=== PATIENT | male | born 1935 | race Hispanic/Latino ===

== ENCOUNTER 2016-06-29 02:21 | Inpatient (IN) | payer MEDICARE, BC ==
[2016-06-29 03:08] VITALS: BMI 37.7
--- NOTE | 2016-06-29 04:05 | ED PDOC ---
Arrival/HPI - General Historian: Patient, Spouse, Family, EMS - History of Present Illness Time/Duration: Prior to Arrival Symptom Course: Unchanged Quality: Aching (right knee) Severity Level: 6 <John Willis - Last Filed: 06/29/16 07:07> <Aramis Orozco - Last Filed: 06/29/16 20:40> - General Chief Complaint: Lower Extremity Problem/Injury Time Seen by Provider: 06/29/16 03:06 - History of Present Illness Narrative History of Present Illness (Text): 06/29/16 04:00 This is an 80 year old male with PMH notable for dementia and HTN presenting to the ED s/p fall at home. The patient reports that he does not remember falling. According to the patient's family, the patient has had deteriorating short term memory. The patient reports pain in his right knee. The patient reports that he felt weak since 06/28/16 in the AM. He states that he had difficulty moving his legs. The patient normally ambulates with an assistive device. The patient denies fever, chills, headache, chest pain, SOB, abdominal pain, changes in bowel/bladder, and extremity paresthesias. PMH: HTN, dementia Allergy: NKDA Surg: Pilonidal Cyst removal Soc: Quit smoking >10yrs ago, denies EtOH PMD; Dr. Bedolla Podiatry: Dr. Hay (John Willis) Past Medical History - Provider Review Nursing Documentation Reviewed: Yes - Travel History Have you recently traveled outside [place] w/in the past 3 mons?: No - Past History Past History: Non-Contributing - Cardiac Hx Hypertension: Yes - Psychiatric Hx Substance Use: No - Surgical History Other/Comment: pilonidal cyst <John Willis - Last Filed: 06/29/16 07:07> Family/Social History Family/Social History: No Known Family HX Smoking Status: Former Smoker Hx Alcohol Use: No Hx Substance Use: No <John Willis - Last Filed: 06/29/16 07:07> Allergies/Home Meds <John Willis - Last Filed: 06/29/16 07:07> <Aramis Orozco - Last Filed: 06/29/16 20:40> Allergies/Adverse Reactions: Allergies No Known Allergies Allergy (Verified 06/29/16 03:08) Home Medications: Home Meds Medication Instructions Recorded Confirmed Furosemide [Lasix] 40 mg PO 06/29/16 Losartan Potassium [Cozaar] 06/29/16 Review of Systems - Physician Review All systems were reviewed & negative as marked: Yes - Review of Systems Constitutional: absent: Fatigue, Fevers Eyes: absent: Vision Changes, Photophobia ENT: absent: Hearing Changes, Tinnitus Respiratory: absent: SOB, Cough Cardiovascular: absent: Chest Pain, Palpitations Gastrointestinal: absent: Abdominal Pain, Nausea, Vomiting Genitourinary Male: absent: Dysuria, Frequency Musculoskeletal: absent: Arthralgias Skin: absent: Rash, Pruritis Neurological: absent: Headache, Dizziness Endocrine: absent: Diaphoresis, Polyuria Hemo/Lymphatic: absent: Adenopathy Psychiatric: Other (AMS per family ) <John Willis - Last Filed: 06/29/16 07:07> Physical Exam Blood Pressure: Hypotensive Pulse: Regular Respiratory Rate: Tachypneic Appearance: Positive for: Well-Appearing, Non-Toxic, Comfortable Pain Distress: None Mental Status: Positive for: Alert and Oriented X 3 - Systems Exam Head: Present: Atraumatic, Normocephalic. No: Abrasion, Laceration Pupils: Present: PERRL Extroacular Muscles: Present: EOMI. No: Entrapment Conjunctiva: Present: Normal. No: Injected Mouth: Present: Dry Respiratory/Chest: Present: Clear to Auscultation, Good Air Exchange, Tachypneic. No: Respiratory Distress, Accessory Muscle Use Cardiovascular: Present: Regular Rate and Rhythm, Normal S1, S2. No: Murmurs Abdomen: Present: Normal Bowel Sounds. No: Tenderness, Distention, Peritoneal Signs Upper Extremity: Present: Normal Inspection, NORMAL PULSES, Neurovascularly Intact. No: Cyanosis, Edema Lower Extremity: Present: Normal Inspection, Tenderness, Neurovascularly Intact , Other (abrasion right wright, chronic venous stasis changes foot and ankle B/L) . No: Edema, NORMAL PULSES (diminished PT and DP pulse B/L), Swelling, Deformity Neurological: Present: GCS=15, CN II-XII Intact Skin: Present: Warm, Dry, Abrasion Psychiatric: Present: Alert, Oriented x 3 <John Willis - Last Filed: 06/29/16 07:07> Vital Signs Temp Pulse Resp BP Pulse Ox 06/29/16 16:15 81 16 160/82 H 96 06/29/16 14:15 95 H 18 162/88 H 97 06/29/16 11:55 98 H 20 145/81 99 06/29/16 10:00 88 18 141/72 98 06/29/16 07:44 80 18 134/65 97 06/29/16 06:16 98.4 F 92 H 20 171/79 H 97 06/29/16 05:13 97.8 F 06/29/16 03:18 88 15 104/48 L 100 Medical Decision Making - RAD Interpretation Radiophone Operator: ED Physician, Radiologist - EKG Interpretation Interpreted by ED Physician: Yes <John Willis - Last Filed: 06/29/16 07:07> <Aramis Orozco - Last Filed: 06/29/16 20:40> ED Course and Treatment: 06/29/16 04:11 Impression: This is an 80 year old male with PMH notable for dementia and HTN presenting to the ED s/p fall at home. The patient has impaired short term memory. The patient does not remember his fall at home and is altered as per family. Differential: Syncope Arrhythmia Electrolyte Imbalance Vasovagal Syncope Plan: Admit to Hospital for telemetric monitoring CT Head Right Knee XR EKG CBC, CMP, Mag, Phos, Cardiac ISO, PT, PTT Prior Visits: None Progress Note: Patient seen and examined at the bedside. Minimal distress 2/2 to right knee pain. Patient alert and orieted to person, place, time, but not situation. The patient is tachypneic and sating 92% on room air. Saturation increased to 96% on 4L NC. The patient will be evaluated for syncope. 06/29/16 05:31 Code Sepsis called at 5:21AM for elevated white count, tachypnea, and elevated lactate. Empiric antibiotics (vancomycin 1g and Zosyn 3.375mg) given, 1 dose each. (John Willis) Impression: Pt seen and evaluated with medical malpractice paralegal. Pt, whose past medical history includes dementia and hypertension, presented s/p fall at home. Pt states he is unable to recall the incident and notes he has been experiencing generalized weakness since yesterday. Pt also complaining of right knee pain. Aware and agree with HPI, clinical findings, plan, and management. Plan: -- EKG -- Chest X-ray -- XR Right Knee -- CT Head w/o contrast -- Lanbs, cardiac enzymes, VBG, blood cultures -- UA -- Reassess and disposition 06/29/16 05:[address] Head shows, Brain: There are areas of diminished density in the white matter bilaterally consistent with chronic small vessel ischemic changes. Woodward-white matter differentiation is intact and unremarkable. No mass lesion. No evidence of intracranial hemorrhage. Mild prominence of extra- axial CSF space in right frontal and parietal lobes measuring 8 mm consistent with subdural hygroma likely sequela of old subdural bleed. No acute hemorrhagic products seen. Ventricles: Unremarkable. No ventriculomegaly. Bones/joints: No evidence of fracture. Soft tissues: Unremarkable. Sinuses: Unremarkable as visualized. No acute sinusitis. Mastoid air cells: Unremarkable as visualized. No mastoid effusion. IMPRESSION: 1. No evidence of fracture. No evidence of intracranial bleed. 2. Chronic ischemic changes bilaterally. (Aramis Orozco) - Lab Interpretations Lab Results: 06/29/16 03:33 06/29/16 03:45 Lab Results 06/29/16 06:00: Procalcitonin 31.55 H 06/29/16 05:10: pO2 117 H, VBG pH 7.40, VBG pCO2 33.0 L, VBG HCO3 20.4 L, VBG Total CO2 21.4 L, VBG O2 Sat (Calc) 98.9 H, VBG Base Excess -3.6 L, VBG Potassium 4.3, Sodium 138.0, Chloride 110.0 H, Glucose 111 H, Lactate 2.8 H, FiO2 21.0, Venous Blood Potassium 4.3 06/29/16 03:45: Sodium 138, Chloride 103, Potassium 4.5, Carbon Dioxide 20 L, Anion Gap 20, BUN 41 H, Creatinine 2.4 H, Est GFR ( Amer) 32, Est GFR ( Non-Af Amer) 26, Random Glucose 110, Calcium 9.5, Phosphorus 1.9 L, Magnesium 1.9, Total Bilirubin 0.7, AST 147 H, ALT 34, Alkaline Phosphatase 97, Lactate Dehydrogenase 1269 H, Total Creatine Kinase 7927 H, CK-MB (CK-2) 14.8 H, CK-MB ( CK-2) % 0.2 L, Troponin I 0.30 H*, Total Protein 7.1, Albumin 3.8, Globulin 3.3 , Albumin/Globulin Ratio 1.2 06/29/16 03:33: WBC 24.3 H, RBC 5.27, Hgb 14.5, Hct 42.9, MCV 81.4, MCH 27.5, MCHC 33.8, RDW 14.5, Plt Count 193, MPV 9.7, Neutrophils % (Manual) 74 H, Band Neutrophils % 11 H*, Lymphocytes % (Manual) 3 L, Monocytes % (Manual) 12 H, Platelet Evaluation Normal, PT 13.6 H, INR 1.26 H, APTT 32.7 H - RAD Interpretation Narrative RAD Interpretations (Text): 06/29/16 05:52 CT Head: FINDINGS: Brain: There are areas of diminished density in the white matter bilaterally consistent with chronic small vessel ischemic changes. Woodward-white matter differentiation is intact and unremarkable. No mass lesion. No evidence of intracranial hemorrhage. Mild prominence of extra- axial CSF space in right frontal and parietal lobes measuring 8 mm consistent with subdural hygroma likely sequela of old subdural bleed. No acute hemorrhagic products seen. Ventricles: Unremarkable. No ventriculomegaly. Bones/joints: No evidence of fracture. Soft tissues: Unremarkable. Sinuses: Unremarkable as visualized. No acute sinusitis. Mastoid air cells: Unremarkable as visualized. No mastoid effusion. IMPRESSION: 1. No evidence of fracture. No evidence of intracranial bleed. 2. Chronic ischemic changes bilaterally. CXR: No acute pathology Right Knee XR: No acute fracture or dislocation (John Willis) Radiology Orders: 06/29/16 03:09 HEAD W/O CONTRAST [CT] Stat CHEST PORTABLE [RAD] Stat 06/29/16 03:11 KNEE RIGHT 2 VIEWS (AP & LAT) [RAD] Stat - EKG Interpretation EKG Interpretation (Text): 06/29/16 04:16 Normal Sinus Rhythm Right bundle branch block inferior infarct age undetermined (John Willis) - Medication Orders Current Medication Orders: Acetaminophen (Tylenol 325mg Tab) 650 mg PO Q4 PRN PRN Reason: Fever >100.4 F Last Admin: 06/29/16 11:49 Dose: 650 MG Clotrimazole (Lotrimin 1%) 0 gm TOP BID SARAH Last Admin: 06/29/16 19:28 Dose: MEROPENEM-0.9% SODIUM CHLORIDE (Meropenem 1g/Ns 100ml Ivpb) 100 mls @ 100 mls/ hr IVPB Q12 SARAH PRN Reason: Protocol Stop: 07/06/16 10:01 Last Admin: 06/29/16 11:35 Dose: 100 MLS/HR eMAR Start Stop Document 06/29/16 11:35 [facility] (Rec: 06/29/16 11:35 [place] [id number]) Intravenous Solution Start Date 06/29/16 Start Time 11:35 End Date 06/29/16 End time 12:35 Total Infusion Time 60 Sodium Chloride (Sodium Chloride 0.9%) 1,000 mls @ 50 mls/hr IV .Q20H SARAH Stop: 06/30/16 01:44 Last Admin: 06/29/16 10:37 Dose: 50 MLS/HR eMAR Start Stop Document 06/29/16 10:37 [facility] (Rec: 06/29/16 10:37 [place] [id number]) Intravenous Solution Start Date 06/29/16 Start Time 10:37 Morphine Sulfate (Morphine) 1 mg IVP Q4H PRN PRN Reason: Pain, moderate (4-7) Last Admin: 06/29/16 12:51 Dose: 1 MG MAR Pain Assessment Document 06/29/16 12:51 [facility] (Rec: 06/29/16 12:52 [place] [id number]) Pain Reassessment Is this a pain reassessment? Yes Sleep Is patient sleeping during reassessment? No Presence of Pain Presence of Pain Yes Pain Scale Used Pain Scale Used Numeric Location Left, Right or Bilateral Bilateral Pain Location Body Site Leg Description Intensity of Pain at present 10 IVP Administration Document 06/29/16 12:51 [facility] (Rec: 06/29/16 12:52 [place] [id number]) Charges for Administration # of IVP Administrations 1 Discontinued Medications Piperacillin Sod/Tazobactam Sod (Zosyn 3.375 In Ns 100ml) 100 mls @ 200 mls/hr IVPB STAT STA PRN Reason: Protocol Stop: 06/29/16 05:46 Last Admin: 06/29/16 05:45 Dose: 200 MLS/HR eMAR Start Stop Document 06/29/16 05:45 MR (Rec: 06/29/16 05:45 MR [id number]) Intravenous Solution Start Date 06/29/16 Start Time 05:45 End Date 06/29/16 End time 06:15 Total Infusion Time 30 Vancomycin HCl (Vancomycin 1gm) 250 mls @ 167 mls/hr IVPB STAT STA PRN Reason: Protocol Stop: 06/29/16 06:46 Last Admin: 06/29/16 07:28 Dose: 167 MLS/HR eMAR Start Stop Document 06/29/16 07:28 MR (Rec: 06/29/16 07:28 MR [id number]) Intravenous Solution Start Date 06/29/16 Start Time 07:18 End Date 06/29/16 End time 08:48 Total Infusion Time 90 Sodium Chloride (Sodium Chloride 0.9%) 1,000 mls @ 100 mls/hr IV .Q10H SARAH Last Admin: 06/29/16 05:55 Dose: 100 MLS/HR eMAR Start Stop Document 06/29/16 05:55 MR (Rec: 06/29/16 05:55 MR [id number]) Intravenous Solution Start Date 06/29/16 Start Time 05:55 Cefepime HCl (Maxipime 1gm) 100 mls @ 100 mls/hr IVPB Q12 SARAH PRN Reason: Protocol Stop: 07/06/16 10:01 Last Admin: 06/29/16 09:32 Dose: 100 MLS/HR eMAR Start Stop Document 06/29/16 09:32 [place] (Rec: 06/29/16 09:32 [place] [id number]) Intravenous Solution Start Date 06/29/16 Start Time 09:32 End Date 06/29/16 End time 10:35 Total Infusion Time 63 Disposition/Present on Arrival - Present on Arrival Any Indicators Present on Arrival: No History of DVT/PE: No History of Uncontrolled Diabetes: No Urinary Catheter: No History of Decub. Ulcer: No History Surgical Site Infection Following: None - Disposition Have Diagnosis and Disposition been Completed?: Yes Disposition Time: 04:00 Patient Plan: Admission <John Willis - Last Filed: 06/29/16 07:07> - Present on Arrival Any Indicators Present on Arrival: No History of DVT/PE: No History of Uncontrolled Diabetes: No Urinary Catheter: No History of Decub. Ulcer: No History Surgical Site Infection Following: None - Disposition Have Diagnosis and Disposition been Completed?: Yes Disposition Time: :22 Patient Plan: Admission <Aramis Orozco - Last Filed: 06/29/16 20:40> - Disposition Diagnosis: Sepsis, NSTEMI (non-ST elevated myocardial infarction), Rhabdomyolysis Disposition: HOSPITALIZED Patient Problems: Current Active Problems Problem Status Diagnosed NSTEMI (non-ST elevated myocardial infarction) Acute Sepsis Acute Condition: FAIR
[2016-06-29 04:11] LABS: HEMATOCRIT 42.9 % (42.0-52.0); MEAN CELL VOLUME 81.4 fL (80.0-105.0); MEAN CORPUSCULAR HEMOGLOBIN 27.5 pg (25.0-35.0); MEAN CORPUSCULAR HGB CONC 33.8 g/dl (31.0-37.0); MEAN PLATELET VOLUME 9.7 fl (7.0-11.0); PLATELET COUNT 193 10^3/uL (120.0-450.0); RED CELL DISTRIBUTION WIDTH 14.5 % (11.5-14.5); WHITE BLOOD COUNT 24.3 10^3/ul (4.5-11.0)
[2016-06-29 04:15] LABS: ADD MANUAL DIFF? YES
[2016-06-29 04:25] LABS: INR 1.26 (0.93-1.08); PARTIAL THROMBOPLASTIN TIME 32.7 Seconds (23.7-30.8)
[2016-06-29 04:39] LABS: ALB/GLOB RATIO 1.2 (1.1-1.8); BILIRUBIN,TOTAL 0.7 mg/dL (0.2-1.3); CALCIUM 9.5 mg/dL (8.4-10.5); MAGNESIUM 1.9 mg/dL (1.7-2.2); PHOSPHOROUS 1.9 mg/dL (2.5-4.5); POTASSIUM 4.5 mmol/L (3.6-5.0); TOTAL PROTEIN 7.1 g/dL (5.8-8.3)
[2016-06-29 05:10] LABS: TROPONIN I 0.3 ng/mL
[2016-06-29 05:11] LABS: NEUTROPHIL 74 % (50.0-70.0)
[2016-06-29 05:12] LABS: BAND 11 % (0-2)
[2016-06-29 05:13] LABS: PLATELET ESTIMATE NORMAL (NORMAL)
[2016-06-29] MEDS ORDERED: Piperacillin/Tazobact 3.375 gm 100 ML IVPB STA (05:17)
[2016-06-29] MEDS ORDERED: Vancomycin 1gm in NS 250ml 250 ML IVPB STA (05:17)
[2016-06-29 05:18] LABS: VENOUS BLOOD GAS BASE EXCESS -3.6 mmol/L (0.0-2.0)
[2016-06-29] MEDS ORDERED: Sodium Chloride 0.9% 1,000 ML IV SCH ×2 (05:45→09:58)
--- NOTE | 2016-06-29 07:59 | RAD ---
PROCEDURE: Right Knee Radiographs. HISTORY: fall COMPARISON: None. FINDINGS: BONES: No fracture. Superior patellar osseous productive changes noted anteriorly and posteriorly. Tibial spine spurring JOINTS: Osteoarthrosis medial femoral tibial and patellofemoral compartments probably due most notable. . The lateral view of the patellofemoral joint is limited -nonetheless JOINT EFFUSION: Small OTHER FINDINGS: Vascular calcifications IMPRESSION: No fracture. Osteoarthrosis. Atherosclerotic vascular disease
--- NOTE | 2016-06-29 08:01 | RAD ---
HISTORY: syncope COMPARISON: No prior. FINDINGS: LUNGS: No gross consolidation The right infra and periareolar opacity perceived is probably due to summation of bronchovascular markings and prominent anterior inferior right costo cartilaginous junctional calcifications PLEURA: No significant pleural effusion identified, no pneumothorax apparent. CARDIOVASCULAR: Mild cardiomegaly OSSEOUS STRUCTURES: Diffuse thoracic spondylosis. Bilateral shoulder arthrosis VISUALIZED UPPER ABDOMEN: Normal. OTHER FINDINGS: None. IMPRESSION: No active pulmonary disease.
--- NOTE | 2016-06-29 08:03 | CT ---
PROCEDURE: CT HEAD WITHOUT CONTRAST. HISTORY: fall COMPARISON: None available. TECHNIQUE: Axial computed tomography images were obtained through the head/brain without intravenous contrast. Radiation dose: Total exam DLP = 768.25 mGy-cm. FINDINGS: HEMORRHAGE: The current study reveals enlargement of the right frontal parietal subarachnoid space with underlying cortical atrophic changes. Findings could represent ex vacuo dilatation of the subarachnoid space versus subdural hygroma or less likely chronic subdural hematoma. BRAIN: There are minor chronic periventricular white matter ischemic changes. There also a few scattered chronic bilateral basal nuclei lacunar type infarcts. Note made of a small round/elliptical shaped low-attenuation focus within the mid ventral edward that could represent artifact note chronic ischemic focus not excluded. Mild vascular calcifications are present. VENTRICLES: Mild generalized volume loss with more localized cortical atrophic changes right frontoparietal lobe. CALVARIUM: No acute calvarial fractures. . . PARANASAL SINUSES: Unremarkable as visualized. No significant inflammatory changes. MASTOID AIR CELLS: Unremarkable as visualized. No inflammatory changes. OTHER FINDINGS: Bilateral cataract surgery. IMPRESSION: No acute intracranial hemorrhage. The enlarged subarachnoid space right frontoparietal region could be due to atrophy versus subdural hygroma. Chronic subdural hematoma cannot be completely excluded. . Mild chronic periventricular white matter and scattered chronic bilateral basal nuclei ischemic changes. . Questionable crossing streak and beam hardening artifact versus small ischemic focus within the mid ventral edward.
[2016-06-29 08:47] LABS: VENOUS BLOOD GAS BASE EXCESS -4.2 mmol/L (0.0-2.0); VENOUS BLOOD PH 7.35 (7.32-7.43)
[2016-06-29] MEDS ORDERED: Cefepime 1gm in NS 100ml 100 ML IVPB SCH (10:00)
[2016-06-29] MEDS: Meropenem 1g/NS 100mL IVPB 100 ML IVPB SCH ×2 (11:35→21:48)
--- NOTE | 2016-06-29 12:32 | CON ---
DATE: 06/29/2016 REQUESTING PHYSICIAN: Dr. Last REASON FOR CONSULTATION: Elevated troponin. HISTORY: This is an 80-year-old man with a history of hypertension and dementia, who apparently fell at home. He complained of severe pain of his right knee. He feels that his fall was secondary to a knee weakness. There are conflicting reports in the chart as to whether or not he had loss of consc iousness. He was brought to the Emergency Room and admitted for evaluation. He is seen in the Emerg ency Room at the present time. He remains uncomfortable. He states that his right knee is painful. He has multiple lesions on his feet and legs as well. He is unable to provide much history regardin g prior injury or providers of care. The rest of the history is obtained via the chart. PAST HISTORY: Notable for the problems mentioned above. He underwent prior pilonidal cyst surgery. He apparently has been under the care of Dr. Hay. Apparently, upon his initial presentation, he was hypotensive, but improved with IV fluids. MEDICATIONS AT HOME: Included Cozaar and Lasix. ALLERGIES: He apparently has no reported allergies. SOCIAL HISTORY: He is a former smoker. There is no history of alcohol use. FAMILY HISTORY: He is uncertain. REVIEW OF SYSTEMS: Ten point review of systems is limited, but otherwise unremarkable. PHYSICAL EXAMINATION: GENERAL: He is a somewhat disheveled appearing elderly man. VITAL SIGNS: His recent blood pressure is 140/70 with a pulse of 88 and respirations are 16. He is currently afebrile. HEENT: Normocephalic, atraumatic. Pupils equally react to light and accommodation. NECK: Supple. No JVD noted. CHEST: A few scattered rhonchi heard. HEART: PMI displaced laterally with a systolic murmur present at the left sternal border. ABDOMEN: Soft, nontender, normoactive bowel sounds. EXTREMITIES: 1+ lower extremity edema is noted. An abrasion on his right knee is noted as well. Ch ronic stasis changes are present on both lower extremities. He has multiple apparent lacerations and evidence of skin breakdown on his toes and anterior shins. PSYCHIATRIC: Somewhat restless and appears disoriented. NEUROLOGIC: Moving all 4 extremities, but unable to fully assess. DIAGNOSTIC DATA: Chest x-ray reveals enlarged cardiac silhouette with no clear evidence of congestiv e changes. Electrocardiogram reveals sinus rhythm with right bundle branch block and prior inferior wall myocardial infarction cannot be excluded. White count is 24.3, hemoglobin and hematocrit of 14. 5 and 42.9 with a platelet count of 193,000. PT, PTT 13.6 and 32.7. Arterial blood gas revealed a p H of 7.40, pCO2 of 33 and pO2 of 113. Potassium 4.5. BUN and creatinine are 41 and 2.4. Phosphorus 1.9. CK 7927 with a negative MB fraction. Troponin 0.30. IMPRESSION: 1. Status post fall with evidence of mild rhabdomyolysis. 2. Elevated troponin, suspect this may be due to reduced renal clearance. 3. Renal insufficiency, unclear if this is acute or chronic. 4. Altered mental status, unclear if this is baseline dementia. 5. Rest of problems as noted. RECOMMENDATION: The admission to telemetry is reasonable. Repeat cardiac enzymes will be planned fo r the morning. Repeat electrocardiogram will be planned as well. An echocardiogram will be obtained to assess LV size and wall motion abnormalities. Broad spectrum antibiotics were provided. Culture s have been drawn. Podiatric followup would be appropriate. Thank you for this consultation. I would be happy to follow along through his hospital course and ma ke further recommendations as needed. Ashish Willis MD cc: [id number] TT: 06/29/2016 12:31:35 Confirmation # [id number] Dictation # [id number]
[2016-06-29] MEDS: Morphine 2 mg/ml ISec IVP PRN ×2 (12:51→22:19)
[2016-06-29 13:13] LABS: PH,URINE 5.5 (4.7-8.0); URINE BILIRUBIN NEGATIVE (NEGATIVE); URINE BLOOD LARGE (NEGATIVE); URINE GLUCOSE (UA) NEGATIVE (NEGATIVE); URINE KETONE NEGATIVE (NEGATIVE); URINE LEUKOCYTE ESTERASE TRACE Leu/uL (NEGATIVE); URINE PROTEIN 100 mg/dL (<30 mg/dL); URINE UROBILINOGEN 0.2 E.U./dL (<1 E.U./dL)
[2016-06-29 13:15] LABS: URINE APPEARANCE TURBID (CLEAR)
[2016-06-29 13:16] LABS: URINE COLOR YELLOW (YELLOW)
[2016-06-29 13:17] LABS: URINE BACTERIA FEW (NEG); URINE WBC 0 - 2 /hpf (0-6)
--- NOTE | 2016-06-29 16:47 | PN ---
DATE: 06/29/2016 This is an 80-year-old male seen in the ER for multiple leg ulcers. The patient is known to me from the podiatry office where he comes in every 2 months for fungal nail and calluses. The patient is seen at bedside with his family. He apparently had a fall at home which brought him into the Emergency Room. The patient's is upset about his feet. He has fissures and calluses on his feet and I did discuss with her that, her comes to the office all the time in shoes that are big, that are rubbing on his toes and comes in without any socks. She does agree that he does that at home. He walks barefoot at home and she states that the beagle at home is constantly licking on his feet. REVIEW OF SYSTEMS: Shows that he has negative fever or chills. He was on the floor for about 25 minutes. His ENT is negative. His eyes negative. Respiratory is negative. Chest pain: He does not have any chest pain or palpitations; however, his cardiac enzymes are elevated. He denies any gastrointestinal or genitourinary problems. MUSCULOSKELETAL: Positive for arthralgias. SKIN: For the fissures and the calluses and the fungal nails as noted above. NEUROLOGICAL: Also negative. PHYSICAL EXAMINATION: GENERAL: Shows he is alert at bedside. He is slightly with some dementia. VITAL SIGNS: Show a temperature of 98.7, his pulse is 95, his blood pressure is 162/88 and his oxygen sat was 97. MEDICATIONS: Noted on the JUN. He is presently being given Maxipime, meropenem , morphine, sodium chloride, and Tylenol. LABORATORY DATA: The patient's labs were also reviewed. He has a white blood cell count of 24.3. His H and H is 14.5 and 42.9. His neutrophils are 74 and his lymphocytes were 3 with a shift to the left. The patient's blood gases when he came in the pO2 was high at 117, pCO2 of 33. Chemistry shows a BUN and creatinine of 41 and 2.4. His random glucose was 110. His cardiac enzymes are all elevated. Troponins were 0.3. The patient's lower extremities were evaluated. He has weakly palpable pedal pulses on his right foot. He has 1/4 palpable pedal pulses on his left foot. He has bilateral. +1 edema to his feet and legs. He has fungal nails to all of his toes. He has large calluses on the bunion area on his left foot, especially with an open fissure on that callus. It does not probe to bone and there is necrotic tissue inside that fissure. He also has a fissure on dorsal medial aspect of the hallux. Again on that foot, it is a partial thickness and he has a necrotic callus on his second PIPJ, all on his left foot. He has an open wound on the wright on his left leg. This is secondary to the fall that he had at home, measures approximately 1.5 x 1.5 x 0.3 cm and there are no fulminant signs of infection. There is some redness to the right foot around the mid foot area and the lower leg which may be coming from that open fissure. However, at this time, it is not certain that the white blood cell count is coming from the foot. The patient did have evidence of mild rhabdomyolysis which could also be causing some of that white blood cell count and the CK. ASSESSMENT: Fungal nails, multiple necrotic fissures and partial thickness, an ulcer to the leg. PLAN OF TREATMENT: Orders were put in for a hemoglobin A1c, CRP, ESR. We also put in for a foot x-ray. Wound culture was taken and done of the fissure, although it was dry and I am not sure if it is going to bring back much. We also put in for him to have heel pads while he is in bed for offloading. We also ordered Lotrimin for the fungal infection on his foot and once he is settled in the bed, we will come back and we will debride all of the calluses on his feet. The patient will be seen and followed. All his wounds were cleansed with Betadine and dry sterile dressings. Megan Hay DPM cc: [id number] TT: 06/29/2016 16:46:18 Confirmation # [id number] Dictation # [id number] renard ROSS
--- NOTE | 2016-06-29 18:05 | CP.PCM.CON ---
History of Present Illness - History of Present Illness History of Present Illness: 80 year old male with PMH of HTN, dementia, obesity with BMI 38 came in to [facility] after he sustained a mechanical fall at home. He did not hit his head and did not lose consciousness, no convulsions, no fevers at home, no dizziness, no lightheadedness, no chest pain or palpitations. He was not able to get himself off the floor and stayed there for sometime. In the ED, he was noted to have low grade fevers and Infectious diseases consult is requested to further evaluate and manage. The patient has wounds on both lower extremities whic has ongoing for the past month, but seemed to have worsened over the past few days. Patient has a pet dog at home, but no history of soaking his legs in water. Review of Systems - Review of Systems All systems: reviewed and no additional remarkable complaints except (as per hPI ) Past Patient History - Past Medical History & Family History Past Medical History?: Yes Past Family History: Reviewed and not pertinent - Past Social History Smoking Status: Former Smoker Alcohol: None Drugs: Denies Home Situation {Lives}: With Family - CARDIAC Hx Hypertension: Yes - PSYCHIATRIC Hx Substance Use: No - SURGICAL HISTORY Other/Comment: pilonidal cyst Meds Allergies/Adverse Reactions: Allergies Allergy/AdvReac Type Severity Reaction Status Date / Time No Known Allergies Allergy Verified 06/29/16 03:08 - Medications Medications: Current Medications Sodium Chloride (Sodium Chloride 0.9%) 1,000 mls @ 100 mls/hr IV .Q10H [facility] Last Admin: 06/29/16 05:55 Dose: 100 mls/hr Cefepime HCl (Maxipime 1gm) 100 mls @ 100 mls/hr IVPB Q12 [facility] PRN Reason: Protocol Stop: 07/06/16 10:01 Physical Exam - Constitutional Appears: Non-toxic, No Acute Distress - Head Exam Head Exam: NORMAL INSPECTION - ENT Exam ENT Exam: Mucous Membranes Moist - Neck Exam Neck exam: Negative for: Lymphadenopathy, Meningismus - Respiratory Exam Respiratory Exam: Decreased Breath Sounds - Cardiovascular Exam Cardiovascular Exam: +S1, +S2 - GI/Abdominal Exam GI & Abdominal Exam: Soft. absent: Tenderness - Extremities Exam Additional comments: both lower extremities with dressings in place; areas of erythema noted Results - Vital Signs Recent Vital Signs: Last Vital Signs Temp 97.8 F 06/29/16 05:13 Pulse 88 06/29/16 03:18 Resp 15 06/29/16 03:18 BP 104/48 L 06/29/16 03:18 Pulse Ox 100 06/29/16 03:18 - Labs Result Diagrams: 06/29/16 03:33 06/29/16 03:45 Assessment & Plan - Assessment and Plan (Free Text) Plan: Assessment Consider sepsis secondary to both lower extremities skin and skin structure infection HTN chronic renal failure dementia obesity with BMI 38 Plan Started patient on a dose of IV Vancomycin and Merrem pending blood, wound, urine cx, PCT, CXR Follow up Podiatry evaluation will monitor clinically
[2016-06-29] MEDS: Clotrimazole 1% Cream(30 gm) TOP SCH (19:28)
--- NOTE | 2016-06-29 20:02 | CARD ---
APPROVED REPORT EKG Measurement Heart [id number] <Conclusion> Normal sinus rhythm Right bundle branch block Possible Inferior infarct, age undetermined Abnormal ECG
--- NOTE | 2016-06-29 21:26 | CP.PCM.PN ---
Subjective - Date & Time of Evaluation Date of Evaluation: 06/29/16 Time of Evaluation: 21:30 - Subjective Subjective: S:Patient was seen at bedside because nurse called and told that BP was 184/84. He has no headache, dizziness, heaviness in head, nausea. States that he took cozaar and lasix about one week ago , he was not sure about that. Pertinent medical record was reviewed. O: Last Vital Signs 3 Temp 98 F 06/29/16 18:30 Pulse 82 06/29/16 18:30 Resp 22 06/29/16 18:30 BP 184/84 H 06/29/16 18:30 Pulse Ox 96 06/29/16 16:15 Awake, not in distress. Confused. LUNGS:Normal breathing pattern. A:Elevated blood pressure reading P:Cozaar 100 mg PO STAT. Objective - Vital Signs/Intake and Output Vital Signs (last 24 hours): Temp Pulse Resp BP Pulse Ox 98 F 82 22 184/84 H 96 06/29/16 18:30 06/29/16 18:30 06/29/16 18:30 06/29/16 18:30 06/29/16 16:15 - Medications Medications: Current Medications Acetaminophen (Tylenol 325mg Tab) 650 mg PO Q4 PRN PRN Reason: Fever >100.4 F Last Admin: 06/29/16 11:49 Dose: 650 mg Clotrimazole (Lotrimin 1%) 0 gm TOP BID [facility] Last Admin: 06/29/16 19:28 Dose: Not Given MEROPENEM-0.9% SODIUM CHLORIDE (Meropenem 1g/Ns 100ml Ivpb) 100 mls @ 100 mls/ hr IVPB Q12 [facility] PRN Reason: Protocol Stop: 07/06/16 10:01 Last Admin: 06/29/16 11:35 Dose: 100 mls/hr Sodium Chloride (Sodium Chloride 0.9%) 1,000 mls @ 50 mls/hr IV .Q20H [facility] Stop: 06/30/16 01:44 Last Admin: 06/29/16 10:37 Dose: 50 mls/hr Morphine Sulfate (Morphine) 1 mg IVP Q4H PRN PRN Reason: Pain, moderate (4-7) Last Admin: 06/29/16 12:51 Dose: 1 mg - Labs Labs: PT 13.6 Seconds (9.9-11.8) H 06/29/16 03:33 INR 1.26 (0.93-1.08) H 06/29/16 03:33 APTT 32.7 Seconds (23.7-30.8) H 06/29/16 03:33
--- NOTE | 2016-06-29 21:49 | CON ---
DATE: 06/29/2016 HISTORY OF PRESENT ILLNESS: This is an 80-year-old white male with past medical history of hypertens ion, dementia, came to the Emergency Room with severe right knee pain. The patient remains uncomfort able because of right knee pain and has multiple lesions on his feet and legs, unable to provide much of the history about that. PAST MEDICAL HISTORY: The patient had surgery for a Pilonidal cyst. PHYSICAL EXAMINATION: HEENT: Normocephalic, atraumatic. NECK: Supple. NEUROLOGIC: Awake, alert, oriented. No aphasia. Cranial nerves II through XII were tested. Pupils reactive. EOM intact. Visual dietrich full. No facial asymmetry. Tongue midline. Motor examinatio n: Moves all the extremities spontaneously. Deep tendon reflexes 1+. Both plantars are downgoing. Sensory appears intact. Cerebellar and gait deferred. IMPRESSION AND PLAN: Intermittent confusional state, superimposed on dementia, renal insufficiency, right knee pain. X-ray of the knee is done, did not show fracture. Had a CAT scan of the head that was done, which was reported no infarct or bleed. Workup is in progress. We will follow up. Trenton Conroy MD cc: [id number] TT: 06/29/2016 21:49:48 Confirmation # [id number] Dictation # [id number] [place]
[2016-06-29] MEDS: Potassium & Sodium Phosphate PO SCH (21:50)
--- NOTE | 2016-06-30 06:18 | HP ---
CHIEF COMPLAINT AND HISTORY OF PRESENT ILLNESS: This is an 80-year-old male who is [facility] with complaints of right knee pain. The patient has a history of hypertension and dementia. The patient has been having falls because of his pain. He does not remember exactly how many times he has had a fall. The patient's family reports that he has been having short term memory loss. He has been feeling weak. The patient has been having difficulty moving his legs. He mainly complains of pain that is 5/10 in his right knee. He denies any headaches, no chest pain or shortness of breat h, no nausea, no vomiting, no dysuria, frequency, no abdominal pain, no back pain, no weakness in the arms or the legs. REVIEW OF SYSTEMS: All other review of symptoms are within normal limits except as mentioned. ALLERGIES: No known drug allergies. HOME MEDICATIONS: Cozaar and Lasix. SOCIAL HISTORY: Former smoker. Denies alcohol or drug abuse. PAST MEDICAL HISTORY: As mentioned above. Also has: 1. Hypertension. 2. Nephrolithiasis. 3. Cataracts. 4. Hearing impairment. PHYSICAL EXAMINATION: VITAL SIGNS: Temperature is 98.4, pulse of 92, blood pressure 171/79, repeat is 134/65, respirations 20, O2 saturation 97%, height is 5 feet 10 inches, weight is 263 pounds, BMI 37.7. GENERAL: Patient lying in bed, flat, and in no apparent distress. HEAD AND NECK EXAM: Atraumatic, normocephalic. Conjunctivae are pink. Throat clear and mouth with moist mucosa. Oropharynx benign. EYES: Extraocular movements are intact. PERRLA. NECK: Supple. No JVD, thyromegaly, or adenopathy. No bruits. HEART: S1 and S2 regular rate and rhythm. No murmurs, rubs, or gallops. LUNGS: Clear to auscultation bilaterally. No wheezing rales or rhonchi appreciated. No retraction s on exam. ABDOMEN: Soft, nontender, nondistended. Bowel sounds are positive in all quadrants. No rebound. No hepatosplenomegaly. EXTREMITIES: Lower extremities have 1+ pulses. There is 1+ edema bilaterally. He has onychomycos is. There is a necrotic callus on the second PIP joint area of the left foot. NEURO: No facial asymmetry, tongue is midline, no uvula deviation. Power is 5/5 in upper extremity and 5/5 in lower extremity. Sensation is normal in upper extremity and lower extremity. PSYCH: Awake, alert, oriented x3. No anxiety or depression symptoms. Good insight. Normal affec t. : No CVA tenderness VASCULAR: 2+ pulses in carotid and pedal pulses. SKIN: No erythema or abnormal nodules noted. SPINE: Normal curvature. LYMPHADENOPATHY: No anterior cervical or posterior cervical adenopathy. No inguinal adenopathy. LABORATORY DATA: White count of 24.3, hemoglobin is 14.5. He has neutrophils of 74% with bandemia o f 11%. INR is 1.2. He has a pH of 7.35. He has a pCO2 of 38 and his bicarbonate is 21. Lactate in itially was 2.8, and now it is 1.8. He has a sodium 138, potassium 4.5, creatinine is 2.4. His init ial troponin 0.3, repeat is 0.4. Procalcitonin level is 31.5. The patient has blood that is large, nitrites are negative, bilirubin is negative. Chest x-ray shows no active pulmonary disease. He had a CT of the head done, shows no acute intracra nial hemorrhage. There is an enlarged subarachnoid space, right frontoparietal region, could be due to atrophy versus subdural hygroma. He has an EKG that shows sinus rhythm at 76, right bundle branch block, QTC 483. His right knee x-ray done shows no fracture. ASSESSMENT: 1. Sepsis. 2. Acute kidney injury. 3. Elevated troponin. 4. Rhabdomyolysis. 5. Hypophosphatemia. PLAN: The patient is going to be admitted to the hospital because of sepsis. I will get ID and podi atry evaluation. The patient is also going to need cardiology evaluation for the elevated troponin. The patient was given Tylenol for pain, but was not having any improvement. I will get orthopedics for evaluation of the right knee. I will place him on IV fluids for his acute kidney injury. He is going to be on morphine for pain. He is on meropenem for antibiotics Dopplers of the lower legs have been ordered. An echo has been ordered as well. We will repeat the patient's blood work. He has h ypophosphatemia, this will need to be replaced as well. We will continue to follow closely. Overall prognosis is guarded. Kolby Last MD cc: [id number] TT: 06/30/2016 06:17:14 jn
[2016-06-30 07:59] LABS: HEMATOCRIT 41.3 % (42.0-52.0); MEAN CELL VOLUME 81.9 fL (80.0-105.0); MEAN CORPUSCULAR HGB CONC 34.1 g/dl (31.0-37.0); MEAN PLATELET VOLUME 9.4 fl (7.0-11.0); RED CELL DISTRIBUTION WIDTH 14.7 % (11.5-14.5); WHITE BLOOD COUNT 23.7 10^3/ul (4.5-11.0)
[2016-06-30 08:34] LABS: ALB/GLOB RATIO 1.1 (1.1-1.8); BILIRUBIN,TOTAL 1.1 mg/dL (0.2-1.3); CALCIUM 8.8 mg/dL (8.4-10.5); MAGNESIUM 2.2 mg/dL (1.7-2.2); PHOSPHOROUS 6.1 mg/dL (2.5-4.5); POTASSIUM 4.6 mmol/L (3.6-5.0); TOTAL PROTEIN 6.8 g/dL (5.8-8.3)
[2016-06-30] MEDS ORDERED: Bupivacaine 0.5% Inj(30mL) IJ ONE (08:36)
[2016-06-30] MEDS ORDERED: MethylPREDNISolone Depo 40 mg/ml Inj IM ONE (08:36)
--- NOTE | 2016-06-30 08:49 | PN ---
DATE: 06/30/2016 SUBJECTIVE: The patient has no complaints of any chest pain, no shortness of breath, no headaches. He says he does have pain in the right knee. PHYSICAL EXAMINATION: VITAL SIGNS: Temperature is 98, pulse of 82, blood pressure is 184/84, respirations 22. GENERAL: The patient comfortable, in no acute distress. HEENT: Anicteric sclerae. Moist mucosa. NECK: No JVD or adenopathy. CARDIAC: S1/S2. No murmurs. No rubs. Regular. RESPIRATORY: Clear to auscultation bilaterally. No wheezes, rales, or rhonchi. Good air entry. ABDOMEN: Bowel sounds are positive, soft, nontender, and nondistended. EXTREMITIES: No edema. Has 1+ pulses. LABORATORIES: Yesterday's white count was 24.3. His creatinine was 2.4. Telemetry monitoring, the patient had a junctional rhythm on monitor. He is confused and agitated. ASSESSMENT: 1. Delirium. 2. Acute kidney injury. 3. Sepsis. 4. Obese with a body mass index of 37. 5. Right knee pain. 6. Elevated troponin. 7. Rhabdomyolysis. 8. Probable peripheral arterial disease. 9. Hypophosphatemia. PLAN: The patient is going to be admitted to the hospital. He has an elevated procalcitonin level a nd elevated white count. He is being followed by multiple consultants. Appreciate their input. The patient is on meropenem for antibiotics. He has blood cultures that are negative so far. OR cultur es are pending. There is also a that has been ordered and a lower extremity Doppler. The natty ent is on Tylenol. He was given phosphorus replacement yesterday. He is on morphine for pain. He i s going to be needing physical therapy. I have ordered that as well. We will get repeat blood work today. We will need to replace his phosphorus. I have ordered urine protein/creatinine ratio to krys ntify his urine. Waiting for those results. Kolby Last MD cc: [id number] TT: 06/30/2016 08:48:33 Confirmation # [id number] Dictation # [id number] [place]
[2016-06-30] MEDS ORDERED: Vancomycin 2 GM in Sodium Chloride 0.9% 500 ML IVPB ONE (09:09)
[2016-06-30 09:21] LABS: TROPONIN I 0.18 ng/mL
--- NOTE | 2016-06-30 09:23 | RAD ---
PROCEDURE: Left Foot Radiographs. HISTORY: ulcer bunion left foot COMPARISON: None. FINDINGS: BONES: No definite radiographic evidence of osteomyelitis. No evidence of acute fracture. JOINTS: Advanced arthritic degenerative changes. SOFT TISSUES: Soft tissue swelling seen in the left big toe OTHER FINDINGS: None. IMPRESSION: No definite radiographic evidence of osteomyelitis. Soft tissue swelling of the left big toe. Advanced arthritic degenerative changes.
[2016-06-30] MEDS ORDERED: Sodium Chloride 0.45% 1,000 ML IV SCH (09:45)
--- NOTE | 2016-06-30 10:04 | CP.PCM.PN ---
Subjective - Date & Time of Evaluation Date of Evaluation: 06/30/16 Time of Evaluation: 08:00 - Subjective Subjective: Stable on 2R. Poor historian. Denies CP, SOB V/S noted. RSR/S. Tachy PE: Lungs: clear Cor.: S1S2 Abd.: soft Ext.: no edema Neuro.: ementia Labs noted: WBC= 23,700, Cr.= 3.4, trop.= 0.18 BC x1 + GPC in chains ECG 06/29: RSR, RBBB, Possible IMI Objective - Vital Signs/Intake and Output Vital Signs (last 24 hours): Temp Pulse Resp BP Pulse Ox 98.6 F 102 H 22 133/66 95 06/30/16 06:00 06/30/16 06:00 06/30/16 06:00 06/30/16 06:00 06/30/16 06:00 Intake and Output: 06/30/16 06/30/16 06:59 18:59 Intake Total 620 Output Total 275 Balance 345 - Medications Medications: Current Medications Acetaminophen (Tylenol 325mg Tab) 650 mg PO Q4 PRN PRN Reason: Fever >100.4 F Last Admin: 06/29/16 11:49 Dose: 650 mg Clotrimazole (Lotrimin 1%) 0 gm TOP BID [facility] Last Admin: 06/29/16 19:28 Dose: Not Given MEROPENEM-0.9% SODIUM CHLORIDE (Meropenem 1g/Ns 100ml Ivpb) 100 mls @ 100 mls/ hr IVPB Q12 [facility] PRN Reason: Protocol Stop: 07/06/16 10:01 Last Admin: 06/29/16 21:48 Dose: 100 mls/hr Vancomycin HCl 2 gm/ Sodium (Chloride) 500 mls @ 170 mls/hr IVPB ONCE ONE PRN Reason: Protocol Stop: 06/30/16 12:05 Sodium Chloride (Sodium Chloride 0.45%) 1,000 mls @ 80 mls/hr IV .[id number] [facility] Morphine Sulfate (Morphine) 1 mg IVP Q4H PRN PRN Reason: Pain, moderate (4-7) Last Admin: 06/29/16 22:19 Dose: 1 mg Potassium Phos/Sodium Phos (Neutra-Phos) 1 pkt PO BID [facility] Stop: 03/23/17 21:16 Last Admin: 06/29/16 21:50 Dose: 1 pkt - Labs Labs: 06/30/16 07:30 06/30/16 07:30 PT 13.6 Seconds (9.9-11.8) H 06/29/16 03:33 INR 1.26 (0.93-1.08) H 06/29/16 03:33 APTT 32.7 Seconds (23.7-30.8) H 06/29/16 03:33 Assessment and Plan - Assessment and Plan (Free Text) Plan: Assessment: Fall at home, details unknown/Right Knee Pain + trop in setting of acute on chronic kidney disease, probably not acute [place] Dementia HBP RBBB IMI on ECG, probbably old Former Smoker Renal Stones Cataracts Diminished hearing Plan: AB Check echo IVF Monitor: I/O, labs, Renal fx., cultures, sats., etc As per ID, Ortho, Neuro.,Podiatry, Dr. Castañeda Conservative Cardiac Care is anticipated
--- NOTE | 2016-06-30 10:55 | CON ---
DATE: 06/30/2016 Room 276, bed 2. An 80-year-old male complains of right knee pain. 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 He has a mild abrasion in the prepatellar region. 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 Hopefully, this will give him enough relief so he could do some therapy. In the meantime, he has a very stiff hip, mostly on the right side. I am going to order bilateral hip x-rays to see h ow this contributes to his pain in the lower extremities. I will follow the patient when the hip x-r ays are done and see how he does with the injection in the right knee. Artem Piedra DO cc: [id number] TT: 06/30/2016 10:54:34 Confirmation # [id number] Dictation # [id number] tn
[2016-06-30] MEDS: Clotrimazole 1% Cream(30 gm) TOP SCH ×2 (11:00→17:46)
[2016-06-30] MEDS: Meropenem 1g/NS 100mL IVPB 100 ML IVPB SCH ×2 (11:18→22:46)
[2016-06-30] MEDS: Potassium & Sodium Phosphate PO SCH ×2 (11:18→17:47)
[2016-06-30] MEDS: Sodium Chloride 0.45% 1,000 ML IV SCH (11:25)
--- NOTE | 2016-06-30 13:30 | CP.PCM.PN ---
<Mary Romero - Last Filed: 06/30/16 13:26> Subjective - Date & Time of Evaluation Date of Evaluation: 06/30/16 Time of Evaluation: 13:26 - Subjective Subjective: 80 yo male seen at bedside for multiple leg ulcers and fissures of feet. Patient resting comfortably in bed in NAD and AAOx3. patient denies any acute events overnight. Patient went for multiple tests this morning. Patient denies any pain in his feet. Patient denies numbness, burning or tingling in his feet. Denies n/f/v/d/c/sob. Objective - Vital Signs/Intake and Output Vital Signs (last 24 hours): Temp Pulse Resp BP Pulse Ox 100.7 F H 109 H 22 106/59 L 95 06/30/16 12:00 06/30/16 12:00 06/30/16 12:00 06/30/16 12:00 06/30/16 06:00 Intake and Output: 06/30/16 06/30/16 06:59 18:59 Intake Total 620 Output Total 275 Balance 345 - Medications Medications: Current Medications Acetaminophen (Tylenol 325mg Tab) 650 mg PO Q4 PRN PRN Reason: Fever >100.4 F Last Admin: 06/30/16 09:15 Dose: 650 mg Clotrimazole (Lotrimin 1%) 0 gm TOP BID [facility] Last Admin: 06/30/16 11:00 Dose: 1 applic MEROPENEM-0.9% SODIUM CHLORIDE (Meropenem 1g/Ns 100ml Ivpb) 100 mls @ 100 mls/ hr IVPB Q12 [facility] PRN Reason: Protocol Stop: 07/06/16 10:01 Last Admin: 06/30/16 11:18 Dose: 100 mls/hr Sodium Chloride (Sodium Chloride 0.45%) 1,000 mls @ 100 mls/hr IV .Q10H [facility] Last Admin: 06/30/16 11:25 Dose: 100 mls/hr Morphine Sulfate (Morphine) 1 mg IVP Q4H PRN PRN Reason: Pain, moderate (4-7) Last Admin: 06/29/16 22:19 Dose: 1 mg Potassium Phos/Sodium Phos (Neutra-Phos) 1 pkt PO BID [facility] Stop: 06/30/16 21:16 Last Admin: 06/30/16 11:18 Dose: 1 pkt - Labs Labs: 06/30/16 07:30 06/30/16 07:30 PT 13.6 Seconds (9.9-11.8) H 06/29/16 03:33 INR 1.26 (0.93-1.08) H 06/29/16 03:33 APTT 32.7 Seconds (23.7-30.8) H 06/29/16 03:33 - Constitutional Appears: Well, Non-toxic, No Acute Distress - Extremities Exam Additional comments: Vasc: weakly palpable pulses of right foot, 1/4 palpable pedal pulse of left foot, +1 edema to feet and legs neuro: grossly diminished derm: elongated, thickened and dystrophic nails x 10, hyperkeratotic lesions noted to feet bilaterally, no probe to bone- under fissure is necrotic tissue of dorsomedial left foot, open superficial wound noted to anterior left leg secondary to fall at home, 1.5 x 1.5 x 0.3, no acute clinical signs of infection , mild redness to right foot - Neurological Exam Neurological Exam: Alert, Awake, Oriented x3 - Psychiatric Exam Psychiatric exam: Normal Affect, Normal Mood Assessment and Plan - Assessment and Plan (Free Text) Assessment: 80 y/o male seen at bedside for multiple necrotic fissures, fungal nails and superficial ulceration to legs Plan: patient evaluated and chart reviewed discussed in detail with attending Dr. Hay labs and vitals reviewed, WBC 23.7 patient instructed to soak feet for 5 minutes, excisional debridement of calluses on left foot using a sterilr #15 blade down to level of healthy tissue excisional debridement of toenails x 10 using sterile nippers down to hygienic length applied DSD to foot and legs b/l patient tolerated procedures well with no complications continue IV abx WALKER / PVR= 0.84 Right, 0.6 left f.u wound cx instructed to apply lotrimin to legs daily continue wearing heel pads while in bed to offload pressure podiatry will continue to monitor while patient remains in house <Megan Hay - Last Filed: 07/01/16 15:07> Objective - Vital Signs/Intake and Output Vital Signs (last 24 hours): Temp Pulse Resp BP Pulse Ox 98.6 F 93 H 20 110/85 95 07/01/16 11:40 07/01/16 13:00 07/01/16 11:40 07/01/16 11:40 07/01/16 09:00 Intake and Output: 07/01/16 07/01/16 06:59 18:59 Intake Total 1680 Output Total 200 Balance 1480 - Medications Medications: Current Medications Acetaminophen (Tylenol 325mg Tab) 650 mg PO Q4 PRN PRN Reason: Fever >100.4 F Last Admin: 06/30/16 09:15 Dose: 650 mg Clotrimazole (Lotrimin 1%) 0 gm TOP BID [facility] Last Admin: 07/01/16 09:27 Dose: 2 applic MEROPENEM-0.9% SODIUM CHLORIDE (Meropenem 1g/Ns 100ml Ivpb) 100 mls @ 100 mls/ hr IVPB Q12 [facility] PRN Reason: Protocol Stop: 07/06/16 10:01 Last Admin: 07/01/16 09:36 Dose: 100 mls/hr Sodium Bicarbonate 50 meq/ (Sodium Chloride) 1,050 mls @ 125 mls/hr IV .Q8H24M [facility] Last Admin: 07/01/16 09:14 Dose: 125 mls/hr diltiaZEM IVPB 100mg in NS (Cardizem 100mg In Ns) 100 mls @ 5 mls/hr IV .Q20H PRN; Protocol; 5 MG/HR PRN Reason: TITRATE PER MD ORDER Heparin Sodium/Sodium Chloride (Heparin 59406 Units/250ml 1/2 Normal Saline) 250 mls @ 11.571 mls/hr IV .[id number] PRN; Protocol; 10 UNITS/KG/HR PRN Reason: ADJUST RATE PER PROTOCOL Metoprolol Succinate (Toprol Xl) 25 mg PO BRK [facility] Last Admin: 07/01/16 13:44 Dose: Not Given Morphine Sulfate (Morphine) 1 mg IVP Q4H PRN PRN Reason: Pain, moderate (4-7) Last Admin: 06/29/16 22:19 Dose: 1 mg - Labs Labs: 07/01/16 06:00 07/01/16 06:00 PT 13.6 Seconds (9.9-11.8) H 06/29/16 03:33 INR 1.26 (0.93-1.08) H 06/29/16 03:33 APTT 32.7 Seconds (23.7-30.8) H 06/29/16 03:33 Attending/Attestation - Attestation I have personally seen and examined this patient.: Yes I have fully participated in the care of the patient.: Yes I have reviewed all pertinent clinical information, including history, physical exam and plan: Yes
--- NOTE | 2016-06-30 14:41 | CP.PCM.PN ---
Subjective - Date & Time of Evaluation Date of Evaluation: 06/30/16 Time of Evaluation: 09:55 - Subjective Subjective: Patient developed fever this morning, still feels weak, no nausea or diarrhea, still with pain in both legs Objective - Vital Signs/Intake and Output Vital Signs (last 24 hours): Temp Pulse Resp BP Pulse Ox 100.7 F H 109 H 22 106/59 L 95 06/30/16 12:00 06/30/16 12:00 06/30/16 12:00 06/30/16 12:00 06/30/16 06:00 Intake and Output: 06/30/16 06/30/16 06:59 18:59 Intake Total 620 Output Total 275 Balance 345 - Medications Medications: Current Medications Acetaminophen (Tylenol 325mg Tab) 650 mg PO Q4 PRN PRN Reason: Fever >100.4 F Last Admin: 06/30/16 09:15 Dose: 650 mg Clotrimazole (Lotrimin 1%) 0 gm TOP BID [facility] Last Admin: 06/30/16 11:00 Dose: 1 applic MEROPENEM-0.9% SODIUM CHLORIDE (Meropenem 1g/Ns 100ml Ivpb) 100 mls @ 100 mls/ hr IVPB Q12 SARAH PRN Reason: Protocol Stop: 07/06/16 10:01 Last Admin: 06/30/16 11:18 Dose: 100 mls/hr Sodium Chloride (Sodium Chloride 0.45%) 1,000 mls @ 100 mls/hr IV .Q10H [facility] Last Admin: 06/30/16 11:25 Dose: 100 mls/hr Morphine Sulfate (Morphine) 1 mg IVP Q4H PRN PRN Reason: Pain, moderate (4-7) Last Admin: 06/29/16 22:19 Dose: 1 mg Potassium Phos/Sodium Phos (Neutra-Phos) 1 pkt PO BID SARAH Stop: 06/30/16 21:16 Last Admin: 06/30/16 11:18 Dose: 1 pkt - Labs Labs: 06/30/16 07:30 06/30/16 07:30 PT 13.6 Seconds (9.9-11.8) H 06/29/16 03:33 INR 1.26 (0.93-1.08) H 06/29/16 03:33 APTT 32.7 Seconds (23.7-30.8) H 06/29/16 03:33 - Constitutional Appears: Non-toxic, No Acute Distress - Head Exam Head Exam: NORMAL INSPECTION - ENT Exam ENT Exam: Mucous Membranes Moist - Neck Exam Neck Exam: absent: Lymphadenopathy, Meningismus - Respiratory Exam Respiratory Exam: Decreased Breath Sounds - Cardiovascular Exam Cardiovascular Exam: +S1, +S2 - GI/Abdominal Exam GI & Abdominal Exam: Soft. absent: Tenderness - Extremities Exam Additional comments: both feet with dry dressings in place Assessment and Plan - Assessment and Plan (Free Text) Plan: Assessment severe sepsis with acute on chronic renal failure due to gram positive cocci in chains bacteremia, probably secondary to both lower extremities skin and skin structure infection acute rhabdomyolysis consider acute NSTEMI HTN chronic renal failure dementia obesity with BMI 38 Plan will give another dose of IV Vancomycin (since we are unable to use Daptomycin since the CPK is very elevated) and continue Merrem (day 2) pending identification and sensitivities of the bacteria in the blood; follow up wound, urine cx; PCT is elevated but the patient has renal failure; reviewed CXR Follow up Podiatry evaluation follow up echocardiogram; will repeat blood cultures will monitor clinically
--- NOTE | 2016-06-30 15:19 | CARD ---
APPROVED REPORT EKG Measurement Heart [id number] <Conclusion> Sinus tachycardia Right bundle branch block Inferior infarct, age undetermined Abnormal ECG
--- NOTE | 2016-06-30 15:21 | RAD ---
PROCEDURE: Pelvis bilateral hips HISTORY: Pain. No history of recent/ related trauma provided COMPARISON: None TECHNIQUE: Standard protocol for this study/examination. FINDINGS: Right hip: Severe degenerative changes. Marked joint space narrowing. Proliferative changes primarily on the acetabular side of the joint. Chronic degenerative changes presumed posttraumatic. Partial collapse of the femoral head suggests a component of osteonecrosis. Left hip: Moderate -severe degenerative changes. Preserved femoral acetabular relationship. No acute findings IMPRESSION: Right hip: Presumed long-standing degenerative/posttraumatic changes. 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 No acute findings. Left hip: Less severe degenerative changes.
--- NOTE | 2016-06-30 17:38 | US ---
PROCEDURE: Lower extremity WALKER exam HISTORY: Peripheral vascular disease with pain and claudication. PHYSICIAN(S): Terrence Bedolla MD. FINDINGS: The resting WALKER's are mildly to moderately abnormal: Right, 0.84 and left, 0.60 The brachial systolic pressures are symmetric. The high thigh pressures and waveforms are relatively normal. The calf PVR waveforms do not augment. This is consistent with bilateral SFA disease, greater on the left than the right. Significant gradients are noted across both knees. This is consistent with bilateral distal SFA, popliteal, and/ trifurcation disease. The ankle PVR waveforms are moderately blunted bilaterally. This consistent with bilateral tibial disease. IMPRESSION: 1. Moderately abnormal ABIs at rest. 2. 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 3. Bilateral distal SFA, popliteal, and/ trifurcation disease.
[2016-07-01 05:12] LABS: CREATININE, RANDOM URINE 119 mg/dL (20-370)
[2016-07-01 06:40] LABS: HEMATOCRIT 39.7 % (42.0-52.0); MEAN CELL VOLUME 82.4 fL (80.0-105.0); MEAN CORPUSCULAR HEMOGLOBIN 27.8 pg (25.0-35.0); MEAN CORPUSCULAR HGB CONC 33.8 g/dl (31.0-37.0); MEAN PLATELET VOLUME 9.3 fl (7.0-11.0); RED CELL DISTRIBUTION WIDTH 14.9 % (11.5-14.5)
[2016-07-01 07:58] LABS: ALB/GLOB RATIO 0.9 (1.1-1.8); BILIRUBIN,TOTAL 0.7 mg/dL (0.2-1.3); CALCIUM 8.2 mg/dL (8.4-10.5); MAGNESIUM 2.5 mg/dL (1.7-2.2); PHOSPHOROUS 7.3 mg/dL (2.5-4.5); POTASSIUM 4.7 mmol/L (3.6-5.0); TOTAL PROTEIN 6.7 g/dL (5.8-8.3)
--- NOTE | 2016-07-01 08:57 | CARD ---
APPROVED REPORT EXAM: Two-dimensional and M-mode echocardiogram with Doppler and color Doppler. Other Information Quality : AverageRhythm : INDICATION Syncope 2D DIMENSIONS Left Atrium (2D)3.6 (1.6-4.0cm)IVSd1.2 (0.7-1.1cm) LVDd4.8 (3.9-5.9cm)PWd1.2 (0.7-1.1cm) LVDs3.1 (2.5-4.0cm)FS (%) 34.7 % LVEF (%)63.0 (>50%) M-Mode DIMENSIONS Aortic Root3.30 (2.2-3.7cm)Aortic Cusp Exc.1.70 (1.5-2.0cm) Aortic Valve AoV Peak Mkzsvqcn643.0cm/Arnulfo Peak GR.6mmHg Mitral Valve E/A ratio0.0 TDI E/Lateral E'0.0E/Medial E'0.0 Tricuspid Valve TR Peak [id number]/sRAP [id number] Peak Gr.10mmHg [id number] LEFT VENTRICLE The left ventricle is normal size. There is mild concentric left ventricular hypertrophy. The left ventricular function is normal. The left ventricular ejection fraction is within the normal range. There is normal LV segmental wall motion. RIGHT VENTRICLE The right ventricle is normal size. ATRIA The left atrium size is normal. The right atrium size is normal. The interatrial septum is intact with no evidence for an atrial septal defect. AORTIC VALVE The aortic valve is mildly to moderately calcified. MITRAL VALVE The mitral valve is mildly thickened but opens well. Mitral annular calcification is mild to moderate. Mitral regurgitation is trace. TRICUSPID VALVE The tricuspid valve is normal in structure. There is mild tricuspid regurgitation. PULMONIC VALVE The pulmonic valve is not well visualized. GREAT VESSELS The aortic root is normal in size. PERICARDIAL EFFUSION There is no pericardial effusion. <Conclusion> The left ventricle is normal size. There is mild concentric left ventricular hypertrophy. The left ventricular function is normal.
[2016-07-01] MEDS: Clotrimazole 1% Cream(30 gm) TOP SCH ×2 (09:27→17:56)
--- NOTE | 2016-07-01 09:31 | PN ---
DATE: 07/01/2016 SUBJECTIVE: The patient has no complaints of any chest pain, no shortness of breath, no headaches. He had a right knee injection yesterday given by Dr. Piedra from orthopedics. PHYSICAL EXAMINATION: VITAL SIGNS: Temperature is 97.6, pulse is 72, blood pressure is 120/72, respirations 20. GENERAL: The patient comfortable, in no acute distress. HEENT: Anicteric sclerae. Moist mucosa. NECK: No JVD or adenopathy. CARDIAC: S1/S2. No murmurs. No rubs. Regular. RESPIRATORY: Clear to auscultation bilaterally. No wheezes, rales, or rhonchi. Good air entry. ABDOMEN: Bowel sounds are positive, soft, nontender, and nondistended. EXTREMITIES: No edema. Has 1+ pulses. LABORATORIES: White count of 23.7, hemoglobin is 14.1. Creatinine is . Pelvis, bilateral hips shows right hip is longstanding degenerative changes, component of avasc ular necrosis suspected right femoral head, no acute findings of left hip except for severe degenerat surendra changes. Echo is pending. ASSESSMENT: 1. Delirium, improving. 2. Acute kidney injury versus chronic kidney disease. 3. Sepsis. 4. Hypophosphatemia. 5. Right knee pain, secondary to degenerative joint disease. 6. Elevated troponin. 7. Rhabdomyolysis. 8. Possible peripheral arterial disease. 9. Obesity with a body mass index of 37. 10. Proteinuria. PLAN: The patient has 1 blood culture that was positive for gram-positive cocci. The patient is cur rently on IV fluids with normal saline. He is on antibiotics. He is on morphine for pain. He is receiving Xanax as needed. He is on a heart healthy diet. He is being followed by Dr. Quang gutierrez. The patient will need a renal ultrasound. I am not sure of the cause of his elevated creatinin e. He may have chronic kidney disease, but he does have proteinuria according to his protein/creatin ine ratio. We will get renal ultrasound and also serology. Kolby Last MD cc: [id number] TT: 07/01/2016 09:30:25 Confirmation # [id number] Dictation # [id number]
[2016-07-01] MEDS: Meropenem 1g/NS 100mL IVPB 100 ML IVPB SCH ×2 (09:36→23:15)
[2016-07-01] MEDS ORDERED: Vancomycin 1gm in NS 250ml 250 ML IVPB STA (12:56)
--- NOTE | 2016-07-01 13:00 | CP.PCM.PN ---
Subjective - Date & Time of Evaluation Date of Evaluation: 07/01/16 Time of Evaluation: 08:45 - Subjective Subjective: Patient is comfortable in bed, still have low grade fevers overnight but this morning he is afebrile. No diarrhea, no chest pain. Objective - Vital Signs/Intake and Output Vital Signs (last 24 hours): Temp Pulse Resp BP Pulse Ox 97.9 F 72 20 129/81 96 07/01/16 06:00 07/01/16 06:00 07/01/16 06:00 07/01/16 06:00 07/01/16 06:00 Intake and Output: 07/01/16 07/01/16 06:59 18:59 Intake Total 1680 Output Total 200 Balance 1480 - Medications Medications: Current Medications Acetaminophen (Tylenol 325mg Tab) 650 mg PO Q4 PRN PRN Reason: Fever >100.4 F Last Admin: 06/30/16 09:15 Dose: 650 mg Clotrimazole (Lotrimin 1%) 0 gm TOP BID [facility] Last Admin: 06/30/16 17:46 Dose: 1 applic MEROPENEM-0.9% SODIUM CHLORIDE (Meropenem 1g/Ns 100ml Ivpb) 100 mls @ 100 mls/ hr IVPB Q12 SARAH PRN Reason: Protocol Stop: 07/06/16 10:01 Last Admin: 06/30/16 22:46 Dose: 100 mls/hr Morphine Sulfate (Morphine) 1 mg IVP Q4H PRN PRN Reason: Pain, moderate (4-7) Last Admin: 06/29/16 22:19 Dose: 1 mg - Labs Labs: 07/01/16 06:00 07/01/16 06:00 PT 13.6 Seconds (9.9-11.8) H 06/29/16 03:33 INR 1.26 (0.93-1.08) H 06/29/16 03:33 APTT 32.7 Seconds (23.7-30.8) H 06/29/16 03:33 - Constitutional Appears: Non-toxic, No Acute Distress - Head Exam Head Exam: NORMAL INSPECTION - ENT Exam ENT Exam: Mucous Membranes Moist - Neck Exam Neck Exam: absent: Lymphadenopathy, Meningismus - Respiratory Exam Respiratory Exam: Decreased Breath Sounds - Cardiovascular Exam Cardiovascular Exam: +S1, +S2 - GI/Abdominal Exam GI & Abdominal Exam: Soft. absent: Tenderness - Extremities Exam Additional comments: both lower extremities with dry dressings in place Assessment and Plan - Assessment and Plan (Free Text) Plan: Assessment severe sepsis with acute on chronic renal failure due to gram positive cocci in chains bacteremia, probably secondary to bilateral lower extremities skin and skin structure infection acute rhabdomyolysis consider acute NSTEMI HTN chronic renal failure dementia obesity with BMI 38 Plan will give another dose of IV Vancomycin (since we are unable to use Daptomycin since the CPK is very elevated at ~44,000) and get Vanco level in the morning; will also continue Merrem (day 3) pending identification and sensitivities of the bacteria in the blood and in the wound cx; PCT is elevated but the patient has renal failure; reviewed CXR reviewed Podiatry evaluation follow up echocardiogram results and repeat blood cultures which were taken yesterday will continue to monitor clinically Discussed with Dr. Barriga
[2016-07-01] MEDS ORDERED: Metoprolol Succinate 25 mg XL Tab PO SCH (13:15)
[2016-07-01] MEDS ORDERED: Levalbuterol 0.63 MG/3 ML Inhal Soln UD IH STA (14:02)
[2016-07-01] MEDS ORDERED: diltiaZEM IVPB 100mg in NS 100 ML IV PRN (14:13)
[2016-07-01 14:15] LABS: FREE T4 1.1 ng/dL (0.78-2.19)
[2016-07-01] MEDS ORDERED: Heparin25000 units/250ml 1/2NS 250 ML IV PRN (14:17)
--- NOTE | 2016-07-01 14:27 | CP.PCM.PN ---
Subjective - Date & Time of Evaluation Date of Evaluation: 07/01/16 Time of Evaluation: 14:21 - Subjective Subjective: called by nurse pt has rythem change of a-fb, pt with nstemi rhabdomyalysis. sepsis . has a-fib with rate of 95 -104. pt denies complaints. Objective - Vital Signs/Intake and Output Vital Signs (last 24 hours): Temp Pulse Resp BP Pulse Ox 98.6 F 93 H 20 110/85 95 07/01/16 11:40 07/01/16 13:00 07/01/16 11:40 07/01/16 11:40 07/01/16 09:00 Intake and Output: 07/01/16 07/01/16 06:59 18:59 Intake Total 1680 Output Total 200 Balance 1480 - Medications Medications: Current Medications Acetaminophen (Tylenol 325mg Tab) 650 mg PO Q4 PRN PRN Reason: Fever >100.4 F Last Admin: 06/30/16 09:15 Dose: 650 mg Clotrimazole (Lotrimin 1%) 0 gm TOP BID [facility] Last Admin: 07/01/16 09:27 Dose: 2 applic Heparin Sodium (Porcine) (Heparin) 5,000 units IVP STAT STA PRN Reason: Protocol Stop: 07/01/16 14:15 MEROPENEM-0.9% SODIUM CHLORIDE (Meropenem 1g/Ns 100ml Ivpb) 100 mls @ 100 mls/ hr IVPB Q12 SARAH PRN Reason: Protocol Stop: 07/06/16 10:01 Last Admin: 07/01/16 09:36 Dose: 100 mls/hr Sodium Bicarbonate 50 meq/ (Sodium Chloride) 1,050 mls @ 125 mls/hr IV .Q8H24M [facility] Last Admin: 07/01/16 09:14 Dose: 125 mls/hr Vancomycin HCl (Vancomycin 1gm) 250 mls @ 167 mls/hr IVPB STAT STA PRN Reason: Protocol Stop: 07/01/16 14:25 Last Admin: 07/01/16 14:05 Dose: 167 mls/hr diltiaZEM IVPB 100mg in NS (Cardizem 100mg In Ns) 100 mls @ 5 mls/hr IV .Q20H PRN; Protocol; 5 MG/HR PRN Reason: TITRATE PER MD ORDER Heparin Sodium/Sodium Chloride (Heparin 48559 Units/250ml 1/2 Normal Saline) 250 mls @ 11.571 mls/hr IV .X85T07S PRN; Protocol; 10 UNITS/KG/HR PRN Reason: ADJUST RATE PER PROTOCOL Metoprolol Succinate (Toprol Xl) 25 mg PO BRK [facility]AH Last Admin: 07/01/16 13:44 Dose: Not Given Morphine Sulfate (Morphine) 1 mg IVP Q4H PRN PRN Reason: Pain, moderate (4-7) Last Admin: 06/29/16 22:19 Dose: 1 mg - Labs Labs: 07/01/16 06:00 07/01/16 06:00 PT 13.6 Seconds (9.9-11.8) H 06/29/16 03:33 INR 1.26 (0.93-1.08) H 06/29/16 03:33 APTT 32.7 Seconds (23.7-30.8) H 06/29/16 03:33 - Constitutional Appears: No Acute Distress - Eye Exam Eye Exam: PERRL - ENT Exam ENT Exam: Mucous Membranes Moist - Respiratory Exam Respiratory Exam: Decreased Breath Sounds, Wheezes Additional comments: pt has decreased breath sound abd wheezez in the left lower lung region. - Cardiovascular Exam Cardiovascular Exam: Tachycardia, Irregular Rhythm - GI/Abdominal Exam GI & Abdominal Exam: Soft - Extremities Exam Additional comments: generalized weakness. - Neurological Exam Neurological Exam: Alert, Awake, Oriented x3 - Skin Skin Exam: Dry, Warm Assessment and Plan - Assessment and Plan (Free Text) Assessment: a-fib with rapid vent rate. NSTEMI. RENAL FAILURE rhabdomyalysis. Plan: xopenex t/m x1 chest x-ray. cardiazem garry and hang goodrich. pt discussed with dr rose.
[2016-07-01 14:29] LABS: THYROID STIMULATING HORMONE 3.61 mIU/mL (0.46-4.68)
--- NOTE | 2016-07-01 16:00 | US ---
PROCEDURE: Ultrasound of the Kidneys HISTORY: ARF COMPARISON: None available. TECHNIQUE: Sonogram of the kidneys. FINDINGS: RIGHT KIDNEY: Measures: 13.7 cm. Normal in size, contour and echogenicity. No stone, solid mass lesion or hydronephrosis visualized. LEFT KIDNEY: Measures: 10.9 cm. Normal in size, contour and echogenicity. No stone, solid mass lesion or hydronephrosis visualized. OTHER FINDINGS: None. IMPRESSION: Unremarkable renal sonogram.
[2016-07-01] MEDS ORDERED: Silver Sulfadiazine 1% Cream (20 gm) TOP SCH (16:45)
[2016-07-01] MEDS ORDERED: Albuterol-Ipratrop 3 mg / 0.5 (3 ml) UD IH STA (17:26)
--- NOTE | 2016-07-01 18:32 | CARD ---
APPROVED REPORT EKG Measurement Heart [id number] <Conclusion> Atrial fibrillation Right bundle branch block Inferior infarct, age undetermined Abnormal ECG
--- NOTE | 2016-07-01 18:32 | CARD ---
APPROVED REPORT EKG Measurement Heart [id number] <Conclusion> Atrial fibrillation Right bundle branch block Abnormal ECG
[2016-07-01] MEDS: Sodium Chloride 0.45% 1,000 ML IV SCH (20:24)
[2016-07-02 07:08] LABS: HEMATOCRIT 38.5 % (42.0-52.0); MEAN CELL VOLUME 81.1 fL (80.0-105.0); MEAN CORPUSCULAR HEMOGLOBIN 27.6 pg (25.0-35.0); MEAN PLATELET VOLUME 9.5 fl (7.0-11.0); RED CELL DISTRIBUTION WIDTH 14.7 % (11.5-14.5); WHITE BLOOD COUNT 12.9 10^3/ul (4.5-11.0)
[2016-07-02 07:10] LABS: ALB/GLOB RATIO 0.9 (1.1-1.8); BILIRUBIN,TOTAL 0.8 mg/dL (0.2-1.3); CALCIUM 8.2 mg/dL (8.4-10.5); POTASSIUM 4.1 mmol/L (3.6-5.0); TOTAL PROTEIN 6.2 g/dL (5.8-8.3); URIC ACID 8.3 mg/dL (3.5-8.5)
[2016-07-02 07:17] LABS: INR 1.12 (0.93-1.08)
[2016-07-02] MEDS: Silver Sulfadiazine 1% Cream (20 gm) TOP SCH (08:19)
--- NOTE | 2016-07-02 09:16 | RAD ---
HISTORY: r/o infiltrates COMPARISON: 06/29/2016. FINDINGS: LUNGS: The lungs are clear. PLEURA: No significant pleural effusion identified, no pneumothorax apparent. CARDIOVASCULAR: Stable. Atherosclerotic aortic arch calcifications are present. OSSEOUS STRUCTURES: No significant abnormalities. VISUALIZED UPPER ABDOMEN: Normal. OTHER FINDINGS: None. IMPRESSION: No active pulmonary disease.
--- NOTE | 2016-07-02 10:04 | PN ---
DATE: 07/02/2016 This is an 80-year-old male seen at bedside for bilateral multiple lower leg ulcerations and painful fissures on both feet. The patient is complaining of pain in his right knee and denies any pain in b oth feet or lower legs. VITAL SIGNS: Reveal temperature of 98.1, pulse rate of 63, blood pressure 138/63, respiratory rate o f 20. LABORATORY DATA: Reveal a white count of 12.9 down from 19 yesterday. Hemoglobin of 13.1, hematocri t of 38.5, platelet count of 133. His ESR 15. Left foot culture reveals Staphylococcus aureus growt h. Foot x-rays reveal no radiographic evidence of osteomyelitis. Arterial Dopplers revealed PVR wav es that are moderately blunted, consistent with bilateral tibial disease. OBJECTIVE: Nonpalpable posterior tibial pulse bilaterally. Weakly palpable dorsalis pedis pulse not ed bilaterally, +1 nonpitting lower extremity edema noted bilaterally. The patient has superficial n on-stageable wounds which are at the anterior aspect of his left lower leg, each measure approximatel y 1.2 cm x 1.2 cm x 0.3 cm. The bases are granular with no signs of purulence and no clinical signs of abscess formation. There are unstageable superficial wounds on the right lower leg, measure less than 0.5 x 0.5 x 0.2 cm. They remain granular with minimal serous drainage and no clinical signs of abscess formation. ASSESSMENT: Non-stageable lateral lower leg ulcerations with accompanying localized cellulitis. PLAN: Both legs were cleansed with normal sterile saline. We will apply Silvadene cream to both wou nds with Optifoam dressing. Recommend orthopedic consultation for right knee pain. The patient will be seen and followed daily. Luis Carlos Almendarez DPM cc: [id number] TT: 07/02/2016 10:02:52 Confirmation # [id number] Dictation # [id number] jn
--- NOTE | 2016-07-02 10:07 | PN ---
DATE: 07/02/2016 The patient is in bed in no acute distress, nontoxic. PHYSICAL EXAMINATION: VITAL SIGNS: Temperature is 97, blood pressure is 138/60, respiratory rate of 20. HEENT: Unremarkable. NECK: Supple. LUNGS: Have decreased breath sounds. HEART: Normal S1, S2. ABDOMEN: Soft, nontender. LABORATORY DATA: Reveals a white count of 12,900, hemoglobin of 13, platelets of 133. Coagulation i s noted. Chemistries reveal a BUN of 61, creatinine of 1.7. Procalcitonin is 31. Urinalysis is not ed. Vancomycin trough is 15.7 yesterday. HIV is nonreactive. Microbiology reveals the patient has a group G strep in the blood and left foot the patient has a Staphylococcus aureus and foot was exami cee with Dr. Almendarez. The Staphylococcus aureus is pansensitive. ASSESSMENT AND PLAN: This is an 80-year-old male with past medical history significant for dementia, chronic renal failure, obesity, BMI of 38, admitted with severe sepsis with acute kidney injury on t op of chronic renal failure with group G strep bacteremia and Staph aureus lower extremity cellulitis . Will use ceftriaxone 2 grams a day, discontinue the meropenem. Although lower extremity has mild erythema, I am not convinced that this is the etiology of the bacteremia. Repeat blood cultures from the are negative, must rule out underlying osteomyelitis. The patient's sed rate is 15 with a C-reactive protein of greater than 15. Should have an MRI of the lower extremities if possible and r epeat cultures are negative. The patient had an echo on the , read by Dr. Maverick Olmedo, mitral v alve thickened. There is no mention of vegetation by Dr. Maverick Olmedo. We will continue with the an tibiotic ceftriaxone 2 grams daily. The patient's renal function appears to be improving. Wally Wylie MD cc: [id number] TT: 07/02/2016 10:06:38 Confirmation # [id number] Dictation # [id number] jn
--- NOTE | 2016-07-02 10:12 | PN ---
DATE: 07/02/2016 SUBJECTIVE: The patient is seen lying in bed on telemetry. He remains uncomfortable. He finds diff iculty moving his right leg because of knee pain. He has had paroxysmal episodes of atrial fibrillat ion with a heart rate into the 130-range. He is currently in sinus rhythm. CURRENT MEDICATIONS: Include DuoNeb inhaler, meropenem, morphine p.r.n., IV fluids with sodium bicar bonate. Metoprolol has been placed on hold apparently. OBJECTIVE: GENERAL: He is an elderly man who appears somewhat uncomfortable in bed. VITAL SIGNS: His blood pressure is 138/60 with a pulse of 66. He is in sinus rhythm. Respirations are 16. He is afebrile. HEENT: No JVD. CHEST: Bilateral scattered rhonchi. HEART: PMI displaced laterally with a systolic murmur at the left sternal border. ABDOMEN: Soft, nontender, normoactive bowel sounds. EXTREMITIES: Multiple excoriations on both legs and feet are present, and abrasion on his right knee persists. One plus edema is noted. DIAGNOSTIC DATA: White count 12.9, hemoglobin and hematocrit 13.1 and 38.5 with a platelet count to 133,000. Potassium 4.1. BUN and creatinine are 61 and 1.7, down from 70 and 2.9. AST and ALT - 323 and 177. CK 5352, down from 44,000. Chest x-ray reveals mildly increased cardiac silhouette with clear lung dietrich. Echocardiogram reveals normal LV size, mild concentric LVH and normal LV systolic function. IMPRESSION: 1. Status post fall. 2. Resolving acute renal failure likely secondary to rhabdomyolysis. 3. Recent mildly elevated troponin likely due to decreased renal clearance. 4. History of tobacco abuse. 5. Possible coronary artery disease, clinically stable at present. 6. Paroxysmal atrial fibrillation, currently in sinus rhythm. RECOMMENDATIONS: At the present time, resumption of beta-randi therapy would appear reasonable for heart rate control in the event of recurrence of atrial fibrillation. Given his current status and risk of falls, I would withhold full anticoagulation for now unless he develops larger evidence of i ncreased burden of atrial fibrillation. At the present time, I believe his risk of falls exceeds the benefit of anticoagulation. Although not totally efficacious, one aspirin can be added to his regim en for now. We will continue to follow along and make further recommendations as needed. Ashish Willis MD cc: [id number] TT: 07/02/2016 10:12:31 Confirmation # [id number] Dictation # [id number] jn
[2016-07-02 10:34] LABS: VITAMIN D 25 OH TOTAL 42.5 NG/ML (30.0-100.0)
--- NOTE | 2016-07-02 12:11 | PN ---
DATE: 07/02/2016 SUBJECTIVE: The patient is an 80-year-old white male who came to Emergency Room on 06/29, after he f ell at home. The patient could not recall about that. According to the patient's family, he was fo und to be confused and disoriented. He also has history of hypertension, mild dementia, morbid obesi ty. He also has bilateral ulcers and being treated for that. PHYSICAL EXAMINATION: GENERAL: He is sleepy, but arousable, does not seem to be in distress. VITAL SIGNS: He is afebrile, pulse 63, respirations 20, blood pressure 160/70. LUNGS: Bilateral fair airflow, no rhonchi or crackle. HEART: S1, S2 audible. ABDOMEN: Soft, obese, nontender, no rebound, no guarding. NEUROLOGIC: He is awake and alert, somewhat confused, moves all extremities. EXTREMITIES: Bilateral legs, he has cellulitis and bilateral leg ulcers. LABORATORY EXAMINATION: WBC is 12.9, that is nicely coming down. His admission WBC was 24,000. Hem oglobin 13, hematocrit 38, platelets 133. PT 12.1, INR 1.12. Chemistry: Sodium 137, potassium 4.1, chloride 103, CO2 22, BUN 61, creatinine 1.7, blood sugar 135. His iron is 11. His AST 323, that i s coming down, ALT is 177. Troponin was positive on 06/30/2016, and his CPK is also nicely coming do wn. His foot wound was positive for Staphylococcus aureus and one blood culture positive for group G Streptococcus. ASSESSMENT: 1. Status post fall with generalized weakness. 2. Improving renal failure. 3. Improving leukocytosis. 4. Paroxysmal atrial fibrillation, but has been in sinus rhythm lately. 5. Mild dementia. 6. Status post electrolyte imbalance. 7. Right knee degenerative disk disease. 8. Resolving rhabdomyolysis. PLAN: Currently, the patient is on IV fluid. He is on aspirin. He is getting nebulizer treatment a s needed. He is on beta randi. He is also receiving Rocephin 2 grams q. 24 hour. He is being car ed for by Dr. Almendarez, a district court bailiff, for his leg wounds. His is being discontinued today. We wi ll follow up his electrolytes, CBC, and CMP in a.m., and also request for Physical Therapy evaluation . Angela Wilson MD cc: [phone] TT: 07/02/2016 12:11:29 Confirmation # [id number] Dictation # [id number]
--- NOTE | 2016-07-02 15:33 | CON ---
DATE: 07/02/2016 HISTORY OF PRESENT ILLNESS: The patient is an 80-year-old male admitted to the telemetry unit on after sustaining a fall at home. The patient reports slipping in his bathroom and being unab le to get up. Apparently, the patient was lying on the floor for an unspecified amount of time befor e being placed on a stretcher by the fire department. In the Emergency Room, he was found to be in acute rhabdomyolysis, and has also been empirically carolyne earl for presumed sepsis of unclear etiology. The patient received IV hydration, urine was alkalinize d with bicarb, and kidney function has improved. The patient was seen in consultation by cardiology. The patient has had intermittent episodes of rap id atrial fibrillation, and it was felt that anticoagulation has been contraindicated due to increase d risk of falls. The patient has been seen in consultation by Dr. Artem Piedra for orthopedic surgery. The pat iealex has sustained no acute fracture, but is unable to ambulate or move his right leg due to pain inv olving the right knee. Dr. Piedra has recommended an MRI of the lower extremities to evaluate this problem. The patient is essentially bedbound at the present time. He is also being treated for chronic venous stasis ulcers of the lower extremities by Dr. Hay. He denies any chest pain or s hortness of breath at the present time. There is no nausea, no vomiting, no melena, no bright red bl ood per rectum. PAST MEDICAL HISTORY: Hypertension, possible chronic kidney disease, dementia, and hearing impairmen t. The patient has no significant past surgical history. He has no known drug allergies. CURRENT MEDICATIONS: Include DuoNeb q. 4 hours, metoprolol 25 mg twice a daily, Rocephin 1 g IV q. 2 4 hours. The patient was on vancomycin, which has been discontinued. The patient had a trough level of 15.7, which is high. The patient is on aspirin 325 mg per day, and is currently receiving half n ormal saline with 1 amp of sodium bicarb at 125 mL per hour. The patient has a history of tobacco use, but quit 10 years ago. He has no history of alcohol use. He presently lives with his . He was previously independent with ADLs. REVIEW OF SYSTEMS: Essentially as above. On physical examination the patient is a well-developed, obese male lying in bed in no acute distress . VITAL SIGNS: Blood pressure 172/57, pulse 101, temperature 98.2, respiratory rate 19. HEAD: Normocephalic, atraumatic. Pupils equal, round, reactive. Extraocular movements intact. The re is some mild sensorineural hearing loss. NECK: Supple, with no thyromegaly, no adenopathy. HEART: Regular rate and rhythm. Occasional ectopic. No murmurs. LUNGS: Clear. ABDOMEN: Soft, obese, nontender. Bowel sounds are normoactive. EXTREMITIES: Without cyanosis or clubbing. There is trace to 1+ bipedal edema. NEUROLOGIC: The patient is awake and responsive to verbal commands. There are some mild deficits in orientation and short-term memory. The patient has some weakness of the right lower extremity which may be secondary to pain. SKIN: There are chronic degenerative skin changes of the lower extremities bilaterally with chronic venous stasis ulcers, to which dressings have been applied, and are intact. LABORATORY DATA: WBC is 12.9, hemoglobin 13.1, hematocrit 38.5. Sodium 137, potassium 4.1, chloride 103, CO2 of 22, BUN 61, creatinine 1.7, glucose 135. CPK is 5352, troponin 0.18. Chest x-ray from 07/01 shows no active disease. IMPRESSION: 1. Acute rhabdomyolysis status post fall, improving. 2. Acute renal failure superimposed on probable chronic kidney disease secondary to #1. 3. Chronic venous stasis ulcers of the lower extremities with possible cellulitis. The patient is cu rrently being empirically treated for sepsis. 4. Hypertension. 5. Paroxysmal atrial fibrillation with intermittent episodes of rapid ventricular rate. 6. Possible coronary artery disease. 7. Dementia with possible superimposed delirium secondary to underlying metabolic problem. 8. Immobility secondary to right leg weakness of uncertain etiology, and obesity. PLAN: The patient, at the present time, has needs for complex medical care, and at the present time, I feel is not stable for transfer to a nursing home facility. Would consider starting anticoagul ation as this patient is currently admitted immobility and at very low risk for falls. Would possib ly start Lovenox 40 mg subQ daily. Continue orthopedic workup by Dr. Piedra. Continue cardiol ogy followup. Continue infectious disease followup, and monitor renal function, and continue IV hydr ation for rhabdomyolysis. Thank you for this consultation. Leonid Calderón JD, MD cc: [id number] TT: 07/02/2016 15:33:14 Confirmation # [id number] Dictation # [id number] jn
--- NOTE | 2016-07-02 15:39 | PN ---
DATE: 07/02/2016 CHIEF COMPLAINT: Follow up for confusion. SUBJECTIVE: The patient seen and examined at bedside. He was found to be confused and disoriented w hich has slowly improved since he has been having improvement in renal failure and improvement in le ukocytosis. He had paroxysmal AFib, but has been in sinus rhythm. He is status post electrolyte imba lucia which is being currently managed. He had no acute events overnight. He was found to have bilat eral ulcers which are being treated. His foot wound was positive for Staph aureus and one blood cult ure was positive for group B Streptococcus for which he is on antibiotics per ID. PAST MEDICAL HISTORY: History of dementia, history of right knee degenerative disk disease, history of hypertension, morbid obesity. REVIEW OF SYSTEMS: A 14-point review of systems is negative except for the HPI. MEDICATIONS: Reviewed in nurse reconciliation sheet. ALLERGIES: No known drug allergies. SOCIAL HISTORY: No illicit drug use, smoking or EtOH abuse at this time. PHYSICAL EXAMINATION: VITAL SIGNS: Temperature 98.2, pulse rate of 70, blood pressure 161/70, respiratory rate 20, oxygen 94% on room air. GENERAL: The patient is sitting up in bed in no acute distress. HEENT: Atraumatic, normocephalic. PERRLA. Extraocular muscles intact. NECK: Supple, no JVD, no adenopathy noted. LUNGS: Clear to auscultation. No adventitious sounds. HEART: S1, S2, normal rate and rhythm. No murmurs, rubs, or gallops. ABDOMEN: Soft, nontender, nondistended. Bowel sounds are present. He is obese. EXTREMITIES: He has bilateral leg cellulitis and bilateral leg ulcers. NEUROLOGIC: The patient is alert, oriented to person and place, not to month and year. Poor attenti on span, slow thought process. Cranial nerves II through XII are intact. MOTOR: Moves all extremities equally. No pronator is seen. SENSORY: Decreased light touch and pinprick up to calves bilaterally, decreased vibration of the toe s. DEEP TENDON REFLEXES: 1+ throughout. COORDINATION: Lpydfa-np-biux intact. GAIT: Deferred for now. LABORATORIES: Sodium is 131, potassium 4.1, chloride of 103, carbon dioxide 22, BUN of 61, creatinin e 1.7, random glucose 135. His hemoglobin A1c is 6.6. He has iron deficiency anemia at this time. ASSESSMENT AND PLAN: This is an 80-year-old man, morbidly obese with mild dementia, hypertension who came in for generalized weakness and had bilateral lower extremity cellulitis. The patient was admi tted for severe sepsis, acute kidney injury on top of chronic renal failure with group B strep bacter emia and Staph aureus lower extremity cellulitis, for which he is on antibiotics. I was called in for confusion and generalized weakness. His confusion and generalized weakness are transient, which is likely secondary to toxic metabolic encephalopathy superimposed on underlying medical problems. At t his time, recommend: 1. Continue with podiatry management for his underlying bilateral lower extremity cellulitis in maria elena tion to his ceftriaxone antibiotics per ID. 2. Aspirin 325 p.o. daily for stroke prevention. 3. Keep his blood pressure between 120 to 130 mmHg. He is on Lopressor 25 p.o. b.i.d. 4. Will monitor his electrolytes accordingly. 5. Will likely need some physical therapy evaluation and subacute rehab eventually. No further neurological workup needed at this time. Avoid nighttime interruptions and make frequent orientations throughout the day and will sign off. Charles Conroy MD cc: [phone] TT: 07/02/2016 15:39:21 Confirmation # [id number] Dictation # [id number] an
[2016-07-02] MEDS: Clotrimazole 1% Cream(30 gm) TOP SCH (17:36)
[2016-07-02] MEDS: Morphine 2 mg/ml ISec IVP PRN (19:46)
--- NOTE | 2016-07-02 21:01 | CP.PCM.PN ---
Subjective - Date & Time of Evaluation Date of Evaluation: 07/02/16 Time of Evaluation: 20:53 - Subjective Subjective: Patient was seen at bedside because nurse Sarah told that patient is restless , trying to get out of bed, is owning. Patient is screaming occasionally,is confused, states that he is in his house on [address], this is June, it's a Monday or Monday. Denies pains, sob, nausea,sweating. Medical record was reviewed. This 80 year old white male after a fall with acute rhabdomyolysis,ARF,sepsis. Has PMH of HTN,Dementia, obesity, hearing impairment, OA,CKD. Objective - Vital Signs/Intake and Output Vital Signs (last 24 hours): Temp Pulse Resp BP Pulse Ox 98.6 F 80 18 175/69 H 100 07/02/16 20:39 07/02/16 20:39 07/02/16 20:39 07/02/16 17:36 07/02/16 20:39 Intake and Output: Pulse ox 94 % on 2L/min. - Medications Medications: Current Medications Acetaminophen (Tylenol 325mg Tab) 650 mg PO Q4 PRN PRN Reason: Fever >100.4 F Last Admin: 06/30/16 09:15 Dose: 650 mg Albuterol/Ipratropium (Duoneb 3 Mg/0.5 Mg (3 Ml) Ud) 3 ml IH [id number] PRN PRN Reason: Shortness of Breath Aspirin (Aspirin) 325 mg PO DAILY [facility] Last Admin: 07/02/16 10:55 Dose: 325 mg Clotrimazole (Lotrimin 1%) 0 gm TOP BID [facility] Last Admin: 07/02/16 17:36 Dose: 2 applic Sodium Bicarbonate 50 meq/ (Sodium Chloride) 1,050 mls @ 125 mls/hr IV .Q8H24M [facility] Last Admin: 07/02/16 12:14 Dose: 125 mls/hr Ceftriaxone Sodium (Rocephin 2 Gm Ivpb) 100 mls @ 100 mls/hr IVPB DAILY [facility] PRN Reason: Protocol Stop: 07/16/16 10:01 Last Admin: 07/02/16 10:55 Dose: 100 mls/hr Metoprolol Tartrate (Lopressor) 25 mg PO BID [facility] Last Admin: 07/02/16 17:36 Dose: 25 mg Morphine Sulfate (Morphine) 1 mg IVP Q4H PRN PRN Reason: Pain, moderate (4-7) Last Admin: 07/02/16 19:46 Dose: 1 mg Silver Sulfadiazine (Silvadene 1% 20 Gm) 0 ea TOP DAILY [facility] Last Admin: 07/02/16 08:19 Dose: 2 applic - Labs Labs: 07/02/16 06:15 07/02/16 14:50 PT 12.1 Seconds (9.9-11.8) H 07/02/16 06:15 INR 1.12 (0.93-1.08) H 07/02/16 06:15 APTT 32.7 Seconds (23.7-30.8) H 06/29/16 03:33 - Constitutional Appears: Well, No Acute Distress - Head Exam Head Exam: ATRAUMATIC, NORMAL INSPECTION, NORMOCEPHALIC - Eye Exam Eye Exam: Normal appearance - ENT Exam ENT Exam: Normal External Ear Exam - Neck Exam Neck Exam: Normal Inspection - Respiratory Exam Respiratory Exam: NORMAL BREATHING PATTERN - Cardiovascular Exam Cardiovascular Exam: REGULAR RHYTHM. absent: JVD - Rectal Exam Rectal Exam: Deferred - Extremities Exam Extremities Exam: Normal Inspection - Back Exam Back Exam: NORMAL INSPECTION - Neurological Exam Neurological Exam: Altered - Psychiatric Exam Psychiatric exam: Agitated - Skin Skin Exam: Normal Color Assessment and Plan - Assessment and Plan (Free Text) Assessment: A/P:Agitation. Confusion. Restlessness. Sundowning. S/P fall. Acute rhabdomyolysis. Sepsis. CKD. HTN. Dementia. Ativan 1 mg IV now. TRIPP vest restraint.
[2016-07-03] MEDS: Morphine 2 mg/ml ISec IVP PRN (02:00)
[2016-07-03] MEDS: Albuterol-Ipratrop 3 mg / 0.5 (3 ml) UD IH PRN ×2 (05:05→21:16)
[2016-07-03 06:22] LABS: TOTAL PROTEIN, SERUM 5.3 g/dL (6.1-8.1)
[2016-07-03 07:01] LABS: HEMATOCRIT 39.1 % (42.0-52.0); MEAN CELL VOLUME 82.1 fL (80.0-105.0); MEAN CORPUSCULAR HEMOGLOBIN 27.5 pg (25.0-35.0); MEAN CORPUSCULAR HGB CONC 33.5 g/dl (31.0-37.0); MEAN PLATELET VOLUME 9.8 fl (7.0-11.0); PLATELET COUNT 144 10^3/uL (120.0-450.0); RED CELL DISTRIBUTION WIDTH 14.5 % (11.5-14.5); WHITE BLOOD COUNT 14.3 10^3/ul (4.5-11.0)
[2016-07-03 07:12] LABS: ADD MANUAL DIFF? YES
[2016-07-03 07:18] LABS: ALB/GLOB RATIO 0.9 (1.1-1.8); BILIRUBIN,TOTAL 0.8 mg/dL (0.2-1.3); CALCIUM 8.3 mg/dL (8.4-10.5); MAGNESIUM 2.1 mg/dL (1.7-2.2); POTASSIUM 4.1 mmol/L (3.6-5.0); TOTAL PROTEIN 6.1 g/dL (5.8-8.3)
[2016-07-03 08:26] LABS: EOSINOPHIL 1 % (0.0-3.0); NEUTROPHIL 90 % (50.0-70.0)
--- NOTE | 2016-07-03 09:51 | PN ---
DATE: 07/03/2016 The patient is in bed in no acute distress. PHYSICAL EXAMINATION: GENERAL: The patient apparently had periods of more confusion last night. He is on restraints. VITAL SIGNS: Temperature of 98. Blood pressure is 145/91, respiratory rate of 22, heart rate of 112 . HEENT: Unremarkable. NECK: Supple. LUNGS: Have decreased breath sounds. HEART: Normal S1, S2. ABDOMEN: Soft, nontender. LABORATORY EXAMINATION: Reveals a white count of 14,300, hemoglobin of 13, platelets of 144. Coagul ation is noted. Chemistries reveal the BUN of 59, creatinine of 1.7. C-reactive protein is noted wi th LFT elevations, normal alk phos, CK elevated. Urinalysis is noted. Microbiology reveals a group G strep in the blood with repeat blood cultures negative. The left foot culture is sensitive to stap h aureus. Review of the orders reveals the patient to be on ceftriaxone 2 grams daily. The patient had an echo on the . No evidence of vegetations. Dr. Rees's note is reviewed, and Dr. Conroy's note is reviewed. ASSESSMENT AND PLAN: This is an 80-year-old male with past medical history significant for dementia, chronic renal failure, obesity, body mass index of 38, admitted on this admission with severe sepsis with acute kidney injury on top of chronic kidney failure. The patient was admitted with severe sep sis, had group G strep bacteremia, sensitive Staphylococcus aureus lower extremity, left foot celluli tis, currently on ceftriaxone 2 grams daily and must rule out underlying osteomyelitis, but the cellu litis is probable cause of the group G strep with a negative echo, most likely will need prolonged an tibiotic therapy. Currently on ceftriaxone day #4 of 28 days of ceftriaxone 2 grams q. 24 hours with a CBC, SMA-18, sed rate, C-reactive protein once weekly in a patient has elevated C-reactive protein , elevated CPK, and LFTs, and is more confusion than her baseline. We will follow closely with you. Wally Wylie MD cc: [phone] TT: 07/03/2016 09:50:35 Confirmation # [id number] Dictation # [id number] jn
[2016-07-03] MEDS: Clotrimazole 1% Cream(30 gm) TOP SCH ×2 (10:56→17:55)
[2016-07-03] MEDS: Silver Sulfadiazine 1% Cream (20 gm) TOP SCH (10:57)
--- NOTE | 2016-07-03 11:10 | PN ---
DATE: 07/03/2016 SUBJECTIVE: The patient is seen lying in bed on telemetry. He was restless last evening and require d sedation, as well as placement of a Edith vest. He remains in a [place] vest and is somewhat restles s and somnolent. He has had paroxysmal atrial fibrillation on the monitor. CURRENT MEDICATIONS: Include aspirin, DuoNeb inhaler, metoprolol 25 mg b.i.d., Rocephin, sodium bica rbonate infusion. OBJECTIVE: GENERAL: He is an obese, elderly man. VITAL SIGNS: His blood pressure is 146/90 with a pulse of 100-120 in atrial fibrillation. Respirati ons are 16. He is afebrile. HEENT: No JVD. CHEST: Clear breath sounds anteriorly. HEART: Rhythm is irregularly irregular with a systolic murmur at the left sternal border. ABDOMEN: Soft, obese with bowel sounds present. EXTREMITIES: Chronic cellulitic changes, and wounds appear improved. DIAGNOSTIC DATA: CK is down to 4436. BUN and creatinine 59 and 1.7. Potassium 4.1. White count 14 .3 with hemoglobin and hematocrit 13.1 and 39.1, and platelet count 144,000. IMPRESSION: 1. Resolving rhabdomyolysis, clinically improved with improved renal parameters. 2. Status post recent fall. 3. Paroxysmal atrial fibrillation with high risk for self-injury given falls and altered mental stat us. 4. Probable coronary artery disease, clinically stable. 5. History of tobacco abuse. RECOMMENDATIONS: Continued beta-randi therapy for rate control is advised at this time. Anticoagu lation appears somewhat risky given his recent falls and potential risk for self-injury. If his ment al status improves, and it is proven he does not have significant gait instability, chronic anticoagu lant therapy can be considered. We will continue to follow along and make further recommendations as appropriate. Ashish Willis MD cc: [phone] TT: 07/03/2016 11:10:49 Confirmation # [id number] Dictation # [id number] natasha
[2016-07-03 13:50] LABS: TROPONIN I 0.09 ng/mL
[2016-07-03 14:18] LABS: ARTERIAL BLOOD GAS HCO3 25.2 mmol/L (21-28); ARTERIAL BLOOD GAS O2 CAPACITY 19.6 mL/dl (16-24); ARTERIAL BLOOD GAS O2 CONTENT 19.2 ML/dl (15-23); ARTERIAL BLOOD GAS PH 7.43 (7.35-7.45); ARTERIAL BLOOD HGB O2 SAT 95.1 % (95.0-98.0); CARBOXYHEMOGLOBIN 2.1 % (0.5-1.5); HHB 2.1 % (0-5); METHEMOGLOBIN 0.8 % (0.0-3.0)
--- NOTE | 2016-07-03 14:30 | RAD ---
HISTORY: cough COMPARISON: 07/01/2016 FINDINGS: LUNGS: The lungs are well inflated. PLEURA: No significant pleural effusion identified, no pneumothorax apparent. CARDIOVASCULAR: The heart is normal in size. OSSEOUS STRUCTURES: No significant abnormalities. VISUALIZED UPPER ABDOMEN: Normal. OTHER FINDINGS: None. IMPRESSION: No active pulmonary disease.
--- NOTE | 2016-07-03 14:44 | PN ---
DATE: 07/03/2016 SUBJECTIVE: The patient is an 80-year-old, seen and examined, seems to be confused and disoriented, was confused last night, currently in claribel to keep him safe from climbing out of bed. According to the nurse, he did not eat much. PHYSICAL EXAMINATION: VITAL SIGNS: He has temperature of 100.5, pulse 71, respirations 18, blood pressure 175/60. LUNGS: Bilateral soft crackle in the upper lung region. HEART: S1, S2 audible. ABDOMEN: Soft, obese, nontender, no rebound, no guarding. NEUROLOGIC: He is awake and alert, but confused and disoriented. EXTREMITIES: Bilateral leg. He has chronic stasis dermatitis with social history of ulcers. LABORATORY EXAMINATION: WBC is 14.3, hemoglobin 13, hematocrit 39, platelet of 144. Chemistry: Sod ium 139, potassium 4.1, chloride 103, CO2 of 25, BUN 59, creatinine 1.7, blood sugar of 166. CPK is 4436. BNP is 9350. ASSESSMENT AND PLAN: 1. Status post altered mental status, status post fall. 2. Resolving rhabdomyolysis, resolving renal failure. 3. Paroxysmal atrial fibrillation. 4. Dementia. 5. Metabolic encephalopathy. 6. Electrolyte imbalance. 7. Staphylococcus aureus foot infection. 8. Streptococcus bacteremia. Repeat urine cultures are negative. 9. Dementia. 10. Mild chronic periventricular disease, vascular disease. PLAN: The patient is on IV fluid. I will cut down from 125 mL to 80 mL per hour since his BNP is hi gh. Continue him on beta blockers. He is currently on Rocephin. Follow up his electrolytes in a.m. Angela Wilson MD cc: [phone] TT: 07/03/2016 14:43:17 Confirmation # [id number] Dictation # [id number]
--- NOTE | 2016-07-03 15:14 | PN ---
DATE: 07/03/2016 SUBJECTIVE: The patient is lying in bed. He is slightly agitated and coughing. He is responsive to verbal commands. He is restrained in a Edith vest. OBJECTIVE: VITAL SIGNS: Blood pressure 175/60, temperature 100.5 axillary, pulse 71, respiratory rate 18. LUNGS: Show a few bibasilar rales. HEART: Regular rate and rhythm. ABDOMEN: Soft, bowel sounds are normal, active, nontender. GENITOURINARY: Indwelling Jc catheter is intact with gross red blood. EXTREMITIES: With 1+ bipedal edema. Wound dressings are intact. NEUROLOGIC: The patient is awake and slightly confused without focal sensory or motor deficits. SKIN: Warm and dry. LABORATORY DATA: WBC is 14.3, hemoglobin 13.1, hematocrit 35.1. Sodium 139, potassium 4.1, chloride 103, CO2 of 25, BUN 59, creatinine 1.7, glucose 166. CPK is 4436. BNP is elevated at 9350. Chest x-ray shows no active disease. Arterial blood gas shows pH 7.43, pCO2 38, pO2 of 90, bicarb 25.2% on FIO2 of 32% with O2 saturation 95.1%. IMPRESSION: 1. Hypertension, hypertensive cardiovascular disease and congestive heart failure. 2. Acute rhabdomyolysis with acute renal failure superimposed on chronic kidney disease. 3. Chronic venous stasis ulcers of the lower extremities with cellulitis and sepsis. 4. Paroxysmal atrial fibrillation with intermittent rapid ventricular rate. 5. Coronary artery disease. 6. Dementia with superimposed delirium secondary to underlying metabolic problem. 7. Immobility secondary to degenerative joint disease and right leg weakness of uncertain etiology. 8. Hematuria, probably trauma secondary to patient pulling on Jc catheter. PLAN: The patient has been given a dose of IV Lasix this morning. Will give additional 40 mg subQ n ow, monitor renal function. Consider discontinuation of saline. Continue discontinuation of IV flui ds with bicarb when renal function is stable. Continue orthopedic followup with Dr. Piedra. A waiting results of CT of the hip. Continue cardiology followup with Drs. Olmedo/Lazaro. Continue infectious disease followup with Dr. Wylie, continue with IV antibiotics. Would obtain consu lt if hematuria persists. The patient at the present time requires a higher level of care than can b e provided at a alf facility. Would continue inpatient care at the present time. Leonid Calderón JD, MD cc: [phone] TT: 07/03/2016 15:13:53 Confirmation # [id number] Dictation # [id number] an
--- NOTE | 2016-07-03 15:34 | CT ---
PROCEDURE: CT of the bilateral hip joints HISTORY: fx rt hip c arthritis COMPARISON: Plain radiographs from 06/30 2016. TECHNIQUE: Contiguous axial images of the right hip were obtained. Coronal and sagittal reformats were generated. FINDINGS: BONES: The pelvic ring is intact. There is no acute fracture or bone destruction. There is diffuse bone demineralization. RIGHT HIP JOINT: There is severe degenerative osteoarthrosis in the right hip joint with near complete loss of joint space, extensive subarticular cystic changes in the femoral head and acetabulum and large marginal osteophytes. There is a small joint effusion. There is also moderate to severe degenerative osteoarthrosis in the left hip joint with near complete loss of superolateral joint space and marginal osteophytes. There are mild subarticular cystic changes. SOFT TISSUES: There is calcification lateral to the right greater trochanter. There is mild fatty atrophy of the periarticular muscles. IMPRESSION: 1. 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 Extensive subarticular cystic changes. Small right joint effusion. 2. Moderate to severe degenerative osteoarthrosis in the left hip joint. 3. No acute displaced fracture or dislocation. Please note occult fractures cannot be excluded. If there is a persistent clinical concern, an MRI of the hip may be performed for further evaluation.
--- NOTE | 2016-07-04 00:11 | CP.PCM.PN ---
Subjective - Date & Time of Evaluation Date of Evaluation: 07/03/16 Time of Evaluation: 23:59 - Subjective Subjective: Patient was seen at bedside because he was acting up. Patient has no complaints.Keeps on moaning. Medical record was reviewed. This 80 year old white male after a fall with acute rhabdomyolysis,ARF,sepsis. Has PMH of HTN,Dementia, obesity, hearing impairment, OA,CKD. Objective - Vital Signs/Intake and Output Vital Signs (last 24 hours): Temp Pulse Resp BP Pulse Ox 98.2 F 86 18 167/69 H 98 07/03/16 20:28 07/03/16 17:55 07/03/16 12:00 07/03/16 17:55 07/03/16 06:00 Intake and Output: 07/03/16 07/04/16 18:59 06:59 Intake Total 900 240 Output Total 200 Balance 900 40 - Medications Medications: Current Medications Acetaminophen (Tylenol 325mg Tab) 650 mg PO Q4 PRN PRN Reason: Fever >100.4 F Last Admin: 06/30/16 09:15 Dose: 650 mg Albuterol/Ipratropium (Duoneb 3 Mg/0.5 Mg (3 Ml) Ud) 3 ml IH [id number] PRN PRN Reason: Shortness of Breath Last Admin: 07/03/16 21:16 Dose: 3 ml Aspirin (Aspirin) 325 mg PO DAILY [facility] Last Admin: 07/03/16 11:51 Dose: 325 mg Clotrimazole (Lotrimin 1%) 0 gm TOP BID [facility] Last Admin: 07/03/16 17:55 Dose: 1 applic Ceftriaxone Sodium (Rocephin 2 Gm Ivpb) 100 mls @ 100 mls/hr IVPB DAILY [facility] PRN Reason: Protocol Stop: 07/16/16 10:01 Last Admin: 07/03/16 10:03 Dose: 100 mls/hr Sodium Bicarbonate 50 meq/ (Sodium Chloride) 1,050 mls @ 50 mls/hr IV .Q21H [facility] Metoprolol Tartrate (Lopressor) 25 mg PO BID [facility] Last Admin: 07/03/16 17:55 Dose: 25 mg Morphine Sulfate (Morphine) 1 mg IVP Q4H PRN PRN Reason: Pain, moderate (4-7) Last Admin: 07/03/16 02:00 Dose: 1 mg Silver Sulfadiazine (Silvadene 1% 20 Gm) 0 ea TOP DAILY [facility] Last Admin: 07/03/16 10:57 Dose: 1 applic - Labs Labs: 07/03/16 06:00 07/03/16 06:00 PT 12.1 Seconds (9.9-11.8) H 07/02/16 06:15 INR 1.12 (0.93-1.08) H 07/02/16 06:15 APTT 32.7 Seconds (23.7-30.8) H 06/29/16 03:33 - Constitutional Appears: Well, No Acute Distress - Head Exam Head Exam: ATRAUMATIC, NORMAL INSPECTION, NORMOCEPHALIC - Eye Exam Eye Exam: Normal appearance Additional comments: Obese. - ENT Exam ENT Exam: Normal External Ear Exam - Neck Exam Neck Exam: Normal Inspection - Respiratory Exam Respiratory Exam: NORMAL BREATHING PATTERN - Cardiovascular Exam Cardiovascular Exam: absent: JVD - GI/Abdominal Exam GI & Abdominal Exam: absent: Distended - Rectal Exam Rectal Exam: Deferred - Extremities Exam Extremities Exam: Normal Inspection - Back Exam Back Exam: NORMAL INSPECTION - Neurological Exam Neurological Exam: Altered - Psychiatric Exam Psychiatric exam: absent: Agitated - Skin Skin Exam: Normal Color Assessment and Plan - Assessment and Plan (Free Text) Assessment: A/P:Agitation. Hypertension. Dementia. Obesity. Ativan 0.5 mg IV x 1 Continue management.
[2016-07-04] MEDS: Albuterol-Ipratrop 3 mg / 0.5 (3 ml) UD IH PRN ×2 (02:20→13:58)
[2016-07-04] MEDS: Morphine 2 mg/ml ISec IVP PRN (02:22)
[2016-07-04 07:09] LABS: HEMATOCRIT 39.7 % (42.0-52.0); MEAN CELL VOLUME 82.9 fL (80.0-105.0); MEAN CORPUSCULAR HEMOGLOBIN 27.8 pg (25.0-35.0); MEAN CORPUSCULAR HGB CONC 33.5 g/dl (31.0-37.0); MEAN PLATELET VOLUME 9.6 fl (7.0-11.0); PLATELET COUNT 163 10^3/uL (120.0-450.0); RED CELL DISTRIBUTION WIDTH 14.5 % (11.5-14.5); WHITE BLOOD COUNT 19.4 10^3/ul (4.5-11.0)
[2016-07-04 07:19] LABS: ADD MANUAL DIFF? YES
[2016-07-04 07:25] LABS: ALB/GLOB RATIO 0.9 (1.1-1.8); BILIRUBIN,TOTAL 0.7 mg/dL (0.2-1.3); CALCIUM 8.5 mg/dL (8.4-10.5); POTASSIUM 4.1 mmol/L (3.6-5.0); TOTAL PROTEIN 5.9 g/dL (5.8-8.3)
--- NOTE | 2016-07-04 08:16 | PN ---
DATE: 07/04/2016 SUBJECTIVE: The patient has no complaints of any chest pain, no shortness of breath, no headaches or dizziness. PHYSICAL EXAMINATION: VITAL SIGNS: Temperature 98, pulse of 107, blood pressure 150/73. GENERAL: The patient comfortable, in no acute distress. HEENT: Anicteric sclerae. Moist mucosa. NECK: No JVD or adenopathy. CARDIAC: S1/S2. No murmurs. No rubs. Regular. RESPIRATORY: Clear to auscultation bilaterally. No wheezes, rales, or rhonchi. Good air entry. ABDOMEN: Bowel sounds are positive, soft, nontender, and nondistended. EXTREMITIES: No edema. Has 1+ pulses. LABS: Creatinine is 1.7. White count is 14.3. Chest x-ray done shows no active pulmonary disease. 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 No acute displaced fracture. ASSESSMENT: 1. Delirium. 2. Sepsis. 3. Acute kidney injury secondary to rhabdomyolysis. 4. Iron deficiency. 5. Proteinuria, 2 grams per day. 6. Paroxysmal atrial fibrillation. 7. Right knee pain secondary to degenerative joint disease. 8. Hyperphosphatemia. 9. Obesity with a body mass index of 37. 10. Acute kidney injury, improving. PLAN: The patient is currently comfortable. I will discontinue his IV fluids. He is on morphine fo r pain. He is receiving Rocephin for antibiotics. He is on a heart healthy diet. He is to get phys ical therapy. He is being followed by multiple consultants. Will repeat his blood work tomorrow. Kolby Last MD cc: [id number] TT: 07/04/2016 08:15:37 Confirmation # [id number] Dictation # [id number] mn
--- NOTE | 2016-07-04 08:31 | CP.PCM.PN ---
Subjective - Date & Time of Evaluation Date of Evaluation: 07/04/16 Time of Evaluation: 08:00 - Subjective Subjective: Stable on 2R. Confused. No CP or SOB reported. V/S noted. RSR/S. Tachy. No PAF recently PE: Lungs: clear Cor.: S1S2 Abd.: soft Ext.: no edema Neuro.: dementia I/O= 240/2500 Labs noted: Cr.= 2.1, WBC = 96990 BC x1 + Grp G Strep. Several BCs are NG. Wound C+S: Staph aur. ECG 06/29: RSR, RBBB, Possible IMI Echo: Nl LV fx with mild conc. LVH, no veg. seen. See report. Objective - Vital Signs/Intake and Output Vital Signs (last 24 hours): Temp Pulse Resp BP Pulse Ox 98 F 104 H 18 148/76 96 07/04/16 06:00 07/04/16 06:00 07/04/16 06:00 07/04/16 06:00 07/04/16 06:00 Intake and Output: 07/04/16 07/04/16 06:59 18:59 Intake Total 960 240 Output Total 700 2500 Balance 260 -2260 - Medications Medications: Current Medications Acetaminophen (Tylenol 325mg Tab) 650 mg PO Q4 PRN PRN Reason: Fever >100.4 F Last Admin: 06/30/16 09:15 Dose: 650 mg Albuterol/Ipratropium (Duoneb 3 Mg/0.5 Mg (3 Ml) Ud) 3 ml IH [id number] PRN PRN Reason: Shortness of Breath Last Admin: 07/04/16 02:20 Dose: 3 ml Aspirin (Aspirin) 325 mg PO DAILY [facility] Last Admin: 07/03/16 11:51 Dose: 325 mg Clotrimazole (Lotrimin 1%) 0 gm TOP BID [facility] Last Admin: 07/03/16 17:55 Dose: 1 applic Ceftriaxone Sodium (Rocephin 2 Gm Ivpb) 100 mls @ 100 mls/hr IVPB DAILY [facility] PRN Reason: Protocol Stop: 07/16/16 10:01 Last Admin: 07/03/16 10:03 Dose: 100 mls/hr Metoprolol Tartrate (Lopressor) 25 mg PO BID [facility] Last Admin: 07/03/16 17:55 Dose: 25 mg Morphine Sulfate (Morphine) 1 mg IVP Q4H PRN PRN Reason: Pain, moderate (4-7) Last Admin: 07/04/16 02:22 Dose: 1 mg Silver Sulfadiazine (Silvadene 1% 20 Gm) 0 ea TOP DAILY [facility] Last Admin: 07/03/16 10:57 Dose: 1 applic - Labs Labs: 07/04/16 06:30 07/04/16 06:30 PT 12.1 Seconds (9.9-11.8) H 07/02/16 06:15 INR 1.12 (0.93-1.08) H 07/02/16 06:15 APTT 32.7 Seconds (23.7-30.8) H 06/29/16 03:33 Assessment and Plan - Assessment and Plan (Free Text) Plan: Assessment: Fall at home, details unknown/Right Knee Pain Acute rhabdo., improving Acute renal failure, improving + trop in setting of acute on chronic kidney disease and acute rhabdo., probably not acute NC Sepsis/Grp G strept bacteremia Cellulitis Dementia HBP RBBB IMI on ECG, probbably old Former Smoker Renal Stones Cataracts Diminished hearing Plan: AB, as per ID Monitor: I/O, labs, Renal fx., cultures, sats., CK's, etc As per ID, Ortho, Neuro.,Podiatry, Dr. Castañeda and Dr. Calderón Conservative Cardiac Care is anticipated
[2016-07-04 08:47] LABS: BAND 2 % (0-2); NEUTROPHIL 83 % (50.0-70.0)
[2016-07-04 08:48] LABS: ANISOCYTOSIS SLIGHT; PLATELET ESTIMATE NORMAL (NORMAL)
[2016-07-04] MEDS: Clotrimazole 1% Cream(30 gm) TOP SCH (10:57)
[2016-07-04] MEDS: Silver Sulfadiazine 1% Cream (20 gm) TOP SCH (10:59)
[2016-07-04] MEDS ORDERED: Lidocaine 2% Inj (20ml) ONE (11:56)
[2016-07-04 14:11] LABS: ARTERIAL BLOOD GAS HCO3 27.8 mmol/L (21-28); ARTERIAL BLOOD GAS O2 CAPACITY 17.7 mL/dl (16-24); ARTERIAL BLOOD GAS O2 CONTENT 17.3 ML/dl (15-23); ARTERIAL BLOOD HGB O2 SAT 94.8 % (95.0-98.0); CARBOXYHEMOGLOBIN 2.6 % (0.5-1.5); HHB 2.2 % (0-5); METHEMOGLOBIN 0.5 % (0.0-3.0)
[2016-07-04 14:17] LABS: ARTERIAL BLOOD GAS PH 7.16 (7.35-7.45)
[2016-07-04] MEDS ORDERED: Etomidate 20 mg/10ml Inj IV ONE (14:44)
--- NOTE | 2016-07-04 14:44 | RAD ---
HISTORY: sob COMPARISON: 07/01/2016 FINDINGS: LUNGS: Linear scar/atelectasis at left base. No pulmonary infiltrate. PLEURA: No significant pleural effusion identified, no pneumothorax apparent. CARDIOVASCULAR: The left PICC catheter terminates in the region of the superior vena cava. OSSEOUS STRUCTURES: No significant abnormalities. VISUALIZED UPPER ABDOMEN: Normal. OTHER FINDINGS: None. IMPRESSION: No acute infiltrate. Probable linear atelectasis/ scar at left base. New left PICC catheter.
--- NOTE | 2016-07-04 15:03 | CP.PCM.PN ---
Subjective - Date & Time of Evaluation Date of Evaluation: 07/04/16 Time of Evaluation: 09:40 - Subjective Subjective: Patient is resting comfortably in bed, not in distress, no fevers overnight. Objective - Vital Signs/Intake and Output Vital Signs (last 24 hours): Temp Pulse Resp BP Pulse Ox 98 F 104 H 18 148/76 96 07/04/16 06:00 07/04/16 06:00 07/04/16 06:00 07/04/16 06:00 07/04/16 06:00 Intake and Output: 07/04/16 07/04/16 06:59 18:59 Intake Total 960 240 Output Total 700 2500 Balance 260 -2260 - Medications Medications: Current Medications Acetaminophen (Tylenol 325mg Tab) 650 mg PO Q4 PRN PRN Reason: Fever >100.4 F Last Admin: 06/30/16 09:15 Dose: 650 mg Albuterol/Ipratropium (Duoneb 3 Mg/0.5 Mg (3 Ml) Ud) 3 ml IH [id number] PRN PRN Reason: Shortness of Breath Last Admin: 07/04/16 02:20 Dose: 3 ml Aspirin (Aspirin) 325 mg PO DAILY [facility] Last Admin: 07/03/16 11:51 Dose: 325 mg Clotrimazole (Lotrimin 1%) 0 gm TOP BID [facility] Last Admin: 07/03/16 17:55 Dose: 1 applic Ceftriaxone Sodium (Rocephin 2 Gm Ivpb) 100 mls @ 100 mls/hr IVPB DAILY [facility] PRN Reason: Protocol Stop: 07/16/16 10:01 Last Admin: 07/03/16 10:03 Dose: 100 mls/hr Metoprolol Tartrate (Lopressor) 25 mg PO BID [facility] Last Admin: 07/03/16 17:55 Dose: 25 mg Morphine Sulfate (Morphine) 1 mg IVP Q4H PRN PRN Reason: Pain, moderate (4-7) Last Admin: 07/04/16 02:22 Dose: 1 mg Silver Sulfadiazine (Silvadene 1% 20 Gm) 0 ea TOP DAILY [facility] Last Admin: 07/03/16 10:57 Dose: 1 applic - Labs Labs: 07/04/16 06:30 07/04/16 06:30 PT 12.1 Seconds (9.9-11.8) H 07/02/16 06:15 INR 1.12 (0.93-1.08) H 07/02/16 06:15 APTT 32.7 Seconds (23.7-30.8) H 06/29/16 03:33 - Constitutional Appears: Non-toxic, No Acute Distress - Head Exam Head Exam: NORMAL INSPECTION - ENT Exam ENT Exam: Mucous Membranes Moist - Neck Exam Neck Exam: absent: Lymphadenopathy, Meningismus - Respiratory Exam Respiratory Exam: Decreased Breath Sounds - Cardiovascular Exam Cardiovascular Exam: +S1, +S2 - GI/Abdominal Exam GI & Abdominal Exam: Soft. absent: Tenderness - Extremities Exam Additional comments: both lower extremities with bandages in place; still with some erythema over both lower extremities but it has improved Assessment and Plan - Assessment and Plan (Free Text) Plan: Assessment severe sepsis with acute on chronic renal failure due to Group G strep bacteremia, probably secondary to bilateral lower extremities skin and skin structure infection; also with MSSA from the wound cultures acute rhabdomyolysis consider acute NSTEMI HTN chronic renal failure dementia obesity with BMI 38 Plan Will continue Rocephin (day 5 from 1st negative blood cx) - will recommend prolonged antibiotic course (ie. 28 days of Rocephin) reviewed Podiatry evaluation 2D echocardiogram does not show vegetations will continue to monitor clinically
--- NOTE | 2016-07-04 15:06 | CP.PCM.PN ---
<Edi Thorpe - Last Filed: 07/04/16 14:58> Subjective - Date & Time of Evaluation Date of Evaluation: 07/04/16 Time of Evaluation: 14:26 - Subjective Subjective: Rapid Response Note: Responded stat to rapid call. Patient was unresponsive and ABG was abnormal which led to the rapid response call. Patient was obtunded and per nursing, patient was somnolent all morning and went for PICC line placement. He had been given ativan for procedure. VS were: BP 125/50, HR- 99, SpO2 < 90, on BIPAP SpO2 94 ROS could not be obtained due to patient's condition. PMHx: HTN, dementia, obesity, chronic renal failure, mechanical falls was admitted with sepsis and NSTEMI Objective - Vital Signs/Intake and Output Vital Signs (last 24 hours): Temp Pulse Resp BP Pulse Ox 98 F 82 20 115/44 L 96 07/04/16 12:00 07/04/16 14:40 07/04/16 12:00 07/04/16 12:00 07/04/16 06:00 Intake and Output: 07/04/16 07/04/16 06:59 18:59 Intake Total 960 240 Output Total 700 2500 Balance 260 -2260 - Medications Medications: Current Medications Acetaminophen (Tylenol 325mg Tab) 650 mg PO Q4 PRN PRN Reason: Fever >100.4 F Last Admin: 06/30/16 09:15 Dose: 650 mg Albuterol/Ipratropium (Duoneb 3 Mg/0.5 Mg (3 Ml) Ud) 3 ml IH [id number] PRN PRN Reason: Shortness of Breath Last Admin: 07/04/16 13:58 Dose: 3 ml Alprazolam (Xanax) 0.25 mg PO Q6 PRN; Protocol PRN Reason: Anxiety Stop: 07/11/16 12:01 Aspirin (Aspirin) 325 mg PO DAILY [facility] Last Admin: 07/03/16 11:51 Dose: 325 mg Clotrimazole (Lotrimin 1%) 0 gm TOP BID [facility] Last Admin: 07/04/16 10:57 Dose: 1 applic Ceftriaxone Sodium (Rocephin 2 Gm Ivpb) 100 mls @ 100 mls/hr IVPB DAILY [facility] PRN Reason: Protocol Stop: 07/16/16 10:01 Last Admin: 07/04/16 11:02 Dose: 100 mls/hr Metoprolol Tartrate (Lopressor) 25 mg PO BID [facility] Last Admin: 07/03/16 17:55 Dose: 25 mg Morphine Sulfate (Morphine) 1 mg IVP Q4H PRN PRN Reason: Pain, moderate (4-7) Last Admin: 07/04/16 02:22 Dose: 1 mg Silver Sulfadiazine (Silvadene 1% 20 Gm) 0 ea TOP DAILY [facility] Last Admin: 07/04/16 10:59 Dose: 1 applic - Labs Labs: 07/04/16 06:30 07/04/16 06:30 PT 12.1 Seconds (9.9-11.8) H 07/02/16 06:15 INR 1.12 (0.93-1.08) H 07/02/16 06:15 APTT 32.7 Seconds (23.7-30.8) H 06/29/16 03:33 - Constitutional Appears: Other (obtunded, unresponsive to deep pain stimuli, shallow respirations, patient just placed on BIPAP) - Head Exam Head Exam: ATRAUMATIC, NORMAL INSPECTION, NORMOCEPHALIC - Eye Exam Additional comments: 2mm pupils bilaterally sluggish to light - ENT Exam ENT Exam: Mucous Membranes Moist - Neck Exam Neck Exam: Normal Inspection - Respiratory Exam Respiratory Exam: Decreased Breath Sounds. absent: Accessory Muscle Use, Rhonchi, Wheezes - Cardiovascular Exam Cardiovascular Exam: REGULAR RHYTHM, +S1, +S2. absent: Gallop, Rubs, Murmur - GI/Abdominal Exam GI & Abdominal Exam: Soft, Normal Bowel Sounds - Extremities Exam Extremities Exam: absent: Pedal Edema Additional comments: multiple non-healed lesions some with dressings dorsalis pedis pulses not palpable - Neurological Exam Neurological Exam: Altered (obtunded, unresponsive to deep painful stimuli, ) Neuro motor strength exam: Left Upper Extremity: 0, Right Upper Extremity: 0, Left Lower Extremity: 0, Right Lower Extremity: 0 Additional comments: obtunded - Skin Skin Exam: Diaphoretic, Warm. absent: Intact (multiple non-healing lesions) Assessment and Plan - Assessment and Plan (Free Text) Assessment: 80 y/o M admitted for sepsis developed CO2 narcosis Plan: Stat EKG showed NSR with RBBB unchanged from prior EKG in chart. Already placed on BIPAP, labs from this AM reviewed. Portable chest x-ray and troponin ordered stat Patient assessed by regional manager Dr. Shepherd and accepted to ICU, to be intubated there. With BIPAP and compliance monitor in place, he was transferred to ICU by RR team and endorsed to ICU. <Alma Ocampo - Last Filed: 07/04/16 15:35> Objective - Vital Signs/Intake and Output Vital Signs (last 24 hours): Temp Pulse Resp BP Pulse Ox 98 F 82 20 115/44 L 96 07/04/16 12:00 07/04/16 14:40 07/04/16 12:00 07/04/16 12:00 07/04/16 06:00 Intake and Output: 07/04/16 07/04/16 06:59 18:59 Intake Total 960 240 Output Total 700 2500 Balance 260 -2260 - Medications Medications: Current Medications Acetaminophen (Tylenol 325mg Tab) 650 mg PO Q4 PRN PRN Reason: Fever >100.4 F Last Admin: 06/30/16 09:15 Dose: 650 mg Albuterol/Ipratropium (Duoneb 3 Mg/0.5 Mg (3 Ml) Ud) 3 ml IH [id number] PRN PRN Reason: Shortness of Breath Last Admin: 07/04/16 13:58 Dose: 3 ml Alprazolam (Xanax) 0.25 mg PO Q6 PRN; Protocol PRN Reason: Anxiety Stop: 07/11/16 12:01 Aspirin (Aspirin) 325 mg PO DAILY [facility] Last Admin: 07/03/16 11:51 Dose: 325 mg Clotrimazole (Lotrimin 1%) 0 gm TOP BID [facility] Last Admin: 07/04/16 10:57 Dose: 1 applic Ceftriaxone Sodium (Rocephin 2 Gm Ivpb) 100 mls @ 100 mls/hr IVPB DAILY [facility] PRN Reason: Protocol Stop: 07/16/16 10:01 Last Admin: 07/04/16 11:02 Dose: 100 mls/hr Metoprolol Tartrate (Lopressor) 25 mg PO BID [facility] Last Admin: 07/03/16 17:55 Dose: 25 mg Morphine Sulfate (Morphine) 1 mg IVP Q4H PRN PRN Reason: Pain, moderate (4-7) Last Admin: 07/04/16 02:22 Dose: 1 mg Silver Sulfadiazine (Silvadene 1% 20 Gm) 0 ea TOP DAILY [facility] Last Admin: 07/04/16 10:59 Dose: 1 applic - Labs Labs: 07/04/16 06:30 07/04/16 06:30 PT 12.1 Seconds (9.9-11.8) H 07/02/16 06:15 INR 1.12 (0.93-1.08) H 07/02/16 06:15 APTT 32.7 Seconds (23.7-30.8) H 06/29/16 03:33 Attending/Attestation - Attestation I have personally seen and examined this patient.: Yes I have fully participated in the care of the patient.: Yes I have reviewed all pertinent clinical information, including history, physical exam and plan: Yes
--- NOTE | 2016-07-04 15:26 | VASCULAR ---
PROCEDURE: Ultrasound and fluoroscopically placed left upper extremity PICC line. HISTORY: Sepsis. Long-term IV antibiotics. Needs PICC line. PHYSICIAN(S): Terrence Bedolla MD. TECHNIQUE: The relative risks and indications of the procedure were explained to the patient's family and consent obtained. The patient was placed supine on the arteriogram table and the left arm prepped and draped in the usual sterile fashion. A tourniquet was applied to the left axilla. 1% Xylocaine was used to anesthetize the skin and soft tissues at the puncture site above the elbow. The left basilic vein was punctured under direct ultrasound guidance with a micropuncture set. A 0.018 guidewire was advanced centrally and used to measure the length to the SVC/RA junction. A 5 [place] single-lumen PICC line 50 cm long was advanced to the SVC/RA junction. The catheter was flushed and secured. The patient tolerated the procedure well. IMPRESSION: 1. Ultrasound and fluoroscopically placed left upper extremity PICC line. A 5 [place] single-lumen PICC line 50 cm long was advanced to the SVC/RA junction.
--- NOTE | 2016-07-04 15:35 | CP.PCM.CON ---
<Anastacio Johnson - Last Filed: 07/04/16 15:47> History of Present Illness - History of Present Illness History of Present Illness: ICU consult 80 year old male with PMH of COPD, HTN, dementia, obesity with BMI 38 came in to [facility] after he sustained a mechanical fall at home. He did not hit his head and did not lose consciousness, no convulsions, no fevers at home, no dizziness, no lightheadedness, no chest pain or palpitations. He was not able to get himself off the floor and stayed there for sometime. In the ED, he was noted to have low grade fevers. The patient has wounds on both lower extremities whic has ongoing for the past month, but seemed to have worsened over the past few days. Patient has a pet dog at home, but no history of soaking his legs in water. Pt was admitted for acute on chronic INEZ 2/2 rhabdomyelysis and sepsis. Pt has been spiking fevers and has leukocytosis. While pt was on the floor, rapid response was called, pt was found to be unresponsive and have respiratory failure. Pt is tranfered to ICU and intubated. Review of Systems - Review of Systems Systems not reviewed;Unavailable: Intubated Past Patient History - Past Medical History & Family History Past Medical History?: Yes Past Family History: Reviewed and not pertinent - Past Social History Smoking Status: Former Smoker - CARDIAC Hx Hypertension: Yes - PULMONARY Hx Respiratory Disorders: No - NEUROLOGICAL Hx Neurological Disorder: No - HEENT Hx Cataracts: Yes (bilateral surgery) Hx Deafness: Yes (bilateral hearing aids) Other/Comment: eye glasses for driving and reading - RENAL Hx Kidney Stones: Yes (many years ago) - HEMATOLOGICAL/ONCOLOGICAL Hx Blood Disorders: No - MUSCULOSKELETAL/RHEUMATOLOGICAL Hx Falls: Yes - PSYCHIATRIC Hx Substance Use: No - SURGICAL HISTORY Hx Surgeries: Yes (cataract surgery) Other/Comment: pilonidal cyst Meds Allergies/Adverse Reactions: Allergies Allergy/AdvReac Type Severity Reaction Status Date / Time No Known Allergies Allergy Verified 06/29/16 03:08 - Medications Medications: Current Medications Acetaminophen (Tylenol 325mg Tab) 650 mg PO Q4 PRN PRN Reason: Fever >100.4 F Last Admin: 06/30/16 09:15 Dose: 650 mg Albuterol/Ipratropium (Duoneb 3 Mg/0.5 Mg (3 Ml) Ud) 3 ml IH [id number] PRN PRN Reason: Shortness of Breath Last Admin: 07/04/16 13:58 Dose: 3 ml Alprazolam (Xanax) 0.25 mg PO Q6 PRN; Protocol PRN Reason: Anxiety Stop: 07/11/16 12:01 Aspirin (Aspirin) 325 mg PO DAILY [facility] Last Admin: 07/03/16 11:51 Dose: 325 mg Clotrimazole (Lotrimin 1%) 0 gm TOP BID [facility] Last Admin: 07/04/16 10:57 Dose: 1 applic Ceftriaxone Sodium (Rocephin 2 Gm Ivpb) 100 mls @ 100 mls/hr IVPB DAILY [facility] PRN Reason: Protocol Stop: 07/16/16 10:01 Last Admin: 07/04/16 11:02 Dose: 100 mls/hr Metoprolol Tartrate (Lopressor) 25 mg PO BID [facility] Last Admin: 07/03/16 17:55 Dose: 25 mg Morphine Sulfate (Morphine) 1 mg IVP Q4H PRN PRN Reason: Pain, moderate (4-7) Last Admin: 07/04/16 02:22 Dose: 1 mg Silver Sulfadiazine (Silvadene 1% 20 Gm) 0 ea TOP DAILY [facility] Last Admin: 07/04/16 10:59 Dose: 1 applic Physical Exam - Constitutional Appears: In Acute Distress, Confused - Head Exam Head Exam: ATRAUMATIC, NORMAL INSPECTION, NORMOCEPHALIC - Eye Exam Eye Exam: EOMI, Normal appearance, PERRL Pupil Exam: NORMAL ACCOMODATION - ENT Exam ENT Exam: Mucous Membranes Dry - Respiratory Exam Respiratory Exam: Accessory Muscle Use, Wheezes, Respiratory Distress. absent: NORMAL BREATHING PATTERN Additional comments: Intubated - Cardiovascular Exam Cardiovascular Exam: REGULAR RHYTHM, +S1, +S2 - GI/Abdominal Exam GI & Abdominal Exam: Soft. absent: Distended, Firm, Guarding, Hernia - Exam Additional comments: Jc in place: Josiane cloudy color - Extremities Exam Extremities exam: Positive for: pedal pulses present. Negative for: normal inspection - Neurological Exam Neurological exam: Altered - Skin Skin Exam: Dry, Erythema, Intact Results - Vital Signs Recent Vital Signs: Last Vital Signs Temp 98 F 07/04/16 12:00 Pulse 82 07/04/16 14:40 Resp 20 07/04/16 12:00 BP 115/44 L 07/04/16 12:00 Pulse Ox 96 07/04/16 06:00 - Labs Result Diagrams: 07/04/16 06:30 07/04/16 06:30 Labs: Laboratory Results - last 24 hr 07/02/16 07/04/16 07/04/16 06:15 06:30 13:55 WBC 19.4 H D RBC 4.79 Hgb 13.3 L Hct 39.7 L MCV 82.9 MCH 27.8 MCHC 33.5 RDW 14.5 Plt Count 163 MPV 9.6 Neutrophils % (Manual) 83 H Band Neutrophils % 2 Lymphocytes % (Manual) 10 L Monocytes % (Manual) 4 Platelet Evaluation Normal Anisocytosis (manual) Slight pCO2 pO2 HCO3 ABG pH ABG Total CO2 ABG O2 Saturation ABG O2 Content ABG Base Excess ABG Hemoglobin ABG Carboxyhemoglobin POC ABG HHb (Measured) ABG Methemoglobin ABG O2 Capacity Hgb O2 Saturation FiO2 Sodium 143 Potassium 4.1 Chloride 104 Carbon Dioxide 27 Anion Gap 16 BUN 72 H Creatinine 2.1 H Est GFR ( Amer) 37 Est GFR (Non-Af Amer) 30 POC Glucose (mg/dL) 217 H Random Glucose 159 H Calcium 8.5 Total Bilirubin 0.7 AST 203 H ALT 150 H Alkaline Phosphatase 98 Ammonia < 9 L Total Protein 5.9 Albumin 2.8 L Globulin 3.1 Albumin/Globulin Ratio 0.9 L Rheumatoid Factor 16 H Hepatitis A IgM Ab Negative Hep Bs Antigen Negative Hep B Core IgM Ab Negative Hepatitis C Antibody Negative 07/04/16 07/04/16 14:00 14:26 WBC RBC Hgb Hct MCV MCH MCHC RDW Plt Count MPV Neutrophils % (Manual) Band Neutrophils % Lymphocytes % (Manual) Monocytes % (Manual) Platelet Evaluation Anisocytosis (manual) pCO2 78 H* pO2 100.0 HCO3 27.8 ABG pH 7.16 L* ABG Total CO2 30.2 H ABG O2 Saturation 97.7 ABG O2 Content 17.3 ABG Base Excess -2.7 L ABG Hemoglobin 12.9 ABG Carboxyhemoglobin 2.6 H POC ABG HHb (Measured) 2.2 ABG Methemoglobin 0.5 ABG O2 Capacity 17.7 Hgb O2 Saturation 94.8 L FiO2 32.0 Sodium Potassium Chloride Carbon Dioxide Anion Gap BUN Creatinine Est GFR ( Amer) Est GFR (Non-Af Amer) POC Glucose (mg/dL) 144 H Random Glucose Calcium Total Bilirubin AST ALT Alkaline Phosphatase Ammonia Total Protein Albumin Globulin Albumin/Globulin Ratio Rheumatoid Factor Hepatitis A IgM Ab Hep Bs Antigen Hep B Core IgM Ab Hepatitis C Antibody Assessment & Plan - Assessment and Plan (Free Text) Assessment: 80 M with Hypercapnic respiratory failure : vent dependent Acute on chronic kidney injury Sepsis Neuro -Sedation : versed -Fentanyl -Morphine CV: keep AMP 65+ -Levophed/Vasopressin -Lopressor PRN -ASA Pulm: Keep SaO2 90%+ -Wean vent -Aspiration precaution -Elevate head 30degree -Duoneb -Hydrocortisone -repeat ABG GI -PTX -OGT Renal -Jc -replete e-lyte as needed ID Leukocytosis -Keep normothermia -ID on board -Tylenol -Ceftriaxone -Silvadene -Podiatry on board DVT -SCD DW ICU attending. <Loco Villagran - Last Filed: 07/04/16 17:08> Meds - Medications Medications: Current Medications Acetaminophen (Tylenol 325mg Tab) 650 mg PO Q4 PRN PRN Reason: Fever >100.4 F Last Admin: 06/30/16 09:15 Dose: 650 mg Albuterol/Ipratropium (Duoneb 3 Mg/0.5 Mg (3 Ml) Ud) 3 ml IH [id number] PRN PRN Reason: Shortness of Breath Last Admin: 07/04/16 13:58 Dose: 3 ml Alprazolam (Xanax) 0.25 mg PO Q6 PRN; Protocol PRN Reason: Anxiety Stop: 07/11/16 12:01 Aspirin (Aspirin) 325 mg PO DAILY [facility] Last Admin: 07/03/16 11:51 Dose: 325 mg Clotrimazole (Lotrimin 1%) 0 gm TOP BID [facility] Last Admin: 07/04/16 10:57 Dose: 1 applic Heparin Sodium (Porcine) (Heparin) 5,000 units SC Q8 [facility] PRN Reason: Protocol Hydrocortisone Sodium Succinate (Solu-Cortef) 50 mg IVP Q6H [facility] Ceftriaxone Sodium (Rocephin 2 Gm Ivpb) 100 mls @ 100 mls/hr IVPB DAILY [facility] PRN Reason: Protocol Stop: 07/16/16 10:01 Last Admin: 07/04/16 11:02 Dose: 100 mls/hr Fentanyl Citrate (Fentanyl Citrate/Sodium Chloride 1 Mg/100 Ml) 100 mls @ 7.5 mls/hr IV .[id number] PRN; Protocol; 75 MCG/HR PRN Reason: TITRATE PER MD ORDER Norepinephrine Bitartrate 4 mg (/ Dextrose) 254 mls @ 15.24 mls/hr IV .[id number] PRN; Protocol; 4 MCG/MIN PRN Reason: TITRATE PER MD ORDER Vasopressin 20 units/ Sodium (Chloride) 101 mls @ 9.09 mls/hr IV .[id number] SARAH; 0.03 U/MIN PRN Reason: Protocol Vancomycin HCl (Vancomycin 1gm) 250 mls @ 167 mls/hr IVPB STAT STA PRN Reason: Protocol Stop: 07/04/16 17:23 Meropenem 1g/NS 100mL IVPB (Meropenem 1g/Ns 100ml Ivpb) 100 mls @ 100 mls/hr IVPB Q12 [facility]AH PRN Reason: Protocol Stop: 07/04/16 22:59 Metoprolol Tartrate (Lopressor) 25 mg PO BID [facility] Last Admin: 07/03/16 17:55 Dose: 25 mg Midazolam HCl (Versed Inj) 4 mg IVP Q4H PRN PRN Reason: Agitation Morphine Sulfate (Morphine) 1 mg IVP Q4H PRN PRN Reason: Pain, moderate (4-7) Last Admin: 07/04/16 02:22 Dose: 1 mg Pantoprazole Sodium (Protonix Inj) 40 mg IVP DAILY [facility] Silver Sulfadiazine (Silvadene 1% 20 Gm) 0 ea TOP DAILY [facility] Last Admin: 07/04/16 10:59 Dose: 1 applic Results - Vital Signs Recent Vital Signs: Last Vital Signs Temp 98 F 07/04/16 12:00 Pulse 82 07/04/16 14:40 Resp 20 07/04/16 12:00 BP 115/44 L 07/04/16 12:00 Pulse Ox 96 07/04/16 06:00 - Labs Result Diagrams: 07/04/16 16:24 07/04/16 16:24 Labs: Laboratory Results - last 24 hr 07/02/16 07/04/16 07/04/16 06:15 06:30 13:55 WBC 19.4 H D RBC 4.79 Hgb 13.3 L Hct 39.7 L MCV 82.9 MCH 27.8 MCHC 33.5 RDW 14.5 Plt Count 163 MPV 9.6 Gran % Lymph % (Auto) [place] % (Auto) Eos % (Auto) Baso % (Auto) Gran # Lymph # [place] # Eos # Baso # Neutrophils % (Manual) 83 H Band Neutrophils % 2 Lymphocytes % (Manual) 10 L Monocytes % (Manual) 4 Platelet Evaluation Normal Anisocytosis (manual) Slight pCO2 pO2 HCO3 ABG pH ABG Total CO2 ABG O2 Saturation ABG O2 Content ABG Base Excess ABG Hemoglobin ABG Carboxyhemoglobin POC ABG HHb (Measured) ABG Methemoglobin ABG O2 Capacity ABG Potassium VBG pH VBG pCO2 VBG HCO3 VBG Total CO2 VBG O2 Sat (Calc) VBG Base Excess VBG Potassium Hgb O2 Saturation Glucose Lactate Mechanical Rate FiO2 Tidal Volume PEEP Sodium 143 Potassium 4.1 Chloride 104 Carbon Dioxide 27 Anion Gap 16 BUN 72 H Creatinine 2.1 H Est GFR ( Amer) 37 Est GFR (Non-Af Amer) 30 POC Glucose (mg/dL) 217 H Random Glucose 159 H Calcium 8.5 Total Bilirubin 0.7 AST 203 H ALT 150 H Alkaline Phosphatase 98 Ammonia < 9 L Troponin I Total Protein 5.9 Albumin 2.8 L Globulin 3.1 Albumin/Globulin Ratio 0.9 L Arterial Blood Potassium Venous Blood Potassium Rheumatoid Factor 16 H Hepatitis A IgM Ab Negative Hep Bs Antigen Negative Hep B Core IgM Ab Negative Hepatitis C Antibody Negative 07/04/16 07/04/16 07/04/16 14:00 14:26 16:24 WBC 13.7 H D RBC 3.97 Hgb 10.9 L Hct 33.6 L MCV 84.6 MCH 27.5 MCHC 32.4 RDW 14.7 H Plt Count 156 MPV 9.4 Gran % 87.3 H Lymph % (Auto) 8.0 L [place] % (Auto) 4.6 Eos % (Auto) 0.0 L Baso % (Auto) 0.1 Gran # 11.97 H Lymph # 1.1 L [place] # 0.6 Eos # 0.0 Baso # 0.02 Neutrophils % (Manual) Band Neutrophils % Lymphocytes % (Manual) Monocytes % (Manual) Platelet Evaluation Anisocytosis (manual) pCO2 78 H* 47 H pO2 100.0 45 HCO3 27.8 25.4 ABG pH 7.16 L* 7.34 L ABG Total CO2 30.2 H 26.8 ABG O2 Saturation 97.7 99.5 H ABG O2 Content 17.3 ABG Base Excess -2.7 L -0.8 ABG Hemoglobin 12.9 ABG Carboxyhemoglobin 2.6 H POC ABG HHb (Measured) 2.2 ABG Methemoglobin 0.5 ABG O2 Capacity 17.7 ABG Potassium 4.4 VBG pH 7.27 L VBG pCO2 61.0 H VBG HCO3 28.0 VBG Total CO2 29.9 H VBG O2 Sat (Calc) 82.3 H VBG Base Excess -0.3 L VBG Potassium 4.6 Hgb O2 Saturation 94.8 L Glucose 174 H Lactate 1.2 Mechanical Rate 16 FiO2 32.0 21.0 Tidal Volume 450 PEEP 5 Sodium 145 Potassium 4.6 Chloride 108 H Carbon Dioxide 27 Anion Gap 15 BUN 79 H Creatinine 2.3 H Est GFR ( Amer) 33 Est GFR (Non-Af Amer) 27 POC Glucose (mg/dL) 144 H Random Glucose 167 H Calcium 7.9 L Total Bilirubin 0.6 AST 226 H ALT 183 H Alkaline Phosphatase 70 Ammonia Troponin I 1.51 H* D Total Protein 5.2 L Albumin 2.3 L Globulin 2.9 Albumin/Globulin Ratio 0.8 L Arterial Blood Potassium 4.4 Venous Blood Potassium 4.6 Rheumatoid Factor Hepatitis A IgM Ab Hep Bs Antigen Hep B Core IgM Ab Hepatitis C Antibody Addendum Addendum: 07/04/16 17:08 patient was seen and examined at bedside with Dr. Anastacio Johnson. Please see Dr. Villagran note
[2016-07-04] MEDS ORDERED: Midazolam 2 MG/2 ML VIAL IVP PRN (15:41)
--- NOTE | 2016-07-04 15:43 | PN ---
DATE: 07/04/2016 SUBJECTIVE: The patient is lying in bed in no acute distress. He is lethargic, but arousable. OBJECTIVE: VITAL SIGNS: Blood pressure 115/44, temperature 98, pulse 85, respiratory rate 20. LUNGS: Show a few crepitations at the bases. HEART: Regular rate and rhythm. ABDOMEN: Soft, nontender, bowel sounds are normoactive. GENITOURINARY: Indwelling Jc catheter is intact with blood-tinged urine. EXTREMITIES: With 1+ bipedal edema. Wound dressings are intact. NEUROLOGIC: The patient is lethargic, slightly confused, without focal sensory or motor deficits. SKIN: Warm and dry. LABORATORY DATA: WBC is 19.4, hemoglobin 13.3, hematocrit 39.7. Sodium 143, potassium 4.1, chloride 104, CO2 27, BUN 72, creatinine 2.1, glucose 159. IMPRESSION: 1. Hypertension, hypertensive cardiovascular disease, possible congestive heart failure. 2. Acute rhabdomyolysis with acute renal failure superimposed on chronic kidney disease. 3. Chronic venous stasis ulcers of the lower extremities with cellulitis and sepsis. 4. Paroxysmal atrial fibrillation with intermittent rapid ventricular rate. 5. Coronary artery disease. 6. Dementia with superimposed delirium secondary to underlying metabolic derangement. 7. 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 8. Hematuria, probably trauma secondary to Jc catheter. PLAN: Continue medical followup, IV antibiotics. The patient for PICC line placement today. Social work for discharge planning. Leonid Calderón JD, MD cc: [id number] TT: 07/04/2016 15:42:37 Confirmation # [id number] Dictation # [id number] mn
--- NOTE | 2016-07-04 15:52 | RAD ---
HISTORY: intubation , OGT COMPARISON: Earlier same day FINDINGS: LUNGS: The endotracheal and nasogastric tubes are in satisfactory position. There is a left-sided PICC line in the right atrium PLEURA: No significant pleural effusion identified, no pneumothorax apparent. CARDIOVASCULAR: Normal. OSSEOUS STRUCTURES: No significant abnormalities. VISUALIZED UPPER ABDOMEN: Normal. OTHER FINDINGS: None. IMPRESSION: Central lines and tubes in satisfactory position
[2016-07-04] MEDS ORDERED: Vancomycin 1gm in NS 250ml 250 ML IVPB STA (15:54)
[2016-07-04 16:33] LABS: ADD MANUAL DIFF? NO
[2016-07-04 16:36] LABS: BASO # 0.02 K/mm3 (0.0-2.0); BASO % 0.1 % (0.0-3.0); GRAN # 11.97 (1.4-6.5); GRAN % 87.3 % (50.0-68.0); HEMATOCRIT 33.6 % (42.0-52.0); LYMPH # 1.1 (1.2-3.4); MEAN CELL VOLUME 84.6 fL (80.0-105.0); MEAN CORPUSCULAR HEMOGLOBIN 27.5 pg (25.0-35.0); MEAN CORPUSCULAR HGB CONC 32.4 g/dl (31.0-37.0); MEAN PLATELET VOLUME 9.4 fl (7.0-11.0); MONO # 0.6 (0.1-0.6); MONO % 4.6 % (1.0-6.0); PLATELET COUNT 156 10^3/uL (120.0-450.0); RED CELL DISTRIBUTION WIDTH 14.7 % (11.5-14.5); WHITE BLOOD COUNT 13.7 10^3/ul (4.5-11.0)
[2016-07-04 16:38] LABS: ABG MECHANICAL RATE 16; ARTERIAL BLOOD GAS HCO3 25.4 mmol/L (21-28); ARTERIAL BLOOD GAS PH 7.34 (7.35-7.45); ATERIAL BLOOD GAS PEEP 5
[2016-07-04 16:50] LABS: ALB/GLOB RATIO 0.8 (1.1-1.8); BILIRUBIN,TOTAL 0.6 mg/dL (0.2-1.3); CALCIUM 7.9 mg/dL (8.4-10.5); POTASSIUM 4.6 mmol/L (3.6-5.0); TOTAL PROTEIN 5.2 g/dL (5.8-8.3)
[2016-07-04 16:54] LABS: VENOUS BLOOD GAS BASE EXCESS -0.3 mmol/L (0.0-2.0); VENOUS BLOOD PH 7.27 (7.32-7.43)
[2016-07-04] MEDS: Fentanyl 1000mcg/100ml NS 100 ML IV PRN (17:02)
[2016-07-04 17:03] LABS: TROPONIN I 1.51 ng/mL
--- NOTE | 2016-07-04 17:53 | CARD ---
APPROVED REPORT EKG Measurement Heart [id number] <Conclusion> Normal sinus rhythm Right bundle branch block Inferior infarct, age undetermined Abnormal ECG
[2016-07-04] MEDS ORDERED: Heparin25000 units/250ml 1/2NS 250 ML IV SCH (21:15)
[2016-07-04] MEDS: Heparin25000 units/250ml 1/2NS 250 ML IV SCH (21:42)
[2016-07-04] MEDS ORDERED: Meropenem 1g/NS 100mL IVPB 100 ML IVPB SCH (22:00)
--- NOTE | 2016-07-05 03:14 | CON ---
DATE: 07/04/2016 HISTORY OF PRESENT ILLNESS: This is an 80-year-old gentleman with history of dementia, hypertension, who presented to the [facility] on 06/29 (5 days ago) after a fall at home. The patient, however, reportedly did not remember falling. The patient started to have right knee pain after the fall and had difficulty moving his legs. Subsequent workup revealed small joint effusion in the affected knee; however, decision was made to proceed with conservative management as it was pretty minimal. At the same time, he started to develop low-grade fevers and ID service was consulted to rule out severe sepsis. A small joint effusion in the effected knee did not appear to be a source of low-grade fever. The patient was started on broad-spectrum antibiotics and septic workup was sent at that time. Sepsis was attributed to lower extremity skin and skin tissue infection. Meanwhile blood culture came back group G Streptococcus positive and a left foot was also positive for MSSA as well. At the same time, procalcitonin came back highly elevated at 31.55 ( disproportionally higher than the degree of renal insufficiency at that time). Patient maintained relative respiratory and hemodynamical stability. However, today his respiratory status substantially worsened and he developed acute hypercarbic respiratory failure, was emergently transferred to ICU where he was intubated. No nausea, no vomiting, no diarrhea, no constipation. Of note, his echocardiogram was done on 06/30 and showed normal right ventricle and left ventricle. RVSP was 20 mmHg. The patient did get new PICC line today. The patient received 1 mg of Ativan for the procedure. PAST MEDICAL HISTORY: Hypertension, dementia. FAMILY HISTORY: Noncontributory. SOCIAL HISTORY: No alcohol or illicit drug abuse. The patient is a former tobacco smoker. ALLERGIES: NKDA. REVIEW OF SYSTEMS: Revealed 12 organ system other than mentioned in history of present illness is negative. PHYSICAL EXAMINATION: GENERAL: At present time, the patient is intubated, blood pressure 91/38, heart rate 65, oxygen saturation 100% on 100% FIO2. His setting is 450/16/5. HEAD AND NECK: Atraumatic. LUNGS: Clear to auscultation bilaterally. HEART: Regular rate and rhythm. S1, S2 normal. ABDOMEN: Soft, nontender, nondistended. MUSCULOSKELETAL: No C/C/E; however, there is some acute cellulitic changes on both lower extremities. SKIN: Color moist with signs of acute cellulitis. PSYCHIATRIC: The patient is sedated for the intubation. LABORATORY DATA: WBC 19.4, hemoglobin 13.3, platelet count 163. Sodium 143, potassium 4.1, chloride 104, carbon dioxide 27, BUN 72, creatinine 2.1, up from 1.7, glucose 159. AST 203, ALT 150, ammonia level less than 9, albumin 2.8. ProBNP 9350. INR 1.12, ABG prior to intubation showed 7.16, pCO2 78, pO2 132% FIO2. Vancomycin as of 2 days ago 15.7. MEDICATIONS: Aspirin, DuoNeb p.r.n., metoprolol 25 mg p.o. b.i.d., now held, topical lotrimin cream, morphine p.r.n., ceftriaxone, Xanax p.r.n., Tylenol p.r.n. Chest x-ray: No acute pulmonary disease. An NG tube and endotracheal tube is in the right position. Microbiology positive for blood culture and group G streptococcus in the blood and culture from the left foot positive for MSSA. The patient is on ceftriaxone. ASSESSMENT AND PLAN: This is an 80-year-old gentleman with severe sepsis secondary to bilateral cellulitis complicated by multiorgan system failure including acute kidney injury, transaminitis, acute hypercapnic respiratory failure, acute kidney injury and gram-positive bacteremia. 1. Neurologic: The patient is sedated, will proceed with fentanyl drip and Ativan p.r.n. He has underlying dementia. Thus, he is at risk for developing ICU delirium, especially in the setting of critical illness. We will proceed with sedation vacation, pain control, optimizing his sleep and circadian rhythms. 2. Pulmonary: At present time, we will avoid hyperventilation and overcorrection of acute respiratory acidosis. ABG will be done in 1 hour and will be followed. We will also at the same time proceed with protective lung ventilation strategy to avoid ventilator-induced lung injury. The patient is borderline hypotensive, thus he requires fluid resuscitation. Once his hemodynamics improve, we will proceed with conservative fluid management. We will continue with head of bed elevated more than 35 degrees. VAP bundle. Deep venous thrombosis and gastrointestinal prophylaxis. Pulmonary toilet and bronchodilators. 3. Cardiovascular: Patient has septic shock. Will start NE, vasopressin, stress dose steroids. We will proceed with POCUS. The echocardiogram performed 4 days ago did not show significant left or right ventricular dysfunction. 4. Infectious Disease: The patient has septic shock secondary to lower extremity cellulitis. We will repeat procalcitonin. I would empirically upgraded his antibiotics pending infectious disease service input. I would repeat blood, urine and sputum culture. 5. Endocrine: We will maintain blood glucose within 140-180 range. 6. Renal: The patient's acute kidney injury is worsening. We will continue with fluid resuscitation, treating his severe sepsis and stricter glucose control for additional nephro protection. We will avoid nephrotoxic medication ; however, not in expense of treating underlying disease. 7. Gastrointestinal: We will start patient on enteral nutrition. Nasogastric tube is in the right position. Gastrointestinal prophylaxis. ccm time 40 min Loco Villagran MD cc: [id number] TT: 07/05/2016 03:14:05 Confirmation # [id number] Dictation # [id number] tn MTDD
[2016-07-05] MEDS: Fentanyl 1000mcg/100ml NS 100 ML IV PRN (03:31)
--- NOTE | 2016-07-05 03:42 | CP.PCM.PCO ---
Physician Communication Note - Physician Communication Note Physician Communication Note: Because of a trop inc overnight (1.51-->3.37), Heparin Drip was started
[2016-07-05 05:31] LABS: ARTERIAL BLOOD GAS HCO3 25.4 mmol/L (21-28); ARTERIAL BLOOD GAS O2 CAPACITY 15.4 mL/dl (16-24); ARTERIAL BLOOD GAS O2 CONTENT 15.2 ML/dl (15-23); ARTERIAL BLOOD GAS PH 7.38 (7.35-7.45); ARTERIAL BLOOD HGB O2 SAT 96.6 % (95.0-98.0); CARBOXYHEMOGLOBIN 1.8 % (0.5-1.5); HHB 1.2 % (0-5); METHEMOGLOBIN 0.4 % (0.0-3.0)
[2016-07-05 05:46] LABS: HEMATOCRIT 33.6 % (42.0-52.0); MEAN CELL VOLUME 83.8 fL (80.0-105.0); MEAN CORPUSCULAR HEMOGLOBIN 27.7 pg (25.0-35.0); MEAN PLATELET VOLUME 9.4 fl (7.0-11.0); RED CELL DISTRIBUTION WIDTH 14.8 % (11.5-14.5); WHITE BLOOD COUNT 12.8 10^3/ul (4.5-11.0)
[2016-07-05 06:08] LABS: ALB/GLOB RATIO 0.9 (1.1-1.8); BILIRUBIN,TOTAL 0.5 mg/dL (0.2-1.3); CALCIUM 8.1 mg/dL (8.4-10.5); POTASSIUM 4.2 mmol/L (3.6-5.0); TOTAL PROTEIN 5.3 g/dL (5.8-8.3)
[2016-07-05] MEDS: Albuterol-Ipratrop 3 mg / 0.5 (3 ml) UD IH SCH ×3 (07:21→20:22)
--- NOTE | 2016-07-05 08:32 | CP.PCM.PN ---
Subjective - Date & Time of Evaluation Date of Evaluation: 07/05/16 Time of Evaluation: 08:00 - Subjective Subjective: Intubated in ICU now. Sedated. Events of yesterday afternoon noted. Resp. failure after PICC line insertion and IV Ativan. V/S noted. RSR/S. Tachy. Multiple drips. PE: Lungs: rhonchi Cor.: S1S2 Abd.: soft Ext.: no edema Neuro.: sedaeted I/O=[id number] Labs noted: Na+= 149, K+= 4.2, Cr.= 2.0. Trop 07/04: 3.37 BC x1 + Grp G Strep. Several BCs are NG. Wound C+S: Staph aur. ECG 07/04: RSR, RBBB, IMI, ST changes. No change Echo: Nl LV fx with mild conc. LVH, no veg. seen. See report. CXR 07/04 and : noted Objective - Vital Signs/Intake and Output Vital Signs (last 24 hours): Temp Pulse Resp BP Pulse Ox 99.1 F 66 29 H 157/73 H 100 07/05/16 06:00 07/05/16 06:45 07/05/16 07:34 07/05/16 06:45 07/05/16 07:34 Intake and Output: 07/05/16 07/05/16 06:59 18:59 Intake Total 712 Output Total 1251 Balance -539 - Medications Medications: Current Medications Acetaminophen (Tylenol 325mg Tab) 650 mg PO Q4 PRN PRN Reason: Fever >100.4 F Last Admin: 06/30/16 09:15 Dose: 650 mg Albuterol/Ipratropium (Duoneb 3 Mg/0.5 Mg (3 Ml) Ud) 3 ml IH [id number] [facility] Last Admin: 07/05/16 07:21 Dose: 3 ml Alprazolam (Xanax) 0.25 mg PO Q6 PRN; Protocol PRN Reason: Anxiety Stop: 07/11/16 12:01 Aspirin (Aspirin) 325 mg PO DAILY [facility] Last Admin: 07/04/16 19:04 Dose: 325 mg Clotrimazole (Lotrimin 1%) 0 gm TOP BID [facility] Last Admin: 07/04/16 10:57 Dose: 1 applic Hydrocortisone Sodium Succinate (Solu-Cortef) 50 mg IVP Q6H SARAH Last Admin: 07/05/16 03:37 Dose: 50 mg Ceftriaxone Sodium (Rocephin 2 Gm Ivpb) 100 mls @ 100 mls/hr IVPB DAILY SARAH PRN Reason: Protocol Stop: 07/16/16 10:01 Last Admin: 07/04/16 11:02 Dose: 100 mls/hr Fentanyl Citrate (Fentanyl Citrate/Sodium Chloride 1 Mg/100 Ml) 100 mls @ 7.5 mls/hr IV .[id number] PRN; Protocol; 75 MCG/HR PRN Reason: TITRATE PER MD ORDER Last Admin: 07/05/16 03:31 Dose: 7.5 mls/hr Norepinephrine Bitartrate 4 mg (/ Dextrose) 254 mls @ 15.24 mls/hr IV .[id number] PRN; Protocol; 4 MCG/MIN PRN Reason: TITRATE PER MD ORDER Last Admin: 07/04/16 17:06 Dose: 15.24 mls/hr Vasopressin 20 units/ Sodium (Chloride) 101 mls @ 9.09 mls/hr IV .[id number] SARAH; 0.03 U/MIN PRN Reason: Protocol Last Admin: 07/05/16 04:00 Dose: 9.09 mls/hr Heparin Sodium/Sodium Chloride (Heparin 15209 Units/250ml 1/2 Normal Saline) 250 mls @ 13.63 mls/hr IV .[id number] SARAH; 12 UNITS/KG/HR PRN Reason: Protocol Last Titration: 07/05/16 05:30 Dose: 9 units/kg/hr Dextrose (Dextrose 5% In Water 1000 Ml) 1,000 mls @ 100 mls/hr IV .Q10H SARAH Stop: 07/06/16 03:59 Metoprolol Tartrate (Lopressor) 25 mg PO BID [facility] Last Admin: 07/03/16 17:55 Dose: 25 mg Midazolam HCl (Versed Inj) 4 mg IVP Q4H PRN PRN Reason: Agitation Morphine Sulfate (Morphine) 1 mg IVP Q4H PRN PRN Reason: Pain, moderate (4-7) Last Admin: 07/04/16 02:22 Dose: 1 mg Pantoprazole Sodium (Protonix Inj) 40 mg IVP DAILY [facility] Last Admin: 07/04/16 17:26 Dose: 40 mg Silver Sulfadiazine (Silvadene 1% 20 Gm) 0 ea TOP DAILY [facility] Last Admin: 07/04/16 10:59 Dose: 1 applic - Labs Labs: 07/05/16 05:30 07/05/16 05:30 PT 12.1 Seconds (9.9-11.8) H 07/02/16 06:15 INR 1.12 (0.93-1.08) H 07/02/16 06:15 APTT 118.3 Seconds (23.7-30.8) H* 07/05/16 03:45 Assessment and Plan - Assessment and Plan (Free Text) Plan: Assessment: Respiratory failure following PICC line and IV Ativan. R/O HI. Fall at home, details unknown/Right Knee Pain Acute rhabdo., improving Acute renal failure, improving Initial + trop in setting of acute on chronic kidney disease and acute rhabdo., probably not acute HI Sepsis/Grp G strept bacteremia PAF Cellulitis Dementia HBP RBBB IMI on ECG, probbably old Former Smoker Renal Stones Cataracts Diminished hearing Plan: AB, as per ID, Intensivists, Dr. Last, Dr. Calderón PO > IV metoprolol Monitor: I/O, labs, Renal fx., cultures, sats., CK's, etc Wean drips and vent as able.
--- NOTE | 2016-07-05 08:43 | RAD ---
HISTORY: intubated COMPARISON: 07/04/2016 FINDINGS: The endotracheal tube terminates in the proximal trachea. The nasogastric tube terminates in the stomach. The left PICC line terminates in the SVC. LUNGS: The lungs are clear. PLEURA: No significant pleural effusion identified, no pneumothorax apparent. CARDIOVASCULAR: Normal. OSSEOUS STRUCTURES: No significant abnormalities. VISUALIZED UPPER ABDOMEN: Normal. OTHER FINDINGS: None. IMPRESSION: Stable position of line and tubes. No active pulmonary disease.
[2016-07-05] MEDS: Metoprolol 1 mg/ml Inj IV SCH ×2 (09:27→18:01)
[2016-07-05] MEDS: Meropenem 1g/NS 100mL IVPB 100 ML IVPB SCH ×2 (09:31→22:02)
--- NOTE | 2016-07-05 10:22 | PN ---
DATE: 07/05/2016 SUBJECTIVE: The patient is intubated and sedated on a fentanyl drip. The patient's events from yest erday were noted. PHYSICAL EXAMINATION: VITAL SIGNS: Temperature is 99.1, pulse of 66, blood pressure 157/73, respirations 24. GENERAL: The patient comfortable, in no acute distress. HEENT: Anicteric sclerae. Moist mucosa. NECK: Positive for endotracheal tube. No JVD or adenopathy. CARDIAC: S1/S2. No murmurs. No rubs. Regular. RESPIRATORY: Clear to auscultation bilaterally. No wheezes, rales, or rhonchi. Good air entry. ABDOMEN: Bowel sounds are positive, soft, nontender, and nondistended. EXTREMITIES: No edema. Has 1+ pulses. In the left arm, left PICC line. LABORATORY DATA: White count of 12.8, hemoglobin 11.1. Sodium is 149, creatinine is 2.0. Chest x-ray shows central line and tubes in satisfactory position. Chest x-ray before that shows no acute infiltrates. There is linear atelectasis at the left base. ASSESSMENT: 1. Septic shock. 2. Acute kidney injury secondary to rhabdomyolysis. 3. Delirium. 4. Proteinuria 2 grams per day. 5. Paroxysmal atrial fibrillation. 6. Right knee pain secondary to degenerative joint disease. 7. Obesity with a body mass index of 37. 8. Hypophosphatemia, resolved. 9. Hyperphosphatemia secondary to acute kidney injury. 10. Hypernatremia. 11. Non-ST elevation myocardial infarction. 12. Left foot wound with Staphylococcus aureus. 13. Hematuria. PLAN: The patient is currently admitted to the hospital. He became hypotensive yesterday. He was t ransferred to the ICU. He was placed on pressors with Levophed and vasopressin. He is on Solu-Osei ef for his sepsis. The patient is on Xanax as needed. He is receiving morphine for pain as needed. He is on a heparin drip for his anticoagulation. The patient was having hematuria because of a Fole y. We will need to continue to follow that closely. The patient is on aspirin as well because of hi s non-ST elevation NE. He is being followed by multiple consultants. Overall, prognosis is guarded. He is a full code. This morning, his clinical status is more stable. Creatinine continues to impr ove. It is 2.0 this morning. The patient's sodium is elevated. We will need to give more free wate r. Currently, he is not on IV fluids. We will place him on IV fluids. I did speak to the patient's yesterday to give her an update. I will speak to her again this morning to give her an update. Kolby Last MD cc: [id number] TT: 07/05/2016 10:22:24 Confirmation # [id number] Dictation # [id number] tn
[2016-07-05] MEDS: Clotrimazole 1% Cream(30 gm) TOP SCH ×2 (10:40→18:01)
[2016-07-05] MEDS: Silver Sulfadiazine 1% Cream (20 gm) TOP SCH (10:40)
--- NOTE | 2016-07-05 11:12 | CON ---
DATE: 07/05/2016 PULMONARY CONSULTATION REASON FOR CONSULTATION: Respiratory failure. REFERRING PHYSICIAN: Kolby Last MD. History is obtained via extensive discussion with the ICU staff. I have also reviewed the chart at length. The patient is currently intubated and sedated. The patient is an 80-year-old male with past medical history significant for hypertension, dementia, chronic obstructive pulmonary disease, who originally presented to the hospital - on 06/29/16 - after falling at home. On admission, initial work up and laboratory evaluation were consistent with acute rhabdomyolysis, along with acute renal insufficiency. The patient was, thus, admitted for additional evaluation. Again, I did discuss the case with the ICU staff at length. Apparently, shortly after the PICC line insertion, the patient was found to be lethargic ( by the nurses on telemetry). Arterial blood gas was then done - and showed an acute respiratory acidosis. The patient was initially placed on BiPAP and transferred to the medical ICU. I did review the note by Dr. Villagran ( wafer machine operator). The patient remained lethargic on presentation to the ICU. He was, subsequently, intubated for airway protection and ventilation. I am, thus , asked to evaluate on this case for additional ventilator management. Again, I did discuss the case with the ICU staff at length. I have also reviewed the notes by the telemetry nurse. Again, after returning from the PICC line insertion, the patient was noted to be lethargic,short of breath and with oxygen desaturation. There is no history of cough or sputum production. There is no history of chest pain, coughing up of blood, or chest pain - made worse with deep respirations. There have been temperatures throughout the patient's hospital stay. Fortunately, the temperatures have been resolving over the past 1-2 days. No history of chills or infectious exposure. No history of night sweats, weight loss, or appetite change prior to the above events. No history of calf pains. No history of true syncope. No history of recent travel or trauma. REVIEW OF SYSTEMS: No history of nausea, vomiting, or diarrhea. No acute urinary symptoms. The rest of the review of systems is negative. ALLERGIES: No known allergies. SOCIAL HISTORY: Positive for tobacco, negative for alcohol. FAMILY HISTORY: No inheritable diseases. HOME MEDICATIONS: Include Cozaar and Lasix. PHYSICAL EXAMINATION: GENERAL: The patient is currently intubated and sedated. VITAL SIGNS: Temperature is 99.1, pulse 58, respirations 16/16, blood pressure 131/48. HEENT: Normocephalic, atraumatic. NECK: No JVD. CARDIOVASCULAR: Systolic ejection murmur at the lower left sternal border. No S3 gallop. LUNGS: Decreased breath sounds at the bases. Minimal bilateral rhonchi. No wheezing. EXTREMITIES: Mild edema. No cyanosis, no clubbing. GASTROINTESTINAL: Abdomen is soft, nondistended. Bowel sounds are positive. SKIN: Reveals evidence of cellulitis on both legs (anterior aspects). NEUROLOGIC: Limited at the present time. PERTINENT LABORATORY DATA: Chest x-ray was done this morning and reviewed. It is very poor, very rotated film. There is a small consolidation noted at the left base. I do not appreciate any other significant infiltrates. Arterial blood gas was done on assist control 16, tidal volume 450, FiO2 of 50% . Results are: pH 7.38, pCO2 of 43, pO2 of 105. Peak troponin 3.37. Complete metabolic profile: Sodium 149, BUN 87, creatinine 2.0. Glucose 196. AST 171, ALT 171, total protein 5.3, albumin 2.5. The rest of the metabolic profile is within normal limits. CBC: White count 12.8, hemoglobin 11.1, hematocrit 33.6, platelets of 191. Arterial blood gas done prior to intubation: pH 7.16, pCO2 of 78, pO2 of 100. IMPRESSION: 1. Hypercarbic respiratory failure. 2. Severe sepsis. 3. Rule out pneumonia - left base. 4. Bilateral cellulitis. 5. Chronic obstructive pulmonary disease. 6. Renal insufficiency. 7. Acute myocardial infarction. 8. Mild anemia. PLAN: I did discuss the case with the ICU staff at length. I have also reviewed the chart at length. Apparently, the patient was initially admitted to [facility] - on 06/29/16 - after falling at home. As above, initial evaluation was consistent with acute rhabdomyolysis and worsening renal dysfunction. The patient was, thus, admitted for additional evaluation. I have also reviewed the notes by the telemetry nurse. Apparently, after the PICC line insertion, the patient was found to be short of breath,lethargic and with oxygen desaturation. Arterial blood gas then revealed an acute respiratory acidosis. The patient was, subsequently, intubated in the ICU. I have also reviewed the note by Dr. Villagran. I did review the x-ray from today. The x-ray is a very poor rotated portable film. There is a small consolidation at the left base. This consolidation was seen on previous films. I have also reviewed the arterial blood gas. The arterial blood gas is much improved with normalization of the pH and a decrease in the alveolar arterial gradient. I will discuss weaning procedures with the ICU team in the next few moments. On physical exam, there is no significant bronchospasm noted. The patient does have a long history of chronic obstructive pulmonary disease. I will change to scheduled nebulizer treatments at this point in time. I would continue with the antibiotic coverage, as per infectious disease. Input by Dr. Mueller is noted. Temperatures are resolving. The leukocytosis is also resolving. Lastly, rising troponin is noted. I would continue with the cardiology evaluation, as per Dr. Olmedo. Repeat labs and x-ray are ordered and will be followed. The patient is critically ill at the present time with a very guarded prognosis. I will discuss the above with the entire ICU team in the next few moments. I will also discuss the above with Dr. Last. Thank you very much for this pulmonary consultation. Ken Mancini MD cc: [id number] TT: 07/05/2016 11:11:46 Confirmation # [id number] Dictation # [id number] CODY
--- NOTE | 2016-07-05 11:45 | CP.CCUPN ---
<Pippa Tineo - Last Filed: 07/05/16 12:30> CCU Subjective - Physician Review Events Since Last Encounter (Free Text): 07/05/16 11:45 Patient seen and examined bedside. No acute events overnight. Patient tolerated PS trial this morning, was successfully extubated this morning. Denies CP, Abd pain, n/v. Patient able to cough and protect airway s/p extubation thus far. Critical Care Time Spent (in minutes): 40 CCU Objective - Vital Signs / Intake & Output Vital Signs (Last 4 hours): Vital Signs BP 07/05/16 09:27 183/76 H Intake and Output (Last 8hrs): Intake & Output 07/04/16 07/05/16 07/05/16 22:59 06:59 14:59 Intake Total 265 447 Output Total 251 1000 Balance 14 -553 Weight 250 lb 6.4 oz Intake: IV 265 447 Left Forearm 15 183 Left Upper arm 184 right antecubital 250 80 Oral 0 Output: Urine 251 1000 Urine, Voided 1 Urethral (Jc) 250 1000 Other: Voiding Method Indwelling Catheter # Bowel Movements 0 - Physical Exam Head: Positive for: Atraumatic, Normocephalic. Negative for: Abrasion, Laceration Pupils: Positive for: PERRL Extroacular Muscles: Positive for: EOMI. Negative for: Entrapment Conjunctiva: Positive for: Normal. Negative for: Injected Mouth: Positive for: Moist Mucous Membranes Respiratory/Chest: Positive for: Clear to Auscultation, Good Air Exchange, Tachypneic. Negative for: Respiratory Distress, Accessory Muscle Use Cardiovascular: Positive for: Regular Rate and Rhythm, Normal S1, S2. Negative for: Murmurs Abdomen: Positive for: Normal Bowel Sounds. Negative for: Tenderness, Distention, Peritoneal Signs Upper Extremity: Positive for: Normal Inspection, NORMAL PULSES, Neurovascularly Intact. Negative for: Cyanosis, Edema Lower Extremity: Positive for: Normal Inspection, Tenderness, Neurovascularly Intact, Other (abrasion right wright, chronic venous stasis changes foot and ankle B/L). Negative for: Edema, NORMAL PULSES (diminished PT and DP pulse B/L) , Swelling, Deformity Neurological: Positive for: GCS=15, CN II-XII Intact Skin: Positive for: Warm, Dry, Abrasion Psychiatric: Positive for: Alert, Oriented x 3 - Medications Active Medications: Active Medications Generic Name Dose Route Start Last Admin Trade Name Freq PRN Reason Stop Dose Admin Acetaminophen 650 mg 06/29/16 11:33 06/30/16 09:15 Tylenol 325mg Tab PO 650 mg Q4 PRN Administration Fever >100.4 F Albuterol/Ipratropium 3 ml 07/05/16 08:00 07/05/16 07:21 Duoneb 3 Mg/0.5 Mg (3 Ml) Ud IH 3 ml [id number] SARAH Administration Alprazolam 0.25 mg 07/04/16 08:42 Xanax PO 07/11/16 12:01 Q6 PRN Anxiety Protocol Aspirin 325 mg 07/02/16 10:00 07/05/16 10:32 Aspirin PO Not Given DAILY SARAH Clotrimazole 0 gm 06/29/16 18:00 07/05/16 10:40 Lotrimin 1% TOP 1 applic BID SARAH Administration Hydrocortisone Sodium Succinate 50 mg 07/04/16 15:45 07/05/16 09:26 Solu-Cortef IVP 50 mg Q6H SARAH Administration Fentanyl Citrate 100 mls @ 7.5 mls/hr 07/04/16 15:41 07/05/16 03:31 Fentanyl Citrate/Sodium Chloride 1 Mg/100 Ml IV 7.5 mls/hr .[id number] PRN Administration TITRATE PER MD ORDER Protocol 75 MCG/HR Norepinephrine Bitartrate 4 mg 254 mls @ 15.24 mls/hr 07/04/16 15:42 07/04/16 17:06 / Dextrose IV 15.24 mls/hr .[id number] PRN Administration TITRATE PER MD ORDER Protocol 4 MCG/MIN Vasopressin 20 units/ Sodium 101 mls @ 9.09 mls/hr 07/04/16 15:45 07/05/16 04: 00 Chloride IV 9.09 mls/hr .[id number] SARAH Administration Protocol 0.03 U/MIN Heparin Sodium/Sodium Chloride 250 mls @ 13.63 mls/hr 07/04/16 21:30 07/05/16 05:30 Heparin 14410 Units/250ml 1/2 Normal Saline IV 9 units/kg/hr .[id number] SARAH Titration Protocol 12 UNITS/KG/HR Dextrose 1,000 mls @ 100 mls/hr 07/05/16 08:00 03/28/17 08:50 Dextrose 5% In Water 1000 Ml IV 07/06/16 03:59 100 mls/hr .Q10H SARAH Administration Meropenem 1g/NS 100mL IVPB 100 mls @ 100 mls/hr 07/05/16 08:30 07/05/16 09:31 Meropenem 1g/Ns 100ml Ivpb IVPB 07/12/16 08:31 100 mls/hr Q12 SARAH Administration Protocol Metoprolol Tartrate 2.5 mg 07/05/16 09:00 07/05/16 09:27 Lopressor IV 2.5 mg Q8H SARAH Administration Midazolam HCl 4 mg 07/04/16 15:41 Versed Inj IVP Q4H PRN Agitation Morphine Sulfate 1 mg 06/29/16 12:41 07/04/16 02:22 Morphine IVP 1 mg Q4H PRN Administration Pain, moderate (4-7) Pantoprazole Sodium 40 mg 07/04/16 16:00 07/05/16 09:26 Protonix Inj IVP 40 mg DAILY SARAH Administration Silver Sulfadiazine 0 ea 07/02/16 10:00 07/05/16 10:40 Silvadene 1% 20 Gm TOP 1 applic DAILY SARAH Administration - Patient Studies Lab Studies: Microbiology Studies 06/30/16 15:50 Blood Culture - Preliminary Blood-Venous NO GROWTH AFTER 4 DAYS 06/30/16 15:30 Blood Culture - Preliminary Blood-Venous NO GROWTH AFTER 4 DAYS Lab Studies 07/05/16 07/05/16 07/05/16 Range/Units 07:00 05:30 05:15 WBC 12.8 H (4.5-11.0) 10^3/ul RBC 4.01 (3.5-6.1) 10^6/uL Hgb 11.1 L (14.0-18.0) gm/dL Hct 33.6 L (42.0-52.0) % MCV 83.8 (80.0-105.0) fL MCH 27.7 (25.0-35.0) pg MCHC 33.0 (31.0-37.0) g/dl RDW 14.8 H (11.5-14.5) % Plt Count 191 (120.0-450.0) 10^3/uL MPV 9.4 (7.0-11.0) fl Gran % (50.0-68.0) % Lymph % (Auto) (22.0-35.0) % [place] % (Auto) (1.0-6.0) % Eos % (Auto) (1.5-5.0) % Baso % (Auto) (0.0-3.0) % Gran # (1.4-6.5) Lymph # (1.2-3.4) [place] # (0.1-0.6) Eos # (0.0-0.7) Baso # (0.0-2.0) K/mm3 APTT (23.7-30.8) Seconds pCO2 43 (35-45) mm/Hg pO2 105.0 H (80-100) mm/Hg HCO3 25.4 (21-28) mmol/L ABG pH 7.38 (7.35-7.45) ABG Total CO2 26.7 (22-28) mmol.L ABG O2 Saturation 98.8 H (95-98) % ABG O2 Content 15.2 (15-23) ML/dl ABG Base Excess 0.1 (-2.0-3.0) mmol/L ABG Hemoglobin 11.1 L (11.7-17.4) g/dL ABG Carboxyhemoglobin 1.8 H (0.5-1.5) % POC ABG HHb (Measured) 1.2 (0-5) % ABG Methemoglobin 0.4 (0.0-3.0) % ABG O2 Capacity 15.4 L (16-24) mL/dl ABG Potassium (3.6-5.2) mmol/L VBG pH (7.32-7.43) VBG pCO2 (40-60) VBG HCO3 (21-28) mmol/l VBG Total CO2 (22-28) mmol.L VBG O2 Sat (Calc) (40-65) % VBG Base Excess (0.0-2.0) mmol/L VBG Potassium (3.6-5.2) mmol/L Hgb O2 Saturation 96.6 (95.0-98.0) % Glucose (75-110) mg/dl Lactate (0.7-2.1) mmol/L Mechanical Rate FiO2 50.0 % Tidal Volume PEEP Sodium 149 H (132-148) mmol/L Potassium 4.2 (3.6-5.0) mmol/L Chloride 110 (95-110) mmol/L Carbon Dioxide 27 (21-33) mmol/L Anion Gap 16 (10-20) BUN 87 H (7-21) mg/dL Creatinine 2.0 H (0.5-1.4) mg/dL Est GFR ( Amer) 39 Est GFR (Non-Af Amer) 32 POC Glucose (mg/dL) (65-110) mg/dL Random Glucose 196 H (70-110) mg/dL Calcium 8.1 L (8.4-10.5) mg/dL Total Bilirubin 0.5 (0.2-1.3) mg/dL AST 171 H (15-59) U/L ALT 171 H (7-56) U/L Alkaline Phosphatase 72 (38-133) U/L Troponin I 5.25 H* D ng/mL Total Protein 5.3 L (5.8-8.3) g/dL Albumin 2.5 L (3.0-4.8) g/dL Globulin 2.8 gm/dL Albumin/Globulin Ratio 0.9 L (1.1-1.8) Procalcitonin (0.19-0.49) NG/ML Arterial Blood Potassium (3.6-5.2) mmol/L Venous Blood Potassium (3.6-5.2) mmol/L JOSEFA Screen (Negative) JOSEFA Titer JOSEFA Titer 2 JOSEFA Pattern JOSEFA Pattern 2 07/05/16 07/04/16 07/04/16 Range/Units 03:45 21:30 19:50 WBC (4.5-11.0) 10^3/ul RBC (3.5-6.1) 10^6/uL Hgb (14.0-18.0) gm/dL Hct (42.0-52.0) % MCV (80.0-105.0) fL MCH (25.0-35.0) pg MCHC (31.0-37.0) g/dl RDW (11.5-14.5) % Plt Count (120.0-450.0) 10^3/uL MPV (7.0-11.0) fl Gran % (50.0-68.0) % Lymph % (Auto) (22.0-35.0) % [place] % (Auto) (1.0-6.0) % Eos % (Auto) (1.5-5.0) % Baso % (Auto) (0.0-3.0) % Gran # (1.4-6.5) Lymph # (1.2-3.4) [place] # (0.1-0.6) Eos # (0.0-0.7) Baso # (0.0-2.0) K/mm3 APTT 118.3 H* (23.7-30.8) Seconds pCO2 (35-45) mm/Hg pO2 (80-100) mm/Hg HCO3 (21-28) mmol/L ABG pH (7.35-7.45) ABG Total CO2 (22-28) mmol.L ABG O2 Saturation (95-98) % ABG O2 Content (15-23) ML/dl ABG Base Excess (-2.0-3.0) mmol/L ABG Hemoglobin (11.7-17.4) g/dL ABG Carboxyhemoglobin (0.5-1.5) % POC ABG HHb (Measured) (0-5) % ABG Methemoglobin (0.0-3.0) % ABG O2 Capacity (16-24) mL/dl ABG Potassium (3.6-5.2) mmol/L VBG pH (7.32-7.43) VBG pCO2 (40-60) VBG HCO3 (21-28) mmol/l VBG Total CO2 (22-28) mmol.L VBG O2 Sat (Calc) (40-65) % VBG Base Excess (0.0-2.0) mmol/L VBG Potassium (3.6-5.2) mmol/L Hgb O2 Saturation (95.0-98.0) % Glucose (75-110) mg/dl Lactate (0.7-2.1) mmol/L Mechanical Rate FiO2 % Tidal Volume PEEP Sodium (132-148) mmol/L Potassium (3.6-5.0) mmol/L Chloride (95-110) mmol/L Carbon Dioxide (21-33) mmol/L Anion Gap (10-20) BUN (7-21) mg/dL Creatinine (0.5-1.4) mg/dL Est GFR ( Amer) Est GFR (Non-Af Amer) POC Glucose (mg/dL) 203 H (65-110) mg/dL Random Glucose (70-110) mg/dL Calcium (8.4-10.5) mg/dL Total Bilirubin (0.2-1.3) mg/dL AST (15-59) U/L ALT (7-56) U/L Alkaline Phosphatase (38-133) U/L Troponin I 3.37 H* D ng/mL Total Protein (5.8-8.3) g/dL Albumin (3.0-4.8) g/dL Globulin gm/dL Albumin/Globulin Ratio (1.1-1.8) Procalcitonin (0.19-0.49) NG/ML Arterial Blood Potassium (3.6-5.2) mmol/L Venous Blood Potassium (3.6-5.2) mmol/L JOSEFA Screen (Negative) JOSEFA Titer JOSEFA Titer 2 JOSEFA Pattern JOSEFA Pattern 2 07/04/16 07/04/16 07/04/16 Range/Units 16:58 16:24 14:26 WBC 13.7 H D (4.5-11.0) 10^3/ul RBC 3.97 (3.5-6.1) 10^6/uL Hgb 10.9 L (14.0-18.0) gm/dL Hct 33.6 L (42.0-52.0) % MCV 84.6 (80.0-105.0) fL MCH 27.5 (25.0-35.0) pg MCHC 32.4 (31.0-37.0) g/dl RDW 14.7 H (11.5-14.5) % Plt Count 156 (120.0-450.0) 10^3/uL MPV 9.4 (7.0-11.0) fl Gran % 87.3 H (50.0-68.0) % Lymph % (Auto) 8.0 L (22.0-35.0) % [place] % (Auto) 4.6 (1.0-6.0) % Eos % (Auto) 0.0 L (1.5-5.0) % Baso % (Auto) 0.1 (0.0-3.0) % Gran # 11.97 H (1.4-6.5) Lymph # 1.1 L (1.2-3.4) [place] # 0.6 (0.1-0.6) Eos # 0.0 (0.0-0.7) Baso # 0.02 (0.0-2.0) K/mm3 APTT (23.7-30.8) Seconds pCO2 47 H (35-45) mm/Hg pO2 366.0 H (80-100) mm/Hg HCO3 25.4 (21-28) mmol/L ABG pH 7.34 L (7.35-7.45) ABG Total CO2 26.8 (22-28) mmol.L ABG O2 Saturation 99.5 H (95-98) % ABG O2 Content (15-23) ML/dl ABG Base Excess -0.8 (-2.0-3.0) mmol/L ABG Hemoglobin (11.7-17.4) g/dL ABG Carboxyhemoglobin (0.5-1.5) % POC ABG HHb (Measured) (0-5) % ABG Methemoglobin (0.0-3.0) % ABG O2 Capacity (16-24) mL/dl ABG Potassium 4.4 (3.6-5.2) mmol/L VBG pH 7.27 L (7.32-7.43) VBG pCO2 61.0 H (40-60) VBG HCO3 28.0 (21-28) mmol/l VBG Total CO2 29.9 H (22-28) mmol.L VBG O2 Sat (Calc) 82.3 H (40-65) % VBG Base Excess -0.3 L (0.0-2.0) mmol/L VBG Potassium 4.6 (3.6-5.2) mmol/L Hgb O2 Saturation (95.0-98.0) % Glucose 167 H (75-110) mg/dl Lactate 1.2 (0.7-2.1) mmol/L Mechanical Rate 16 FiO2 100.0 % Tidal Volume 450 PEEP 5 Sodium 145.0 (132-148) mmol/L Potassium 4.6 (3.6-5.0) mmol/L Chloride 116.0 H (95-110) mmol/L Carbon Dioxide 27 (21-33) mmol/L Anion Gap 15 (10-20) BUN 79 H (7-21) mg/dL Creatinine 2.3 H (0.5-1.4) mg/dL Est GFR ( Amer) 33 Est GFR (Non-Af Amer) 27 POC Glucose (mg/dL) 171 H 144 H (65-110) mg/dL Random Glucose 167 H (70-110) mg/dL Calcium 7.9 L (8.4-10.5) mg/dL Total Bilirubin 0.6 (0.2-1.3) mg/dL AST 226 H (15-59) U/L ALT 183 H (7-56) U/L Alkaline Phosphatase 70 (38-133) U/L Troponin I 1.51 H* D ng/mL Total Protein 5.2 L (5.8-8.3) g/dL Albumin 2.3 L (3.0-4.8) g/dL Globulin 2.9 gm/dL Albumin/Globulin Ratio 0.8 L (1.1-1.8) Procalcitonin 7.36 H (0.19-0.49) NG/ML Arterial Blood Potassium 4.4 (3.6-5.2) mmol/L Venous Blood Potassium 4.6 (3.6-5.2) mmol/L JOSEFA Screen (Negative) JOSEFA Titer JOSEFA Titer 2 JOSEFA Pattern JOSEFA Pattern 2 07/04/16 07/04/16 07/02/16 Range/Units 14:00 13:55 06:15 WBC (4.5-11.0) 10^3/ul RBC (3.5-6.1) 10^6/uL Hgb (14.0-18.0) gm/dL Hct (42.0-52.0) % MCV (80.0-105.0) fL MCH (25.0-35.0) pg MCHC (31.0-37.0) g/dl RDW (11.5-14.5) % Plt Count (120.0-450.0) 10^3/uL MPV (7.0-11.0) fl Gran % (50.0-68.0) % Lymph % (Auto) (22.0-35.0) % [place] % (Auto) (1.0-6.0) % Eos % (Auto) (1.5-5.0) % Baso % (Auto) (0.0-3.0) % Gran # (1.4-6.5) Lymph # (1.2-3.4) [place] # (0.1-0.6) Eos # (0.0-0.7) Baso # (0.0-2.0) K/mm3 APTT (23.7-30.8) Seconds pCO2 78 H* (35-45) mm/Hg pO2 100.0 (80-100) mm/Hg HCO3 27.8 (21-28) mmol/L ABG pH 7.16 L* (7.35-7.45) ABG Total CO2 30.2 H (22-28) mmol.L ABG O2 Saturation 97.7 (95-98) % ABG O2 Content 17.3 (15-23) ML/dl ABG Base Excess -2.7 L (-2.0-3.0) mmol/L ABG Hemoglobin 12.9 (11.7-17.4) g/dL ABG Carboxyhemoglobin 2.6 H (0.5-1.5) % POC ABG HHb (Measured) 2.2 (0-5) % ABG Methemoglobin 0.5 (0.0-3.0) % ABG O2 Capacity 17.7 (16-24) mL/dl ABG Potassium (3.6-5.2) mmol/L VBG pH (7.32-7.43) VBG pCO2 (40-60) VBG HCO3 (21-28) mmol/l VBG Total CO2 (22-28) mmol.L VBG O2 Sat (Calc) (40-65) % VBG Base Excess (0.0-2.0) mmol/L VBG Potassium (3.6-5.2) mmol/L Hgb O2 Saturation 94.8 L (95.0-98.0) % Glucose (75-110) mg/dl Lactate (0.7-2.1) mmol/L Mechanical Rate FiO2 32.0 % Tidal Volume PEEP Sodium (132-148) mmol/L Potassium (3.6-5.0) mmol/L Chloride (95-110) mmol/L Carbon Dioxide (21-33) mmol/L Anion Gap (10-20) BUN (7-21) mg/dL Creatinine (0.5-1.4) mg/dL Est GFR ( Amer) Est GFR (Non-Af Amer) POC Glucose (mg/dL) 217 H (65-110) mg/dL Random Glucose (70-110) mg/dL Calcium (8.4-10.5) mg/dL Total Bilirubin (0.2-1.3) mg/dL AST (15-59) U/L ALT (7-56) U/L Alkaline Phosphatase (38-133) U/L Troponin I ng/mL Total Protein (5.8-8.3) g/dL Albumin (3.0-4.8) g/dL Globulin gm/dL Albumin/Globulin Ratio (1.1-1.8) Procalcitonin (0.19-0.49) NG/ML Arterial Blood Potassium (3.6-5.2) mmol/L Venous Blood Potassium (3.6-5.2) mmol/L JOSEFA Screen Negative (Negative) JOSEFA Titer TEST NOT PERFORMED JOSEFA Titer 2 TEST NOT PERFORMED JOSEFA Pattern TEST NOT PERFORMED JOSEFA Pattern 2 TEST NOT PERFORMED Laboratory Results - last 24 hr 07/02/16 07/04/16 07/04/16 06:15 13:55 14:00 WBC RBC Hgb Hct MCV MCH MCHC RDW Plt Count MPV Gran % Lymph % (Auto) [place] % (Auto) Eos % (Auto) Baso % (Auto) Gran # Lymph # [place] # Eos # Baso # APTT pCO2 78 H* pO2 100.0 HCO3 27.8 ABG pH 7.16 L* ABG Total CO2 30.2 H ABG O2 Saturation 97.7 ABG O2 Content 17.3 ABG Base Excess -2.7 L ABG Hemoglobin 12.9 ABG Carboxyhemoglobin 2.6 H POC ABG HHb (Measured) 2.2 ABG Methemoglobin 0.5 ABG O2 Capacity 17.7 ABG Potassium VBG pH VBG pCO2 VBG HCO3 VBG Total CO2 VBG O2 Sat (Calc) VBG Base Excess VBG Potassium Hgb O2 Saturation 94.8 L Sodium Chloride Glucose Lactate Mechanical Rate FiO2 32.0 Tidal Volume PEEP Potassium Carbon Dioxide Anion Gap BUN Creatinine Est GFR ( Amer) Est GFR (Non-Af Amer) POC Glucose (mg/dL) 217 H Random Glucose Calcium Total Bilirubin AST ALT Alkaline Phosphatase Troponin I Total Protein Albumin Globulin Albumin/Globulin Ratio Procalcitonin Arterial Blood Potassium Venous Blood Potassium JOSEFA Screen Negative JOSEFA Titer TEST NOT PERFORMED JOSEFA Titer 2 TEST NOT PERFORMED JOSEFA Pattern TEST NOT PERFORMED JOSEFA Pattern 2 TEST NOT PERFORMED 07/04/16 07/04/16 07/04/16 14:26 16:24 16:58 WBC 13.7 H D RBC 3.97 Hgb 10.9 L Hct 33.6 L MCV 84.6 MCH 27.5 MCHC 32.4 RDW 14.7 H Plt Count 156 MPV 9.4 Gran % 87.3 H Lymph % (Auto) 8.0 L [place] % (Auto) 4.6 Eos % (Auto) 0.0 L Baso % (Auto) 0.1 Gran # 11.97 H Lymph # 1.1 L [place] # 0.6 Eos # 0.0 Baso # 0.02 APTT pCO2 47 H pO2 45 HCO3 25.4 ABG pH 7.34 L ABG Total CO2 26.8 ABG O2 Saturation 99.5 H ABG O2 Content ABG Base Excess -0.8 ABG Hemoglobin ABG Carboxyhemoglobin POC ABG HHb (Measured) ABG Methemoglobin ABG O2 Capacity ABG Potassium 4.4 VBG pH 7.27 L VBG pCO2 61.0 H VBG HCO3 28.0 VBG Total CO2 29.9 H VBG O2 Sat (Calc) 82.3 H VBG Base Excess -0.3 L VBG Potassium 4.6 Hgb O2 Saturation Sodium 145 Chloride 108 H Glucose 174 H Lactate 1.2 Mechanical Rate 16 FiO2 21.0 Tidal Volume 450 PEEP 5 Potassium 4.6 Carbon Dioxide 27 Anion Gap 15 BUN 79 H Creatinine 2.3 H Est GFR ( Amer) 33 Est GFR (Non-Af Amer) 27 POC Glucose (mg/dL) 144 H 171 H Random Glucose 167 H Calcium 7.9 L Total Bilirubin 0.6 AST 226 H ALT 183 H Alkaline Phosphatase 70 Troponin I 1.51 H* D Total Protein 5.2 L Albumin 2.3 L Globulin 2.9 Albumin/Globulin Ratio 0.8 L Procalcitonin 7.36 H Arterial Blood Potassium 4.4 Venous Blood Potassium 4.6 JOSEFA Screen JOSEFA Titer JOSEFA Titer 2 JOSEFA Pattern JOSEFA Pattern 2 07/04/16 07/04/16 07/05/16 19:50 21:30 03:45 WBC RBC Hgb Hct MCV MCH MCHC RDW Plt Count MPV Gran % Lymph % (Auto) [place] % (Auto) Eos % (Auto) Baso % (Auto) Gran # Lymph # [place] # Eos # Baso # APTT 118.3 H* pCO2 pO2 HCO3 ABG pH ABG Total CO2 ABG O2 Saturation ABG O2 Content ABG Base Excess ABG Hemoglobin ABG Carboxyhemoglobin POC ABG HHb (Measured) ABG Methemoglobin ABG O2 Capacity ABG Potassium VBG pH VBG pCO2 VBG HCO3 VBG Total CO2 VBG O2 Sat (Calc) VBG Base Excess VBG Potassium Hgb O2 Saturation Sodium Chloride Glucose Lactate Mechanical Rate FiO2 Tidal Volume PEEP Potassium Carbon Dioxide Anion Gap BUN Creatinine Est GFR ( Amer) Est GFR (Non-Af Amer) POC Glucose (mg/dL) 203 H Random Glucose Calcium Total Bilirubin AST ALT Alkaline Phosphatase Troponin I 3.37 H* D Total Protein Albumin Globulin Albumin/Globulin Ratio Procalcitonin Arterial Blood Potassium Venous Blood Potassium JOSEFA Screen JOSEFA Titer JOSEFA Titer 2 JOSEFA Pattern JOSEFA Pattern 2 07/05/16 07/05/16 07/05/16 05:15 05:30 07:00 WBC 12.8 H RBC 4.01 Hgb 11.1 L Hct 33.6 L MCV 83.8 MCH 27.7 MCHC 33.0 RDW 14.8 H Plt Count 191 MPV 9.4 Gran % Lymph % (Auto) [place] % (Auto) Eos % (Auto) Baso % (Auto) Gran # Lymph # [place] # Eos # Baso # APTT pCO2 43 pO2 105.0 H HCO3 25.4 ABG pH 7.38 ABG Total CO2 26.7 ABG O2 Saturation 98.8 H ABG O2 Content 15.2 ABG Base Excess 0.1 ABG Hemoglobin 11.1 L ABG Carboxyhemoglobin 1.8 H POC ABG HHb (Measured) 1.2 ABG Methemoglobin 0.4 ABG O2 Capacity 15.4 L ABG Potassium VBG pH VBG pCO2 VBG HCO3 VBG Total CO2 VBG O2 Sat (Calc) VBG Base Excess VBG Potassium Hgb O2 Saturation 96.6 Sodium 149 H Chloride 110 Glucose Lactate Mechanical Rate FiO2 50.0 Tidal Volume PEEP Potassium 4.2 Carbon Dioxide 27 Anion Gap 16 BUN 87 H Creatinine 2.0 H Est GFR ( Amer) 39 Est GFR (Non-Af Amer) 32 POC Glucose (mg/dL) Random Glucose 196 H Calcium 8.1 L Total Bilirubin 0.5 AST 171 H ALT 171 H Alkaline Phosphatase 72 Troponin I 5.25 H* D Total Protein 5.3 L Albumin 2.5 L Globulin 2.8 Albumin/Globulin Ratio 0.9 L Procalcitonin Arterial Blood Potassium Venous Blood Potassium JOSEFA Screen JOSEFA Titer JOSEFA Titer 2 JOSEFA Pattern JOSEFA Pattern 2 EKG/Cardiology Studies: Cardiology / EKG Studies 07/04/16 14:40 EKG [ELECTROCARDIOGRAM] Stat Comment: NSTEMI on admission Reason For Exam: Pt is unresponsive Review of Systems - Constitutional Constitutional: absent: Fever, Chills - EENT Eyes: absent: Change in Vision Ears: absent: Dizziness - Cardiovascular Cardiovascular: absent: Chest Pain, Diaphoresis - Respiratory Respiratory: absent: Cough, Dyspnea, Pain on Inspiration - Gastrointestinal Gastrointestinal: absent: Abdominal Pain, Nausea, Vomiting - Integumentary Integumentary: absent: New Lesions Critical Care Progress Note - Ventilator Checklist PUD Prophalyxis: Yes DVT Prophylaxis: Yes - Nutrition Nutrition: Nutrition Category Date Time Status NPO Diet [DIET] Diets 07/04/16 Dinner Ordered Assessment/Plan - Assessment and Plan (Free Text) Assessment: 80 yo M w h/o HTN, COPD, obesity, dementia initially admitted to [facility] – [place] with Group G strep bacteremia, L foot MSSA infection transferred to ICU yesterday s/p SEVERITY OF ILLNESS COORDINATOR due to hypoxic, hypercarbic RF requiring intubation, now s/p extubation this AM. Now off pressors, new troponin elevations. Plan: Neuro: AAOx3, NAD, s/p extubation this AM, tolerating NC, able to clear secretions and protect airway Pulm: Hypercarbic RF 2/2 Ativan with hypoventilation, patient was difficult to arouse, GCS worrisome for protecting airway yesterday Will monitor in ICU for a few hours post-extubation Duonebs Q6hr CV: Off vasopressors. New troponin elevation now to 5.25. Will repeat EKG STAT and 2D ECHO to assess for new LV wall motion abnormalities. Cardio recs appreciated. GI: GI ppx Transaminitis still improving. Continue monitoring Renal: Stress dose steroids. INEZ (unknonw baseline) stable. Continue IVF as per primary team Endo: No acute issues. Maintain euglycemia 140-180 ID: Continue Meropenem for L foot MSSA cellulitis, Group G Strep bacteremia. Procalcitonin trending down 7.36 from 31.55 Heme: Hb stable. No signs of bleeding. DVT/GI ppx: Heparin gtt, protonix - Date & Time Date: 07/05/16 Time: 12:32 <Sam Guerin MD H - Last Filed: 07/05/16 15:19> CCU Objective - Vital Signs / Intake & Output Vital Signs (Last 4 hours): Vital Signs Temp Pulse Resp BP Pulse Ox 07/05/16 12:32 71 24 191/75 H 96 07/05/16 12:30 72 22 186/69 H 97 07/05/16 12:19 73 182/45 H 07/05/16 12:15 69 16 98 07/05/16 12:00 97.1 F L 73 27 H 182/45 H 96 07/05/16 11:45 86 30 H 07/05/16 11:30 66 29 H 187/65 H 96 07/05/16 11:27 67 19 193/79 H 95 Intake and Output (Last 8hrs): Intake & Output 07/05/16 07/05/16 07/05/16 06:59 14:59 22:59 Intake Total 447 Output Total 1000 Balance -553 Weight 250 lb 6.4 oz Intake: IV 447 Left Forearm 183 Left Upper arm 184 right antecubital 80 Oral 0 Output: Urine 1000 Urethral (Jc) 1000 Other: # Bowel Movements 0 - Medications Active Medications: Active Medications Generic Name Dose Route Start Last Admin Trade Name Freq PRN Reason Stop Dose Admin Acetaminophen 650 mg 06/29/16 11:33 06/30/16 09:15 Tylenol 325mg Tab PO 650 mg Q4 PRN Administration Fever >100.4 F Albuterol/Ipratropium 3 ml 07/05/16 08:00 07/05/16 13:14 Duoneb 3 Mg/0.5 Mg (3 Ml) Ud IH 3 ml [id number] SARAH Administration Alprazolam 0.25 mg 07/04/16 08:42 Xanax PO 07/11/16 12:01 Q6 PRN Anxiety Protocol Aspirin 325 mg 07/02/16 10:00 07/05/16 10:32 Aspirin PO Not Given DAILY SARAH Clotrimazole 0 gm 06/29/16 18:00 07/05/16 10:40 Lotrimin 1% TOP 1 applic BID SARAH Administration Hydralazine HCl 5 mg 07/05/16 12:07 07/05/16 12:19 Apresoline IVP 5 mg Q6 PRN Administration Systolic Blood Pressure Hydralazine HCl 10 mg 07/05/16 18:00 Apresoline IVP Q6 SARAH Hydrocortisone Sodium Succinate 50 mg 07/04/16 15:45 07/05/16 14:59 Solu-Cortef IVP 50 mg Q6H SARAH Administration Heparin Sodium/Sodium Chloride 250 mls @ 13.63 mls/hr 07/04/16 21:30 07/05/16 05:30 Heparin 37043 Units/250ml 1/2 Normal Saline IV 9 units/kg/hr .[id number] SARAH Titration Protocol 12 UNITS/KG/HR Dextrose 1,000 mls @ 100 mls/hr 07/05/16 08:00 07/05/16 08:50 Dextrose 5% In Water 1000 Ml IV 07/06/16 03:59 100 mls/hr .Q10H SARAH Administration Meropenem 1g/NS 100mL IVPB 100 mls @ 100 mls/hr 07/05/16 08:30 07/05/16 09:31 Meropenem 1g/Ns 100ml Ivpb IVPB 07/12/16 08:31 100 mls/hr Q12 SARAH Administration Protocol Metoprolol Tartrate 2.5 mg 07/05/16 09:00 07/05/16 09:27 Lopressor IV 2.5 mg Q8H SARAH Administration Morphine Sulfate 1 mg 06/29/16 12:41 07/04/16 02:22 Morphine IVP 1 mg Q4H PRN Administration Pain, moderate (4-7) Pantoprazole Sodium 40 mg 07/04/16 16:00 07/05/16 09:26 Protonix Inj IVP 40 mg DAILY SARAH Administration Silver Sulfadiazine 0 ea 07/02/16 10:00 07/05/16 10:40 Silvadene 1% 20 Gm TOP 1 applic DAILY SARAH Administration - Patient Studies Lab Studies: Microbiology Studies 07/04/16 23:05 Gram Stain - Final Trachasp 06/30/16 15:50 Blood Culture - Preliminary Blood-Venous NO GROWTH AFTER 4 DAYS 06/30/16 15:30 Blood Culture - Preliminary Blood-Venous NO GROWTH AFTER 4 DAYS Lab Studies 07/05/16 07/05/16 07/05/16 Range/Units 12:30 07:00 05:30 WBC 12.8 H (4.5-11.0) 10^3/ul RBC 4.01 (3.5-6.1) 10^6/uL Hgb 11.1 L (14.0-18.0) gm/dL Hct 33.6 L (42.0-52.0) % MCV 83.8 (80.0-105.0) fL MCH 27.7 (25.0-35.0) pg MCHC 33.0 (31.0-37.0) g/dl RDW 14.8 H (11.5-14.5) % Plt Count 191 (120.0-450.0) 10^3/uL MPV 9.4 (7.0-11.0) fl Gran % (50.0-68.0) % Lymph % (Auto) (22.0-35.0) % [place] % (Auto) (1.0-6.0) % Eos % (Auto) (1.5-5.0) % Baso % (Auto) (0.0-3.0) % Gran # (1.4-6.5) Lymph # (1.2-3.4) [place] # (0.1-0.6) Eos # (0.0-0.7) Baso # (0.0-2.0) K/mm3 APTT 37.0 H (23.7-30.8) Seconds pCO2 (35-45) mm/Hg pO2 (80-100) mm/Hg HCO3 (21-28) mmol/L ABG pH (7.35-7.45) ABG Total CO2 (22-28) mmol.L ABG O2 Saturation (95-98) % ABG O2 Content (15-23) ML/dl ABG Base Excess (-2.0-3.0) mmol/L ABG Hemoglobin (11.7-17.4) g/dL ABG Carboxyhemoglobin (0.5-1.5) % POC ABG HHb (Measured) (0-5) % ABG Methemoglobin (0.0-3.0) % ABG O2 Capacity (16-24) mL/dl ABG Potassium (3.6-5.2) mmol/L VBG pH (7.32-7.43) VBG pCO2 (40-60) VBG HCO3 (21-28) mmol/l VBG Total CO2 (22-28) mmol.L VBG O2 Sat (Calc) (40-65) % VBG Base Excess (0.0-2.0) mmol/L VBG Potassium (3.6-5.2) mmol/L Hgb O2 Saturation (95.0-98.0) % Glucose (75-110) mg/dl Lactate (0.7-2.1) mmol/L Mechanical Rate FiO2 % Tidal Volume PEEP Sodium 149 H (132-148) mmol/L Potassium 4.2 (3.6-5.0) mmol/L Chloride 110 (95-110) mmol/L Carbon Dioxide 27 (21-33) mmol/L Anion Gap 16 (10-20) BUN 87 H (7-21) mg/dL Creatinine 2.0 H (0.5-1.4) mg/dL Est GFR ( Amer) 39 Est GFR (Non-Af Amer) 32 POC Glucose (mg/dL) (65-110) mg/dL Random Glucose 196 H (70-110) mg/dL Calcium 8.1 L (8.4-10.5) mg/dL Total Bilirubin 0.5 (0.2-1.3) mg/dL AST 171 H (15-59) U/L ALT 171 H (7-56) U/L Alkaline Phosphatase 72 (38-133) U/L Troponin I 5.25 H* D ng/mL Total Protein 5.3 L (5.8-8.3) g/dL Albumin 2.5 L (3.0-4.8) g/dL Globulin 2.8 gm/dL Albumin/Globulin Ratio 0.9 L (1.1-1.8) Procalcitonin (0.19-0.49) NG/ML Arterial Blood Potassium (3.6-5.2) mmol/L Venous Blood Potassium (3.6-5.2) mmol/L Serum Immunofixation (()) Urine Immunofixation (()) JOSEFA Screen (Negative) JOSEFA Titer JOSEFA Titer 2 JOSEFA Pattern JOSEFA Pattern 2 07/05/16 07/05/16 07/04/16 Range/Units 05:15 03:45 21:30 WBC (4.5-11.0) 10^3/ul RBC (3.5-6.1) 10^6/uL Hgb (14.0-18.0) gm/dL Hct (42.0-52.0) % MCV (80.0-105.0) fL MCH (25.0-35.0) pg MCHC (31.0-37.0) g/dl RDW (11.5-14.5) % Plt Count (120.0-450.0) 10^3/uL MPV (7.0-11.0) fl Gran % (50.0-68.0) % Lymph % (Auto) (22.0-35.0) % [place] % (Auto) (1.0-6.0) % Eos % (Auto) (1.5-5.0) % Baso % (Auto) (0.0-3.0) % Gran # (1.4-6.5) Lymph # (1.2-3.4) [place] # (0.1-0.6) Eos # (0.0-0.7) Baso # (0.0-2.0) K/mm3 APTT 118.3 H* (23.7-30.8) Seconds pCO2 43 (35-45) mm/Hg pO2 105.0 H (80-100) mm/Hg HCO3 25.4 (21-28) mmol/L ABG pH 7.38 (7.35-7.45) ABG Total CO2 26.7 (22-28) mmol.L ABG O2 Saturation 98.8 H (95-98) % ABG O2 Content 15.2 (15-23) ML/dl ABG Base Excess 0.1 (-2.0-3.0) mmol/L ABG Hemoglobin 11.1 L (11.7-17.4) g/dL ABG Carboxyhemoglobin 1.8 H (0.5-1.5) % POC ABG HHb (Measured) 1.2 (0-5) % ABG Methemoglobin 0.4 (0.0-3.0) % ABG O2 Capacity 15.4 L (16-24) mL/dl ABG Potassium (3.6-5.2) mmol/L VBG pH (7.32-7.43) VBG pCO2 (40-60) VBG HCO3 (21-28) mmol/l VBG Total CO2 (22-28) mmol.L VBG O2 Sat (Calc) (40-65) % VBG Base Excess (0.0-2.0) mmol/L VBG Potassium (3.6-5.2) mmol/L Hgb O2 Saturation 96.6 (95.0-98.0) % Glucose (75-110) mg/dl Lactate (0.7-2.1) mmol/L Mechanical Rate FiO2 50.0 % Tidal Volume PEEP Sodium (132-148) mmol/L Potassium (3.6-5.0) mmol/L Chloride (95-110) mmol/L Carbon Dioxide (21-33) mmol/L Anion Gap (10-20) BUN (7-21) mg/dL Creatinine (0.5-1.4) mg/dL Est GFR ( Amer) Est GFR (Non-Af Amer) POC Glucose (mg/dL) 203 H (65-110) mg/dL Random Glucose (70-110) mg/dL Calcium (8.4-10.5) mg/dL Total Bilirubin (0.2-1.3) mg/dL AST (15-59) U/L ALT (7-56) U/L Alkaline Phosphatase (38-133) U/L Troponin I ng/mL Total Protein (5.8-8.3) g/dL Albumin (3.0-4.8) g/dL Globulin gm/dL Albumin/Globulin Ratio (1.1-1.8) Procalcitonin (0.19-0.49) NG/ML Arterial Blood Potassium (3.6-5.2) mmol/L Venous Blood Potassium (3.6-5.2) mmol/L Serum Immunofixation (()) Urine Immunofixation (()) JOSEFA Screen (Negative) JOSEFA Titer JOSEFA Titer 2 JOSEFA Pattern JOSEFA Pattern 2 07/04/16 07/04/16 07/04/16 Range/Units 19:50 16:58 16:24 WBC 13.7 H D (4.5-11.0) 10^3/ul RBC 3.97 (3.5-6.1) 10^6/uL Hgb 10.9 L (14.0-18.0) gm/dL Hct 33.6 L (42.0-52.0) % MCV 84.6 (80.0-105.0) fL MCH 27.5 (25.0-35.0) pg MCHC 32.4 (31.0-37.0) g/dl RDW 14.7 H (11.5-14.5) % Plt Count 156 (120.0-450.0) 10^3/uL MPV 9.4 (7.0-11.0) fl Gran % 87.3 H (50.0-68.0) % Lymph % (Auto) 8.0 L (22.0-35.0) % [place] % (Auto) 4.6 (1.0-6.0) % Eos % (Auto) 0.0 L (1.5-5.0) % Baso % (Auto) 0.1 (0.0-3.0) % Gran # 11.97 H (1.4-6.5) Lymph # 1.1 L (1.2-3.4) [place] # 0.6 (0.1-0.6) Eos # 0.0 (0.0-0.7) Baso # 0.02 (0.0-2.0) K/mm3 APTT (23.7-30.8) Seconds pCO2 47 H (35-45) mm/Hg pO2 366.0 H (80-100) mm/Hg HCO3 25.4 (21-28) mmol/L ABG pH 7.34 L (7.35-7.45) ABG Total CO2 26.8 (22-28) mmol.L ABG O2 Saturation 99.5 H (95-98) % ABG O2 Content (15-23) ML/dl ABG Base Excess -0.8 (-2.0-3.0) mmol/L ABG Hemoglobin (11.7-17.4) g/dL ABG Carboxyhemoglobin (0.5-1.5) % POC ABG HHb (Measured) (0-5) % ABG Methemoglobin (0.0-3.0) % ABG O2 Capacity (16-24) mL/dl ABG Potassium 4.4 (3.6-5.2) mmol/L VBG pH 7.27 L (7.32-7.43) VBG pCO2 61.0 H (40-60) VBG HCO3 28.0 (21-28) mmol/l VBG Total CO2 29.9 H (22-28) mmol.L VBG O2 Sat (Calc) 82.3 H (40-65) % VBG Base Excess -0.3 L (0.0-2.0) mmol/L VBG Potassium 4.6 (3.6-5.2) mmol/L Hgb O2 Saturation (95.0-98.0) % Glucose 167 H (75-110) mg/dl Lactate 1.2 (0.7-2.1) mmol/L Mechanical Rate 16 FiO2 100.0 % Tidal Volume 450 PEEP 5 Sodium 145.0 (132-148) mmol/L Potassium 4.6 (3.6-5.0) mmol/L Chloride 116.0 H (95-110) mmol/L Carbon Dioxide 27 (21-33) mmol/L Anion Gap 15 (10-20) BUN 79 H (7-21) mg/dL Creatinine 2.3 H (0.5-1.4) mg/dL Est GFR ( Amer) 33 Est GFR (Non-Af Amer) 27 POC Glucose (mg/dL) 171 H (65-110) mg/dL Random Glucose 167 H (70-110) mg/dL Calcium 7.9 L (8.4-10.5) mg/dL Total Bilirubin 0.6 (0.2-1.3) mg/dL AST 226 H (15-59) U/L ALT 183 H (7-56) U/L Alkaline Phosphatase 70 (38-133) U/L Troponin I 3.37 H* D 1.51 H* D ng/mL Total Protein 5.2 L (5.8-8.3) g/dL Albumin 2.3 L (3.0-4.8) g/dL Globulin 2.9 gm/dL Albumin/Globulin Ratio 0.8 L (1.1-1.8) Procalcitonin 7.36 H (0.19-0.49) NG/ML Arterial Blood Potassium 4.4 (3.6-5.2) mmol/L Venous Blood Potassium 4.6 (3.6-5.2) mmol/L Serum Immunofixation (()) Urine Immunofixation (()) JOSEFA Screen (Negative) JOSEFA Titer JOSEFA Titer 2 JOSEFA Pattern JOSEFA Pattern 2 07/02/16 07/01/16 Range/Units 06:15 12:00 WBC (4.5-11.0) 10^3/ul RBC (3.5-6.1) 10^6/uL Hgb (14.0-18.0) gm/dL Hct (42.0-52.0) % MCV (80.0-105.0) fL MCH (25.0-35.0) pg MCHC (31.0-37.0) g/dl RDW (11.5-14.5) % Plt Count (120.0-450.0) 10^3/uL MPV (7.0-11.0) fl Gran % (50.0-68.0) % Lymph % (Auto) (22.0-35.0) % [place] % (Auto) (1.0-6.0) % Eos % (Auto) (1.5-5.0) % Baso % (Auto) (0.0-3.0) % Gran # (1.4-6.5) Lymph # (1.2-3.4) [place] # (0.1-0.6) Eos # (0.0-0.7) Baso # (0.0-2.0) K/mm3 APTT (23.7-30.8) Seconds pCO2 (35-45) mm/Hg pO2 (80-100) mm/Hg HCO3 (21-28) mmol/L ABG pH (7.35-7.45) ABG Total CO2 (22-28) mmol.L ABG O2 Saturation (95-98) % ABG O2 Content (15-23) ML/dl ABG Base Excess (-2.0-3.0) mmol/L ABG Hemoglobin (11.7-17.4) g/dL ABG Carboxyhemoglobin (0.5-1.5) % POC ABG HHb (Measured) (0-5) % ABG Methemoglobin (0.0-3.0) % ABG O2 Capacity (16-24) mL/dl ABG Potassium (3.6-5.2) mmol/L VBG pH (7.32-7.43) VBG pCO2 (40-60) VBG HCO3 (21-28) mmol/l VBG Total CO2 (22-28) mmol.L VBG O2 Sat (Calc) (40-65) % VBG Base Excess (0.0-2.0) mmol/L VBG Potassium (3.6-5.2) mmol/L Hgb O2 Saturation (95.0-98.0) % Glucose (75-110) mg/dl Lactate (0.7-2.1) mmol/L Mechanical Rate FiO2 % Tidal Volume PEEP Sodium (132-148) mmol/L Potassium (3.6-5.0) mmol/L Chloride (95-110) mmol/L Carbon Dioxide (21-33) mmol/L Anion Gap (10-20) BUN (7-21) mg/dL Creatinine (0.5-1.4) mg/dL Est GFR ( Amer) Est GFR (Non-Af Amer) POC Glucose (mg/dL) (65-110) mg/dL Random Glucose (70-110) mg/dL Calcium (8.4-10.5) mg/dL Total Bilirubin (0.2-1.3) mg/dL AST (15-59) U/L ALT (7-56) U/L Alkaline Phosphatase (38-133) U/L Troponin I ng/mL Total Protein (5.8-8.3) g/dL Albumin (3.0-4.8) g/dL Globulin gm/dL Albumin/Globulin Ratio (1.1-1.8) Procalcitonin (0.19-0.49) NG/ML Arterial Blood Potassium (3.6-5.2) mmol/L Venous Blood Potassium (3.6-5.2) mmol/L Serum Immunofixation See note (()) Urine Immunofixation See note (()) JOSEFA Screen Negative (Negative) JOSEFA Titer TEST NOT PERFORMED JOSEFA Titer 2 TEST NOT PERFORMED JOSEFA Pattern TEST NOT PERFORMED JOSEFA Pattern 2 TEST NOT PERFORMED Laboratory Results - last 24 hr 07/01/16 07/02/16 07/04/16 12:00 06:15 16:24 WBC 13.7 H D RBC 3.97 Hgb 10.9 L Hct 33.6 L MCV 84.6 MCH 27.5 MCHC 32.4 RDW 14.7 H Plt Count 156 MPV 9.4 Gran % 87.3 H Lymph % (Auto) 8.0 L [place] % (Auto) 4.6 Eos % (Auto) 0.0 L Baso % (Auto) 0.1 Gran # 11.97 H Lymph # 1.1 L [place] # 0.6 Eos # 0.0 Baso # 0.02 APTT pCO2 47 H pO2 45 HCO3 25.4 ABG pH 7.34 L ABG Total CO2 26.8 ABG O2 Saturation 99.5 H ABG O2 Content ABG Base Excess -0.8 ABG Hemoglobin ABG Carboxyhemoglobin POC ABG HHb (Measured) ABG Methemoglobin ABG O2 Capacity ABG Potassium 4.4 VBG pH 7.27 L VBG pCO2 61.0 H VBG HCO3 28.0 VBG Total CO2 29.9 H VBG O2 Sat (Calc) 82.3 H VBG Base Excess -0.3 L VBG Potassium 4.6 Hgb O2 Saturation Sodium 145 Chloride 108 H Glucose 174 H Lactate 1.2 Mechanical Rate 16 FiO2 21.0 Tidal Volume 450 PEEP 5 Potassium 4.6 Carbon Dioxide 27 Anion Gap 15 BUN 79 H Creatinine 2.3 H Est GFR ( Amer) 33 Est GFR (Non-Af Amer) 27 POC Glucose (mg/dL) Random Glucose 167 H Calcium 7.9 L Total Bilirubin 0.6 AST 226 H ALT 183 H Alkaline Phosphatase 70 Troponin I 1.51 H* D Total Protein 5.2 L Albumin 2.3 L Globulin 2.9 Albumin/Globulin Ratio 0.8 L Procalcitonin 7.36 H Arterial Blood Potassium 4.4 Venous Blood Potassium 4.6 Serum Immunofixation See note Urine Immunofixation See note JOSEFA Screen Negative JOSEFA Titer TEST NOT PERFORMED JOSEFA Titer 2 TEST NOT PERFORMED JOSEFA Pattern TEST NOT PERFORMED JOSEFA Pattern 2 TEST NOT PERFORMED 07/04/16 07/04/16 07/04/16 16:58 19:50 21:30 WBC RBC Hgb Hct MCV MCH MCHC RDW Plt Count MPV Gran % Lymph % (Auto) [place] % (Auto) Eos % (Auto) Baso % (Auto) Gran # Lymph # [place] # Eos # Baso # APTT pCO2 pO2 HCO3 ABG pH ABG Total CO2 ABG O2 Saturation ABG O2 Content ABG Base Excess ABG Hemoglobin ABG Carboxyhemoglobin POC ABG HHb (Measured) ABG Methemoglobin ABG O2 Capacity ABG Potassium VBG pH VBG pCO2 VBG HCO3 VBG Total CO2 VBG O2 Sat (Calc) VBG Base Excess VBG Potassium Hgb O2 Saturation Sodium Chloride Glucose Lactate Mechanical Rate FiO2 Tidal Volume PEEP Potassium Carbon Dioxide Anion Gap BUN Creatinine Est GFR ( Amer) Est GFR (Non-Af Amer) POC Glucose (mg/dL) 171 H 203 H Random Glucose Calcium Total Bilirubin AST ALT Alkaline Phosphatase Troponin I 3.37 H* D Total Protein Albumin Globulin Albumin/Globulin Ratio Procalcitonin Arterial Blood Potassium Venous Blood Potassium Serum Immunofixation Urine Immunofixation JOSEFA Screen JOSEFA Titer JOSEFA Titer 2 JOSEFA Pattern JOSEFA Pattern 2 07/05/16 07/05/16 07/05/16 03:45 05:15 05:30 WBC 12.8 H RBC 4.01 Hgb 11.1 L Hct 33.6 L MCV 83.8 MCH 27.7 MCHC 33.0 RDW 14.8 H Plt Count 191 MPV 9.4 Gran % Lymph % (Auto) [place] % (Auto) Eos % (Auto) Baso % (Auto) Gran # Lymph # [place] # Eos # Baso # APTT 118.3 H* pCO2 43 pO2 105.0 H HCO3 25.4 ABG pH 7.38 ABG Total CO2 26.7 ABG O2 Saturation 98.8 H ABG O2 Content 15.2 ABG Base Excess 0.1 ABG Hemoglobin 11.1 L ABG Carboxyhemoglobin 1.8 H POC ABG HHb (Measured) 1.2 ABG Methemoglobin 0.4 ABG O2 Capacity 15.4 L ABG Potassium VBG pH VBG pCO2 VBG HCO3 VBG Total CO2 VBG O2 Sat (Calc) VBG Base Excess VBG Potassium Hgb O2 Saturation 96.6 Sodium 149 H Chloride 110 Glucose Lactate Mechanical Rate FiO2 50.0 Tidal Volume PEEP Potassium 4.2 Carbon Dioxide 27 Anion Gap 16 BUN 87 H Creatinine 2.0 H Est GFR ( Amer) 39 Est GFR (Non-Af Amer) 32 POC Glucose (mg/dL) Random Glucose 196 H Calcium 8.1 L Total Bilirubin 0.5 AST 171 H ALT 171 H Alkaline Phosphatase 72 Troponin I Total Protein 5.3 L Albumin 2.5 L Globulin 2.8 Albumin/Globulin Ratio 0.9 L Procalcitonin Arterial Blood Potassium Venous Blood Potassium Serum Immunofixation Urine Immunofixation JOSEFA Screen JOSEFA Titer JOSEFA Titer 2 JOSEFA Pattern JOSEFA Pattern 2 07/05/16 07/05/16 07:00 12:30 WBC RBC Hgb Hct MCV MCH MCHC RDW Plt Count MPV Gran % Lymph % (Auto) [place] % (Auto) Eos % (Auto) Baso % (Auto) Gran # Lymph # [place] # Eos # Baso # APTT 37.0 H pCO2 pO2 HCO3 ABG pH ABG Total CO2 ABG O2 Saturation ABG O2 Content ABG Base Excess ABG Hemoglobin ABG Carboxyhemoglobin POC ABG HHb (Measured) ABG Methemoglobin ABG O2 Capacity ABG Potassium VBG pH VBG pCO2 VBG HCO3 VBG Total CO2 VBG O2 Sat (Calc) VBG Base Excess VBG Potassium Hgb O2 Saturation Sodium Chloride Glucose Lactate Mechanical Rate FiO2 Tidal Volume PEEP Potassium Carbon Dioxide Anion Gap BUN Creatinine Est GFR ( Amer) Est GFR (Non-Af Amer) POC Glucose (mg/dL) Random Glucose Calcium Total Bilirubin AST ALT Alkaline Phosphatase Troponin I 5.25 H* D Total Protein Albumin Globulin Albumin/Globulin Ratio Procalcitonin Arterial Blood Potassium Venous Blood Potassium Serum Immunofixation Urine Immunofixation JOSEFA Screen JOSEFA Titer JOSEFA Titer 2 JOSEFA Pattern JOSEFA Pattern 2 EKG/Cardiology Studies: Cardiology / EKG Studies 07/04/16 14:40 EKG [ELECTROCARDIOGRAM] Stat Comment: NSTEMI on admission Reason For Exam: Pt is unresponsive Critical Care Progress Note - Nutrition Nutrition: Nutrition Category Date Time Status Liquid Diet [DIET] Diets 07/05/16 Lunch Ordered Attending/Attestation - Attestation I have personally seen and examined this patient.: Yes I have fully participated in the care of the patient.: Yes I have reviewed all pertinent clinical information: Yes Notes (Text): 07/05/16 15:16 80 y/o M intubated for alveolar hypoventilation secondary to Ativan yesterday. Passed SBT PS trial this a.m. Extubated On treatment for presumed bactermia from cellulitis. I.D following. MSSA . Chest PT needed, nebulizers. PT/OT needed Off all vasopressors. Momentary need due to induction for Intubation and iatrogenic causes from medication. No signs of active septic shock currently. NSTEMI with increasing Troponins. Cardiology aware of troponin elevation, no plans for intervention. ECHo pending to evaluate wall motion and EF. On Heparin ggt. PTT WNL. cc time 65 min
[2016-07-05] MEDS: Heparin25000 units/250ml 1/2NS 250 ML IV SCH (13:25)
--- NOTE | 2016-07-05 15:20 | CP.PCM.PN ---
Subjective - Date & Time of Evaluation Date of Evaluation: 07/05/16 Time of Evaluation: 07:30 - Subjective Subjective: Noted events overnight. The patient developed hypercarbic respiratory failure and had to be intubated. The patient is now also on vaspressor support. Currently sedated. Objective - Vital Signs/Intake and Output Vital Signs (last 24 hours): Temp Pulse Resp BP Pulse Ox 97.1 F L 71 24 191/75 H 96 07/05/16 12:00 07/05/16 12:32 07/05/16 12:32 07/05/16 12:32 07/05/16 12:32 Intake and Output: 07/05/16 07/05/16 06:59 18:59 Intake Total 712 Output Total 1251 Balance -539 - Medications Medications: Current Medications Acetaminophen (Tylenol 325mg Tab) 650 mg PO Q4 PRN PRN Reason: Fever >100.4 F Last Admin: 06/30/16 09:15 Dose: 650 mg Albuterol/Ipratropium (Duoneb 3 Mg/0.5 Mg (3 Ml) Ud) 3 ml IH [id number] [facility] Last Admin: 07/05/16 13:14 Dose: 3 ml Alprazolam (Xanax) 0.25 mg PO Q6 PRN; Protocol PRN Reason: Anxiety Stop: 07/11/16 12:01 Aspirin (Aspirin) 325 mg PO DAILY [facility] Last Admin: 07/05/16 10:32 Dose: Not Given Clotrimazole (Lotrimin 1%) 0 gm TOP BID [facility] Last Admin: 07/05/16 10:40 Dose: 1 applic Hydralazine HCl (Apresoline) 5 mg IVP Q6 PRN PRN Reason: Systolic Blood Pressure Last Admin: 07/05/16 12:19 Dose: 5 mg Hydralazine HCl (Apresoline) 10 mg IVP Q6 SARAH Hydrocortisone Sodium Succinate (Solu-Cortef) 50 mg IVP Q6H [facility] Last Admin: 07/05/16 14:59 Dose: 50 mg Heparin Sodium/Sodium Chloride (Heparin 16915 Units/250ml 1/2 Normal Saline) 250 mls @ 13.63 mls/hr IV .[id number] SARAH; 12 UNITS/KG/HR PRN Reason: Protocol Last Titration: 07/05/16 05:30 Dose: 9 units/kg/hr Dextrose (Dextrose 5% In Water 1000 Ml) 1,000 mls @ 100 mls/hr IV .Q10H SARAH Stop: 07/06/16 03:59 Last Admin: 07/05/16 08:50 Dose: 100 mls/hr Meropenem 1g/NS 100mL IVPB (Meropenem 1g/Ns 100ml Ivpb) 100 mls @ 100 mls/hr IVPB Q12 SARAH PRN Reason: Protocol Stop: 07/12/16 08:31 Last Admin: 07/05/16 09:31 Dose: 100 mls/hr Metoprolol Tartrate (Lopressor) 2.5 mg IV Q8H SARAH Last Admin: 07/05/16 09:27 Dose: 2.5 mg Morphine Sulfate (Morphine) 1 mg IVP Q4H PRN PRN Reason: Pain, moderate (4-7) Last Admin: 07/04/16 02:22 Dose: 1 mg Pantoprazole Sodium (Protonix Inj) 40 mg IVP DAILY [facility] Last Admin: 07/05/16 09:26 Dose: 40 mg Silver Sulfadiazine (Silvadene 1% 20 Gm) 0 ea TOP DAILY [facility] Last Admin: 07/05/16 10:40 Dose: 1 applic - Labs Labs: 07/05/16 05:30 07/05/16 05:30 PT 12.1 Seconds (9.9-11.8) H 07/02/16 06:15 INR 1.12 (0.93-1.08) H 07/02/16 06:15 APTT 37.0 Seconds (23.7-30.8) H 07/05/16 12:30 - Constitutional Appears: Other (Intubated, sedated) - ENT Exam Additional comments: ET tube in place - Neck Exam Neck Exam: absent: Lymphadenopathy, Meningismus - Respiratory Exam Respiratory Exam: Decreased Breath Sounds - Cardiovascular Exam Cardiovascular Exam: +S1, +S2 - GI/Abdominal Exam GI & Abdominal Exam: Soft. absent: Tenderness Assessment and Plan - Assessment and Plan (Free Text) Plan: Assessment septic shock with acute on chronic renal failure due to Group G strep bacteremia , probably secondary to bilateral lower extremities skin and skin structure infection; also with MSSA from the wound cultures; R/O new onset sepsis, source to be determined acute rhabdomyolysis consider acute NSTEMI HTN chronic renal failure dementia obesity with BMI 38 Plan upgraded antibiotics to one dose of IV vancomycin and renally-adjusted Merrem ( day 6 from first negative blood cx) pending repeat septic work up; CXR does not show focal infiltrates 2D echocardiogram does not show vegetations will continue to monitor clinically Prognosis is very guarded at best
--- NOTE | 2016-07-05 19:15 | PN ---
DATE: 07/05/2016 SUBJECTIVE: The patient has been transferred to the ICU. He was extubated this morning after ventil atory failure, status post PEG placement. He is now awake and responsive, but remains somewhat confu sed. OBJECTIVE: VITAL SIGNS: Blood pressure 191/75, pulse 71, respiratory rate 24, temperature 97.1. LUNGS: Show a few crackles at the bases. HEART: Regular rate and rhythm. ABDOMEN: Soft, nontender, bowel sounds are hypoactive. EXTREMITIES: Without cyanosis or clubbing. There is trace to 1+ bipedal edema. NEUROLOGIC: The patient is awake and confused without focal sensory or motor deficits. SKIN: Warm and dry. LABORATORY DATA: WBC is 12.8, hemoglobin 11.1, hematocrit 33.6, sodium 149, potassium 4.2, chloride 100, CO2 of 27, BUN 87, creatinine 2.0. Glucose 196. Troponin is elevated at 5.25. IMPRESSION: 1. Status post ventilatory failure, rule out acute ischemia/infarct. 2. Hypertension, hypertensive cardiovascular disease and congestive heart failure. 3. Status post acute rhabdomyolysis with acute renal failure superimposed on chronic kidney disease, improving. 4. Chronic venous stasis ulcers of the lower extremities with cellulitis and sepsis. 5. Paroxysmal atrial fibrillation with intermittent rapid ventricular rate. 6. Dementia with superimposed delirium secondary to underlying metabolic derangement. 7. Immobility secondary to severe degenerative joint disease and obesity and deconditioning. PLAN: The patient has been started on anticoagulation. Continue IV antibiotics as well as cardiolog y, pulmonary, infectious disease followup. Prognosis is guarded at the present time. Leonid Calderón JD, MD cc: [id number] TT: 07/05/2016 19:14:54 Confirmation # [id number] Dictation # [id number] samuel
--- NOTE | 2016-07-05 20:34 | CARD ---
APPROVED REPORT EXAM: Two-dimensional and M-mode echocardiogram with Doppler and color Doppler. INDICATION Acute CO 2D DIMENSIONS Left Atrium (2D)5.1 (1.6-4.0cm)IVSd1.2 (0.7-1.1cm) LVDd5.6 (3.9-5.9cm)PWd1.4 (0.7-1.1cm) LVDs4.0 (2.5-4.0cm)FS (%) 28.0 % LVEF (%)53.0 (>50%) M-Mode DIMENSIONS Aortic Root4.00 (2.2-3.7cm)Aortic Cusp Exc.2.10 (1.5-2.0cm) Aortic Valve AoV Peak Kmxtuwwu189.0cm/Arnulfo Peak GR.11mmHgLVOT Peak Kwgvyxep368.0cm/s LVOT VTI25.70cm Mitral Valve MV E Dfklmqry12.5cm/sMV A Bhnujmqv123.0cm/sE/A ratio0.6 TDI Lateral E' Peak V8.58cm/sMedial E' Peak V5.17cm/sE/Lateral E'9.3 E/Medial E'15.4 Pulmonary Valve PV Peak Tekbrwhr42.1cm/sPV Peak Grad.2mmHg Tricuspid Valve TR Peak [id number]/sRAP [id number] Peak Gr.17mmHg [id number] LEFT VENTRICLE The left ventricle is normal size. There is mild concentric left ventricular hypertrophy. The left ventricular function is normal.EF-55% There is normal LV segmental wall motion. Transmitral Doppler flow pattern is Grade III-reversible restrictive diastolic dysfunction. No left ventricle thrombus noted on this study. There is no ventricular septal defect visualized. There is no left ventricular aneurysm. There is no mass noted in the left ventricle. RIGHT VENTRICLE The right ventricle is mildly dilated. There is normal right ventricular wall thickness. Systolic function is mildly reduced. ATRIA The left atrium is mildly dilated. The right atrium size is normal. The interatrial septum is intact with no evidence for an atrial septal defect. AORTIC VALVE The aortic valve is thickened but opens well. There is trace aortic regurgitation. There is no aortic valvular stenosis. There is no aortic valvular vegetation. MITRAL VALVE The mitral valve is thickened but opens well. Mitral regurgitation is trace to mild. There is no mitral valve stenosis. There is no evidence of mitral valve prolapse. TRICUSPID VALVE The tricuspid valve leaflets are thickened , but open well. There is trace to mild tricuspid regurgitation.RVSP-20 mmof hg. There is no tricuspid valve stenosis. There is no tricuspid valve prolapse or vegetation. PULMONIC VALVE The pulmonic valve is not well visualized. GREAT VESSELS The aortic root is normal in size. The ascending aorta is normal in size. The pulmonary artery is normal. The IVC is normal in size and collapses >50% with inspiration. PERICARDIAL EFFUSION There is no pleural effusion. There is no pericardial effusion. <Conclusion> The left ventricle is normal size. There is mild concentric left ventricular hypertrophy. The left ventricular function is normal.EF-55% There is trace aortic regurgitation. Mitral regurgitation is trace to mild. There is trace to mild tricuspid regurgitation.RVSP-20 mmof hg. The IVC is normal in size and collapses >50% with inspiration. There is no pericardial effusion.
[2016-07-05] MEDS: Morphine 2 mg/ml ISec IVP PRN (23:16)
[2016-07-06] MEDS: Metoprolol 1 mg/ml Inj IV SCH ×2 (01:46→08:47)
[2016-07-06] MEDS: Albuterol-Ipratrop 3 mg / 0.5 (3 ml) UD IH SCH ×4 (02:05→20:04)
[2016-07-06 05:48] LABS: ARTERIAL BLOOD GAS HCO3 25.9 mmol/L (21-28); ARTERIAL BLOOD GAS O2 CAPACITY 26.6 mL/dl (16-24); ARTERIAL BLOOD GAS O2 CONTENT 25.9 ML/dl (15-23); ARTERIAL BLOOD GAS PH 7.43 (7.35-7.45); ARTERIAL BLOOD HGB O2 SAT 95.1 % (95.0-98.0); CARBOXYHEMOGLOBIN 1.7 % (0.5-1.5); HHB 2.4 % (0-5); METHEMOGLOBIN 0.9 % (0.0-3.0)
[2016-07-06 06:33] LABS: HEMATOCRIT 33.6 % (42.0-52.0); MEAN CELL VOLUME 82.6 fL (80.0-105.0); MEAN CORPUSCULAR HEMOGLOBIN 27.3 pg (25.0-35.0); MEAN PLATELET VOLUME 9.1 fl (7.0-11.0); RED CELL DISTRIBUTION WIDTH 14.7 % (11.5-14.5); WHITE BLOOD COUNT 11.8 10^3/ul (4.5-11.0)
[2016-07-06 06:44] LABS: ALB/GLOB RATIO 0.9 (1.1-1.8); ALKALINE PHOSPHATASE 74 U/L (38-133); ALT/SGPT 135 U/L (7-56); AST/SGOT 134 U/L (15-59); BILIRUBIN,TOTAL 0.7 mg/dL (0.2-1.3); BLOOD UREA NITROGEN 62 mg/dL (7-21); CALCIUM 8.3 mg/dL (8.4-10.5); CARBON DIOXIDE 27 mmol/L (21-33); CHLORIDE 106 mmol/L (98-107); GFR AFRICAN-AMERICAN > 60; GLUCOSE,RANDOM 148 mg/dL (70-110); POTASSIUM 3.2 mmol/L (3.6-5.0); TOTAL PROTEIN 5.6 g/dL (5.8-8.3)
[2016-07-06 06:53] LABS: SODIUM 142 mmol/L (132-148)
[2016-07-06 07:29] LABS: BETA 1 GLOBULIN 0.4 g/dL (0.4-0.6); BETA 2 GLOBULIN 0.5 g/dL (0.2-0.5); GAMMA GLOBULIN 0.6 g/dL (0.8-1.7)
--- NOTE | 2016-07-06 07:34 | PN ---
DATE: 07/06/2016 SUBJECTIVE: The patient is extubated. No CP/SOB/N/V. PHYSICAL EXAMINATION: VITAL SIGNS: Temperature is 97.5, pulse of 104, blood pressure is 190/106, respirations 17. GENERAL: The patient comfortable, in no acute distress. HEENT: Anicteric sclerae. Moist mucosa. NECK: No JVD or adenopathy. CARDIAC: S1/S2. No murmurs. No rubs. Regular. RESPIRATORY: Clear to auscultation bilaterally. No wheezes, rales, or rhonchi. Good air entry. ABDOMEN: Bowel sounds are positive, soft, nontender, and nondistended. EXTREMITIES: No edema. Has 1+ pulses. LABORATORIES: Sodium is 149, creatinine is 2.0. ASSESSMENT: 1. Sepsis. 2. Respiratory failure, off ventilator. 3. Acute kidney injury, secondary to rhabdomyolysis. 4. Delirium. 5. Proteinuria 2 grams per day. 6. Paroxysmal atrial fibrillation. 7. Right knee pain, secondary to degenerative joint disease. 8. Obesity with a body mass index of 37. 9. Hypernatremia. 10. Hyperphosphatemia, secondary to acute kidney injury. 11. Non-ST elevation myocardial infarction. 12. Left foot wound with Staphylococcus aureus. 13. Hematuria. PLAN: The patient is currently extubated from ventilator. He is on aspirin. He is going to continue with metoprolol. He is on heparin for anticoagulation. He is being followed by cardiology. The patient is on meropenem for antibiotics. He is on Xanax as needed. I did speak to the patient's yesterday, Sofia, to give her an update on patient's diagnosis and plan of care. We will continue to follow closely. He remains critically ill. Addendum: Sodium improved today. Labs for today reviewed. Kolby Last MD cc: [id number] TT: 07/06/2016 07:33:35 Confirmation # [id number] Dictation # [id number] en [id number]
--- NOTE | 2016-07-06 07:51 | PN ---
DATE: 07/06/2016(635am--725am) SUBJECTIVE: The patient appears comfortable this morning. He is currently extubated. He is not short of breath at rest. OBJECTIVE: VITAL SIGNS: Temperature is 97.5, pulse on the monitor is 78, respirations 17, blood pressure 190/106. Oxygen saturation on nasal cannula is 97%. HEENT: Normocephalic, atraumatic. No JVD. CARDIOVASCULAR: Systolic ejection murmur at the lower left sternal border. No S3 gallop. LUNGS: Better breath sounds at the bases. Less rhonchi. No wheezing. EXTREMITIES: Mild edema. No cyanosis, no clubbing. Calves are nontender to palpation. GASTROINTESTINAL: Abdomen is soft, nontender, nondistended. Bowel sounds are positive. SKIN: Reveals evidence of cellulitis on both lower extremities (anterior aspects). NEUROLOGIC: Limited at the present time. PERTINENT LABORATORY DATA: Chest x-ray was done this morning and reviewed. There are no significant changes noted on this film. I do not appreciate any significant infiltrates. Arterial blood gas was done on nasal cannula. Results are: pH 7.43, pCO2 of 39, pO2 of 88. IMPRESSION: 1. Hypercarbic respiratory failure. 2. Severe sepsis. 3. Bilateral cellulitis. 4. Chronic obstructive pulmonary disease. 5. Renal insufficiency. 6. Acute myocardial infarction. 7. Mild anemia. PLAN: The patient is now extubated and remains in the ICU. He is comfortable at rest and not short of breath. He states he is feeling much better overall. I did discuss the case with the night nurse at length. The night nurse stated that the patient is doing very well overall. I did review the x-ray as above. The x-ray shows no significant infiltrates. I have also reviewed the arterial blood gas. The arterial blood gas is significantly improved with normalization of the pH and with no significant alveolar arterial gradient. I will continue with the current nebulizer treatments for now. The patient remains on antibiotic therapy - as per infectious disease. Temperatures have resolved. The leukocytosis is also resolving. Cardiology evaluation is also ongoing. Input by Dr. Olmedo is noted. Clinical status of the patient is significantly improved - compared to last week. However, again, the overall status/prognosis of this patient does remain guarded. I will discuss the above with the entire ICU team in the next few moments. I will also discuss the above with the attending physician. Ken Mancini MD cc: [id number] TT: 07/06/2016 07:50:17 Confirmation # [id number] Dictation # [id number] mn CODY
[2016-07-06] MEDS ORDERED: Potassium Chloride 20 mEq ER Tab PO ONE (08:18)
[2016-07-06 08:52] LABS: PHOSPHOROUS 2.9 mg/dL (2.5-4.5)
--- NOTE | 2016-07-06 09:01 | CP.PCM.PN ---
Subjective - Date & Time of Evaluation Date of Evaluation: 07/06/16 Time of Evaluation: 08:20 - Subjective Subjective: Patient is now extubated, awake and alert, afebrile overnight, feeling better. Objective - Vital Signs/Intake and Output Vital Signs (last 24 hours): Temp Pulse Resp BP Pulse Ox 97.5 F L 104 H 17 190/106 H 94 L 07/06/16 04:00 07/06/16 05:28 07/06/16 05:00 07/06/16 05:00 07/06/16 05:00 Intake and Output: 07/06/16 07/06/16 06:59 18:59 Intake Total 2138 Output Total 1250 Balance 888 - Medications Medications: Current Medications Acetaminophen (Tylenol 325mg Tab) 650 mg PO Q4 PRN PRN Reason: Fever >100.4 F Last Admin: 06/30/16 09:15 Dose: 650 mg Albuterol/Ipratropium (Duoneb 3 Mg/0.5 Mg (3 Ml) Ud) 3 ml IH [id number] SARAH Last Admin: 07/06/16 07:07 Dose: 3 ml Alprazolam (Xanax) 0.25 mg PO Q6 PRN; Protocol PRN Reason: Anxiety Stop: 07/11/16 12:01 Last Admin: 07/06/16 05:05 Dose: 0.25 mg Aspirin (Aspirin) 325 mg PO DAILY [facility] Last Admin: 07/05/16 10:32 Dose: Not Given Clotrimazole (Lotrimin 1%) 0 gm TOP BID [facility] Last Admin: 07/05/16 18:01 Dose: 1 applic Hydralazine HCl (Apresoline) 10 mg IVP Q6 PRN PRN Reason: Systolic Blood Pressure Last Admin: 07/06/16 02:46 Dose: 10 mg Heparin Sodium/Sodium Chloride (Heparin 00492 Units/250ml 1/2 Normal Saline) 250 mls @ 13.63 mls/hr IV .[id number] SARAH; 12 UNITS/KG/HR PRN Reason: Protocol Last Admin: 07/05/16 13:25 Dose: 12.494 mls/hr Meropenem 1g/NS 100mL IVPB (Meropenem 1g/Ns 100ml Ivpb) 100 mls @ 100 mls/hr IVPB Q12 SARAH PRN Reason: Protocol Stop: 07/12/16 08:31 Last Admin: 07/05/16 22:02 Dose: 100 mls/hr Metoprolol Tartrate (Lopressor) 2.5 mg IV Q8H [facility] Last Admin: 07/06/16 01:46 Dose: 2.5 mg Morphine Sulfate (Morphine) 1 mg IVP Q4H PRN PRN Reason: Pain, moderate (4-7) Last Admin: 07/05/16 23:16 Dose: 1 mg Pantoprazole Sodium (Protonix Inj) 40 mg IVP DAILY [facility] Last Admin: 07/05/16 09:26 Dose: 40 mg Silver Sulfadiazine (Silvadene 1% 20 Gm) 0 ea TOP DAILY [facility] Last Admin: 07/05/16 10:40 Dose: 1 applic - Labs Labs: 07/06/16 06:20 07/06/16 06:20 PT 12.1 Seconds (9.9-11.8) H 07/02/16 06:15 INR 1.12 (0.93-1.08) H 07/02/16 06:15 APTT 69.6 Seconds (23.7-30.8) H 07/06/16 01:55 - Constitutional Appears: Non-toxic, No Acute Distress - Head Exam Head Exam: NORMAL INSPECTION - ENT Exam ENT Exam: Mucous Membranes Moist - Neck Exam Neck Exam: absent: Lymphadenopathy, Meningismus - Respiratory Exam Respiratory Exam: Decreased Breath Sounds - Cardiovascular Exam Cardiovascular Exam: +S1, +S2 - GI/Abdominal Exam GI & Abdominal Exam: Soft. absent: Tenderness - Extremities Exam Additional comments: both lower extremities with some erythema and swelling, which has improved Assessment and Plan - Assessment and Plan (Free Text) Plan: Assessment severe sepsis S/P shock S/P ventilator-dependent respiratory failure with acute on chronic renal failure due to Group G strep bacteremia, probably secondary to bilateral lower extremities skin and skin structure infection; also with MSSA from the wound cultures; so far no evidence of new infection; patient is clinically improving acute rhabdomyolysis consider acute NSTEMI HTN chronic renal failure dementia obesity with BMI 38 Plan continue renally-adjusted Merrem (day 7 from first negative blood cx); repeat septic work up so far negative, PCT is improving; CXR does not show focal infiltrates; if cultures continue to be negative, will switch back to Rocephin to finish the 28 day course 2D echocardiogram does not show vegetations will continue to monitor clinically
[2016-07-06] MEDS: Clotrimazole 1% Cream(30 gm) TOP SCH ×2 (09:08→17:34)
[2016-07-06] MEDS: Silver Sulfadiazine 1% Cream (20 gm) TOP SCH (09:09)
--- NOTE | 2016-07-06 09:21 | PN ---
DATE: 07/06/2016 This is an 80-year-old male seen for lower extremity ulcerations. The patient is seen in CCU. The p atient is extubated and he is answering questions. VITAL SIGNS: Noted with his pulse at 104. His blood pressure was 190/106. Oxygen sat was 94. LABORATORY DATA: Reviewed. His white blood cell count is 11.8, the H and H is 11.1 and 33.6, and hi s platelets are 222. The patient's chemistry shows a random glucose at 148. His uric acid was 8.3. His AST and ALT were elevated 134/135, although this has come down. His troponin is 5.25. His tota l protein was 5.6 and albumin is 2.6. The patient's microbiology shows that his left foot grew sensi tive Staph aureus. The blood was growing group G strep. PHYSICAL EXAMINATION: The patient's lower extremities were reviewed. The patient was seen at [facility]. His dressings are clean, dry and intact to his shins where he has 2 open blisters. His foot has no open wounds. He did have an open fissure at the plantar first MPJ; this was debrided upon his fir st initial presentation to the Emergency Room. At that time we saw him, there was some redness aroun d the foot; however, there was no fluctuance, there was no pus, and there was no ascending cellulitis . There was an erythema at that time greater than 2 cm. However, at this time there is no erythema to the foot. There is no open wound to the foot. There is no edema to the foot. There is no increa sed temperature gradient to the foot. The 2 leg ulcerations are superficial open blisters. May be g danitza when he was on the floor at home waiting to be picked up when he fell. The knee has an eschar and that is from the fall at home. ASSESSMENT: A diabetic with 2 small open blisters to his lower legs. PLAN OF TREATMENT: I am not sure if this patient's sepsis came from his foot. At this time there ar e no signs of infection in the foot and there are no open ulcerations. The patient's feet are being treated with Lotrimin. He does have severe fungal infection to the feet. The wounds are being dress ed with Maxorb and Optifoam. We are ordering heel pads to keep his heels off the bed to prevent ulce rations. At this time, his feet are elevated with a heel wedge. The patient will be seen and follow ed. Megan Hay DPM cc: [id number] TT: 07/06/2016 09:21:16 Confirmation # [id number] Dictation # [id number] mn
--- NOTE | 2016-07-06 10:10 | RAD ---
HISTORY: intubated COMPARISON: 07/05/2016 at 5:26 a.m. FINDINGS: LUNGS: Lung volumes are shallow. Mild pulmonary venous congestion suggested slightly increased in conspicuity . Although the history states intubated, no endotracheal tube is appreciated. The prior endotracheal tube is no longer present. No interval consolidation noted. Interval left mid lung zone discoid atelectasis PLEURA: Left pleural effusion and Arana allowing for differences in technique CARDIOVASCULAR: Mild cardiomegaly OSSEOUS STRUCTURES: No significant abnormalities. VISUALIZED UPPER ABDOMEN: Normal. OTHER FINDINGS: Left PICC line tip in right atrium as before. Prior NG tube removed IMPRESSION: Cardiomegaly with mild pulmonary venous congestion which appears increased slightly since the prior exam. Similar left pleural effusion Prior NG tube removed. Left PICC line unchanged
[2016-07-06] MEDS: Meropenem 1g/NS 100mL IVPB 100 ML IVPB SCH ×2 (10:11→21:44)
--- NOTE | 2016-07-06 10:45 | PN ---
DATE: 07/06/2016 SUBJECTIVE: The patient is seen sitting up in bed in the CCU. He is feeling somewhat better. He is currently taking clear liquids. He is breathing comfortably. CURRENT MEDICATIONS: Include aspirin, IV heparin, DuoNeb inhaler, metoprolol 2.5 mg IV q. 12 hours, meropenem, morphine p.r.n., Norvasc 10 mg daily, Protonix 40 mg daily, and Xanax p.r.n. OBJECTIVE: GENERAL: He is an elderly man who appears in no distress at present. VITAL SIGNS: Blood pressure is 112/60 with occasional spikes over 200 systolic. Pulse is 88 and irr egularly irregular. Respirations are 14. He is afebrile. HEENT: No JVD. CHEST: Bilateral scattered rhonchi. HEART: PMI displaced laterally with an irregularly irregular rhythm and a systolic murmur at the lef t sternal border. ABDOMEN: Soft, nontender, normoactive bowel sounds. EXTREMITIES: Bilateral chronic cellulitic changes are present. 1+ edema is present as well. DIAGNOSTIC DATA: Potassium is 3.2. BUN and creatinine are 62 and 1.3. White count 11.8, hemoglobin and hematocrit 11.1 and 33.6 with platelet count of 222,000. AST and ALT 134 and 135. Chest x-ray reveals poor inspiratory effort, borderline cardiac silhouette enlargement, and mild eliza hilar vascular congestion in part may be related to poor inspiratory effort and technique. IMPRESSION: 1. Status post respiratory failure likely secondary to excessive sedation, currently extubated. 2. Paroxysmal atrial fibrillation. 3. Resolving renal failure. 4. Bilateral leg cellulitis. 5. Probable coronary artery disease. RECOMMENDATIONS: Continued supportive care is advised. If he is able to take oral intake, his metop rolol can be switched from IV to oral form again. Anticoagulation with heparin will be continued. H owever, long-term anticoagulation may be too risky if he has evidence of high fall risk. We will con tinue to follow along and make further recommendations as appropriate. Ashish Willis MD cc: [id number] TT: 07/06/2016 10:44:28 Confirmation # [id number] Dictation # [id number] natasha
--- NOTE | 2016-07-06 10:59 | CP.CCUPN ---
<Pippa Tineo - Last Filed: 07/06/16 10:56> CCU Subjective - Physician Review Events Since Last Encounter (Free Text): 07/06/16 10:57 Patient seen and examined bedside. No acute events overnight. Patient successfully extubated yesterday, doing well on NC. Denies CP, SOB, Abd pain, n/ v, fevers, chills. Tolerating FLD without nausea or abdominal pain. Critical Care Time Spent (in minutes): 30 CCU Objective - Vital Signs / Intake & Output Vital Signs (Last 4 hours): Vital Signs Pulse BP 07/06/16 09:04 88 112/60 07/06/16 08:47 80 153/56 H Intake and Output (Last 8hrs): Intake & Output 07/05/16 07/06/16 07/06/16 22:59 06:59 14:59 Intake Total 2572 2138 Output Total 1300 1250 Balance 1272 888 Weight 252 lb 252 lb Intake: IV 1252 1388 Left Forearm 135 144 Left Upper arm 1117 1244 Oral 1320 750 Output: Urine 1300 1250 Urethral (Jc) 1300 1250 Oral Regurgitation 0 Other: Voiding Method Indwelling Catheter # Bowel Movements 0 - Physical Exam Head: Positive for: Atraumatic, Normocephalic. Negative for: Abrasion, Laceration Pupils: Positive for: PERRL Extroacular Muscles: Positive for: EOMI. Negative for: Entrapment Conjunctiva: Positive for: Normal. Negative for: Injected Mouth: Positive for: Moist Mucous Membranes Respiratory/Chest: Positive for: Clear to Auscultation, Good Air Exchange, Tachypneic. Negative for: Respiratory Distress, Accessory Muscle Use Cardiovascular: Positive for: Regular Rate and Rhythm, Normal S1, S2. Negative for: Murmurs Abdomen: Positive for: Normal Bowel Sounds. Negative for: Tenderness, Distention, Peritoneal Signs Upper Extremity: Positive for: Normal Inspection, NORMAL PULSES, Neurovascularly Intact. Negative for: Cyanosis, Edema Lower Extremity: Positive for: Normal Inspection, Tenderness, Neurovascularly Intact, Other (abrasion right wright, chronic venous stasis changes foot and ankle B/L). Negative for: Edema, NORMAL PULSES (diminished PT and DP pulse B/L) , Swelling, Deformity Neurological: Positive for: GCS=15, CN II-XII Intact Skin: Positive for: Warm, Dry, Abrasion Psychiatric: Positive for: Alert, Oriented x 3 - Medications Active Medications: Active Medications Generic Name Dose Route Start Last Admin Trade Name Freq PRN Reason Stop Dose Admin Acetaminophen 650 mg 06/29/16 11:33 06/30/16 09:15 Tylenol 325mg Tab PO 650 mg Q4 PRN Administration Fever >100.4 F Albuterol/Ipratropium 3 ml 07/05/16 08:00 07/06/16 07:07 Duoneb 3 Mg/0.5 Mg (3 Ml) Ud IH 3 ml [id number] SARAH Administration Alprazolam 0.25 mg 07/04/16 08:42 07/06/16 05:05 Xanax PO 07/11/16 12:01 0.25 mg Q6 PRN Administration Anxiety Protocol Amlodipine Besylate 10 mg 07/06/16 10:00 07/06/16 09:04 Norvasc PO 10 mg DAILY SARAH Administration Aspirin 325 mg 07/02/16 10:00 07/06/16 09:04 Aspirin PO 325 mg DAILY SARAH Administration Clotrimazole 0 gm 06/29/16 18:00 07/06/16 09:08 Lotrimin 1% TOP 1 applic BID SARAH Administration Hydralazine HCl 10 mg 07/05/16 18:01 07/06/16 02:46 Apresoline IVP 10 mg Q6 PRN Administration Systolic Blood Pressure Heparin Sodium/Sodium Chloride 250 mls @ 13.63 mls/hr 07/04/16 21:30 07/05/16 13:25 Heparin 54803 Units/250ml 1/2 Normal Saline IV 12.494 mls/hr .[id number] SARAH Administration Protocol 12 UNITS/KG/HR Meropenem 1g/NS 100mL IVPB 100 mls @ 100 mls/hr 07/05/16 08:30 07/06/16 10:11 Meropenem 1g/Ns 100ml Ivpb IVPB 07/12/16 08:31 100 mls/hr Q12 SARAH Administration Protocol Metoprolol Tartrate 2.5 mg 07/05/16 09:00 07/06/16 08:47 Lopressor IV 2.5 mg Q8H SARAH Administration Morphine Sulfate 1 mg 06/29/16 12:41 07/05/16 23:16 Morphine IVP 1 mg Q4H PRN Administration Pain, moderate (4-7) Pantoprazole Sodium 40 mg 07/04/16 16:00 07/06/16 09:07 Protonix Inj IVP 40 mg DAILY SARAH Administration Silver Sulfadiazine 0 ea 07/02/16 10:00 07/06/16 09:09 Silvadene 1% 20 Gm TOP 1 applic DAILY SARAH Administration - Patient Studies Lab Studies: Microbiology Studies 07/04/16 23:05 Gram Stain - Final Trachasp Sputum Culture - Final Yeast Species 07/04/16 16:00 MRSA Culture (Admit) - Final Naris MRSA NOT DETECTED 07/04/16 16:00 Blood Culture - Preliminary Blood-Venous NO GROWTH AFTER 24 HOURS 07/04/16 15:30 Blood Culture - Preliminary Blood-Venous NO GROWTH AFTER 24 HOURS 06/30/16 15:50 Blood Culture - Final Blood-Venous NO GROWTH AFTER 5 DAYS Gram Stain - Final TEST NOT PERFORMED 06/30/16 15:30 Blood Culture - Final Blood-Venous NO GROWTH AFTER 5 DAYS Gram Stain - Final TEST NOT PERFORMED Lab Studies 07/06/16 07/06/16 07/06/16 Range/Units 06:20 05:20 01:55 WBC 11.8 H (4.5-11.0) 10^3/ul RBC 4.07 (3.5-6.1) 10^6/uL Hgb 11.1 L (14.0-18.0) gm/dL Hct 33.6 L (42.0-52.0) % MCV 82.6 (80.0-105.0) fL MCH 27.3 (25.0-35.0) pg MCHC 33.0 (31.0-37.0) g/dl RDW 14.7 H (11.5-14.5) % Plt Count 222 (120.0-450.0) 10^3/uL MPV 9.1 (7.0-11.0) fl APTT 69.6 H (23.7-30.8) Seconds pCO2 39 (35-45) mm/Hg pO2 88.0 (80-100) mm/Hg HCO3 25.9 (21-28) mmol/L ABG pH 7.43 (7.35-7.45) ABG Total CO2 27.1 (22-28) mmol.L ABG O2 Saturation 97.5 (95-98) % ABG O2 Content 25.9 H (15-23) ML/dl ABG Base Excess 1.6 (-2.0-3.0) mmol/L ABG Hemoglobin 19.4 H (11.7-17.4) g/dL ABG Carboxyhemoglobin 1.7 H (0.5-1.5) % POC ABG HHb (Measured) 2.4 (0-5) % ABG Methemoglobin 0.9 (0.0-3.0) % ABG O2 Capacity 26.6 H (16-24) mL/dl Hgb O2 Saturation 95.1 (95.0-98.0) % FiO2 28.0 % Sodium 142 (132-148) mmol/L Potassium 3.2 L (3.6-5.0) mmol/L Chloride 106 (98-107) mmol/L Carbon Dioxide 27 (21-33) mmol/L Anion Gap 12 (10-20) BUN 62 H (7-21) mg/dL Creatinine 1.3 (0.5-1.4) mg/dL Est GFR ( Amer) > 60 Est GFR (Non-Af Amer) 53 Random Glucose 148 H (70-110) mg/dL Calcium 8.3 L (8.4-10.5) mg/dL Phosphorus 2.9 (2.5-4.5) mg/dL Magnesium 2.0 (1.7-2.2) mg/dL Total Bilirubin 0.7 (0.2-1.3) mg/dL AST 134 H (15-59) U/L ALT 135 H (7-56) U/L Alkaline Phosphatase 74 (38-133) U/L Total Protein 5.6 L (5.8-8.3) g/dL Albumin 2.6 L (3.0-4.8) g/dL Albumin (PEP) (3.8-4.8) g/dL Globulin 3.0 gm/dL Albumin/Globulin Ratio 0.9 L (1.1-1.8) Wllid-8-Rfkgsiwgf (0.2-0.3) g/dL Djtub-5-Ldzjpihal (0.5-0.9) g/dL Kluu-8-Ggtcdmjr (0.4-0.6) g/dL Xmox-6-Tzaoqtua (0.2-0.5) g/dL Gamma Globulins (0.8-1.7) g/dL Abnorm Protein Band 1 Abnorm Protein Band 2 Abnorm Protein Band 3 GAIL & SPEP Interp (()) Serum Immunofixation (()) Urine Immunofixation (()) JOSEFA Screen (Negative) ANCA Screen (NEGATIVE) c-ANCA Titer Proteinase 3 (PR3) (<1.0) AI p-ANCA Titer Atypical p-ANCA Titer Myeloperoxidase Ab (<1.0) AI 07/05/16 07/05/16 07/02/16 Range/Units 19:58 12:30 06:15 WBC (4.5-11.0) 10^3/ul RBC (3.5-6.1) 10^6/uL Hgb (14.0-18.0) gm/dL Hct (42.0-52.0) % MCV (80.0-105.0) fL MCH (25.0-35.0) pg MCHC (31.0-37.0) g/dl RDW (11.5-14.5) % Plt Count (120.0-450.0) 10^3/uL MPV (7.0-11.0) fl APTT 63.7 H 37.0 H (23.7-30.8) Seconds pCO2 (35-45) mm/Hg pO2 (80-100) mm/Hg HCO3 (21-28) mmol/L ABG pH (7.35-7.45) ABG Total CO2 (22-28) mmol.L ABG O2 Saturation (95-98) % ABG O2 Content (15-23) ML/dl ABG Base Excess (-2.0-3.0) mmol/L ABG Hemoglobin (11.7-17.4) g/dL ABG Carboxyhemoglobin (0.5-1.5) % POC ABG HHb (Measured) (0-5) % ABG Methemoglobin (0.0-3.0) % ABG O2 Capacity (16-24) mL/dl Hgb O2 Saturation (95.0-98.0) % FiO2 % Sodium (132-148) mmol/L Potassium (3.6-5.0) mmol/L Chloride (98-107) mmol/L Carbon Dioxide (21-33) mmol/L Anion Gap (10-20) BUN (7-21) mg/dL Creatinine (0.5-1.4) mg/dL Est GFR ( Amer) Est GFR (Non-Af Amer) Random Glucose (70-110) mg/dL Calcium (8.4-10.5) mg/dL Phosphorus (2.5-4.5) mg/dL Magnesium (1.7-2.2) mg/dL Total Bilirubin (0.2-1.3) mg/dL AST (15-59) U/L ALT (7-56) U/L Alkaline Phosphatase (38-133) U/L Total Protein (5.8-8.3) g/dL Albumin (3.0-4.8) g/dL Albumin (PEP) 2.4 L (3.8-4.8) g/dL Globulin gm/dL Albumin/Globulin Ratio (1.1-1.8) Dukbs-5-Oyjfwlzqv 0.5 H (0.2-0.3) g/dL Kkwrj-1-Gbakyhxjv 1.0 H (0.5-0.9) g/dL Qfcv-9-Uhsxkuvt 0.4 (0.4-0.6) g/dL Ignd-9-Njxykugs 0.5 (0.2-0.5) g/dL Gamma Globulins 0.6 L (0.8-1.7) g/dL Abnorm Protein Band 1 TEST NOT PERFORMED Abnorm Protein Band 2 TEST NOT PERFORMED Abnorm Protein Band 3 TEST NOT PERFORMED GAIL & SPEP Interp See note (()) Serum Immunofixation See note (()) Urine Immunofixation (()) JOSEFA Screen Negative (Negative) ANCA Screen Negative (NEGATIVE) c-ANCA Titer TNP Proteinase 3 (PR3) <1.0 (<1.0) AI p-ANCA Titer TNP Atypical p-ANCA Titer TNP Myeloperoxidase Ab <1.0 (<1.0) AI 07/01/16 Range/Units 12:00 WBC (4.5-11.0) 10^3/ul RBC (3.5-6.1) 10^6/uL Hgb (14.0-18.0) gm/dL Hct (42.0-52.0) % MCV (80.0-105.0) fL MCH (25.0-35.0) pg MCHC (31.0-37.0) g/dl RDW (11.5-14.5) % Plt Count (120.0-450.0) 10^3/uL MPV (7.0-11.0) fl APTT (23.7-30.8) Seconds pCO2 (35-45) mm/Hg pO2 (80-100) mm/Hg HCO3 (21-28) mmol/L ABG pH (7.35-7.45) ABG Total CO2 (22-28) mmol.L ABG O2 Saturation (95-98) % ABG O2 Content (15-23) ML/dl ABG Base Excess (-2.0-3.0) mmol/L ABG Hemoglobin (11.7-17.4) g/dL ABG Carboxyhemoglobin (0.5-1.5) % POC ABG HHb (Measured) (0-5) % ABG Methemoglobin (0.0-3.0) % ABG O2 Capacity (16-24) mL/dl Hgb O2 Saturation (95.0-98.0) % FiO2 % Sodium (132-148) mmol/L Potassium (3.6-5.0) mmol/L Chloride (98-107) mmol/L Carbon Dioxide (21-33) mmol/L Anion Gap (10-20) BUN (7-21) mg/dL Creatinine (0.5-1.4) mg/dL Est GFR ( Amer) Est GFR (Non-Af Amer) Random Glucose (70-110) mg/dL Calcium (8.4-10.5) mg/dL Phosphorus (2.5-4.5) mg/dL Magnesium (1.7-2.2) mg/dL Total Bilirubin (0.2-1.3) mg/dL AST (15-59) U/L ALT (7-56) U/L Alkaline Phosphatase (38-133) U/L Total Protein (5.8-8.3) g/dL Albumin (3.0-4.8) g/dL Albumin (PEP) (3.8-4.8) g/dL Globulin gm/dL Albumin/Globulin Ratio (1.1-1.8) Zakka-0-Jlrozgzlq (0.2-0.3) g/dL Zlhiy-3-Luwrlbgar (0.5-0.9) g/dL Mjzy-7-Ljjctjjj (0.4-0.6) g/dL Mdqb-2-Qeiytqtm (0.2-0.5) g/dL Gamma Globulins (0.8-1.7) g/dL Abnorm Protein Band 1 Abnorm Protein Band 2 Abnorm Protein Band 3 GAIL & SPEP Interp (()) Serum Immunofixation (()) Urine Immunofixation See note (()) JOSEFA Screen (Negative) ANCA Screen (NEGATIVE) c-ANCA Titer Proteinase 3 (PR3) (<1.0) AI p-ANCA Titer Atypical p-ANCA Titer Myeloperoxidase Ab (<1.0) AI Laboratory Results - last 24 hr 07/01/16 07/02/16 07/05/16 12:00 06:15 12:30 WBC RBC Hgb Hct MCV MCH MCHC RDW Plt Count MPV APTT 37.0 H pCO2 pO2 HCO3 ABG pH ABG Total CO2 ABG O2 Saturation ABG O2 Content ABG Base Excess ABG Hemoglobin ABG Carboxyhemoglobin POC ABG HHb (Measured) ABG Methemoglobin ABG O2 Capacity Hgb O2 Saturation FiO2 Sodium Potassium Chloride Carbon Dioxide Anion Gap BUN Creatinine Est GFR ( Amer) Est GFR (Non-Af Amer) Random Glucose Calcium Phosphorus Magnesium Total Bilirubin AST ALT Alkaline Phosphatase Total Protein Albumin Albumin (PEP) 2.4 L Globulin Albumin/Globulin Ratio Ififc-3-Vxmfsknfc 0.5 H Oqpnc-8-Klyzshkey 1.0 H Wnvd-2-Btckbkce 0.4 Rpow-3-Kneiqype 0.5 Gamma Globulins 0.6 L Abnorm Protein Band 1 TEST NOT PERFORMED Abnorm Protein Band 2 TEST NOT PERFORMED Abnorm Protein Band 3 TEST NOT PERFORMED GAIL & SPEP Interp See note Serum Immunofixation See note Urine Immunofixation See note JOSEFA Screen Negative ANCA Screen Negative c-ANCA Titer TNP Proteinase 3 (PR3) <1.0 p-ANCA Titer TNP Atypical p-ANCA Titer TNP Myeloperoxidase Ab <1.0 07/05/16 07/06/16 07/06/16 19:58 01:55 05:20 WBC RBC Hgb Hct MCV MCH MCHC RDW Plt Count MPV APTT 63.7 H 69.6 H pCO2 39 pO2 88.0 HCO3 25.9 ABG pH 7.43 ABG Total CO2 27.1 ABG O2 Saturation 97.5 ABG O2 Content 25.9 H ABG Base Excess 1.6 ABG Hemoglobin 19.4 H ABG Carboxyhemoglobin 1.7 H POC ABG HHb (Measured) 2.4 ABG Methemoglobin 0.9 ABG O2 Capacity 26.6 H Hgb O2 Saturation 95.1 FiO2 28.0 Sodium Potassium Chloride Carbon Dioxide Anion Gap BUN Creatinine Est GFR ( Amer) Est GFR (Non-Af Amer) Random Glucose Calcium Phosphorus Magnesium Total Bilirubin AST ALT Alkaline Phosphatase Total Protein Albumin Albumin (PEP) Globulin Albumin/Globulin Ratio Rkyjp-6-Rjvqtykwp Deiwq-9-Hrfuhklzj Tnwt-7-Cvwuiads Ayif-0-Ixndritr Gamma Globulins Abnorm Protein Band 1 Abnorm Protein Band 2 Abnorm Protein Band 3 GAIL & SPEP Interp Serum Immunofixation Urine Immunofixation JOSEFA Screen ANCA Screen c-ANCA Titer Proteinase 3 (PR3) p-ANCA Titer Atypical p-ANCA Titer Myeloperoxidase Ab 07/06/16 06:20 WBC 11.8 H RBC 4.07 Hgb 11.1 L Hct 33.6 L MCV 82.6 MCH 27.3 MCHC 33.0 RDW 14.7 H Plt Count 222 MPV 9.1 APTT pCO2 pO2 HCO3 ABG pH ABG Total CO2 ABG O2 Saturation ABG O2 Content ABG Base Excess ABG Hemoglobin ABG Carboxyhemoglobin POC ABG HHb (Measured) ABG Methemoglobin ABG O2 Capacity Hgb O2 Saturation FiO2 Sodium 142 Potassium 3.2 L Chloride 106 Carbon Dioxide 27 Anion Gap 12 BUN 62 H Creatinine 1.3 Est GFR ( Amer) > 60 Est GFR (Non-Af Amer) 53 Random Glucose 148 H Calcium 8.3 L Phosphorus 2.9 Magnesium 2.0 Total Bilirubin 0.7 AST 134 H ALT 135 H Alkaline Phosphatase 74 Total Protein 5.6 L Albumin 2.6 L Albumin (PEP) Globulin 3.0 Albumin/Globulin Ratio 0.9 L Auuwp-9-Bwiulzmmw Cdcci-5-Mobpzinjl Osfn-1-Pdfsqlnx Fvrf-6-Hclewbbt Gamma Globulins Abnorm Protein Band 1 Abnorm Protein Band 2 Abnorm Protein Band 3 GAIL & SPEP Interp Serum Immunofixation Urine Immunofixation JOSEFA Screen ANCA Screen c-ANCA Titer Proteinase 3 (PR3) p-ANCA Titer Atypical p-ANCA Titer Myeloperoxidase Ab Review of Systems - Constitutional Constitutional: absent: Fever, Chills - EENT Eyes: absent: Change in Vision Ears: absent: Dizziness - Cardiovascular Cardiovascular: absent: Chest Pain, Diaphoresis - Respiratory Respiratory: absent: Cough, Dyspnea - Genitourinary Genitourinary: absent: Dysuria, Flank Pain - Integumentary Integumentary: absent: New Lesions - Neurological Neurological: absent: Dizziness, Focal Weakness Critical Care Progress Note - Ventilator Checklist PUD Prophalyxis: Yes DVT Prophylaxis: Yes - Prophylaxis GI Prophylaxis GI: PPI - Prophylaxis DVT Prophylaxis DVT: Heparin SQ - Nutrition Nutrition: Nutrition Category Date Time Status Heart Healthy Diet [DIET] Diets 07/06/16 Lunch Ordered Liquid Diet [DIET] Diets 07/05/16 Lunch Ordered Assessment/Plan - Assessment and Plan (Free Text) Assessment: 80 yo M w h/o HTN, COPD, obesity, dementia initially admitted to [facility] with Group G strep bacteremia, L foot MSSA infection transferred to ICU s/p HOOP RIVETER due to hypoxic, hypercarbic RF requiring intubation, now s/p extubation yesterday, off vasopressors, new troponin elevations without EKG or ECHO changes Plan: Neuro: AAOx3, NAD, s/p extubation this AM, tolerating NC, able to clear secretions and protect airway Pulm: Hypercarbic RF 2/2 Ativan with hypoventilation, patient was difficult to arouse, GCS worrisome for protecting airway requiring intubation now s/p extubation, tolerating NC, able to clear secretions and protect airway. ABG reviewed Duonebs Q6hr CV: Off vasopressors. New troponin elevation now to 5.25. EKG and 2D ECHO show no new changes. Continue heparin drip. Management as per cardiology service. Continue Heparin drip for now pending further cardio recs Continue cardiac meds as per cardio service GI: GI ppx Transaminitis continue to improve. Continue monitoring Renal: Stress dose steroids. INEZ (unknown baseline) resolved. Continue IVF as per primary team Endo: No acute issues. Maintain euglycemia 140-180 ID: Continue Meropenem for L foot MSSA cellulitis, Group G Strep bacteremia. Procalcitonin trending down 7.36 from 31.55 Repeat Blood cultures have been negative thus far Heme: Hb stable. No signs of bleeding. DVT/GI ppx: Heparin gtt, protonix, HHD Dispo: Transfer to telemetry - Date & Time Date: 07/06/16 Time: 10:59 <Loco Villagran - Last Filed: 07/06/16 16:42> CCU Objective - Vital Signs / Intake & Output Intake and Output (Last 8hrs): Intake & Output 07/06/16 07/06/16 07/06/16 06:59 14:59 22:59 Intake Total 2138 Output Total 1250 Balance 888 Weight 252 lb 252 lb Intake: IV 1388 Left Forearm 144 Left Upper arm 1244 Oral 750 Output: Urine 1250 Urethral (Jc) 1250 Oral Regurgitation 0 Other: # Bowel Movements 0 - Medications Active Medications: Active Medications Generic Name Dose Route Start Last Admin Trade Name Freq PRN Reason Stop Dose Admin Acetaminophen 650 mg 06/29/16 11:33 06/30/16 09:15 Tylenol 325mg Tab PO 650 mg Q4 PRN Administration Fever >100.4 F Albuterol/Ipratropium 3 ml 07/05/16 08:00 07/06/16 13:12 Duoneb 3 Mg/0.5 Mg (3 Ml) Ud IH 3 ml Q8FOINE SARAH Administration Alprazolam 0.25 mg 07/04/16 08:42 07/06/16 05:05 Xanax PO 07/11/16 12:01 0.25 mg Q6 PRN Administration Anxiety Protocol Amlodipine Besylate 10 mg 07/06/16 10:00 07/06/16 09:04 Norvasc PO 10 mg DAILY SARAH Administration Aspirin 325 mg 07/02/16 10:00 07/06/16 09:04 Aspirin PO 325 mg DAILY SARAH Administration Clotrimazole 0 gm 06/29/16 18:00 07/06/16 09:08 Lotrimin 1% TOP 1 applic BID SARAH Administration Hydralazine HCl 10 mg 07/05/16 18:01 07/06/16 02:46 Apresoline IVP 10 mg Q6 PRN Administration Systolic Blood Pressure Heparin Sodium/Sodium Chloride 250 mls @ 13.63 mls/hr 07/04/16 21:30 07/05/16 13:25 Heparin 00687 Units/250ml 1/2 Normal Saline IV 12.494 mls/hr .[id number] SARAH Administration Protocol 12 UNITS/KG/HR Meropenem 1g/NS 100mL IVPB 100 mls @ 100 mls/hr 07/05/16 08:30 07/06/16 10:11 Meropenem 1g/Ns 100ml Ivpb IVPB 07/12/16 08:31 100 mls/hr Q12 SARAH Administration Protocol Metoprolol Tartrate 50 mg 07/06/16 18:00 Lopressor PO 0800,1800 SARAH Morphine Sulfate 1 mg 06/29/16 12:41 07/05/16 23:16 Morphine IVP 1 mg Q4H PRN Administration Pain, moderate (4-7) Pantoprazole Sodium 40 mg 07/07/16 06:30 Protonix Ec Tab PO 0630 SARAH Silver Sulfadiazine 0 ea 07/02/16 10:00 07/06/16 09:09 Silvadene 1% 20 Gm TOP 1 applic DAILY SARAH Administration - Patient Studies Lab Studies: Microbiology Studies 07/04/16 16:00 Blood Culture - Preliminary Blood-Venous NO GROWTH AFTER 48 HOURS 07/04/16 15:30 Blood Culture - Preliminary Blood-Venous NO GROWTH AFTER 48 HOURS 07/04/16 18:30 Urine Culture - Final Urine,Jc No Growth (<1,000 CFU/ML) 07/04/16 23:05 Gram Stain - Final Trachasp Sputum Culture - Final Yeast Species 07/04/16 16:00 MRSA Culture (Admit) - Final Naris MRSA NOT DETECTED 06/30/16 15:50 Blood Culture - Final Blood-Venous NO GROWTH AFTER 5 DAYS Gram Stain - Final TEST NOT PERFORMED 06/30/16 15:30 Blood Culture - Final Blood-Venous NO GROWTH AFTER 5 DAYS Gram Stain - Final TEST NOT PERFORMED Lab Studies 07/06/16 07/06/16 07/06/16 Range/Units 06:20 05:20 01:55 WBC 11.8 H (4.5-11.0) 10^3/ul RBC 4.07 (3.5-6.1) 10^6/uL Hgb 11.1 L (14.0-18.0) gm/dL Hct 33.6 L (42.0-52.0) % MCV 82.6 (80.0-105.0) fL MCH 27.3 (25.0-35.0) pg MCHC 33.0 (31.0-37.0) g/dl RDW 14.7 H (11.5-14.5) % Plt Count 222 (120.0-450.0) 10^3/uL MPV 9.1 (7.0-11.0) fl APTT 69.6 H (23.7-30.8) Seconds pCO2 39 (35-45) mm/Hg pO2 88.0 (80-100) mm/Hg HCO3 25.9 (21-28) mmol/L ABG pH 7.43 (7.35-7.45) ABG Total CO2 27.1 (22-28) mmol.L ABG O2 Saturation 97.5 (95-98) % ABG O2 Content 25.9 H (15-23) ML/dl ABG Base Excess 1.6 (-2.0-3.0) mmol/L ABG Hemoglobin 19.4 H (11.7-17.4) g/dL ABG Carboxyhemoglobin 1.7 H (0.5-1.5) % POC ABG HHb (Measured) 2.4 (0-5) % ABG Methemoglobin 0.9 (0.0-3.0) % ABG O2 Capacity 26.6 H (16-24) mL/dl Hgb O2 Saturation 95.1 (95.0-98.0) % FiO2 28.0 % Sodium 142 (132-148) mmol/L Potassium 3.2 L (3.6-5.0) mmol/L Chloride 106 (98-107) mmol/L Carbon Dioxide 27 (21-33) mmol/L Anion Gap 12 (10-20) BUN 62 H (7-21) mg/dL Creatinine 1.3 (0.5-1.4) mg/dL Est GFR ( Amer) > 60 Est GFR (Non-Af Amer) 53 Random Glucose 148 H (70-110) mg/dL Calcium 8.3 L (8.4-10.5) mg/dL Phosphorus 2.9 (2.5-4.5) mg/dL Magnesium 2.0 (1.7-2.2) mg/dL Total Bilirubin 0.7 (0.2-1.3) mg/dL AST 134 H (15-59) U/L ALT 135 H (7-56) U/L Alkaline Phosphatase 74 (38-133) U/L Total Protein 5.6 L (5.8-8.3) g/dL Albumin 2.6 L (3.0-4.8) g/dL Albumin (PEP) (3.8-4.8) g/dL Globulin 3.0 gm/dL Albumin/Globulin Ratio 0.9 L (1.1-1.8) Roicj-7-Mxffnpesz (0.2-0.3) g/dL Tsnon-6-Fssdwgbme (0.5-0.9) g/dL Qhvi-5-Pbpebtuf (0.4-0.6) g/dL Qmpd-6-Ggbdqkha (0.2-0.5) g/dL Gamma Globulins (0.8-1.7) g/dL Abnorm Protein Band 1 Abnorm Protein Band 2 Abnorm Protein Band 3 GAIL & SPEP Interp (()) ANCA Screen (NEGATIVE) c-ANCA Titer p-ANCA Titer Atypical p-ANCA Titer 07/05/16 07/02/16 Range/Units 19:58 06:15 WBC (4.5-11.0) 10^3/ul RBC (3.5-6.1) 10^6/uL Hgb (14.0-18.0) gm/dL Hct (42.0-52.0) % MCV (80.0-105.0) fL MCH (25.0-35.0) pg MCHC (31.0-37.0) g/dl RDW (11.5-14.5) % Plt Count (120.0-450.0) 10^3/uL MPV (7.0-11.0) fl APTT 63.7 H (23.7-30.8) Seconds pCO2 (35-45) mm/Hg pO2 (80-100) mm/Hg HCO3 (21-28) mmol/L ABG pH (7.35-7.45) ABG Total CO2 (22-28) mmol.L ABG O2 Saturation (95-98) % ABG O2 Content (15-23) ML/dl ABG Base Excess (-2.0-3.0) mmol/L ABG Hemoglobin (11.7-17.4) g/dL ABG Carboxyhemoglobin (0.5-1.5) % POC ABG HHb (Measured) (0-5) % ABG Methemoglobin (0.0-3.0) % ABG O2 Capacity (16-24) mL/dl Hgb O2 Saturation (95.0-98.0) % FiO2 % Sodium (132-148) mmol/L Potassium (3.6-5.0) mmol/L Chloride (98-107) mmol/L Carbon Dioxide (21-33) mmol/L Anion Gap (10-20) BUN (7-21) mg/dL Creatinine (0.5-1.4) mg/dL Est GFR ( Amer) Est GFR (Non-Af Amer) Random Glucose (70-110) mg/dL Calcium (8.4-10.5) mg/dL Phosphorus (2.5-4.5) mg/dL Magnesium (1.7-2.2) mg/dL Total Bilirubin (0.2-1.3) mg/dL AST (15-59) U/L ALT (7-56) U/L Alkaline Phosphatase (38-133) U/L Total Protein (5.8-8.3) g/dL Albumin (3.0-4.8) g/dL Albumin (PEP) 2.4 L (3.8-4.8) g/dL Globulin gm/dL Albumin/Globulin Ratio (1.1-1.8) Chncb-6-Lbokkrnji 0.5 H (0.2-0.3) g/dL Jccna-8-Zunbsgeed 1.0 H (0.5-0.9) g/dL Wtwb-9-Ibhgylca 0.4 (0.4-0.6) g/dL Grwp-3-Hujappjo 0.5 (0.2-0.5) g/dL Gamma Globulins 0.6 L (0.8-1.7) g/dL Abnorm Protein Band 1 TEST NOT PERFORMED Abnorm Protein Band 2 TEST NOT PERFORMED Abnorm Protein Band 3 TEST NOT PERFORMED GAIL & SPEP Interp See note (()) ANCA Screen Negative (NEGATIVE) c-ANCA Titer TNP p-ANCA Titer TNP Atypical p-ANCA Titer TNP Laboratory Results - last 24 hr 07/02/16 07/05/16 07/06/16 06:15 19:58 01:55 WBC RBC Hgb Hct MCV MCH MCHC RDW Plt Count MPV APTT 63.7 H 69.6 H pCO2 pO2 HCO3 ABG pH ABG Total CO2 ABG O2 Saturation ABG O2 Content ABG Base Excess ABG Hemoglobin ABG Carboxyhemoglobin POC ABG HHb (Measured) ABG Methemoglobin ABG O2 Capacity Hgb O2 Saturation FiO2 Sodium Potassium Chloride Carbon Dioxide Anion Gap BUN Creatinine Est GFR ( Amer) Est GFR (Non-Af Amer) Random Glucose Calcium Phosphorus Magnesium Total Bilirubin AST ALT Alkaline Phosphatase Total Protein Albumin Albumin (PEP) 2.4 L Globulin Albumin/Globulin Ratio Kybow-9-Uulmdfeax 0.5 H Parmw-9-Irmmbyxbj 1.0 H Drlu-8-Ctzznkas 0.4 Hjsx-0-Qjxktusr 0.5 Gamma Globulins 0.6 L Abnorm Protein Band 1 TEST NOT PERFORMED Abnorm Protein Band 2 TEST NOT PERFORMED Abnorm Protein Band 3 TEST NOT PERFORMED GAIL & SPEP Interp See note ANCA Screen Negative c-ANCA Titer TNP p-ANCA Titer TNP Atypical p-ANCA Titer TNP 07/06/16 07/06/16 05:20 06:20 WBC 11.8 H RBC 4.07 Hgb 11.1 L Hct 33.6 L MCV 82.6 MCH 27.3 MCHC 33.0 RDW 14.7 H Plt Count 222 MPV 9.1 APTT pCO2 39 pO2 88.0 HCO3 25.9 ABG pH 7.43 ABG Total CO2 27.1 ABG O2 Saturation 97.5 ABG O2 Content 25.9 H ABG Base Excess 1.6 ABG Hemoglobin 19.4 H ABG Carboxyhemoglobin 1.7 H POC ABG HHb (Measured) 2.4 ABG Methemoglobin 0.9 ABG O2 Capacity 26.6 H Hgb O2 Saturation 95.1 FiO2 28.0 Sodium 142 Potassium 3.2 L Chloride 106 Carbon Dioxide 27 Anion Gap 12 BUN 62 H Creatinine 1.3 Est GFR ( Amer) > 60 Est GFR (Non-Af Amer) 53 Random Glucose 148 H Calcium 8.3 L Phosphorus 2.9 Magnesium 2.0 Total Bilirubin 0.7 AST 134 H ALT 135 H Alkaline Phosphatase 74 Total Protein 5.6 L Albumin 2.6 L Albumin (PEP) Globulin 3.0 Albumin/Globulin Ratio 0.9 L Vhwxn-2-Ftifpjwsu Vwimp-9-Lghcfojxs Odyu-4-Uzzmuldp Tnsh-0-Haoliokn Gamma Globulins Abnorm Protein Band 1 Abnorm Protein Band 2 Abnorm Protein Band 3 GAIL & SPEP Interp ANCA Screen c-ANCA Titer p-ANCA Titer Atypical p-ANCA Titer Critical Care Progress Note - Nutrition Nutrition: Nutrition Category Date Time Status Heart Healthy Diet [DIET] Diets 07/06/16 Lunch Ordered Addendum Addendum: 07/06/16 16:34 patient was seen, examined and discussed with Dr. Tineo shoulder to shoulder. Her notes reflects my exam, assessment and plan, except as below. Meds/Labs/ONE reviewed. This is 80 yo male with resolved septic shock secondary to b/l LE cellulitis complicated by MOSF. Now patient is hemodynamically stable, extubated yesterday , doing much better. Mental status improved, respiratory quezada stable, able to protect his airways. Cardiology service is following troponin leak, no plan for cath presently by cardiology service. TAC, ASA, bb-ers. ok to downgrade to tele ccm time 40 min
--- NOTE | 2016-07-06 14:56 | PN ---
DATE: 07/06/2016 SUBJECTIVE: The patient is sitting up in bed in no acute distress. There is no chest pain, no short ness of breath. He remains awake, somewhat confused. OBJECTIVE: VITAL SIGNS: Blood pressure 112/60, pulse 88, temperature 97.6, respiratory rate 20. LUNGS: Show a few crackles at the bases. HEART: Regular rate and rhythm. ABDOMEN: Soft, nontender. Bowel sounds are normoactive. EXTREMITIES: With trace bipedal edema, chronic venous stasis ulcer. Wound dressings are intact. NEUROLOGIC: The patient is awake and confused without focal sensory or motor deficits. SKIN: Warm and dry. LABORATORY DATA: WBCs 11.8, hemoglobin 11.1, hematocrit 33.6, sodium 142, potassium 3.2, chloride 10 6, CO2 27, BUN 62, creatinine 1.3, glucose 148. IMPRESSION: 1. Status post ventilatory failure, rule out acute ischemia/infarct. 2. Hypertension, hypertensive cardiovascular disease and congestive heart failure. 3. Status post acute rhabdomyolysis with acute renal failure superimposed on chronic kidney disease, improving. 4. Chronic venous stasis ulcer of the lower extremities with cellulitis and sepsis, on IV meropenem. 5. Paroxysmal atrial fibrillation with rapid ventricular rate. 6. Dementia with superimposed delirium secondary to underlying metabolic derangement. 7. Immobility secondary to severe degenerative joint disease and obesity with deconditioning. PLAN: We will continue the patient on anticoagulation. The patient is essentially immobile and not at risk of falls at the present time. Continue antibiotics as well as cardiology, pulmonary, infecti ous disease followup. The patient is stable for transfer to the medical surgical floor. Leonid Calderón JD, MD cc: [id number] TT: 07/06/2016 14:56:26 Confirmation # [id number] Dictation # [id number] tn
[2016-07-06] MEDS: Heparin25000 units/250ml 1/2NS 250 ML IV SCH (21:03)
[2016-07-07] MEDS: Albuterol-Ipratrop 3 mg / 0.5 (3 ml) UD IH SCH ×4 (01:05→20:10)
[2016-07-07 06:16] LABS: ARTERIAL BLOOD GAS HCO3 25.1 mmol/L (21-28); ARTERIAL BLOOD GAS O2 CAPACITY 18.5 mL/dl (16-24); ARTERIAL BLOOD GAS PH 7.44 (7.35-7.45); ARTERIAL BLOOD HGB O2 SAT 94.7 % (95.0-98.0); CARBOXYHEMOGLOBIN 2.1 % (0.5-1.5); HHB 2.4 % (0-5); METHEMOGLOBIN 0.9 % (0.0-3.0)
[2016-07-07 06:45] LABS: ALB/GLOB RATIO 0.8 (1.1-1.8); ALKALINE PHOSPHATASE 71 U/L (38-133); ALT/SGPT 107 U/L (7-56); AST/SGOT 89 U/L (15-59); BLOOD UREA NITROGEN 48 mg/dL (7-21); CALCIUM 9.3 mg/dL (8.4-10.5); CARBON DIOXIDE 29 mmol/L (21-33); CHLORIDE 108 mmol/L (98-107); GFR AFRICAN-AMERICAN > 60; GLUCOSE,RANDOM 118 mg/dL (70-110); SODIUM 147 mmol/L (132-148); TOTAL PROTEIN 5.7 g/dL (5.8-8.3)
[2016-07-07 06:55] LABS: HEMATOCRIT 33.7 % (42.0-52.0); MEAN CELL VOLUME 83.4 fL (80.0-105.0); MEAN CORPUSCULAR HEMOGLOBIN 27.5 pg (25.0-35.0); MEAN CORPUSCULAR HGB CONC 32.9 g/dl (31.0-37.0); MEAN PLATELET VOLUME 9.1 fl (7.0-11.0); RED CELL DISTRIBUTION WIDTH 14.4 % (11.5-14.5); WHITE BLOOD COUNT 14.7 10^3/ul (4.5-11.0)
[2016-07-07] MEDS: Pantoprazole 40 mg EC Tab PO SCH (07:18)
[2016-07-07] MEDS: Heparin25000 units/250ml 1/2NS 250 ML IV SCH (07:46)
--- NOTE | 2016-07-07 07:49 | CP.PCM.PN ---
Subjective - Date & Time of Evaluation Date of Evaluation: 07/07/16 Time of Evaluation: 08:00 - Subjective Subjective: Extubated. restrained in CCU. Confused. No CP or SOB. V/S noted. RSR/S. Tachy. PE: Lungs: rhonchi Cor.: S1S2 Abd.: soft Ext.: no edema Neuro.: sedaeted I/O= 1720/2800 Labs and ABG's noted: PTT = 87.8 BC x1 + Grp G Strep. Several BCs are NG. Wound C+S: Staph aur. ECG 07/04: RSR, RBBB, IMI, ST changes. No change Echo: Nl LV fx with mild conc. LVH, no veg. seen. See report. 07/05 echo noted. CXR 07/07 noted: clear lungs, small left pl. effusion (my reading) Objective - Vital Signs/Intake and Output Vital Signs (last 24 hours): Temp Pulse Resp BP Pulse Ox 99.9 F H 112 H 24 161/101 H 100 07/07/16 04:00 07/07/16 04:00 07/07/16 04:00 07/07/16 04:00 07/07/16 04:00 Intake and Output: 07/07/16 07/07/16 06:59 18:59 Intake Total 450 Output Total 1000 Balance -550 - Medications Medications: Current Medications Acetaminophen (Tylenol 325mg Tab) 650 mg PO Q4 PRN PRN Reason: Fever >100.4 F Last Admin: 06/30/16 09:15 Dose: 650 mg Albuterol/Ipratropium (Duoneb 3 Mg/0.5 Mg (3 Ml) Ud) 3 ml IH [id number] [facility] Last Admin: 07/07/16 07:08 Dose: 3 ml Alprazolam (Xanax) 0.25 mg PO Q6 PRN; Protocol PRN Reason: Anxiety Stop: 07/11/16 12:01 Last Admin: 07/06/16 21:45 Dose: 0.25 mg Amlodipine Besylate (Norvasc) 10 mg PO DAILY [facility] Last Admin: 07/06/16 09:04 Dose: 10 mg Aspirin (Aspirin) 325 mg PO DAILY [facility] Last Admin: 07/06/16 09:04 Dose: 325 mg Clotrimazole (Lotrimin 1%) 0 gm TOP BID [facility] Last Admin: 07/06/16 17:34 Dose: 1 applic Hydralazine HCl (Apresoline) 10 mg IVP Q6 PRN PRN Reason: Systolic Blood Pressure Last Admin: 07/06/16 23:22 Dose: 10 mg Heparin Sodium/Sodium Chloride (Heparin 86114 Units/250ml 1/2 Normal Saline) 250 mls @ 13.63 mls/hr IV .[id number] SARAH; 12 UNITS/KG/HR PRN Reason: Protocol Last Admin: 07/06/16 21:03 Dose: 12.494 mls/hr Meropenem 1g/NS 100mL IVPB (Meropenem 1g/Ns 100ml Ivpb) 100 mls @ 100 mls/hr IVPB Q12 SARAH PRN Reason: Protocol Stop: 07/12/16 08:31 Last Admin: 07/06/16 21:44 Dose: 100 mls/hr Metoprolol Tartrate (Lopressor) 50 mg PO 0800,1800 [facility] Last Admin: 07/06/16 17:34 Dose: 50 mg Morphine Sulfate (Morphine) 1 mg IVP Q4H PRN PRN Reason: Pain, moderate (4-7) Last Admin: 07/05/16 23:16 Dose: 1 mg Pantoprazole Sodium (Protonix Ec Tab) 40 mg PO 0630 [facility] Last Admin: 07/07/16 07:18 Dose: 40 mg Silver Sulfadiazine (Silvadene 1% 20 Gm) 0 ea TOP DAILY [facility] Last Admin: 07/06/16 09:09 Dose: 1 applic - Labs Labs: 07/07/16 06:20 07/07/16 06:20 PT 12.1 Seconds (9.9-11.8) H 07/02/16 06:15 INR 1.12 (0.93-1.08) H 07/02/16 06:15 APTT 87.8 Seconds (23.7-30.8) H* 07/07/16 06:20 Assessment and Plan - Assessment and Plan (Free Text) Plan: Assessment: Respiratory failure following PICC line and IV Ativan. R/O CA. Fall at home, details unknown/Right Knee Pain Acute rhabdo., improving Acute renal failure, improving Initial + trop in setting of acute on chronic kidney disease and acute rhabdo., probably not acute CA Sepsis/Grp G strept bacteremia PAF Cellulitis Dementia HBP RBBB IMI on ECG, probbably old Former Smoker Renal Stones Cataracts Diminished hearing Plan: AB, as per ID, Intensivists, Dr. Last, Dr. Calderón PO metoprolol Monitor: I/O, labs, Renal fx., cultures, sats., etc Tel. bed.
--- NOTE | 2016-07-07 08:06 | PN ---
DATE: 07/07/2016(640am--730am) SUBJECTIVE: The patient appears comfortable this morning. He is not short of breath at rest. PHYSICAL EXAMINATION: VITAL SIGNS: Temperature is 99.0, pulse on the monitor is 89, respiratory rate 18/20, blood pressure 161/101. Oxygen saturation on nasal cannula is 100%. HEENT: Normocephalic, atraumatic. No JVD. CARDIOVASCULAR: Systolic ejection murmur at the lower left sternal border. No S3 gallop. LUNGS: Improved breath sounds at the bases. Minimal/less rhonchi. No wheezing. EXTREMITIES: Mild edema. No cyanosis, no clubbing. Calves are nontender to palpation. GASTROINTESTINAL: Abdomen is soft, nontender, nondistended. Bowel sounds are positive. SKIN: Improving cellulitis -- lower extremities (anterior aspects). NEUROLOGIC: Limited at the present time. PERTINENT LABORATORY DATA: Chest x-ray was done this morning and reviewed. There are no new or significant changes noted. Arterial blood gas was done on nasal cannula. Results are: pH 7.44, pCO2 of 37, pO2 of 81. IMPRESSION: 1. Hypercarbic respiratory failure. 2. Severe sepsis. 3. Bilateral cellulitis. 4. Chronic obstructive pulmonary disease. 5. Renal insufficiency. 6. Acute myocardial infarction. 7. Mild anemia. PLAN: The patient remains extubated. He is comfortable this morning, and not short of breath at rest. I did discuss the case with the night nurse at length. The night nurse stated that, other than minimal confusion, the patient had a very good night. I did review the x-ray as above. I do not appreciate any new or significant changes. On physical exam, his bronchospasm continues to resolve. In addition, the alveolar-arterial gradient also continues to resolve. Oxygen saturation on nasal cannula is now 100%. I did review the arterial blood gas in addition. The arterial blood gas reveals a normal pH with a significant decrease in the alveolar-arterial gradient. I would continue with the antibiotic coverage as per infectious disease. Temperatures have resolved. There is a mild leukocytosis. I will also order aspiration precautions -- given the slight change in mental status. Cardiology and neurologic evaluations are noted. The patient is significantly improved -- compared to last week. However, again, the overall status/prognosis of this patient remains guarded. I will discuss the above with the entire ICU team in the next few moments. I will also discuss the above with the attending physician. Ken Mancini MD cc: [phone] TT: 07/07/2016 08:05:46 Confirmation # [id number] Dictation # [id number]
--- NOTE | 2016-07-07 08:23 | PN ---
DATE: 07/07/2016 SUBJECTIVE: The patient is awake and alert. He is comfortable. He has no complaints of any pain. He does have episodes on confusion, according to nursing staff. PHYSICAL EXAMINATION: VITAL SIGNS: Temperature is 99.9, pulse of 112, blood pressure 161/101, respirations 24. GENERAL: The patient comfortable, in no acute distress. HEENT: Anicteric sclerae. Moist mucosa. NECK: No JVD or adenopathy. CARDIAC: S1/S2. No murmurs. No rubs. Regular. RESPIRATORY: Clear to auscultation bilaterally. No wheezes, rales, or rhonchi. Good air entry. ABDOMEN: Bowel sounds are positive, soft, nontender, and nondistended. EXTREMITIES: No edema. Has 1+ pulses. LABS: White count 11.8, hemoglobin 11.1. Creatinine is 1.3, potassium 3.2. ASSESSMENT: 1. Sepsis: 2. Acute kidney injury secondary to rhabdomyolysis, improved. 3. Respiratory failure, status post extubation. 4. Delirium, improving. 5. Proteinuria, 2 grams per day. 6. Paroxysmal atrial fibrillation. 7. Czq-[id number] myocardial infarction. 8. Hyperphosphatemia secondary to acute kidney injury. 9. Hypernatremia. 10. Obesity with a body mass index of 37. 11. Right knee pain secondary to degenerative joint disease. 12. Paroxysmal atrial fibrillation. 13. Left foot wound with Staphylococcus aureus infection. 14. Hematuria. 15. Transaminitis. PLAN: The patient is currently comfortable. His white count has improved significantly. The patien t's hypernatremia has improved as well. The transaminitis that the patient has is near normal. The patient will be transferred out of the ICU. He will get physical therapy. He is on Xanax as needed. The patient is on morphine for pain. He is on Norvasc for hypertension. The patient is on heparin for anticoagulation. He is on aspirin for his ST elevation PR. He is on beta-blockers with metopro lol. He is on a heart healthy diet. Kolby Last MD cc: [id number] TT: 07/07/2016 08:22:42 Confirmation # [id number] Dictation # [id number] mn
--- NOTE | 2016-07-07 09:12 | CP.PCM.PN ---
Subjective - Date & Time of Evaluation Date of Evaluation: 07/07/16 Time of Evaluation: 08:40 - Subjective Subjective: Comfortable in bed, not in distress, has occasional dry cough, no fevers overnight, no diarrhea, no muscle aches. Objective - Vital Signs/Intake and Output Vital Signs (last 24 hours): Temp Pulse Resp BP Pulse Ox 99.9 F H 112 H 24 161/101 H 100 07/07/16 04:00 07/07/16 04:00 07/07/16 04:00 07/07/16 04:00 07/07/16 04:00 Intake and Output: 07/07/16 07/07/16 06:59 18:59 Intake Total 450 Output Total 1000 Balance -550 - Medications Medications: Current Medications Acetaminophen (Tylenol 325mg Tab) 650 mg PO Q4 PRN PRN Reason: Fever >100.4 F Last Admin: 06/30/16 09:15 Dose: 650 mg Albuterol/Ipratropium (Duoneb 3 Mg/0.5 Mg (3 Ml) Ud) 3 ml IH [id number] [facility] Last Admin: 07/07/16 07:08 Dose: 3 ml Alprazolam (Xanax) 0.25 mg PO Q6 PRN; Protocol PRN Reason: Anxiety Stop: 07/11/16 12:01 Last Admin: 07/06/16 21:45 Dose: 0.25 mg Amlodipine Besylate (Norvasc) 10 mg PO DAILY [facility] Last Admin: 07/06/16 09:04 Dose: 10 mg Aspirin (Aspirin) 325 mg PO DAILY [facility] Last Admin: 07/06/16 09:04 Dose: 325 mg Clotrimazole (Lotrimin 1%) 0 gm TOP BID [facility] Last Admin: 07/06/16 17:34 Dose: 1 applic Hydralazine HCl (Apresoline) 10 mg IVP Q6 PRN PRN Reason: Systolic Blood Pressure Last Admin: 07/06/16 23:22 Dose: 10 mg Heparin Sodium/Sodium Chloride (Heparin 10703 Units/250ml 1/2 Normal Saline) 250 mls @ 13.63 mls/hr IV .[id number] SARAH; 12 UNITS/KG/HR PRN Reason: Protocol Last Admin: 07/07/16 07:46 Dose: 10.222 mls/hr Meropenem 1g/NS 100mL IVPB (Meropenem 1g/Ns 100ml Ivpb) 100 mls @ 100 mls/hr IVPB Q12 SARAH PRN Reason: Protocol Stop: 07/12/16 08:31 Last Admin: 07/06/16 21:44 Dose: 100 mls/hr Metoprolol Tartrate (Lopressor) 50 mg PO 0800,1800 [facility] Last Admin: 07/06/16 17:34 Dose: 50 mg Morphine Sulfate (Morphine) 1 mg IVP Q4H PRN PRN Reason: Pain, moderate (4-7) Last Admin: 07/05/16 23:16 Dose: 1 mg Pantoprazole Sodium (Protonix Ec Tab) 40 mg PO 0630 [facility] Last Admin: 07/07/16 07:18 Dose: 40 mg Silver Sulfadiazine (Silvadene 1% 20 Gm) 0 ea TOP DAILY [facility] Last Admin: 07/06/16 09:09 Dose: 1 applic Vitamin A (Vitamin A & D Oint Ud Foilpak) 1 ea TOP BID PRN PRN Reason: chapped lips - Labs Labs: 07/07/16 06:20 07/07/16 06:20 PT 12.1 Seconds (9.9-11.8) H 07/02/16 06:15 INR 1.12 (0.93-1.08) H 07/02/16 06:15 APTT 87.8 Seconds (23.7-30.8) H* 07/07/16 06:20 - Constitutional Appears: Non-toxic, No Acute Distress - Head Exam Head Exam: NORMAL INSPECTION - ENT Exam ENT Exam: Mucous Membranes Moist - Neck Exam Neck Exam: absent: Lymphadenopathy, Meningismus - Respiratory Exam Respiratory Exam: Decreased Breath Sounds - Cardiovascular Exam Cardiovascular Exam: +S1, +S2 - GI/Abdominal Exam GI & Abdominal Exam: Soft. absent: Tenderness - Extremities Exam Additional comments: slowly decreasing swelling of both lower extremities Assessment and Plan - Assessment and Plan (Free Text) Plan: Assessment severe sepsis S/P shock S/P ventilator-dependent respiratory failure with acute on chronic renal failure due to Group G strep bacteremia, probably secondary to bilateral lower extremities skin and skin structure infection; also with MSSA from the wound cultures; so far no evidence of new infection; patient is clinically improving acute rhabdomyolysis consider acute NSTEMI HTN chronic renal failure dementia obesity with BMI 38 Plan on renally-adjusted Merrem (day 8 from first negative blood cx); repeat septic work up so far negative, PCT is improving; CXR does not show focal infiltrates; since the cultures continue to be negative, will switch back to Rocephin to finish the 28 day course 2D echocardiogram does not show vegetations will continue to monitor clinically
--- NOTE | 2016-07-07 09:27 | CP.PCM.PN ---
<Mary Romero - Last Filed: 07/07/16 09:20> Subjective - Date & Time of Evaluation Date of Evaluation: 07/07/16 Time of Evaluation: 09:20 - Subjective Subjective: 80 y/o male seen at bedside with attending Dr. Hay for lower extremity ulcerations. Patient seen in the CCU. patient is extubated and able to answer questions. Patient appears in NAD and AAOx3. Objective - Vital Signs/Intake and Output Vital Signs (last 24 hours): Temp Pulse Resp BP Pulse Ox 98.8 F 110 H 14 166/70 H 100 07/07/16 08:00 07/07/16 08:38 07/07/16 08:38 07/07/16 08:13 07/07/16 08:38 Intake and Output: 07/07/16 07/07/16 06:59 18:59 Intake Total 450 Output Total 1000 Balance -550 - Medications Medications: Current Medications Acetaminophen (Tylenol 325mg Tab) 650 mg PO Q4 PRN PRN Reason: Fever >100.4 F Last Admin: 06/30/16 09:15 Dose: 650 mg Albuterol/Ipratropium (Duoneb 3 Mg/0.5 Mg (3 Ml) Ud) 3 ml IH [id number] [facility] Last Admin: 07/07/16 07:08 Dose: 3 ml Alprazolam (Xanax) 0.25 mg PO Q6 PRN; Protocol PRN Reason: Anxiety Stop: 07/11/16 12:01 Last Admin: 07/06/16 21:45 Dose: 0.25 mg Alprazolam (Xanax) 0.25 mg PO Q12 SARAH PRN Reason: Protocol Stop: 07/14/16 10:01 Amlodipine Besylate (Norvasc) 10 mg PO DAILY [facility] Last Admin: 07/06/16 09:04 Dose: 10 mg Aspirin (Aspirin) 325 mg PO DAILY [facility] Last Admin: 07/06/16 09:04 Dose: 325 mg Clotrimazole (Lotrimin 1%) 0 gm TOP BID [facility] Last Admin: 07/06/16 17:34 Dose: 1 applic Heparin Sodium (Porcine) (Heparin) 5,000 units SC Q12 SARAH PRN Reason: Protocol Hydralazine HCl (Apresoline) 10 mg IVP Q6 PRN PRN Reason: Systolic Blood Pressure Last Admin: 07/06/16 23:22 Dose: 10 mg Dextrose (Dextrose 5% In Water 1000 Ml) 1,000 mls @ 50 mls/hr IV .Q20H [facility] Stop: 07/09/16 01:14 Ceftriaxone Sodium (Rocephin 2 Gm Ivpb) 100 mls @ 100 mls/hr IVPB DAILY [facility] PRN Reason: Protocol Stop: 07/27/16 10:01 Metoprolol Tartrate (Lopressor) 50 mg PO 0800,1800 [facility] Last Admin: 07/07/16 08:13 Dose: 50 mg Morphine Sulfate (Morphine) 1 mg IVP Q4H PRN PRN Reason: Pain, moderate (4-7) Last Admin: 07/05/16 23:16 Dose: 1 mg Pantoprazole Sodium (Protonix Ec Tab) 40 mg PO 0630 [facility] Last Admin: 07/07/16 07:18 Dose: 40 mg Risperidone (Risperdal Tab) 0.5 mg PO DAILY [facility] PRN Reason: Protocol Silver Sulfadiazine (Silvadene 1% 20 Gm) 0 ea TOP DAILY [facility] Last Admin: 07/06/16 09:09 Dose: 1 applic Vitamin A (Vitamin A & D Oint Ud Foilpak) 1 ea TOP BID PRN PRN Reason: chapped lips - Labs Labs: 07/07/16 06:20 07/07/16 06:20 PT 12.1 Seconds (9.9-11.8) H 07/02/16 06:15 INR 1.12 (0.93-1.08) H 07/02/16 06:15 APTT 87.8 Seconds (23.7-30.8) H* 07/07/16 06:20 - Constitutional Appears: Well, Non-toxic, No Acute Distress - Extremities Exam Additional comments: Vasc: nonpalpable pedal pulses bilaterally, TG wnl, CFT < 3 sec to all digits neuro: grossly diminished derm: no open wounds, open fissure at plantar 1st MPJ, no fluctuance, no pus, no ascending cellulitis, resolved erythema, no edema legs have 2 ulcerations superficial open blisters ortho: no pain on palpation of foot or legs bilaterally - Neurological Exam Neurological Exam: Alert, Awake - Psychiatric Exam Psychiatric exam: Normal Affect, Normal Mood Assessment and Plan - Assessment and Plan (Free Text) Assessment: 80 y/o male seen at bedside in CCU for small blisters on his lower legs and fissure of his foot. Plan: patient evaluated and seen at bedside with attending Dr. Hay labs and vitals reviewed continue IV abx applied allevyn heel pads bilaterally applied multipodus offloading boots to patients heels patient to continue wearing boots in bed at all times podiatry will continue to monitor while patient remains in house <Megan Hay - Last Filed: 07/10/16 12:25> Objective - Vital Signs/Intake and Output Vital Signs (last 24 hours): Temp Pulse Resp BP Pulse Ox 97.7 F 75 23 164/58 H 95 07/10/16 04:00 07/10/16 09:56 07/10/16 04:14 07/10/16 09:56 07/10/16 04:14 Intake and Output: 07/10/16 07/10/16 06:59 18:59 Intake Total 600 Output Total 200 Balance 400 - Medications Medications: Current Medications Acetaminophen (Tylenol 325mg Tab) 650 mg PO Q4 PRN PRN Reason: Fever >100.4 F Last Admin: 06/30/16 09:15 Dose: 650 mg Albuterol/Ipratropium (Duoneb 3 Mg/0.5 Mg (3 Ml) Ud) 3 ml IH [id number] [facility] Last Admin: 07/10/16 07:20 Dose: 3 ml Amlodipine Besylate (Norvasc) 10 mg PO DAILY [facility] Last Admin: 07/10/16 09:56 Dose: 10 mg Aspirin (Aspirin) 325 mg PO DAILY [facility] Last Admin: 07/10/16 09:56 Dose: 325 mg Clotrimazole (Lotrimin 1%) 0 gm TOP BID [facility] Last Admin: 07/10/16 10:25 Dose: 1 applic Furosemide (Lasix) 40 mg IVP DAILY [facility] Last Admin: 07/09/16 09:00 Dose: 40 mg Heparin Sodium (Porcine) (Heparin) 5,000 units SC Q12 SARAH PRN Reason: Protocol Last Admin: 07/10/16 09:57 Dose: 5,000 units Hydralazine HCl (Apresoline) 10 mg IVP Q6 PRN PRN Reason: Systolic Blood Pressure Last Admin: 07/10/16 09:56 Dose: 10 mg Ceftriaxone Sodium (Rocephin 2 Gm Ivpb) 100 mls @ 100 mls/hr IVPB DAILY [facility] PRN Reason: Protocol Stop: 07/27/16 10:01 Last Admin: 07/10/16 09:59 Dose: 100 mls/hr Metoprolol Tartrate (Lopressor) 50 mg PO 0800,1800 [facility] Last Admin: 07/10/16 08:04 Dose: 50 mg Pantoprazole Sodium (Protonix Inj) 40 mg IVP 0630 [facility] Last Admin: 07/10/16 05:30 Dose: 40 mg Risperidone (Risperdal Tab) 0.5 mg PO DAILY [facility] PRN Reason: Protocol Last Admin: 07/10/16 09:57 Dose: 0.5 mg Silver Sulfadiazine (Silvadene 1% 20 Gm) 0 ea TOP DAILY [facility] Last Admin: 07/10/16 10:25 Dose: 1 applic Vitamin A (Vitamin A & D Oint Ud Foilpak) 1 ea TOP BID PRN PRN Reason: chapped lips Last Admin: 07/10/16 09:56 Dose: 1 ea - Labs Labs: 07/10/16 06:00 07/10/16 06:00 PT 12.1 Seconds (9.9-11.8) H 07/02/16 06:15 INR 1.12 (0.93-1.08) H 07/02/16 06:15 APTT 87.8 Seconds (23.7-30.8) H* 07/07/16 06:20 Attending/Attestation - Attestation I have personally seen and examined this patient.: Yes I have fully participated in the care of the patient.: Yes I have reviewed all pertinent clinical information, including history, physical exam and plan: Yes
[2016-07-07] MEDS: Silver Sulfadiazine 1% Cream (20 gm) TOP SCH (09:54)
[2016-07-07] MEDS: Vitamins A & D Oint UD Foilpak TOP PRN (09:54)
[2016-07-07] MEDS: Clotrimazole 1% Cream(30 gm) TOP SCH ×2 (09:54→18:53)
--- NOTE | 2016-07-07 11:32 | RAD ---
PROCEDURE: Chest portable HISTORY: intubated COMPARISON: Multiple serial examinations preceding the most recent study: July 06, 2016. TECHNIQUE: Multiple serial examinations preceding the most recent study: 05:23. FINDINGS: Cardiomegaly, improving CHF. PICC line in satisfactory position unchanged compared to prior studies. IMPRESSION: Improving congestive heart failure.
--- NOTE | 2016-07-07 16:56 | PN ---
DATE: 07/07/2016 SUBJECTIVE: The patient is lying in bed. He denies chest pain or shortness of breath. He remains c onfused and having some visual and auditory hallucinations at the present time. He is not agitated. OBJECTIVE: VITAL SIGNS: Blood pressure 138/60, pulse 108, temperature 98.6, respiratory rate 24. LUNGS: Show a few crepitations at the bases. HEART: Regular rate and rhythm. There is hepatojugular reflux present. ABDOMEN: Soft, nontender. Bowel sounds are normoactive. EXTREMITIES: With trace bipedal and dependent edema to the sacrum. Chronic venous stasis ulcer dres sings are intact. NEUROLOGIC: The patient is awake and confused without focal sensory or motor deficits. SKIN: Warm and dry. LABORATORY DATA: WBC is 14.7, hemoglobin 11.1, hematocrit 33.7, sodium 147, potassium 4.0, chloride 108, CO2 29, BUN 48, creatinine 1.3, glucose 118. IMPRESSION: 1. Hypertensive cardiovascular disease and congestive heart failure. 2. Status post acute rhabdomyolysis with acute renal failure superimposed on chronic kidney disease, improved. 3. Chronic venous stasis ulcers of the lower extremities with cellulitis and sepsis, on IV meropenem . 4. Paroxysmal atrial fibrillation with intermittent rapid ventricular rate. 5. Dementia with superimposed delirium secondary to underlying metabolic disorder. 6. Immobility secondary to severe degenerative joint disease and obesity with deconditioning. PLAN: Continue present treatment. Check BNP level. Consider cautious diuresis if BNP is elevated. Out of bed as tolerated. Continue cardiology, pulmonary, infectious disease followup. Leonid Calderón JD, MD cc: [id number] TT: 07/07/2016 16:56:19 Confirmation # [id number] Dictation # [id number] tn
--- NOTE | 2016-07-07 20:18 | OP ---
PROCEDURE DATE: 07/04/2016 PROCEDURE: Emergent endotracheal intubation. INDICATION: Hypercapnic respiratory failure. DESCRIPTION OF PROCEDURE: The patient was preoxygenated with 100% FIO2, 2 liters of IV fluids as a b olus started wide open. The patient was sedated with etomidate 10 mL. Direct laryngoscopy performed with curved MAC 3 blade. Vocal cords are visualized. Trachea cannulated by 7.5 endotracheal tube. Position confirmed with change of the color of the end-tidal CO2 monitor, stomach auscultation and b ilateral lung auscultation. Subsequent chest x-ray also confirmed correct position of the endotrache al tube. The patient tolerated the procedure well. Vital signs were monitored every 1 minute and ox ygen saturation remained above 90 throughout the procedure. Loco Villagran MD cc: [id number] TT: 07/07/2016 20:17:21 [place]
[2016-07-08] MEDS: Albuterol-Ipratrop 3 mg / 0.5 (3 ml) UD IH SCH ×4 (02:10→20:00)
[2016-07-08] MEDS: Pantoprazole 40 mg EC Tab PO SCH (06:08)
[2016-07-08 07:39] LABS: ARTERIAL BLOOD GAS HCO3 28.5 mmol/L (21-28); ARTERIAL BLOOD GAS O2 CAPACITY 16.8 mL/dl (16-24); ARTERIAL BLOOD GAS O2 CONTENT 16.6 ML/dl (15-23); ARTERIAL BLOOD HGB O2 SAT 95.8 % (95.0-98.0); METHEMOGLOBIN 1.2 % (0.0-3.0)
--- NOTE | 2016-07-08 08:14 | PN ---
DATE: 07/08/2016 SUBJECTIVE: The patient alexis respiratory distress PHYSICAL EXAMINATION: VITAL SIGNS: Temperature is 100+, pulse is 96, blood pressure is 134/57, respiration is 30. GENERAL: The patient comfortable, in no acute distress. HEENT: Anicteric sclerae. Moist mucosa. NECK: No JVD or adenopathy. CARDIAC: S1/S2. No murmurs. No rubs. Regular. RESPIRATORY: Clear to auscultation bilaterally. No wheezes, rales, or rhonchi. Good air entry. ABDOMEN: Bowel sounds are positive, soft, nontender, and nondistended. EXTREMITIES: No edema. Has 1+ pulses. LABORATORIES: Creatinine is 1.3. Yesterday's white count is 14.7 ASSESSMENT: 1. Sepsis. 2. Acute kidney injury, secondary to rhabdomyolysis, resolved. 3. Hypoxic respiratory failure, status post extubation. 4. Delirium, improving. 5. Proteinuria, 2 grams per day. 6. Non-ST elevation myocardial infarction. 7. Hyperphosphatemia, secondary to acute kidney injury, improved. 8. Transaminitis, improving. 9. Hypernatremia. 10. Obesity with a body mass index of 37. 11. Right knee pain, secondary to degenerative joint disease. 12. Paroxysmal atrial fibrillation. 13. Left foot wound with Staphylococcus aureus infection. 14. Hematuria, resolved. PLAN: The patient is currently comfortable. He is on aspirin for his non-ST elevation myocardial infarction. I spoke with Dr. Olmedo and he does not require further intervention. The patient is going to have conservative treatment with aspirin and beta blockers, which he is on. The patient is on heparin for deep venous thrombosis prophylaxis. He does not have any hematuria , but he is at risk of deep venous thrombosis. The patient is on amlodipine for hypertension. He is on risperidone, which was started yesterday by me, as well as a scheduled dose of Xanax because of his delirium. He is a danger to himself and trying to get out of bed. The risks and benefits were weighed and we will try to minimize his use of antipsychotics due to the complications that it can cause including stroke. The patient is currently on the telemetry floor , is being followed by multiple consultants. I did speak to the patient's yesterday to give her an update on the patient's diagnosis and plan of care. Overall, prognosis is guarded, but he has made significant improvement while being hospitalized. He will need subacute rehab once he is stable, enough to be transferred. He still has episodes of confusion. He is receiving IV antibiotics. He is hypernatremic. That is the reason he was given free water.He may be septic from hospital acquired infection. Will be transferred to the ICU. Kolby Last MD cc: [id number] TT: 07/08/2016 08:13:46 Confirmation # [id number] Dictation # [id number] en MTDD
--- NOTE | 2016-07-08 08:20 | CP.PCM.PN ---
Subjective - Date & Time of Evaluation Date of Evaluation: 07/08/16 Time of Evaluation: 07:45 - Subjective Subjective: CC- Acute resp. distress and hypoxia HPI - 80 yr old male with PMHX of HTN, dementia s/p fall at home admitted for acute rhabdomyolysis, acute renal failure ,sepsis s/p intubation for acute resp. failure and extubated on 07/05 , transferred out from to the unit to [facility] on 07/07 . As per RN pt develop acute resp. distress and sp02 drops to 80,s . Pt was confused and agitated at night and received 0.5 mg ativan, pt o2 sat with oxygen nasal canula was 92% throughout. Pt seen and examined at bedside , in resp. distress , o2 sat 100 %on NBM , tacypnic , tacycardic rate - 109 and diaphoretic Objective - Vital Signs/Intake and Output Vital Signs (last 24 hours): Temp Pulse Resp BP Pulse Ox 98.3 F 109 H 18 154/91 H 92 L 07/08/16 06:00 07/08/16 08:18 07/08/16 06:00 07/08/16 06:00 07/08/16 06:00 Intake and Output: 07/08/16 07/08/16 06:59 18:59 Intake Total 820 Output Total 200 Balance 620 - Medications Medications: Current Medications Acetaminophen (Tylenol 325mg Tab) 650 mg PO Q4 PRN PRN Reason: Fever >100.4 F Last Admin: 06/30/16 09:15 Dose: 650 mg Albuterol/Ipratropium (Duoneb 3 Mg/0.5 Mg (3 Ml) Ud) 3 ml IH [id number] [facility] Last Admin: 07/08/16 02:10 Dose: Not Given Amlodipine Besylate (Norvasc) 10 mg PO DAILY [facility] Last Admin: 07/07/16 09:53 Dose: 10 mg Aspirin (Aspirin) 325 mg PO DAILY [facility] Last Admin: 07/07/16 09:53 Dose: 325 mg Clotrimazole (Lotrimin 1%) 0 gm TOP BID [facility] Last Admin: 07/07/16 18:53 Dose: 1 applic Heparin Sodium (Porcine) (Heparin) 5,000 units SC Q12 [facility] PRN Reason: Protocol Last Admin: 07/07/16 21:26 Dose: 5,000 units Hydralazine HCl (Apresoline) 10 mg IVP Q6 PRN PRN Reason: Systolic Blood Pressure Last Admin: 07/06/16 23:22 Dose: 10 mg Dextrose (Dextrose 5% In Water 1000 Ml) 1,000 mls @ 50 mls/hr IV .Q20H [facility] Stop: 07/09/16 01:14 Last Admin: 07/08/16 06:16 Dose: 50 mls/hr Ceftriaxone Sodium (Rocephin 2 Gm Ivpb) 100 mls @ 100 mls/hr IVPB DAILY [facility] PRN Reason: Protocol Stop: 07/27/16 10:01 Last Admin: 07/07/16 09:55 Dose: 100 mls/hr Metoprolol Tartrate (Lopressor) 50 mg PO 0800,1800 [facility] Last Admin: 07/07/16 18:52 Dose: 50 mg Pantoprazole Sodium (Protonix Ec Tab) 40 mg PO 0630 [facility] Last Admin: 07/08/16 06:08 Dose: Not Given Risperidone (Risperdal Tab) 0.5 mg PO DAILY [facility] PRN Reason: Protocol Last Admin: 07/07/16 09:52 Dose: 0.5 mg Silver Sulfadiazine (Silvadene 1% 20 Gm) 0 ea TOP DAILY [facility] Last Admin: 07/07/16 09:54 Dose: 1 applic Vitamin A (Vitamin A & D Oint Ud Foilpak) 1 ea TOP BID PRN PRN Reason: chapped lips Last Admin: 07/07/16 09:54 Dose: 1 ea - Labs Labs: 07/07/16 06:20 07/07/16 06:20 PT 12.1 Seconds (9.9-11.8) H 07/02/16 06:15 INR 1.12 (0.93-1.08) H 07/02/16 06:15 APTT 87.8 Seconds (23.7-30.8) H* 07/07/16 06:20 - Constitutional Appears: In Acute Distress - ENT Exam ENT Exam: Mucous Membranes Dry - Respiratory Exam Respiratory Exam: Accessory Muscle Use, Rales, Rhonchi, Respiratory Distress - Cardiovascular Exam Cardiovascular Exam: Tachycardia - Extremities Exam Extremities Exam: Joint Swelling (b/l ) - Skin Skin Exam: Diaphoretic, Normal Color, Warm Assessment and Plan - Assessment and Plan (Free Text) Assessment: ASSESSMENT /PLAN Acute resp. distress / Hypoxia ( possible sepsis/ acute PA ) 100 % NBM - o2 sat at !00% stat ABG - stat CXR stat, cbc, cmp, troponin BIPAP D/W with resident and Supervisor [employer] and Dr. Mancini Pt transferred to ICU
[2016-07-08 08:34] LABS: HEMATOCRIT 37.6 % (42.0-52.0); MEAN CELL VOLUME 85.5 fL (80.0-105.0); MEAN CORPUSCULAR HEMOGLOBIN 27.7 pg (25.0-35.0); MEAN CORPUSCULAR HGB CONC 32.4 g/dl (31.0-37.0); MEAN PLATELET VOLUME 9.5 fl (7.0-11.0); PLATELET COUNT 333 10^3/uL (120.0-450.0); RED CELL DISTRIBUTION WIDTH 14.4 % (11.5-14.5)
[2016-07-08 08:35] LABS: ALB/GLOB RATIO 0.8 (1.1-1.8); ALKALINE PHOSPHATASE 79 U/L (38-133); ALT/SGPT 95 U/L (7-56); AST/SGOT 101 U/L (15-59); BILIRUBIN,TOTAL 0.8 mg/dL (0.2-1.3); BLOOD UREA NITROGEN 40 mg/dL (7-21); CALCIUM 9.7 mg/dL (8.4-10.5); CARBON DIOXIDE 31 mmol/L (21-33); CHLORIDE 106 mmol/L (98-107); GFR AFRICAN-AMERICAN > 60; GLUCOSE,RANDOM 153 mg/dL (70-110); POTASSIUM 4.2 mmol/L (3.6-5.0); SODIUM 145 mmol/L (132-148); TOTAL PROTEIN 6.8 g/dL (5.8-8.3)
--- NOTE | 2016-07-08 08:35 | PN ---
DATE: 07/08/2016 SUBJECTIVE: The patient appears comfortable this morning. He is not short of breath at rest. OBJECTIVE: VITAL SIGNS: Temperature is 98.3, pulse 105, respirations 18, blood pressure 154/91. Oxygen saturation on nasal cannula ranges between 92-99%. HEENT: Normocephalic, atraumatic. No JVD. CARDIOVASCULAR: Systolic ejection murmur at the lower left sternal border. No S3 gallop. LUNGS: Minimal bilateral rhonchi. No wheezing. EXTREMITIES: Mild edema. No cyanosis, no clubbing. Calves are nontender to palpation. GASTROINTESTINAL: Abdomen is soft, nontender, nondistended. Bowel sounds are positive. SKIN: Improving cellulitis - lower extremities (anterior aspects). NEUROLOGIC: Limited at the present time. IMPRESSION: 1. Hypercarbic respiratory failure. 2. Severe sepsis. 3. Bilateral cellulitis. 4. Chronic obstructive pulmonary disease. 5. Renal insufficiency. 6. Acute myocardial infarction. 7. Mild anemia. PLAN: The patient appears comfortable this morning. He is not short of breath at rest. He states he is feeling much better overall. I did discuss the case with the night nurse at length. The night nurse stated that the patient had a pretty good night. On physical exam, there is only minimal bronchospasm noted. I will continue with the current nebulizer treatments and aspiration precautions for now. I have also ordered a repeat chest x-ray for this morning - not done yet. I would continue with the treatment for sepsis as per infectious disease. Input by Dr. Mueller is noted. Temperatures are decreasing. I would continue with the treatment for acute myocardial infarction as per cardiology. Inputs by Dr. Willis and Dr. Olmedo are noted. Again, the clinical status of the patient is significantly improved - compared to last week. However, again, the overall status/prognosis of this patient remains very guarded. I will discuss the above with the attending physician. Ken Mancini MD cc: [id number] TT: 07/08/2016 08:35:18 Confirmation # [id number] Dictation # [id number] samuel ROSS
[2016-07-08 08:36] LABS: ARTERIAL BLOOD GAS HCO3 26.9 mmol/L (21-28); ARTERIAL BLOOD GAS O2 CAPACITY 15.7 mL/dl (16-24); ARTERIAL BLOOD GAS O2 CONTENT 15.6 ML/dl (15-23); ARTERIAL BLOOD GAS PH 7.29 (7.35-7.45); CARBOXYHEMOGLOBIN 2.3 % (0.5-1.5); HHB 0.8 % (0-5)
[2016-07-08 08:47] LABS: ADD MANUAL DIFF? YES; WHITE BLOOD COUNT 25.4 10^3/ul (4.5-11.0)
--- NOTE | 2016-07-08 09:16 | CP.PCM.PN ---
Subjective - Date & Time of Evaluation Date of Evaluation: 07/08/16 Time of Evaluation: 08:20 - Subjective Subjective: Patient placed on BiPAP because of some shortness of breath at rest. No fevers overnight. No diarrhea, no nausea. Objective - Vital Signs/Intake and Output Vital Signs (last 24 hours): Temp Pulse Resp BP Pulse Ox 98.3 F 109 H 18 154/91 H 92 L 07/08/16 06:00 07/08/16 08:18 07/08/16 06:00 07/08/16 06:00 07/08/16 06:00 Intake and Output: 07/08/16 07/08/16 06:59 18:59 Intake Total 820 Output Total 200 Balance 620 - Medications Medications: Current Medications Acetaminophen (Tylenol 325mg Tab) 650 mg PO Q4 PRN PRN Reason: Fever >100.4 F Last Admin: 06/30/16 09:15 Dose: 650 mg Albuterol/Ipratropium (Duoneb 3 Mg/0.5 Mg (3 Ml) Ud) 3 ml IH [id number] [facility] Last Admin: 07/08/16 02:10 Dose: Not Given Amlodipine Besylate (Norvasc) 10 mg PO DAILY [facility] Last Admin: 07/07/16 09:53 Dose: 10 mg Aspirin (Aspirin) 325 mg PO DAILY [facility] Last Admin: 07/07/16 09:53 Dose: 325 mg Clotrimazole (Lotrimin 1%) 0 gm TOP BID [facility] Last Admin: 07/07/16 18:53 Dose: 1 applic Heparin Sodium (Porcine) (Heparin) 5,000 units SC Q12 [facility] PRN Reason: Protocol Last Admin: 07/07/16 21:26 Dose: 5,000 units Hydralazine HCl (Apresoline) 10 mg IVP Q6 PRN PRN Reason: Systolic Blood Pressure Last Admin: 07/06/16 23:22 Dose: 10 mg Dextrose (Dextrose 5% In Water 1000 Ml) 1,000 mls @ 50 mls/hr IV .Q20H [facility] Stop: 07/09/16 01:14 Last Admin: 07/08/16 06:16 Dose: 50 mls/hr Ceftriaxone Sodium (Rocephin 2 Gm Ivpb) 100 mls @ 100 mls/hr IVPB DAILY [facility] PRN Reason: Protocol Stop: 07/27/16 10:01 Last Admin: 07/07/16 09:55 Dose: 100 mls/hr Metoprolol Tartrate (Lopressor) 50 mg PO 0800,1800 [facility] Last Admin: 07/07/16 18:52 Dose: 50 mg Pantoprazole Sodium (Protonix Ec Tab) 40 mg PO 0630 [facility] Last Admin: 07/08/16 06:08 Dose: Not Given Risperidone (Risperdal Tab) 0.5 mg PO DAILY [facility] PRN Reason: Protocol Last Admin: 07/07/16 09:52 Dose: 0.5 mg Silver Sulfadiazine (Silvadene 1% 20 Gm) 0 ea TOP DAILY [facility] Last Admin: 07/07/16 09:54 Dose: 1 applic Vitamin A (Vitamin A & D Oint Ud Foilpak) 1 ea TOP BID PRN PRN Reason: chapped lips Last Admin: 07/07/16 09:54 Dose: 1 ea - Labs Labs: 07/08/16 08:00 07/08/16 08:00 PT 12.1 Seconds (9.9-11.8) H 07/02/16 06:15 INR 1.12 (0.93-1.08) H 07/02/16 06:15 APTT 87.8 Seconds (23.7-30.8) H* 07/07/16 06:20 - Constitutional Appears: Other (On BiPAP with mild respiratory distress) - Head Exam Head Exam: NORMAL INSPECTION - Neck Exam Neck Exam: absent: Meningismus - Respiratory Exam Respiratory Exam: Decreased Breath Sounds - Cardiovascular Exam Cardiovascular Exam: +S1, +S2 - GI/Abdominal Exam GI & Abdominal Exam: Soft. absent: Tenderness Assessment and Plan - Assessment and Plan (Free Text) Plan: Assessment severe sepsis S/P shock S/P ventilator-dependent respiratory failure with acute on chronic renal failure due to Group G strep bacteremia, probably secondary to bilateral lower extremities skin and skin structure infection; also with MSSA from the wound cultures; so far no evidence of new infection; patient is clinically improving but has been placed on BiPAP acute rhabdomyolysis consider acute NSTEMI HTN chronic renal failure dementia obesity with BMI 38 Plan continue Rocephin (day 9 from first negative blood cx); repeat septic work up so far negative, PCT is improving; CXR does not show focal infiltrates from 3 days ago but will follow up repeat CXR today; reviewed Dr. Mancini's note 2D echocardiogram does not show vegetations will continue to monitor clinically
--- NOTE | 2016-07-08 09:22 | RAD ---
HISTORY: difficulty breathing COMPARISON: 07/07/2016 FINDINGS: LUNGS: No active pulmonary disease. PLEURA: No significant pleural effusion identified, no pneumothorax apparent. CARDIOVASCULAR: Mild cardiomegaly. Mild vascular congestion OSSEOUS STRUCTURES: No significant abnormalities. VISUALIZED UPPER ABDOMEN: Normal. OTHER FINDINGS: None. IMPRESSION: Mild cardiomegaly and mild vascular congestion
--- NOTE | 2016-07-08 09:24 | CP.CCUPN ---
<Pippa Tineo - Last Filed: 07/08/16 10:55> CCU Subjective - Physician Review Events Since Last Encounter (Free Text): 07/08/16 10:55 RUG INSPECTOR called for respiratory distress on telemetry floor. Patient was seen and examined, in moderate respiratory distress with accessory muscle use, tachypnic. ABG shows pH 7.3, resp acidosis with CO2 retention (58). Patient was placed on BiPAP and transferred to ICU for monitoring of respiratory status. Followup ABG showed pH 7.29, CO2 56. Patient continued to be tachypnic, slightly somnolent, was intubated for hypercarbic respiratory failure. Critical Care Time Spent (in minutes): 60 CCU Objective - Vital Signs / Intake & Output Vital Signs (Last 4 hours): Vital Signs Temp Pulse Resp BP Pulse Ox 07/08/16 08:18 109 H 07/08/16 06:00 98.3 F 108 H 18 154/91 H 92 L Intake and Output (Last 8hrs): Intake & Output 07/07/16 07/08/16 07/08/16 22:59 06:59 14:59 Intake Total 820 Output Total 200 Balance 620 Intake: IV 600 Left Upper arm 600 Oral 220 Output: Urine 200 Urethral (Jc) 200 Other: Voiding Method Indwelling Catheter # Bowel Movements 0 - Physical Exam Head: Positive for: Atraumatic, Normocephalic. Negative for: Abrasion, Laceration Pupils: Positive for: PERRL Extroacular Muscles: Positive for: EOMI. Negative for: Entrapment Conjunctiva: Positive for: Normal. Negative for: Injected Mouth: Positive for: Moist Mucous Membranes, Normal Teeth (poor dentition) Respiratory/Chest: Positive for: Clear to Auscultation, Good Air Exchange, Rales (mild ), Tachypneic, Other (PRVC 450/15/50/5). Negative for: Respiratory Distress, Accessory Muscle Use Cardiovascular: Positive for: Regular Rate and Rhythm, Normal S1, S2. Negative for: Murmurs Abdomen: Positive for: Normal Bowel Sounds. Negative for: Tenderness, Distention, Peritoneal Signs Upper Extremity: Positive for: Normal Inspection, NORMAL PULSES, Neurovascularly Intact. Negative for: Cyanosis, Edema Lower Extremity: Positive for: Normal Inspection, Tenderness, Neurovascularly Intact, Other (abrasion right wright, chronic venous stasis changes foot and ankle B/L). Negative for: Edema, NORMAL PULSES (diminished PT and DP pulse B/L) , Swelling, Deformity Neurological: Positive for: GCS=15, CN II-XII Intact Skin: Positive for: Warm, Dry, Abrasion Psychiatric: Positive for: Alert, Other (intubated ) - Medications Active Medications: Active Medications Generic Name Dose Route Start Last Admin Trade Name Freq PRN Reason Stop Dose Admin Acetaminophen 650 mg 06/29/16 11:33 06/30/16 09:15 Tylenol 325mg Tab PO 650 mg Q4 PRN Administration Fever >100.4 F Albuterol/Ipratropium 3 ml 07/05/16 08:00 07/08/16 02:10 Duoneb 3 Mg/0.5 Mg (3 Ml) Ud IH Not Given [id number] SARAH Amlodipine Besylate 10 mg 07/06/16 10:00 07/07/16 09:53 Norvasc PO 10 mg DAILY SARAH Administration Aspirin 325 mg 07/02/16 10:00 07/07/16 09:53 Aspirin PO 325 mg DAILY SARAH Administration Clotrimazole 0 gm 06/29/16 18:00 07/07/16 18:53 Lotrimin 1% TOP 1 applic BID SARAH Administration Heparin Sodium (Porcine) 5,000 units 07/07/16 10:00 07/07/16 21:26 Heparin SC 5,000 units Q12 SARAH Administration Protocol Hydralazine HCl 10 mg 07/05/16 18:01 07/06/16 23:22 Apresoline IVP 10 mg Q6 PRN Administration Systolic Blood Pressure Dextrose 1,000 mls @ 50 mls/hr 07/07/16 09:15 07/08/16 06:16 Dextrose 5% In Water 1000 Ml IV 07/09/16 01:14 50 mls/hr .Q20H SARAH Administration Ceftriaxone Sodium 100 mls @ 100 mls/hr 07/07/16 10:00 07/07/16 09:55 Rocephin 2 Gm Ivpb IVPB 07/27/16 10:01 100 mls/hr DAILY SARAH Administration Protocol Metoprolol Tartrate 50 mg 07/06/16 18:00 07/07/16 18:52 Lopressor PO 50 mg 0800,1800 SARAH Administration Pantoprazole Sodium 40 mg 07/07/16 06:30 07/08/16 06:08 Protonix Ec Tab PO Not Given 0630 SARAH Risperidone 0.5 mg 07/07/16 10:00 07/07/16 09:52 Risperdal Tab PO 0.5 mg DAILY SARAH Administration Protocol Silver Sulfadiazine 0 ea 07/02/16 10:00 07/07/16 09:54 Silvadene 1% 20 Gm TOP 1 applic DAILY SARAH Administration Vitamin A 1 ea 07/07/16 07:41 07/07/16 09:54 Vitamin A & D Oint Ud Foilpak TOP 1 ea BID PRN Administration chapped lips - Patient Studies Lab Studies: Microbiology Studies 07/04/16 16:00 Blood Culture - Preliminary Blood-Venous NO GROWTH AFTER 3 DAYS 07/04/16 15:30 Blood Culture - Preliminary Blood-Venous NO GROWTH AFTER 3 DAYS Lab Studies 07/08/16 07/08/16 07/08/16 Range/Units 08:33 08:00 07:15 WBC 25.4 H* D (4.5-11.0) 10^3/ul RBC 4.40 (3.5-6.1) 10^6/uL Hgb 12.2 L (14.0-18.0) gm/dL Hct 37.6 L (42.0-52.0) % MCV 85.5 (80.0-105.0) fL MCH 27.7 (25.0-35.0) pg MCHC 32.4 (31.0-37.0) g/dl RDW 14.4 (11.5-14.5) % Plt Count 333 (120.0-450.0) 10^3/uL MPV 9.5 (7.0-11.0) fl pCO2 56 H 58 H (35-45) mm/Hg pO2 152.0 H 206.0 H (80-100) mm/Hg HCO3 26.9 28.5 H (21-28) mmol/L ABG pH 7.29 L 7.30 L (7.35-7.45) ABG Total CO2 28.6 H 30.3 H (22-28) mmol.L ABG O2 Saturation 99.2 H 99.0 H (95-98) % ABG O2 Content 15.6 16.6 (15-23) ML/dl ABG Base Excess -0.4 1.0 (-2.0-3.0) mmol/L ABG Hemoglobin 11.3 L 12.0 (11.7-17.4) g/dL ABG Carboxyhemoglobin 2.3 H 2.0 H (0.5-1.5) % POC ABG HHb (Measured) 0.8 1.0 (0-5) % ABG Methemoglobin 1.0 1.2 (0.0-3.0) % ABG O2 Capacity 15.7 L 16.8 (16-24) mL/dl Hgb O2 Saturation 96.0 95.8 (95.0-98.0) % FiO2 50.0 100.0 % Sodium 145 (132-148) mmol/L Potassium 4.2 (3.6-5.0) mmol/L Chloride 106 (98-107) mmol/L Carbon Dioxide 31 (21-33) mmol/L Anion Gap 12 (10-20) BUN 40 H (7-21) mg/dL Creatinine 1.2 (0.5-1.4) mg/dL Est GFR ( Amer) > 60 Est GFR (Non-Af Amer) 58 Random Glucose 153 H (70-110) mg/dL Calcium 9.7 (8.4-10.5) mg/dL Total Bilirubin 0.8 (0.2-1.3) mg/dL AST 101 H (15-59) U/L ALT 95 H (7-56) U/L Alkaline Phosphatase 79 (38-133) U/L Troponin I 1.00 H* D ng/mL NT-Pro-B Natriuret Pep (0-450) pg/mL Total Protein 6.8 (5.8-8.3) g/dL Albumin 3.0 (3.0-4.8) g/dL Globulin 3.8 gm/dL Albumin/Globulin Ratio 0.8 L (1.1-1.8) 07/07/16 Range/Units 06:20 WBC (4.5-11.0) 10^3/ul RBC (3.5-6.1) 10^6/uL Hgb (14.0-18.0) gm/dL Hct (42.0-52.0) % MCV (80.0-105.0) fL MCH (25.0-35.0) pg MCHC (31.0-37.0) g/dl RDW (11.5-14.5) % Plt Count (120.0-450.0) 10^3/uL MPV (7.0-11.0) fl pCO2 (35-45) mm/Hg pO2 (80-100) mm/Hg HCO3 (21-28) mmol/L ABG pH (7.35-7.45) ABG Total CO2 (22-28) mmol.L ABG O2 Saturation (95-98) % ABG O2 Content (15-23) ML/dl ABG Base Excess (-2.0-3.0) mmol/L ABG Hemoglobin (11.7-17.4) g/dL ABG Carboxyhemoglobin (0.5-1.5) % POC ABG HHb (Measured) (0-5) % ABG Methemoglobin (0.0-3.0) % ABG O2 Capacity (16-24) mL/dl Hgb O2 Saturation (95.0-98.0) % FiO2 % Sodium (132-148) mmol/L Potassium (3.6-5.0) mmol/L Chloride (98-107) mmol/L Carbon Dioxide (21-33) mmol/L Anion Gap (10-20) BUN (7-21) mg/dL Creatinine (0.5-1.4) mg/dL Est GFR ( Amer) Est GFR (Non-Af Amer) Random Glucose (70-110) mg/dL Calcium (8.4-10.5) mg/dL Total Bilirubin (0.2-1.3) mg/dL AST (15-59) U/L ALT (7-56) U/L Alkaline Phosphatase (38-133) U/L Troponin I ng/mL NT-Pro-B Natriuret Pep 6430 H (0-450) pg/mL Total Protein (5.8-8.3) g/dL Albumin (3.0-4.8) g/dL Globulin gm/dL Albumin/Globulin Ratio (1.1-1.8) Laboratory Results - last 24 hr 07/07/16 07/08/16 07/08/16 06:20 07:15 08:00 WBC 25.4 H* D RBC 4.40 Hgb 12.2 L Hct 37.6 L MCV 85.5 MCH 27.7 MCHC 32.4 RDW 14.4 Plt Count 333 MPV 9.5 pCO2 58 H pO2 206.0 H HCO3 28.5 H ABG pH 7.30 L ABG Total CO2 30.3 H ABG O2 Saturation 99.0 H ABG O2 Content 16.6 ABG Base Excess 1.0 ABG Hemoglobin 12.0 ABG Carboxyhemoglobin 2.0 H POC ABG HHb (Measured) 1.0 ABG Methemoglobin 1.2 ABG O2 Capacity 16.8 Hgb O2 Saturation 95.8 FiO2 100.0 Sodium 145 Potassium 4.2 Chloride 106 Carbon Dioxide 31 Anion Gap 12 BUN 40 H Creatinine 1.2 Est GFR ( Amer) > 60 Est GFR (Non-Af Amer) 58 Random Glucose 153 H Calcium 9.7 Total Bilirubin 0.8 AST 101 H ALT 95 H Alkaline Phosphatase 79 Troponin I 1.00 H* D NT-Pro-B Natriuret Pep 6430 H Total Protein 6.8 Albumin 3.0 Globulin 3.8 Albumin/Globulin Ratio 0.8 L 07/08/16 08:33 WBC RBC Hgb Hct MCV MCH MCHC RDW Plt Count MPV pCO2 56 H pO2 152.0 H HCO3 26.9 ABG pH 7.29 L ABG Total CO2 28.6 H ABG O2 Saturation 99.2 H ABG O2 Content 15.6 ABG Base Excess -0.4 ABG Hemoglobin 11.3 L ABG Carboxyhemoglobin 2.3 H POC ABG HHb (Measured) 0.8 ABG Methemoglobin 1.0 ABG O2 Capacity 15.7 L Hgb O2 Saturation 96.0 FiO2 50.0 Sodium Potassium Chloride Carbon Dioxide Anion Gap BUN Creatinine Est GFR ( Amer) Est GFR (Non-Af Amer) Random Glucose Calcium Total Bilirubin AST ALT Alkaline Phosphatase Troponin I NT-Pro-B Natriuret Pep Total Protein Albumin Globulin Albumin/Globulin Ratio EKG/Cardiology Studies: Cardiology / EKG Studies 07/08/16 EKG [ELECTROCARDIOGRAM] Urgent Comment: Reason For Exam: roll tender Review of Systems - Review of Systems Systems not reviewed;Unavailable: Intubated Critical Care Progress Note - Ventilator Checklist PUD Prophalyxis: Yes DVT Prophylaxis: Yes - Prophylaxis GI Prophylaxis GI: PPI - Prophylaxis DVT Prophylaxis DVT: Heparin SQ - Nutrition Nutrition: Nutrition Category Date Time Status Heart Healthy Diet [DIET] Diets 07/06/16 Lunch Ordered Assessment/Plan - Assessment and Plan (Free Text) Assessment: 80 yo M w h/o HTN, COPD, obesity, dementia initially admitted to [facility] [place] with Group G strep bacteremia, L foot MSSA infection initially transferred to ICU s/p RUG INSPECTOR due to hypoxic, hypercarbic RF requiring intubation and subsequently extubated, now s/p new RUG INSPECTOR and re-intubated 2/2 hypercarbic RF Plan: Neuro: Intubated, sedated on Fentanyl gtt and Versed PRN. DC propofol Maintain normothermia Patient has ATIVAN ALLERGY that has resulted in acute respiratory failure twice requiring intubation Pulm: Hypercarbic RF 2/2 Ativan with hypoventilation, patient was difficult to arouse, GCS worrisome for protecting airway requiring intubation ABG reviewed - resp acidosis resolved. Daily ABG while intubated CXR reviewed - ETT and OGT in proper positions. Daily CXR while intubated Duonebs Q6hr Currently on PRVC 450/15/50/5 Titrate to maintain spo2>90, pao2>60 Protective lung ventilation strategy HOB >35 CV: HD stable. s/p 1L NS bolus. Contineu to monitor, maintain MAP >65 Troponin down to 1.0 from 5.25 EKG and 2D ECHO show no new changes. Off heparin gtt. Management as per cardiology service. Continue cardiac meds as per cardio service, monitor hemodynamics, adjust meds as needed GI: GI ppx Renal: INEZ (unknown baseline) improved. Continue to monitor renal function and I &Os Acute rhabdomyolysis on admission improving Endo: No acute issues. Maintain euglycemia 140-180 ID: Significant leukocytosis today 25.4 from 14.7 yesterday. Low-grade temp overnight 100.0 Continue Rocephin for L foot MSSA cellulitis, Group G Strep bacteremia. Procalcitonin trending down 7.36 from 31.55. Repeat in AM Repeat Blood cultures have been negative thus far since 06/30 Continue to monitor, ID recs appreciated Heme: Hb stable. No signs of bleeding. DVT/GI ppx: SQH, protonix, NPO - Date & Time Date: 07/08/16 Time: 09:24 <Loco Villagran - Last Filed: 07/08/16 14:49> CCU Objective - Vital Signs / Intake & Output Vital Signs (Last 4 hours): Vital Signs Temp Pulse Resp BP Pulse Ox 07/08/16 14:00 67 07/08/16 12:16 67 07/08/16 11:43 100.2 F H 66 16 119/78 99 Intake and Output (Last 8hrs): Intake & Output 07/07/16 07/08/16 07/08/16 22:59 06:59 14:59 Intake Total 820 Output Total 200 Balance 620 Intake: IV 600 Left Upper arm 600 Oral 220 Output: Urine 200 Urethral (Jc) 200 Other: Voiding Method Indwelling Catheter # Bowel Movements 0 - Medications Active Medications: Active Medications Generic Name Dose Route Start Last Admin Trade Name Freq PRN Reason Stop Dose Admin Acetaminophen 650 mg 06/29/16 11:33 06/30/16 09:15 Tylenol 325mg Tab PO 650 mg Q4 PRN Administration Fever >100.4 F Albuterol/Ipratropium 3 ml 07/05/16 08:00 07/08/16 13:44 Duoneb 3 Mg/0.5 Mg (3 Ml) Ud IH 3 ml [id number] SARAH Administration Amlodipine Besylate 10 mg 07/06/16 10:00 07/08/16 10:07 Norvasc PO Not Given DAILY SARAH Aspirin 325 mg 07/02/16 10:00 07/08/16 10:50 Aspirin PO 325 mg DAILY SARAH Administration Clotrimazole 0 gm 06/29/16 18:00 07/08/16 10:32 Lotrimin 1% TOP 1 applic BID SARAH Administration Furosemide 40 mg 07/09/16 10:00 Lasix IVP DAILY SARAH Heparin Sodium (Porcine) 5,000 units 07/07/16 10:00 07/08/16 10:28 Heparin SC 5,000 units Q12 SARAH Administration Protocol Hydralazine HCl 10 mg 07/05/16 18:01 07/06/16 23:22 Apresoline IVP 10 mg Q6 PRN Administration Systolic Blood Pressure Dextrose 1,000 mls @ 50 mls/hr 07/07/16 09:15 07/08/16 06:16 Dextrose 5% In Water 1000 Ml IV 07/09/16 01:14 50 mls/hr .Q20H SARAH Administration Ceftriaxone Sodium 100 mls @ 100 mls/hr 07/07/16 10:00 07/08/16 11:16 Rocephin 2 Gm Ivpb IVPB 07/27/16 10:01 100 mls/hr DAILY SARAH Administration Protocol Fentanyl Citrate 100 mls @ 2 mls/hr 07/08/16 10:09 07/08/16 10:49 Fentanyl Citrate/Sodium Chloride 1 Mg/100 Ml IV 2 mls/hr .Q24H PRN Administration TITRATE PER MD ORDER Protocol 20 MCG/HR Metoprolol Tartrate 50 mg 07/06/16 18:00 07/08/16 10:17 Lopressor PO Not Given 0800,1800 SARAH Midazolam HCl 2 mg 07/08/16 10:27 07/08/16 11:18 Versed Inj IVP 2 mg Q4 PRN Administration Agitation Pantoprazole Sodium 40 mg 07/07/16 06:30 07/08/16 06:08 Protonix Ec Tab PO Not Given 0630 SARAH Risperidone 0.5 mg 07/07/16 10:00 07/08/16 10:07 Risperdal Tab PO Not Given DAILY SARAH Protocol Silver Sulfadiazine 0 ea 07/02/16 10:00 07/08/16 10:31 Silvadene 1% 20 Gm TOP 1 applic DAILY SARAH Administration Vitamin A 1 ea 07/07/16 07:41 07/07/16 09:54 Vitamin A & D Oint Ud Foilpak TOP 1 ea BID PRN Administration chapped lips - Patient Studies Lab Studies: Microbiology Studies 07/04/16 16:00 Blood Culture - Preliminary Blood-Venous NO GROWTH AFTER 3 DAYS 07/04/16 15:30 Blood Culture - Preliminary Blood-Venous NO GROWTH AFTER 3 DAYS Lab Studies 07/08/16 07/08/16 07/08/16 Range/Units 10:35 08:33 08:00 WBC 25.4 H* D (4.5-11.0) 10^3/ul RBC 4.40 (3.5-6.1) 10^6/uL Hgb 12.2 L (14.0-18.0) gm/dL Hct 37.6 L (42.0-52.0) % MCV 85.5 (80.0-105.0) fL MCH 27.7 (25.0-35.0) pg MCHC 32.4 (31.0-37.0) g/dl RDW 14.4 (11.5-14.5) % Plt Count 333 (120.0-450.0) 10^3/uL MPV 9.5 (7.0-11.0) fl Neutrophils % (Manual) 85 H (50.0-70.0) % Band Neutrophils % 4 H (0-2) % Lymphocytes % (Manual) 4 L (22.0-35.0) % Monocytes % (Manual) 7 H (1.0-6.0) % Platelet Evaluation Normal (NORMAL) pCO2 44 56 H (35-45) mm/Hg pO2 93.0 152.0 H (80-100) mm/Hg HCO3 26.0 26.9 (21-28) mmol/L ABG pH 7.38 7.29 L (7.35-7.45) ABG Total CO2 27.4 28.6 H (22-28) mmol.L ABG O2 Saturation 98.2 H 99.2 H (95-98) % ABG O2 Content 15.6 (15-23) ML/dl ABG Base Excess 0.5 -0.4 (-2.0-3.0) mmol/L ABG Hemoglobin 11.3 L (11.7-17.4) g/dL ABG Carboxyhemoglobin 2.3 H (0.5-1.5) % POC ABG HHb (Measured) 0.8 (0-5) % ABG Methemoglobin 1.0 (0.0-3.0) % ABG O2 Capacity 15.7 L (16-24) mL/dl ABG Potassium 3.9 (3.6-5.2) mmol/L Hgb O2 Saturation 96.0 (95.0-98.0) % Sodium 146.0 145 (132-148) mmol/L Chloride 117.0 H 106 (98-107) mmol/L Glucose 141 H (75-110) mg/dl Lactate 0.8 (0.7-2.1) mmol/L Mechanical Rate 15 FiO2 50.0 50.0 % Tidal Volume 450 PEEP 5 Potassium 4.2 (3.6-5.0) mmol/L Carbon Dioxide 31 (21-33) mmol/L Anion Gap 12 (10-20) BUN 40 H (7-21) mg/dL Creatinine 1.2 (0.5-1.4) mg/dL Est GFR ( Amer) > 60 Est GFR (Non-Af Amer) 58 Random Glucose 153 H (70-110) mg/dL Calcium 9.7 (8.4-10.5) mg/dL Total Bilirubin 0.8 (0.2-1.3) mg/dL AST 101 H (15-59) U/L ALT 95 H (7-56) U/L Alkaline Phosphatase 79 (38-133) U/L Troponin I 1.00 H* D ng/mL NT-Pro-B Natriuret Pep (0-450) pg/mL Total Protein 6.8 (5.8-8.3) g/dL Albumin 3.0 (3.0-4.8) g/dL Globulin 3.8 gm/dL Albumin/Globulin Ratio 0.8 L (1.1-1.8) Arterial Blood Potassium 3.9 (3.6-5.2) mmol/L 07/08/16 07/07/16 Range/Units 07:15 06:20 WBC (4.5-11.0) 10^3/ul RBC (3.5-6.1) 10^6/uL Hgb (14.0-18.0) gm/dL Hct (42.0-52.0) % MCV (80.0-105.0) fL MCH (25.0-35.0) pg MCHC (31.0-37.0) g/dl RDW (11.5-14.5) % Plt Count (120.0-450.0) 10^3/uL MPV (7.0-11.0) fl Neutrophils % (Manual) (50.0-70.0) % Band Neutrophils % (0-2) % Lymphocytes % (Manual) (22.0-35.0) % Monocytes % (Manual) (1.0-6.0) % Platelet Evaluation (NORMAL) pCO2 58 H (35-45) mm/Hg pO2 206.0 H (80-100) mm/Hg HCO3 28.5 H (21-28) mmol/L ABG pH 7.30 L (7.35-7.45) ABG Total CO2 30.3 H (22-28) mmol.L ABG O2 Saturation 99.0 H (95-98) % ABG O2 Content 16.6 (15-23) ML/dl ABG Base Excess 1.0 (-2.0-3.0) mmol/L ABG Hemoglobin 12.0 (11.7-17.4) g/dL ABG Carboxyhemoglobin 2.0 H (0.5-1.5) % POC ABG HHb (Measured) 1.0 (0-5) % ABG Methemoglobin 1.2 (0.0-3.0) % ABG O2 Capacity 16.8 (16-24) mL/dl ABG Potassium (3.6-5.2) mmol/L Hgb O2 Saturation 95.8 (95.0-98.0) % Sodium (132-148) mmol/L Chloride (98-107) mmol/L Glucose (75-110) mg/dl Lactate (0.7-2.1) mmol/L Mechanical Rate FiO2 100.0 % Tidal Volume PEEP Potassium (3.6-5.0) mmol/L Carbon Dioxide (21-33) mmol/L Anion Gap (10-20) BUN (7-21) mg/dL Creatinine (0.5-1.4) mg/dL Est GFR ( Amer) Est GFR (Non-Af Amer) Random Glucose (70-110) mg/dL Calcium (8.4-10.5) mg/dL Total Bilirubin (0.2-1.3) mg/dL AST (15-59) U/L ALT (7-56) U/L Alkaline Phosphatase (38-133) U/L Troponin I ng/mL NT-Pro-B Natriuret Pep 6430 H (0-450) pg/mL Total Protein (5.8-8.3) g/dL Albumin (3.0-4.8) g/dL Globulin gm/dL Albumin/Globulin Ratio (1.1-1.8) Arterial Blood Potassium (3.6-5.2) mmol/L Laboratory Results - last 24 hr 07/07/16 07/08/16 07/08/16 06:20 07:15 08:00 WBC 25.4 H* D RBC 4.40 Hgb 12.2 L Hct 37.6 L MCV 85.5 MCH 27.7 MCHC 32.4 RDW 14.4 Plt Count 333 MPV 9.5 Neutrophils % (Manual) 85 H Band Neutrophils % 4 H Lymphocytes % (Manual) 4 L Monocytes % (Manual) 7 H Platelet Evaluation Normal pCO2 58 H pO2 206.0 H HCO3 28.5 H ABG pH 7.30 L ABG Total CO2 30.3 H ABG O2 Saturation 99.0 H ABG O2 Content 16.6 ABG Base Excess 1.0 ABG Hemoglobin 12.0 ABG Carboxyhemoglobin 2.0 H POC ABG HHb (Measured) 1.0 ABG Methemoglobin 1.2 ABG O2 Capacity 16.8 ABG Potassium Hgb O2 Saturation 95.8 Glucose Lactate Mechanical Rate FiO2 100.0 Tidal Volume PEEP Sodium 145 Potassium 4.2 Chloride 106 Carbon Dioxide 31 Anion Gap 12 BUN 40 H Creatinine 1.2 Est GFR ( Amer) > 60 Est GFR (Non-Af Amer) 58 Random Glucose 153 H Calcium 9.7 Total Bilirubin 0.8 AST 101 H ALT 95 H Alkaline Phosphatase 79 Troponin I 1.00 H* D NT-Pro-B Natriuret Pep 6430 H Total Protein 6.8 Albumin 3.0 Globulin 3.8 Albumin/Globulin Ratio 0.8 L Arterial Blood Potassium 07/08/16 07/08/16 08:33 10:35 WBC RBC Hgb Hct MCV MCH MCHC RDW Plt Count MPV Neutrophils % (Manual) Band Neutrophils % Lymphocytes % (Manual) Monocytes % (Manual) Platelet Evaluation pCO2 56 H 44 pO2 152.0 H 93.0 HCO3 26.9 26.0 ABG pH 7.29 L 7.38 ABG Total CO2 28.6 H 27.4 ABG O2 Saturation 99.2 H 98.2 H ABG O2 Content 15.6 ABG Base Excess -0.4 0.5 ABG Hemoglobin 11.3 L ABG Carboxyhemoglobin 2.3 H POC ABG HHb (Measured) 0.8 ABG Methemoglobin 1.0 ABG O2 Capacity 15.7 L ABG Potassium 3.9 Hgb O2 Saturation 96.0 Glucose 141 H Lactate 0.8 Mechanical Rate 15 FiO2 50.0 50.0 Tidal Volume 450 PEEP 5 Sodium 146.0 Potassium Chloride 117.0 H Carbon Dioxide Anion Gap BUN Creatinine Est GFR ( Amer) Est GFR (Non-Af Amer) Random Glucose Calcium Total Bilirubin AST ALT Alkaline Phosphatase Troponin I NT-Pro-B Natriuret Pep Total Protein Albumin Globulin Albumin/Globulin Ratio Arterial Blood Potassium 3.9 EKG/Cardiology Studies: Cardiology / EKG Studies 07/08/16 EKG [ELECTROCARDIOGRAM] Urgent Comment: Reason For Exam: roll tender Critical Care Progress Note - Nutrition Nutrition: Nutrition Category Date Time Status Heart Healthy Diet [DIET] Diets 07/06/16 Lunch Ordered NPO Diet [DIET] Diets 07/08/16 Dinner Ordered Addendum Addendum: 07/08/16 14:49 patient was seen and examined with ICU resident Dr. Anastacio Johnson. Please see Dr. Villagran note
[2016-07-08] MEDS ORDERED: Propofol 10 mg/ml 50 ML IV PRN (09:32)
[2016-07-08] MEDS ORDERED: Sodium Chloride 0.9% 1,000 ML IV STA (10:06)
[2016-07-08] MEDS ORDERED: Fentanyl 1000mcg/100ml NS 100 ML IV PRN (10:09)
[2016-07-08 10:12] LABS: BAND 4 % (0-2); NEUTROPHIL 85 % (50.0-70.0); PLATELET ESTIMATE NORMAL (NORMAL)
[2016-07-08] MEDS: Silver Sulfadiazine 1% Cream (20 gm) TOP SCH (10:31)
[2016-07-08] MEDS: Clotrimazole 1% Cream(30 gm) TOP SCH ×2 (10:32→18:26)
[2016-07-08 10:41] LABS: ABG MECHANICAL RATE 15; ARTERIAL BLOOD GAS PH 7.38 (7.35-7.45); ATERIAL BLOOD GAS PEEP 5
--- NOTE | 2016-07-08 10:49 | RAD ---
HISTORY: s/p intubation, ETT, OGT COMPARISON: Earlier same day FINDINGS: LUNGS: The endotracheal and nasogastric tubes are in satisfactory position. There is a slight decrease in vascular congestion PLEURA: No significant pleural effusion identified, no pneumothorax apparent. CARDIOVASCULAR: Normal. OSSEOUS STRUCTURES: No significant abnormalities. VISUALIZED UPPER ABDOMEN: Normal. OTHER FINDINGS: None. IMPRESSION: The endotracheal and nasogastric tubes are in satisfactory position. There is a slight decrease in vascular congestion
[2016-07-08] MEDS: Midazolam 2 MG/2 ML VIAL IVP PRN ×2 (11:18→16:40)
--- NOTE | 2016-07-08 12:13 | PROCN ---
DATE: 07/08/2016 PROCEDURE: Endotracheal intubation. INDICATION: Hypercapnic respiratory failure, inability to protect airways, altered mental status. The patient was preoxygenated with 100% FiO2 via Ambu bag. Two liters IV fluid started wide open , patient was sedated with 5 mL of propofol. Direct laryngoscopy performed with MAC 3 curved blade. Vocal cords visualized. Trachea was cannulated with 7.5 German endotracheal tube. Secured at 25 cm at lips. Position confirmed by change of the color of the end tidal CO2 monitor, gastric auscultation, and bilateral lung auscultation. Subsequent chest x-ray also confirmed correct position of the ET as well. The patient tolerated procedure well. Vital signs were monitored throughout the procedure and were wrote stable. Loco Villagran MD cc: [id number] TT: 07/08/2016 12:12:46 Confirmation # [id number] Dictation # [id number] MTDD
--- NOTE | 2016-07-08 14:16 | CARD ---
APPROVED REPORT EKG Measurement Heart [id number] <Conclusion> Sinus rhythm with 1st degree AV block Right bundle branch block Inferior infarct, age undetermined T wave abnormality, consider lateral ischemia Abnormal ECG
--- NOTE | 2016-07-08 14:22 | PN ---
DATE: 07/08/2016 SUBJECTIVE: The patient has been reintubated secondary to recurrent respiratory failure. He is jay earl on propofol on the ventilator. OBJECTIVE: VITAL SIGNS: Blood pressure 119/78, temperature 100.2 axillary, pulse 66. Ventilator settings are a ssist control rate 15, tidal volume 450, FiO2 50%, PEEP 3. LUNGS: Show good air entry bilaterally with scattered crepitations. Endotracheal tube is intact. HEART: Regular rate and rhythm. ABDOMEN: Soft, nontender, bowel sounds are hypoactive. EXTREMITIES: With dependent edema to the sacrum. Wound dressings of the lower extremities are intac t. NEUROLOGIC: The patient is sedated. SKIN: Warm and dry. LABORATORY DATA: WBCs 25.4, hemoglobin 12.2, hematocrit 37.6. Sodium 145, potassium 4.2, chloride 1 06, CO2 31, BUN 40, creatinine 1.2, glucose 153. Troponin is 1.0. BNP 6430. Arterial blood gas salomon ws a pH of 7.38, pCO2 44, pO2 93, bicarbonate 26, O2 saturation 98.2% on the above ventilator setting s. Chest x-ray shows pulmonary vascular congestion, which is decreased from previous. IMPRESSION: 1. Ventilatory failure, possibly due to multifactorial causes including congestive heart failure wit h excessive sedation, rule out underlying cardiac ischemia or acute infarct. 2. Paroxysmal atrial fibrillation with intermittent rapid ventricular rate, on anticoagulation. 3. Status post rhabdomyolysis with acute renal failure superimposed on mild chronic kidney disease. 4. Coronary artery disease, rule out ischemia/infarct. 5. Dementia with superimposed delirium, secondary to underlying metabolic disorder. 6. Immobility, secondary to severe degenerative joint disease and obesity with deconditioning. PLAN: The patient has been started on IV Lasix. Will check serial troponin and BNP levels. Would a void IV sedation. Would avoid physical and chemical restraints and start 1:1 observation if needed. Continue cardiology, pulmonary, infectious disease followup. Consider central venous or Guild-Jovana c atheter placement if there is a question regarding fluid status. Prognosis is guarded. Family is aw are. Leonid Calderón JD, MD cc: [id number] TT: 07/08/2016 14:21:59 Confirmation # [id number] Dictation # [id number] en
--- NOTE | 2016-07-08 14:24 | PN ---
DATE: 07/08/2016 The patient seen and examined at bedside. He was admitted to ICU after substantial somnolence noted during presentation at rapid response. The patient initially was seen on the floor where he was obtunded and hard to arouse. No more preceding history is available except for the fact that he received p.r.n. dose of Ativan for agitation. BiPAP tried; however, could not succeed in improving his blood gas and mental status. The patient was transferred to ICU and decision was made to intubate the patient. No nausea, no vomiting, no diarrhea, no constipation. PHYSICAL EXAMINATION: VITAL SIGNS: Temperature 100.2, blood pressure 119/78, respiratory rate 16, oxygen saturation 98% on 50% FIO2, ventilator settings 450/15/5/50%. The patient is on fentanyl drip and Versed p.r.n. HEAD AND NECK: Atraumatic. LUNGS: Clear to auscultation bilaterally. HEART: Regular rate and rhythm, S1, S2 normal. ABDOMEN: Soft, nontender, nondistended. MUSCULOSKELETAL: No C/C/E. NEUROLOGIC: The patient was observed slightly moving all extremities spontaneously. SKIN: Moist. PSYCHIATRIC: The patient is intubated and sedated. LABORATORY DATA: ABG before intubation 7.29/56/152. ABG about 1 hour after intubation 7.38/44/93, pO2 93. WBC 24.5, hemoglobin 12.2, platelet count 333. Sodium 145, potassium 4.2, chloride 106, carbon dioxide 31, BUN 40, creatinine 1.2 down from 1.3, glucose 153. Troponin 1 down from 5.25. Procalcitonin is pending. MEDICATIONS: DuoNeb every 6, hydralazine p.r.n., aspirin, D5 in water, fentanyl drip, heparin 5000 subQ q. 12, Lasix, metoprolol, amlodipine, Protonix , ceftriaxone, Tylenol p.r.n., Versed p.r.n., topical vitamin D. ASSESSMENT AND PLAN: This is an 80-year-old gentleman with now cleared group G Streptococcus bacteremia and now resolved septic shock presented with hypecapnic respiratory failure, likely multifactorial, but might have been tipped over by use of BZD. The patient had multiorgan dysfunction syndrome which also improved concomittantly with resolution of septic shock. His acute kidney injury almost resolved. His troponin is going down. It is likely that component of his hypercarbic respiratory failure may be attributed to dose of Ativan and we will avoid benzodiazepines, opiates when extubated. It is possible that the patient is delirious and his agitation may have been related to delirium due to critical illness. Instead of benzodiazepines and opiates, I would use antipsychotics p.r.n. for agitation in this patient. Meanwhile we will order procalcitonin to see if it is trending down to know whether it is worthwhile to escalate antibiotic therapy. Infectious disease service is following the patient as well. Chest x-ray looks somewhat better (more aerated) , but it may be due to PPV. We will continue with protective lung ventilation strategy to avoid ventilator-induced lung injury, conservative fluid and oxygen management. We will continue with antibiotics, head of bed elevated at more than 35 degrees. We will continue to maintain euvolemia, euglycemia, normothermia and oxygen saturation more than 90%. We will continue with bronchodilators, pulmonary toilet. We will continue with maintaining blood glucose within 140-180 area. We will continue with deep venous thrombosis and gastrointestinal prophylaxis. We will continue with enteral nutrition. ccm time 40 min Loco Villagran MD cc: [id number] TT: 07/08/2016 14:23:31 Confirmation # [id number] Dictation # [id number] tn MTDD
[2016-07-09] MEDS: Albuterol-Ipratrop 3 mg / 0.5 (3 ml) UD IH SCH ×4 (01:24→20:36)
[2016-07-09 05:36] LABS: ARTERIAL BLOOD GAS HCO3 25.6 mmol/L (21-28); ARTERIAL BLOOD GAS O2 CONTENT 15.8 ML/dl (15-23); ARTERIAL BLOOD GAS PH 7.46 (7.35-7.45); ARTERIAL BLOOD HGB O2 SAT 96.4 % (95.0-98.0); CARBOXYHEMOGLOBIN 1.7 % (0.5-1.5); METHEMOGLOBIN 0.9 % (0.0-3.0)
[2016-07-09 05:41] LABS: HEMATOCRIT 28.5 % (42.0-52.0); MEAN CELL VOLUME 85.3 fL (80.0-105.0); MEAN CORPUSCULAR HEMOGLOBIN 28.1 pg (25.0-35.0); MEAN PLATELET VOLUME 9.4 fl (7.0-11.0); RED CELL DISTRIBUTION WIDTH 14.6 % (11.5-14.5); WHITE BLOOD COUNT 11.6 10^3/ul (4.5-11.0)
[2016-07-09 05:51] LABS: ALB/GLOB RATIO 0.7 (1.1-1.8); BILIRUBIN,TOTAL 0.6 mg/dL (0.2-1.3); CALCIUM 8.9 mg/dL (8.4-10.5); MAGNESIUM 1.9 mg/dL (1.7-2.2); PHOSPHOROUS 4.8 mg/dL (2.5-4.5); POTASSIUM 3.8 mmol/L (3.6-5.0); TOTAL PROTEIN 5.5 g/dL (5.8-8.3)
[2016-07-09] MEDS: Vitamins A & D Oint UD Foilpak TOP PRN (06:18)
--- NOTE | 2016-07-09 07:46 | CP.CCUPN ---
<Pippa Tineo - Last Filed: 07/09/16 11:43> CCU Subjective - Physician Review Events Since Last Encounter (Free Text): 07/09/16 07:01 Patient seen and examined bedside. No acute events overnight. Patient is relatively restless, asking for water. Placed on PS 5/5 @35%, tolerating well. 07/09/16 10:02 Patient tolerated PS, successfully extubated to 3L NC. Denies CP, SOB, abd pain , n/v, fevers, chills. Tolerating CLD without nausea, vomiting, abd pain. Good cough, able to protect airway. Critical Care Time Spent (in minutes): 40 CCU Objective - Vital Signs / Intake & Output Vital Signs (Last 4 hours): Vital Signs Temp Pulse Resp BP Pulse Ox 07/09/16 07:38 76 07/09/16 07:21 25 H 99 07/09/16 07:00 75 164/68 H 97 07/09/16 06:00 99.9 F H 71 22 164/68 H 96 07/09/16 05:00 64 129/47 L 95 07/09/16 04:00 72 135/55 L 96 07/09/16 03:57 76 97 Intake and Output (Last 8hrs): Intake & Output 07/08/16 07/09/16 07/09/16 22:59 06:59 14:59 Intake Total 1122 120 Output Total 775 425 Balance 347 -305 Intake: IV 1122 120 .9NS 1000 60 Antibiotic 100 Fentanyl drip 22 60 Oral 0 Tube Feeding 0 TPN/PPN 0 Blood Product 0 Lipid 0 Albumin 0 Other 0 Output: Gastric Drainage 0 Urethral (Baer) 0 Urine 775 425 Urethral (Baer) 775 425 Stool 0 Urethral (Baer) 0 Urine/Stool Mix 0 Urethral (Baer) 0 Emesis 0 Urethral (Baer) 0 Oral Regurgitation 0 Urethral (Baer) 0 Other 0 Urethral (Baer) 0 Other: Voiding Method Indwelling Catheter # Voids Urethral (Baer) 0 # Bowel Movements Urethral (Baer) 0 - Physical Exam Head: Positive for: Atraumatic, Normocephalic. Negative for: Abrasion, Laceration Pupils: Positive for: PERRL Extroacular Muscles: Positive for: EOMI. Negative for: Entrapment Conjunctiva: Positive for: Normal. Negative for: Injected Mouth: Positive for: Dry, Normal Teeth (poor dentition) Respiratory/Chest: Positive for: Clear to Auscultation, Good Air Exchange. Negative for: Respiratory Distress, Accessory Muscle Use, Rales, Tachypneic Cardiovascular: Positive for: Regular Rate and Rhythm, Normal S1, S2. Negative for: Murmurs Abdomen: Positive for: Normal Bowel Sounds. Negative for: Tenderness, Distention, Peritoneal Signs Upper Extremity: Positive for: Normal Inspection, NORMAL PULSES, Neurovascularly Intact. Negative for: Cyanosis, Edema Lower Extremity: Positive for: Normal Inspection, Tenderness, Neurovascularly Intact, Other (abrasion right wright, chronic venous stasis changes foot and ankle B/L). Negative for: Edema, NORMAL PULSES (diminished PT and DP pulse B/L) , Swelling, Deformity Neurological: Positive for: GCS=15, CN II-XII Intact Skin: Positive for: Warm, Dry, Abrasion Psychiatric: Positive for: Alert, Oriented x 3 - Medications Active Medications: Active Medications Generic Name Dose Route Start Last Admin Trade Name Freq PRN Reason Stop Dose Admin Acetaminophen 650 mg 06/29/16 11:33 06/30/16 09:15 Tylenol 325mg Tab PO 650 mg Q4 PRN Administration Fever >100.4 F Albuterol/Ipratropium 3 ml 07/05/16 08:00 07/09/16 07:11 Duoneb 3 Mg/0.5 Mg (3 Ml) Ud IH 3 ml [id number] SARAH Administration Amlodipine Besylate 10 mg 07/06/16 10:00 07/08/16 10:07 Norvasc PO Not Given DAILY SARAH Aspirin 325 mg 07/02/16 10:00 07/08/16 10:50 Aspirin PO 325 mg DAILY SARAH Administration Clotrimazole 0 gm 06/29/16 18:00 07/08/16 18:26 Lotrimin 1% TOP 1 applic BID SARAH Administration Furosemide 40 mg 07/09/16 10:00 Lasix IVP DAILY SARAH Heparin Sodium (Porcine) 5,000 units 07/07/16 10:00 07/08/16 21:07 Heparin SC 5,000 units Q12 SARAH Administration Protocol Hydralazine HCl 10 mg 07/05/16 18:01 07/06/16 23:22 Apresoline IVP 10 mg Q6 PRN Administration Systolic Blood Pressure Ceftriaxone Sodium 100 mls @ 100 mls/hr 07/07/16 10:00 07/08/16 11:16 Rocephin 2 Gm Ivpb IVPB 07/27/16 10:01 100 mls/hr DAILY SARAH Administration Protocol Fentanyl Citrate 100 mls @ 2 mls/hr 07/08/16 10:09 07/09/16 07:05 Fentanyl Citrate/Sodium Chloride 1 Mg/100 Ml IV 0 mcg/hr .Q24H PRN Titration TITRATE PER MD ORDER Protocol 20 MCG/HR Metoprolol Tartrate 50 mg 07/06/16 18:00 07/08/16 18:24 Lopressor PO 50 mg 0800,1800 SARAH Administration Midazolam HCl 2 mg 07/08/16 10:27 07/08/16 16:40 Versed Inj IVP 2 mg Q4 PRN Administration Agitation Pantoprazole Sodium 40 mg 07/09/16 06:30 07/09/16 06:18 Protonix Inj IVP 40 mg 0630 SARAH Administration Risperidone 0.5 mg 07/07/16 10:00 07/08/16 10:07 Risperdal Tab PO Not Given DAILY SARAH Protocol Silver Sulfadiazine 0 ea 07/02/16 10:00 07/08/16 10:31 Silvadene 1% 20 Gm TOP 1 applic DAILY SARAH Administration Vitamin A 1 ea 07/07/16 07:41 07/09/16 06:18 Vitamin A & D Oint Ud Foilpak TOP 1 ea BID PRN Administration chapped lips - Patient Studies Lab Studies: Microbiology Studies 07/04/16 16:00 Blood Culture - Preliminary Blood-Venous NO GROWTH AFTER 4 DAYS 07/04/16 15:30 Blood Culture - Preliminary Blood-Venous NO GROWTH AFTER 4 DAYS Lab Studies 07/09/16 07/09/16 07/08/16 Range/Units 05:15 05:00 18:33 WBC 11.6 H D (4.5-11.0) 10^3/ul RBC 3.34 L (3.5-6.1) 10^6/uL Hgb 9.4 L (14.0-18.0) gm/dL Hct 28.5 L (42.0-52.0) % MCV 85.3 (80.0-105.0) fL MCH 28.1 (25.0-35.0) pg MCHC 33.0 (31.0-37.0) g/dl RDW 14.6 H (11.5-14.5) % Plt Count 245 (120.0-450.0) 10^3/uL MPV 9.4 (7.0-11.0) fl Neutrophils % (Manual) (50.0-70.0) % Band Neutrophils % (0-2) % Lymphocytes % (Manual) (22.0-35.0) % Monocytes % (Manual) (1.0-6.0) % Platelet Evaluation (NORMAL) pCO2 36 (35-45) mm/Hg pO2 127.0 H (80-100) mm/Hg HCO3 25.6 (21-28) mmol/L ABG pH 7.46 H (7.35-7.45) ABG Total CO2 26.7 (22-28) mmol.L ABG O2 Saturation 99.0 H (95-98) % ABG O2 Content 15.8 (15-23) ML/dl ABG Base Excess 1.9 (-2.0-3.0) mmol/L ABG Hemoglobin 11.5 L (11.7-17.4) g/dL ABG Carboxyhemoglobin 1.7 H (0.5-1.5) % POC ABG HHb (Measured) 1.0 (0-5) % ABG Methemoglobin 0.9 (0.0-3.0) % ABG O2 Capacity 16.0 (16-24) mL/dl ABG Potassium (3.6-5.2) mmol/L Hgb O2 Saturation 96.4 (95.0-98.0) % Glucose (75-110) mg/dl Lactate (0.7-2.1) mmol/L Mechanical Rate FiO2 40.0 % Tidal Volume PEEP Sodium 145 (132-148) mmol/L Potassium 3.8 (3.6-5.0) mmol/L Chloride 109 H (98-107) mmol/L Carbon Dioxide 29 (21-33) mmol/L Anion Gap 11 (10-20) BUN 55 H (7-21) mg/dL Creatinine 1.7 H (0.5-1.4) mg/dL Est GFR ( Amer) 47 Est GFR (Non-Af Amer) 39 Random Glucose 111 H (70-110) mg/dL Calcium 8.9 (8.4-10.5) mg/dL Phosphorus 4.8 H (2.5-4.5) mg/dL Magnesium 1.9 (1.7-2.2) mg/dL Total Bilirubin 0.6 (0.2-1.3) mg/dL AST 60 H (15-59) U/L ALT 62 H (7-56) U/L Alkaline Phosphatase 56 (38-133) U/L Troponin I ng/mL Total Protein 5.5 L (5.8-8.3) g/dL Albumin 2.3 L (3.0-4.8) g/dL Globulin 3.2 gm/dL Albumin/Globulin Ratio 0.7 L (1.1-1.8) Procalcitonin 1.23 H (0.19-0.49) NG/ML Arterial Blood Potassium (3.6-5.2) mmol/L 07/08/16 07/08/16 07/08/16 Range/Units 10:35 08:33 08:00 WBC 25.4 H* D (4.5-11.0) 10^3/ul RBC 4.40 (3.5-6.1) 10^6/uL Hgb 12.2 L (14.0-18.0) gm/dL Hct 37.6 L (42.0-52.0) % MCV 85.5 (80.0-105.0) fL MCH 27.7 (25.0-35.0) pg MCHC 32.4 (31.0-37.0) g/dl RDW 14.4 (11.5-14.5) % Plt Count 333 (120.0-450.0) 10^3/uL MPV 9.5 (7.0-11.0) fl Neutrophils % (Manual) 85 H (50.0-70.0) % Band Neutrophils % 4 H (0-2) % Lymphocytes % (Manual) 4 L (22.0-35.0) % Monocytes % (Manual) 7 H (1.0-6.0) % Platelet Evaluation Normal (NORMAL) pCO2 44 56 H (35-45) mm/Hg pO2 93.0 152.0 H (80-100) mm/Hg HCO3 26.0 26.9 (21-28) mmol/L ABG pH 7.38 7.29 L (7.35-7.45) ABG Total CO2 27.4 28.6 H (22-28) mmol.L ABG O2 Saturation 98.2 H 99.2 H (95-98) % ABG O2 Content 15.6 (15-23) ML/dl ABG Base Excess 0.5 -0.4 (-2.0-3.0) mmol/L ABG Hemoglobin 11.3 L (11.7-17.4) g/dL ABG Carboxyhemoglobin 2.3 H (0.5-1.5) % POC ABG HHb (Measured) 0.8 (0-5) % ABG Methemoglobin 1.0 (0.0-3.0) % ABG O2 Capacity 15.7 L (16-24) mL/dl ABG Potassium 3.9 (3.6-5.2) mmol/L Hgb O2 Saturation 96.0 (95.0-98.0) % Glucose 141 H (75-110) mg/dl Lactate 0.8 (0.7-2.1) mmol/L Mechanical Rate 15 FiO2 50.0 50.0 % Tidal Volume 450 PEEP 5 Sodium 146.0 145 (132-148) mmol/L Potassium 4.2 (3.6-5.0) mmol/L Chloride 117.0 H 106 (98-107) mmol/L Carbon Dioxide 31 (21-33) mmol/L Anion Gap 12 (10-20) BUN 40 H (7-21) mg/dL Creatinine 1.2 (0.5-1.4) mg/dL Est GFR ( Amer) > 60 Est GFR (Non-Af Amer) 58 Random Glucose 153 H (70-110) mg/dL Calcium 9.7 (8.4-10.5) mg/dL Phosphorus (2.5-4.5) mg/dL Magnesium (1.7-2.2) mg/dL Total Bilirubin 0.8 (0.2-1.3) mg/dL AST 101 H (15-59) U/L ALT 95 H (7-56) U/L Alkaline Phosphatase 79 (38-133) U/L Troponin I 1.00 H* D ng/mL Total Protein 6.8 (5.8-8.3) g/dL Albumin 3.0 (3.0-4.8) g/dL Globulin 3.8 gm/dL Albumin/Globulin Ratio 0.8 L (1.1-1.8) Procalcitonin (0.19-0.49) NG/ML Arterial Blood Potassium 3.9 (3.6-5.2) mmol/L Laboratory Results - last 24 hr 07/08/16 07/08/16 07/08/16 08:00 08:33 10:35 WBC 25.4 H* D RBC 4.40 Hgb 12.2 L Hct 37.6 L MCV 85.5 MCH 27.7 MCHC 32.4 RDW 14.4 Plt Count 333 MPV 9.5 Neutrophils % (Manual) 85 H Band Neutrophils % 4 H Lymphocytes % (Manual) 4 L Monocytes % (Manual) 7 H Platelet Evaluation Normal pCO2 56 H 44 pO2 152.0 H 93.0 HCO3 26.9 26.0 ABG pH 7.29 L 7.38 ABG Total CO2 28.6 H 27.4 ABG O2 Saturation 99.2 H 98.2 H ABG O2 Content 15.6 ABG Base Excess -0.4 0.5 ABG Hemoglobin 11.3 L ABG Carboxyhemoglobin 2.3 H POC ABG HHb (Measured) 0.8 ABG Methemoglobin 1.0 ABG O2 Capacity 15.7 L ABG Potassium 3.9 Hgb O2 Saturation 96.0 Glucose 141 H Lactate 0.8 Mechanical Rate 15 FiO2 50.0 50.0 Tidal Volume 450 PEEP 5 Sodium 145 146.0 Potassium 4.2 Chloride 106 117.0 H Carbon Dioxide 31 Anion Gap 12 BUN 40 H Creatinine 1.2 Est GFR ( Amer) > 60 Est GFR (Non-Af Amer) 58 Random Glucose 153 H Calcium 9.7 Phosphorus Magnesium Total Bilirubin 0.8 AST 101 H ALT 95 H Alkaline Phosphatase 79 Troponin I 1.00 H* D Total Protein 6.8 Albumin 3.0 Globulin 3.8 Albumin/Globulin Ratio 0.8 L Procalcitonin Arterial Blood Potassium 3.9 07/08/16 07/09/16 07/09/16 18:33 05:00 05:15 WBC 11.6 H D RBC 3.34 L Hgb 9.4 L Hct 28.5 L MCV 85.3 MCH 28.1 MCHC 33.0 RDW 14.6 H Plt Count 245 MPV 9.4 Neutrophils % (Manual) Band Neutrophils % Lymphocytes % (Manual) Monocytes % (Manual) Platelet Evaluation pCO2 36 pO2 127.0 H HCO3 25.6 ABG pH 7.46 H ABG Total CO2 26.7 ABG O2 Saturation 99.0 H ABG O2 Content 15.8 ABG Base Excess 1.9 ABG Hemoglobin 11.5 L ABG Carboxyhemoglobin 1.7 H POC ABG HHb (Measured) 1.0 ABG Methemoglobin 0.9 ABG O2 Capacity 16.0 ABG Potassium Hgb O2 Saturation 96.4 Glucose Lactate Mechanical Rate FiO2 40.0 Tidal Volume PEEP Sodium 145 Potassium 3.8 Chloride 109 H Carbon Dioxide 29 Anion Gap 11 BUN 55 H Creatinine 1.7 H Est GFR ( Amer) 47 Est GFR (Non-Af Amer) 39 Random Glucose 111 H Calcium 8.9 Phosphorus 4.8 H Magnesium 1.9 Total Bilirubin 0.6 AST 60 H ALT 62 H Alkaline Phosphatase 56 Troponin I Total Protein 5.5 L Albumin 2.3 L Globulin 3.2 Albumin/Globulin Ratio 0.7 L Procalcitonin 1.23 H Arterial Blood Potassium Review of Systems - Constitutional Constitutional: absent: Fever, Chills - EENT Eyes: absent: Change in Vision Ears: absent: Dizziness - Cardiovascular Cardiovascular: absent: Chest Pain, Diaphoresis, Dyspnea, Palpitations - Respiratory Respiratory: absent: Cough, Dyspnea, Pain on Inspiration - Gastrointestinal Gastrointestinal: absent: Abdominal Pain, Diarrhea, Nausea, Vomiting - Genitourinary Genitourinary: absent: Flank Pain - Integumentary Integumentary: absent: New Lesions - Neurological Neurological: absent: Focal Weakness - Endocrine Endocrine: absent: Palpitations Critical Care Progress Note - Ventilator Checklist PUD Prophalyxis: Yes DVT Prophylaxis: Yes - Nutrition Nutrition: Nutrition Category Date Time Status NPO Diet [DIET] Diets 07/08/16 Dinner Ordered Assessment/Plan - Assessment and Plan (Free Text) Assessment: 80 yo M w h/o HTN, COPD, obesity, dementia initially admitted to [facility] with Group G strep bacteremia, L foot MSSA infectionnow resolved initially transferred to ICU s/p [employer] due to multifactorial hypoxic, hypercarbic RF exacerbated by Benzo administration, requiring intubation and subsequently extubated x2 Plan: Neuro: AAOx3, NAD, s/p successful extubation this AM. Good cough, gag reflex, protecting airway Maintain normothermia Patient has ATIVAN ALLERGY that has resulted in acute respiratory failure twice requiring intubation If patient becomes delirious, recommend haldol or geodon. NO ativan or benzos , no narcotics Risperidone as per primary team Pulm: s/p hypercarbic RF 2/2 Ativan with hypoventilation, patient was difficult to arouse, GCS worrisome for protecting airway requiring intubation x2 ABG reviewed - resp acidosis resolved Duonebs Q6hr Tolerating 3L NC. Titrate to maintain spo2>90, pao2>60 Aspiration precautions. HOB >35 CV: HD stable. Continue to monitor, maintain MAP >65 Troponin down to 1.0 from 5.25. EKG shows T wave inversions leads V2-V5, II, III, aVF, no new changes. Patient and family deny h/o previous IN or stening. Management as per cardiology Continue cardiac meds as per cardio service, monitor hemodynamics, adjust meds as needed Hold lasix for now due to mild clinical hypovolemia. Direct observed therapy with oral hydration. GI: GI ppx : DC baer catheter, post-void trial Renal: INEZ 1.7 from 1.2 today. Hold lasix for now due to mild clinical hypovolemia. Direct observed therapy with oral hydration. Continue to monitor renal function and I&Os Acute rhabdomyolysis on admission improving Endo: No acute issues. Maintain euglycemia 140-180 ID: Significant leukocytosis yesterday 25.4 to 11.6 today. Low-grade temp Tmax overnight 100.2F Continue Rocephin to finish Group G Strep bacteremia therapy . Procalcitonin trending down 1.23 from 7.36, from 31.55 at admission. Repeat Blood cultures have been negative thus far since 06/30 Will DC baer catheter Heme: Hb stable. No signs of bleeding. DVT/GI ppx: SQH, PT, protonix, CLD - Date & Time Date: 07/09/16 Time: 11:45 <Loco Villagran - Last Filed: 07/09/16 12:53> CCU Objective - Vital Signs / Intake & Output Vital Signs (Last 4 hours): Vital Signs Temp Pulse Resp BP Pulse Ox 07/09/16 12:00 97.6 F 69 20 119/56 L 97 07/09/16 11:07 69 28 H 99 07/09/16 11:00 72 17 119/56 L 99 07/09/16 10:00 65 23 119/41 L 99 07/09/16 09:00 101 H 27 H 130/60 95 Intake and Output (Last 8hrs): Intake & Output 07/08/16 07/09/16 07/09/16 22:59 06:59 14:59 Intake Total 1122 120 Output Total 775 425 Balance 347 -305 Weight 247 lb 1.6 oz Intake: IV 1122 120 .9NS 1000 60 Antibiotic 100 Fentanyl drip 22 60 Oral 0 Tube Feeding 0 TPN/PPN 0 Blood Product 0 Lipid 0 Albumin 0 Other 0 Output: Gastric Drainage 0 Urethral (Baer) 0 Urine 775 425 Urethral (Baer) 775 425 Stool 0 Urethral (Baer) 0 Urine/Stool Mix 0 Urethral (Baer) 0 Emesis 0 Urethral (Baer) 0 Oral Regurgitation 0 Urethral (Baer) 0 Other 0 Urethral (Baer) 0 Other: Voiding Method Indwelling Catheter Indwelling Catheter # Voids Urethral (Baer) 0 # Bowel Movements Urethral (Baer) 0 - Medications Active Medications: Active Medications Generic Name Dose Route Start Last Admin Trade Name Freq PRN Reason Stop Dose Admin Acetaminophen 650 mg 06/29/16 11:33 06/30/16 09:15 Tylenol 325mg Tab PO 650 mg Q4 PRN Administration Fever >100.4 F Albuterol/Ipratropium 3 ml 07/05/16 08:00 07/09/16 07:11 Duoneb 3 Mg/0.5 Mg (3 Ml) Ud IH 3 ml [id number] SARAH Administration Amlodipine Besylate 10 mg 07/06/16 10:00 07/09/16 09:00 Norvasc PO 10 mg DAILY SARAH Administration Aspirin 325 mg 07/02/16 10:00 07/09/16 08:59 Aspirin PO 325 mg DAILY SARAH Administration Clotrimazole 0 gm 06/29/16 18:00 07/09/16 09:01 Lotrimin 1% TOP 1 applic BID SARAH Administration Furosemide 40 mg 07/09/16 10:00 07/09/16 09:00 Lasix IVP 40 mg DAILY SARAH Administration Heparin Sodium (Porcine) 5,000 units 07/07/16 10:00 07/09/16 09:01 Heparin SC 5,000 units Q12 SARAH Administration Protocol Hydralazine HCl 10 mg 07/05/16 18:01 07/06/16 23:22 Apresoline IVP 10 mg Q6 PRN Administration Systolic Blood Pressure Ceftriaxone Sodium 100 mls @ 100 mls/hr 07/07/16 10:00 07/09/16 09:03 Rocephin 2 Gm Ivpb IVPB 07/27/16 10:01 100 mls/hr DAILY SARAH Administration Protocol Metoprolol Tartrate 50 mg 07/06/16 18:00 07/09/16 09:00 Lopressor PO 50 mg 0800,1800 SARAH Administration Pantoprazole Sodium 40 mg 07/09/16 06:30 07/09/16 06:18 Protonix Inj IVP 40 mg 0630 SARAH Administration Risperidone 0.5 mg 07/07/16 10:00 07/09/16 09:00 Risperdal Tab PO 0.5 mg DAILY SARAH Administration Protocol Silver Sulfadiazine 0 ea 07/02/16 10:00 07/09/16 09:01 Silvadene 1% 20 Gm TOP 1 applic DAILY SARAH Administration Vitamin A 1 ea 07/07/16 07:41 07/09/16 06:18 Vitamin A & D Oint Ud Foilpak TOP 1 ea BID PRN Administration chapped lips - Patient Studies Lab Studies: Microbiology Studies 07/04/16 16:00 Blood Culture - Preliminary Blood-Venous NO GROWTH AFTER 4 DAYS 07/04/16 15:30 Blood Culture - Preliminary Blood-Venous NO GROWTH AFTER 4 DAYS Lab Studies 07/09/16 07/09/16 07/08/16 Range/Units 05:15 05:00 18:33 WBC 11.6 H D (4.5-11.0) 10^3/ul RBC 3.34 L (3.5-6.1) 10^6/uL Hgb 9.4 L (14.0-18.0) gm/dL Hct 28.5 L (42.0-52.0) % MCV 85.3 (80.0-105.0) fL MCH 28.1 (25.0-35.0) pg MCHC 33.0 (31.0-37.0) g/dl RDW 14.6 H (11.5-14.5) % Plt Count 245 (120.0-450.0) 10^3/uL MPV 9.4 (7.0-11.0) fl pCO2 36 (35-45) mm/Hg pO2 127.0 H (80-100) mm/Hg HCO3 25.6 (21-28) mmol/L ABG pH 7.46 H (7.35-7.45) ABG Total CO2 26.7 (22-28) mmol.L ABG O2 Saturation 99.0 H (95-98) % ABG O2 Content 15.8 (15-23) ML/dl ABG Base Excess 1.9 (-2.0-3.0) mmol/L ABG Hemoglobin 11.5 L (11.7-17.4) g/dL ABG Carboxyhemoglobin 1.7 H (0.5-1.5) % POC ABG HHb (Measured) 1.0 (0-5) % ABG Methemoglobin 0.9 (0.0-3.0) % ABG O2 Capacity 16.0 (16-24) mL/dl Hgb O2 Saturation 96.4 (95.0-98.0) % FiO2 40.0 % Sodium 145 (132-148) mmol/L Potassium 3.8 (3.6-5.0) mmol/L Chloride 109 H (98-107) mmol/L Carbon Dioxide 29 (21-33) mmol/L Anion Gap 11 (10-20) BUN 55 H (7-21) mg/dL Creatinine 1.7 H (0.5-1.4) mg/dL Est GFR ( Amer) 47 Est GFR (Non-Af Amer) 39 Random Glucose 111 H (70-110) mg/dL Calcium 8.9 (8.4-10.5) mg/dL Phosphorus 4.8 H (2.5-4.5) mg/dL Magnesium 1.9 (1.7-2.2) mg/dL Total Bilirubin 0.6 (0.2-1.3) mg/dL AST 60 H (15-59) U/L ALT 62 H (7-56) U/L Alkaline Phosphatase 56 (38-133) U/L Total Protein 5.5 L (5.8-8.3) g/dL Albumin 2.3 L (3.0-4.8) g/dL Globulin 3.2 gm/dL Albumin/Globulin Ratio 0.7 L (1.1-1.8) Procalcitonin 1.23 H (0.19-0.49) NG/ML Laboratory Results - last 24 hr 07/08/16 07/09/16 07/09/16 18:33 05:00 05:15 WBC 11.6 H D RBC 3.34 L Hgb 9.4 L Hct 28.5 L MCV 85.3 MCH 28.1 MCHC 33.0 RDW 14.6 H Plt Count 245 MPV 9.4 pCO2 36 pO2 127.0 H HCO3 25.6 ABG pH 7.46 H ABG Total CO2 26.7 ABG O2 Saturation 99.0 H ABG O2 Content 15.8 ABG Base Excess 1.9 ABG Hemoglobin 11.5 L ABG Carboxyhemoglobin 1.7 H POC ABG HHb (Measured) 1.0 ABG Methemoglobin 0.9 ABG O2 Capacity 16.0 Hgb O2 Saturation 96.4 FiO2 40.0 Sodium 145 Potassium 3.8 Chloride 109 H Carbon Dioxide 29 Anion Gap 11 BUN 55 H Creatinine 1.7 H Est GFR ( Amer) 47 Est GFR (Non-Af Amer) 39 Random Glucose 111 H Calcium 8.9 Phosphorus 4.8 H Magnesium 1.9 Total Bilirubin 0.6 AST 60 H ALT 62 H Alkaline Phosphatase 56 Total Protein 5.5 L Albumin 2.3 L Globulin 3.2 Albumin/Globulin Ratio 0.7 L Procalcitonin 1.23 H Critical Care Progress Note - Nutrition Nutrition: Nutrition Category Date Time Status Liquid Diet [DIET] Diets 07/09/16 Lunch Ordered Addendum Addendum: 07/09/16 12:41 patient was seen, examined and discussed with Dr. Tineo shoulder to shoulder at bedside. Her note reflects my exam, assessment and plan except as below. Meds /Labs/ONE reviewed 80 yo male admitted to ICU with now resolved hypercapnic respiratory failure, likely due to hypoventilation in the setting of BZD PRN for agitation, while on the med/surg walsh. Patient required intubation, but was extubated today and doing well. I would recommend to avoid BZD for agitated delirium and use antipsychotics PRN instead (if not contra-indicated) along with optimization of circadian and sleep patterns (may consider seroquel at bedtime as well), frequent re-orientation in time, place and person, minimizing sleep disruption and optimization pain control (preferrably with non-opiates, as they are also deliriogenic). ccm time 40 min
--- NOTE | 2016-07-09 08:38 | CP.PCM.PN ---
Objective - Vital Signs/Intake and Output Vital Signs (last 24 hours): Temp Pulse Resp BP Pulse Ox 99.9 F H 76 25 H 164/68 H 99 07/09/16 06:00 07/09/16 07:38 07/09/16 07:21 07/09/16 07:00 07/09/16 07:21 Intake and Output: 07/09/16 07/09/16 06:59 18:59 Intake Total 120 Output Total 425 Balance -305 - Medications Medications: Current Medications Acetaminophen (Tylenol 325mg Tab) 650 mg PO Q4 PRN PRN Reason: Fever >100.4 F Last Admin: 06/30/16 09:15 Dose: 650 mg Albuterol/Ipratropium (Duoneb 3 Mg/0.5 Mg (3 Ml) Ud) 3 ml IH [id number] [facility] Last Admin: 07/09/16 07:11 Dose: 3 ml Amlodipine Besylate (Norvasc) 10 mg PO DAILY [facility] Last Admin: 07/08/16 10:07 Dose: Not Given Aspirin (Aspirin) 325 mg PO DAILY [facility] Last Admin: 07/08/16 10:50 Dose: 325 mg Clotrimazole (Lotrimin 1%) 0 gm TOP BID [facility] Last Admin: 07/08/16 18:26 Dose: 1 applic Furosemide (Lasix) 40 mg IVP DAILY [facility] Heparin Sodium (Porcine) (Heparin) 5,000 units SC Q12 SARAH PRN Reason: Protocol Last Admin: 07/08/16 21:07 Dose: 5,000 units Hydralazine HCl (Apresoline) 10 mg IVP Q6 PRN PRN Reason: Systolic Blood Pressure Last Admin: 07/06/16 23:22 Dose: 10 mg Ceftriaxone Sodium (Rocephin 2 Gm Ivpb) 100 mls @ 100 mls/hr IVPB DAILY [facility] PRN Reason: Protocol Stop: 07/27/16 10:01 Last Admin: 07/08/16 11:16 Dose: 100 mls/hr Fentanyl Citrate (Fentanyl Citrate/Sodium Chloride 1 Mg/100 Ml) 100 mls @ 2 mls /hr IV .Q24H PRN; Protocol; 20 MCG/HR PRN Reason: TITRATE PER MD ORDER Last Titration: 07/09/16 07:05 Dose: 0 mcg/hr Metoprolol Tartrate (Lopressor) 50 mg PO 0800,1800 [facility] Last Admin: 07/08/16 18:24 Dose: 50 mg Midazolam HCl (Versed Inj) 2 mg IVP Q4 PRN PRN Reason: Agitation Last Admin: 07/08/16 16:40 Dose: 2 mg Pantoprazole Sodium (Protonix Inj) 40 mg IVP 0630 [facility] Last Admin: 07/09/16 06:18 Dose: 40 mg Risperidone (Risperdal Tab) 0.5 mg PO DAILY [facility] PRN Reason: Protocol Last Admin: 07/08/16 10:07 Dose: Not Given Silver Sulfadiazine (Silvadene 1% 20 Gm) 0 ea TOP DAILY [facility] Last Admin: 07/08/16 10:31 Dose: 1 applic Vitamin A (Vitamin A & D Oint Ud Foilpak) 1 ea TOP BID PRN PRN Reason: chapped lips Last Admin: 07/09/16 06:18 Dose: 1 ea - Labs Labs: 07/09/16 05:15 07/09/16 05:15 PT 12.1 Seconds (9.9-11.8) H 07/02/16 06:15 INR 1.12 (0.93-1.08) H 07/02/16 06:15 APTT 87.8 Seconds (23.7-30.8) H* 07/07/16 06:20
[2016-07-09] MEDS: Clotrimazole 1% Cream(30 gm) TOP SCH ×2 (09:01→17:17)
[2016-07-09] MEDS: Silver Sulfadiazine 1% Cream (20 gm) TOP SCH (09:01)
--- NOTE | 2016-07-09 10:47 | PN ---
DATE: 07/09/2016 The patient was seen and examined at bedside in intensive care unit. He was just extubated, and we a re watching him after extubation. So far, he is doing well, with no significant respiratory distress . Arterial blood gases are pending. He received Ativan yesterday on the floor and was on BiPAP, how ever, very required endotracheal intubation, and transferred back to intensive care unit. PHYSICAL EXAMINATION: Today, his temperature is 99.1, blood pressure 119/78, respiratory rate is currently 22, oxygen satur ation is 95%. EXAMINATION OF HEAD, EARS, NOSE, AND THROAT: Within normal limits. LUNGS: A few rhonchi, no wheezing. CARDIOVASCULAR: Regular rate and rhythm. GASTROINTESTINAL: Abdomen soft, nontender, nondistended. MUSCULOSKELETAL: No peripheral edema. NEUROLOGIC: Limited at present time. SKIN: Moist, no rash. I reviewed his laboratory data His preintubation, arterial blood gas showed minimal CO2 retention of 56, and pO2 of 152. After intubation his pH improved to 738, and pO2 to 93. He was not retaining c arbon bone dioxide. ASSESSMENT AND PLAN: 1. Hypercarbic respiratory failure secondary to sedation. 2. Status post extubation. 3. Congestive heart failure. 4. Chronic obstructive pulmonary disease. PLAN: Today's arterial blood gas shows pH of 7.46, pCO2 of 36, and pO2 of 127 pre-extubation. The r est of the laboratory reveals elevated BUN to 55, elevated creatinine to 1.7, his procalcitonin is sl ightly elevated. His WBCs are 11.6, hemoglobin of 9.4. He is doing well so far after extubation. Will continue following him very closely. 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 Villagran. Rod Hein MD cc: [id number] TT: 07/09/2016 10:47:16 Confirmation # [id number] Dictation # [id number] natasha
--- NOTE | 2016-07-09 12:37 | CP.PCM.PN ---
Subjective - Date & Time of Evaluation Date of Evaluation: 07/09/16 Time of Evaluation: 09:30 - Subjective Subjective: Patient was intubated yesterday but now extubated, sitting up in a chair, not in distress, feels thirsty, no fevers this morning. Objective - Vital Signs/Intake and Output Vital Signs (last 24 hours): Temp Pulse Resp BP Pulse Ox 100 F H 68 25 H 137/46 L 99 07/09/16 00:01 07/09/16 03:20 07/09/16 07:21 07/09/16 03:00 07/09/16 07:21 - Medications Medications: Current Medications Acetaminophen (Tylenol 325mg Tab) 650 mg PO Q4 PRN PRN Reason: Fever >100.4 F Last Admin: 06/30/16 09:15 Dose: 650 mg Albuterol/Ipratropium (Duoneb 3 Mg/0.5 Mg (3 Ml) Ud) 3 ml IH [id number] [facility] Last Admin: 07/09/16 07:11 Dose: 3 ml Amlodipine Besylate (Norvasc) 10 mg PO DAILY [facility] Last Admin: 07/08/16 10:07 Dose: Not Given Aspirin (Aspirin) 325 mg PO DAILY [facility] Last Admin: 07/08/16 10:50 Dose: 325 mg Clotrimazole (Lotrimin 1%) 0 gm TOP BID [facility] Last Admin: 07/08/16 18:26 Dose: 1 applic Furosemide (Lasix) 40 mg IVP DAILY [facility] Heparin Sodium (Porcine) (Heparin) 5,000 units SC Q12 [facility]AH PRN Reason: Protocol Last Admin: 07/08/16 21:07 Dose: 5,000 units Hydralazine HCl (Apresoline) 10 mg IVP Q6 PRN PRN Reason: Systolic Blood Pressure Last Admin: 07/06/16 23:22 Dose: 10 mg Ceftriaxone Sodium (Rocephin 2 Gm Ivpb) 100 mls @ 100 mls/hr IVPB DAILY [facility] PRN Reason: Protocol Stop: 07/27/16 10:01 Last Admin: 07/08/16 11:16 Dose: 100 mls/hr Fentanyl Citrate (Fentanyl Citrate/Sodium Chloride 1 Mg/100 Ml) 100 mls @ 2 mls /hr IV .Q24H PRN; Protocol; 20 MCG/HR PRN Reason: TITRATE PER MD ORDER Last Titration: 07/09/16 07:05 Dose: 0 mcg/hr Metoprolol Tartrate (Lopressor) 50 mg PO 0800,1800 [facility] Last Admin: 07/08/16 18:24 Dose: 50 mg Midazolam HCl (Versed Inj) 2 mg IVP Q4 PRN PRN Reason: Agitation Last Admin: 07/08/16 16:40 Dose: 2 mg Pantoprazole Sodium (Protonix Inj) 40 mg IVP 0630 [facility] Last Admin: 07/09/16 06:18 Dose: 40 mg Risperidone (Risperdal Tab) 0.5 mg PO DAILY [facility] PRN Reason: Protocol Last Admin: 07/08/16 10:07 Dose: Not Given Silver Sulfadiazine (Silvadene 1% 20 Gm) 0 ea TOP DAILY [facility] Last Admin: 07/08/16 10:31 Dose: 1 applic Vitamin A (Vitamin A & D Oint Ud Foilpak) 1 ea TOP BID PRN PRN Reason: chapped lips Last Admin: 07/09/16 06:18 Dose: 1 ea - Labs Labs: 07/09/16 05:15 07/09/16 05:15 PT 12.1 Seconds (9.9-11.8) H 07/02/16 06:15 INR 1.12 (0.93-1.08) H 07/02/16 06:15 APTT 87.8 Seconds (23.7-30.8) H* 07/07/16 06:20 - Constitutional Appears: Non-toxic, No Acute Distress - Head Exam Head Exam: NORMAL INSPECTION - Neck Exam Neck Exam: absent: Lymphadenopathy, Meningismus - Respiratory Exam Respiratory Exam: Decreased Breath Sounds - Cardiovascular Exam Cardiovascular Exam: +S1, +S2 - GI/Abdominal Exam GI & Abdominal Exam: Soft. absent: Tenderness Assessment and Plan - Assessment and Plan (Free Text) Plan: Assessment severe sepsis S/P shock S/P ventilator-dependent respiratory failure with acute on chronic renal failure due to Group G strep bacteremia, probably secondary to bilateral lower extremities skin and skin structure infection; also with MSSA from the wound cultures; so far no evidence of new infection; patient is clinically improving; he was intubated for hypercarbic respiratory failure and congestion, no evidence of pneumonia currently acute rhabdomyolysis consider acute NSTEMI HTN chronic renal failure dementia obesity with BMI 38 Plan continue Rocephin (day 10 from first negative blood cx); repeat septic work up so far negative, PCT is improving; CXR does not show focal infiltrates; reviewed Dr. Mancini's note and discussed today with Dr. Hein; would recommend 28 days of antibiotics 2D echocardiogram does not show vegetations will continue to monitor clinically
--- NOTE | 2016-07-09 12:42 | PN ---
DATE: 07/09/2016 SUBJECTIVE: The patient has been extubated. He is out of bed in a chair, awake, and responsive. Th ere is no shortness of breath, no chest pain. OBJECTIVE: VITAL SIGNS: Blood pressure 119/56, temperature 97.6, pulse 69, respiratory rate 20. LUNGS: Show a few bibasilar crackles. HEART: Regular rate and rhythm. ABDOMEN: Soft, nontender. Bowel sounds are normoactive. EXTREMITIES: Show some dependent and presacral edema. NEUROLOGIC: The patient is awake and responsive, less confused without focal sensory or motor defici ts. SKIN: Warm and dry. LABORATORY DATA: WBC is 11.6, hemoglobin 9.4, hematocrit 28.5. Sodium 145, potassium 3.8, chloride 109, CO2 of 29, BUN 55, creatinine 1.7, glucose 111. IMPRESSION: 1. Status post ventilatory failure. 2. Hypertension, hypertensive cardiovascular disease, and congestive heart failure. 3. Coronary artery disease status post probable non-ST segment elevation myocardial infarction. 4. Status post acute rhabdomyolysis with acute renal failure superimposed on mild chronic kidney dis ease. 5. Dementia with superimposed delirium secondary to underlying metabolic disorder, improving. 6. Immobility secondary to a severe degenerative joint disease and obesity with deconditioning. 7. Anemia, rule out gastrointestinal bleed. PLAN: Continue present care. Would continue IV Lasix. Check troponin and BNP levels. Continue car diology, pulmonary, and infectious disease followup. Physical therapy evaluation and treatment. We will check stool for occult blood. Social work for discharge planning. Leonid Calderón JD, MD cc: [id number] TT: 07/09/2016 12:42:32 Confirmation # [id number] Dictation # [id number] natasha
--- NOTE | 2016-07-09 13:47 | RAD ---
HISTORY: f/u COMPARISON: No prior. FINDINGS: LUNGS: No active pulmonary disease. PLEURA: No significant pleural effusion identified, no pneumothorax apparent. CARDIOVASCULAR: Question small left pleural effusion. OSSEOUS STRUCTURES: No significant abnormalities. VISUALIZED UPPER ABDOMEN: Normal. OTHER FINDINGS: NG tube in stomach. IMPRESSION: Question small left pleural effusion.
[2016-07-10 06:29] LABS: ADD MANUAL DIFF? NO
[2016-07-10 06:35] LABS: BASO # 0.02 K/mm3 (0.0-2.0); BASO % 0.2 % (0.0-3.0); EOS # 0.2 (0.0-0.7); EOS % 1.7 % (1.5-5.0); GRAN # 8.98 (1.4-6.5); GRAN % 82.2 % (50.0-68.0); HEMATOCRIT 31.4 % (42.0-52.0); LYMPH # 1.1 (1.2-3.4); LYMPH % 9.8 % (22.0-35.0); MEAN CELL VOLUME 84.4 fL (80.0-105.0); MEAN CORPUSCULAR HEMOGLOBIN 27.2 pg (25.0-35.0); MEAN CORPUSCULAR HGB CONC 32.2 g/dl (31.0-37.0); MEAN PLATELET VOLUME 9.1 fl (7.0-11.0); MONO # 0.7 (0.1-0.6); MONO % 6.1 % (1.0-6.0); PLATELET COUNT 286 10^3/uL (120.0-450.0); RED CELL DISTRIBUTION WIDTH 14.2 % (11.5-14.5); WHITE BLOOD COUNT 10.9 10^3/ul (4.5-11.0)
[2016-07-10 06:38] LABS: ARTERIAL BLOOD GAS HCO3 27.4 mmol/L (21-28); ARTERIAL BLOOD GAS O2 CAPACITY 15.3 mL/dl (16-24); ARTERIAL BLOOD GAS O2 CONTENT 14.9 ML/dl (15-23); ARTERIAL BLOOD GAS PH 7.49 (7.35-7.45); CARBOXYHEMOGLOBIN 1.7 % (0.5-1.5); HHB 2.6 % (0-5); METHEMOGLOBIN 0.6 % (0.0-3.0)
[2016-07-10 06:46] LABS: ALB/GLOB RATIO 0.7 (1.1-1.8); ALKALINE PHOSPHATASE 59 U/L (38-133); ALT/SGPT 57 U/L (7-56); AST/SGOT 55 U/L (15-59); BILIRUBIN,TOTAL 0.7 mg/dL (0.2-1.3); BLOOD UREA NITROGEN 46 mg/dL (7-21); CALCIUM 8.9 mg/dL (8.4-10.5); CARBON DIOXIDE 28 mmol/L (21-33); CHLORIDE 107 mmol/L (98-107); GFR AFRICAN-AMERICAN > 60; GLUCOSE,RANDOM 124 mg/dL (70-110); MAGNESIUM 1.8 mg/dL (1.7-2.2); PHOSPHOROUS 3.9 mg/dL (2.5-4.5); POTASSIUM 3.7 mmol/L (3.6-5.0); SODIUM 141 mmol/L (132-148); TOTAL PROTEIN 6.1 g/dL (5.8-8.3)
--- NOTE | 2016-07-10 07:12 | CP.CCUPN ---
<Pippa Tineo - Last Filed: 07/10/16 09:53> CCU Subjective - Physician Review Events Since Last Encounter (Free Text): 07/10/16 07:11 Patient seen and examined bedside. No acute events overnight. Patient comfortable on NC. Denies CP, SOB, abd pain, n/d, fevers, chills. INEZ resolved. Troponins continue to trend down. Critical Care Time Spent (in minutes): 30 CCU Objective - Vital Signs / Intake & Output Vital Signs (Last 4 hours): Vital Signs Temp Pulse Resp BP Pulse Ox 07/10/16 04:14 71 23 180/66 H 95 07/10/16 04:00 97.7 F 71 27 H 97 Intake and Output (Last 8hrs): Intake & Output 07/09/16 07/10/16 07/10/16 22:59 06:59 14:59 Intake Total 2946 600 Output Total 1900 200 Balance 1046 400 Weight 258 lb Intake: IV 100 100 Antibiotic 100 100 Oral 2846 500 Tube Feeding 0 TPN/PPN 0 Blood Product 0 Lipid 0 Albumin 0 Other 0 Output: Urine 1900 200 Urine, Voided 200 Urethral (Jc) 1900 Stool 0 Oral Regurgitation 0 Other: # Voids Urine, Voided 3 # Bowel Movements 0 - Physical Exam Head: Positive for: Atraumatic, Normocephalic. Negative for: Abrasion, Laceration Pupils: Positive for: PERRL Extroacular Muscles: Positive for: EOMI. Negative for: Entrapment Conjunctiva: Positive for: Normal. Negative for: Injected Mouth: Positive for: Dry, Normal Teeth (poor dentition) Respiratory/Chest: Positive for: Clear to Auscultation, Good Air Exchange. Negative for: Respiratory Distress, Accessory Muscle Use, Rales, Tachypneic Cardiovascular: Positive for: Regular Rate and Rhythm, Normal S1, S2. Negative for: Murmurs Abdomen: Positive for: Normal Bowel Sounds. Negative for: Tenderness, Distention, Peritoneal Signs Upper Extremity: Positive for: Normal Inspection, NORMAL PULSES, Neurovascularly Intact. Negative for: Cyanosis, Edema Lower Extremity: Positive for: Normal Inspection, Tenderness, Neurovascularly Intact, Other (abrasion right wright, chronic venous stasis changes foot and ankle B/L). Negative for: Edema, NORMAL PULSES (diminished PT and DP pulse B/L) , Swelling, Deformity Neurological: Positive for: GCS=15, CN II-XII Intact Skin: Positive for: Warm, Dry, Abrasion Psychiatric: Positive for: Alert, Oriented x 3, Normal Insight, Normal Concentration - Medications Active Medications: Active Medications Generic Name Dose Route Start Last Admin Trade Name Freq PRN Reason Stop Dose Admin Acetaminophen 650 mg 06/29/16 11:33 06/30/16 09:15 Tylenol 325mg Tab PO 650 mg Q4 PRN Administration Fever >100.4 F Albuterol/Ipratropium 3 ml 07/05/16 08:00 07/09/16 20:36 Duoneb 3 Mg/0.5 Mg (3 Ml) Ud IH 3 ml [id number] SARAH Administration Amlodipine Besylate 10 mg 07/06/16 10:00 07/09/16 09:00 Norvasc PO 10 mg DAILY SARAH Administration Aspirin 325 mg 07/02/16 10:00 07/09/16 08:59 Aspirin PO 325 mg DAILY SARAH Administration Clotrimazole 0 gm 06/29/16 18:00 07/09/16 17:17 Lotrimin 1% TOP 1 applic BID SARAH Administration Furosemide 40 mg 07/09/16 10:00 07/09/16 09:00 Lasix IVP 40 mg DAILY SARAH Administration Heparin Sodium (Porcine) 5,000 units 07/07/16 10:00 07/09/16 21:27 Heparin SC 5,000 units Q12 SARAH Administration Protocol Hydralazine HCl 10 mg 07/05/16 18:01 07/10/16 05:27 Apresoline IVP 10 mg Q6 PRN Administration Systolic Blood Pressure Ceftriaxone Sodium 100 mls @ 100 mls/hr 07/07/16 10:00 07/09/16 09:03 Rocephin 2 Gm Ivpb IVPB 07/27/16 10:01 100 mls/hr DAILY SARAH Administration Protocol Metoprolol Tartrate 50 mg 07/06/16 18:00 07/09/16 17:17 Lopressor PO 50 mg 0800,1800 SARAH Administration Pantoprazole Sodium 40 mg 07/09/16 06:30 07/10/16 05:30 Protonix Inj IVP 40 mg 0630 SARAH Administration Risperidone 0.5 mg 07/07/16 10:00 07/09/16 09:00 Risperdal Tab PO 0.5 mg DAILY SARAH Administration Protocol Silver Sulfadiazine 0 ea 07/02/16 10:00 07/09/16 09:01 Silvadene 1% 20 Gm TOP 1 applic DAILY SARAH Administration Vitamin A 1 ea 07/07/16 07:41 07/09/16 06:18 Vitamin A & D Oint Ud Foilpak TOP 1 ea BID PRN Administration chapped lips - Patient Studies Lab Studies: Microbiology Studies 07/08/16 18:33 Blood Culture - Preliminary Blood NO GROWTH AFTER 24 HOURS 07/04/16 16:00 Blood Culture - Final Blood-Venous NO GROWTH AFTER 5 DAYS Gram Stain - Final TEST NOT PERFORMED 07/04/16 15:30 Blood Culture - Final Blood-Venous NO GROWTH AFTER 5 DAYS Gram Stain - Final TEST NOT PERFORMED Lab Studies 07/10/16 07/10/16 07/09/16 Range/Units 06:35 06:00 06:30 WBC 10.9 (4.5-11.0) 10^3/ul RBC 3.72 (3.5-6.1) 10^6/uL Hgb 10.1 L (14.0-18.0) gm/dL Hct 31.4 L (42.0-52.0) % MCV 84.4 (80.0-105.0) fL MCH 27.2 (25.0-35.0) pg MCHC 32.2 (31.0-37.0) g/dl RDW 14.2 (11.5-14.5) % Plt Count 286 (120.0-450.0) 10^3/uL MPV 9.1 (7.0-11.0) fl Gran % 82.2 H (50.0-68.0) % Lymph % (Auto) 9.8 L (22.0-35.0) % Bremer % (Auto) 6.1 H (1.0-6.0) % Eos % (Auto) 1.7 (1.5-5.0) % Baso % (Auto) 0.2 (0.0-3.0) % Gran # 8.98 H (1.4-6.5) Lymph # 1.1 L (1.2-3.4) Bremer # 0.7 H (0.1-0.6) Eos # 0.2 (0.0-0.7) Baso # 0.02 (0.0-2.0) K/mm3 pCO2 36 (35-45) mm/Hg pO2 78.0 L (80-100) mm/Hg HCO3 27.4 (21-28) mmol/L ABG pH 7.49 H (7.35-7.45) ABG Total CO2 28.5 H (22-28) mmol.L ABG O2 Saturation 97.3 (95-98) % ABG O2 Content 14.9 L (15-23) ML/dl ABG Base Excess 4.0 H (-2.0-3.0) mmol/L ABG Hemoglobin 11.1 L (11.7-17.4) g/dL ABG Carboxyhemoglobin 1.7 H (0.5-1.5) % POC ABG HHb (Measured) 2.6 (0-5) % ABG Methemoglobin 0.6 (0.0-3.0) % ABG O2 Capacity 15.3 L (16-24) mL/dl Hgb O2 Saturation 95.0 (95.0-98.0) % FiO2 32.0 % Sodium 141 (132-148) mmol/L Potassium 3.7 (3.6-5.0) mmol/L Chloride 107 (98-107) mmol/L Carbon Dioxide 28 (21-33) mmol/L Anion Gap 10 (10-20) BUN 46 H (7-21) mg/dL Creatinine 1.2 (0.5-1.4) mg/dL Est GFR ( Amer) > 60 Est GFR (Non-Af Amer) 58 Random Glucose 124 H (70-110) mg/dL Calcium 8.9 (8.4-10.5) mg/dL Phosphorus 3.9 (2.5-4.5) mg/dL Magnesium 1.8 (1.7-2.2) mg/dL Total Bilirubin 0.7 (0.2-1.3) mg/dL AST 55 (15-59) U/L ALT 57 H (7-56) U/L Alkaline Phosphatase 59 (38-133) U/L NT-Pro-B Natriuret Pep 7200 H (0-450) pg/mL Total Protein 6.1 (5.8-8.3) g/dL Albumin 2.6 L (3.0-4.8) g/dL Globulin 3.5 gm/dL Albumin/Globulin Ratio 0.7 L (1.1-1.8) Procalcitonin (0.19-0.49) NG/ML 07/09/16 Range/Units 05:15 WBC (4.5-11.0) 10^3/ul RBC (3.5-6.1) 10^6/uL Hgb (14.0-18.0) gm/dL Hct (42.0-52.0) % MCV (80.0-105.0) fL MCH (25.0-35.0) pg MCHC (31.0-37.0) g/dl RDW (11.5-14.5) % Plt Count (120.0-450.0) 10^3/uL MPV (7.0-11.0) fl Gran % (50.0-68.0) % Lymph % (Auto) (22.0-35.0) % Bremer % (Auto) (1.0-6.0) % Eos % (Auto) (1.5-5.0) % Baso % (Auto) (0.0-3.0) % Gran # (1.4-6.5) Lymph # (1.2-3.4) Bremer # (0.1-0.6) Eos # (0.0-0.7) Baso # (0.0-2.0) K/mm3 pCO2 (35-45) mm/Hg pO2 (80-100) mm/Hg HCO3 (21-28) mmol/L ABG pH (7.35-7.45) ABG Total CO2 (22-28) mmol.L ABG O2 Saturation (95-98) % ABG O2 Content (15-23) ML/dl ABG Base Excess (-2.0-3.0) mmol/L ABG Hemoglobin (11.7-17.4) g/dL ABG Carboxyhemoglobin (0.5-1.5) % POC ABG HHb (Measured) (0-5) % ABG Methemoglobin (0.0-3.0) % ABG O2 Capacity (16-24) mL/dl Hgb O2 Saturation (95.0-98.0) % FiO2 % Sodium (132-148) mmol/L Potassium (3.6-5.0) mmol/L Chloride (98-107) mmol/L Carbon Dioxide (21-33) mmol/L Anion Gap (10-20) BUN (7-21) mg/dL Creatinine (0.5-1.4) mg/dL Est GFR ( Amer) Est GFR (Non-Af Amer) Random Glucose (70-110) mg/dL Calcium (8.4-10.5) mg/dL Phosphorus (2.5-4.5) mg/dL Magnesium (1.7-2.2) mg/dL Total Bilirubin (0.2-1.3) mg/dL AST (15-59) U/L ALT (7-56) U/L Alkaline Phosphatase (38-133) U/L NT-Pro-B Natriuret Pep (0-450) pg/mL Total Protein (5.8-8.3) g/dL Albumin (3.0-4.8) g/dL Globulin gm/dL Albumin/Globulin Ratio (1.1-1.8) Procalcitonin 1.15 H (0.19-0.49) NG/ML Laboratory Results - last 24 hr 07/09/16 07/09/16 07/10/16 05:15 06:30 06:00 WBC 10.9 RBC 3.72 Hgb 10.1 L Hct 31.4 L MCV 84.4 MCH 27.2 MCHC 32.2 RDW 14.2 Plt Count 286 MPV 9.1 Gran % 82.2 H Lymph % (Auto) 9.8 L Bremer % (Auto) 6.1 H Eos % (Auto) 1.7 Baso % (Auto) 0.2 Gran # 8.98 H Lymph # 1.1 L Bremer # 0.7 H Eos # 0.2 Baso # 0.02 pCO2 pO2 HCO3 ABG pH ABG Total CO2 ABG O2 Saturation ABG O2 Content ABG Base Excess ABG Hemoglobin ABG Carboxyhemoglobin POC ABG HHb (Measured) ABG Methemoglobin ABG O2 Capacity Hgb O2 Saturation FiO2 Sodium 141 Potassium 3.7 Chloride 107 Carbon Dioxide 28 Anion Gap 10 BUN 46 H Creatinine 1.2 Est GFR ( Amer) > 60 Est GFR (Non-Af Amer) 58 Random Glucose 124 H Calcium 8.9 Phosphorus 3.9 Magnesium 1.8 Total Bilirubin 0.7 AST 55 ALT 57 H Alkaline Phosphatase 59 NT-Pro-B Natriuret Pep 7200 H Total Protein 6.1 Albumin 2.6 L Globulin 3.5 Albumin/Globulin Ratio 0.7 L Procalcitonin 1.15 H 07/10/16 06:35 WBC RBC Hgb Hct MCV MCH MCHC RDW Plt Count MPV Gran % Lymph % (Auto) Bremer % (Auto) Eos % (Auto) Baso % (Auto) Gran # Lymph # Bremer # Eos # Baso # pCO2 36 pO2 78.0 L HCO3 27.4 ABG pH 7.49 H ABG Total CO2 28.5 H ABG O2 Saturation 97.3 ABG O2 Content 14.9 L ABG Base Excess 4.0 H ABG Hemoglobin 11.1 L ABG Carboxyhemoglobin 1.7 H POC ABG HHb (Measured) 2.6 ABG Methemoglobin 0.6 ABG O2 Capacity 15.3 L Hgb O2 Saturation 95.0 FiO2 32.0 Sodium Potassium Chloride Carbon Dioxide Anion Gap BUN Creatinine Est GFR ( Amer) Est GFR (Non-Af Amer) Random Glucose Calcium Phosphorus Magnesium Total Bilirubin AST ALT Alkaline Phosphatase NT-Pro-B Natriuret Pep Total Protein Albumin Globulin Albumin/Globulin Ratio Procalcitonin Review of Systems - Constitutional Constitutional: absent: Fever, Chills - EENT Eyes: absent: Change in Vision Ears: absent: Dizziness - Cardiovascular Cardiovascular: absent: Chest Pain, Diaphoresis, Dyspnea, Palpitations - Respiratory Respiratory: absent: Cough, Dyspnea - Gastrointestinal Gastrointestinal: absent: Abdominal Pain, Diarrhea, Nausea, Vomiting - Genitourinary Genitourinary: absent: Dysuria - Neurological Neurological: absent: Dizziness Critical Care Progress Note - Ventilator Checklist PUD Prophalyxis: Yes DVT Prophylaxis: Yes - Prophylaxis GI Prophylaxis GI: PPI - Prophylaxis DVT Prophylaxis DVT: Heparin SQ - Nutrition Nutrition: Nutrition Category Date Time Status Liquid Diet [DIET] Diets 07/09/16 Lunch Ordered Assessment/Plan - Assessment and Plan (Free Text) Assessment: 80 yo M w h/o HTN, COPD, obesity, dementia initially admitted to [facility] with Group G strep bacteremia, L foot MSSA infectionnow resolved initially transferred to ICU s/p [employer] due to multifactorial hypoxic, hypercarbic RF exacerbated by Benzo administration, requiring intubation and subsequently extubated x2 Plan: Neuro: AAOx3, NAD, s/p successful extubation this AM. Good cough, gag reflex, protecting airway Maintain normothermia Patient has ATIVAN ALLERGY that has resulted in acute respiratory failure twice requiring intubation Would avoid benzos for hyperactive delirium, rec PRN antipsychotics if not contraindicated, optimization of circadian and sleep patterns (may consider seroquel at bedtime as well), frequent re-orientation in time, place and person , minimizing sleep disruption and optimization pain control (preferrably with non-opiates, as they are also deliriogenic) Currently on Risperidone Pulm: s/p hypercarbic RF 2/2 Ativan with hypoventilation, patient was difficult to arouse, GCS worrisome for protecting airway requiring intubation x2 ABG reviewed - resp acidosis resolved Duonebs Q6hr Tolerating 3L NC. Titrate to maintain spo2>90, pao2>60 Aspiration precautions. HOB >35 CV: HD stable. Continue to monitor, maintain MAP >65 Troponin down to 0.58 from 5.25. EKG shows T wave inversions leads V2-V5, II , III, aVF, no new changes. Patient and family deny h/o previous NM or stening. Management as per cardiology Continue cardiac meds as per cardio service, monitor hemodynamics, adjust meds as needed Resume lasix as per cardio GI: GI ppx Renal: INEZ resolved Continue to monitor renal function and I&Os Acute rhabdomyolysis on admission improving Endo: No acute issues. Maintain euglycemia 140-180 ID: Leukocytosis resolved. Low-grade temps resolved. Has been afebrile over past 24 hours Continue Rocephin to finish Group G Strep bacteremia therapy. Procalcitonin trending down 1.23 from 7.36, from 31.55 at admission. Repeat Blood cultures have been negative thus far since 06/30 Heme: Hb stable. No signs of bleeding. DVT/GI ppx: SQH, PT, protonix, HHD Dispo: Transfer to telemetry - Date & Time Date: 07/10/16 Time: 07:37 <Loco Villagran - Last Filed: 07/10/16 18:59> CCU Objective - Vital Signs / Intake & Output Vital Signs (Last 4 hours): Vital Signs Pulse BP 07/10/16 18:00 75 07/10/16 17:54 68 151/57 H Intake and Output (Last 8hrs): Intake & Output 07/10/16 07/10/16 07/10/16 06:59 14:59 22:59 Intake Total 600 460 Output Total 200 100 Balance 400 360 Weight 258 lb 258 lb 14.4 oz Intake: IV 100 100 Left Upper arm 100 Antibiotic 100 Oral 500 360 Tube Feeding 0 TPN/PPN 0 Blood Product 0 Lipid 0 Albumin 0 Other 0 Output: Urine 200 100 Urine, Voided 200 100 Stool 0 Oral Regurgitation 0 Other: Voiding Method Urinal # Voids Urine, Voided 3 3 # Bowel Movements 0 0 - Medications Active Medications: Active Medications Generic Name Dose Route Start Last Admin Trade Name Freq PRN Reason Stop Dose Admin Acetaminophen 650 mg 06/29/16 11:33 06/30/16 09:15 Tylenol 325mg Tab PO 650 mg Q4 PRN Administration Fever >100.4 F Albuterol/Ipratropium 3 ml 07/05/16 08:00 07/10/16 13:18 Duoneb 3 Mg/0.5 Mg (3 Ml) Ud IH 3 ml [id number] SARAH Administration Amlodipine Besylate 10 mg 07/06/16 10:00 07/10/16 09:56 Norvasc PO 10 mg DAILY SARAH Administration Aspirin 325 mg 07/02/16 10:00 07/10/16 09:56 Aspirin PO 325 mg DAILY SARAH Administration Clotrimazole 0 gm 06/29/16 18:00 07/10/16 17:54 Lotrimin 1% TOP 1 applic BID SARAH Administration Furosemide 40 mg 07/09/16 10:00 07/09/16 09:00 Lasix IVP 40 mg DAILY SARAH Administration Heparin Sodium (Porcine) 5,000 units 07/07/16 10:00 07/10/16 09:57 Heparin SC 5,000 units Q12 SARAH Administration Protocol Hydralazine HCl 10 mg 07/05/16 18:01 07/10/16 09:56 Apresoline IVP 10 mg Q6 PRN Administration Systolic Blood Pressure Ceftriaxone Sodium 100 mls @ 100 mls/hr 07/07/16 10:00 07/10/16 09:59 Rocephin 2 Gm Ivpb IVPB 07/27/16 10:01 100 mls/hr DAILY SARAH Administration Protocol Metoprolol Tartrate 50 mg 07/06/16 18:00 07/10/16 17:54 Lopressor PO 50 mg 0800,1800 SARAH Administration Pantoprazole Sodium 40 mg 07/09/16 06:30 07/10/16 05:30 Protonix Inj IVP 40 mg 0630 SARAH Administration Risperidone 0.5 mg 07/07/16 10:00 07/10/16 09:57 Risperdal Tab PO 0.5 mg DAILY SARAH Administration Protocol Silver Sulfadiazine 0 ea 07/02/16 10:00 07/10/16 10:25 Silvadene 1% 20 Gm TOP 1 applic DAILY SARAH Administration Vitamin A 1 ea 07/07/16 07:41 07/10/16 09:56 Vitamin A & D Oint Ud Foilpak TOP 1 ea BID PRN Administration chapped lips - Patient Studies Lab Studies: Microbiology Studies 07/08/16 18:33 Blood Culture - Preliminary Blood NO GROWTH AFTER 48 HOURS 07/04/16 16:00 Blood Culture - Final Blood-Venous NO GROWTH AFTER 5 DAYS Gram Stain - Final TEST NOT PERFORMED 07/04/16 15:30 Blood Culture - Final Blood-Venous NO GROWTH AFTER 5 DAYS Gram Stain - Final TEST NOT PERFORMED Lab Studies 07/10/16 07/10/16 Range/Units 06:35 06:00 WBC 10.9 (4.5-11.0) 10^3/ul RBC 3.72 (3.5-6.1) 10^6/uL Hgb 10.1 L (14.0-18.0) gm/dL Hct 31.4 L (42.0-52.0) % MCV 84.4 (80.0-105.0) fL MCH 27.2 (25.0-35.0) pg MCHC 32.2 (31.0-37.0) g/dl RDW 14.2 (11.5-14.5) % Plt Count 286 (120.0-450.0) 10^3/uL MPV 9.1 (7.0-11.0) fl Gran % 82.2 H (50.0-68.0) % Lymph % (Auto) 9.8 L (22.0-35.0) % Bremer % (Auto) 6.1 H (1.0-6.0) % Eos % (Auto) 1.7 (1.5-5.0) % Baso % (Auto) 0.2 (0.0-3.0) % Gran # 8.98 H (1.4-6.5) Lymph # 1.1 L (1.2-3.4) Bremer # 0.7 H (0.1-0.6) Eos # 0.2 (0.0-0.7) Baso # 0.02 (0.0-2.0) K/mm3 pCO2 36 (35-45) mm/Hg pO2 78.0 L (80-100) mm/Hg HCO3 27.4 (21-28) mmol/L ABG pH 7.49 H (7.35-7.45) ABG Total CO2 28.5 H (22-28) mmol.L ABG O2 Saturation 97.3 (95-98) % ABG O2 Content 14.9 L (15-23) ML/dl ABG Base Excess 4.0 H (-2.0-3.0) mmol/L ABG Hemoglobin 11.1 L (11.7-17.4) g/dL ABG Carboxyhemoglobin 1.7 H (0.5-1.5) % POC ABG HHb (Measured) 2.6 (0-5) % ABG Methemoglobin 0.6 (0.0-3.0) % ABG O2 Capacity 15.3 L (16-24) mL/dl Hgb O2 Saturation 95.0 (95.0-98.0) % FiO2 32.0 % Sodium 141 (132-148) mmol/L Potassium 3.7 (3.6-5.0) mmol/L Chloride 107 (98-107) mmol/L Carbon Dioxide 28 (21-33) mmol/L Anion Gap 10 (10-20) BUN 46 H (7-21) mg/dL Creatinine 1.2 (0.5-1.4) mg/dL Est GFR ( Amer) > 60 Est GFR (Non-Af Amer) 58 Random Glucose 124 H (70-110) mg/dL Calcium 8.9 (8.4-10.5) mg/dL Phosphorus 3.9 (2.5-4.5) mg/dL Magnesium 1.8 (1.7-2.2) mg/dL Total Bilirubin 0.7 (0.2-1.3) mg/dL AST 55 (15-59) U/L ALT 57 H (7-56) U/L Alkaline Phosphatase 59 (38-133) U/L Troponin I 0.58 H* D ng/mL Total Protein 6.1 (5.8-8.3) g/dL Albumin 2.6 L (3.0-4.8) g/dL Globulin 3.5 gm/dL Albumin/Globulin Ratio 0.7 L (1.1-1.8) Laboratory Results - last 24 hr 07/10/16 07/10/16 06:00 06:35 WBC 10.9 RBC 3.72 Hgb 10.1 L Hct 31.4 L MCV 84.4 MCH 27.2 MCHC 32.2 RDW 14.2 Plt Count 286 MPV 9.1 Gran % 82.2 H Lymph % (Auto) 9.8 L Bremer % (Auto) 6.1 H Eos % (Auto) 1.7 Baso % (Auto) 0.2 Gran # 8.98 H Lymph # 1.1 L Bremer # 0.7 H Eos # 0.2 Baso # 0.02 pCO2 36 pO2 78.0 L HCO3 27.4 ABG pH 7.49 H ABG Total CO2 28.5 H ABG O2 Saturation 97.3 ABG O2 Content 14.9 L ABG Base Excess 4.0 H ABG Hemoglobin 11.1 L ABG Carboxyhemoglobin 1.7 H POC ABG HHb (Measured) 2.6 ABG Methemoglobin 0.6 ABG O2 Capacity 15.3 L Hgb O2 Saturation 95.0 FiO2 32.0 Sodium 141 Potassium 3.7 Chloride 107 Carbon Dioxide 28 Anion Gap 10 BUN 46 H Creatinine 1.2 Est GFR ( Amer) > 60 Est GFR (Non-Af Amer) 58 Random Glucose 124 H Calcium 8.9 Phosphorus 3.9 Magnesium 1.8 Total Bilirubin 0.7 AST 55 ALT 57 H Alkaline Phosphatase 59 Troponin I 0.58 H* D Total Protein 6.1 Albumin 2.6 L Globulin 3.5 Albumin/Globulin Ratio 0.7 L Critical Care Progress Note - Nutrition Nutrition: Nutrition Category Date Time Status Heart Healthy Diet [DIET] Diets 07/10/16 Breakfast Ordered Addendum Addendum: 07/10/16 18:57 patient was seen, examined and discussed shoulder to shoulder at bedside with Dr. Tineo. Her note reflects my exam, assessment and plan, except as below. Meds/Labs/ONE reviewed 80 yo with resolved HCRF. Hemodynamically and respiratory stable. Particiapte in PT, OOb to chair. +Oral nutrition. Ok to downgrade to tele ccm time 40 min
[2016-07-10] MEDS: Albuterol-Ipratrop 3 mg / 0.5 (3 ml) UD IH SCH ×3 (07:20→21:24)
[2016-07-10 07:29] LABS: TROPONIN I 0.58 ng/mL
--- NOTE | 2016-07-10 09:35 | RAD ---
PROCEDURE: CHEST RADIOGRAPH, 1 VIEW HISTORY: f/u COMPARISON: None available. FINDINGS: LUNGS: Clear. PLEURA: No pneumothorax or pleural fluid seen. CARDIOVASCULAR: Normal. OSSEOUS STRUCTURES: No significant abnormalities. VISUALIZED UPPER ABDOMEN: Normal. OTHER FINDINGS: Left PICC line in place. IMPRESSION: No active disease.
[2016-07-10] MEDS: Vitamins A & D Oint UD Foilpak TOP PRN (09:56)
--- NOTE | 2016-07-10 10:03 | PN ---
DATE: 07/10/2016 The patient is seen earlier this morning in the ICU 129, bed 6. The patient is in bed, awake, alert. He is now extubated. He is comfortable. There have been no fevers and no chills. PHYSICAL EXAMINATION: VITAL SIGNS: The patient's temperature is 97 and he has been afebrile all night with a blood pressur e of 159/50, respiratory rate of 23, heart rate of 97. HEENT: Unremarkable. NECK: Supple. LUNGS: Have decreased breath sounds. HEART: Normal S1, S2. ABDOMEN: Soft, nontender. LABORATORY EXAMINATION: Reveals the white count is 10.9, hemoglobin of 10, platelets of 286. BUN of 46, creatinine of 1.2. Troponin is 0.58. The BNP is 7200. The patient's procalcitonin is 1.15 yes terday. Microbiology reveals all the cultures are negative, except for the initial blood cultures we re group G strep. Currently, medications include the patient to be on ceftriaxone 2 grams daily. ASSESSMENT AND PLAN: An 80-year-old male with severe sepsis, status post shock and status post venti latory dependent respiratory failure, acute on chronic renal failure with group G Strep bacteremia, p robably secondary to lower extremity skin and skin soft tissue infection. Also with methicillin sens itive Staphylococcus aureus from the wound culture and now legs have improved with acute rhabdomyolys is and acute non-ST elevation myocardial infarction with hypertension on top of acute on chronic jhoan l failure and dementia and obesity with a body mass index of 38. Now, on ceftriaxone day #11. Would complete 28 days with a CBC, SMA-18, sed rate, C-reactive protein once weekly. The patient did have an echo, which showed no vegetations. That is the second echo. The patient had an echo on the and another echo on 07/05, read by Dr. Boggs. There is tricuspid valve thickening, opens well, no veg etations are noted. We will follow closely with you. Wally Wylie MD cc: [id number] TT: 07/10/2016 10:03:18 Confirmation # [id number] Dictation # [id number] en
[2016-07-10] MEDS: Clotrimazole 1% Cream(30 gm) TOP SCH ×2 (10:25→17:54)
[2016-07-10] MEDS: Silver Sulfadiazine 1% Cream (20 gm) TOP SCH (10:25)
--- NOTE | 2016-07-10 11:37 | PN ---
DATE: 07/10/2016 The patient was seen and examined in the ICU. He is markedly improved, even compared to yesterday. He is not in any respiratory distress. Currently, he is on nasal cannula with oxygen saturation of 9 5%. PHYSICAL EXAMINATION: VITAL SIGNS: His temperature is 98.4, pulse 84, respirations 20, blood pressure is 117/78. HEAD: Normocephalic and atraumatic. NECK: Supple with 1+ jugular vein distention. CHEST: Symmetrical. HEART: S1, S2. No S3. Regular. LUNGS: Diminished breath sounds at both bases with few rhonchi, no wheezing. GASTROINTESTINAL: Soft, nontender with no organomegaly. EXTREMITIES: 1+ pedal edema. SKIN: Clear with no skin rashes, no cyanosis. NEUROLOGIC: No focal deficits. I reviewed today's chest x-ray, which reveals a left PICC line in place, clear lungs, no signs of con gestive heart failure and no infiltrates. ASSESSMENT: The patient continues to improve. He is status post hypercarbic respiratory failure sec ondary to sedation, he is status post intubation x 2, congestive heart failure is present, non-ST jose eduardo vation myocardial infarction is one of the problems on current admission and chronic obstructive pulm onary disease, which has improved. PLAN: The patient's condition continues to improve. The plan is to transfer him to telemetry today. I would avoid any form of sedation because patient suffered hypercarbic respiratory failure seconda ry to sedation. He is exceedingly sensitive to sedation and narcotic analgesics. Today's arterial b lood gas shows pH of 7.49, pCO2 of 36 and pO2 of 78, which is completely normal, so this is very good progress. We will continue with same intervention. Rod Hein MD cc: [id number] TT: 07/10/2016 11:37:14 Confirmation # [id number] Dictation # [id number] en
--- NOTE | 2016-07-10 14:42 | PN ---
DATE: 07/10/2016 SUBJECTIVE: The patient is lying in bed, in no acute distress. He has been transferred to the [facility] unit from the intensive care unit. He is awake and responsive. There is no shortness of breath or complaints of chest pain. OBJECTIVE: VITAL SIGNS: Blood pressure 142/48, temperature 98.6, pulse 70, respiratory rate 30. LUNGS: Show bibasilar rales. HEART: Regular rate and rhythm. Hepatojugular reflux is present. ABDOMEN: Soft, nontender, bowel sounds are normoactive. EXTREMITIES: Show dependent and presacral edema. NEUROLOGIC: The patient is awake and responsive, less confused than previous without sensory or sharon r deficits. SKIN: Warm and dry. LABORATORY DATA: WBCs 10.9, hemoglobin 10.1, hematocrit 31.4. Sodium 141, potassium 3.7, chloride 1 07, CO2 28, BUN 10, creatinine 1.2, glucose 124. BNP is elevated at 7200. Troponin 0.58. IMPRESSION: 1. Hypertension, hypertensive cardiovascular disease and congestive heart failure. 2. Coronary artery disease, status post probable non-ST segment elevation myocardial infarction. 3. Status post acute rhabdomyolysis with acute renal failure superimposed on mild chronic kidney dis ease. 4. Status post sepsis, presumed secondary to cellulitis of the lower extremities with chronic venous stasis ulcers. 5. Dementia with mild superimposed delirium, secondary to underlying metabolic disorder. 6. Immobility, secondary to severe degenerative joint disease and obesity with deconditioning. PLAN: Continue diuresis with IV Lasix. Continue cardiology, infectious disease and pulmonary follow up. Physical therapy evaluation and treatment. Social work for discharge planning. Leonid Calderón JD, MD cc: [id number] TT: 07/10/2016 14:41:29 Confirmation # [id number] Dictation # [id number] en
[2016-07-11] MEDS ORDERED: DiphenhydrAMINE 50 mg/ml Inj IVP STA (00:39)
--- NOTE | 2016-07-11 00:41 | CP.PCM.PN ---
Subjective - Date & Time of Evaluation Date of Evaluation: 07/11/16 Time of Evaluation: 00:37 - Subjective Subjective: Patient was seen at bedside. Trying to get out of bed.Restless. Has no complaints. States that he is in [place] in his own building. Medical record was reviewed. This 80 year old white male was admitted with right knee pain, sepsis, INEZ. Has PMH of dementia, HTN, nephrolithiasis, hearing imipairment, cataract, obesity. FSBS:131 mg %. Pulse ox 96% on 3L/min. Objective - Vital Signs/Intake and Output Vital Signs (last 24 hours): Temp Pulse Resp BP Pulse Ox 98.7 F 71 16 162/58 H 98 07/10/16 18:00 07/10/16 18:00 07/10/16 18:00 07/10/16 18:00 07/10/16 18:00 Intake and Output: 07/10/16 07/11/16 18:59 06:59 Intake Total 460 Output Total 100 Balance 360 - Medications Medications: Current Medications Acetaminophen (Tylenol 325mg Tab) 650 mg PO Q4 PRN PRN Reason: Fever >100.4 F Last Admin: 06/30/16 09:15 Dose: 650 mg Albuterol/Ipratropium (Duoneb 3 Mg/0.5 Mg (3 Ml) Ud) 3 ml IH [id number] [facility] Last Admin: 07/10/16 21:24 Dose: 3 ml Amlodipine Besylate (Norvasc) 10 mg PO DAILY [facility] Last Admin: 07/10/16 09:56 Dose: 10 mg Aspirin (Aspirin) 325 mg PO DAILY [facility] Last Admin: 07/10/16 09:56 Dose: 325 mg Clotrimazole (Lotrimin 1%) 0 gm TOP BID [facility] Last Admin: 07/10/16 17:54 Dose: 1 applic Furosemide (Lasix) 40 mg IVP DAILY [facility] Last Admin: 07/09/16 09:00 Dose: 40 mg Heparin Sodium (Porcine) (Heparin) 5,000 units SC Q12 SARAH PRN Reason: Protocol Last Admin: 07/10/16 22:57 Dose: Not Given Hydralazine HCl (Apresoline) 10 mg IVP Q6 PRN PRN Reason: Systolic Blood Pressure Last Admin: 07/10/16 09:56 Dose: 10 mg Ceftriaxone Sodium (Rocephin 2 Gm Ivpb) 100 mls @ 100 mls/hr IVPB DAILY SARAH PRN Reason: Protocol Stop: 07/27/16 10:01 Last Admin: 07/10/16 09:59 Dose: 100 mls/hr Lorazepam (Ativan) 0.5 mg IVP STAT STA PRN Reason: Protocol Stop: 07/11/16 00:34 Metoprolol Tartrate (Lopressor) 50 mg PO 0800,1800 [facility] Last Admin: 07/10/16 17:54 Dose: 50 mg Pantoprazole Sodium (Protonix Inj) 40 mg IVP 0630 [facility] Last Admin: 07/10/16 05:30 Dose: 40 mg Risperidone (Risperdal Tab) 0.5 mg PO DAILY SARAH PRN Reason: Protocol Last Admin: 07/10/16 09:57 Dose: 0.5 mg Silver Sulfadiazine (Silvadene 1% 20 Gm) 0 ea TOP DAILY [facility] Last Admin: 07/10/16 10:25 Dose: 1 applic Vitamin A (Vitamin A & D Oint Ud Foilpak) 1 ea TOP BID PRN PRN Reason: chapped lips Last Admin: 07/10/16 09:56 Dose: 1 ea - Labs Labs: 07/10/16 06:00 07/10/16 06:00 PT 12.1 Seconds (9.9-11.8) H 07/02/16 06:15 INR 1.12 (0.93-1.08) H 07/02/16 06:15 APTT 87.8 Seconds (23.7-30.8) H* 07/07/16 06:20 - Constitutional Appears: Well, No Acute Distress - Head Exam Head Exam: ATRAUMATIC, NORMAL INSPECTION, NORMOCEPHALIC - Eye Exam Eye Exam: Normal appearance - ENT Exam ENT Exam: Mucous Membranes Moist - Neck Exam Neck Exam: Normal Inspection - Respiratory Exam Respiratory Exam: NORMAL BREATHING PATTERN - Cardiovascular Exam Cardiovascular Exam: absent: JVD - GI/Abdominal Exam GI & Abdominal Exam: absent: Distended - Rectal Exam Rectal Exam: Deferred - Extremities Exam Extremities Exam: Normal Inspection - Back Exam Back Exam: NORMAL INSPECTION - Neurological Exam Neurological Exam: Altered (Mental status.) - Psychiatric Exam Psychiatric exam: Normal Affect, Normal Mood - Skin Skin Exam: Normal Color Assessment and Plan - Assessment and Plan (Free Text) Assessment: A/P : Restlessness. Agitation. Dementia. HTN. Obesity. Pulse ox stat-96% on 3L/min. FSBS STAT-131 mg %. Benadryl 50 mg IV STAT. Move him closer to nursing station.
[2016-07-11] MEDS: Albuterol-Ipratrop 3 mg / 0.5 (3 ml) UD IH SCH ×4 (02:47→20:08)
[2016-07-11 06:25] LABS: ADD MANUAL DIFF? NO
[2016-07-11 06:45] LABS: BASO # 0.03 K/mm3 (0.0-2.0); BASO % 0.2 % (0.0-3.0); EOS # 0.1 (0.0-0.7); EOS % 1.1 % (1.5-5.0); GRAN # 9.94 (1.4-6.5); GRAN % 82.6 % (50.0-68.0); HEMATOCRIT 30.6 % (42.0-52.0); LYMPH % 8.1 % (22.0-35.0); MEAN CELL VOLUME 84.3 fL (80.0-105.0); MEAN CORPUSCULAR HEMOGLOBIN 27.3 pg (25.0-35.0); MEAN CORPUSCULAR HGB CONC 32.4 g/dl (31.0-37.0); MEAN PLATELET VOLUME 9.2 fl (7.0-11.0); PLATELET COUNT 310 10^3/uL (120.0-450.0)
--- NOTE | 2016-07-11 07:35 | PN ---
DATE: 07/11/2016 SUBJECTIVE: The patient appears comfortable this morning. He is not short of breath at rest. PHYSICAL EXAMINATION: VITAL SIGNS: Temperature is 98.6, pulse 91, respirations 18/20, blood pressure 179/61. Oxygen saturation on nasal cannula is 96-100%. HEENT: Normocephalic, atraumatic. No JVD. CARDIOVASCULAR: Systolic ejection murmur at the lower left sternal border. No S3 gallop. LUNGS: Minimal/less rhonchi. No wheezing. EXTREMITIES: Mild edema. No cyanosis, no clubbing. Calves are nontender to palpation. GASTROINTESTINAL: Abdomen is soft, nontender, nondistended. Bowel sounds are positive. SKIN: Improving cellulitis -- lower extremities (anterior aspects). NEUROLOGIC: Limited at the present time. PERTINENT LABORATORY DATA: Chest x-ray was repeated yesterday and reviewed. There is no active disease present. IMPRESSION: 1. Status post respiratory failure (multiple episodes). 2. Chronic obstructive pulmonary disease. 3. Bilateral cellulitis. 4. Severe sepsis. 5. Acute myocardial infarction. 6. Renal insufficiency. 7. Mild anemia. PLAN: The patient appears very comfortable this morning. He is not short of breath at rest. He states he is feeling much better overall. On physical exam , only minimal bronchospasm is noted. In addition, the oxygen saturation on nasal cannula is 96%-100%. I will continue with the current nebulizer treatments and aspiration precautions for now. The patient remains on antibiotic therapy -- as per infectious disease. Temperatures have resolved. The leukocytosis has also fully resolved. I would continue with the treatment for acute myocardial infarction as per cardiology. Clinical status of the patient is significantly improved -- compared to the end of last week. However , again, the overall status/prognosis of this patient remains very guarded. I will discuss the above with the attending physician. Ken Mancini MD cc: [id number] TT: 07/11/2016 07:34:49 Confirmation # [id number] Dictation # [id number] MTDD
--- NOTE | 2016-07-11 07:39 | PN ---
DATE: 07/11/2016 SUBJECTIVE: The patient has no complaints of any chest pain or shortness of breath, no headaches. PHYSICAL EXAMINATION: VITAL SIGNS: Temperature is 98.6, pulse of 81, blood pressure 179/61, respirations 21. GENERAL: The patient comfortable, in no acute distress. HEENT: Anicteric sclerae. Moist mucosa. NECK: No JVD or adenopathy. CARDIAC: S1/S2. No murmurs. No rubs. Regular. RESPIRATORY: Clear to auscultation bilaterally. No wheezes, rales, or rhonchi. Good air entry. ABDOMEN: Bowel sounds are positive, soft, nontender, and nondistended. EXTREMITIES: No edema. Has 1+ pulses. ASSESSMENT: 1. Delirium. 2. Sepsis. 3. Acute kidney injury secondary to rhabdomyolysis, resolved. 4. Hypoxic respiratory failure, status post extubation. 5. Proteinuria, 2 grams per day. 6. Lpr-GW-lsmwotj elevation myocardial infarction. 7. Hypophosphatemia. 8. Transaminitis, improving. 9. Hypernatremia, improved. 10. Right knee pain secondary to degenerative joint disease. 11. Left foot wound with staphylococcus infection. 12. Hematuria, resolved. PLAN: The patient is currently comfortable. His kidney function is back to normal. Last creatinin e was 1.2. His white count also has been back to normal. He is confused. He had liver functions th at have also normalized. His blood culture has been negative. His urine cultures have been negative . He is on nebulized treatments. He is receiving metoprolol and aspirin for his fvj-VK-vjggalr elev ation myocardial infarction. The patient had Protonix IV. The patient is going to continue on Rispe rdal for his delirium. We will continue to follow up closely. He will most likely need physical the rapy at a subacute rehab facility. I will speak to the patient's to give her an update on the p ricardo's diagnosis and plan of care. Kolby Last MD cc: [id number] TT: 07/11/2016 07:38:55 Confirmation # [id number] Dictation # [id number] mn
[2016-07-11] MEDS: Clotrimazole 1% Cream(30 gm) TOP SCH ×2 (10:03→17:21)
[2016-07-11] MEDS: Silver Sulfadiazine 1% Cream (20 gm) TOP SCH (10:03)
[2016-07-11 10:29] LABS: ALB/GLOB RATIO 0.7 (1.1-1.8); ALKALINE PHOSPHATASE 62 U/L (38-133); ALT/SGPT 65 U/L (7-56); AST/SGOT 70 U/L (15-59); BILIRUBIN,TOTAL 0.6 mg/dL (0.2-1.3); BLOOD UREA NITROGEN 37 mg/dL (7-21); CALCIUM 9.6 mg/dL (8.4-10.5); CARBON DIOXIDE 31 mmol/L (21-33); CHLORIDE 105 mmol/L (95-110); GFR AFRICAN-AMERICAN > 60; GLUCOSE,RANDOM 151 mg/dL (70-110); MAGNESIUM 1.7 mg/dL (1.7-2.2); PHOSPHOROUS 4.1 mg/dL (2.5-4.5); POTASSIUM 4.1 mmol/L (3.6-5.0); SODIUM 143 mmol/L (132-148)
--- NOTE | 2016-07-11 10:54 | PN ---
DATE: 07/11/2016 SUBJECTIVE: The patient is lying in bed in no acute distress. There is no chest pain or shortness o f breath. OBJECTIVE: VITAL SIGNS: Blood pressure 179/65, pulse 101, temperature 99, respiratory rate 22. LUNGS: Show bibasilar crackles. HEART: Regular rate and rhythm. Hepatojugular reflux is present. ABDOMEN: Soft, nontender. Bowel sounds are normoactive. EXTREMITIES: With dependent and presacral edema. NEUROLOGIC: The patient is awake and responsive without focal sensory or motor deficits. SKIN: Warm and dry. LABORATORY DATA: WBC is 12.0, hemoglobin 9.9, hematocrit 30.6. IMPRESSION: 1. Hypertension, hypertensive cardiovascular disease, and congestive heart failure. 2. Coronary artery disease status post non-ST segment elevation myocardial infarction. 3. Status post acute rhabdomyolysis with acute renal failure superimposed on mild chronic kidney dis ease. 4. Status post sepsis, presumed secondary to cellulitis of the lower extremities with chronic venous stasis ulcers. 5. Paroxysmal atrial fibrillation with intermittent rapid ventricular response. 6. Dementia with mild superimposed delirium secondary to underlying metabolic disorder. 7. Immobility secondary to severe degenerative joint disease and obesity with deconditioning. PLAN: We will continue diuresis with IV Lasix. Consider start angiotensin receptor randi, possibl y discontinue amlodipine secondary to edema. Physical therapy evaluation and treatment. Social work for discharge planning. Continue cardiology, infectious disease, and pulmonary followup. Leonid Calderón JD, MD cc: [id number] TT: 07/11/2016 10:54:09 Confirmation # [id number] Dictation # [id number] jn
--- NOTE | 2016-07-11 13:50 | CON ---
DATE: 07/11/2016 HISTORY OF PRESENT ILLNESS: The patient is an 80-year-old male. I reviewed his chart, spoke to nurs ing staff, spoke with patient. Patient was brought to the Emergency Room with complaints of right kn ee pain. Has a history of hypertension, dementia. The patient stated he fell at home, but he is not a good historian. The patient has been noted by family according to chart, he is having short term memory loss. The patient has had while in the hospital, treatment for acute kidney injury, sepsis. He has had hypophosphatemia. He was found to have degenerative joint disease. He had elevated tropo vic levels, probable non-ST wave [place], and proteinuria and obesity. PAST MEDICAL HISTORY: He had a past history of hypertension, dementia, falls. The patient has coron lizbet artery disease. He has a history of COPD. The patient has had rhabdomyolysis, obesity and decon ditioning. CURRENT LABORATORY DATA: His CBC, his white count is 12,000, it was as high as 25,400, hemoglobin 9. 9, platelet count 310,000. His metabolic profile show his electrolytes have been within normal range . BUN is 37, creatinine 1.3, estimated GFR of 53. On admission, his estimated GFR was 39. The natty ent's hemoglobin A1c was 167. His random glucose today 151. His troponin 1 level yesterday was 0.58 , BNP was 7200, albumin 2.5. 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 There is also perive ntricular white matter and scattered chronic bilateral basilar nuclear ischemic changes. PERSONAL HISTORY: He is . He lives with his . CURRENT MEDICATIONS: Include: Apresoline, aspirin, DuoNeb treatments, heparin, Lasix, Lopressor, Lo trimin, Norvasc, Protonix. He is receiving vitamin A, Rocephin IVPB. PHYSICAL EXAMINATION: VITAL SIGNS: His blood pressure is 179/65, pulse 101, respirations 20 per minute, O2 saturation 94% on nasal cannula. PSYCHIATRIC MENTAL STATUS: He is awake. He is sitting in a chair. Speech is slightly dysarthric, s omewhat disorganized. He is confused, disoriented to place, date, thinks it is April. Patient's r ecent memory is clouded as is his insight and judgment. Claims he is seeing animals, specifically, s quirrels in his room as we currently were talking. Recent and intermediate memory is poor. He has c onfabulatory thinking. 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 He has status post non-ST wave myocardial infarction, rhabdomyolysis, sepsis. Th e patient has had a frontoparietal atrophy of the brain. He has paroxysmal atrial fibrillation, obes ity, chronic obstructive pulmonary disease, congestive heart failure, hypertensive cardiovascular dis ease, degenerative joint disease, and deconditioning. PLAN: We will increase Risperdal to 0.25 mg b.i.d. and 0.5 mg at bedtime. We will leave a p.r.n. or courtney for ziprasidone 10 mg IM q. 6 hours p.r.n. for agitation. Discussed the case at length with nurs ing staff. The patient's bed is right in front nurses' station but should his room change, he should have 1 to 1 observation. We will continue to closely monitor his mental status and follow up tomorr ow. Julian Lim MD cc: [id number] TT: 07/11/2016 13:49:26 Confirmation # [id number] Dictation # [id number] jn
[2016-07-12] MEDS: Albuterol-Ipratrop 3 mg / 0.5 (3 ml) UD IH SCH ×4 (01:47→19:30)
[2016-07-12 06:35] LABS: ADD MANUAL DIFF? NO
[2016-07-12 06:53] LABS: BASO # 0.03 K/mm3 (0.0-2.0); BASO % 0.3 % (0.0-3.0); EOS # 0.1 (0.0-0.7); EOS % 1.4 % (1.5-5.0); GRAN # 8.43 (1.4-6.5); GRAN % 81.6 % (50.0-68.0); HEMATOCRIT 28.4 % (42.0-52.0); LYMPH # 0.7 (1.2-3.4); LYMPH % 6.9 % (22.0-35.0); MEAN CELL VOLUME 84.8 fL (80.0-105.0); MEAN CORPUSCULAR HEMOGLOBIN 27.2 pg (25.0-35.0); MEAN PLATELET VOLUME 9.1 fl (7.0-11.0); MONO % 9.8 % (1.0-6.0); PLATELET COUNT 302 10^3/uL (120.0-450.0); RED CELL DISTRIBUTION WIDTH 13.9 % (11.5-14.5); WHITE BLOOD COUNT 10.3 10^3/ul (4.5-11.0)
[2016-07-12 07:18] LABS: ALB/GLOB RATIO 0.7 (1.1-1.8); ALKALINE PHOSPHATASE 63 U/L (38-133); ALT/SGPT 48 U/L (7-56); AST/SGOT 53 U/L (15-59); BILIRUBIN,TOTAL 0.8 mg/dL (0.2-1.3); BLOOD UREA NITROGEN 31 mg/dL (7-21); CARBON DIOXIDE 31 mmol/L (21-33); CHLORIDE 104 mmol/L (98-107); GFR AFRICAN-AMERICAN > 60; GLUCOSE,RANDOM 128 mg/dL (70-110); POTASSIUM 3.9 mmol/L (3.6-5.0); SODIUM 142 mmol/L (132-148); TOTAL PROTEIN 6.4 g/dL (5.8-8.3)
[2016-07-12] MEDS: Pantoprazole 40 mg EC Tab PO SCH (08:47)
--- NOTE | 2016-07-12 09:16 | PN ---
DATE: 07/12/2016 SUBJECTIVE: The patient appears comfortable this morning. He is not short of breath at rest. PHYSICAL EXAMINATION: VITAL SIGNS: Temperature is 98.1, pulse on the monitor is 84, respiratory rate 18/20, blood pressure 157/66. Oxygen saturation on nasal cannula is 96%. HEENT: Normocephalic, atraumatic. No JVD. CARDIOVASCULAR: Systolic ejection murmur at the lower left sternal border. No S3 gallop. LUNGS: Minimal bilateral rhonchi. No wheezing. EXTREMITIES: Mild edema. No cyanosis, no clubbing. Calves are nontender to palpation. GASTROINTESTINAL: Abdomen is soft, nontender, nondistended. Bowel sounds are positive. SKIN: Resolving cellulitis - lower extremities (anterior aspects). NEUROLOGIC: Limited at the present time. IMPRESSION: 1. Status post respiratory failure (multiple episodes). 2. Chronic obstructive pulmonary disease. 3. Bilateral cellulitis. 4. Severe sepsis. 5. Acute myocardial infarction. 6. Renal insufficiency. 7. Mild anemia. PLAN: The patient appears very comfortable this morning. He is not short of breath at rest. He states he is feeling better overall. On physical exam, only minimal bronchospasm is noted. In addition, the oxygen saturation on nasal cannula is now 96%. I will continue with the current nebulizer treatments and aspiration precautions. I would continue with the antibiotic coverage as per infectious disease. Input by Dr. Wylie is noted. I would continue with the treatment for acute myocardial infarction as per cardiology. Again, clinically, the patient is significantly improved - compared to last week. However, again, the overall status/prognosis of this patient remains very guarded. I will discuss the above with the attending physician. Ken Mancini MD cc: [id number] TT: 07/12/2016 09:16:15 Confirmation # [id number] Dictation # [id number] samuel ROSS
--- NOTE | 2016-07-12 09:18 | PN ---
DATE: 07/12/2016 SUBJECTIVE: This has episodes of confusion. He has no complaints of headache or dizziness. He says he would like to go home. PHYSICAL EXAMINATION: VITAL SIGNS: Temperature is 99.1, pulse of 80, blood pressure is 136/42, respirations 22. GENERAL: The patient comfortable, in no acute distress. HEENT: Anicteric sclerae. Moist mucosa. NECK: No JVD or adenopathy. CARDIAC: S1/S2. No murmurs. No rubs. Regular. RESPIRATORY: Clear to auscultation bilaterally. No wheezes, rales, or rhonchi. Good air entry. ABDOMEN: Bowel sounds are positive, soft, nontender, and nondistended. EXTREMITIES: No edema. Has 1+ pulses. LABORATORY: White count of 12.0, hemoglobin 9.9 . ASSESSMENT: 1. Hematuria. 2. Delirium. 3. Sepsis. 4. Acute kidney injury secondary to rhabdomyolysis, resolved. 5. Hypoxic respiratory failure, resolved. 6. Proteinuria. 7. Non-ST elevation myocardial infarction, resolved. 8. Hypophosphatemia, improved. 9. Transaminitis, resolved. 10. Hypernatremia, resolved. 11. Right knee pain secondary to degenerative joint disease. 12. Left foot wound with Staphylococcus infection, improved. PLAN: The patient is currently comfortable. He needs to be in restraints to prevent self-harm. The patient was seen by Dr. Lim for his agitation. He had increased his Risperdal 0.25 b.i.d. and 0. 5 at bedtime. He is on aspirin for his coronary artery disease. He is receiving nebulizer treatment s. The patient is on ziprasidone for agitation p.r.n. He is on heparin for DVT prophylaxis. The kris moya is receiving metoprolol for his non-ST elevation [place]. He is on Norvasc for hypertension. He is receiving Protonix daily. The patient is on Rocephin for antibiotics. Overall prognosis is guarded . Unable to discharge until the patient's mental has improved. I did speak to the patient's ye sterday and I will give her an update on patient's diagnosis and plan of care. Kolby Last MD cc: [id number] TT: 07/12/2016 09:17:38 Confirmation # [id number] Dictation # [id number] mn
--- NOTE | 2016-07-12 12:21 | PN ---
DATE: 07/12/2016 The patient is an 80-year-old male asked to be evaluated due to confusion and agitation. The patient initially evaluated by me yesterday. Found to be having visual hallucinations and confusion and dis organized thinking. I spoke to patient's at bedside. I reviewed nurse's notes. The patient wa s awake at 2 a.m., was confused with some restlessness. The patient was sleeping again at 4 a.m., aw ayse at 6 a.m. The patient's stated that she did not want patient on any antipsychotic medicine. I explained that he has been having visual hallucinations. She felt that that was irrelevant. CURRENT MENTAL STATUS: He is awake, he is confused. He is aware that he is in the hospital. Disori ented to month, year and day. He seems somewhat apathetic, but awake. He does not appear to be havi ng any ____ from any psychotropic medication. The patient denies having any visual phenomenon. In r eview of the medications, he ____ any psychotropic medications and he did not receive any Risperdal y , probably at the urging of his . CURRENT OTHER MEDICATIONS: Include Rocephin IV. The patient is receiving Protonix, Norvasc, Lopress or, Lasix, heparin, DuoNeb treatment, aspirin, Apresoline. CURRENT LABORATORY DATA: His white count is 10,300, hemoglobin of 9.1, platelet count of 302,000. M etabolic profile: His electrolytes were all within normal range. The BUN is 31, creatinine 1.2, est imated GFR 58, glucose 128. His albumin was 2.7. The rest of parameters were all unremarkable. VITAL SIGNS: Blood pressure 133/50, pulse 89, respirations 18 per minute. IMPRESSION: The patient has resolving delirium, he has severe dementia with recent visual hallucinat ions, none today; status post non-ST-wave myocardial infarction, mild rhabdomyolysis, sepsis. He has frontoparietal atrophy of the brain. He has paroxysmal atrial fibrillation, history of obesity, his tory of chronic obstructive pulmonary disease, history of chronic kidney disease. PLAN: Will discuss the case with the consulting physician, Dr. Last. Will discontinue Risperdal during the day; leave the order for zac, and leave a p.r.n. order for Geodon in case the patient gets very agitated. Continue to monitor mental status. Julian Lim MD cc: [id number] TT: 07/12/2016 12:06:43 Confirmation # [id number] Dictation # [id number] mn
[2016-07-12] MEDS: Silver Sulfadiazine 1% Cream (20 gm) TOP SCH (12:58)
[2016-07-12] MEDS: Clotrimazole 1% Cream(30 gm) TOP SCH ×2 (12:58→17:43)
--- NOTE | 2016-07-12 14:26 | CP.PCM.PN ---
Subjective - Date & Time of Evaluation Date of Evaluation: 07/12/16 Time of Evaluation: 08:40 - Subjective Subjective: Comfortable in bed, no shortness of breath at rest, no fevers overnight, not in distress. Objective - Vital Signs/Intake and Output Vital Signs (last 24 hours): Temp Pulse Resp BP Pulse Ox 97.1 F L 85 19 150/54 L 96 07/12/16 12:00 07/12/16 12:00 07/12/16 12:00 07/12/16 12:00 07/12/16 06:00 Intake and Output: 07/12/16 07/12/16 06:59 18:59 Intake Total 340 Balance 340 - Medications Medications: Current Medications Acetaminophen (Tylenol 325mg Tab) 650 mg PO Q4 PRN PRN Reason: Fever >100.4 F Last Admin: 06/30/16 09:15 Dose: 650 mg Albuterol/Ipratropium (Duoneb 3 Mg/0.5 Mg (3 Ml) Ud) 3 ml IH [id number] [facility] Last Admin: 07/12/16 08:24 Dose: 3 ml Albuterol/Ipratropium (Duoneb 3 Mg/0.5 Mg (3 Ml) Ud) 3 ml IH Q2H PRN PRN Reason: Shortness of Breath Aspirin (Aspirin) 325 mg PO DAILY [facility] Last Admin: 07/12/16 11:17 Dose: 325 mg Clotrimazole (Lotrimin 1%) 0 gm TOP BID [facility] Last Admin: 07/12/16 12:58 Dose: 1 applic Furosemide (Lasix) 80 mg PO DAILY [facility] Heparin Sodium (Porcine) (Heparin) 5,000 units SC Q12 SARAH PRN Reason: Protocol Last Admin: 07/12/16 11:17 Dose: 5,000 units Hydralazine HCl (Apresoline) 10 mg IVP Q6 PRN PRN Reason: Systolic Blood Pressure Last Admin: 07/10/16 09:56 Dose: 10 mg Ceftriaxone Sodium (Rocephin 2 Gm Ivpb) 100 mls @ 100 mls/hr IVPB DAILY [facility] PRN Reason: Protocol Stop: 07/27/16 10:01 Last Admin: 07/12/16 11:19 Dose: 100 mls/hr Losartan Potassium (Cozaar) 25 mg PO DAILY [facility] Metoprolol Tartrate (Lopressor) 50 mg PO 0800,1800 [facility] Last Admin: 07/12/16 08:47 Dose: 50 mg Pantoprazole Sodium (Protonix Ec Tab) 40 mg PO ACB [facility] Last Admin: 07/12/16 08:47 Dose: 40 mg Silver Sulfadiazine (Silvadene 1% 20 Gm) 0 ea TOP DAILY [facility] Last Admin: 07/12/16 12:58 Dose: 1 applic Vitamin A (Vitamin A & D Oint Ud Foilpak) 1 ea TOP BID PRN PRN Reason: chapped lips Last Admin: 07/10/16 09:56 Dose: 1 ea - Labs Labs: 07/12/16 06:25 07/12/16 06:25 PT 12.1 Seconds (9.9-11.8) H 07/02/16 06:15 INR 1.12 (0.93-1.08) H 07/02/16 06:15 APTT 87.8 Seconds (23.7-30.8) H* 07/07/16 06:20 - Constitutional Appears: Non-toxic, No Acute Distress - Head Exam Head Exam: NORMAL INSPECTION - ENT Exam ENT Exam: Mucous Membranes Moist - Neck Exam Neck Exam: absent: Lymphadenopathy, Meningismus - Respiratory Exam Respiratory Exam: Decreased Breath Sounds - Cardiovascular Exam Cardiovascular Exam: +S1, +S2 - GI/Abdominal Exam GI & Abdominal Exam: Soft. absent: Tenderness - Extremities Exam Additional comments: decreased swelling of the lower extremities, decreased erythema Assessment and Plan - Assessment and Plan (Free Text) Plan: Assessment severe sepsis S/P shock S/P ventilator-dependent respiratory failure with acute on chronic renal failure due to Group G strep bacteremia, probably secondary to bilateral lower extremities skin and skin structure infection; also with MSSA from the wound cultures; so far no evidence of new infection; patient is clinically improving; he was intubated for hypercarbic respiratory failure and congestion, no evidence of pneumonia currently acute rhabdomyolysis consider acute NSTEMI HTN chronic renal failure dementia obesity with BMI 38 Plan continue Rocephin (day 11 from first negative blood cx); repeat septic work up so far negative, PCT is improving; CXR does not show focal infiltrates; patient should finish 28 days of antibiotics 2D echocardiogram didnot show vegetations will continue to monitor clinically
--- NOTE | 2016-07-12 14:36 | PN ---
DATE: 07/12/2016 SUBJECTIVE: The patient is lying in bed in no acute distress. There is no chest pain, no shortness breath. He remains confused, not agitated. OBJECTIVE: VITAL SIGNS: Blood pressure 150/54, temperature 97.1, pulse 85, respiratory rate 19. LUNGS: Show a few bibasilar rales. HEART: Regular rate and rhythm. Hepatojugular reflux is present. ABDOMEN: Soft, nontender, bowel sounds are normoactive. EXTREMITIES: With marked dependent edema. NEUROLOGIC: The patient is awake and responsive without focal sensory or motor deficits. He remains confused. SKIN: Warm and dry. LABORATORY DATA: WBC is 10.3, hemoglobin 9.1, hematocrit 28.4, sodium 142, potassium 3.9, chloride 1 04, CO2 31, BUN 31, creatinine 1.2, glucose 128. IMPRESSION: 1. Hypertension, hypertensive cardiovascular disease and congestive heart failure. 2. Coronary artery disease status post [id number] elevation myocardial infarction. 3. Status post acute rhabdomyolysis with acute renal failure superimposed on mild chronic kidney dis ease. 4. Status post sepsis presumed secondary to cellulitis of the lower extremities with chronic venous stasis ulcers. 5. Paroxysmal atrial fibrillation with intermittent rapid ventricular response. 6. Dementia with mild superimposed delirium secondary to underlying medical problem. 7. Immobility secondary to severe degenerative joint disease with obesity and deconditioning. PLAN: Case was discussed with patient's . She is adamantly opposed to the use of any physical r estraints and/or neuroleptic medications. Will order 1:1 observation and discontinue Geodon and Risp erdal. Will discontinue IV Lasix and start Lasix 80 mg p.o. daily. Will discontinue amlodipine seco ndary to the peripheral edema and start losartan 50 mg daily. The patient is for possible transfer t o subacute care at [facility] tomorrow. Leonid Calderón JD, MD cc: [id number] TT: 07/12/2016 14:35:51 Confirmation # [id number] Dictation # [id number] mn
--- NOTE | 2016-07-12 20:17 | CON ---
DATE: 07/12/2016 HISTORY OF PRESENT ILLNESS: I was asked to see the patient because the patient had pulled out a Fole y catheter approximately a week ago and there was some question of some periurethral bleeding. He is incontinent. His is at the bedside. According to her, he has been going in large quantities w ithout any problems. There was no blood on any of the Depends that I saw. He has no suprapubic full ness. He does not appear to be uncomfortable at all. The patient was admitted for sepsis and was grow ing gram-positive organisms. Does not appear to be urologic in origin. He was admitted with a histo ry of severe pain in his right knee. He had elevated troponins. He has multiple lesions on his feet and legs, which may be the source of his positive cultures. PAST MEDICAL HISTORY: Significant that he is under the care of Dr. Hay for his skin lesions and his healing of his ulcerated areas. ALLERGIES: He has no allergies. MEDICATIONS: At home, he is on Cozaar and Lasix. SOCIAL HISTORY: Noncontributory. FAMILY HISTORY: Noncontributory. REVIEW OF SYMPTOMS: Difficult to obtain, but no apparent symptoms referable to the head, eyes, ears, nose or throat. No cardiac or respiratory symptoms at this time. PHYSICAL EXAMINATION: VITAL SIGNS: Shows him to be afebrile, pulse 92, blood pressure 178/68, respirations 20. ABDOMEN: Completely soft. No rebound or guarding. GENITALIA: Penis, scrotum, cord, epididymis normal. There is no evidence of any urethritis or any l esions at the urethral meatus. He appears to be voiding in large amounts. I asked the nurse to scan him just to make sure that his bladder was empty and if so, there is no need for any further urologic involvement. Erick Dubose MD cc: [id number] TT: 07/12/2016 20:16:35 Confirmation # [id number] Dictation # [id number] [place]
[2016-07-12] MEDS: Vitamins A & D Oint UD Foilpak TOP PRN (21:43)
--- NOTE | 2016-07-13 00:37 | CP.PCM.PN ---
Subjective - Date & Time of Evaluation Date of Evaluation: 07/13/16 Time of Evaluation: 00:23 - Subjective Subjective: "Has blood in urine, there is clot also." Patient was seen at bedside. Has no complaints. I was able to see some clots at meatus and nearby on diaper. Pertinent medical record was reviewed. There is no hematemesis, no hemoptysis or hematochezia. came earlier. 's note was reviewed. This 80 year old white male was admitted with right knee pain, paroxysmal atrial fibrillation. Has PMH of HTN, dementia, Obesity, cataract, herniorrhaphy, nephrolithiasis. Objective - Vital Signs/Intake and Output Vital Signs (last 24 hours): Temp Pulse Resp BP Pulse Ox 99.1 F 65 20 178/68 H 96 07/12/16 18:00 07/12/16 22:00 07/12/16 18:00 07/12/16 18:04 07/12/16 06:00 - Medications Medications: Current Medications Acetaminophen (Tylenol 325mg Tab) 650 mg PO Q4 PRN PRN Reason: Fever >100.4 F Last Admin: 06/30/16 09:15 Dose: 650 mg Albuterol/Ipratropium (Duoneb 3 Mg/0.5 Mg (3 Ml) Ud) 3 ml IH [id number] [facility] Last Admin: 07/12/16 19:30 Dose: 3 ml Albuterol/Ipratropium (Duoneb 3 Mg/0.5 Mg (3 Ml) Ud) 3 ml IH Q2H PRN PRN Reason: Shortness of Breath Aspirin (Aspirin) 325 mg PO DAILY [facility] Last Admin: 07/12/16 11:17 Dose: 325 mg Clotrimazole (Lotrimin 1%) 0 gm TOP BID [facility] Last Admin: 07/12/16 17:43 Dose: Not Given Furosemide (Lasix) 80 mg PO DAILY [facility] Last Admin: 07/12/16 15:13 Dose: 80 mg Heparin Sodium (Porcine) (Heparin) 5,000 units SC Q12 [facility] PRN Reason: Protocol Last Admin: 07/12/16 21:43 Dose: 5,000 units Hydralazine HCl (Apresoline) 10 mg IVP Q6 PRN PRN Reason: Systolic Blood Pressure Last Admin: 07/10/16 09:56 Dose: 10 mg Ceftriaxone Sodium (Rocephin 2 Gm Ivpb) 100 mls @ 100 mls/hr IVPB DAILY [facility] PRN Reason: Protocol Stop: 07/27/16 10:01 Last Admin: 07/12/16 11:19 Dose: 100 mls/hr Losartan Potassium (Cozaar) 25 mg PO DAILY [facility] Last Admin: 07/12/16 15:12 Dose: 25 mg Metoprolol Tartrate (Lopressor) 50 mg PO 0800,1800 [facility] Last Admin: 07/12/16 18:04 Dose: 50 mg Pantoprazole Sodium (Protonix Ec Tab) 40 mg PO ACB [facility] Last Admin: 07/12/16 08:47 Dose: 40 mg Silver Sulfadiazine (Silvadene 1% 20 Gm) 0 ea TOP DAILY [facility] Last Admin: 07/12/16 12:58 Dose: 1 applic Vitamin A (Vitamin A & D Oint Ud Foilpak) 1 ea TOP BID PRN PRN Reason: chapped lips Last Admin: 07/12/16 21:43 Dose: 1 ea - Labs Labs: 07/12/16 06:25 07/12/16 06:25 PT 12.1 Seconds (9.9-11.8) H 07/02/16 06:15 INR 1.12 (0.93-1.08) H 07/02/16 06:15 APTT 87.8 Seconds (23.7-30.8) H* 07/07/16 06:20 - Constitutional Appears: Well, No Acute Distress - Head Exam Head Exam: ATRAUMATIC, NORMAL INSPECTION, NORMOCEPHALIC Additional comments: Obese person. - Eye Exam Eye Exam: Normal appearance - ENT Exam ENT Exam: Normal External Ear Exam - Neck Exam Neck Exam: Normal Inspection - Respiratory Exam Respiratory Exam: NORMAL BREATHING PATTERN - Cardiovascular Exam Cardiovascular Exam: absent: JVD - GI/Abdominal Exam GI & Abdominal Exam: absent: Distended - Rectal Exam Rectal Exam: Deferred - Extremities Exam Extremities Exam: Normal Inspection - Back Exam Back Exam: NORMAL INSPECTION - Neurological Exam Neurological Exam: Altered (mental status.) - Psychiatric Exam Psychiatric exam: Agitated (intermittently.) - Skin Additional comments: Right Infra axillary large old echymotic patch present. Assessment and Plan - Assessment and Plan (Free Text) Assessment: A/P: Hematuria with blood clots. AMS. Obesity. Nephrolithiasis. Dementia. Hold heparin. CBC, PT/INR/PTT in AM. Nurse will call in AM.
[2016-07-13] MEDS: Albuterol-Ipratrop 3 mg / 0.5 (3 ml) UD IH SCH ×4 (02:03→20:01)
[2016-07-13 06:36] LABS: ADD MANUAL DIFF? NO
[2016-07-13] MEDS: Pantoprazole 40 mg EC Tab PO SCH (06:37)
[2016-07-13 06:41] LABS: BASO # 0.03 K/mm3 (0.0-2.0); BASO % 0.3 % (0.0-3.0); EOS # 0.2 (0.0-0.7); EOS % 2.3 % (1.5-5.0); GRAN # 7.54 (1.4-6.5); GRAN % 75.9 % (50.0-68.0); HEMATOCRIT 27.3 % (42.0-52.0); LYMPH # 1.2 (1.2-3.4); LYMPH % 12.2 % (22.0-35.0); MEAN CORPUSCULAR HEMOGLOBIN 27.4 pg (25.0-35.0); MEAN CORPUSCULAR HGB CONC 32.2 g/dl (31.0-37.0); MONO # 0.9 (0.1-0.6); MONO % 9.3 % (1.0-6.0); PLATELET COUNT 301 10^3/uL (120.0-450.0); RED CELL DISTRIBUTION WIDTH 13.8 % (11.5-14.5); WHITE BLOOD COUNT 9.9 10^3/ul (4.5-11.0)
[2016-07-13] MEDS: Albuterol-Ipratrop 3 mg / 0.5 (3 ml) UD IH PRN (06:42)
[2016-07-13 06:50] LABS: INR 1.27 (0.93-1.08); PARTIAL THROMBOPLASTIN TIME 33.2 Seconds (23.7-30.8)
[2016-07-13 06:53] LABS: ALB/GLOB RATIO 0.6 (1.1-1.8); ALKALINE PHOSPHATASE 55 U/L (38-133); ALT/SGPT 57 U/L (7-56); AST/SGOT 74 U/L (15-59); BILIRUBIN,TOTAL 0.5 mg/dL (0.2-1.3); BLOOD UREA NITROGEN 31 mg/dL (7-21); CALCIUM 9.9 mg/dL (8.4-10.5); CARBON DIOXIDE 35 mmol/L (21-33); CHLORIDE 101 mmol/L (98-107); GFR AFRICAN-AMERICAN > 60; GLUCOSE,RANDOM 127 mg/dL (70-110); POTASSIUM 3.8 mmol/L (3.6-5.0); SODIUM 143 mmol/L (132-148); TOTAL PROTEIN 6.4 g/dL (5.8-8.3)
--- NOTE | 2016-07-13 08:20 | PN ---
DATE: 07/13/2016 SUBJECTIVE: The patient has no complaints of any chest pain, no shortness of breath, no headaches, n o dizziness. PHYSICAL EXAMINATION: VITAL SIGNS: Temperature is 98.5, pulse is 90, blood pressure is 136/55, respirations 20, O2 saturat ion 99%. GENERAL: The patient comfortable, in no acute distress. HEENT: Anicteric sclerae. Moist mucosa. NECK: No JVD or adenopathy. CARDIAC: S1/S2. No murmurs. No rubs. Regular. RESPIRATORY: Clear to auscultation bilaterally. No wheezes, rales, or rhonchi. Good air entry. ABDOMEN: Bowel sounds are positive, soft, nontender, and nondistended. EXTREMITIES: Lower extremity 1+ edema. Has 1+ pulses. ASSESSMENT: 1. Hematuria. 2. Delirium, improved. 3. Sepsis, resolved. 4. Acute kidney injury due to rhabdomyolysis, resolved. 5. Hypoxic respiratory failure, resolved. 6. Non-ST elevation myocardial infarction, resolved. 7. Hypophosphatemia, improved. 8. Transaminitis, resolved. 9. Hypernatremia, resolved. 10. Right knee pain, secondary to degenerative joint disease. 11. Left wound with staph infection, improved. 12. Left peripherally inserted central catheter line. PLAN: The patient is currently comfortable. He has had multiple blood cultures that have been negative. T he patient's states that he had a staph infection. I tried to update her regarding the infectio n. I did let her know that he had a staph infection previously, but that has improved and multiple b lood cultures have been negative. She was under the impression that infection is currently active. I spoke to her at length yesterday and stated that the infection is under control with the treatment that we have given him. He is currently on Rocephin and this is being continued. The patient was spencer ving hallucinations, so Dr. Lim was asked to evaluate the patient for management of the delusions. The patient's supplements have been on hold because of hematuria. The patient has lower extremity edema. The patient has received a significant amount of fluid. He is on Lasix. Dr. Calderón has incre ased his Lasix to 80 mg. The patient is ready to be discharged to [facility]. The patie nt's was agreeable yesterday. The patient is on 1:1 and we will need to have him go off the 1:1 before he can be discharged. The patient is currently comfortable and is currently improved. The p atdede does have a peripherally inserted central catheter line and is receiving IV antibiotics. He i s on day #12 of antibiotics out of 28. Kolby Last MD cc: [id number] TT: 07/13/2016 08:20:11 Confirmation # [id number] Dictation # [id number] en
--- NOTE | 2016-07-13 08:44 | PN ---
DATE: 07/13/2016 The patient appears very comfortable this morning. He is not short of breath at rest. PHYSICAL EXAMINATION: VITAL SIGNS: Temperature is 97.3, pulse 64, respirations 18, blood pressure 138 /56. Oxygen saturation on nasal cannula is 96%-99%. HEENT: Normocephalic, atraumatic. No JVD. CARDIOVASCULAR: Systolic ejection murmur at the lower left sternal border. No S3 gallop. LUNGS: Very minimal/less rhonchi. No wheezing. EXTREMITIES: Mild edema. No cyanosis, no clubbing. Calves are nontender to palpation. GASTROINTESTINAL: Abdomen is soft, nontender, nondistended. Bowel sounds are positive. SKIN: Resolving cellulitis -- lower extremities (anterior aspects). NEUROLOGIC: Limited at the present time. IMPRESSION: 1. Status post respiratory failure (multiple episodes). 2. Chronic obstructive pulmonary disease. 3. Bilateral cellulitis. 4. Severe sepsis. 5. Acute myocardial infarction. 6. Renal insufficiency. 7. Mild anemia. PLAN: The patient appears very comfortable this morning. He is not short of breath at rest. He states he is feeling much better overall. On physical exam , his bronchospasm continues to resolve. In addition, the arterial-gradient also continues to resolve. Oxygen saturation on nasal cannula is now 96%-99%. I will continue with the current nebulizer treatments for now. The patient remains on antibiotic therapy -- as per infectious disease. Temperatures have resolved. The leukocytosis has resolved. Clinical status of the patient is certainly improved -- compared to last week. However, again, the overall status /prognosis of this elderly gentleman remains guarded. I will discuss the above with the attending physician. Ken Mancini MD cc: [phone] TT: 07/13/2016 08:43:40 Confirmation # [id number] Dictation # [id number] en MTDD
--- NOTE | 2016-07-13 09:51 | PN ---
DATE: 07/13/2016 SUBJECTIVE: The patient is seen lying in bed, on telemetry. He is comfortable at rest. His confusi on appears improved. CURRENT MEDICATIONS: Include aspirin, Cozaar 25 mg daily, DuoNeb inhaler, subcutaneous heparin, Lasi x 80 mg daily, metoprolol 50 mg b.i.d., Protonix 40 mg daily, Rocephin, Silvadene cream. OBJECTIVE: GENERAL: He is an elderly man, appears comfortable at the present time. VITAL SIGNS: His blood pressure is 136/56 with a pulse of 64 in sinus, respirations are 14. HEENT: No JVD. CHEST: A few scattered rhonchi heard. HEART: PMI displaced laterally with a systolic murmur at the left sternal border. ABDOMEN: Soft, nontender, normoactive bowel sounds. EXTREMITIES: His lower extremity wounds are dressed and his erythematous changes appear improved. Potassium 3.8, BUN and creatinine ARE 31 and 1.2. Hemoglobin and hematocrit 8.8 and 27.3 with a whit e count of 9.9, platelet count of 301,000. IMPRESSION: 1. Rhabdomyolysis, resolved. 2. Acute renal failure, improved as well. 3. Cellulitis, improving with local treatment. 4. Probable coronary artery disease, stable at present. RECOMMENDATIONS: His current medications should be continued. Conservative cardiac management is ad vised. We will be happy to follow along as needed. Ashish Willis MD cc: [phone] TT: 07/13/2016 09:49:51 Confirmation # [id number] Dictation # [id number] en
[2016-07-13] MEDS: Clotrimazole 1% Cream(30 gm) TOP SCH ×2 (11:12→18:45)
[2016-07-13] MEDS: Silver Sulfadiazine 1% Cream (20 gm) TOP SCH (11:13)
--- NOTE | 2016-07-13 13:11 | PN ---
DATE: 07/13/2016 SUBJECTIVE: The patient is lying in bed in no acute distress. He denies chest pain or shortness of breath. He is less confused than previous and not agitated. OBJECTIVE: VITAL SIGNS: Blood pressure 138/56, pulse 65, temperature 97.3, respiratory rate 18. LUNGS: Clear. HEART: Regular rate and rhythm. ABDOMEN: Soft, nontender, bowel sounds are normoactive. EXTREMITIES: Decreased dependent edema. NEUROLOGIC: The patient is awake and responsive without focal sensory or motor deficits. Remains so mewhat confused. SKIN: Warm and dry. LABORATORY DATA: WBC is 9.9, hemoglobin 8.8, hematocrit 27.3. Sodium 143, potassium 3.8, chloride 1 01, CO2 of 35, BUN 31, creatinine 1.2, glucose 127. IMPRESSION: 1. Hypertension, hypertensive cardiovascular disease and congestive heart failure. 2. Coronary artery disease status post non-ST segment elevation myocardial infarction. 3. Status post acute rhabdomyolysis with acute renal failure superimposed on mild chronic kidney dis ease. 4. Status post sepsis, presumed secondary to cellulitis of the lower extremities with chronic venous stasis ulcers. 5. Paroxysmal atrial fibrillation with intermittent rapid ventricular response. 6. Dementia with mild superimposed delirium secondary to underlying metabolic problem. 7. Immobility secondary to severe degenerative joint disease with obesity and deconditioning. 8. Anemia, probably secondary to repeated phlebotomy. Rule out gastrointestinal bleed. 9. Hyperglycemia. PLAN: The patient appears medically stable at the present time and he is for possible transfer to [facility] today. Thank you for this consultation. Leonid Calderón JD, MD cc: [phone] TT: 07/13/2016 13:10:30 Confirmation # [id number] Dictation # [id number] sn
--- NOTE | 2016-07-13 15:17 | CP.PCM.PN ---
Subjective - Date & Time of Evaluation Date of Evaluation: 07/13/16 Time of Evaluation: 08:50 - Subjective Subjective: Comfortable in bed, no leg pain, breathing well, not in distress. Afebrile overnight. Objective - Vital Signs/Intake and Output Vital Signs (last 24 hours): Temp Pulse Resp BP Pulse Ox 97.1 F L 92 H 19 181/68 H 96 07/13/16 12:00 07/13/16 12:00 07/13/16 12:00 07/13/16 12:00 07/13/16 06:00 Intake and Output: 07/13/16 07/13/16 06:59 18:59 Intake Total 600 Output Total 200 Balance 400 - Medications Medications: Current Medications Acetaminophen (Tylenol 325mg Tab) 650 mg PO Q4 PRN PRN Reason: Fever >100.4 F Last Admin: 06/30/16 09:15 Dose: 650 mg Albuterol/Ipratropium (Duoneb 3 Mg/0.5 Mg (3 Ml) Ud) 3 ml IH [id number] [facility] Last Admin: 07/13/16 13:37 Dose: 3 ml Albuterol/Ipratropium (Duoneb 3 Mg/0.5 Mg (3 Ml) Ud) 3 ml IH Q2H PRN PRN Reason: Shortness of Breath Last Admin: 07/13/16 06:42 Dose: 3 ml Aspirin (Aspirin) 325 mg PO DAILY [facility] Last Admin: 07/13/16 11:09 Dose: 325 mg Clotrimazole (Lotrimin 1%) 0 gm TOP BID [facility] Last Admin: 07/13/16 11:12 Dose: 1 applic Furosemide (Lasix) 80 mg PO DAILY [facility] Last Admin: 07/13/16 11:09 Dose: 80 mg Heparin Sodium (Porcine) (Heparin) 5,000 units SC Q12 SARAH PRN Reason: Protocol Last Admin: 07/12/16 21:43 Dose: 5,000 units Hydralazine HCl (Apresoline) 10 mg IVP Q6 PRN PRN Reason: Systolic Blood Pressure Last Admin: 07/10/16 09:56 Dose: 10 mg Ceftriaxone Sodium (Rocephin 2 Gm Ivpb) 100 mls @ 100 mls/hr IVPB DAILY [facility] PRN Reason: Protocol Stop: 07/27/16 10:01 Last Admin: 07/12/16 11:19 Dose: 100 mls/hr Losartan Potassium (Cozaar) 25 mg PO DAILY [facility] Last Admin: 07/13/16 11:10 Dose: 25 mg Metoprolol Tartrate (Lopressor) 50 mg PO 0800,1800 [facility] Last Admin: 07/13/16 11:09 Dose: 50 mg Pantoprazole Sodium (Protonix Ec Tab) 40 mg PO ACB [facility] Last Admin: 07/13/16 06:37 Dose: 40 mg Silver Sulfadiazine (Silvadene 1% 20 Gm) 0 ea TOP DAILY [facility] Last Admin: 07/13/16 11:13 Dose: 1 applic Vitamin A (Vitamin A & D Oint Ud Foilpak) 1 ea TOP BID PRN PRN Reason: chapped lips Last Admin: 07/12/16 21:43 Dose: 1 ea - Labs Labs: 07/13/16 06:25 07/13/16 06:25 PT 13.7 Seconds (9.9-11.8) H 07/13/16 06:25 INR 1.27 (0.93-1.08) H 07/13/16 06:25 APTT 33.2 Seconds (23.7-30.8) H 07/13/16 06:25 - Constitutional Appears: Non-toxic, No Acute Distress - Head Exam Head Exam: NORMAL INSPECTION - ENT Exam ENT Exam: Mucous Membranes Moist - Neck Exam Neck Exam: absent: Lymphadenopathy, Meningismus - Respiratory Exam Respiratory Exam: Decreased Breath Sounds - Cardiovascular Exam Cardiovascular Exam: +S1, +S2 - GI/Abdominal Exam GI & Abdominal Exam: Soft. absent: Tenderness - Extremities Exam Additional comments: much improved swelling and erythema over both lower extremities Assessment and Plan - Assessment and Plan (Free Text) Plan: Assessment severe sepsis S/P shock S/P ventilator-dependent respiratory failure with acute on chronic renal failure due to Group G strep bacteremia, probably secondary to bilateral lower extremities skin and skin structure infection; also with MSSA from the wound cultures; so far no evidence of new infection; patient is clinically improving; he was intubated for hypercarbic respiratory failure and congestion, no evidence of pneumonia currently acute rhabdomyolysis consider acute NSTEMI HTN chronic renal failure dementia obesity with BMI 38 Plan continue Rocephin (day 12 from first negative blood cx); repeat septic work up so far negative, PCT is improving; CXR does not show focal infiltrates; patient should finish 28 days of antibiotics 2D echocardiogram didnot show vegetations will continue to monitor clinically
[2016-07-13] MEDS ORDERED: Albuterol-Ipratrop 3 mg / 0.5 (3 ml) UD IH STA (20:59)
--- NOTE | 2016-07-13 21:01 | CP.PCM.PN ---
Subjective - Date & Time of Evaluation Date of Evaluation: 07/14/16 Time of Evaluation: 02:00 - Subjective Subjective: Patient was seen earlier for wheezing and congestion. Has no complaints. Denies chest pain, sob. This 80 year old white male was admitted with right knee pain, paroxysmal atrial fibrillation. Has PMH of HTN, dementia, Obesity, cataract, herniorrhaphy, nephrolithiasis. Objective - Vital Signs/Intake and Output Vital Signs (last 24 hours): Temp Pulse Resp BP Pulse Ox 100.1 F H 92 H 20 139/66 96 07/13/16 18:00 07/13/16 18:49 07/13/16 18:00 07/13/16 18:49 07/13/16 06:00 - Medications Medications: Current Medications Acetaminophen (Tylenol 325mg Tab) 650 mg PO Q4 PRN PRN Reason: Fever >100.4 F Last Admin: 07/13/16 17:10 Dose: 650 mg Albuterol/Ipratropium (Duoneb 3 Mg/0.5 Mg (3 Ml) Ud) 3 ml IH [id number] [facility] Last Admin: 07/13/16 20:01 Dose: 3 ml Albuterol/Ipratropium (Duoneb 3 Mg/0.5 Mg (3 Ml) Ud) 3 ml IH Q2H PRN PRN Reason: Shortness of Breath Last Admin: 07/13/16 06:42 Dose: 3 ml Albuterol/Ipratropium (Duoneb 3 Mg/0.5 Mg (3 Ml) Ud) 3 ml IH STAT STA Stop: 07/13/16 21:00 Aspirin (Aspirin) 325 mg PO DAILY [facility] Last Admin: 07/13/16 11:09 Dose: 325 mg Clotrimazole (Lotrimin 1%) 0 gm TOP BID [facility] Last Admin: 07/13/16 18:45 Dose: 1 applic Furosemide (Lasix) 80 mg PO DAILY [facility] Last Admin: 07/13/16 11:09 Dose: 80 mg Furosemide (Lasix) 80 mg IVP STAT STA Stop: 07/13/16 21:00 Heparin Sodium (Porcine) (Heparin) 5,000 units SC Q12 [facility] PRN Reason: Protocol Last Admin: 07/12/16 21:43 Dose: 5,000 units Hydralazine HCl (Apresoline) 10 mg IVP Q6 PRN PRN Reason: Systolic Blood Pressure Last Admin: 07/10/16 09:56 Dose: 10 mg Ceftriaxone Sodium (Rocephin 2 Gm Ivpb) 100 mls @ 100 mls/hr IVPB DAILY [facility] PRN Reason: Protocol Stop: 07/27/16 10:01 Last Admin: 07/13/16 15:48 Dose: 100 mls/hr Losartan Potassium (Cozaar) 25 mg PO DAILY [facility] Last Admin: 07/13/16 11:10 Dose: 25 mg Metoprolol Tartrate (Lopressor) 50 mg PO 0800,1800 [facility] Last Admin: 07/13/16 18:49 Dose: 50 mg Pantoprazole Sodium (Protonix Ec Tab) 40 mg PO ACB [facility] Last Admin: 07/13/16 06:37 Dose: 40 mg Silver Sulfadiazine (Silvadene 1% 20 Gm) 0 ea TOP DAILY [facility] Last Admin: 07/13/16 11:13 Dose: 1 applic Vitamin A (Vitamin A & D Oint Ud Foilpak) 1 ea TOP BID PRN PRN Reason: chapped lips Last Admin: 07/12/16 21:43 Dose: 1 ea - Labs Labs: 07/13/16 06:25 07/13/16 06:25 PT 13.7 Seconds (9.9-11.8) H 07/13/16 06:25 INR 1.27 (0.93-1.08) H 07/13/16 06:25 APTT 33.2 Seconds (23.7-30.8) H 07/13/16 06:25 - Constitutional Appears: No Acute Distress - Head Exam Head Exam: ATRAUMATIC, NORMAL INSPECTION, NORMOCEPHALIC - Eye Exam Eye Exam: Normal appearance - ENT Exam ENT Exam: Normal External Ear Exam - Neck Exam Neck Exam: Normal Inspection - Respiratory Exam Respiratory Exam: Rales (+), Wheezes (+) - Cardiovascular Exam Cardiovascular Exam: REGULAR RHYTHM. absent: JVD - GI/Abdominal Exam GI & Abdominal Exam: absent: Distended - Rectal Exam Rectal Exam: Deferred - Extremities Exam Extremities Exam: Pedal Edema (+) - Back Exam Back Exam: NORMAL INSPECTION - Neurological Exam Neurological Exam: Altered - Psychiatric Exam Psychiatric exam: Normal Affect, Normal Mood - Skin Skin Exam: Normal Color Assessment and Plan - Assessment and Plan (Free Text) Assessment: A/P:Wheezing. Chest congestion. CHF? Lasix 80 mg IV stat. Duoneb treatmetn stat. Later on, Nurse Joycelyn told that patient was agitated,tried to scratch her. Has placed him on restraints.
[2016-07-14] MEDS: Albuterol-Ipratrop 3 mg / 0.5 (3 ml) UD IH SCH ×4 (01:44→19:25)
[2016-07-14] MEDS: Albuterol-Ipratrop 3 mg / 0.5 (3 ml) UD IH PRN (05:34)
--- NOTE | 2016-07-14 05:51 | CP.PCM.PN ---
Subjective - Date & Time of Evaluation Date of Evaluation: 07/14/16 Time of Evaluation: 05:48 - Subjective Subjective: Responded to RAPID RESPONSE announcement promptly. It was called because he was hypoxic and had chest congestion. Has sob, denies chest pain,nausea,sweating. Patient had been restless and was trying to pull tubings earlier. This 80 year old white male was admitted with right knee pain, paroxysmal atrial fibrillation. PMH: HTN, dementia, Obesity, cataract, herniorrhaphy, nephrolithiasis. BP 167/83.T97.3*F, 24/min, 110/min, pulse ox 84% 3L/min + breathing treatment. Objective - Vital Signs/Intake and Output Vital Signs (last 24 hours): Temp Pulse Resp BP Pulse Ox 97.7 F 87 24 144/55 L 95 07/14/16 00:01 07/14/16 02:00 07/14/16 00:01 07/13/16 21:07 07/14/16 00:01 - Medications Medications: Current Medications Acetaminophen (Tylenol 325mg Tab) 650 mg PO Q4 PRN PRN Reason: Fever >100.4 F Last Admin: 07/13/16 17:10 Dose: 650 mg Albuterol/Ipratropium (Duoneb 3 Mg/0.5 Mg (3 Ml) Ud) 3 ml IH [id number] [facility] Last Admin: 07/14/16 01:44 Dose: 3 ml Albuterol/Ipratropium (Duoneb 3 Mg/0.5 Mg (3 Ml) Ud) 3 ml IH Q2H PRN PRN Reason: Shortness of Breath Last Admin: 07/14/16 05:34 Dose: 3 ml Aspirin (Aspirin) 325 mg PO DAILY [facility] Last Admin: 07/13/16 11:09 Dose: 325 mg Clotrimazole (Lotrimin 1%) 0 gm TOP BID [facility] Last Admin: 07/13/16 18:45 Dose: 1 applic Furosemide (Lasix) 80 mg PO DAILY [facility] Last Admin: 07/13/16 11:09 Dose: 80 mg Heparin Sodium (Porcine) (Heparin) 5,000 units SC Q12 [facility] PRN Reason: Protocol Last Admin: 07/12/16 21:43 Dose: 5,000 units Hydralazine HCl (Apresoline) 10 mg IVP Q6 PRN PRN Reason: Systolic Blood Pressure Last Admin: 07/10/16 09:56 Dose: 10 mg Ceftriaxone Sodium (Rocephin 2 Gm Ivpb) 100 mls @ 100 mls/hr IVPB DAILY [facility] PRN Reason: Protocol Stop: 07/27/16 10:01 Last Admin: 07/13/16 15:48 Dose: 100 mls/hr Losartan Potassium (Cozaar) 25 mg PO DAILY [facility] Last Admin: 07/13/16 11:10 Dose: 25 mg Metoprolol Tartrate (Lopressor) 50 mg PO 0800,1800 [facility] Last Admin: 07/13/16 18:49 Dose: 50 mg Pantoprazole Sodium (Protonix Ec Tab) 40 mg PO ACB [facility] Last Admin: 07/13/16 06:37 Dose: 40 mg Silver Sulfadiazine (Silvadene 1% 20 Gm) 0 ea TOP DAILY [facility] Last Admin: 07/13/16 11:13 Dose: 1 applic Vitamin A (Vitamin A & D Oint Ud Foilpak) 1 ea TOP BID PRN PRN Reason: chapped lips Last Admin: 07/12/16 21:43 Dose: 1 ea - Labs Labs: 07/13/16 06:25 07/13/16 06:25 PT 13.7 Seconds (9.9-11.8) H 07/13/16 06:25 INR 1.27 (0.93-1.08) H 07/13/16 06:25 APTT 33.2 Seconds (23.7-30.8) H 07/13/16 06:25 - Constitutional Appears: Agitated - Head Exam Head Exam: ATRAUMATIC, NORMAL INSPECTION, NORMOCEPHALIC - Eye Exam Eye Exam: Normal appearance - ENT Exam ENT Exam: Normal External Ear Exam - Neck Exam Neck Exam: Normal Inspection - Respiratory Exam Respiratory Exam: Rales (Bilateral basal.), Wheezes (Bialteral.), Stridor ( Minimal intermittent.) - Cardiovascular Exam Cardiovascular Exam: Tachycardia, REGULAR RHYTHM - GI/Abdominal Exam GI & Abdominal Exam: absent: Distended - Rectal Exam Rectal Exam: Deferred - Extremities Exam Extremities Exam: Pedal Edema (+) - Back Exam Back Exam: NORMAL INSPECTION - Neurological Exam Neurological Exam: Altered - Psychiatric Exam Psychiatric exam: Agitated - Skin Skin Exam: Normal Color Assessment and Plan - Assessment and Plan (Free Text) Assessment: A/P:Hypoxia. Agitation. Wheezing. Pulmonary edema. CHF. CBC,CMP,troponin,ABG. EKG,CXR. Lasix 120 mg IV stat. NTP 1 " to ACW. CC time spent 30 minutes.
[2016-07-14 05:52] LABS: ADD MANUAL DIFF? NO
[2016-07-14 05:56] LABS: BASO # 0.04 K/mm3 (0.0-2.0); BASO % 0.3 % (0.0-3.0); EOS # 0.2 (0.0-0.7); EOS % 1.3 % (1.5-5.0); GRAN # 11.38 (1.4-6.5); GRAN % 79.8 % (50.0-68.0); HEMATOCRIT 30.5 % (42.0-52.0); LYMPH # 1.7 (1.2-3.4); LYMPH % 11.9 % (22.0-35.0); MEAN CORPUSCULAR HEMOGLOBIN 27.6 pg (25.0-35.0); MEAN CORPUSCULAR HGB CONC 32.5 g/dl (31.0-37.0); MEAN PLATELET VOLUME 8.8 fl (7.0-11.0); MONO % 6.7 % (1.0-6.0); PLATELET COUNT 379 10^3/uL (120.0-450.0); RED CELL DISTRIBUTION WIDTH 13.6 % (11.5-14.5)
[2016-07-14 05:57] LABS: ARTERIAL BLOOD GAS PH 7.42 (7.35-7.45)
[2016-07-14 05:58] LABS: WHITE BLOOD COUNT 14.3 10^3/ul (4.5-11.0)
[2016-07-14] MEDS ORDERED: Nitroglycerin 2% Ointment Foilpak UD TOP STA (06:01)
[2016-07-14] MEDS ORDERED: Nitroglycerin 2% Ointment Foilpak UD TOP ONE (06:01)
[2016-07-14 06:09] LABS: ALB/GLOB RATIO 0.7 (1.1-1.8); BILIRUBIN,TOTAL 0.7 mg/dL (0.2-1.3); CALCIUM 10.3 mg/dL (8.4-10.5); POTASSIUM 3.9 mmol/L (3.6-5.0); TOTAL PROTEIN 7.4 g/dL (5.8-8.3)
--- NOTE | 2016-07-14 08:10 | RAD ---
HISTORY: rapid response COMPARISON: 07/09/2016 FINDINGS: LUNGS: Bibasilar subsegmental atelectasis. No avila pulmonary infiltrate. PLEURA: Slight blunting of left costophrenic angle may reflect small pleural effusion. This is unchanged. No right pleural effusion. No pneumothorax. CARDIOVASCULAR: Left PICC catheter unchanged, terminating in the region of the right atrium. Endotracheal tube and nasogastric tube have been removed. OSSEOUS STRUCTURES: No significant abnormalities. VISUALIZED UPPER ABDOMEN: Normal. OTHER FINDINGS: None. IMPRESSION: Bibasilar subsegmental atelectasis. Removal of endotracheal tube and nasogastric tube. Possible small left pleural effusion.
[2016-07-14] MEDS: Pantoprazole 40 mg EC Tab PO SCH (08:42)
--- NOTE | 2016-07-14 08:43 | PN ---
DATE: 07/14/2016 SUBJECTIVE: The patient is currently on BiPAP. He is mildly short of breath, but in no acute distress. PHYSICAL EXAMINATION: VITAL SIGNS: Temperature is 97.6, pulse on the monitor is 92, respiratory rate 20/22, blood pressure 142/68. Oxygen saturation on BiPAP is 100%. HEENT: Normocephalic, atraumatic. No JVD. CARDIOVASCULAR: Systolic ejection murmur at the lower left sternal border. No S3 gallop. LUNGS: Minimal bilateral rhonchi. No wheezing. EXTREMITIES: Mild edema. No cyanosis, no clubbing. Calves are nontender to palpation. GASTROINTESTINAL: Abdomen is soft, nontender, nondistended. Bowel sounds are positive. SKIN: Resolving cellulitis -- lower extremities (anterior aspects). NEUROLOGIC: Limited at the present time. PERTINENT LABORATORY DATA: Chest x-ray was repeated this morning and reviewed. The x-ray is not significantly changed from the previous film. Arterial blood gas was done on nasal cannula. Results are: pH 7.42, pCO2 57, pO2 of 118. IMPRESSION: 1. Status post respiratory failure (multiple episodes). 2. Chronic obstructive pulmonary disease. 3. Bilateral cellulitis. 4. Severe sepsis. 5. Acute myocardial infarction. 6. Renal insufficiency. 7. Mild anemia. PLAN: I did discuss the case with the night nurse at length. Apparently, at approximately 5 a.m. this morning, the patient experienced shortness of breath with oxygen desaturation. The patient was given a stat respiratory treatment and a stat dose of Lasix. The nurse states that he is improved at the time of my examination. I did review the x-ray as above. The x-ray reveals no significant change from the previous films. I have also reviewed the arterial blood gas. There is CO2 retention, but with normal pH. The oxygenation is also quite adequate. On physical exam, the patient remains in mild bronchospasm. I will continue with the current nebulizer treatments and add inhaled steroids this morning. I would continue with the cardiology evaluation as per Dr. Willis. His input is noted. Repeat a.m. labs are pending. Clinical status of the patient is somewhat improved -- compared to last week. However, again, the overall status/prognosis of this elderly patient remains very guarded at best. I will discuss the above with the attending physician. Ken Mancini MD cc: [id number] TT: 07/14/2016 08:42:33 Confirmation # [id number] Dictation # [id number] MTDD
[2016-07-14] MEDS: Silver Sulfadiazine 1% Cream (20 gm) TOP SCH (09:40)
[2016-07-14 10:02] LABS: ARTERIAL BLOOD GAS HCO3 35.5 mmol/L (21-28); ARTERIAL BLOOD GAS O2 CAPACITY 13.2 mL/dl (16-24); ARTERIAL BLOOD GAS PH 7.59 (7.35-7.45); ARTERIAL BLOOD HGB O2 SAT 95.9 % (95.0-98.0); CARBOXYHEMOGLOBIN 1.9 % (0.5-1.5); HHB 1.2 % (0-5); METHEMOGLOBIN 0.9 % (0.0-3.0)
--- NOTE | 2016-07-14 10:08 | PN ---
DATE: 07/14/2016 SUBJECTIVE: The patient had an episode of hypoxia early this morning and had secretions with wheezing. The patie nt was placed on BiPAP, had nebulizer treatment and Lasix, has improved. The patient has no complain ts of any headaches or dizziness. He is confused. The patient's at the bedside. PHYSICAL EXAMINATION: VITAL SIGNS: Temperature is 97.6, pulse of 109, blood pressure 142/60, respirations 20. GENERAL: The patient comfortable, in no acute distress. HEENT: Anicteric sclerae. Moist mucosa. NECK: No JVD or adenopathy. CARDIAC: S1/S2. No murmurs. No rubs. Regular. RESPIRATORY: Clear to auscultation bilaterally. No wheezes, rales, or rhonchi. Good air entry. ABDOMEN: Bowel sounds are positive, soft, nontender, and nondistended. EXTREMITIES: No edema. Has 1+ pulses. LABORATORY DATA: Chest x-ray done shows bibasilar segmental atelectasis. ASSESSMENT: 1. Delirium. 2. Hypoxia, improved. 3. Acute kidney injury, new onset. 4. Non-ST elevation, resolved. 5. Hypophosphatemia, improved. 6. Transaminitis, resolved. 7. Hypernatremia, improved. 8. 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 9. Left arm PICC line. PLAN: The patient is better now than a few hours ago. I spoke to Dr. Rees, the house physician. T he patient has a BiPAP machine on and will be able to take this off as the patient is uncomfortable w ith the machine on. I had a long discussion with the patient's . She is open to the idea of hav ing the patient be on a mild sedative like Xanax. The patient has been placed on Xanax 0.25 mg. The patient's does not wish to have him on some antipsychotics. I did advise her that it may be ne cessary given that he is not allowing for proper treatment, not able to get good physical therapy, no t able to get the patient out of bed into the chair. The patient also scratched the overnight nurse and becomes agitated. He does hallucinate at times. I am concerned that we are not advancing his ca re and giving him proper physical therapy while he is in the hospital because of his confusion. The patient is on nebulizer treatments. He is on losartan for hypertension. The patient is on Lasix megan ly. I will hold the patient's Lasix because of the elevated creatinine. The patient is on Rocephin for antibiotics. Overall, prognosis is guarded. Kolby Last MD cc: [id number] TT: 07/14/2016 10:08:13 Confirmation # [id number] Dictation # [id number] an
--- NOTE | 2016-07-14 10:50 | CP.PCM.PN ---
<Kenji Gonsalez - Last Filed: 07/14/16 10:44> Subjective - Date & Time of Evaluation Date of Evaluation: 07/14/16 Time of Evaluation: 06:00 - Subjective Subjective: 80 y/o male seen at bedside this morning concerning bilateral lower extremity ulcerations. Patient was resting comfortably in bed with 1:1 watch. Patient's family were also present at the time of visit. Dressing to bilateral legs were clean dry and itnact. patient is extubated and able to answer questions. Patient appears in NAD and AAOx3. Objective - Vital Signs/Intake and Output Vital Signs (last 24 hours): Temp Pulse Resp BP Pulse Ox 97.6 F 109 H 20 142/68 100 07/14/16 06:30 07/14/16 09:39 07/14/16 06:30 07/14/16 09:39 07/14/16 06:30 Intake and Output: 07/14/16 07/14/16 06:59 18:59 Intake Total 2320 Balance 2320 - Medications Medications: Current Medications Acetaminophen (Tylenol 325mg Tab) 650 mg PO Q4 PRN PRN Reason: Fever >100.4 F Last Admin: 07/13/16 17:10 Dose: 650 mg Albuterol/Ipratropium (Duoneb 3 Mg/0.5 Mg (3 Ml) Ud) 3 ml IH [id number] [facility] Last Admin: 07/14/16 08:23 Dose: 3 ml Albuterol/Ipratropium (Duoneb 3 Mg/0.5 Mg (3 Ml) Ud) 3 ml IH Q2H PRN PRN Reason: Shortness of Breath Last Admin: 07/14/16 05:34 Dose: 3 ml Alprazolam (Xanax) 0.25 mg PO BID [facility] Stop: 07/21/16 10:01 Aspirin (Aspirin) 325 mg PO DAILY [facility] Last Admin: 07/14/16 09:39 Dose: 325 mg Budesonide (Pulmicort Respules) 0.5 mg IH [id number] [facility] Clotrimazole (Lotrimin 1%) 0 gm TOP BID [facility] Last Admin: 07/13/16 18:45 Dose: 1 applic Heparin Sodium (Porcine) (Heparin) 5,000 units SC Q12 [facility] PRN Reason: Protocol Last Admin: 07/12/16 21:43 Dose: 5,000 units Hydralazine HCl (Apresoline) 10 mg IVP Q6 PRN PRN Reason: Systolic Blood Pressure Last Admin: 07/10/16 09:56 Dose: 10 mg Ceftriaxone Sodium (Rocephin 2 Gm Ivpb) 100 mls @ 100 mls/hr IVPB DAILY [facility] PRN Reason: Protocol Stop: 07/27/16 10:01 Last Admin: 07/14/16 09:40 Dose: 100 mls/hr Losartan Potassium (Cozaar) 25 mg PO DAILY [facility] Last Admin: 07/14/16 09:39 Dose: 25 mg Metoprolol Tartrate (Lopressor) 50 mg PO 0800,1800 [facility] Last Admin: 07/14/16 08:42 Dose: 50 mg Pantoprazole Sodium (Protonix Ec Tab) 40 mg PO ACB [facility] Last Admin: 07/14/16 08:42 Dose: 40 mg Silver Sulfadiazine (Silvadene 1% 20 Gm) 0 ea TOP DAILY [facility] Last Admin: 07/14/16 09:40 Dose: 1 applic Vitamin A (Vitamin A & D Oint Ud Foilpak) 1 ea TOP BID PRN PRN Reason: chapped lips Last Admin: 07/12/16 21:43 Dose: 1 ea - Labs Labs: 07/14/16 05:45 07/14/16 05:45 PT 13.7 Seconds (9.9-11.8) H 07/13/16 06:25 INR 1.27 (0.93-1.08) H 07/13/16 06:25 APTT 33.2 Seconds (23.7-30.8) H 07/13/16 06:25 - Constitutional Appears: Well, No Acute Distress - Extremities Exam Additional comments: Bilateral lower extremities exam DERM: Two Superficial ulcerations noted to Right leg located to anterior aspect of wright and one on lateral aspect of leg, each measuring 2cm x 2cm x 0.1cm. No drainage noted, no purulent discharge noted. No erythema noted around the wound. No sign of acute infection is noted. One superficial ulceration noted to Left leg Constantine-lateral aspect measuring 2cmx 2cm x 0.1cm with granular base. No drainage noted. No pus noted. No mal- odor noted. No erythema is ntoed around the wound. No sign of infection is noted. VASC: nonpalpable pedal pulses bilaterally, TG wnl, CFT < 3 sec to all digits NEURO: grossly diminished ORTHO: no pain on palpation of foot or legs bilaterally - Neurological Exam Neurological Exam: Alert, Awake - Psychiatric Exam Psychiatric exam: Normal Affect - Skin Skin Exam: Normal Color, Warm Assessment and Plan - Assessment and Plan (Free Text) Assessment: 80 y/o male presents with superficial ulcerations to bilateral lower extremity Plan: patient evaluated and seen at bedside labs and vitals reviewed continue IV abx applied allevyn heel pads bilaterally applied multipodus offloading boots to patients heels patient to continue wearing boots in bed at all times podiatry will continue to monitor while patient remains in house <Luis Carlos Almendarez - Last Filed: 07/16/16 08:15> Objective - Vital Signs/Intake and Output Vital Signs (last 24 hours): Temp Pulse Resp BP Pulse Ox 97.3 F L 85 25 H 144/69 99 07/16/16 07:55 07/16/16 07:55 07/16/16 07:55 07/16/16 07:55 07/16/16 07:55 Intake and Output: 07/16/16 07/16/16 06:59 18:59 Intake Total 120 Balance 120 - Medications Medications: Current Medications Acetaminophen (Tylenol 325mg Tab) 650 mg PO Q4 PRN PRN Reason: Fever >100.4 F Last Admin: 07/13/16 17:10 Dose: 650 mg Albuterol/Ipratropium (Duoneb 3 Mg/0.5 Mg (3 Ml) Ud) 3 ml IH [id number] [facility] Last Admin: 07/16/16 07:12 Dose: 3 ml Albuterol/Ipratropium (Duoneb 3 Mg/0.5 Mg (3 Ml) Ud) 3 ml IH Q2H PRN PRN Reason: Shortness of Breath Last Admin: 07/14/16 05:34 Dose: 3 ml Aspirin (Aspirin) 325 mg PO DAILY [facility] Last Admin: 07/15/16 10:32 Dose: 325 mg Budesonide (Pulmicort Respules) 0.5 mg IH [id number] [facility] Last Admin: 07/16/16 07:12 Dose: 0.5 mg Clotrimazole (Lotrimin 1%) 0 gm TOP BID [facility] Last Admin: 07/15/16 19:51 Dose: Not Given Heparin Sodium (Porcine) (Heparin) 5,000 units SC Q12 [facility]AH PRN Reason: Protocol Last Admin: 07/12/16 21:43 Dose: 5,000 units Hydralazine HCl (Apresoline) 10 mg IVP Q6 PRN PRN Reason: Systolic Blood Pressure Last Admin: 07/10/16 09:56 Dose: 10 mg Ceftriaxone Sodium (Rocephin 2 Gm Ivpb) 100 mls @ 100 mls/hr IVPB DAILY [facility] PRN Reason: Protocol Stop: 07/27/16 10:01 Last Admin: 07/15/16 10:35 Dose: 100 mls/hr Losartan Potassium (Cozaar) 25 mg PO DAILY [facility] Last Admin: 07/15/16 10:32 Dose: 25 mg Methylprednisolone (Solu-Medrol) 40 mg IVP Q8H [facility] Last Admin: 07/16/16 03:04 Dose: 40 mg Metoprolol Tartrate (Lopressor) 50 mg PO 0800,1800 [facility] Last Admin: 07/15/16 19:51 Dose: Not Given Pantoprazole Sodium (Protonix Ec Tab) 40 mg PO ACB [facility] Last Admin: 07/15/16 08:24 Dose: 40 mg Risperidone (Risperdal Tab) 0.5 mg PO [facility] PRN; Protocol PRN Reason: Agitation Silver Sulfadiazine (Silvadene 1% 20 Gm) 0 ea TOP DAILY [facility] Last Admin: 07/15/16 10:33 Dose: 1 applic Vitamin A (Vitamin A & D Oint Ud Foilpak) 1 ea TOP BID PRN PRN Reason: chapped lips Last Admin: 07/15/16 10:32 Dose: 1 ea - Labs Labs: 07/16/16 06:47 07/16/16 06:47 PT 13.7 Seconds (9.9-11.8) H 07/13/16 06:25 INR 1.27 (0.93-1.08) H 07/13/16 06:25 APTT 33.2 Seconds (23.7-30.8) H 07/13/16 06:25 Attending/Attestation - Attestation I have personally seen and examined this patient.: Yes I have fully participated in the care of the patient.: Yes I have reviewed all pertinent clinical information, including history, physical exam and plan: Yes
--- NOTE | 2016-07-14 12:37 | PN ---
DATE: 07/14/2016 HISTORY OF PRESENT ILLNESS: The patient is an 80-year-old male who is currently being treated on the medical service for hypoxia which is improved, acute kidney injury, recent non-ST wave IA. The natty ent also has severe delirium. He has had recent visual hallucinations. He is quite confused. He spencer s a grossly normal CT scan of the head with atrophy in the frontoparietal region. I attempted to int erview the patient. The patient's was at bedside. She refuses to have me interview her and she also has been refusing patient to receive any antipsychotic medicine even though I tried to explain at length the rationale for such. Therefore, due to 's adamant decision, I can no longer evaluate this patient and treat this patient. Should his change her mind, I will gladly reeval uate the patient. Julian Lim MD cc: [id number] TT: 07/14/2016 12:37:03 Confirmation # [id number] Dictation # [id number]
[2016-07-14] MEDS: Clotrimazole 1% Cream(30 gm) TOP SCH ×2 (17:46→18:00)
--- NOTE | 2016-07-14 17:55 | CARD ---
APPROVED REPORT EKG Measurement Heart [id number] <Conclusion> Sinus tachycardia with occasional premature ventricular complexes Right bundle branch block Minimal voltage criteria for LVH, may be normal variant Inferior infarct, age undetermined Abnormal ECG
[2016-07-14] MEDS: Budesonide 0.5 mg/2 ml Inhal Susp UD IH SCH (19:25)
--- NOTE | 2016-07-14 20:37 | CP.PCM.PN ---
Subjective - Date & Time of Evaluation Date of Evaluation: 07/14/16 Time of Evaluation: 08:50 - Subjective Subjective: Comfortable in bed, not in distress, no fevers overnight, no pain in the legs. Objective - Vital Signs/Intake and Output Vital Signs (last 24 hours): Temp Pulse Resp BP Pulse Ox 98.5 F 88 18 163/60 H 100 07/14/16 12:00 07/14/16 19:06 07/14/16 12:00 07/14/16 19:06 07/14/16 06:30 Intake and Output: 07/14/16 07/15/16 18:59 06:59 Intake Total 1080 Balance 1080 - Medications Medications: Current Medications Acetaminophen (Tylenol 325mg Tab) 650 mg PO Q4 PRN PRN Reason: Fever >100.4 F Last Admin: 07/13/16 17:10 Dose: 650 mg Albuterol/Ipratropium (Duoneb 3 Mg/0.5 Mg (3 Ml) Ud) 3 ml IH [id number] [facility] Last Admin: 07/14/16 19:25 Dose: 3 ml Albuterol/Ipratropium (Duoneb 3 Mg/0.5 Mg (3 Ml) Ud) 3 ml IH Q2H PRN PRN Reason: Shortness of Breath Last Admin: 07/14/16 05:34 Dose: 3 ml Alprazolam (Xanax) 0.25 mg PO BID [facility] Stop: 07/21/16 10:01 Last Admin: 07/14/16 20:04 Dose: 0.25 mg Aspirin (Aspirin) 325 mg PO DAILY [facility] Last Admin: 07/14/16 09:39 Dose: 325 mg Budesonide (Pulmicort Respules) 0.5 mg IH [id number] [facility] Last Admin: 07/14/16 19:25 Dose: 0.5 mg Clotrimazole (Lotrimin 1%) 0 gm TOP BID [facility] Last Admin: 07/14/16 18:00 Dose: 1 applic Heparin Sodium (Porcine) (Heparin) 5,000 units SC Q12 [facility] PRN Reason: Protocol Last Admin: 07/12/16 21:43 Dose: 5,000 units Hydralazine HCl (Apresoline) 10 mg IVP Q6 PRN PRN Reason: Systolic Blood Pressure Last Admin: 07/10/16 09:56 Dose: 10 mg Ceftriaxone Sodium (Rocephin 2 Gm Ivpb) 100 mls @ 100 mls/hr IVPB DAILY [facility] PRN Reason: Protocol Stop: 07/27/16 10:01 Last Admin: 07/14/16 09:40 Dose: 100 mls/hr Losartan Potassium (Cozaar) 25 mg PO DAILY [facility] Last Admin: 07/14/16 09:39 Dose: 25 mg Metoprolol Tartrate (Lopressor) 50 mg PO 0800,1800 [facility] Last Admin: 07/14/16 19:06 Dose: 50 mg Pantoprazole Sodium (Protonix Ec Tab) 40 mg PO ACB [facility] Last Admin: 07/14/16 08:42 Dose: 40 mg Silver Sulfadiazine (Silvadene 1% 20 Gm) 0 ea TOP DAILY [facility] Last Admin: 07/14/16 09:40 Dose: 1 applic Vitamin A (Vitamin A & D Oint Ud Foilpak) 1 ea TOP BID PRN PRN Reason: chapped lips Last Admin: 07/12/16 21:43 Dose: 1 ea - Labs Labs: 07/14/16 05:45 07/14/16 05:45 PT 13.7 Seconds (9.9-11.8) H 07/13/16 06:25 INR 1.27 (0.93-1.08) H 07/13/16 06:25 APTT 33.2 Seconds (23.7-30.8) H 07/13/16 06:25 - Constitutional Appears: Non-toxic, No Acute Distress - Head Exam Head Exam: NORMAL INSPECTION - ENT Exam ENT Exam: Mucous Membranes Moist - Neck Exam Neck Exam: absent: Lymphadenopathy, Meningismus - Respiratory Exam Respiratory Exam: Decreased Breath Sounds - Cardiovascular Exam Cardiovascular Exam: +S1, +S2 - GI/Abdominal Exam GI & Abdominal Exam: Soft. absent: Tenderness Assessment and Plan - Assessment and Plan (Free Text) Plan: Assessment severe sepsis S/P shock S/P ventilator-dependent respiratory failure with acute on chronic renal failure due to Group G strep bacteremia, probably secondary to bilateral lower extremities skin and skin structure infection; also with MSSA from the wound cultures; so far no evidence of new infection; patient is clinically improving; he was intubated for hypercarbic respiratory failure and congestion, no evidence of pneumonia currently acute rhabdomyolysis consider acute NSTEMI HTN chronic renal failure dementia obesity with BMI 38 Plan continue Rocephin (day 13 from first negative blood cx); repeat septic work up so far negative, PCT is improving; CXR does not show focal infiltrates; patient should finish 28 days of antibiotics 2D echocardiogram didnot show vegetations will continue to monitor clinically
--- NOTE | 2016-07-15 00:33 | CP.PCM.PN ---
Subjective - Date & Time of Evaluation Date of Evaluation: 07/15/16 Time of Evaluation: 00:33 - Subjective Subjective: Patient was seen at bedside .He was restless.Spat on nurse, trying to pull tubing . Awake, alert.At one point he said he had chest pain. Denied sob. Admitted with knee pain, had NSTEMI. HTN, dementia, Obesity, cataract, herniorrhaphy, nephrolithiasis. Objective - Vital Signs/Intake and Output Vital Signs (last 24 hours): Temp Pulse Resp BP Pulse Ox 99.0 F 95 H 20 140/54 L 100 07/15/16 00:00 07/15/16 00:00 07/15/16 00:00 07/15/16 00:00 07/14/16 06:30 Intake and Output: 07/14/16 07/15/16 18:59 06:59 Intake Total 1080 Output Total 200 Balance 1080 -200 - Medications Medications: Current Medications Acetaminophen (Tylenol 325mg Tab) 650 mg PO Q4 PRN PRN Reason: Fever >100.4 F Last Admin: 07/13/16 17:10 Dose: 650 mg Albuterol/Ipratropium (Duoneb 3 Mg/0.5 Mg (3 Ml) Ud) 3 ml IH [id number] [facility] Last Admin: 07/14/16 19:25 Dose: 3 ml Albuterol/Ipratropium (Duoneb 3 Mg/0.5 Mg (3 Ml) Ud) 3 ml IH Q2H PRN PRN Reason: Shortness of Breath Last Admin: 07/14/16 05:34 Dose: 3 ml Alprazolam (Xanax) 0.25 mg PO BID [facility] Stop: 07/21/16 10:01 Last Admin: 07/14/16 20:04 Dose: 0.25 mg Aspirin (Aspirin) 325 mg PO DAILY [facility] Last Admin: 07/14/16 09:39 Dose: 325 mg Budesonide (Pulmicort Respules) 0.5 mg IH [id number] [facility] Last Admin: 07/14/16 19:25 Dose: 0.5 mg Clotrimazole (Lotrimin 1%) 0 gm TOP BID [facility] Last Admin: 07/14/16 18:00 Dose: 1 applic Heparin Sodium (Porcine) (Heparin) 5,000 units SC Q12 [facility] PRN Reason: Protocol Last Admin: 07/12/16 21:43 Dose: 5,000 units Hydralazine HCl (Apresoline) 10 mg IVP Q6 PRN PRN Reason: Systolic Blood Pressure Last Admin: 07/10/16 09:56 Dose: 10 mg Ceftriaxone Sodium (Rocephin 2 Gm Ivpb) 100 mls @ 100 mls/hr IVPB DAILY [facility] PRN Reason: Protocol Stop: 07/27/16 10:01 Last Admin: 07/14/16 09:40 Dose: 100 mls/hr Losartan Potassium (Cozaar) 25 mg PO DAILY [facility] Last Admin: 07/14/16 09:39 Dose: 25 mg Metoprolol Tartrate (Lopressor) 50 mg PO 0800,1800 [facility] Last Admin: 07/14/16 19:06 Dose: 50 mg Pantoprazole Sodium (Protonix Ec Tab) 40 mg PO ACB [facility] Last Admin: 07/14/16 08:42 Dose: 40 mg Silver Sulfadiazine (Silvadene 1% 20 Gm) 0 ea TOP DAILY [facility] Last Admin: 07/14/16 09:40 Dose: 1 applic Vitamin A (Vitamin A & D Oint Ud Foilpak) 1 ea TOP BID PRN PRN Reason: chapped lips Last Admin: 07/12/16 21:43 Dose: 1 ea - Labs Labs: 07/14/16 05:45 07/14/16 05:45 PT 13.7 Seconds (9.9-11.8) H 07/13/16 06:25 INR 1.27 (0.93-1.08) H 07/13/16 06:25 APTT 33.2 Seconds (23.7-30.8) H 07/13/16 06:25 - Constitutional Appears: Agitated - Head Exam Head Exam: ATRAUMATIC, NORMAL INSPECTION, NORMOCEPHALIC Additional comments: Obese. - Eye Exam Eye Exam: Normal appearance - ENT Exam ENT Exam: Normal External Ear Exam - Neck Exam Neck Exam: Normal Inspection - Respiratory Exam Respiratory Exam: Wheezes (+ bilateral.), NORMAL BREATHING PATTERN - GI/Abdominal Exam GI & Abdominal Exam: absent: Distended - Rectal Exam Rectal Exam: Deferred - Neurological Exam Neurological Exam: Altered (mental status.) - Psychiatric Exam Psychiatric exam: Agitated - Skin Skin Exam: Normal Color Assessment and Plan - Assessment and Plan (Free Text) Assessment: A/P:Agitation. Restlessness. AMS. Obesity. S/P NSTEMI. Dementia. Wrist restraint was applied. Geodon 20 mg IM was given. Resperidol 0.5 mg PO was ordered.
[2016-07-15] MEDS: Albuterol-Ipratrop 3 mg / 0.5 (3 ml) UD IH SCH ×4 (01:00→20:23)
[2016-07-15] MEDS: Budesonide 0.5 mg/2 ml Inhal Susp UD IH SCH ×2 (08:00→20:23)
[2016-07-15 08:02] LABS: ADD MANUAL DIFF? NO
[2016-07-15 08:08] LABS: BASO # 0.02 K/mm3 (0.0-2.0); BASO % 0.2 % (0.0-3.0); EOS # 0.2 (0.0-0.7); EOS % 1.9 % (1.5-5.0); GRAN # 7.42 (1.4-6.5); GRAN % 78.9 % (50.0-68.0); HEMATOCRIT 26.4 % (42.0-52.0); LYMPH % 10.1 % (22.0-35.0); MEAN CELL VOLUME 85.4 fL (80.0-105.0); MEAN CORPUSCULAR HEMOGLOBIN 27.5 pg (25.0-35.0); MEAN CORPUSCULAR HGB CONC 32.2 g/dl (31.0-37.0); MONO # 0.8 (0.1-0.6); MONO % 8.9 % (1.0-6.0); PLATELET COUNT 316 10^3/uL (120.0-450.0); RED CELL DISTRIBUTION WIDTH 13.9 % (11.5-14.5); WHITE BLOOD COUNT 9.4 10^3/ul (4.5-11.0)
[2016-07-15] MEDS: Pantoprazole 40 mg EC Tab PO SCH (08:24)
[2016-07-15 08:33] LABS: ALB/GLOB RATIO 0.7 (1.1-1.8); BILIRUBIN,TOTAL 0.6 mg/dL (0.2-1.3); CALCIUM 9.8 mg/dL (8.4-10.5); POTASSIUM 3.6 mmol/L (3.6-5.0); TOTAL PROTEIN 6.7 g/dL (5.8-8.3)
--- NOTE | 2016-07-15 08:48 | PN ---
DATE: 07/15/2016 The patient has no complaints of any chest pain, no shortness of breath, no headaches. He had confusion overnight. Temperature is 99, pulse is 76, blood pressure is 140/54, respirations 20. PHYSICAL EXAMINATION: GENERAL: The patient comfortable, in no acute distress. HEENT: Anicteric sclerae. Moist mucosa. NECK: No JVD or adenopathy. CARDIAC: S1/S2. No murmurs. No rubs. Regular. RESPIRATORY: Clear to auscultation bilaterally. No wheezes, rales, or rhonchi. Good air entry. ABDOMEN: Bowel sounds are positive, soft, nontender, and nondistended. EXTREMITIES: No edema. Has 1+ pulses. LABS: Creatinine is 1.6, white count was 14.3 last. ASSESSMENT: 1. Delirium. 2. Hypoxia, improved. 3. Acute kidney injury. 4. Non-ST elevation myocardial infarction, resolved. 5. Hypophosphatemia, resolved. 6. Transaminitis, resolved. 7. Hypernatremia, resolved. 8. 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 9. Left arm PICC line. 10. Sepsis, improved. PLAN: The patient is currently comfortable. He continues to be agitated. The patient's family is n ot allowing for psychiatric comanagement of this patient's delirium and agitation. He continues to b e difficult to manage. The patient had scratched the nurse 2 nights ago. Last night the patient spa t on the nurse. Overnight the patient was started on Xanax yesterday. He is on Rocephin for antibiotic. He is recei ving Tylenol. He is on Protonix daily. The patient is on metoprolol, he is receiving heparin for DV T prophylaxis. He is on albuterol. The patient is on aspirin for his CO. The physical therapist tried to work with the patient. The patient was confused. He needs maximal a ssistance of 2 people. He would only take a few steps. He was placed in the chair. He continues to decline, and has difficulty, and is severely deconditioned. Kolby Last MD cc: [id number] TT: 07/15/2016 08:47:23 Confirmation # [id number] Dictation # [id number] jn
--- NOTE | 2016-07-15 09:43 | PN ---
DATE: 07/15/2016 SUBJECTIVE: The patient appears comfortable this morning. He is mildly short of breath, but in no acute distress. VITALS: Temperature is 99.4, pulse 90, respirations 20/22, blood pressure 116/ 58. Oxygen saturation on nasal cannula is 95%. HENT: Normocephalic, atraumatic. No JVD. CARDIOVASCULAR: Systolic ejection murmur at the lower left sternal border. No S3 gallop. LUNGS: Minimal/less rhonchi. No wheezing. EXTREMITIES: Mild edema. No cyanosis, no clubbing. Calves are nontender to palpation. GASTROINTESTINAL: Abdomen is soft, nontender, nondistended. Bowel sounds are positive. SKIN: Resolving cellulitis -- lower extremities (anterior aspects). NEUROLOGIC EXAMINATION: Limited at the present time. IMPRESSION: 1. Status post respiratory failure (multiple episodes). 2. Chronic obstructive pulmonary disease. 3. Bilateral cellulitis. 4. Severe sepsis. 5. Acute myocardial infarction. 6. Renal insufficiency. 7. Mild anemia. PLAN: The patient appears comfortable this morning. He is mildly short of breath at rest, but certainly in no acute distress. I did discuss the case with the night nurse at length. The night nurse stated that the patient had a much better night last night. On physical exam, there is less bronchospasm noted. I will continue with the current nebulizer treatments and inhaled steroids for now. The patient remains on antibiotic therapy -- as per infectious disease. I would continue with the cardiology evaluation and treatment. Input by Dr. Willis is noted. Clinical status of the patient is certainly improved this morning. However, again, the overall status/prognosis of this patient remains very guarded. I will discuss the above with the attending physician. Ken Mancini MD cc: [id number] TT: 07/15/2016 09:43:35 Confirmation # [id number] Dictation # [id number] jn CODY
[2016-07-15] MEDS: Vitamins A & D Oint UD Foilpak TOP PRN (10:32)
[2016-07-15] MEDS: Silver Sulfadiazine 1% Cream (20 gm) TOP SCH (10:33)
[2016-07-15] MEDS: Clotrimazole 1% Cream(30 gm) TOP SCH ×2 (10:34→19:51)
--- NOTE | 2016-07-15 11:36 | PN ---
DATE: 07/15/2016 SUBJECTIVE: The patient is lying in bed. He is lethargic, but arousable. Has been receiving Geodon and Risperdal for agitation. OBJECTIVE: VITAL SIGNS: Blood pressure 116/58, pulse 92, respiratory rate 24, and temperature 99.4 axillary. LUNGS: Show a few scattered crepitations bilaterally. HEART: Regular rate and rhythm. ABDOMEN: Soft, nontender, bowel sounds are normoactive. EXTREMITIES: With dependent edema bilaterally. NEUROLOGIC: The patient is lethargic, arousable, without focal sensory or motor deficits. SKIN: Warm and dry. LABORATORY DATA: WBC is 9.4, hemoglobin 8.5, hematocrit 26.4. Sodium 139, potassium 3.6, chloride 9 4, CO2 of 38, BUN 11, creatinine 2.0, glucose 128. IMPRESSION: 1. Hypertension, hypertensive cardiovascular disease and congestive heart failure. 2. Coronary artery disease, status post [id number] elevation myocardial infarction. 3. Status post acute rhabdomyolysis with acute renal failure superimposed on mild chronic kidney dis ease, improved. 4. Status post sepsis, presumed secondary to cellulitis of the lower extremities with chronic venous stasis ulcers. 5. Paroxysmal atrial fibrillation with intermittent rapid ventricular response. 6. Dementia with superimposed delirium secondary to underlying medical condition. 7. Immobility secondary to severe degenerative joint disease with obesity and deconditioning. 8. Anemia, possibly secondary to repeated phlebotomy to rule out gastrointestinal bleed. 9. Hyperglycemia. PLAN: The patient's transfer to a subacute unit has been canceled due to acute shortness of breath. He is receiving IV antibiotics, and nebulizer treatments as well as budesonide inhaled. Continue pu lmonary followup with Dr. Mancini, cardiology followup and infectious disease followup. Would advise cautious use of neuroleptics; patient at risk for aspiration. Out of bed as tolerated. Social work for discharge planning. Leonid aClderón JD, MD cc: [id number] TT: 07/15/2016 11:35:38 Confirmation # [id number] Dictation # [id number] samuel
--- NOTE | 2016-07-15 15:26 | CON ---
DATE: 07/15/2016 HISTORY OF PRESENT ILLNESS: Shortly, the patient is an 80-year-old male with multiple medi sekou issues, hypertension, falls patient also had sepsis, status post septic shock, status post ventil ator dependent respiratory failure with acute on chronic renal failure. The patient also has group G step bacteremia. The patient also has bilateral lower extremities skin infected. The patient had r habdomyolsis, rule out acute N-STEMI, hypertension, chronic renal failure, possible dementia, obesity . The patient was admitted on the medical floor for the above named problems. Psych consult was sekou led initially for evaluation of altered mental status as well as medication management for that. Natividad orta, patient was seen by Dr. Lim. The patient's family was not in agreement with the treatment plan offered by psychiatry. A second opinion was called. This engineering writer evaluated the patient today a t the morning time. The patient presented to be confused, there is no option to have a meaningful co nversation. The patient was just ____, seems to have difficulty to breath, at the same time, oxygen saturation was 95. Collateral information was obtained from the nursing staff. The patient had epis odes of screaming, yelling, trying to pull his IV. The patient also needed to be in restraints. Thi s engineering writer gave a call to patient's , Sofia, had prolonged conversation with her about treatmen t options. The patient's was educated about possible diagnosis of delirium which is related to multiple medical issues, sepsis. The patient's verbalized understanding. The patient's de nied any memory problems of the patient anytime recently. The patient was driving up until recently, does not have any memory problems, but as per he is "stubborn". After education about antipsyc hotic medication and diagnosis, the patient's was in agreement to start small dose of antipsycho tic medication for the patient. Risks, benefits and alternatives were explained to the patient's wif e, she was in agreement with that. This engineering writer reviewed vital signs. Temperature 97, pulse is 86, blood pressure 127/97, respirations 1 9, oxygen saturation is 95. MEDICATIONS: Reviewed. The patient is on Tylenol, DuoNeb. The patient was started on Xanax 0.5 mg twice a day scheduled, aspirin 325 mg daily, Pulmicort. The patient is on IV antibiotics Rocephin 2 grams daily, clotrimazole, heparin, hydralazine, Cozaar, Lopressor twice a day 50 mg, Protonix. This engineering writer also started patient on Risperdal liquid form. The patient was provided with stat dose of 0. 5 mg of Risperdal earlier today. The patient also is on Silvadene and vitamin A. LABORATORY DATA: Reviewed. WBC 9.4 today. Hemoglobin and hematocrit 8.5 and 26.4. Granulocytes 7. 42. Chemistry reviewed. Troponin was 0.14, chloride 94, carbon dioxide 38. Toxicology of vancomyci n trough was 15.7. Microbiology is reviewed. Reports reviewed. Discussed with the attending, Dr. Last. PAST PSYCHIATRIC HISTORY: None. MENTAL STATUS EXAMINATION: The patient appears to be confused, communicated mostly with ____ . The patient is mumbling something, intermittent eye contact. Speech was incoherent. Thought process is disorganized. This engineering writer was not able to assess thought content. Insight and judgment are impaired at present moment. Impulses are not predictable. IMPRESSION: The patient is in acute delirium stage, which is related to sepsis. Also, status post a cute rhabdomyolysis, coronary artery disease status post non-ST segment elevation myocardial infarcti on, hypertension. Per medical team patient has history of dementia, but as per , the patient had good memory. Immobility due to degenerative joint disease. PLAN: Continue current management. Continue current medications. This engineering writer implemented Risperdal 0.5 mg liquid form twice a day at the morning time and the nighttime. Continue Xanax. Continue all of current medications. The patient is seen by ID team, also nephrology, also pulmonology and podia try. Prolonged conversation took place today with the patient's , Sofia. Risks, benefits, a lternatives of the medication discussed with the patient's . Dr. Black will follow patient up ov er the weekend to make sure that patient is improving. Should you have any questions, give me a call back. Thank you very much for letting me participate in care of your patient. Barbara Grissom MD cc: [phone] TT: 07/15/2016 15:26:09 Confirmation # [id number] Dictation # [id number] jn
--- NOTE | 2016-07-15 16:37 | CP.PCM.PN ---
<Kenji Gonsalez - Last Filed: 07/15/16 16:32> Subjective - Date & Time of Evaluation Date of Evaluation: 07/15/16 Time of Evaluation: 10:00 - Subjective Subjective: 80 y/o male patient was seen at bedside this morning concerning multiple superficial bilateral lower extremity ulcerations. Patient was resting comfortably in bed this morning. Dressing to bilateral legs were clean dry and intact. patient is extubated and able to answer questions. Patient appears in NAD and AAOx3. Objective - Vital Signs/Intake and Output Vital Signs (last 24 hours): Temp Pulse Resp BP Pulse Ox 97 F L 63 19 127/97 H 95 07/15/16 12:00 07/15/16 14:00 07/15/16 12:00 07/15/16 12:00 07/15/16 06:00 Intake and Output: 07/15/16 07/15/16 06:59 18:59 Intake Total 360 120 Output Total 200 Balance 160 120 - Medications Medications: Current Medications Acetaminophen (Tylenol 325mg Tab) 650 mg PO Q4 PRN PRN Reason: Fever >100.4 F Last Admin: 07/13/16 17:10 Dose: 650 mg Albuterol/Ipratropium (Duoneb 3 Mg/0.5 Mg (3 Ml) Ud) 3 ml IH [id number] [facility] Last Admin: 07/15/16 13:47 Dose: 3 ml Albuterol/Ipratropium (Duoneb 3 Mg/0.5 Mg (3 Ml) Ud) 3 ml IH Q2H PRN PRN Reason: Shortness of Breath Last Admin: 07/14/16 05:34 Dose: 3 ml Alprazolam (Xanax) 0.5 mg PO BID [facility] Stop: 07/21/16 10:01 Last Admin: 07/15/16 10:41 Dose: 0.5 mg Aspirin (Aspirin) 325 mg PO DAILY [facility] Last Admin: 07/15/16 10:32 Dose: 325 mg Budesonide (Pulmicort Respules) 0.5 mg IH [id number] [facility] Last Admin: 07/15/16 08:00 Dose: 0.5 mg Clotrimazole (Lotrimin 1%) 0 gm TOP BID [facility] Last Admin: 07/15/16 10:34 Dose: 1 applic Heparin Sodium (Porcine) (Heparin) 5,000 units SC Q12 [facility] PRN Reason: Protocol Last Admin: 07/12/16 21:43 Dose: 5,000 units Hydralazine HCl (Apresoline) 10 mg IVP Q6 PRN PRN Reason: Systolic Blood Pressure Last Admin: 07/10/16 09:56 Dose: 10 mg Ceftriaxone Sodium (Rocephin 2 Gm Ivpb) 100 mls @ 100 mls/hr IVPB DAILY [facility] PRN Reason: Protocol Stop: 07/27/16 10:01 Last Admin: 07/15/16 10:35 Dose: 100 mls/hr Losartan Potassium (Cozaar) 25 mg PO DAILY [facility] Last Admin: 07/15/16 10:32 Dose: 25 mg Metoprolol Tartrate (Lopressor) 50 mg PO 0800,1800 [facility] Last Admin: 07/15/16 08:24 Dose: 50 mg Pantoprazole Sodium (Protonix Ec Tab) 40 mg PO ACB [facility] Last Admin: 07/15/16 08:24 Dose: 40 mg Risperidone (Risperdal Tab) 0.5 mg PO AMHS [facility] PRN Reason: Protocol Silver Sulfadiazine (Silvadene 1% 20 Gm) 0 ea TOP DAILY [facility] Last Admin: 07/15/16 10:33 Dose: 1 applic Vitamin A (Vitamin A & D Oint Ud Foilpak) 1 ea TOP BID PRN PRN Reason: chapped lips Last Admin: 07/15/16 10:32 Dose: 1 ea - Labs Labs: 07/15/16 07:45 07/15/16 07:45 PT 13.7 Seconds (9.9-11.8) H 07/13/16 06:25 INR 1.27 (0.93-1.08) H 07/13/16 06:25 APTT 33.2 Seconds (23.7-30.8) H 07/13/16 06:25 - Constitutional Appears: Well, Non-toxic, No Acute Distress - Extremities Exam Additional comments: Bilateral lower extremities exam DERM: Two Superficial ulcerations noted to Left leg located to anterior aspect of wright and one on lateral aspect of leg, each measuring 2cm x 2cm x 0.1cm. No drainage noted, no purulent discharge noted. No erythema noted around the wound. No sign of acute infection is noted. One superficial ulceration noted to Right leg Constantine-lateral aspect measuring 2cmx 2cm x 0.1cm with granular base. No drainage noted. No pus noted. No mal- odor noted. No erythema is noted around the wound. No sign of infection is noted. VASC: nonpalpable pedal pulses bilaterally, TG wnl, CFT < 3 sec to all digits NEURO: grossly diminished ORTHO: no pain on palpation of foot or legs bilaterally - Neurological Exam Neurological Exam: Alert, Awake, Oriented x3 - Psychiatric Exam Psychiatric exam: Normal Affect, Normal Mood - Skin Skin Exam: Normal Color, Warm Assessment and Plan - Assessment and Plan (Free Text) Assessment: 80 y/o male presents with superficial ulcerations to bilateral lower extremity Plan: patient evaluated and seen at bedside labs and vitals reviewed continue IV abx applied allevyn heel pads bilaterally applied multipodus offloading boots to patients heels patient to continue wearing boots in bed at all times podiatry will continue to monitor while patient remains in house <Luis Carlos Almendarez - Last Filed: 07/16/16 08:18> Objective - Vital Signs/Intake and Output Vital Signs (last 24 hours): Temp Pulse Resp BP Pulse Ox 97.3 F L 85 25 H 144/69 99 07/16/16 07:55 07/16/16 07:55 07/16/16 07:55 07/16/16 07:55 07/16/16 07:55 Intake and Output: 07/16/16 07/16/16 06:59 18:59 Intake Total 120 Balance 120 - Medications Medications: Current Medications Acetaminophen (Tylenol 325mg Tab) 650 mg PO Q4 PRN PRN Reason: Fever >100.4 F Last Admin: 07/13/16 17:10 Dose: 650 mg Albuterol/Ipratropium (Duoneb 3 Mg/0.5 Mg (3 Ml) Ud) 3 ml IH [id number] [facility] Last Admin: 07/16/16 07:12 Dose: 3 ml Albuterol/Ipratropium (Duoneb 3 Mg/0.5 Mg (3 Ml) Ud) 3 ml IH Q2H PRN PRN Reason: Shortness of Breath Last Admin: 07/14/16 05:34 Dose: 3 ml Aspirin (Aspirin) 325 mg PO DAILY [facility] Last Admin: 07/15/16 10:32 Dose: 325 mg Budesonide (Pulmicort Respules) 0.5 mg IH [id number] [facility] Last Admin: 07/16/16 07:12 Dose: 0.5 mg Clotrimazole (Lotrimin 1%) 0 gm TOP BID [facility] Last Admin: 07/15/16 19:51 Dose: Not Given Heparin Sodium (Porcine) (Heparin) 5,000 units SC Q12 [facility] PRN Reason: Protocol Last Admin: 07/12/16 21:43 Dose: 5,000 units Hydralazine HCl (Apresoline) 10 mg IVP Q6 PRN PRN Reason: Systolic Blood Pressure Last Admin: 07/10/16 09:56 Dose: 10 mg Ceftriaxone Sodium (Rocephin 2 Gm Ivpb) 100 mls @ 100 mls/hr IVPB DAILY [facility] PRN Reason: Protocol Stop: 07/27/16 10:01 Last Admin: 07/15/16 10:35 Dose: 100 mls/hr Losartan Potassium (Cozaar) 25 mg PO DAILY [facility] Last Admin: 07/15/16 10:32 Dose: 25 mg Methylprednisolone (Solu-Medrol) 40 mg IVP Q8H [facility] Last Admin: 07/16/16 03:04 Dose: 40 mg Metoprolol Tartrate (Lopressor) 50 mg PO 0800,1800 [facility] Last Admin: 07/15/16 19:51 Dose: Not Given Pantoprazole Sodium (Protonix Ec Tab) 40 mg PO ACB [facility] Last Admin: 07/15/16 08:24 Dose: 40 mg Risperidone (Risperdal Tab) 0.5 mg PO AMHS PRN; Protocol PRN Reason: Agitation Silver Sulfadiazine (Silvadene 1% 20 Gm) 0 ea TOP DAILY [facility] Last Admin: 07/15/16 10:33 Dose: 1 applic Vitamin A (Vitamin A & D Oint Ud Foilpak) 1 ea TOP BID PRN PRN Reason: chapped lips Last Admin: 07/15/16 10:32 Dose: 1 ea - Labs Labs: 07/16/16 06:47 07/16/16 06:47 PT 13.7 Seconds (9.9-11.8) H 07/13/16 06:25 INR 1.27 (0.93-1.08) H 07/13/16 06:25 APTT 33.2 Seconds (23.7-30.8) H 07/13/16 06:25 Attending/Attestation - Attestation I have personally seen and examined this patient.: Yes I have fully participated in the care of the patient.: Yes I have reviewed all pertinent clinical information, including history, physical exam and plan: Yes
[2016-07-15 17:30] LABS: ARTERIAL BLOOD GAS HCO3 39.4 mmol/L (21-28); ARTERIAL BLOOD GAS O2 CAPACITY 12.1 mL/dl (16-24); ARTERIAL BLOOD GAS O2 CONTENT 11.9 ML/dl (15-23); ARTERIAL BLOOD GAS PH 7.29 (7.35-7.45); ARTERIAL BLOOD HGB O2 SAT 95.1 % (95.0-98.0); CARBOXYHEMOGLOBIN 2.1 % (0.5-1.5); HHB 1.6 % (0-5); METHEMOGLOBIN 1.3 % (0.0-3.0)
[2016-07-15 17:54] LABS: CALCIUM 10.1 mg/dL (8.4-10.5); MAGNESIUM 1.9 mg/dL (1.7-2.2)
[2016-07-15 18:06] LABS: TROPONIN I 0.11 ng/mL
--- NOTE | 2016-07-15 18:58 | CP.PCM.PN ---
Subjective - Date & Time of Evaluation Date of Evaluation: 07/15/16 Time of Evaluation: 17:18 - Subjective Subjective: Responded stat to SUBSURFACE AUGMENTEE OPERATOR call. Patient was noted to be obtunded and was barely responding to verbal commands, hence SUBSURFACE AUGMENTEE OPERATOR was called. Review of his chart reveals he was given Xanax 0.5mg at 10:40 am ;geodon 20 mg was given at 1:00am; Risperdal 0.5mg at 1:40am, and then again @ 10:40am . Pt has been on bipap (15/8, 40%). He was just transferred from tele unit at 4:58pm today. As noted above,pt was noted to be obtunded hence SUBSURFACE AUGMENTEE OPERATOR was called. Appears to breathing alright on bipap. Due to lethargic state he is unable to state any complaints. Pt was admitted because of sepsis, also noted to have elevated troponin and acute kidney injury. VS 177/76 HR 64 RR 24 sP02 95% Accucheck 137 PMH - Hypertension , Nephrolithiasis, Cataracts, Hearing impairment, Dementia, Right knee pain resulting in falls. Objective - Vital Signs/Intake and Output Vital Signs (last 24 hours): Temp Pulse Resp BP Pulse Ox 97 F L 63 19 127/97 H 95 07/15/16 12:00 07/15/16 14:00 07/15/16 12:00 07/15/16 12:00 07/15/16 06:00 Intake and Output: 07/15/16 07/15/16 06:59 18:59 Intake Total 360 120 Output Total 200 Balance 160 120 - Medications Medications: Current Medications Acetaminophen (Tylenol 325mg Tab) 650 mg PO Q4 PRN PRN Reason: Fever >100.4 F Last Admin: 07/13/16 17:10 Dose: 650 mg Albuterol/Ipratropium (Duoneb 3 Mg/0.5 Mg (3 Ml) Ud) 3 ml IH [id number] SARAH Last Admin: 07/15/16 13:47 Dose: 3 ml Albuterol/Ipratropium (Duoneb 3 Mg/0.5 Mg (3 Ml) Ud) 3 ml IH Q2H PRN PRN Reason: Shortness of Breath Last Admin: 07/14/16 05:34 Dose: 3 ml Alprazolam (Xanax) 0.5 mg PO BID SARAH Stop: 07/21/16 10:01 Last Admin: 07/15/16 10:41 Dose: 0.5 mg Aspirin (Aspirin) 325 mg PO DAILY [facility] Last Admin: 07/15/16 10:32 Dose: 325 mg Budesonide (Pulmicort Respules) 0.5 mg IH [id number] SARAH Last Admin: 07/15/16 08:00 Dose: 0.5 mg Clotrimazole (Lotrimin 1%) 0 gm TOP BID [facility] Last Admin: 07/15/16 10:34 Dose: 1 applic Heparin Sodium (Porcine) (Heparin) 5,000 units SC Q12 SARAH PRN Reason: Protocol Last Admin: 07/12/16 21:43 Dose: 5,000 units Hydralazine HCl (Apresoline) 10 mg IVP Q6 PRN PRN Reason: Systolic Blood Pressure Last Admin: 07/10/16 09:56 Dose: 10 mg Ceftriaxone Sodium (Rocephin 2 Gm Ivpb) 100 mls @ 100 mls/hr IVPB DAILY [facility] PRN Reason: Protocol Stop: 07/27/16 10:01 Last Admin: 07/15/16 10:35 Dose: 100 mls/hr Losartan Potassium (Cozaar) 25 mg PO DAILY [facility] Last Admin: 07/15/16 10:32 Dose: 25 mg Metoprolol Tartrate (Lopressor) 50 mg PO 0800,1800 [facility] Last Admin: 07/15/16 08:24 Dose: 50 mg Pantoprazole Sodium (Protonix Ec Tab) 40 mg PO ACB SARAH Last Admin: 07/15/16 08:24 Dose: 40 mg Risperidone (Risperdal Tab) 0.5 mg PO AMHS SARAH PRN Reason: Protocol Silver Sulfadiazine (Silvadene 1% 20 Gm) 0 ea TOP DAILY [facility] Last Admin: 07/15/16 10:33 Dose: 1 applic Vitamin A (Vitamin A & D Oint Ud Foilpak) 1 ea TOP BID PRN PRN Reason: chapped lips Last Admin: 07/15/16 10:32 Dose: 1 ea - Labs Labs: 07/15/16 07:45 07/15/16 07:45 PT 13.7 Seconds (9.9-11.8) H 07/13/16 06:25 INR 1.27 (0.93-1.08) H 07/13/16 06:25 APTT 33.2 Seconds (23.7-30.8) H 07/13/16 06:25 - Constitutional Appears: Other (Lethargic , is on Bipap) - Head Exam Head Exam: ATRAUMATIC, NORMAL INSPECTION, NORMOCEPHALIC - Eye Exam Eye Exam: PERRL - ENT Exam ENT Exam: Mucous Membranes Moist - Neck Exam Neck Exam: Normal Inspection - Respiratory Exam Respiratory Exam: Decreased Breath Sounds Additional comments: Patient is on bipap. - Cardiovascular Exam Cardiovascular Exam: Irregular Rhythm Additional comments: PACs noted on ekg done stat. - GI/Abdominal Exam GI & Abdominal Exam: Soft, Normal Bowel Sounds (abdomen is obese) - Extremities Exam Additional comments: multiple wounds with dressings on them noted on lower legs. - Neurological Exam Neurological Exam: Altered (arousable on painful stimuli, follows simple commands at times) - Skin Skin Exam: Diaphoretic, Warm Assessment and Plan - Assessment and Plan (Free Text) Assessment: Stupor secondary to medications given since last night . Respiratory failure Plan: EKG done stat .It shows NSR with 1st degree AV block frequent PACs and RBBB.( findings similar to prior EKG in the Chart.) Pt to be monitored closely till effect of drugs wear off. ABG was done on current bipap setting, CO2 retention was noted. Dr Last and Dr Villagran were notified. Patient was evaluated by Dr Villagran.Since pt is likely to be intubated, he discussed with the family. They made a decision to place patient on DNR/DNI status. As such patient is to be continued on bipap and Xanax and Geodon are to be discontinued and Risperdal to be given cautiously. Pt will remain on the medical floor. Total critical care time spent on this pt was:45 mins.
[2016-07-15] MEDS: MethylPREDNISolone 40 mg Vial IVP SCH (19:57)
--- NOTE | 2016-07-15 20:31 | PN ---
DATE: 07/15/2016 The patient was seen and examined at bedside. He is on BiPAP. He is arousable on strong touch stimuli; however, fairly somnolent. His ABG is 7.29, pCO2 82, pO2 120 on BiPAP 20/8 with FiO2 of 40% and the rate 25. PHYSICAL EXAMINATION: VITAL SIGNS: Temperature 97, blood pressure 127/97, heart rate 86, respiratory rate 19. HEAD AND NECK: Atraumatic. LUNGS: Clear to auscultation bilaterally. HEART: Regular rate and rhythm. S1, S2 distant. ABDOMEN: Soft, nontender, nondistended. MUSCULOSKELETAL: Has 1+ bilateral pedal and ankle edema. NEUROLOGIC: The patient moves upper extremities on command. SKIN: The patient has chronic cellulitic changes in both lower extremities. PSYCHIATRIC: The patient is very somnolent. LABORATORY DATA: WBC 9.4, hemoglobin 8.5, platelet count 316. Sodium 140, potassium 4, chloride 95, carbon dioxide 41, BUN 46, creatinine 1.8 down from 2. Glucose 128. Troponin 0.11. MEDICATIONS: DuoNeb every 6, hydralazine p.r.n., aspirin, Cozaar, DuoNeb p.r.n. , Geodon, heparin subQ, metoprolol, Lotrimin cream, nitroglycerin cream, Protonix, Pulmicort, risperidone, ceftriaxone, Solu-Medrol 40 mg IV q.8 ( started just now by me), Tylenol p.r.n., vitamin A and D topical. ASSESSMENT AND PLAN: This is an 80-year-old gentleman with acute respiratory acidosis secondary to hypercarbic respiratory failure. The patient is currently on BiPAP. This is the third episode when the patient presented to us with hypercapnic respiratory failure. I spoke and had a lengthy discussion with the patient's family who requested the patient to be a DNR/DNI and not put on the ventilator. This part of conversation was witnessed by 2 nurses as well. At the present time, I will continue with steroid taper, bronchodilators , antibiotics, BiPAP and serial ABG. Will continue with deep venous thrombosis and gastrointestinal prophylaxis. The patient also appears to have delirium with fluctuating consciousness, which may explain his agitation during the night. Psychiatry consult is appreciated as well. I will continue to target euvolemia, euglycemia, normothermia and oxygen saturation more than 90%. ccm time 40 min Loco Villagran MD cc: [id number] TT: 07/15/2016 20:31:23 Confirmation # [id number] Dictation # [id number] dn CODY
--- NOTE | 2016-07-15 21:34 | CP.PCM.PN ---
Subjective - Date & Time of Evaluation Date of Evaluation: 07/15/16 Time of Evaluation: 08:30 - Subjective Subjective: Noted patient to be restless at night. No fevers overnight, no abdominal pain, currently no shortness of breath at rest. Objective - Vital Signs/Intake and Output Vital Signs (last 24 hours): Temp Pulse Resp BP Pulse Ox 97 F L 63 19 127/97 H 95 07/15/16 12:00 07/15/16 14:00 07/15/16 12:00 07/15/16 12:00 07/15/16 06:00 Intake and Output: 07/15/16 07/16/16 18:59 06:59 Intake Total 120 0 Balance 120 0 - Medications Medications: Current Medications Acetaminophen (Tylenol 325mg Tab) 650 mg PO Q4 PRN PRN Reason: Fever >100.4 F Last Admin: 07/13/16 17:10 Dose: 650 mg Albuterol/Ipratropium (Duoneb 3 Mg/0.5 Mg (3 Ml) Ud) 3 ml IH [id number] [facility] Last Admin: 07/15/16 20:23 Dose: 3 ml Albuterol/Ipratropium (Duoneb 3 Mg/0.5 Mg (3 Ml) Ud) 3 ml IH Q2H PRN PRN Reason: Shortness of Breath Last Admin: 07/14/16 05:34 Dose: 3 ml Aspirin (Aspirin) 325 mg PO DAILY [facility] Last Admin: 07/15/16 10:32 Dose: 325 mg Budesonide (Pulmicort Respules) 0.5 mg IH [id number] [facility] Last Admin: 07/15/16 20:23 Dose: 0.5 mg Clotrimazole (Lotrimin 1%) 0 gm TOP BID [facility] Last Admin: 07/15/16 19:51 Dose: Not Given Heparin Sodium (Porcine) (Heparin) 5,000 units SC Q12 SARAH PRN Reason: Protocol Last Admin: 07/12/16 21:43 Dose: 5,000 units Hydralazine HCl (Apresoline) 10 mg IVP Q6 PRN PRN Reason: Systolic Blood Pressure Last Admin: 07/10/16 09:56 Dose: 10 mg Ceftriaxone Sodium (Rocephin 2 Gm Ivpb) 100 mls @ 100 mls/hr IVPB DAILY [facility] PRN Reason: Protocol Stop: 07/27/16 10:01 Last Admin: 07/15/16 10:35 Dose: 100 mls/hr Losartan Potassium (Cozaar) 25 mg PO DAILY [facility] Last Admin: 07/15/16 10:32 Dose: 25 mg Methylprednisolone (Solu-Medrol) 40 mg IVP Q8H [facility] Last Admin: 07/15/16 19:57 Dose: 40 mg Metoprolol Tartrate (Lopressor) 50 mg PO 0800,1800 [facility] Last Admin: 07/15/16 19:51 Dose: Not Given Pantoprazole Sodium (Protonix Ec Tab) 40 mg PO ACB [facility] Last Admin: 07/15/16 08:24 Dose: 40 mg Risperidone (Risperdal Tab) 0.5 mg PO AMHS PRN; Protocol PRN Reason: Agitation Silver Sulfadiazine (Silvadene 1% 20 Gm) 0 ea TOP DAILY [facility] Last Admin: 07/15/16 10:33 Dose: 1 applic Vitamin A (Vitamin A & D Oint Ud Foilpak) 1 ea TOP BID PRN PRN Reason: chapped lips Last Admin: 07/15/16 10:32 Dose: 1 ea - Labs Labs: 07/15/16 07:45 07/15/16 17:30 PT 13.7 Seconds (9.9-11.8) H 07/13/16 06:25 INR 1.27 (0.93-1.08) H 07/13/16 06:25 APTT 33.2 Seconds (23.7-30.8) H 07/13/16 06:25 - Constitutional Appears: Non-toxic, No Acute Distress - Head Exam Head Exam: NORMAL INSPECTION - ENT Exam ENT Exam: Mucous Membranes Moist - Neck Exam Neck Exam: absent: Lymphadenopathy, Meningismus - Respiratory Exam Respiratory Exam: Decreased Breath Sounds - Cardiovascular Exam Cardiovascular Exam: +S1, +S2 - GI/Abdominal Exam GI & Abdominal Exam: Soft. absent: Tenderness - Extremities Exam Additional comments: much improved swelling and erythema of both legs Assessment and Plan - Assessment and Plan (Free Text) Plan: Assessment severe sepsis S/P shock S/P ventilator-dependent respiratory failure with acute on chronic renal failure due to Group G strep bacteremia, probably secondary to bilateral lower extremities skin and skin structure infection; also with MSSA from the wound cultures; so far no evidence of new infection; patient is clinically improving; he was intubated for hypercarbic respiratory failure and congestion, no evidence of pneumonia currently acute rhabdomyolysis consider acute NSTEMI HTN chronic renal failure dementia obesity with BMI 38 Plan continue Rocephin (day 14 from first negative blood cx) - patient should finish 28 days of antibiotics 2D echocardiogram did not show vegetations will continue to monitor clinically
[2016-07-16] MEDS: MethylPREDNISolone 40 mg Vial IVP SCH ×3 (03:04→18:06)
[2016-07-16] MEDS: Albuterol-Ipratrop 3 mg / 0.5 (3 ml) UD IH SCH ×5 (04:09→20:26)
[2016-07-16 07:05] LABS: ALB/GLOB RATIO 0.7 (1.1-1.8); BILIRUBIN,TOTAL 0.6 mg/dL (0.2-1.3); CALCIUM 9.6 mg/dL (8.4-10.5); POTASSIUM 4.3 mmol/L (3.6-5.0); TOTAL PROTEIN 7.1 g/dL (5.8-8.3)
[2016-07-16] MEDS: Budesonide 0.5 mg/2 ml Inhal Susp UD IH SCH ×2 (07:12→20:25)
[2016-07-16 07:18] LABS: HEMATOCRIT 27.2 % (42.0-52.0); MEAN CELL VOLUME 87.2 fL (80.0-105.0); MEAN CORPUSCULAR HEMOGLOBIN 27.2 pg (25.0-35.0); MEAN CORPUSCULAR HGB CONC 31.3 g/dl (31.0-37.0); RED CELL DISTRIBUTION WIDTH 13.5 % (11.5-14.5); WHITE BLOOD COUNT 7.3 10^3/ul (4.5-11.0)
--- NOTE | 2016-07-16 08:48 | PN ---
DATE: 07/16/2016 SUBJECTIVE: The patient is somewhat sleepy this morning, but easily arousable. He is not short of breath at rest. OBJECTIVE: VITAL SIGNS: Temperature is 97.0, pulse 68, respirations 18, blood pressure 127 /97. Oxygen saturation on BiPAP is 96%. HEENT: Normocephalic, atraumatic. NECK: No JVD. CARDIOVASCULAR: Systolic ejection murmur at the lower left sternal border. No S3 gallop. LUNGS: Minimal bilateral rhonchi. No wheezing. EXTREMITIES: Mild edema. No cyanosis, no clubbing. Calves are nontender to palpation. GASTROINTESTINAL: Abdomen is soft, nontender, nondistended. Bowel sounds are positive. SKIN: Resolving cellulitis of the lower extremities (anterior aspects). NEUROLOGIC: Limited at the present time. IMPRESSION: 1. Status post respiratory failure (multiple episodes). 2. Chronic obstructive pulmonary disease. 3. Bilateral cellulitis. 4. Severe sepsis. 5. Acute myocardial infarction. 6. Renal insufficiency. 7. Mild anemia. PLAN: The patient is mildly sleepy this morning -- but easily arousable. He is not short of breath at rest. I did discuss the case with the night nurse at length. Apparently, the patient did receive some sedative medications -- while on telemetry. Thus, when the patient arrived on 5R, the patient was very lethargic. A rapid response was called. An arterial blood gas done--revealed an acute respiratory acidosis. The patient was then placed on BiPAP. He is oxygenating very well on the BiPAP. On physical exam, there is certainly less bronchospasm noted. I will continue with the current nebulizer treatments and increased steroids (ordered by Dr. Villagran) for now. The note by Dr. Villagran is reviewed. I would continue with the psychiatric evaluation and close followup. Again, I did discuss the case with the night nurse at length. The patient has now been made a do not resuscitate/do not intubate status. The patient remains with a very tenuous outlook. All are aware. I will discuss the above with the attending physician. Ken Mancini MD cc: [id number] TT: 07/16/2016 08:47:28 Confirmation # [id number] Dictation # [id number] jn CODY
--- NOTE | 2016-07-16 08:54 | CP.PCM.PN ---
<Clary Burns - Last Filed: 07/16/16 08:49> Subjective - Date & Time of Evaluation Date of Evaluation: 07/16/16 Time of Evaluation: 08:49 - Subjective Subjective: Patient seen and evaluated at bedside this morning. Patient is drowsy, in and out of sleep. Bandages are clean dry and intact to bilateral lower extremities. Patient unable to provide ROS. Objective - Vital Signs/Intake and Output Vital Signs (last 24 hours): Temp Pulse Resp BP Pulse Ox 97.3 F L 85 25 H 144/69 99 07/16/16 07:55 07/16/16 07:55 07/16/16 07:55 07/16/16 07:55 07/16/16 07:55 Intake and Output: 07/16/16 07/16/16 06:59 18:59 Intake Total 120 Balance 120 - Medications Medications: Current Medications Acetaminophen (Tylenol 325mg Tab) 650 mg PO Q4 PRN PRN Reason: Fever >100.4 F Last Admin: 07/13/16 17:10 Dose: 650 mg Albuterol/Ipratropium (Duoneb 3 Mg/0.5 Mg (3 Ml) Ud) 3 ml IH [id number] [facility] Last Admin: 07/16/16 07:12 Dose: 3 ml Albuterol/Ipratropium (Duoneb 3 Mg/0.5 Mg (3 Ml) Ud) 3 ml IH Q2H PRN PRN Reason: Shortness of Breath Last Admin: 07/14/16 05:34 Dose: 3 ml Aspirin (Aspirin) 325 mg PO DAILY [facility] Last Admin: 07/15/16 10:32 Dose: 325 mg Budesonide (Pulmicort Respules) 0.5 mg IH [id number] [facility] Last Admin: 07/16/16 07:12 Dose: 0.5 mg Clotrimazole (Lotrimin 1%) 0 gm TOP BID [facility] Last Admin: 07/15/16 19:51 Dose: Not Given Heparin Sodium (Porcine) (Heparin) 5,000 units SC Q12 SARAH PRN Reason: Protocol Last Admin: 07/12/16 21:43 Dose: 5,000 units Hydralazine HCl (Apresoline) 10 mg IVP Q6 PRN PRN Reason: Systolic Blood Pressure Last Admin: 07/10/16 09:56 Dose: 10 mg Ceftriaxone Sodium (Rocephin 2 Gm Ivpb) 100 mls @ 100 mls/hr IVPB DAILY [facility] PRN Reason: Protocol Stop: 07/27/16 10:01 Last Admin: 07/15/16 10:35 Dose: 100 mls/hr Losartan Potassium (Cozaar) 25 mg PO DAILY [facility] Last Admin: 07/15/16 10:32 Dose: 25 mg Methylprednisolone (Solu-Medrol) 40 mg IVP Q8H [facility] Last Admin: 07/16/16 03:04 Dose: 40 mg Metoprolol Tartrate (Lopressor) 50 mg PO 0800,1800 [facility] Last Admin: 07/15/16 19:51 Dose: Not Given Pantoprazole Sodium (Protonix Ec Tab) 40 mg PO ACB [facility] Last Admin: 07/15/16 08:24 Dose: 40 mg Risperidone (Risperdal Tab) 0.5 mg PO AMHS PRN; Protocol PRN Reason: Agitation Silver Sulfadiazine (Silvadene 1% 20 Gm) 0 ea TOP DAILY [facility] Last Admin: 07/15/16 10:33 Dose: 1 applic Vitamin A (Vitamin A & D Oint Ud Foilpak) 1 ea TOP BID PRN PRN Reason: chapped lips Last Admin: 07/15/16 10:32 Dose: 1 ea - Labs Labs: 07/16/16 06:47 07/16/16 06:47 PT 13.7 Seconds (9.9-11.8) H 07/13/16 06:25 INR 1.27 (0.93-1.08) H 07/13/16 06:25 APTT 33.2 Seconds (23.7-30.8) H 07/13/16 06:25 - Neurological Exam Neurological Exam: absent: Alert, Awake - Additional Findings Additional findings: DERMATOLOGIC: Left leg- two superficial healed ulcerations on the anterior and lateral aspect of the leg, there is no drainage, no purulence, no erythema. Right leg- very superficial healing lesion with mild hyperkeratotic tissue at the lateral border. No drainage, no erythema, no purulence. Remaining skin is intact, nails are thickened and discolored x10, mild hyperkeratotic tissue present to the dorsal aspect of the digits. VASCULAR: DP/PT pulses are non palpable bilaterally, skin temperature is normal, mild edema of b/l lower extremities NEUROLOGIC: Protective sensation decreased ORTHOPEDIC: Negative pain on palpation to the lower extremities Assessment and Plan - Assessment and Plan (Free Text) Assessment: 80 year old male with healing superficial ulcerations of bilateral lower extremities. Plan: Patient seen and evaluated, discussed with attending Dr. Almendarez. Legs cleansed with sterile saline, dressed with foam dressings. Offloading boots applied to bilateral lower extremities to protect the heels. Podiatry will continue to follow <Luis Carlos Almendarez - Last Filed: 07/16/16 12:01> Objective - Vital Signs/Intake and Output Vital Signs (last 24 hours): Temp Pulse Resp BP Pulse Ox 97.3 F L 85 25 H 144/69 99 07/16/16 07:55 07/16/16 11:16 07/16/16 07:55 07/16/16 11:16 07/16/16 07:55 Intake and Output: 07/16/16 07/16/16 06:59 18:59 Intake Total 120 Balance 120 - Medications Medications: Current Medications Acetaminophen (Tylenol 325mg Tab) 650 mg PO Q4 PRN PRN Reason: Fever >100.4 F Last Admin: 07/13/16 17:10 Dose: 650 mg Albuterol/Ipratropium (Duoneb 3 Mg/0.5 Mg (3 Ml) Ud) 3 ml IH [id number] [facility] Last Admin: 07/16/16 07:12 Dose: 3 ml Albuterol/Ipratropium (Duoneb 3 Mg/0.5 Mg (3 Ml) Ud) 3 ml IH Q2H PRN PRN Reason: Shortness of Breath Last Admin: 07/14/16 05:34 Dose: 3 ml Aspirin (Aspirin) 325 mg PO DAILY [facility] Last Admin: 07/16/16 11:16 Dose: 325 mg Budesonide (Pulmicort Respules) 0.5 mg IH [id number] [facility] Last Admin: 07/16/16 07:12 Dose: 0.5 mg Clotrimazole (Lotrimin 1%) 0 gm TOP BID [facility] Last Admin: 07/16/16 11:17 Dose: 1 applic Heparin Sodium (Porcine) (Heparin) 5,000 units SC Q12 [facility] PRN Reason: Protocol Last Admin: 07/12/16 21:43 Dose: 5,000 units Hydralazine HCl (Apresoline) 10 mg IVP Q6 PRN PRN Reason: Systolic Blood Pressure Last Admin: 07/10/16 09:56 Dose: 10 mg Ceftriaxone Sodium (Rocephin 2 Gm Ivpb) 100 mls @ 100 mls/hr IVPB DAILY [facility] PRN Reason: Protocol Stop: 07/27/16 10:01 Last Admin: 07/16/16 11:13 Dose: 100 mls/hr Losartan Potassium (Cozaar) 25 mg PO DAILY [facility] Last Admin: 07/16/16 11:16 Dose: 25 mg Methylprednisolone (Solu-Medrol) 40 mg IVP Q8H [facility] Last Admin: 07/16/16 11:16 Dose: 40 mg Metoprolol Tartrate (Lopressor) 50 mg PO 0800,1800 [facility] Last Admin: 07/16/16 11:15 Dose: 50 mg Pantoprazole Sodium (Protonix Ec Tab) 40 mg PO ACB [facility] Last Admin: 07/16/16 11:15 Dose: 40 mg Risperidone (Risperdal Tab) 0.5 mg PO [facility] PRN; Protocol PRN Reason: Agitation Silver Sulfadiazine (Silvadene 1% 20 Gm) 0 ea TOP DAILY [facility] Last Admin: 07/16/16 11:17 Dose: 1 applic Vitamin A (Vitamin A & D Oint Ud Foilpak) 1 ea TOP BID PRN PRN Reason: chapped lips Last Admin: 07/15/16 10:32 Dose: 1 ea - Labs Labs: 07/16/16 06:47 07/16/16 06:47 PT 13.7 Seconds (9.9-11.8) H 07/13/16 06:25 INR 1.27 (0.93-1.08) H 07/13/16 06:25 APTT 33.2 Seconds (23.7-30.8) H 07/13/16 06:25 Attending/Attestation - Attestation I have personally seen and examined this patient.: Yes I have fully participated in the care of the patient.: Yes I have reviewed all pertinent clinical information, including history, physical exam and plan: Yes
[2016-07-16] MEDS: Pantoprazole 40 mg EC Tab PO SCH (11:15)
[2016-07-16] MEDS: Silver Sulfadiazine 1% Cream (20 gm) TOP SCH (11:17)
[2016-07-16] MEDS: Clotrimazole 1% Cream(30 gm) TOP SCH ×2 (11:17→17:09)
--- NOTE | 2016-07-16 13:34 | CON ---
DATE: 07/16/2016 The patient is an 80-year-old white male with multiple medical issues who psychiatry is following for acute delirium related to multiple medical issues. The patient is being treated with Risperdal 0.5 mg twice daily as well as Xanax for periods of confusion and minor agitation. Dr. Nance has been followi ng up with patient and today, is disorganized with no ability to have a meaningful conversation. Of note, Dr. Grissom's evaluation was the second evaluation that the family requested, a second eval uation after Dr. Lim saw the patient. I met with the patient at bedside and I agree with Dr. Graciela garibay's assessment. The patient is suffering from a delirium and it is very difficult to have a co herent meaningful conversation with him. The patient is unable to vocalize current month and year; h owever, he is able to pick the correct answer when I give him a choice between various options. He i s able to indicate it is July and it is 2016. The patient is aware that he is in the hospital. He nods his head when I ask him if he has some depression or anxiety, but unclear if he truly understand s my questioning in this regard. He is unable to answer questions about hallucinations, but does not appear to be responding to internal stimuli during my visit. All the nursing notes indicate that kris moya had some restlessness and agitation overnight. He is currently comfortable and in good control , although a little sedated or fatigued. The patient denies any discomfort; however, does states dif ficulty breathing and he is noticeably short of breath which is noted in previous notes on the unit. The patient did not have any further episodes of screaming, yelling overnight, but he did try to pul l on the face mask. The patient's insight and judgment are still considered to be limited due to his disorientation. RELEVANT PSYCHIATRIC MEDICATIONS: Include Risperdal 0.5 mg a.m. and at bedtime p.r.n. The patient h as not received any administrations of this medication. VITAL SIGNS: Reviewed by this provider and at 7:55 a.m. they are 97.3, 85, 144/69 and respiratory ra te 25. LABORATORY DATA: Also reviewed by this provider. IMPRESSION: The patient ____ acute delirium related to multiple medical issues. PLAN: Please continue with current management including Risperdal 0.5 mg p.o. b.i.d. p.r.n. Would r ecommend that nursing treatment team give the Risperdal when patient does become agitated. This may help with agitation and clarity of thought. The patient did not receive any doses of Risperdal yeste rday, but did have periods of agitation overnight around 1:00 a.m. ____, family members were also gi cl emotional support. Again, the family members were not around to calm the patient down, ____ use Risperdal in this case. Would recommend to avoid using benzos and use Risperdal instead. Please not e, the is aware of recommendation for the patient ____ per Dr. Grissom's notes. Psychiatry will follow every other day to determine the patient's progress. Please feel free to call if there a re any urgent issues or acute notable changes in the patient's mental status or tolerance to medicati on. Lian Black MD cc: [id number] TT: 07/16/2016 13:34:35 Confirmation # [id number] Dictation # [id number]
--- NOTE | 2016-07-16 14:12 | PN ---
DATE: 07/16/2016 SUBJECTIVE: The patient is lying in bed. He is less lethargic today and responsive to verbal comman ds. There is some upper respiratory congestion. The patient denies any shortness of breath or chest pain. He remains somewhat confused. OBJECTIVE: VITAL SIGNS: Blood pressure 144/69, pulse 85, temperature 97.3, respiratory rate 25. LUNGS: Show a few scattered crepitations and bibasilar rales. HEART: Regular rate and rhythm. ABDOMEN: Soft, nontender, bowel sounds are normoactive. EXTREMITIES: Dependent edema without change. NEUROLOGIC: The patient is awake and responsive without focal sensory or motor deficits. SKIN: Warm and dry. LABORATORY DATA: WBC 7.3, hemoglobin 8.5, hematocrit 27.2. Sodium 141, potassium 4.3, chloride 96, CO2 37, BUN 52, creatinine 1.9, glucose 171. IMPRESSION: 1. Hypertension, hypertensive cardiovascular disease and congestive heart failure. 2. Coronary artery disease, status post [id number] elevation myocardial infarction. 3. Status post acute rhabdomyolysis with acute renal failure superimposed on chronic kidney di sease. 4. Status post sepsis, presumed secondary to cellulitis of the lower extremities with chronic venous stasis ulcers. 5. Paroxysmal atrial fibrillation with intermittent rapid ventricular response. 6. Dementia with superimposed delirium. 7. Immobility secondary to severe degenerative joint disease with obesity and deconditioning. 8. Anemia. 9. Hyperglycemia. PLAN: Continue present treatment. Pulmonary, cardiology and infectious disease followup. Out of be d as tolerated. Social work for discharge planning. Leonid Calderón JD, MD cc: [id number] TT: 07/16/2016 14:12:12 Confirmation # [id number] Dictation # [id number] robbie
--- NOTE | 2016-07-16 15:01 | CARD ---
APPROVED REPORT EKG Measurement Heart [id number] <Conclusion> Sinus rhythm with 1st degree AV block with premature supraventricular complexes Right bundle branch block Abnormal ECG
--- NOTE | 2016-07-16 15:19 | CP.PCM.PN ---
Subjective - Date & Time of Evaluation Date of Evaluation: 07/16/16 Time of Evaluation: 14:35 - Subjective Subjective: Comfortable in bed, not in distress, afebrile overnight. No diarrhea currently. Objective - Vital Signs/Intake and Output Vital Signs (last 24 hours): Temp Pulse Resp BP Pulse Ox 97.3 F L 85 25 H 144/69 99 07/16/16 07:55 07/16/16 11:16 07/16/16 07:55 07/16/16 11:16 07/16/16 07:55 Intake and Output: 07/16/16 07/16/16 06:59 18:59 Intake Total 120 Balance 120 - Medications Medications: Current Medications Acetaminophen (Tylenol 325mg Tab) 650 mg PO Q4 PRN PRN Reason: Fever >100.4 F Last Admin: 07/13/16 17:10 Dose: 650 mg Albuterol/Ipratropium (Duoneb 3 Mg/0.5 Mg (3 Ml) Ud) 3 ml IH [id number] [facility] Last Admin: 07/16/16 13:03 Dose: 3 ml Albuterol/Ipratropium (Duoneb 3 Mg/0.5 Mg (3 Ml) Ud) 3 ml IH Q2H PRN PRN Reason: Shortness of Breath Last Admin: 07/14/16 05:34 Dose: 3 ml Aspirin (Aspirin) 325 mg PO DAILY [facility] Last Admin: 07/16/16 11:16 Dose: 325 mg Budesonide (Pulmicort Respules) 0.5 mg IH [id number] [facility] Last Admin: 07/16/16 07:12 Dose: 0.5 mg Clotrimazole (Lotrimin 1%) 0 gm TOP BID [facility] Last Admin: 07/16/16 11:17 Dose: 1 applic Heparin Sodium (Porcine) (Heparin) 5,000 units SC Q12 SARAH PRN Reason: Protocol Last Admin: 07/12/16 21:43 Dose: 5,000 units Hydralazine HCl (Apresoline) 10 mg IVP Q6 PRN PRN Reason: Systolic Blood Pressure Last Admin: 07/10/16 09:56 Dose: 10 mg Ceftriaxone Sodium (Rocephin 2 Gm Ivpb) 100 mls @ 100 mls/hr IVPB DAILY [facility] PRN Reason: Protocol Stop: 07/27/16 10:01 Last Admin: 07/16/16 11:13 Dose: 100 mls/hr Losartan Potassium (Cozaar) 25 mg PO DAILY [facility] Last Admin: 07/16/16 11:16 Dose: 25 mg Methylprednisolone (Solu-Medrol) 40 mg IVP Q8H [facility] Last Admin: 07/16/16 11:16 Dose: 40 mg Metoprolol Tartrate (Lopressor) 50 mg PO 0800,1800 [facility] Last Admin: 07/16/16 11:15 Dose: 50 mg Pantoprazole Sodium (Protonix Ec Tab) 40 mg PO ACB [facility] Last Admin: 07/16/16 11:15 Dose: 40 mg Risperidone (Risperdal Tab) 0.5 mg PO AMHS PRN; Protocol PRN Reason: Agitation Silver Sulfadiazine (Silvadene 1% 20 Gm) 0 ea TOP DAILY [facility] Last Admin: 07/16/16 11:17 Dose: 1 applic Vitamin A (Vitamin A & D Oint Ud Foilpak) 1 ea TOP BID PRN PRN Reason: chapped lips Last Admin: 07/15/16 10:32 Dose: 1 ea - Labs Labs: 07/16/16 06:47 07/16/16 06:47 PT 13.7 Seconds (9.9-11.8) H 07/13/16 06:25 INR 1.27 (0.93-1.08) H 07/13/16 06:25 APTT 33.2 Seconds (23.7-30.8) H 07/13/16 06:25 - Constitutional Appears: Non-toxic, No Acute Distress - Head Exam Head Exam: NORMAL INSPECTION - ENT Exam ENT Exam: Mucous Membranes Moist - Neck Exam Neck Exam: absent: Lymphadenopathy, Meningismus - Respiratory Exam Respiratory Exam: Decreased Breath Sounds - Cardiovascular Exam Cardiovascular Exam: +S1, +S2 - GI/Abdominal Exam GI & Abdominal Exam: Soft. absent: Tenderness Assessment and Plan - Assessment and Plan (Free Text) Plan: Assessment severe sepsis S/P shock S/P ventilator-dependent respiratory failure with acute on chronic renal failure due to Group G strep bacteremia, probably secondary to bilateral lower extremities skin and skin structure infection; also with MSSA from the wound cultures; so far no evidence of new infection; patient is clinically improving; he was intubated for hypercarbic respiratory failure and congestion, no evidence of pneumonia currently acute rhabdomyolysis consider acute NSTEMI HTN chronic renal failure dementia obesity with BMI 38 Plan continue Rocephin (day 15 from first negative blood cx) - patient should finish 28 days of antibiotics 2D echocardiogram did not show vegetations will continue to monitor clinically
[2016-07-17] MEDS: Albuterol-Ipratrop 3 mg / 0.5 (3 ml) UD IH SCH ×4 (01:25→19:18)
[2016-07-17] MEDS: MethylPREDNISolone 40 mg Vial IVP SCH ×3 (01:56→22:15)
[2016-07-17] MEDS: Pantoprazole 40 mg EC Tab PO SCH (06:30)
[2016-07-17] MEDS: Budesonide 0.5 mg/2 ml Inhal Susp UD IH SCH ×2 (07:21→19:18)
[2016-07-17 08:01] VITALS: RESP 20
--- NOTE | 2016-07-17 08:28 | PN ---
DATE: 07/17/2016 SUBJECTIVE: The patient appears comfortable this morning. He is mildly short of breath, but in no acute distress. He remains confused. PHYSICAL EXAMINATION: VITAL SIGNS: Temperature is 97.8, pulse 68, respirations 20-22, blood pressure 130/81. Oxygen saturation on nasal cannula is 96%-99%. HEENT: Normocephalic, atraumatic. No JVD. CARDIOVASCULAR: Systolic ejection murmur at the lower left sternal border. No S3 gallop. LUNGS: Minimal/less rhonchi. No wheezing. EXTREMITIES: Mild edema. No cyanosis, no clubbing. Calves are nontender to palpation. GASTROINTESTINAL: Abdomen is soft, nontender, nondistended. Bowel sounds are positive. SKIN: Resolving cellulitis of the lower extremities (anterior aspects). NEUROLOGIC: Limited at the present time. IMPRESSION: 1. Status post respiratory failure (multiple episodes). 2. Chronic obstructive pulmonary disease. 3. Bilateral cellulitis. 4. Severe sepsis. 5. Acute myocardial infarction. 6. Renal insufficiency. 7. Mild anemia. PLAN: The patient appears comfortable this morning. He is mildly short of breath at rest. He is awake and alert. He remains somewhat confused. I did discuss the case with the night nurse at length. The night nurse stated that the patient did have a pretty good night. On physical exam, there is only minimal bronchospasm noted. I will continue with the current nebulizer treatments and decrease the intravenous steroids this morning. In addition, the alveolar-arterial gradient is significantly less. Oxygen saturation on nasal cannula is now 96%-99%. The patient remains on antibiotic therapy -- as per infectious disease. There are no temperatures noted. The leukocytosis has resolved. Psychiatric input is noted and appreciated. Clinical status of the patient is certainly improved -- compared to a few days ago. However, again, the overall prognosis for this elderly patient-- with multiple serious medical problems -- remains very guarded. I will discuss the above with the attending physician. Ken Mancini MD cc: [id number] TT: 07/17/2016 08:27:04 Confirmation # [id number] Dictation # [id number] en [facility]
[2016-07-17] MEDS: Silver Sulfadiazine 1% Cream (20 gm) TOP SCH (11:14)
[2016-07-17] MEDS: Clotrimazole 1% Cream(30 gm) TOP SCH ×2 (11:14→17:50)
[2016-07-17 11:48] LABS: ADD MANUAL DIFF? NO
[2016-07-17 11:52] LABS: BASO # 0.01 K/mm3 (0.0-2.0); BASO % 0.1 % (0.0-3.0); GRAN # 12.83 (1.4-6.5); GRAN % 91.6 % (50.0-68.0); HEMATOCRIT 25.2 % (42.0-52.0); LYMPH # 0.6 (1.2-3.4); LYMPH % 4.4 % (22.0-35.0); MEAN CELL VOLUME 84.6 fL (80.0-105.0); MEAN CORPUSCULAR HEMOGLOBIN 27.9 pg (25.0-35.0); MEAN CORPUSCULAR HGB CONC 32.9 g/dl (31.0-37.0); MEAN PLATELET VOLUME 8.6 fl (7.0-11.0); MONO # 0.6 (0.1-0.6); MONO % 3.9 % (1.0-6.0); PLATELET COUNT 298 10^3/uL (120.0-450.0); RED CELL DISTRIBUTION WIDTH 13.2 % (11.5-14.5)
[2016-07-17 12:11] LABS: CALCIUM 9.2 mg/dL (8.4-10.5)
--- NOTE | 2016-07-17 13:37 | PN ---
DATE: 07/16/2016 SUBJECTIVE: He is comfortable in bed, in no acute distress. He gets hypoxic during the night. He is getting BiPAP in the night. He has non-STEMI. Cardiac enzymes are improving. Also has sepsis, treated with IV antibiotics. He developed acute respiratory acidosis, secondary to respiratory failure. Denies any shortness of breath. He also gets delirious. Currently, oriented to time, place, person. Psych following. He also had hypernatremia, which is improved. Has anemia with low hemoglobin around 8 g/dL. He has leukocytosis, improving. REVIEW OF SYSTEMS: As per HPI. Rest of 12-point reviewed and negative. PHYSICAL EXAMINATION: GENERAL: Comfortable in bed, in no acute distress. VITAL SIGNS: Temperature 98.7, heart rate is 90 per minute, blood pressure 127/ 98, respiratory rate 20 per minute. HEENT: Normal. LUNGS: Clear to auscultation. Air entry present, equal bilateral. CARDIOVASCULAR: S1 and S2 normal. No murmur, no gallop. ABDOMEN: Soft, nontender, obese. MUSCULOSKELETAL: 1+ bilateral pedal edema, ankle edema. Bilateral chronic skin changes on both feet. NEUROLOGIC: Awake, alert, oriented to place, not to time. Conversant. No focal sensorimotor deficit. PSYCHIATRIC: Episodic episodes of delirium. Currently alert, oriented. LYMPHADENOPATHY: None. LABORATORIES: White count 7.3, hemoglobin 8.5, hematocrit 27.2, platelet count 283. Sodium 141, potassium 4.3, creatinine 1.9, glucose 171, calcium 9.6, total bilirubin 0.6. MEDICATIONS: Tylenol 650 q. 6 hours p.r.n., DuoNeb q. 6 hours p.r.n., aspirin 81 mg daily, ceftriaxone 2 grams daily, local application, heparin 5000 units subQ q. 12, Cozaar 25 mg daily, Solu-Medrol 40 q. 12, IV Lopressor 50 mg p.o. b.i.d., Protonix 40 mg daily, Risperdal 2.5 mg, vitamin A topical. ASSESSMENT: 1. Non-ST elevation myocardial infarction. 2. Delirium. 3. Leukocytosis. 4. Anemia. 5. Coagulopathy. 6. Chronic kidney disease stage III. 7. Sepsis. PLAN: He is currently comfortable, not disoriented, no delirium now. He is on BiPAP in the night for respiratory failure. Renal function is improving. Electrolytes normal. Heme; He has leukocytosis and anemia. Hemoglobin stable at 8.3 g/dL. Will transfuse packed red blood cells if hemoglobin declines below 8. Anemia is multifactorial, chronic disease, iron deficiency and chronic kidney disease. He is currently on IV antibiotic, Rocephin. ID following. Deep venous thrombosis with 5000 units heparin b.i.d. Non-ST elevation myocardial infarction. Cardiac enzymes declining, no issues, conservative management, cardiology following. Nu Bhardwaj MD cc: [id number] TT: 07/17/2016 13:36:57 Confirmation # [id number] Dictation # [id number] en MTDD
--- NOTE | 2016-07-17 15:11 | PN ---
DATE: 07/17/2016 SUBJECTIVE: The patient is lying in bed. He is somewhat confused and agitated. OBJECTIVE: VITAL SIGNS: Blood pressure 124/54, pulse 70, temperature 97.9, respiratory rate 20. LUNGS: Show few scattered crepitations bilaterally. HEART: Regular rate and rhythm. ABDOMEN: Soft, nontender, bowel sounds are normoactive. EXTREMITIES: With dependent edema. NEUROLOGIC: The patient is awake and confused without focal sensory or motor deficits. SKIN: Warm and dry. LABORATORY DATA: WBC is 14.0, hemoglobin 8.3, hematocrit 25.2, sodium 137, potassium 4.0, chloride 9 4, CO2 of 35, BUN 60, creatinine 1.5, glucose 265. IMPRESSION: 1. Hypertension, hypertensive cardiovascular disease and congestive heart failure. 2. Coronary artery disease, status post non-ST segment elevation myocardial infarction. 3. Status post acute rhabdomyolysis with acute renal failure superimposed on mild chronic kidney dis ease. 4. Status post sepsis, presumed secondary to cellulitis of the lower extremities with chronic venous stasis ulcers. 5. Paroxysmal atrial fibrillation with intermittent rapid ventricular response. 6. Dementia with superimposed delirium due to underlying medical problems. 7. Immobility secondary to severe degenerative joint disease with obesity and deconditioning. 8. Anemia. 9. Hyperglycemia. PLAN: Continue present treatment. Pulmonary, cardiology and infectious disease followup. Out of be d as tolerated. Social work for discharge planning. Prognosis remains guarded. Leonid Calderón JD, MD cc: [id number] TT: 07/17/2016 15:05:36 Confirmation # [id number] Dictation # [id number] samuel
--- NOTE | 2016-07-17 15:46 | CP.PCM.PN ---
Subjective - Date & Time of Evaluation Date of Evaluation: 07/17/16 Time of Evaluation: 13:30 - Subjective Subjective: Comfortable in bed, not in distress, no fevers overnight, no diarrhea. Objective - Vital Signs/Intake and Output Vital Signs (last 24 hours): Temp Pulse Resp BP Pulse Ox 97.9 F 70 20 124/54 L 97 07/17/16 08:00 07/17/16 11:13 07/17/16 08:00 07/17/16 11:13 07/17/16 08:00 Intake and Output: 07/17/16 07/17/16 06:59 18:59 Intake Total 1200 960 Balance 1200 960 - Medications Medications: Current Medications Acetaminophen (Tylenol 325mg Tab) 650 mg PO Q4 PRN PRN Reason: Fever >100.4 F Last Admin: 07/13/16 17:10 Dose: 650 mg Albuterol/Ipratropium (Duoneb 3 Mg/0.5 Mg (3 Ml) Ud) 3 ml IH [id number] [facility] Last Admin: 07/17/16 13:15 Dose: 3 ml Albuterol/Ipratropium (Duoneb 3 Mg/0.5 Mg (3 Ml) Ud) 3 ml IH Q2H PRN PRN Reason: Shortness of Breath Last Admin: 07/14/16 05:34 Dose: 3 ml Aspirin (Aspirin) 325 mg PO DAILY [facility] Last Admin: 07/17/16 11:12 Dose: 325 mg Budesonide (Pulmicort Respules) 0.5 mg IH [id number] [facility] Last Admin: 07/17/16 07:21 Dose: 0.5 mg Clotrimazole (Lotrimin 1%) 0 gm TOP BID [facility] Last Admin: 07/17/16 11:14 Dose: 1 applic Heparin Sodium (Porcine) (Heparin) 5,000 units SC Q12 SARAH PRN Reason: Protocol Last Admin: 07/12/16 21:43 Dose: 5,000 units Hydralazine HCl (Apresoline) 10 mg IVP Q6 PRN PRN Reason: Systolic Blood Pressure Last Admin: 07/10/16 09:56 Dose: 10 mg Ceftriaxone Sodium (Rocephin 2 Gm Ivpb) 100 mls @ 100 mls/hr IVPB DAILY [facility] PRN Reason: Protocol Stop: 07/27/16 10:01 Last Admin: 07/17/16 11:12 Dose: 100 mls/hr Losartan Potassium (Cozaar) 25 mg PO DAILY [facility] Last Admin: 07/17/16 11:13 Dose: 25 mg Methylprednisolone (Solu-Medrol) 40 mg IVP Q12 [facility] Last Admin: 07/17/16 11:14 Dose: 40 mg Metoprolol Tartrate (Lopressor) 50 mg PO 0800,1800 [facility] Last Admin: 07/17/16 11:12 Dose: 50 mg Pantoprazole Sodium (Protonix Ec Tab) 40 mg PO ACB [facility] Last Admin: 07/17/16 06:30 Dose: 40 mg Risperidone (Risperdal Tab) 0.5 mg PO AMHS PRN; Protocol PRN Reason: Agitation Vitamin A (Vitamin A & D Oint Ud Foilpak) 1 ea TOP BID PRN PRN Reason: chapped lips Last Admin: 07/15/16 10:32 Dose: 1 ea - Labs Labs: 07/17/16 11:40 07/17/16 11:40 PT 13.7 Seconds (9.9-11.8) H 07/13/16 06:25 INR 1.27 (0.93-1.08) H 07/13/16 06:25 APTT 33.2 Seconds (23.7-30.8) H 07/13/16 06:25 - Constitutional Appears: Non-toxic, No Acute Distress - Head Exam Head Exam: NORMAL INSPECTION - ENT Exam ENT Exam: Mucous Membranes Moist - Neck Exam Neck Exam: absent: Lymphadenopathy, Meningismus - Respiratory Exam Respiratory Exam: Decreased Breath Sounds - Cardiovascular Exam Cardiovascular Exam: +S1, +S2 - GI/Abdominal Exam GI & Abdominal Exam: Soft. absent: Tenderness Assessment and Plan - Assessment and Plan (Free Text) Plan: Assessment severe sepsis S/P shock S/P ventilator-dependent respiratory failure with acute on chronic renal failure due to Group G strep bacteremia, probably secondary to bilateral lower extremities skin and skin structure infection; also with MSSA from the wound cultures; so far no evidence of new infection; patient is clinically improving; he was intubated for hypercarbic respiratory failure and congestion, no evidence of pneumonia currently acute rhabdomyolysis consider acute NSTEMI HTN chronic renal failure dementia obesity with BMI 38 Plan continue Rocephin (day 16 from first negative blood cx) - patient should finish 28 days of antibiotics 2D echocardiogram did not show vegetations will continue to monitor clinically
[2016-07-18] MEDS: Albuterol-Ipratrop 3 mg / 0.5 (3 ml) UD IH SCH ×3 (01:12→13:45)
[2016-07-18] MEDS: Pantoprazole 40 mg EC Tab PO SCH (06:33)
[2016-07-18] MEDS: Budesonide 0.5 mg/2 ml Inhal Susp UD IH SCH (07:18)
--- NOTE | 2016-07-18 07:29 | PN ---
DATE: 07/18/2016 SUBJECTIVE: The patient has episodes of confusion. He denies any chest pain, no shortness of breath , no headaches. PHYSICAL EXAMINATION: VITAL SIGNS: Temperature is 98, pulse of 67, blood pressure is 144/61, respirations 20, O2 saturatio n 97%. GENERAL: The patient comfortable, in no acute distress. HEENT: Anicteric sclerae. Moist mucosa. NECK: No JVD or adenopathy. CARDIAC: S1/S2. No murmurs. No rubs. Regular. RESPIRATORY: Clear to auscultation bilaterally. No wheezes, rales, or rhonchi. Good air entry. ABDOMEN: Bowel sounds are positive, soft, nontender, and nondistended. EXTREMITIES: In the lower extremities, there is trace edema. Has 1+ pulses. ASSESSMENT: 1. Delirium. 2. Hypoxia, improved. 3. Acute kidney injury, improved. 4. Non-ST elevation myocardial infarction, resolved. 5. Hypophosphatemia, resolved. 6. Transaminitis, resolved. 7. Hypernatremia, resolved. 8. Right knee injury, secondary to degenerative joint disease. 9. Left peripherally inserted central catheter line. 10. Sepsis, on intravenous antibiotics. 11. Do not resuscitate/do not intubate. PLAN: The patient is currently comfortable. The patient is receiving his Rocephin. He is on day #1 7 out of 28 of antibiotics. He did not have any signs of vegetation on echo. The patient is on hepa rin for deep venous thrombosis prophylaxis. He is on losartan for hypertension. He is going to cont inue with Protonix daily. He is on risperidone. The patient is going to continue with Tylenol as ne eded. I will speak to the patient's to give her an update. The patient is on BiPAP. He is on a heart healthy diet. Overall prognosis is guarded. Kolby Last MD cc: [id number] TT: 07/18/2016 07:29:26 Confirmation # [id number] Dictation # [id number] en
--- NOTE | 2016-07-18 07:55 | PN ---
DATE: 07/18/2016 SUBJECTIVE: The patient appears very comfortable this morning. He is not short of breath at rest. He appears less confused. PHYSICAL EXAMINATION: VITAL SIGNS: Temperature is 98.0, pulse 67, respirations 18/20, blood pressure 144/61. Oxygen saturation on nasal cannula is 97%. HEENT: Normocephalic, atraumatic. No JVD. CARDIOVASCULAR: Systolic ejection murmur at the lower left sternal border. No S3 gallop. LUNGS: Very minimal/less rhonchi. No wheezing. EXTREMITIES: Mild edema. No cyanosis, no clubbing. Calves are nontender to palpation. GASTROINTESTINAL: Abdomen is soft, nontender, nondistended. Bowel sounds are positive. SKIN: Resolving cellulitis of the lower extremities (anterior aspects). NEUROLOGIC: Limited at the present time. IMPRESSION: 1. Status post respiratory failure (multiple episodes). 2. Chronic obstructive pulmonary disease. 3. Bilateral cellulitis. 4. Severe sepsis. 5. Acute myocardial infarction. 6. Renal insufficiency. 7. Mild anemia. PLAN: The patient appears very comfortable this morning. He is not short of breath at rest. He is awake and alert. He appears less confused. On physical exam, his bronchospasm continues to resolve. In addition, the alveolar arterial gradient also continues to resolve. I will continue with the current nebulizer treatments and decrease the intravenous steroids this morning. The patient remains on antibiotic therapy -- as per infectious disease. Input by Dr. Mueller is noted. Clinical status of the patient is significantly improved - compared to the end of last week. However, again, the overall status/prognosis of this elderly patient with multiple medical problems -- remains very guarded at best. I will discuss the above with the attending physician. Ken Mancini MD cc: [id number] TT: 07/18/2016 07:54:29 Confirmation # [id number] Dictation # [id number] samuel ROSS
--- NOTE | 2016-07-18 09:21 | PN ---
DATE: 07/17/2016 SUBJECTIVE: The patient is confused, disoriented today. [place] . He is not oriented to time, place, person. He is not agitated. He is off all benzos. He gets Bi PAP in the night. Hemoglobin and hematocrit stable at 8.3 g/dL. He still has leukocytosis, currentl y on IV antibiotic. He had non-STEMI. Denies any chest pain. No shortness of breath. Lower extrem ity skin ulceration improving. REVIEW OF SYSTEMS: As per HPI. Rest of 12-point reviewed and negative. PHYSICAL EXAMINATION: GENERAL: Comfortable in bed, no acute distress, disoriented, delirious. VITAL SIGNS: Stable. Temperature 97.9, blood pressure 124/54, heart rate is 70 per minute, oxygen s aturation 98% on oxygen by nasal cannula. HEENT: Normal. NECK: No lymphadenopathy. CHEST: Air entry present, equal bilateral. No added sound. CARDIOVASCULAR: S1, S2 normal. No murmur, no gallop. ABDOMEN: Soft, nontender, obese. No rebound tenderness. EXTREMITIES: No edema. BACK: Spine normal. SKIN: Breakdown on the plantar surface of the feet bilaterally. No petechia. CENTRAL NERVOUS SYSTEM: Delirious, not alert, oriented to time, place, person, not agitated, moving all the limbs. No focal sensorimotor deficit. MEDICATIONS: Tylenol 650 q. 4 hours p.r.n., albuterol, DuoNeb q. 6 hours p.r.n., aspirin 325 mg ester y, Pulmicort q. 12 hours, ceftriaxone 1 gram daily, heparin 5000 b.i.d., hydralazine 10 mg q. 6 hours p.r.n., Cozaar 25 mg p.o. daily, Solu-Medrol 40 mg IV q. 12, metoprolol 50 mg b.i.d., Protonix 40 mg daily. ASSESSMENT: 1. Non-ST elevation myocardial infarction. 2. Chronic kidney disease. 3. Sepsis. 4. Leukocytosis. 5. Anemia. 6. Coagulopathy. PLAN: Hematology, still has leukocytosis. Hemoglobin and hematocrit stable at 8 g/dL. He has respi ratory failure, currently on BiPAP in the night. We will continue DuoNeb. Continue Solu-Medrol 40 m g q. 12 hours. He is on gastric prophylaxis with Protonix, continue that. IV antibiotic 2 grams Juan ephin, will continue that. Aspirin 325 mg daily. We will also continue deep venous thrombosis proph ylaxis with heparin 5000 q. 12. Will monitor blood counts and electrolytes closely. Troponins are n ormal now. The daughter bedside. Discussed with the daughter. Discussed with the staff nurse. Nu Bhardwaj MD cc: [id number] TT: 07/17/2016 13:30:05 Confirmation # [id number] Dictation # [id number] en
[2016-07-18] MEDS ORDERED: MethylPREDNISolone 40 mg Vial IVP SCH (10:00)
[2016-07-18] MEDS ORDERED: POLYETHYLENE GLYCOL 3350 17 GM/Dose PACKET PO SCH (10:00)
[2016-07-18] MEDS: Clotrimazole 1% Cream(30 gm) TOP SCH (10:55)
--- NOTE | 2016-07-18 15:03 | CP.PCM.PN ---
<Kenji Gonsalez - Last Filed: 07/18/16 14:56> Subjective - Date & Time of Evaluation Date of Evaluation: 07/18/16 Time of Evaluation: 14:00 - Subjective Subjective: 80 y/o male patient was seen at bedside this morning concerning healing bilateral lower extremity ulcerations. Patient was resting comfortably in bed this morning. Patient appears in NAD but not fully oriented time or person. Dressing to bilateral legs were clean dry and intact. Patient states that he does not have any blackburn to bilateral legs. Objective - Vital Signs/Intake and Output Vital Signs (last 24 hours): Temp Pulse Resp BP Pulse Ox 97.7 F 95 H 20 154/75 H 97 07/18/16 07:23 07/18/16 10:54 07/18/16 07:23 07/18/16 10:54 07/18/16 07:23 Intake and Output: 07/18/16 07/18/16 06:59 18:59 Intake Total 760 540 Output Total 300 100 Balance 460 440 - Medications Medications: Current Medications Acetaminophen (Tylenol 325mg Tab) 650 mg PO Q4 PRN PRN Reason: Fever >100.4 F Last Admin: 07/13/16 17:10 Dose: 650 mg Albuterol/Ipratropium (Duoneb 3 Mg/0.5 Mg (3 Ml) Ud) 3 ml IH [id number] [facility] Last Admin: 07/18/16 13:45 Dose: 3 ml Albuterol/Ipratropium (Duoneb 3 Mg/0.5 Mg (3 Ml) Ud) 3 ml IH Q2H PRN PRN Reason: Shortness of Breath Last Admin: 07/14/16 05:34 Dose: 3 ml Aspirin (Aspirin) 325 mg PO DAILY [facility] Last Admin: 07/18/16 10:54 Dose: 325 mg Budesonide (Pulmicort Respules) 0.5 mg IH [id number] [facility] Last Admin: 07/18/16 07:18 Dose: 0.5 mg Clotrimazole (Lotrimin 1%) 0 gm TOP BID [facility] Last Admin: 07/18/16 10:55 Dose: 1 applic Heparin Sodium (Porcine) (Heparin) 5,000 units SC Q12 SARAH PRN Reason: Protocol Last Admin: 07/12/16 21:43 Dose: 5,000 units Hydralazine HCl (Apresoline) 10 mg IVP Q6 PRN PRN Reason: Systolic Blood Pressure Last Admin: 07/10/16 09:56 Dose: 10 mg Ceftriaxone Sodium (Rocephin 2 Gm Ivpb) 100 mls @ 100 mls/hr IVPB DAILY SARAH PRN Reason: Protocol Stop: 07/27/16 10:01 Last Admin: 07/18/16 10:55 Dose: 100 mls/hr Losartan Potassium (Cozaar) 25 mg PO DAILY [facility] Last Admin: 07/18/16 10:54 Dose: 25 mg Methylprednisolone (Solu-Medrol) 30 mg IVP Q12 SARAH Last Admin: 07/18/16 10:55 Dose: 30 mg Metoprolol Tartrate (Lopressor) 50 mg PO 0800,1800 [facility] Last Admin: 07/18/16 08:03 Dose: 50 mg Pantoprazole Sodium (Protonix Ec Tab) 40 mg PO ACB [facility] Last Admin: 07/18/16 06:33 Dose: 40 mg Polyethylene Glycol (Miralax) 17 gm PO DAILY [facility] Last Admin: 07/18/16 10:55 Dose: 17 gm Risperidone (Risperdal Tab) 0.5 mg PO AMHS PRN; Protocol PRN Reason: Agitation Vitamin A (Vitamin A & D Oint Ud Foilpak) 1 ea TOP BID PRN PRN Reason: chapped lips Last Admin: 07/15/16 10:32 Dose: 1 ea - Labs Labs: 07/17/16 11:40 07/17/16 11:40 PT 13.7 Seconds (9.9-11.8) H 07/13/16 06:25 INR 1.27 (0.93-1.08) H 07/13/16 06:25 APTT 33.2 Seconds (23.7-30.8) H 07/13/16 06:25 - Constitutional Appears: Well, Non-toxic, No Acute Distress - Extremities Exam Additional comments: Bilateral lower extremities exam DERM: Previous Superficial ulcerations to Left leg appears to be healed. No open wound is noted. No drainage noted, no purulent discharge noted. No erythema noted around the wound. No sign of acute infection is noted. Previous superficial ulceration to Right leg appears to be healed. No open wound is noted. No drainage noted. No pus noted. No mal-odor noted. No erythema is noted around the wound. No sign of infection is noted. VASC: nonpalpable pedal pulses bilaterally, TG wnl, CFT < 3 sec to all digits NEURO: grossly diminished ORTHO: no pain on palpation of foot or legs bilaterally - Neurological Exam Neurological Exam: Awake - Psychiatric Exam Psychiatric exam: Normal Affect, Normal Mood - Skin Skin Exam: Normal Color, Warm Assessment and Plan - Assessment and Plan (Free Text) Assessment: 80 y/o male presents with healing superficial ulcerations to bilateral lower extremity Plan: patient evaluated and seen at bedside discussed in detail with Dr. Hay labs and vitals reviewed Legs cleansed with sterile saline, dressed with foam dressings applied multipodus offloading boots to patients heels podiatry will continue to monitor while patient remains in house <Megan Hay - Last Filed: 07/29/16 12:49> Objective - Vital Signs/Intake and Output Vital Signs (last 24 hours): Temp Pulse Resp BP Pulse Ox 97.8 F 77 20 158/60 H 96 07/18/16 16:00 07/18/16 16:00 07/18/16 16:00 07/18/16 16:00 07/18/16 16:00 - Labs Labs: 07/17/16 11:40 07/17/16 11:40 PT 13.7 Seconds (9.9-11.8) H 07/13/16 06:25 INR 1.27 (0.93-1.08) H 07/13/16 06:25 APTT 33.2 Seconds (23.7-30.8) H 07/13/16 06:25 Attending/Attestation - Attestation I have personally seen and examined this patient.: Yes I have fully participated in the care of the patient.: Yes I have reviewed all pertinent clinical information, including history, physical exam and plan: Yes
--- NOTE | 2016-07-18 15:25 | PN ---
DATE: 07/18/2016 SUBJECTIVE: The patient is lying in bed. He remains confused, but less agitated than previous. The re are no complaints of chest pain or shortness of breath. OBJECTIVE: VITAL SIGNS: Blood pressure 154/75, pulse 95, temperature 97.7, respiratory rate 20. LUNGS: Clear. HEART: Regular rate and rhythm. ABDOMEN: Soft, nontender, bowel sounds are normoactive. EXTREMITIES: With decreased dependent edema. NEUROLOGIC: The patient is awake and confused without focal sensory or motor deficits. SKIN: Warm and dry. IMPRESSION: 1. Hypertension, hypertensive cardiovascular disease and congestive heart failure. 2. Coronary artery disease, status post non-ST segment elevation myocardial infarction. 3. Acute rhabdomyolysis with acute renal failure superimposed on chronic kidney disease, improved. 4. Status post sepsis, presumed secondary to cellulitis of the lower extremities with chronic venous stasis ulcers, improving. 5. Paroxysmal atrial fibrillation with intermittent rapid ventricular response. 6. Dementia with superimposed delirium, improving. 7. Immobility secondary to severe degenerative joint disease, obesity, deconditioning. 8. Anemia. 9. Hyperglycemia. PLAN: Continue present treatment. Pulmonary, cardiology and infectious disease followup. Out of be d as tolerated. Social work for discharge planning. Leonid Calderón JD, MD cc: [phone] TT: 07/18/2016 15:23:57 Confirmation # [id number] Dictation # [id number] larry
--- NOTE | 2016-07-18 15:32 | PN ---
DATE: 07/18/2016 SUBJECTIVE: Shortly, the patient is an 80-year-old male with multiple medical problems who was admitted on the medical floor status post septic shock. The patient was seen by this television script writer for evaluation of delirium stage. This television script writer initiated Risperdal, discussed the plan with the patient' s . The patient's permitted to give Risperdal. The patient was seen by Dr. Blakc over the weekend and this television script writer is following the patient up. The patient was seen today. The patient presen earl to be alert, oriented in self, place, but off time. The patient said that he remembers this writ er from the medical floor, but this television script writer doubts. The patient presented with much improvement to co jenna with last week. The patient was able to have a meaningful conversation. The patient denied be ing depressed, denied thoughts of harming himself or others, denied intent or plan. The patient repo rted to have good appetite and sleep. The patient denied hearing voices, denied seeing things, but a s per nursing staff report, patient had episodes when he has visual hallucinations. Earlier today th e patient was seeing his when she was not there. VITAL SIGNS: Stable. Temperature 97.7, pulse 95, blood pressure 154/75, respirations 20, saturation is 97. MEDICATIONS: Reviewed. Tylenol, DuoNeb, aspirin, Pulmicort, Rocephin 2 grams IV push daily, Lotrimi n, heparin, Cozaar, Solu-Medrol, Lopressor, Protonix, MiraLax, Risperdal 0.5 mg twice a day as needed for agitation. The patient's last dose of Risperdal 07/15. PLAN: Considering the fact that patient is improving without Risperdal gives this television script writer hope that d nicky is clearing. This television script writer reviewed previous notes from Dr. Last. The patient will be tra nsferred to [facility] for subacute rehab. MENTAL STATUS EXAMINATION: The patient appears to be alert, oriented in self and place. Fair eye co ntact. Speech was normal rate, tone, quality, and quantity. Mood described as "I'm not depressed." Affect was constricted, but reactive, mood congruent. The patient is aware that he is going to be t ransferred to subacute rehab today. Mood described as "I'm okay." Thought process was coherent and more goal directed. Thought content: The patient denied visual, auditory, tactile hallucinations, d enied paranoid ideations, but as per nursing staff, the patient was seeing things. Insight and judgm ent are improving. Impulses are well controlled. IMPRESSION: Delirium due to general medical condition, which is improving; hypoxia, improving; acute kidney injury is improving; non-ST elevation myocardial infarction, resolved; transaminitis; hypern atremia; right knee injury; sepsis. The patient is on intravenous antibiotics. The patient is DNI a nd DNR. PLAN: Continue current management. Continue current medications. The patient needs to be on Risper dayron as needed for psychosis. The patient needs to be seen by a psychiatrist in the facility within 1 week after discharge. Should you have any questions, give me a call back. Overall, prognosis is po or. Thank you very much for letting me participate in care of your patient. Barbara Grissom MD cc: [phone] TT: 07/18/2016 15:31:03 Confirmation # [id number] Dictation # [id number] ángela
[2016-07-18 16:22] VITALS: BP 158/60; PULSE 77; TEMP 97.8; O2SAT 96
--- NOTE | 2016-07-19 08:26 | PN ---
DATE: 07/18/2016 The patient is in bed in no acute distress, nontoxic. No fevers, no chills. The patient was seen ea rlier today in 562, bed 1. PHYSICAL EXAMINATION: VITAL SIGNS: Temperature is 97, blood pressure is 150/60, respiratory rate of 20, heart rate of 77. HEENT: Unremarkable. NECK: Supple. LUNGS: Have decreased breath sounds. HEART: Sounds normal S1, S2. ABDOMEN: Soft. LABORATORY DATA: Reveals a white count of 14,000, hemoglobin of 8, platelets of 298. Chemistries re veal the BUN of , creatinine of 1.5. Urinalysis is noted. Serology is noted. Review of the orders reveals the patient to be on ceftriaxone. ASSESSMENT AND PLAN: An 80-year-old male who was seen earlier this morning in room 562, bed 1 with s evere sepsis, status post shocks, status post , apparent respiratory failure with acute on chron ic renal failure due to group G strep bacteremia probably secondary to bilateral lower extremity skin and skin structure infection, also with MSSA from the wound culture, so far no evidence of new infec tion. The patient is clinically improving and currently on daptomycin day #17. Would complete 28 da ys of antibiotics with the repeat echo did not show any vegetations. We will follow closely with you . Wally Wylie MD cc: [id number] TT: 07/18/2016 18:33:40 Confirmation # [id number] Dictation # [id number] mn
--- NOTE | 2016-08-07 23:28 | CP.PCM.PN ---
Subjective - Date & Time of Evaluation Date of Evaluation: 07/09/16 Time of Evaluation: 10:00 - Subjective Subjective: DATE: 07/09/2016 SUBJECTIVE: He is comfortable in bed, in no acute distress. He is getting BiPAP in the night. He has non-STEMI. Cardiac enzymes are improving. Also has sepsis, treated with IV antibiotics. He developed acute respiratory acidosis, secondary to respiratory failure. Denies any shortness of breath. He also gets delirious. Currently, oriented to time, place, person. Psych following. He also had hypernatremia, which is improved. Has anemia with low hemoglobin around 8 g/dL. He has leukocytosis.. REVIEW OF SYSTEMS: As per HPI. Rest of 12-point reviewed and negative. PHYSICAL EXAMINATION: GENERAL: Comfortable in bed, in no acute distress. VITAL SIGNS: reviewed. HEENT: Normal. LUNGS: Clear to auscultation. Air entry present, equal bilateral. CARDIOVASCULAR: S1 and S2 normal. No murmur, no gallop. ABDOMEN: Soft, nontender, obese. MUSCULOSKELETAL: 1+ bilateral pedal edema, ankle edema. Bilateral chronic skin changes on both feet. NEUROLOGIC: Awake, alert, oriented to place, not to time. Conversant. No focal sensorimotor deficit. PSYCHIATRIC: Episodic episodes of delirium. Currently alert, oriented. LYMPHADENOPATHY: None. LABORATORIES: White count 7.3, hemoglobin 8.5, hematocrit 27.2, platelet count 283. Sodium 141, potassium 4.3, creatinine 1.9, glucose 171, calcium 9.6, total bilirubin 0.6. MEDICATIONS: Tylenol 650 q. 6 hours p.r.n., DuoNeb q. 6 hours p.r.n., aspirin 81 mg daily, ceftriaxone 2 grams daily, local application, heparin 5000 units subQ q. 12, Cozaar 25 mg daily, Solu-Medrol 40 q. 12, IV Lopressor 50 mg p.o. b.i.d., Protonix 40 mg daily, Risperdal 2.5 mg, vitamin A topical. ASSESSMENT: 1. Non-ST elevation myocardial infarction. 2. Delirium. 3. Leukocytosis. 4. Anemia. 5. Coagulopathy. 6. Chronic kidney disease stage III. 7. Sepsis. PLAN: He is currently comfortable, coagulopathy improved. He is on BiPAP in the night for respiratory failure. Renal function is improving. Electrolytes normal. Heme; He has leukocytosis and anemia. Hemoglobin stable at 8.3 g/dL. Will transfuse packed red blood cells if hemoglobin declines below 8. Anemia is multifactorial, chronic disease, iron deficiency and chronic kidney disease. He is currently on IV antibiotic, Rocephin. ID following. Deep venous thrombosis with 5000 units heparin b.i.d. Non-ST elevation myocardial infarction. Cardiac enzymes declining, no issues, conservative management, cardiology following. Nu Bhardwaj MD Objective - Vital Signs/Intake and Output Vital Signs (last 24 hours): Temp Pulse Resp BP Pulse Ox 97.8 F 77 20 158/60 H 96 07/18/16 16:00 07/18/16 16:00 07/18/16 16:00 07/18/16 16:00 07/18/16 16:00 - Labs Labs: 07/17/16 11:40 07/17/16 11:40 PT 13.7 Seconds (9.9-11.8) H 07/13/16 06:25 INR 1.27 (0.93-1.08) H 07/13/16 06:25 APTT 33.2 Seconds (23.7-30.8) H 07/13/16 06:25
--- NOTE | 2016-08-17 10:49 | DS ---
This is an 80-year-old male who came to the hospital who had non-ST elevation [place]. The patient had ac [place] kidney injury. He was hypoxic. He had improvement of his symptoms and was discharged to [facility]. Please see the note dictated on 07/31/2016 for further details. The patient's family was updated. Kolby Last MD cc: [id number] TT: 08/17/2016 10:48:37 jn
== END 2016-07-18 18:33 | DRG 871 ==
LOC: ED 02:21 → ERH 06:18 → 2RSO 18:17 → CCU 07-04 14:54 → 2RNO 07-07 12:47 → CCU 07-08 07:59 → 2RNO 07-10 13:03 → 2RSO 07-11 01:03 → 2RNO 07-11 01:04 → 5RNO 07-15 17:01
PROVIDERS: ADMIT Internal Medicine Nephrology; ATTEND Internal Medicine Nephrology
PROC: 3E0U33Z Introduction of Anti-inflammatory into Joints, Percutaneous Approach (ICD-10-PCS; 2016-06-29)
PROC: 3E0U3BZ Introduction of Anesthetic Agent into Joints, Percutaneous Approach (ICD-10-PCS; 2016-06-29)
PROC: 0BH18EZ Insertion of Endotracheal Airway into Trachea, Via Natural or Artificial Opening Endoscopic (ICD-10-PCS; principal; 2016-07-04)
PROC: 5A1935Z Respiratory Ventilation, Less than 24 Consecutive Hours (ICD-10-PCS; 2016-07-04)
PROC: 02HV33Z Insertion of Infusion Device into Superior Vena Cava, Percutaneous Approach (ICD-10-PCS; 2016-07-04)
PROC: B548ZZA Ultrasonography of Superior Vena Cava, Guidance (ICD-10-PCS; 2016-07-04)
PROC: B51NZZA Fluoroscopy of Left Upper Extremity Veins, Guidance (ICD-10-PCS; 2016-07-04)
PROC: 0BH18EZ Insertion of Endotracheal Airway into Trachea, Via Natural or Artificial Opening Endoscopic (ICD-10-PCS; 2016-07-08)
PROC: 5A1935Z Respiratory Ventilation, Less than 24 Consecutive Hours (ICD-10-PCS; 2016-07-08)
DX: A41.9 Sepsis, unspecified organism (principal); I21.4 Non-ST elevation (NSTEMI) myocardial infarction; R65.21 Severe sepsis with septic shock; N17.9 Acute kidney failure, unspecified; G92 Toxic encephalopathy; J96.02 Acute respiratory failure with hypercapnia; J96.01 Acute respiratory failure with hypoxia; D68.9 Coagulation defect, unspecified; N18.3 Chronic kidney disease, stage 3 (moderate); K92.2 Gastrointestinal hemorrhage, unspecified; E87.2 Acidosis; L97.909 Non-pressure chronic ulcer of unspecified part of unspecified lower leg with unspecified severity; M62.82 Rhabdomyolysis; I13.0 Hypertensive heart and chronic kidney disease with heart failure and stage 1 through stage 4 chronic kidney disease, or unspecified chronic kidney disease; L03.115 Cellulitis of right lower limb; L03.116 Cellulitis of left lower limb; E87.0 Hyperosmolality and hypernatremia; F01.51 Vascular dementia, unspecified severity, with behavioral disturbance; F05 Delirium due to known physiological condition; T83.83XA Hemorrhage due to genitourinary prosthetic devices, implants and grafts, initial encounter; I50.9 Heart failure, unspecified; W19.XXXA Unspecified fall, initial encounter; E11.22 Type 2 diabetes mellitus with diabetic chronic kidney disease; B95.4 Other streptococcus as the cause of diseases classified elsewhere; B95.61 Methicillin susceptible Staphylococcus aureus infection as the cause of diseases classified elsewhere; J44.9 Chronic obstructive pulmonary disease, unspecified; I83.009 Varicose veins of unspecified lower extremity with ulcer of unspecified site; M16.11 Unilateral primary osteoarthritis, right hip; M17.11 Unilateral primary osteoarthritis, right knee; N20.0 Calculus of kidney; I73.9 Peripheral vascular disease, unspecified; R32 Unspecified urinary incontinence; I48.0 Paroxysmal atrial fibrillation; B96.89 Other specified bacterial agents as the cause of diseases classified elsewhere; D64.9 Anemia, unspecified; E11.622 Type 2 diabetes mellitus with other skin ulcer; E11.65 Type 2 diabetes mellitus with hyperglycemia; E61.1 Iron deficiency; E66.01 Morbid (severe) obesity due to excess calories; E83.39 Other disorders of phosphorus metabolism; H26.9 Unspecified cataract; H91.90 Unspecified hearing loss, unspecified ear; I25.10 Atherosclerotic heart disease of native coronary artery without angina pectoris; I25.2 Old myocardial infarction; I45.10 Unspecified right bundle-branch block; S91.302A Unspecified open wound, left foot, initial encounter; Y92.009 Unspecified place in unspecified non-institutional (private) residence as the place of occurrence of the external cause; Y84.6 Urinary catheterization as the cause of abnormal reaction of the patient, or of later complication, without mention of misadventure at the time of the procedure; Z68.38 Body mass index [BMI] 38.0-38.9, adult; Z66 Do not resuscitate; Z74.01 Bed confinement status; Z78.1 Physical restraint status; Z87.442 Personal history of urinary calculi; Z87.891 Personal history of nicotine dependence; Z91.81 History of falling; Z93.1 Gastrostomy status; R40.2412 Glasgow coma scale score 13-15, at arrival to emergency department; R55 Syncope and collapse; S80.219A Abrasion, unspecified knee, initial encounter; Z98.49 Cataract extraction status, unspecified eye; R44.1 Visual hallucinations; G31.9 Degenerative disease of nervous system, unspecified; R53.81 Other malaise; M51.36 Other intervertebral disc degeneration, lumbar region; R79.82 Elevated C-reactive protein (CRP); R80.9 Proteinuria, unspecified; R06.89 Other abnormalities of breathing; T42.4X5A Adverse effect of benzodiazepines, initial encounter; Z88.8 Allergy status to other drugs, medicaments and biological substances

== ENCOUNTER 2018-02-28 14:57 | Inpatient (IN) | payer MEDICARE, BC ==
--- NOTE | 2018-02-28 15:19 | ED PDOC ---
Arrival/HPI - General Chief Complaint: Lower Extremity Problem/Injury - History of Present Illness Narrative History of Present Illness (Text): 02/28/18 15:53 82 y/o male with PMH of HTN and PAD sent to the ED by his display designer outside for evaluation of a left foot wound with surrounding redness and swelling. Pt was seen by display designer outside Dr. Almendarez today at home and discovered to have a worsening left foot 2nd digit wound with associated cellulitis of the foot and lower leg. Per patient, he scraped it two days ago on the wooden floor and since then the toe has become black and the wound is bleeding and draining yellow fluid. Associated swelling and redness of the left foot and left lower leg. Dr. Almendarez typically visits the home every few weeks for care of patient's chronic left h eel wound but sent pt here for evaluation after noticing the new wound on the 2nd left digit. Patient is ambulating per baseline. Denies fevers, chills, N/V, headache, dizziness, leg or foot pain, numbness, paresthesias, weakness, or any other associated symptoms. Past Medical History - Provider Review Nursing Documentation Reviewed: Yes - Past History Past History: Non-Contributing - Cardiac Hx Hypertension: Yes - Pulmonary Hx Respiratory Disorders: No - Neurological Hx Neurological Disorder: No - HEENT Hx Cataracts: Yes (bilateral surgery) Hx Deafness: Yes (bilateral hearing aids) Other/Comment: eye glasses for driving and reading - Renal Hx Kidney Stones: Yes (many years ago) - Hematological/Oncological Hx Blood Disorders: No - Musculoskeletal/Rheumatological Hx Falls: Yes - Psychiatric Hx Substance Use: No - Surgical History Other/Comment: pilonidal cyst Family/Social History - Physician Review Nursing Documentation Reviewed: Yes Family/Social History: No Known Family HX Smoking Status: Former Smoker Hx Alcohol Use: No Hx Substance Use: No Allergies/Home Meds Allergies/Adverse Reactions: Allergies alprazolam [From Xanax] Adverse Reaction (Severe, Verified 02/28/18 15:04) SHORTNESS OF BREATH ativan Adverse Reaction (Severe, Uncoded 02/28/18 15:04) SHORTNESS OF BREATH Respiratory failure , sleepiness Morphine Sulfate Adverse Reaction (Severe, Uncoded 02/28/18 15:04) SHORTNESS OF BREATH Home Medications: Home Meds Medication Instructions Recorded Confirmed Losartan Potassium [Cozaar] 25 mg PO DAILY 06/29/16 02/28/18 Aspirin [Ecotrin] 81 mg PO DAILY 02/28/18 02/28/18 amLODIPine [Norvasc] 5 mg PO BID 02/28/18 02/28/18 Review of Systems - Physician Review All systems were reviewed & negative as marked: Yes - Review of Systems Constitutional: Normal. absent: Fevers Eyes: Normal. absent: Vision Changes ENT: Normal. absent: Sinus Congestion Respiratory: Normal. absent: SOB, Cough Cardiovascular: Normal. absent: Chest Pain, Palpitations Gastrointestinal: Normal. absent: Abdominal Pain, Nausea, Vomiting Genitourinary Male: Normal Musculoskeletal: Other (left foot wound) Skin: Cellulitis (left lower leg and foot). absent: Abscess Neurological: Normal. absent: Headache, Dizziness Endocrine: Normal Hemo/Lymphatic: Normal Psychiatric: Normal Physical Exam Vital Signs Reviewed: Yes Vital Signs Temp Pulse Resp BP Pulse Ox 02/28/18 15:06 98.0 F 47 L 18 189/74 H 100 Temperature: Afebrile Blood Pressure: Normal Pulse: Bradycardic Respiratory Rate: Normal Appearance: Positive for: Well-Appearing, Non-Toxic, Comfortable Pain Distress: None Mental Status: Positive for: Alert and Oriented X 3 - Systems Exam Head: Present: Atraumatic, Normocephalic Pupils: Present: PERRL Extroacular Muscles: Present: EOMI Conjunctiva: Present: Normal Mouth: Present: Moist Mucous Membranes Pharnyx: Present: Normal Neck: Present: Normal Range of Motion Respiratory/Chest: Present: Clear to Auscultation, Good Air Exchange. No: Respiratory Distress, Accessory Muscle Use Cardiovascular: Present: Regular Rate and Rhythm, Normal S1, S2. No: Murmurs Abdomen: No: Tenderness, Distention, Peritoneal Signs Back: Present: Normal Inspection Upper Extremity: Present: Normal Inspection, Normal ROM, NORMAL PULSES, Neurovascularly Intact, Capillary Refill < 2s. No: Cyanosis, Edema, Tenderness, Swelling, Erythema Lower Extremity: Present: Normal Inspection, Normal ROM, Swelling (left foot), Erythema (left lower anterior leg and foot), Temperature Abnormalties (left lower leg and foot warm to touch), Neurovascularly Intact, Capillary Refill < 2 s, Other (1cm x 1cm wound on dorsal 2nd digit, left foot over PIP joint. Wound is open, bleeding, small amount of yellow drainage. Digit is black and blue, discolored to the base; left heel chronic wound, no signs of infection ). No: Edema, CALF TENDERNESS, Tenderness, Deformity Neurological: Present: GCS=15, CN II-XII Intact, Speech Normal, Motor Func Grossly Intact, Normal Sensory Function, Gait Normal, Memory Normal Skin: Present: Warm, Dry, Normal Color, Hot (left lower leg). No: Rashes Lymphatic: No: Cervical Adenopathy Psychiatric: Present: Alert, Oriented x 3, Normal Insight, Normal Concentration, Normal Affect, Normal Mood Medical Decision Making ED Course and Treatment: 02/28/18 15:00 Initial Plan: * CBC, CMP * Coags * EKG * Left foot XR * Wound culture * Blood cultures * IV Vancomycin * IV Zosyn CBC: WBC 11.7, otherwise unremarkable CMP: K 5.1, otherwise unremarkable 15:15 Spoke with Podiatry resident Dr. Rodrigues, states podiatry will see the patient tomorrow morning. Advises dry dressing over wound for now. 16:[address] Esther Ward, who accepted patient for inpatient admission to med/surg floor. Discussed plan of care with patient and family who agree and understand the necessity of admission. Patient continues to be A&Ox3 with stable vital signs. - Lab Interpretations Narrative Lab Interpretation (Text): 02/28/18 17:28 02/28/18 15:41 02/28/18 15:41 Lab Results 02/28/18 15:41: Sodium 139, Potassium 5.1 H, Chloride 104, Carbon Dioxide 29, Anion Gap 12, BUN 36 H, Creatinine 1.5, Est GFR ( Amer) 54, Est GFR (Non- Af Amer) 45, Random Glucose 116 H, Calcium 9.0, Total Bilirubin 0.5, AST 26, ALT 23, Alkaline Phosphatase 101, Total Protein 7.0, Albumin 3.7, Globulin 3.3, Albumin/Globulin Ratio 1.1 02/28/18 15:41: PT 14.8 H, INR 1.29, APTT 34.7 02/28/18 15:41: WBC 11.7 H, RBC 4.43, Hgb 12.0 L, Hct 36.8 L, MCV 83.1, MCH 27.1, MCHC 32.6, RDW 13.3, Plt Count 197, MPV 8.4, Gran % 76.1 H, Lymph % (Auto) 11.7 L, Victoria % (Auto) 10.4 H, Eos % (Auto) 1.7, Baso % (Auto) 0.1, Gran # 8.90 H, Lymph # (Auto) 1.4, Victoria # (Auto) 1.2 H, Eos # (Auto) 0.2, Baso # (Auto) 0.01 I have reviewed the lab results: Yes - RAD Interpretation Narrative RAD Interpretations (Text): 02/28/18 17:28 Left Foot Xray: FINDINGS: BONES: There is no acute displaced fracture or bone destruction. Bone alignment is normal. There is diffuse bone demineralization. There is a prominent plantar calcaneal spur. 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 There is also moderate degenerative osteoarthrosis in the 1st interphalangeal and MTP joints. SOFT TISSUES: There is diffuse soft tissue swelling in the foot. OTHER FINDINGS: Atherosclerotic vascular calcifications are present. IMPRESSION: No evidence for bone erosion or destruction to suggest osteomyelitis. Diffuse soft tissue swelling in the foot may represent cellulitis. If clinically indicated an MRI may be performed for further evaluation. Radiology Orders: 02/28/18 15:11 FOOT LEFT 3 VIEWS ROUTINE [RAD] Stat Director Zone: Radiologist - EKG Interpretation EKG Interpretation (Text): 02/28/18 17:24 rate 62; NSR with 1st degree AV block; RBBB; No ST elevations/depressions or other signs of acute ischemia. Compared with prior EKG, no acute changes. Interpreted by ED Physician: Yes Type: 12 lead EKG Comparison: Com.w/previous EKG Disposition/Present on Arrival - Present on Arrival Any Indicators Present on Arrival: No History of DVT/PE: No History of Uncontrolled Diabetes: No Urinary Catheter: No History of Decub. Ulcer: No History Surgical Site Infection Following: None - Disposition Have Diagnosis and Disposition been Completed?: Yes Diagnosis: Wound cellulitis Disposition: HOSPITALIZED Disposition Time: 16:20 Patient Plan: Admission Patient Problems: Current Active Problems Problem Status Onset Wound cellulitis Acute Condition: STABLE
[2018-02-28] MEDS ORDERED: Piperacillin/Tazobact 3.375 gm 100 ML IVPB STA (15:33)
[2018-02-28] MEDS ORDERED: Vancomycin 1gm in NS 250ml 1 GM/250 ML BAG IVPB STA (15:35)
[2018-02-28 15:49] LABS: BASO # 0.01 K/mm3 (0.0-2.0); BASO % 0.1 % (0.0-3.0); EOS # 0.2 (0.0-0.7); EOS % 1.7 % (1.5-5.0); GRAN # 8.9 (1.4-6.5); GRAN % 76.1 % (50.0-68.0); LYMPH # 1.4 (1.2-3.4); LYMPH % 11.7 % (22.0-35.0); MEAN CELL VOLUME 83.1 fl (80.0-105.0); MEAN CORPUSCULAR HEMOGLOBIN 27.1 pg (25.0-35.0); MEAN CORPUSCULAR HGB CONC 32.6 g/dl (31.0-37.0); MEAN PLATELET VOLUME 8.4 fl (7.0-11.0); MONO # 1.2 (0.1-0.6); MONO % 10.4 % (1.0-6.0); RBC 4.43 10^6/uL (3.5-6.1); RED CELL DISTRIBUTION WIDTH 13.3 % (11.5-14.5); WHITE BLOOD COUNT 11.7 10^3/uL (4.5-11.0)
[2018-02-28 15:55] LABS: INR 1.29; PARTIAL THROMBOPLASTIN TIME 34.7 Seconds (25.1-36.5); PROTHROMBIN TIME 14.8 SECONDS (9.4-12.5)
[2018-02-28 16:00] LABS: ALB/GLOB RATIO 1.1 (1.1-1.8); ALBUMIN 3.7 g/dL (3.0-4.8)
--- NOTE | 2018-02-28 17:15 | CP.PCM.HP ---
History of Present Illness - History of Present Illness History of Present Illness: HISTORY & PHYSICAL NOTE FOR HOSPITALIST TEAM Tiffanie Cross PGY-1 CC: LLE extremity ulcer/L 2nd distal phalanx gangrene 82 y/o M with PMHx of peripheral artery disease, chronic LLE celluiltis, COPD, HTN, dementia, obesity presents to [facility] with complaints of LLE anterior tibial region cellulitis and black L foot 2nd distal phalanx. He reports that he noticed the black toe about 2 days ago when he scraped it while getting up however hes been getting treatment by Dr. Almendarez (patient resource coordinator) at home every 2-3 weeks for L heel ulcers for the past 1.5 years with silvadene and xeroform treatments. Dr Almendarez had visited him today and instructed him to go to ER for further treatment. He denies pain or discomfort to the area. He reports he had been scratching the region which is why there are scabs. He walks at home regularly with a walker, denies calf pain when walking. Per at bedside, he previously had taken aspirin but stopped because he was scratching himself and noticed excessive bleeding. He report having 1 episode of brown diarrhea yesterday. He denies recent oral antibiotics. He denies fevers, chills, headache dizziness, chest pain, palpitations, shortness of breath, nausea, vomiting, constipation, diarrhea, dysuria. PMHx: PAD, LE cellulitis, HTN, COPD, CAD, All: Opioids (leads to respiratory failure) PSH: denies FH: Mother: PAD, "heart problems." Father: CHF Meds: amlodipine 5mg qd, losartan 25mg qd PMD: Dr. Alvarez ([place]) Pharmacy: [facility] ([place]) Present on Admission - Present on Admission Any Indicators Present on Admission: No Review of Systems - Review of Systems Review of Systems: per HPI Past Patient History - Past Medical History & Family History Past Medical History?: Yes - Past Social History Smoking Status: Former Smoker - CARDIAC Hx Hypertension: Yes - PULMONARY Hx Respiratory Disorders: No - NEUROLOGICAL Hx Neurological Disorder: No - HEENT Hx Cataracts: Yes (bilateral surgery) Hx Deafness: Yes (bilateral hearing aids) Other/Comment: eye glasses for driving and reading - RENAL Hx Kidney Stones: Yes (many years ago) - HEMATOLOGICAL/ONCOLOGICAL Hx Blood Disorders: No - MUSCULOSKELETAL/RHEUMATOLOGICAL Hx Falls: Yes - PSYCHIATRIC Hx Substance Use: No - SURGICAL HISTORY Other/Comment: pilonidal cyst Meds Allergies/Adverse Reactions: Allergies Allergy/AdvReac Type Severity Reaction Status Date / Time alprazolam [From Xanax] AdvReac Severe SHORTNESS Verified 02/28/18 15:04 OF BREATH ativan AdvReac Severe SHORTNESS Uncoded 02/28/18 15:04 OF BREATH Morphine Sulfate AdvReac Severe SHORTNESS Uncoded 02/28/18 15:04 OF BREATH Physical Exam - Constitutional Appears: Well, Non-toxic, No Acute Distress - Head Exam Head Exam: NORMAL INSPECTION, NORMOCEPHALIC - Eye Exam Eye Exam: EOMI, Normal appearance - ENT Exam ENT Exam: Mucous Membranes Moist, Normal Exam - Neck Exam Neck exam: Positive for: Normal Inspection - Respiratory Exam Respiratory Exam: Clear to Auscultation Bilateral, NORMAL BREATHING PATTERN - Cardiovascular Exam Cardiovascular Exam: REGULAR RHYTHM, +S1, +S2 - GI/Abdominal Exam GI & Abdominal Exam: Distended, Soft. absent: Rebound, Rigid, Tenderness - Extremities Exam Extremities exam: Negative for: calf tenderness Additional comments: L anterior tibial region erythema without purulence or drainage. Black healed linear eschar noted Black L foot 2nd distal phalanx, with dark red bloody discharge. L heel chronic ulcer noted, not erythematous - Back Exam Back exam: NORMAL INSPECTION - Neurological Exam Neurological exam: Alert, Oriented x3 - Psychiatric Exam Psychiatric exam: Normal Affect, Normal Mood - Skin Skin Exam: Dry, Intact, Warm Results - Vital Signs Recent Vital Signs: Last Vital Signs Temp 98.0 F 02/28/18 15:06 Pulse 50 L 02/28/18 16:24 Resp 18 02/28/18 16:24 BP 145/68 02/28/18 16:24 Pulse Ox 100 02/28/18 16:24 - Labs Result Diagrams: 02/28/18 15:41 02/28/18 15:41 Labs: Laboratory Results - last 24 hr 02/28/18 02/28/18 02/28/18 15:41 15:41 15:41 WBC 11.7 H RBC 4.43 Hgb 12.0 L Hct 36.8 L MCV 83.1 MCH 27.1 MCHC 32.6 RDW 13.3 Plt Count 197 MPV 8.4 Gran % 76.1 H Lymph % (Auto) 11.7 L Lee % (Auto) 10.4 H Eos % (Auto) 1.7 Baso % (Auto) 0.1 Gran # 8.90 H Lymph # (Auto) 1.4 Lee # (Auto) 1.2 H Eos # (Auto) 0.2 Baso # (Auto) 0.01 PT 14.8 H INR 1.29 APTT 34.7 Sodium 139 Potassium 5.1 H Chloride 104 Carbon Dioxide 29 Anion Gap 12 BUN 36 H Creatinine 1.5 Est GFR ( Amer) 54 Est GFR (Non-Af Amer) 45 Random Glucose 116 H Calcium 9.0 Total Bilirubin 0.5 AST 26 ALT 23 Alkaline Phosphatase 101 Total Protein 7.0 Albumin 3.7 Globulin 3.3 Albumin/Globulin Ratio 1.1 Assessment & Plan - Assessment and Plan (Free Text) Assessment: 2 y/o M with PMHx of peripheral artery disease, chronic LLE celluiltis, COPD, HTN, dementia, obesity admitted L foot 2nd distal phalanx questionable gangrene and LLE cellulitis Plan: L foot 2nd distal phalanx osteomyelitis/LLE cellulitis empiric vancomycin/zosyn start aspirin LE arterial doppler studies WALKER podiatry consult vascular surgery consult f/u L foot xray f/u foot MRI f/u wound culture f/u blood culture f/u procalcitonin consult ID, appreciate recs Hx of Hypertension Continue home amlodipine, aspirin and losartan DVT/GI PPx: Hep/protonix Case seen, examined and discussed with attending physician, Dr. Barbosa
--- NOTE | 2018-02-28 17:30 | RAD ---
Date of service: 02/28/2018 PROCEDURE: Left Foot Radiographs. HISTORY: r/o osteomyelitis, wound 2nd digit COMPARISON: None. FINDINGS: BONES: There is no acute displaced fracture or bone destruction. Bone alignment is normal. There is diffuse bone demineralization. There is a prominent plantar calcaneal spur. 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 There is also moderate degenerative osteoarthrosis in the 1st interphalangeal and MTP joints. SOFT TISSUES: There is diffuse soft tissue swelling in the foot. OTHER FINDINGS: Atherosclerotic vascular calcifications are present. IMPRESSION: No evidence for bone erosion or destruction to suggest osteomyelitis. Diffuse soft tissue swelling in the foot may represent cellulitis. If clinically indicated an MRI may be performed for further evaluation.
[2018-02-28 19:57] VITALS: BMI 31.8
[2018-02-28] MEDS ORDERED: Influenza Vaccine 60 mcg/0.5 mL SYR (4YR UP) IM ONE (19:58)
[2018-02-28] MEDS ORDERED: Pneumococcal 23-Valent Vaccine IM ONE (19:58)
[2018-02-28] MEDS: Sodium Chloride 0.9% 1,000 ML IV SCH (22:09)
--- NOTE | 2018-03-01 05:53 | CARD ---
APPROVED REPORT Date of service: 02/28/2018 EKG Measurement Heart [id number] <Conclusion> Sinus rhythm with 1st degree AV block Right bundle branch block Possible Inferior infarct, age undetermined Abnormal ECG
[2018-03-01] MEDS: Pantoprazole 20 mg EC Tab PO SCH ×2 (06:59→18:00)
[2018-03-01 07:00] LABS: BASO # 0.02 K/mm3 (0.0-2.0); BASO % 0.2 % (0.0-3.0); EOS # 0.3 (0.0-0.7); GRAN # 6.9 (1.4-6.5); GRAN % 71.3 % (50.0-68.0); HEMOGLOBIN 10.7 g/dL (14.0-18.0); LYMPH # 1.5 (1.2-3.4); LYMPH % 15.4 % (22.0-35.0); MEAN CELL VOLUME 82.5 fl (80.0-105.0); MEAN CORPUSCULAR HEMOGLOBIN 26.4 pg (25.0-35.0); MEAN PLATELET VOLUME 8.7 fl (7.0-11.0); MONO % 10.1 % (1.0-6.0); RBC 4.05 10^6/uL (3.5-6.1); RED CELL DISTRIBUTION WIDTH 13.4 % (11.5-14.5); WHITE BLOOD COUNT 9.7 10^3/uL (4.5-11.0)
[2018-03-01 07:29] LABS: ALBUMIN 3.2 g/dL (3.0-4.8); ALT/SGPT 24 U/L (7-56); AST/SGOT 30 U/L (17-59); BLOOD UREA NITROGEN 28 mg/dL (7-21); CALCIUM 8.5 mg/dL (8.4-10.5); GFR NON-AFRICAN AMERICAN 53
[2018-03-01] MEDS ORDERED: Piperacillin/Tazobact 3.375 gm 100 ML IVPB SCH (08:15)
[2018-03-01] MEDS: Vancomycin 1gm in NS 250ml 1 GM/250 ML BAG IVPB SCH ×2 (09:16→11:18)
--- NOTE | 2018-03-01 11:07 | CP.CCUPN ---
CCU Objective - Vital Signs / Intake & Output Vital Signs (Last 4 hours): Vital Signs Pulse BP 03/01/18 09:16 67 143/79 03/01/18 09:15 67 143/79 Intake and Output (Last 8hrs): Intake & Output 02/28/18 03/01/18 03/01/18 22:59 06:59 14:59 Intake Total 540 180 Output Total 200 100 Balance 340 80 Weight 100.698 kg Intake: Oral 540 180 Output: Urine 200 100 Urine, Voided 200 100 Other: Voiding Method Diaper # Bowel Movements 0 - Physical Exam Head: Positive for: Atraumatic, Normocephalic Pupils: Positive for: PERRL Extroacular Muscles: Positive for: EOMI Conjunctiva: Positive for: Normal Mouth: Positive for: Moist Mucous Membranes Pharnyx: Positive for: Normal Neck: Positive for: Normal Range of Motion Respiratory/Chest: Positive for: Clear to Auscultation, Good Air Exchange. Negative for: Respiratory Distress, Accessory Muscle Use Cardiovascular: Positive for: Regular Rate and Rhythm, Normal S1, S2. Negative for: Murmurs Abdomen: Negative for: Tenderness, Distention, Peritoneal Signs Back: Positive for: Normal Inspection Upper Extremity: Positive for: Normal Inspection, Normal ROM, NORMAL PULSES, Neurovascularly Intact, Capillary Refill < 2s. Negative for: Cyanosis, Edema, Tenderness, Swelling, Erythema Lower Extremity: Positive for: Normal Inspection, Normal ROM, Swelling (left foot), Erythema (left lower anterior leg and foot), Temperature Abnormalties (left lower leg and foot warm to touch), Neurovascularly Intact, Capillary Refill < 2 s, Other (1cm x 1cm wound on dorsal 2nd digit, left foot over PIP joint. Wound is open, bleeding, small amount of yellow drainage. Digit is black and blue, discolored to the base; left heel chronic wound, no signs of infection ). Negative for: Edema, CALF TENDERNESS, Tenderness, Deformity Neurological: Positive for: GCS=15, CN II-XII Intact, Speech Normal, Motor Func Grossly Intact, Normal Sensory Function, Gait Normal, Memory Normal Skin: Positive for: Warm, Dry, Normal Color, Hot (left lower leg). Negative for: Rashes Lymphatic: Negative for: Cervical Adenopathy Psychiatric: Positive for: Alert, Oriented x 3, Normal Insight, Normal Concentration, Normal Affect, Normal Mood - Medications Active Medications: Active Medications Generic Name Dose Route Start Last Admin Trade Name Deshawnq PRN Reason Stop Dose Admin Amlodipine Besylate 5 mg 02/28/18 20:15 03/01/18 09:16 Norvasc PO 5 mg BID SARAH Administration Aspirin 81 mg 03/01/18 10:00 03/01/18 09:15 Ecotrin PO 81 mg DAILY SARAH Administration Heparin Sodium (Porcine) 5,000 units 02/28/18 22:00 03/01/18 09:15 Heparin SC 5,000 units Q12 SARAH Administration Protocol Sodium Chloride 1,000 mls @ 60 mls/hr 02/28/18 19:45 02/28/18 22:09 Sodium Chloride 0.9% IV 60 mls/hr .[id number] SARAH Administration Ceftaroline Fosamil 600 mg/ 100 mls @ 100 mls/hr 03/01/18 10:30 Sodium Chloride IVPB 03/10/18 10:31 Q12 SARAH Protocol Losartan Potassium 25 mg 03/01/18 10:00 03/01/18 09:15 Cozaar PO 25 mg DAILY SARAH Administration Pantoprazole Sodium 20 mg 03/01/18 06:00 03/01/18 06:59 Protonix Ec Tab PO 20 mg 0600,1600 SARAH Administration - Patient Studies Lab Studies: Microbiology Studies 02/28/18 15:41 Gram Stain - Final Toe Wound Culture - Preliminary Gram Positive Cocci Lab Studies 03/01/18 03/01/18 02/28/18 Range/Units 05:30 05:30 15:41 WBC 9.7 (4.5-11.0) 10^3/uL RBC 4.05 (3.5-6.1) 10^6/uL Hgb 10.7 L (14.0-18.0) g/dL Hct 33.4 L (42.0-52.0) % MCV 82.5 (80.0-105.0) fl MCH 26.4 (25.0-35.0) pg MCHC 32.0 (31.0-37.0) g/dl RDW 13.4 (11.5-14.5) % Plt Count 189 (120.0-450.0) 10^3/uL MPV 8.7 (7.0-11.0) fl Gran % 71.3 H (50.0-68.0) % Lymph % (Auto) 15.4 L (22.0-35.0) % [place] % (Auto) 10.1 H (1.0-6.0) % Eos % (Auto) 3.0 (1.5-5.0) % Baso % (Auto) 0.2 (0.0-3.0) % Gran # 6.90 H (1.4-6.5) Lymph # (Auto) 1.5 (1.2-3.4) [place] # (Auto) 1.0 H (0.1-0.6) Eos # (Auto) 0.3 (0.0-0.7) Baso # (Auto) 0.02 (0.0-2.0) K/mm3 ESR 76 H (0.00-15.0) mm/hr PT (9.4-12.5) SECONDS INR APTT (25.1-36.5) Seconds Sodium 138 (132-148) mmol/L Potassium 4.4 (3.6-5.0) mmol/L Chloride 106 (98-107) mmol/L Carbon Dioxide 27 (21-33) mmol/L Anion Gap 9 L (10-20) BUN 28 H (7-21) mg/dL Creatinine 1.3 (0.8-1.5) mg/dl Est GFR ( Amer) > 60 Est GFR (Non-Af Amer) 53 Random Glucose 108 (70-110) mg/dL Calcium 8.5 (8.4-10.5) mg/dL Phosphorus 3.7 (2.5-4.5) mg/dL Magnesium 2.1 (1.7-2.2) mg/dL Total Bilirubin 0.5 (0.2-1.3) mg/dL AST 30 (17-59) U/L ALT 24 (7-56) U/L Alkaline Phosphatase 89 (38-126) U/L Total Protein 6.3 (5.8-8.3) g/dL Albumin 3.2 (3.0-4.8) g/dL Globulin 3.2 gm/dL Albumin/Globulin Ratio 1.0 L (1.1-1.8) 02/28/18 02/28/18 02/28/18 Range/Units 15:41 15:41 15:41 WBC 11.7 H (4.5-11.0) 10^3/uL RBC 4.43 (3.5-6.1) 10^6/uL Hgb 12.0 L (14.0-18.0) g/dL Hct 36.8 L (42.0-52.0) % MCV 83.1 (80.0-105.0) fl MCH 27.1 (25.0-35.0) pg MCHC 32.6 (31.0-37.0) g/dl RDW 13.3 (11.5-14.5) % Plt Count 197 (120.0-450.0) 10^3/uL MPV 8.4 (7.0-11.0) fl Gran % 76.1 H (50.0-68.0) % Lymph % (Auto) 11.7 L (22.0-35.0) % [place] % (Auto) 10.4 H (1.0-6.0) % Eos % (Auto) 1.7 (1.5-5.0) % Baso % (Auto) 0.1 (0.0-3.0) % Gran # 8.90 H (1.4-6.5) Lymph # (Auto) 1.4 (1.2-3.4) [place] # (Auto) 1.2 H (0.1-0.6) Eos # (Auto) 0.2 (0.0-0.7) Baso # (Auto) 0.01 (0.0-2.0) K/mm3 ESR (0.00-15.0) mm/hr PT 14.8 H (9.4-12.5) SECONDS INR 1.29 APTT 34.7 (25.1-36.5) Seconds Sodium 139 (132-148) mmol/L Potassium 5.1 H (3.6-5.0) mmol/L Chloride 104 (98-107) mmol/L Carbon Dioxide 29 (21-33) mmol/L Anion Gap 12 (10-20) BUN 36 H (7-21) mg/dL Creatinine 1.5 (0.8-1.5) mg/dl Est GFR ( Amer) 54 Est GFR (Non-Af Amer) 45 Random Glucose 116 H (70-110) mg/dL Calcium 9.0 (8.4-10.5) mg/dL Phosphorus (2.5-4.5) mg/dL Magnesium (1.7-2.2) mg/dL Total Bilirubin 0.5 (0.2-1.3) mg/dL AST 26 (17-59) U/L ALT 23 (7-56) U/L Alkaline Phosphatase 101 (38-126) U/L Total Protein 7.0 (5.8-8.3) g/dL Albumin 3.7 (3.0-4.8) g/dL Globulin 3.3 gm/dL Albumin/Globulin Ratio 1.1 (1.1-1.8) Laboratory Results - last 24 hr 02/28/18 02/28/18 02/28/18 15:41 15:41 15:41 WBC 11.7 H RBC 4.43 Hgb 12.0 L Hct 36.8 L MCV 83.1 MCH 27.1 MCHC 32.6 RDW 13.3 Plt Count 197 MPV 8.4 Gran % 76.1 H Lymph % (Auto) 11.7 L [place] % (Auto) 10.4 H Eos % (Auto) 1.7 Baso % (Auto) 0.1 Gran # 8.90 H Lymph # (Auto) 1.4 [place] # (Auto) 1.2 H Eos # (Auto) 0.2 Baso # (Auto) 0.01 ESR PT 14.8 H INR 1.29 APTT 34.7 Sodium 139 Potassium 5.1 H Chloride 104 Carbon Dioxide 29 Anion Gap 12 BUN 36 H Creatinine 1.5 Est GFR ( Amer) 54 Est GFR (Non-Af Amer) 45 Random Glucose 116 H Calcium 9.0 Phosphorus Magnesium Total Bilirubin 0.5 AST 26 ALT 23 Alkaline Phosphatase 101 Total Protein 7.0 Albumin 3.7 Globulin 3.3 Albumin/Globulin Ratio 1.1 02/28/18 03/01/18 03/01/18 15:41 05:30 05:30 WBC 9.7 RBC 4.05 Hgb 10.7 L Hct 33.4 L MCV 82.5 MCH 26.4 MCHC 32.0 RDW 13.4 Plt Count 189 MPV 8.7 Gran % 71.3 H Lymph % (Auto) 15.4 L [place] % (Auto) 10.1 H Eos % (Auto) 3.0 Baso % (Auto) 0.2 Gran # 6.90 H Lymph # (Auto) 1.5 [place] # (Auto) 1.0 H Eos # (Auto) 0.3 Baso # (Auto) 0.02 ESR 76 H PT INR APTT Sodium 138 Potassium 4.4 Chloride 106 Carbon Dioxide 27 Anion Gap 9 L BUN 28 H Creatinine 1.3 Est GFR ( Amer) > 60 Est GFR (Non-Af Amer) 53 Random Glucose 108 Calcium 8.5 Phosphorus 3.7 Magnesium 2.1 Total Bilirubin 0.5 AST 30 ALT 24 Alkaline Phosphatase 89 Total Protein 6.3 Albumin 3.2 Globulin 3.2 Albumin/Globulin Ratio 1.0 L EKG/Cardiology Studies: Cardiology / EKG Studies 02/28/18 16:09 EKG [ELECTROCARDIOGRAM] Stat Comment: Reason For Exam: admission Critical Care Progress Note - Nutrition Nutrition: Nutrition Category Date Time Status Heart Healthy Diet [DIET] Diets 02/28/18 Dinner Active
--- NOTE | 2018-03-01 11:17 | CP.PCM.CON ---
<Sanju Ruelas - Last Filed: 03/01/18 11:14> History of Present Illness - History of Present Illness History of Present Illness: Podiatry consult note for Dr. Almendarez 82 y/o M patient with PMH of peripheral artery disease, chronic LLE celluiltis, COPD, HTN, dementia, obesity seen and evaluated in the bedside for infected left 2nd toe ulcer with left foot cellulitis. Patient states that last he scrabbed his left 2nd toe against the floor. He states that his toe color changed to blue and stayed the same in the next few days. patient states that he didn't feel any pain. Dr. Almendarez (topographic computator) at home every 2-3 weeks for L heel ulcers for the past 1.5 years with silvadene and xeroform treatments. Dr Almendarez had visited him yesterday and instructed him to go to ER for further treatment. He states that his left foot started to get red and swollen. Patient denies any other pedal complaint at this time. He denies any F/N/V/C or SOB. PMH: peripheral artery disease, chronic LLE celluiltis, COPD, HTN, dementia, obesity PSH: None Allergies: Alprazolam, Ativan, Morphine sulphate Social Hx: denies Smoking, EtOH use or illicite drug use Review of Systems - Review of Systems Review of Systems: As Per HPI - Constitutional Constitutional: As Per HPI Past Patient History - Past Medical History & Family History Past Medical History?: Yes - Past Social History Smoking Status: Former Smoker - CARDIAC Hx Hypertension: Yes - PULMONARY Hx Respiratory Disorders: No - NEUROLOGICAL Hx Neurological Disorder: No - HEENT Hx Cataracts: Yes (bilateral surgery) Hx Deafness: Yes (bilateral hearing aids) Other/Comment: eye glasses for driving and reading - RENAL Hx Kidney Stones: Yes (many years ago) - ENDOCRINE/METABOLIC Hx Endocrine Disorders: No - HEMATOLOGICAL/ONCOLOGICAL Hx Blood Disorders: No - INTEGUMENTARY Hx Dermatological Problems: Yes Other/Comment: right 3rd finger skin around fingernail dry red swollen pt denies pain, left foot 2nd toe red swollen bloody and yellow drainage, left foot red and lle red skin and discolored, rle discolored skin, small dark red scab 0.2cm top of right foot, small 0.2cm deep red scab left knee surrounded by dry red skin - MUSCULOSKELETAL/RHEUMATOLOGICAL Hx Falls: Yes - GASTROINTESTINAL Hx Gastrointestinal Disorders: Yes (obese) - GENITOURINARY/GYNECOLOGICAL Hx Genitourinary Disorders: Yes Hx Incontinence: Yes - PSYCHIATRIC Hx Substance Use: No - SURGICAL HISTORY Other/Comment: pilonidal cyst Meds Allergies/Adverse Reactions: Allergies Allergy/AdvReac Type Severity Reaction Status Date / Time alprazolam [From Xanax] AdvReac Severe SHORTNESS Verified 02/28/18 15:04 OF BREATH ativan AdvReac Severe SHORTNESS Uncoded 02/28/18 15:04 OF BREATH Morphine Sulfate AdvReac Severe SHORTNESS Uncoded 02/28/18 15:04 OF BREATH - Medications Medications: Current Medications Amlodipine Besylate (Norvasc) 5 mg PO BID [facility] Last Admin: 03/01/18 09:16 Dose: 5 mg Aspirin (Ecotrin) 81 mg PO DAILY [facility] Last Admin: 03/01/18 09:15 Dose: 81 mg Heparin Sodium (Porcine) (Heparin) 5,000 units SC Q12 [facility]; Protocol Last Admin: 03/01/18 09:15 Dose: 5,000 units Sodium Chloride (Sodium Chloride 0.9%) 1,000 mls @ 60 mls/hr IV .[id number] [facility] Last Admin: 02/28/18 22:09 Dose: 60 mls/hr Ceftaroline Fosamil 600 mg/ (Sodium Chloride) 100 mls @ 100 mls/hr IVPB Q12 [facility]; Protocol Stop: 03/10/18 10:31 Losartan Potassium (Cozaar) 25 mg PO DAILY [facility] Last Admin: 03/01/18 09:15 Dose: 25 mg Pantoprazole Sodium (Protonix Ec Tab) 20 mg PO 0600,1600 [facility] Last Admin: 03/01/18 06:59 Dose: 20 mg Physical Exam - Constitutional Appears: Well, Non-toxic, No Acute Distress - Head Exam Head Exam: ATRAUMATIC, NORMOCEPHALIC - Extremities Exam Additional comments: Bilateral lower extremities exam VASC: faintly palpable pedal pulses bilaterally, Temp gradient warm to cool in the right side and warm to fourdrinier machine tender the left side. Cap refill < 3 sec to all digits. Erythema noted to the left midfoot. Left 2nd toe is dark blue in color. Moderate non pitting edema noted to the left foot. B/L Chronic leg edema. left leg noted to be erythematous up to the level of the midcalf. NEURO: Gross andf protective sensations are grossly diminished DERM: B/L Chronic leg edema. Left 2nd toe dorsal ulcer at the level of the PIPJ. 0.7X0.5X0.1cm. Mild seous drainage. No malodor. No tracking, undermining or probing to bone. Erythema noted to the left midfoot. Left 2nd toe is dark blue in color. left leg noted to be erythematous up to the level of the midcalf with multiple scab covered superficial wounds. Diffuse dryness to the lower 1/3 of the left leg and also to the plantar aspect of both feet. MSK: no pain on palpation of foot or legs bilaterally. Muscle power intact 5/5 to all groups b/l. - Neurological Exam Neurological exam: Alert, Oriented x3 - Psychiatric Exam Psychiatric exam: Normal Affect, Normal Mood Results - Vital Signs Recent Vital Signs: Last Vital Signs Temp 97.9 F 03/01/18 06:00 Pulse 67 03/01/18 09:16 Resp 18 03/01/18 06:00 BP 143/79 03/01/18 09:16 Pulse Ox 94 L 03/01/18 06:00 - Labs Result Diagrams: 03/01/18 05:30 03/01/18 05:30 Labs: Laboratory Results - last 24 hr 02/28/18 02/28/18 02/28/18 15:41 15:41 15:41 WBC 11.7 H RBC 4.43 Hgb 12.0 L Hct 36.8 L MCV 83.1 MCH 27.1 MCHC 32.6 RDW 13.3 Plt Count 197 MPV 8.4 Gran % 76.1 H Lymph % (Auto) 11.7 L [place] % (Auto) 10.4 H Eos % (Auto) 1.7 Baso % (Auto) 0.1 Gran # 8.90 H Lymph # (Auto) 1.4 [place] # (Auto) 1.2 H Eos # (Auto) 0.2 Baso # (Auto) 0.01 ESR PT 14.8 H INR 1.29 APTT 34.7 Sodium 139 Potassium 5.1 H Chloride 104 Carbon Dioxide 29 Anion Gap 12 BUN 36 H Creatinine 1.5 Est GFR ( Amer) 54 Est GFR (Non-Af Amer) 45 Random Glucose 116 H Calcium 9.0 Phosphorus Magnesium Total Bilirubin 0.5 AST 26 ALT 23 Alkaline Phosphatase 101 Total Protein 7.0 Albumin 3.7 Globulin 3.3 Albumin/Globulin Ratio 1.1 02/28/18 03/01/18 03/01/18 15:41 05:30 05:30 WBC 9.7 RBC 4.05 Hgb 10.7 L Hct 33.4 L MCV 82.5 MCH 26.4 MCHC 32.0 RDW 13.4 Plt Count 189 MPV 8.7 Gran % 71.3 H Lymph % (Auto) 15.4 L [place] % (Auto) 10.1 H Eos % (Auto) 3.0 Baso % (Auto) 0.2 Gran # 6.90 H Lymph # (Auto) 1.5 [place] # (Auto) 1.0 H Eos # (Auto) 0.3 Baso # (Auto) 0.02 ESR 76 H PT INR APTT Sodium 138 Potassium 4.4 Chloride 106 Carbon Dioxide 27 Anion Gap 9 L BUN 28 H Creatinine 1.3 Est GFR ( Amer) > 60 Est GFR (Non-Af Amer) 53 Random Glucose 108 Calcium 8.5 Phosphorus 3.7 Magnesium 2.1 Total Bilirubin 0.5 AST 30 ALT 24 Alkaline Phosphatase 89 Total Protein 6.3 Albumin 3.2 Globulin 3.2 Albumin/Globulin Ratio 1.0 L Assessment & Plan - Assessment and Plan (Free Text) Assessment: 82 y/o M patient seen and evaluated in the bedside for infected left 2nd toe ulcer with left foot cellulitis. Plan: Patient seen and evaluated in the bedside Plan discussed with Dr. Almendarez Wound Culture; Gram positive cocci Left 2nd toe Wound dressed with xeroform, gauze and kerlix X-rays left foot; No osteomyelitis, soft tissue swelling Ordered WALKER/PVR Ordered LLE venous duplex. Ordered MRI L foot Podiatry will continue to follow up the patient while in house - Date & Time Date: 03/01/18 Time: 11:15 <Luis Carlos Almendarez - Last Filed: 03/03/18 08:40> Meds - Medications Medications: Current Medications Amlodipine Besylate (Norvasc) 5 mg PO BID [facility] Last Admin: 03/02/18 17:57 Dose: 5 mg Aspirin (Ecotrin) 81 mg PO DAILY [facility] Last Admin: 03/02/18 10:53 Dose: 81 mg Heparin Sodium (Porcine) (Heparin) 5,000 units SC Q12 [facility]; Protocol Last Admin: 03/02/18 22:19 Dose: 5,000 units Sodium Chloride (Sodium Chloride 0.9%) 1,000 mls @ 60 mls/hr IV .[id number] [facility] Last Admin: 03/02/18 20:51 Dose: 60 mls/hr Ceftaroline Fosamil 600 mg/ (Sodium Chloride) 100 mls @ 100 mls/hr IVPB Q12 [facility]; Protocol Stop: 03/10/18 10:31 Last Admin: 03/02/18 22:12 Dose: 100 mls/hr Insulin Human Lispro (Humalog Low) 0 units SC ACHS [facility]; Protocol Last Admin: 03/03/18 08:23 Dose: Not Given Losartan Potassium (Cozaar) 25 mg PO DAILY [facility] Last Admin: 03/02/18 10:53 Dose: 25 mg Mupirocin (Bactroban Ointment) 0 gm TOP DAILY [facility] Pantoprazole Sodium (Protonix Ec Tab) 20 mg PO 0600,1600 [facility] Last Admin: 03/02/18 17:57 Dose: 20 mg Results - Vital Signs Recent Vital Signs: Last Vital Signs Temp 98.2 F 03/02/18 22:00 Pulse 58 L 03/02/18 22:00 Resp 18 03/02/18 22:00 BP 164/52 H 03/02/18 22:00 Pulse Ox 96 03/02/18 22:00 - Labs Result Diagrams: 03/02/18 07:20 03/02/18 07:20 Labs: Laboratory Results - last 24 hr 03/02/18 03/02/18 03/02/18 11:31 15:54 21:28 POC Glucose (mg/dL) 80 130 H 117 H 03/03/18 07:05 POC Glucose (mg/dL) 94 Attending/Attestation - Attestation I have personally seen and examined this patient.: Yes I have fully participated in the care of the patient.: Yes I have reviewed all pertinent clinical information: Yes
--- NOTE | 2018-03-01 11:24 | CP.PCM.PN ---
<Michael Mayorga - Last Filed: 03/01/18 11:38> Subjective - Date & Time of Evaluation Date of Evaluation: 03/01/18 Time of Evaluation: 07:00 - Subjective Subjective: Patient seen and examined at bedside in no acute distress. Patient states he no issues overnight. Currently states he is in no pain. Admits to numbness and tingling in his left lower extremity. Denies fevers, chills, fever, cough, abdominal pain, nausea, vomiting, diarrhea, dysuria. Objective - Vital Signs/Intake and Output Vital Signs (last 24 hours): Temp Pulse Resp BP Pulse Ox 97.9 F 67 18 143/79 94 L 03/01/18 06:00 03/01/18 09:16 03/01/18 06:00 03/01/18 09:16 03/01/18 06:00 Intake and Output: 03/01/18 03/01/18 06:59 18:59 Intake Total 720 Output Total 300 Balance 420 - Medications Medications: Current Medications Amlodipine Besylate (Norvasc) 5 mg PO BID [facility] Last Admin: 03/01/18 09:16 Dose: 5 mg Aspirin (Ecotrin) 81 mg PO DAILY [facility] Last Admin: 03/01/18 09:15 Dose: 81 mg Heparin Sodium (Porcine) (Heparin) 5,000 units SC Q12 [facility]; Protocol Last Admin: 03/01/18 09:15 Dose: 5,000 units Sodium Chloride (Sodium Chloride 0.9%) 1,000 mls @ 60 mls/hr IV .[id number] [facility] Last Admin: 02/28/18 22:09 Dose: 60 mls/hr Ceftaroline Fosamil 600 mg/ (Sodium Chloride) 100 mls @ 100 mls/hr IVPB Q12 [facility]; Protocol Stop: 03/10/18 10:31 Losartan Potassium (Cozaar) 25 mg PO DAILY [facility] Last Admin: 03/01/18 09:15 Dose: 25 mg Pantoprazole Sodium (Protonix Ec Tab) 20 mg PO 0600,1600 [facility] Last Admin: 03/01/18 06:59 Dose: 20 mg - Labs Labs: 03/01/18 05:30 03/01/18 05:30 PT 14.8 SECONDS (9.4-12.5) H 02/28/18 15:41 INR 1.29 02/28/18 15:41 APTT 34.7 Seconds (25.1-36.5) 02/28/18 15:41 - Constitutional Appears: Well, Non-toxic - Head Exam Head Exam: ATRAUMATIC, NORMAL INSPECTION, NORMOCEPHALIC - Eye Exam Eye Exam: EOMI, Normal appearance - ENT Exam ENT Exam: Mucous Membranes Moist - Respiratory Exam Respiratory Exam: Clear to Ausculation Bilateral, NORMAL BREATHING PATTERN - Cardiovascular Exam Cardiovascular Exam: REGULAR RHYTHM, +S1, +S2 - GI/Abdominal Exam GI & Abdominal Exam: Soft, Normal Bowel Sounds. absent: Tenderness - Extremities Exam Extremities Exam: Pedal Edema (left lower extremity). absent: Calf Tenderness, Normal Inspection (left lower leg ), Tenderness - Back Exam Back Exam: NORMAL INSPECTION - Neurological Exam Neurological Exam: Alert, Awake, Oriented x3 - Psychiatric Exam Psychiatric exam: Normal Affect, Normal Mood - Skin Skin Exam: absent: Normal Color Additional comments: blood pooling within the second phalanx of left foot. Erythema and swelling of lower left leg. Assessment and Plan - Assessment and Plan (Free Text) Assessment: Progress note for Dr. Gibbs Hospitalist Service Michael Mayorga PGY2 82 y/o M with PMHx of peripheral artery disease, chronic LLE celluiltis, COPD, HTN, dementia, obesity [place] [facility] [place] with complaints of LLE anterior tibial region cellulitis and black L foot 2nd distal phalanx. Plan: 2 y/o M with PMHx of peripheral artery disease, chronic LLE celluiltis (previous group G strep and MSSA+), COPD, HTN, dementia, obesity admitted L foot 2nd distal phalanx questionable gangrene and LLE cellulitis Plan: L foot 2nd distal phalanx osteomyelitis/LLE cellulitis Continue with Ceftaroline as per ID Continue aspirin LE arterial doppler and WALKER studies ordered Podiatry on consult ID on consult Vascular surgery on consult L foot xray: no signs of osteomyelitis, cellulitis present Foot MRI ordered Wound culture; gram positive cocci present Blood culture pending Procalcitonin pending Hx of Hypertension Continue home amlodipine and losartan Hx of Pre-diabetes Previous HgA1C 6.6 a year ago, will repeat DVT/GI PPx: Hep/protonix Case seen and discussed with attending Dr. Gibbs <Av Gibbs - Last Filed: 03/01/18 13:29> Objective - Vital Signs/Intake and Output Vital Signs (last 24 hours): Temp Pulse Resp BP Pulse Ox 97.9 F 67 18 143/79 94 L 03/01/18 06:00 03/01/18 09:16 03/01/18 06:00 03/01/18 09:16 03/01/18 06:00 Intake and Output: 03/01/18 03/01/18 06:59 18:59 Intake Total 720 Output Total 300 Balance 420 - Medications Medications: Current Medications Amlodipine Besylate (Norvasc) 5 mg PO BID [facility] Last Admin: 03/01/18 09:16 Dose: 5 mg Aspirin (Ecotrin) 81 mg PO DAILY [facility] Last Admin: 03/01/18 09:15 Dose: 81 mg Heparin Sodium (Porcine) (Heparin) 5,000 units SC Q12 [facility]; Protocol Last Admin: 03/01/18 09:15 Dose: 5,000 units Sodium Chloride (Sodium Chloride 0.9%) 1,000 mls @ 60 mls/hr IV .[id number] [facility] Last Admin: 02/28/18 22:09 Dose: 60 mls/hr Ceftaroline Fosamil 600 mg/ (Sodium Chloride) 100 mls @ 100 mls/hr IVPB Q12 [facility]; Protocol Stop: 03/10/18 10:31 Last Admin: 03/01/18 11:47 Dose: 100 mls/hr Losartan Potassium (Cozaar) 25 mg PO DAILY [facility] Last Admin: 03/01/18 09:15 Dose: 25 mg Pantoprazole Sodium (Protonix Ec Tab) 20 mg PO 0600,1600 [facility] Last Admin: 03/01/18 06:59 Dose: 20 mg - Labs Labs: 03/01/18 05:30 03/01/18 05:30 PT 14.8 SECONDS (9.4-12.5) H 02/28/18 15:41 INR 1.29 02/28/18 15:41 APTT 34.7 Seconds (25.1-36.5) 02/28/18 15:41 Attending/Attestation - Attestation I have personally seen and examined this patient.: Yes I have fully participated in the care of the patient.: Yes I have reviewed all pertinent clinical information, including history, physical exam and plan: Yes Notes (Text): 03/01/18 13:25 82 year old male with past medical history of PAD, COPD, borderline diabetes and hypertension who presented with left foot/leg cellulitis and and left 2nd digit ulceration. Conitnue with iv antibiotics as per ID and wound care as per podiatry. Will follow up on cultures. LE dopplers and WALKER is ordered. MRI ordered to rule out osteomyelitis. Continue with home medications for hypertension. Continue with insulin ss while awaiting hemoglobin A1c. Av Gibbs MD Hospitalist.
[2018-03-01] MEDS: Ceftaroline 600 MG in Sodium Chloride 0.9% 100 ML IVPB SCH (11:47)
--- NOTE | 2018-03-01 17:54 | CON ---
DATE: 03/01/2018 CHIEF COMPLAINT: Left foot infection times several days. HISTORY OF PRESENT ILLNESS: This is an 82-year-old male with a past medical history of obesity with a BMI of 38, hypertension, dementia, who denies any fevers and denies any diabetes, who states that he had a minor trauma to his foot, which became progressively worse. The patient does have renal disease, but he states he has no medical problems. He takes no medications. The patient did have a history of group G Strep bacteremia and Staph aureus cellulitis of the lower extremity in the past and was seen in the hospital in 2017. He had rhabdomyolysis. He also had [id number] myocardial infarction and hypertension. He had a surgery in the past, but does not remember what type of surgery. The patient was seen in the emergency room with . In the emergency room, the patient was admitted with a left foot infection. REVIEW OF SYSTEMS: Reveals a 14-point review of systems is performed. No fevers and no chills. No nausea and no vomiting. No chest pain. No abdominal pain, diarrhea or constipation. No bright red blood per rectum. No melena. The patient's current chief complaint is left foot infection. PAST MEDICAL HISTORY: Significant for coronary artery disease, myocardial infarction, hypertension, dementia, renal disease, renal stones, history of group G strep bacteremia, and history of Staph aureus leg cellulitis. The patient also is hard of hearing. PAST SURGICAL HISTORY: Significant for bilateral cataract surgery. ALLERGIES: THE PATIENT STATES HE HAS NO KNOWN ALLERGIES; HOWEVER, IN HIS CHART, IT IS WRITTEN THAT THE PATIENT IS ALLERGIC TO ATIVAN, MORPHINE, BUT NO ALLERGIES TO ANY ANTIBIOTICS. MEDICATIONS AT HOME: Include the patient to be on amlodipine, Cozaar and aspirin. PHYSICAL EXAMINATION: VITAL SIGNS: On exam, the patient is in bed with a temperature of 98, respiratory rate of 18, blood pressure is 176/50, and heart rate of 67. HEENT: Unremarkable. NECK: Supple. LUNGS: Have decreased breath sounds. HEART: Normal S1 and S2. ABDOMEN: Soft and nontender. No organomegaly. No rebound. No guarding. No masses. EXTREMITIES: Examination of left leg with significant erythema of the lower extremity and the low foot. A second toe ulcer and also a second toe gangrene. Pulses are weak. LABORATORY DATA: Reveals a white count of 11,700 and hemoglobin of 12. Sed rate of 76. Chemistries reveal the creatinine is 1.5 and he has had renal insufficiency in the past and his creatinine had been up to 3.4 in 2017 and it was 1.9 upon discharge on last admission. The patient had an x-ray of the foot, which reveals no evidence of bony erosion or destruction to suggest osteomyelitis. History and physical examination is reviewed. ASSESSMENT AND PLAN: This is an 82-year-old male with obesity, hypertension, dementia, coronary artery disease, kidney stones, myocardial infarction, cataracts, hard of hearing, history of group G strep bacteremia with cellulitis, history of Staph aureus foot infection, now presenting with a left leg and left foot cellulitis with a second toe gangrene with renal insufficiency. We will treat with Teflaro. Pending panculture. Must rule out underlying osteomyelitis and should have imaging to rule out osteomyelitis. Should have ankle brachial index to rule out underlying peripheral arterial disease. Podiatric consultation and Vascular consultation. Because of the patient's renal insufficiency, we will discontinue the vancomycin and use Teflaro. We will follow closely with you. Wally Wylie MD
[2018-03-01] MEDS: Insulin Lispro (humaLOG) LOW Coverage SC SCH ×2 (20:01→22:28)
[2018-03-02] MEDS: Pantoprazole 20 mg EC Tab PO SCH ×2 (06:03→17:57)
[2018-03-02 07:52] LABS: BASO # 0.02 K/mm3 (0.0-2.0); BASO % 0.2 % (0.0-3.0); EOS # 0.3 (0.0-0.7); EOS % 3.2 % (1.5-5.0); GRAN # 6.01 (1.4-6.5); GRAN % 69.2 % (50.0-68.0); HEMOGLOBIN 11.2 g/dL (14.0-18.0); LYMPH # 1.6 (1.2-3.4); LYMPH % 18.2 % (22.0-35.0); MEAN CELL VOLUME 82.9 fl (80.0-105.0); MEAN CORPUSCULAR HGB CONC 32.6 g/dl (31.0-37.0); MEAN PLATELET VOLUME 8.5 fl (7.0-11.0); MONO # 0.8 (0.1-0.6); MONO % 9.2 % (1.0-6.0); RBC 4.15 10^6/uL (3.5-6.1); RED CELL DISTRIBUTION WIDTH 13.3 % (11.5-14.5); WHITE BLOOD COUNT 8.7 10^3/uL (4.5-11.0)
[2018-03-02 07:58] LABS: ALBUMIN 3.3 g/dL (3.0-4.8); CALCIUM 8.6 mg/dL (8.4-10.5)
--- NOTE | 2018-03-02 09:57 | PN ---
DATE: 03/02/2018 SUBJECTIVE: The patient is in bed, no acute distress, nontoxic. PHYSICAL EXAMINATION: VITAL SIGNS: On exam, temperature is 98, blood pressure is 150/60, respiratory rate of 20. HEENT: Examination of HEENT is unremarkable. NECK: Supple. LUNGS: Have decreased breath sounds. HEART: Normal S1, S2. ABDOMEN: Soft. EXTREMITIES: Examination of leg is slightly less erythematous and the second toe is not changed. LABORATORY DATA: Chemistries are noted. Laboratory reveals the white count is improved down to 8.7. The sed rate is 76. C-reactive protein is 69. Microbiology reveals the gram-positive cocci from the toe culture. The blood cultures are no growth at 24 hours. ASSESSMENT AND PLAN: An 82-year-old male with obesity, hypertension, dementia, coronary artery disease, kidney stone, myocardial infarction, cataracts, hard of hearing, history of group G Streptococcus bacteremia cellulitis, history of Staphylococcus aureus infection, presenting with a left leg and left foot cellulitis, second toe gangrene with renal insufficiency. Currently on Teflaro. Waiting for further culture results and workup results. Renal consultation is reviewed. Podiatry and Vascular consultation is needed. Wally Wylie MD
[2018-03-02] MEDS: Ceftaroline 600 MG in Sodium Chloride 0.9% 100 ML IVPB SCH ×2 (10:52→22:12)
[2018-03-02] MEDS: Insulin Lispro (humaLOG) LOW Coverage SC SCH ×4 (10:55→22:11)
--- NOTE | 2018-03-02 11:31 | US ---
PROCEDURE: Lower extremity WALKER exam HISTORY: Peripheral vascular disease with pain and ulceration. Previous smoker. PHYSICIAN(S): Terrence Bedolla MD. FINDINGS: The right resting WALKER is normal, 1.18. The left resting WALKER is mildly abnormal, 0.77 The brachial systolic pressures are symmetric. The low thigh pressures and waveforms are relatively normal. The calf PVR waveforms augment normally. No significant gradients are noted across the thighs. There is a mild gradient across the left tibial vessels. However, the PVR waveforms are normal and symmetric. This is of uncertain clinical significance IMPRESSION: 1. Relatively normal WALKER and PVR exam at rest. 2. 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
--- NOTE | 2018-03-02 13:54 | PN ---
DATE: 03/02/2018 SUBJECTIVE: An 82-year-old patient seen at bedside with his and daughter present for continued evaluation and management of an infected left second toe ulceration with accompanying cellulitis. The patient reports no fever, chills, nausea or shortness of breath. His and daughter state the foot looks much better within the last 48 hours given the IV antibiotics. The patient's laboratory findings reveal white count of 8.7, down from 11.7 upon admission; hemoglobin of 11.2; hematocrit of 34.4; platelet count of 191. His ESR is 76. Most recent culture taken on 02/28/2018 reveals MRSA growth at the ulceration site on the left toe. X-ray report reveals no radiographic evidence of cortical destruction at the left second digit to suggest osteomyelitis. However, clinically the wound does probe to bone. OBJECTIVE: Nonpalpable posterior tibial pulses noted bilaterally. Weakly palpable dorsalis pedis pulse noted on the right and absent on the left. The left lower extremity is noted to be edematous and erythematous. The patient is unable to detect 5.07 g monofilament wire testing bilaterally. There is a full-thickness ulceration located at the dorsal aspect of the left second proximal interphalangeal joint that measures approximately 0.5 x 0.6 x 0.1 cm. The wound probes to phalangeal bone. There is no purulence. The entire digit is edematous. However, there is less venous congestion than previously as I had seen on 02/28/2018. There is a resolving ulceration located at the left posterior heel and measures approximately 0.2 x 0.3 x 0.1 cm. Base of that ulcer is primarily granular with scant serous drainage, that wound does not probe to tendon or bone. There are no signs of infection located at that region. ASSESSMENT: Full-thickness ulceration on the left second dorsal toe, which probes to bone; resolving left posterior heel ulceration. PLAN: The patient was seen and evaluated. Wound was cleansed with normal sterile saline and application of Bactroban and Xeroform were applied to the left second digit as well as a left posterior heel with a dry sterile dressing. Spoke with the patient's and daughter at length as the patient does have dementia and told him that we need to order an MRI because clinically the wound looks like it represents osteomyelitis as the wound probes to bone, which is a high probability of bone infection. Two options were presented, one was digital amputation of the toe if there is osteomyelitis or to undergo 4-6 weeks of antibiotics. I explained that we will need vascular clearance and we will need to ascertain whether lower extremity perfusion will allow amputation to occur before any surgical intervention is attempted. Consult with Dr. Terrence Bedolla had been ordered and it does show possible left tibial occlusive disease. The patient went for the MRI today and hopefully we will have the results within the next day. At this point, the patient's states that she would prefer not to have any surgical intervention on the toe and to have 4-6 weeks of IV antibiotics if his wound is deemed to be positive for osteomyelitis of the underlying phalangeal bone. The patient will be seen and followed daily. Luis Carlos Almendarez DPM [facility]
--- NOTE | 2018-03-02 14:38 | CP.PCM.PN ---
<Michael Mayorga - Last Filed: 03/02/18 14:42> Subjective - Date & Time of Evaluation Date of Evaluation: 03/02/18 Time of Evaluation: 09:15 - Subjective Subjective: Patient seen and examined at bedside in no acute distress. Patient denies any pain or tenderness at site of infection. Denies fevers, chills, vomiting, diarrhea, abdominal pain, chest pain, dysuria, cough. Physical Exam - Constitutional Appears: Well, Non-toxic - Head Exam Head Exam: ATRAUMATIC, NORMAL INSPECTION, NORMOCEPHALIC - Eye Exam Eye Exam: EOMI, Normal appearance - ENT Exam ENT Exam: Mucous Membranes Moist - Respiratory Exam Respiratory Exam: Clear to Ausculation Bilateral, NORMAL BREATHING PATTERN - Cardiovascular Exam Cardiovascular Exam: REGULAR RHYTHM, +S1, +S2 - GI/Abdominal Exam GI & Abdominal Exam: Soft, Normal Bowel Sounds. absent: Tenderness - Extremities Exam Extremities Exam: Pedal Edema (left lower extremity). absent: Calf Tenderness, Normal Inspection (left lower leg ), Tenderness - Back Exam Back Exam: NORMAL INSPECTION - Neurological Exam Neurological Exam: Alert, Awake, Oriented x3 - Psychiatric Exam Psychiatric exam: Normal Affect, Normal Mood - Skin Skin Exam: absent: Normal Color Additional comments: gangrenous second phalanx of left foot with ulceration. Erythema and swelling of lower left leg. Objective - Vital Signs/Intake and Output Vital Signs (last 24 hours): Temp Pulse Resp BP Pulse Ox 98.0 F 69 20 157/76 H 98 03/02/18 06:00 03/02/18 06:00 03/02/18 06:00 03/02/18 10:54 03/02/18 06:00 Intake and Output: 03/02/18 03/02/18 06:59 18:59 Intake Total 180 Balance 180 - Medications Medications: Current Medications Amlodipine Besylate (Norvasc) 5 mg PO BID [facility] Last Admin: 03/02/18 10:54 Dose: 5 mg Aspirin (Ecotrin) 81 mg PO DAILY [facility] Last Admin: 03/02/18 10:53 Dose: 81 mg Heparin Sodium (Porcine) (Heparin) 5,000 units SC Q12 [facility]; Protocol Last Admin: 03/02/18 10:54 Dose: 5,000 units Sodium Chloride (Sodium Chloride 0.9%) 1,000 mls @ 60 mls/hr IV .[id number] [facility] Last Admin: 02/28/18 22:09 Dose: 60 mls/hr Ceftaroline Fosamil 600 mg/ (Sodium Chloride) 100 mls @ 100 mls/hr IVPB Q12 [facility]; Protocol Stop: 03/10/18 10:31 Last Admin: 03/02/18 10:52 Dose: 100 mls/hr Insulin Human Lispro (Humalog Low) 0 units SC ACHS [facility]; Protocol Last Admin: 03/02/18 10:55 Dose: Not Given Losartan Potassium (Cozaar) 25 mg PO DAILY [facility] Last Admin: 03/02/18 10:53 Dose: 25 mg Mupirocin (Bactroban Ointment) 0 gm TOP DAILY [facility] Pantoprazole Sodium (Protonix Ec Tab) 20 mg PO 0600,1600 [facility] Last Admin: 03/02/18 06:03 Dose: 20 mg - Labs Labs: 03/02/18 07:20 03/02/18 07:20 PT 14.8 SECONDS (9.4-12.5) H 02/28/18 15:41 INR 1.29 02/28/18 15:41 APTT 34.7 Seconds (25.1-36.5) 02/28/18 15:41 Assessment and Plan - Assessment and Plan (Free Text) Assessment: 82 y/o M with PMHx of peripheral artery disease, chronic LLE celluiltis, COPD, HTN, dementia, obesity presents to [facility] [place] with complaints of LLE anterior tibial region cellulitis and gangrenous L foot 2nd distal phalanx. Plan: 2 y/o M with PMHx of peripheral artery disease, chronic LLE celluiltis (previous group G strep and MSSA+), COPD, HTN, dementia, obesity admitted L foot 2nd distal phalanx questionable gangrene and LLE cellulitis Plan: L foot 2nd distal phalanx osteomyelitis/LLE cellulitis Continue with Ceftaroline day# 2 as per ID Continue aspirin LLE WALKER studies reveal possible left tibial occlusive disease Podiatry on consult ID on consult L foot xray: no signs of osteomyelitis, cellulitis present Foot MRI ordered; results pending Wound culture; MRSA+ Blood culture show no growth after 24 hours Procalcitonin 0.07 Hx of Hypertension Continue home amlodipine and losartan Hx of Pre-diabetes HgA1C 6.2 Educate patient on diet and prevention of diabetes ISS-low DVT/GI PPx: Hep/protonix Dispo: Patient's does not want surgical intervention if osteomyelitis prefers 6 weeks of abx. MRI read pending. Case seen and discussed with attending Dr. Gibbs <Av Gibbs - Last Filed: 03/02/18 14:46> Objective - Vital Signs/Intake and Output Vital Signs (last 24 hours): Temp Pulse Resp BP Pulse Ox 98.0 F 69 20 157/76 H 98 03/02/18 06:00 03/02/18 06:00 03/02/18 06:00 03/02/18 10:54 03/02/18 06:00 Intake and Output: 03/02/18 03/02/18 06:59 18:59 Intake Total 180 Balance 180 - Medications Medications: Current Medications Amlodipine Besylate (Norvasc) 5 mg PO BID [facility] Last Admin: 03/02/18 10:54 Dose: 5 mg Aspirin (Ecotrin) 81 mg PO DAILY [facility] Last Admin: 03/02/18 10:53 Dose: 81 mg Heparin Sodium (Porcine) (Heparin) 5,000 units SC Q12 [facility]; Protocol Last Admin: 03/02/18 10:54 Dose: 5,000 units Sodium Chloride (Sodium Chloride 0.9%) 1,000 mls @ 60 mls/hr IV .[id number] [facility] Last Admin: 02/28/18 22:09 Dose: 60 mls/hr Ceftaroline Fosamil 600 mg/ (Sodium Chloride) 100 mls @ 100 mls/hr IVPB Q12 [facility]; Protocol Stop: 03/10/18 10:31 Last Admin: 03/02/18 10:52 Dose: 100 mls/hr Insulin Human Lispro (Humalog Low) 0 units SC ACHS [facility]; Protocol Last Admin: 03/02/18 10:55 Dose: Not Given Losartan Potassium (Cozaar) 25 mg PO DAILY [facility] Last Admin: 03/02/18 10:53 Dose: 25 mg Mupirocin (Bactroban Ointment) 0 gm TOP DAILY [facility] Pantoprazole Sodium (Protonix Ec Tab) 20 mg PO 0600,1600 [facility] Last Admin: 03/02/18 06:03 Dose: 20 mg - Labs Labs: 03/02/18 07:20 03/02/18 07:20 PT 14.8 SECONDS (9.4-12.5) H 02/28/18 15:41 INR 1.29 02/28/18 15:41 APTT 34.7 Seconds (25.1-36.5) 02/28/18 15:41 Attending/Attestation - Attestation I have personally seen and examined this patient.: Yes I have fully participated in the care of the patient.: Yes I have reviewed all pertinent clinical information, including history, physical exam and plan: Yes Notes (Text): 03/02/18 14:45 82 year old male with past medical history of PAD, COPD, borderline diabetes and hypertension who presented with left foot/leg cellulitis and and left 2nd digit ulceration. Continue with iv antibiotics as per ID and wound care as per podiatry. Wound culture is growing MRSA. Doppler showed possible left tibial occlusive disease. IR evaluation was requested. MRI is pending to rule out osteomyelitis. Continue with home medications for hypertension. Continue with insulin ss for prediabetes. A1c was 6.2. Av Gibbs MD Hospitalist.
[2018-03-02] MEDS: Sodium Chloride 0.9% 1,000 ML IV SCH (20:51)
[2018-03-03] MEDS: Insulin Lispro (humaLOG) LOW Coverage SC SCH ×4 (08:23→22:16)
--- NOTE | 2018-03-03 08:43 | PN ---
DATE: 03/03/2018 SUBJECTIVE: The patient is in bed, in no acute distress, nontoxic. PHYSICAL EXAMINATION: VITAL SIGNS: On exam, temperature is 97, blood pressure is 160/50, respiratory rate of 18, heart rate of 58. HEENT: Examination of HEENT is unremarkable. NECK: Supple. LUNGS: Have decreased breath sounds. HEART: Normal S1, S2. ABDOMEN: Soft, nontender. LABORATORY DATA: Laboratory examination reveals the white count is 8.7, hemoglobin of 11. Chemistries are noted. BUN of 25, creatinine of 1.4. Urinalysis is noted. Microbiology reveals toe culture has MRSA. Blood cultures are negative. Urine cultures are negative. The patient is currently on Teflaro. The patient had an MRI of the foot ordered, it has not been done thus far. ASSESSMENT AND PLAN: An 82-year-old male with obesity, hypertension, dementia, coronary artery disease, kidney stones, myocardial infarction, cataract, hard of hearing, history of group G Streptococcus bacteremia, cellulitis, history of Staphylococcus aureus infection, presenting with a left leg and left foot cellulitis, second toe gangrene, renal insufficiency. On Teflaro. Waiting for MRI results. The patient with methicillin-resistant Staphylococcus aureus cellulitis. Rule out underlying osteomyelitis and peripheral arterial disease. Vascular and surgical input. The patient who has renal insufficiency with a creatinine of 1.4. Wally Wylie MD
[2018-03-03] MEDS: Mupirocin 2% Ointment 15 GM TUBE TOP SCH (11:28)
--- NOTE | 2018-03-03 11:32 | CP.PCM.PN ---
<Sanju Ruelas - Last Filed: 03/03/18 11:28> Subjective - Date & Time of Evaluation Date of Evaluation: 03/03/18 Time of Evaluation: 11:28 - Subjective Subjective: Podiatry consult note for Dr. Almendarez 82 y/o M patient with seen and evaluated in the bedside for infected left 2nd toe ulcer with left foot cellulitis. Patient states that he didn't have pain in his left foot yesterday. Patient denies any other pedal complaint at this time. He denies any F/N/V/C or SOB. Objective - Vital Signs/Intake and Output Vital Signs (last 24 hours): Temp Pulse Resp BP Pulse Ox 97.7 F 65 18 166/61 H 96 03/03/18 06:00 03/03/18 06:00 03/03/18 06:00 03/03/18 06:00 03/03/18 06:00 - Medications Medications: Current Medications Amlodipine Besylate (Norvasc) 5 mg PO BID [facility] Last Admin: 03/02/18 17:57 Dose: 5 mg Aspirin (Ecotrin) 81 mg PO DAILY [facility] Last Admin: 03/02/18 10:53 Dose: 81 mg Heparin Sodium (Porcine) (Heparin) 5,000 units SC Q12 [facility]; Protocol Last Admin: 03/02/18 22:19 Dose: 5,000 units Sodium Chloride (Sodium Chloride 0.9%) 1,000 mls @ 60 mls/hr IV .[id number] [facility] Last Admin: 03/02/18 20:51 Dose: 60 mls/hr Ceftaroline Fosamil 600 mg/ (Sodium Chloride) 100 mls @ 100 mls/hr IVPB Q12 [facility]; Protocol Stop: 03/10/18 10:31 Last Admin: 03/02/18 22:12 Dose: 100 mls/hr Insulin Human Lispro (Humalog Low) 0 units SC ACHS [facility]; Protocol Last Admin: 03/03/18 08:23 Dose: Not Given Losartan Potassium (Cozaar) 25 mg PO DAILY [facility] Last Admin: 03/02/18 10:53 Dose: 25 mg Mupirocin (Bactroban Ointment) 0 gm TOP DAILY [facility] Pantoprazole Sodium (Protonix Ec Tab) 20 mg PO 0600,1600 [facility] Last Admin: 03/02/18 17:57 Dose: 20 mg - Labs Labs: 03/02/18 07:20 03/02/18 07:20 PT 14.8 SECONDS (9.4-12.5) H 02/28/18 15:41 INR 1.29 02/28/18 15:41 APTT 34.7 Seconds (25.1-36.5) 02/28/18 15:41 - Constitutional Appears: Well, Non-toxic, No Acute Distress - Head Exam Head Exam: ATRAUMATIC, NORMOCEPHALIC - Extremities Exam Additional comments: Bilateral lower extremities exam VASC: faintly palpable pedal pulses bilaterally, Temp gradient warm to cool in the right side and 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 Cap refill < 3 sec to all digits. Erythema noted to the left midfoot. Left 2nd toe is dark blue in color. Moderate non pitting edema noted to the left foot. B/L Chronic leg edema. left leg noted to be erythematous up to the level of the midcalf. NEURO: Gross and protective sensations are grossly diminished DERM: B/L Chronic leg edema. Left 2nd toe dorsal ulcer at the level of the PIPJ. 0.7X0.5X0.1cm. Mild seous drainage. No malodor. No tracking, undermining or probing to bone. Erythema noted to the left midfoot. Left 2nd toe is has an ulcer measuring 3X1X0.3cm. positive purulent drainage. No malodor. Positive probe to bone. No tracking or undermining. Positive clinical signs of active inf ection. left leg noted to be erythematous up to the level of the midcalf with multiple scab covered superficial wounds. Diffuse dryness to the lower 1/3 of the left leg and also to the plantar aspect of both feet. MSK: no pain on palpation of foot or legs bilaterally. Muscle power intact 5/5 to all groups b/l. - Neurological Exam Neurological Exam: Alert, Awake, Oriented x3 Assessment and Plan - Assessment and Plan (Free Text) Assessment: 82 y/o M patient seen and evaluated in the bedside for infected left 2nd toe ulcer with left foot cellulitis. Plan: Patient seen and evaluated in the bedside Plan discussed with Dr. Almendarez Wound Culture; MRSA Left 2nd toe Wound cleaned with saline and dressed with xeroform, gauze and kerlix X-rays left foot; No osteomyelitis, soft tissue swelling WALKER/PVR; Possible left tibial occlusive disease otherwise normal WALKER Ordered LLE venous duplex. Ordered MRI L foot Spoke to the patient and his about theSurgical option vs the conservative option in case there is osteomyelitis of the left 2nd toe Podiatry will continue to follow up the patient while in house <IsmaelmichelleLuis Carlos west - Last Filed: 03/03/18 13:04> Objective - Vital Signs/Intake and Output Vital Signs (last 24 hours): Temp Pulse Resp BP Pulse Ox 97.7 F 65 18 166/61 H 96 03/03/18 06:00 03/03/18 11:34 03/03/18 06:00 03/03/18 11:34 03/03/18 06:00 - Medications Medications: Current Medications Amlodipine Besylate (Norvasc) 5 mg PO BID [facility] Last Admin: 03/03/18 11:34 Dose: 5 mg Aspirin (Ecotrin) 81 mg PO DAILY [facility] Last Admin: 03/03/18 11:33 Dose: 81 mg Heparin Sodium (Porcine) (Heparin) 5,000 units SC Q12 [facility]; Protocol Last Admin: 03/03/18 11:33 Dose: 5,000 units Sodium Chloride (Sodium Chloride 0.9%) 1,000 mls @ 60 mls/hr IV .[id number] [facility] Last Admin: 03/02/18 20:51 Dose: 60 mls/hr Ceftaroline Fosamil 600 mg/ (Sodium Chloride) 100 mls @ 100 mls/hr IVPB Q12 [facility]; Protocol Stop: 03/10/18 10:31 Last Admin: 03/03/18 11:34 Dose: 100 mls/hr Insulin Human Lispro (Humalog Low) 0 units SC ACHS [facility]; Protocol Last Admin: 03/03/18 11:43 Dose: Not Given Losartan Potassium (Cozaar) 25 mg PO DAILY [facility] Last Admin: 03/03/18 11:33 Dose: 25 mg Mupirocin (Bactroban Ointment) 0 gm TOP DAILY [facility] Last Admin: 03/03/18 11:28 Dose: Not Given Pantoprazole Sodium (Protonix Ec Tab) 20 mg PO 0600,1600 [facility] Last Admin: 03/03/18 11:34 Dose: 20 mg - Labs Labs: 03/02/18 07:20 03/02/18 07:20 PT 14.8 SECONDS (9.4-12.5) H 02/28/18 15:41 INR 1.29 02/28/18 15:41 APTT 34.7 Seconds (25.1-36.5) 02/28/18 15:41 Attending/Attestation - Attestation I have personally seen and examined this patient.: Yes I have fully participated in the care of the patient.: Yes I have reviewed all pertinent clinical information, including history, physical exam and plan: Yes
[2018-03-03] MEDS: Ceftaroline 600 MG in Sodium Chloride 0.9% 100 ML IVPB SCH ×2 (11:34→21:13)
[2018-03-03] MEDS: Pantoprazole 20 mg EC Tab PO SCH ×2 (11:34→18:01)
--- NOTE | 2018-03-03 14:11 | CP.PCM.PN ---
<Houston Campbell - Last Filed: 03/03/18 14:26> Subjective - Date & Time of Evaluation Date of Evaluation: 03/03/18 Time of Evaluation: 14:07 - Subjective Subjective: Aki Adrian PGY2 - IM Progress Note for Hospitlaist Service Patient seen and examined this AM. No acute events overnight. Patient denies chest pain, shortness of breath, abdominal pain, nausea, vomiting, fever, chills. Patient to have podiatry check wound and re-dress. Awaiting foot MRI at this time. Objective - Vital Signs/Intake and Output Vital Signs (last 24 hours): Temp Pulse Resp BP Pulse Ox 97.7 F 65 18 166/61 H 96 03/03/18 06:00 03/03/18 11:34 03/03/18 06:00 03/03/18 11:34 03/03/18 06:00 - Medications Medications: Current Medications Amlodipine Besylate (Norvasc) 5 mg PO BID [facility] Last Admin: 03/03/18 11:34 Dose: 5 mg Aspirin (Ecotrin) 81 mg PO DAILY [facility] Last Admin: 03/03/18 11:33 Dose: 81 mg Heparin Sodium (Porcine) (Heparin) 5,000 units SC Q12 [facility]; Protocol Last Admin: 03/03/18 11:33 Dose: 5,000 units Sodium Chloride (Sodium Chloride 0.9%) 1,000 mls @ 60 mls/hr IV .[id number] [facility] Last Admin: 03/02/18 20:51 Dose: 60 mls/hr Ceftaroline Fosamil 600 mg/ (Sodium Chloride) 100 mls @ 100 mls/hr IVPB Q12 [facility]; Protocol Stop: 03/10/18 10:31 Last Admin: 03/03/18 11:34 Dose: 100 mls/hr Insulin Human Lispro (Humalog Low) 0 units SC ACHS [facility]; Protocol Last Admin: 03/03/18 11:43 Dose: Not Given Losartan Potassium (Cozaar) 25 mg PO DAILY [facility] Last Admin: 03/03/18 11:33 Dose: 25 mg Mupirocin (Bactroban Ointment) 0 gm TOP DAILY [facility] Last Admin: 03/03/18 11:28 Dose: Not Given Pantoprazole Sodium (Protonix Ec Tab) 20 mg PO 0600,1600 [facility] Last Admin: 03/03/18 11:34 Dose: 20 mg - Labs Labs: 03/02/18 07:20 03/02/18 07:20 PT 14.8 SECONDS (9.4-12.5) H 02/28/18 15:41 INR 1.29 02/28/18 15:41 APTT 34.7 Seconds (25.1-36.5) 02/28/18 15:41 - Constitutional Appears: No Acute Distress - Head Exam Head Exam: ATRAUMATIC, NORMAL INSPECTION, NORMOCEPHALIC - Eye Exam Eye Exam: EOMI, PERRL - ENT Exam ENT Exam: Mucous Membranes Moist - Respiratory Exam Respiratory Exam: Clear to Ausculation Bilateral, NORMAL BREATHING PATTERN - Cardiovascular Exam Cardiovascular Exam: REGULAR RHYTHM, +S1, +S2 - GI/Abdominal Exam GI & Abdominal Exam: Soft, Normal Bowel Sounds - Extremities Exam Additional comments: left lower extremity cellulitis - Neurological Exam Neurological Exam: Alert, Awake, CN II-XII Intact, Oriented x3 Neuro motor strength exam: Left Upper Extremity: 5, Right Upper Extremity: 5, Left Lower Extremity: 5, Right Lower Extremity: 5 - Psychiatric Exam Psychiatric exam: Normal Affect, Normal Mood - Skin Skin Exam: Dry, Intact Assessment and Plan - Assessment and Plan (Free Text) Assessment: 82 y/o M with PMHx of peripheral artery disease, chronic LLE celluiltis, COPD, HTN, dementia, obesity presents [place] [facility] with complaints of LLE anterior tibial region cellulitis and gangrenous L foot 2nd distal phalanx. Plan: L foot 2nd distal phalanx osteomyelitis/LLE cellulitis - LLE WALKER studies reveal possible left tibial occlusive disease - Podiatry on consult, following, - ID on consult - Continue with Ceftaroline day# 3 as per ID - L foot xray: no signs of osteomyelitis, cellulitis present - Foot MRI ordered; results pending - Wound culture: MRSA+ - Blood culture show no growth - Procalcitonin 0.07 Hx of Hypertension - Amlodipine - losartan Hx of Pre-diabetes - HgA1C 6.2 - Educate patient on diet and prevention of diabetes - ISS-low DVT/GI PPx: - Heparin - Protonix Dispo: Pending MRI read for recommended course of antibiotics Patient seen, case and plan discussed with attending Dr. Gibbs <Av Gibbs - Last Filed: 03/03/18 15:05> Objective - Vital Signs/Intake and Output Vital Signs (last 24 hours): Temp Pulse Resp BP Pulse Ox 97.7 F 65 18 166/61 H 96 03/03/18 06:00 03/03/18 11:34 03/03/18 06:00 03/03/18 11:34 03/03/18 06:00 - Medications Medications: Current Medications Amlodipine Besylate (Norvasc) 5 mg PO BID [facility] Last Admin: 03/03/18 11:34 Dose: 5 mg Aspirin (Ecotrin) 81 mg PO DAILY [facility] Last Admin: 03/03/18 11:33 Dose: 81 mg Heparin Sodium (Porcine) (Heparin) 5,000 units SC Q12 [facility]; Protocol Last Admin: 03/03/18 11:33 Dose: 5,000 units Sodium Chloride (Sodium Chloride 0.9%) 1,000 mls @ 60 mls/hr IV .[id number] [facility] Last Admin: 03/02/18 20:51 Dose: 60 mls/hr Ceftaroline Fosamil 600 mg/ (Sodium Chloride) 100 mls @ 100 mls/hr IVPB Q12 [facility]; Protocol Stop: 03/10/18 10:31 Last Admin: 03/03/18 11:34 Dose: 100 mls/hr Insulin Human Lispro (Humalog Low) 0 units SC ACHS [facility]; Protocol Last Admin: 03/03/18 11:43 Dose: Not Given Losartan Potassium (Cozaar) 25 mg PO DAILY [facility] Last Admin: 03/03/18 11:33 Dose: 25 mg Mupirocin (Bactroban Ointment) 0 gm TOP DAILY [facility] Last Admin: 03/03/18 11:28 Dose: Not Given Pantoprazole Sodium (Protonix Ec Tab) 20 mg PO 0600,1600 [facility] Last Admin: 03/03/18 11:34 Dose: 20 mg - Labs Labs: 03/02/18 07:20 03/02/18 07:20 PT 14.8 SECONDS (9.4-12.5) H 02/28/18 15:41 INR 1.29 02/28/18 15:41 APTT 34.7 Seconds (25.1-36.5) 02/28/18 15:41 Attending/Attestation - Attestation I have personally seen and examined this patient.: Yes I have fully participated in the care of the patient.: Yes I have reviewed all pertinent clinical information, including history, physical exam and plan: Yes Notes (Text): 03/03/18 15:03 82 year old male with past medical history of PAD, COPD, borderline diabetes and hypertension who presented with left foot/leg cellulitis and and left 2nd digit ulceration. Continue with iv antibiotics as per ID. Continue with wound care as per podiatry. Wound culture is growing MRSA. Doppler showed possible left tibial occlusive disease. IR evaluation was requested. MRI is still pending to rule out osteomyelitis. Continue with home medications for hypertension. Continue with insulin ss for prediabetes. A1c was 6.2. Av Gibbs MD Hospitalist.
[2018-03-03] MEDS: Sodium Chloride 0.9% 1,000 ML IV SCH (20:11)
[2018-03-04] MEDS: Pantoprazole 20 mg EC Tab PO SCH ×2 (05:49→18:10)
[2018-03-04 08:05] LABS: HEMOGLOBIN 10.9 g/dL (14.0-18.0); MEAN CELL VOLUME 81.4 fl (80.0-105.0); MEAN CORPUSCULAR HEMOGLOBIN 26.7 pg (25.0-35.0); MEAN CORPUSCULAR HGB CONC 32.7 g/dl (31.0-37.0); MEAN PLATELET VOLUME 8.5 fl (7.0-11.0); RBC 4.09 10^6/uL (3.5-6.1); WHITE BLOOD COUNT 7.4 10^3/uL (4.5-11.0)
--- NOTE | 2018-03-04 08:05 | CP.PCM.PN ---
<Michael Mayorga - Last Filed: 03/04/18 12:02> Subjective - Date & Time of Evaluation Date of Evaluation: 03/04/18 Time of Evaluation: 08:04 - Subjective Subjective: Patient seen and examined at bedside in no acute distress. Patient has no complaints overnight. Denies fevers, chills, pain, nausea, vomiting, diarrhea, cough, dysuria, chest pain, shortness of breath. Physical Exam - Constitutional Appears: Well, Non-toxic - Head Exam Head Exam: ATRAUMATIC, NORMAL INSPECTION, NORMOCEPHALIC - Eye Exam Eye Exam: EOMI, Normal appearance - ENT Exam ENT Exam: Mucous Membranes Moist - Respiratory Exam Respiratory Exam: Clear to Ausculation Bilateral, NORMAL BREATHING PATTERN - Cardiovascular Exam Cardiovascular Exam: REGULAR RHYTHM, +S1, +S2 - GI/Abdominal Exam GI & Abdominal Exam: Soft, Normal Bowel Sounds. absent: Tenderness - Extremities Exam Extremities Exam: Pedal Edema (left lower extremity). absent: Calf Tenderness, Normal Inspection (left lower leg ), Tenderness - Back Exam Back Exam: NORMAL INSPECTION - Neurological Exam Neurological Exam: Alert, Awake, Oriented x3 - Psychiatric Exam Psychiatric exam: Normal Affect, Normal Mood - Skin Skin Exam: absent: Normal Color Additional comments: gangrenous second phalanx of left foot with ulceration. Erythema (improving) and swelling (decreased) of lower left leg. Objective - Vital Signs/Intake and Output Vital Signs (last 24 hours): Temp Pulse Resp BP Pulse Ox 97.8 F 60 18 155/60 H 95 03/04/18 06:00 03/04/18 06:00 03/04/18 06:00 03/04/18 06:00 03/04/18 06:00 Intake and Output: 03/04/18 03/04/18 06:59 18:59 Intake Total 420 Output Total 700 Balance -280 - Medications Medications: Current Medications Amlodipine Besylate (Norvasc) 5 mg PO BID [facility] Last Admin: 03/03/18 18:01 Dose: 5 mg Aspirin (Ecotrin) 81 mg PO DAILY [facility] Last Admin: 03/03/18 11:33 Dose: 81 mg Heparin Sodium (Porcine) (Heparin) 5,000 units SC Q12 [facility]; Protocol Last Admin: 03/03/18 22:47 Dose: 5,000 units Sodium Chloride (Sodium Chloride 0.9%) 1,000 mls @ 60 mls/hr IV .[id number] [facility] Last Admin: 03/03/18 20:11 Dose: 60 mls/hr Ceftaroline Fosamil 600 mg/ (Sodium Chloride) 100 mls @ 100 mls/hr IVPB Q12 [facility]; Protocol Stop: 03/10/18 10:31 Last Admin: 03/03/18 21:13 Dose: 100 mls/hr Insulin Human Lispro (Humalog Low) 0 units SC ACHS [facility]; Protocol Last Admin: 03/03/18 22:16 Dose: Not Given Losartan Potassium (Cozaar) 25 mg PO DAILY [facility] Last Admin: 03/03/18 11:33 Dose: 25 mg Mupirocin (Bactroban Ointment) 0 gm TOP DAILY [facility] Last Admin: 03/03/18 11:28 Dose: Not Given Pantoprazole Sodium (Protonix Ec Tab) 20 mg PO 0600,1600 [facility] Last Admin: 03/04/18 05:49 Dose: 20 mg - Labs Labs: 03/02/18 07:20 03/02/18 07:20 PT 14.8 SECONDS (9.4-12.5) H 02/28/18 15:41 INR 1.29 02/28/18 15:41 APTT 34.7 Seconds (25.1-36.5) 02/28/18 15:41 Assessment and Plan - Assessment and Plan (Free Text) Assessment: 82 y/o M with PMHx of peripheral artery disease, chronic LLE cellulitis, COPD, h ypertension, dementia, obesity presents to [facility] [place] with complaints of LLE anterior tibial region cellulitis and gangrenous L foot 2nd distal phalanx. Plan: L foot 2nd distal phalanx osteomyelitis/LLE cellulitis - LLE WALKER studies reveal possible left tibial occlusive disease - Podiatry on consult - ID on consult - Continue with Ceftaroline day# 4 as per ID (CrCl >55; can conitnue with current abx dose) - L foot xray: no signs of osteomyelitis, cellulitis present - Foot MRI ordered - Wound culture: MRSA+ - Blood culture show no growth - Procalcitonin 0.07 Hx of Hypertension -Continue amlodipine and losartan Hx of Pre-diabetes - HgA1C 6.2 - Educate patient on diet and prevention of diabetes - ISS-low DVT/GI PPx: - Heparin - Protonix Dispo: Pending MRI read for recommended course of antibiotics Patient seen, case and plan discussed with attending Dr. Gibbs <Av Gibbs - Last Filed: 03/04/18 16:19> Objective - Vital Signs/Intake and Output Vital Signs (last 24 hours): Temp Pulse Resp BP Pulse Ox 97.6 F 59 L 18 162/53 H 94 L 03/04/18 14:00 03/04/18 14:00 03/04/18 14:00 03/04/18 14:00 03/04/18 14:00 Intake and Output: 03/04/18 03/04/18 06:59 18:59 Intake Total 420 Output Total 700 Balance -280 - Medications Medications: Current Medications Amlodipine Besylate (Norvasc) 5 mg PO BID [facility] Last Admin: 03/04/18 10:34 Dose: 5 mg Aspirin (Ecotrin) 81 mg PO DAILY [facility] Last Admin: 03/04/18 10:34 Dose: 81 mg Heparin Sodium (Porcine) (Heparin) 5,000 units SC Q12 [facility]; Protocol Last Admin: 03/04/18 10:34 Dose: 5,000 units Sodium Chloride (Sodium Chloride 0.9%) 1,000 mls @ 60 mls/hr IV .[id number] [facility] Last Admin: 03/04/18 10:35 Dose: 60 mls/hr Ceftaroline Fosamil 600 mg/ (Sodium Chloride) 100 mls @ 100 mls/hr IVPB Q12 [facility]; Protocol Stop: 03/10/18 10:31 Last Admin: 03/04/18 10:35 Dose: 100 mls/hr Insulin Human Lispro (Humalog Low) 0 units SC ACHS [facility]; Protocol Last Admin: 03/04/18 13:56 Dose: Not Given Losartan Potassium (Cozaar) 25 mg PO DAILY [facility] Last Admin: 03/04/18 10:34 Dose: 25 mg Mupirocin (Bactroban Ointment) 0 gm TOP DAILY [facility] Last Admin: 03/04/18 10:34 Dose: Not Given Pantoprazole Sodium (Protonix Ec Tab) 20 mg PO 0600,1600 [facility] Last Admin: 03/04/18 05:49 Dose: 20 mg - Labs Labs: 03/04/18 07:00 03/04/18 07:00 PT 14.8 SECONDS (9.4-12.5) H 02/28/18 15:41 INR 1.29 02/28/18 15:41 APTT 34.7 Seconds (25.1-36.5) 02/28/18 15:41 Attending/Attestation - Attestation I have personally seen and examined this patient.: Yes I have fully participated in the care of the patient.: Yes I have reviewed all pertinent clinical information, including history, physical exam and plan: Yes Notes (Text): 03/04/18 16:17 82 year old male with past medical history of PAD, COPD, borderline diabetes and hypertension who presented with left foot/leg cellulitis and and left 2nd digit ulceration. Continue with iv antibiotics as per ID. Continue with wound care as per podiatry. Wound culture is growing MRSA. Doppler showed possible left tibial occlusive disease. IR evaluation was requested. MRI is still pending to rule out osteomyelitis. Further recommendations to follow after MRI. Continue with home medications for hypertension. Continue with insulin ss for prediabetes. A1c was 6.2. Av Gibbs MD Hospitalist.
[2018-03-04 08:14] LABS: BLOOD UREA NITROGEN 21 mg/dL (7-21); CALCIUM 8.5 mg/dL (8.4-10.5); GFR NON-AFRICAN AMERICAN 53
[2018-03-04] MEDS: Insulin Lispro (humaLOG) LOW Coverage SC SCH ×4 (10:33→23:12)
[2018-03-04] MEDS: Mupirocin 2% Ointment 15 GM TUBE TOP SCH (10:34)
[2018-03-04] MEDS: Sodium Chloride 0.9% 1,000 ML IV SCH (10:35)
[2018-03-04] MEDS: Ceftaroline 600 MG in Sodium Chloride 0.9% 100 ML IVPB SCH ×2 (10:35→22:22)
--- NOTE | 2018-03-04 12:07 | PN ---
DATE: 03/04/2018 SUBJECTIVE: The patient is in bed, in no acute distress, nontoxic. He is doing well. PHYSICAL EXAMINATION: VITAL SIGNS: On exam, temperature is 97, blood pressure is 150/60, respiratory rate of 18. HEENT: Examination of HEENT is unremarkable. NECK: Supple. LUNGS: Have decreased breath sounds. HEART: Normal S1, S2. ABDOMEN: Soft. LABORATORY DATA: Laboratory examination reveals a white count of 7.4, hemoglobin of 10. Chemistries are noted. BUN of 21, creatinine of 1.3. Microbiology reveals MRSA from his toe culture and the blood cultures are negative. Urine cultures are negative. Review of orders revealed the patient to be on ceftaroline. ASSESSMENT AND PLAN: An 82-year-old male with obesity, hypertension, dementia, coronary artery disease, kidney stones, myocardial infarction, cataract, hard of hearing, history of group G Streptococcus bacteremia, cellulitis, history of Staphylococcus aureus infection. Presented with a left leg and the left foot cellulitis and second toe gangrene with methicillin-resistant Staphylococcus aureus, also with renal insufficiency, on Teflaro. Vascular workup, podiatric workup and the patient is scheduled for an MRI and Dopplers. Must rule out underlying osteomyelitis and further progression of underlying vascular arterial disease. Wally Wylie MD
--- NOTE | 2018-03-04 13:21 | CP.PCM.PN ---
<Sanju Ruelas - Last Filed: 03/04/18 13:18> Subjective - Date & Time of Evaluation Date of Evaluation: 03/04/18 Time of Evaluation: 13:18 - Subjective Subjective: Podiatry consult note for Dr. Amlendarez 82 y/o M patient with seen and evaluated in the bedside for infected left 2nd toe ulcer with left foot cellulitis. Patient states that he didn't have pain in his left foot since yesterday. Patient denies any other pedal complaint at this time. He denies any F/N/V/C or SOB. Objective - Vital Signs/Intake and Output Vital Signs (last 24 hours): Temp Pulse Resp BP Pulse Ox 97.8 F 60 18 161/61 H 95 03/04/18 08:04 03/04/18 10:34 03/04/18 08:04 03/04/18 10:34 03/04/18 08:04 Intake and Output: 03/04/18 03/04/18 06:59 18:59 Intake Total 420 Output Total 700 Balance -280 - Medications Medications: Current Medications Amlodipine Besylate (Norvasc) 5 mg PO BID [facility] Last Admin: 03/04/18 10:34 Dose: 5 mg Aspirin (Ecotrin) 81 mg PO DAILY [facility] Last Admin: 03/04/18 10:34 Dose: 81 mg Heparin Sodium (Porcine) (Heparin) 5,000 units SC Q12 [facility]; Protocol Last Admin: 03/04/18 10:34 Dose: 5,000 units Sodium Chloride (Sodium Chloride 0.9%) 1,000 mls @ 60 mls/hr IV .[id number] [facility] Last Admin: 03/04/18 10:35 Dose: 60 mls/hr Ceftaroline Fosamil 600 mg/ (Sodium Chloride) 100 mls @ 100 mls/hr IVPB Q12 [facility]; Protocol Stop: 03/10/18 10:31 Last Admin: 03/04/18 10:35 Dose: 100 mls/hr Insulin Human Lispro (Humalog Low) 0 units SC ACHS [facility]; Protocol Last Admin: 03/04/18 10:33 Dose: Not Given Losartan Potassium (Cozaar) 25 mg PO DAILY [facility] Last Admin: 03/04/18 10:34 Dose: 25 mg Mupirocin (Bactroban Ointment) 0 gm TOP DAILY [facility] Last Admin: 03/04/18 10:34 Dose: Not Given Pantoprazole Sodium (Protonix Ec Tab) 20 mg PO 0600,1600 [facility] Last Admin: 03/04/18 05:49 Dose: 20 mg - Labs Labs: 03/04/18 07:00 03/04/18 07:00 PT 14.8 SECONDS (9.4-12.5) H 02/28/18 15:41 INR 1.29 02/28/18 15:41 APTT 34.7 Seconds (25.1-36.5) 02/28/18 15:41 - Constitutional Appears: Well, Non-toxic, No Acute Distress - Head Exam Head Exam: ATRAUMATIC, NORMOCEPHALIC - Extremities Exam Additional comments: Bilateral lower extremities exam VASC: faintly palpable pedal pulses bilaterally, Temp gradient warm to cool in the right side and 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 Cap refill < 3 sec to all digits. Erythema noted to the left midfoot. Moderate non pitting edema noted to the left foot. B/L Chronic leg edema. left leg noted to be erythematous up to the level of the midcalf. NEURO: Gross and protective sensations are grossly diminished DERM: B/L Chronic leg edema. Left 2nd toe is has an ulcer measuring 3X1X0.3cm. positive purulent drainage. No malodor. Positive probe to bone. No tracking or undermining. Positive clinical signs of active infection. Diffuse dryness to the lower 1/3 of the left leg and also to the plantar aspect of both feet. MSK: no pain on palpation of foot or legs bilaterally. Muscle power intact 5/5 to all groups b/l. - Neurological Exam Neurological Exam: Alert, Awake, Oriented x3 Assessment and Plan - Assessment and Plan (Free Text) Assessment: 82 y/o M patient seen and evaluated in the bedside for infected left 2nd toe ulcer with left foot cellulitis. Plan: Patient seen and evaluated in the bedside with Dr. Almendarez Plan discussed with Dr. Almendarez Wound Culture; MRSA Left 2nd toe Wound cleaned with saline and dressed with xeroform, gauze and kerlix X-rays left foot; No osteomyelitis, soft tissue swelling WALKER/PVR; Possible left tibial occlusive disease otherwise normal WALKER LLE venous duplex; Pending official report. Ordered MRI L foot Spoke yesterday to the patient and his about the Surgical option vs the conservative option in case there is osteomyelitis of the left 2nd toe Podiatry will continue to follow up the patient while in house <Luis Carlos Almendarez - Last Filed: 03/05/18 10:16> Objective - Vital Signs/Intake and Output Vital Signs (last 24 hours): Temp Pulse Resp BP Pulse Ox 98 F 57 L 18 160/74 H 95 03/05/18 06:00 03/05/18 06:00 03/05/18 06:00 03/05/18 10:02 03/05/18 06:00 Intake and Output: 03/05/18 03/05/18 06:59 18:59 Intake Total 900 Balance 900 - Medications Medications: Current Medications Amlodipine Besylate (Norvasc) 5 mg PO BID [facility] Last Admin: 03/05/18 10:02 Dose: 5 mg Aspirin (Ecotrin) 81 mg PO DAILY [facility] Last Admin: 03/05/18 10:02 Dose: 81 mg Heparin Sodium (Porcine) (Heparin) 5,000 units SC Q8H [facility]; Protocol Ceftaroline Fosamil 600 mg/ (Sodium Chloride) 100 mls @ 100 mls/hr IVPB Q12 [facility]; Protocol Stop: 03/10/18 10:31 Last Admin: 03/05/18 10:03 Dose: 100 mls/hr Insulin Human Lispro (Humalog Low) 0 units SC ACHS [facility]; Protocol Last Admin: 03/05/18 08:00 Dose: Not Given Losartan Potassium (Cozaar) 25 mg PO DAILY [facility] Last Admin: 03/05/18 10:02 Dose: 25 mg Mupirocin (Bactroban Ointment) 0 gm TOP DAILY [facility] Last Admin: 03/05/18 10:06 Dose: 1 applic Pantoprazole Sodium (Protonix Ec Tab) 20 mg PO 0600,1600 [facility] Last Admin: 03/05/18 05:08 Dose: 20 mg - Labs Labs: 03/05/18 06:20 03/05/18 06:20 PT 14.8 SECONDS (9.4-12.5) H 02/28/18 15:41 INR 1.29 02/28/18 15:41 APTT 34.7 Seconds (25.1-36.5) 02/28/18 15:41 Attending/Attestation - Attestation I have personally seen and examined this patient.: Yes I have fully participated in the care of the patient.: Yes I have reviewed all pertinent clinical information, including history, physical exam and plan: Yes
--- NOTE | 2018-03-04 13:37 | US ---
PROCEDURE: Left lower extremity venous US HISTORY: Leg pain and swelling. Evaluate for DVT. PHYSICIAN(S): Terrence Bedolla MD. TECHNIQUE: Duplex sonography and color-flow Doppler with graded compression were used to evaluate the deep venous system of the left lower extremity. The exam is somewhat limited due to edema. The left tibial veins are not well seen FINDINGS: The visualized deep venous system of the left lower extremity is sonographically normal and compressible. Normal wave forms and augmentation are seen. There is no sonographic evidence for deep venous thrombosis in the visualized segments of the left lower extremity. IMPRESSION: 1. No sonographic evidence for deep venous thrombosis in the visualized segments of the left lower extremity.
[2018-03-05] MEDS: Pantoprazole 20 mg EC Tab PO SCH ×2 (05:08→18:50)
[2018-03-05 07:06] LABS: BLOOD UREA NITROGEN 17 mg/dL (7-21); CALCIUM 8.8 mg/dL (8.4-10.5); GFR NON-AFRICAN AMERICAN 53
[2018-03-05 07:11] LABS: HEMOGLOBIN 11.2 g/dL (14.0-18.0); MEAN CELL VOLUME 81.7 fl (80.0-105.0); MEAN CORPUSCULAR HEMOGLOBIN 26.6 pg (25.0-35.0); MEAN CORPUSCULAR HGB CONC 32.6 g/dl (31.0-37.0); MEAN PLATELET VOLUME 8.1 fl (7.0-11.0); RBC 4.21 10^6/uL (3.5-6.1); RED CELL DISTRIBUTION WIDTH 13.1 % (11.5-14.5); WHITE BLOOD COUNT 6.4 10^3/uL (4.5-11.0)
[2018-03-05] MEDS: Insulin Lispro (humaLOG) LOW Coverage SC SCH ×3 (08:00→17:00)
--- NOTE | 2018-03-05 09:18 | CP.PCM.PN ---
<Sincere Aparicio - Last Filed: 03/05/18 13:15> Subjective - Date & Time of Evaluation Date of Evaluation: 03/05/18 Time of Evaluation: 07:40 - Subjective Subjective: Sincere Aparicio PGY-1 Progress Note for Hospitalist Service Patient seen and evaluated at bedside. No acute events reported overnight. Denies chest pain, shortness of breath, palpitations but reports some distal L foot pain. Patient L foot wrapped. Objective - Vital Signs/Intake and Output Vital Signs (last 24 hours): Temp Pulse Resp BP Pulse Ox 98 F 57 L 18 180/69 H 95 03/05/18 06:00 03/05/18 06:00 03/05/18 06:00 03/05/18 06:00 03/05/18 06:00 Intake and Output: 03/05/18 03/05/18 06:59 18:59 Intake Total 900 Balance 900 - Medications Medications: Current Medications Amlodipine Besylate (Norvasc) 5 mg PO BID [facility]S AT [facility] Last Admin: 03/05/18 05:10 Dose: 5 mg Aspirin (Ecotrin) 81 mg PO DAILY [facility]S [facility] Last Admin: 03/04/18 10:34 Dose: 81 mg Heparin Sodium (Porcine) (Heparin) 5,000 units SC Q12 [facility] 234 [facility]S [facility]; Protocol Last Admin: 03/04/18 22:23 Dose: 5,000 units Sodium Chloride (Sodium Chloride 0.9%) 1,000 mls @ 60 mls/hr IV .[id number] [facility]S [facility] 234 [facility]S AT [facility] Last Admin: 03/04/18 10:35 Dose: 60 mls/hr Ceftaroline Fosamil 600 mg/ (Sodium Chloride) 100 mls @ 100 mls/hr IVPB Q12 [facility] 234 [facility]S AT [facility]; Protocol Stop: 03/10/18 10:31 Last Admin: 03/04/18 22:22 Dose: 100 mls/hr Insulin Human Lispro (Humalog Low) 0 units SC ACHS [facility]S [facility] 234 BEDS [facility]; Protocol Last Admin: 03/04/18 23:12 Dose: Not Given Losartan Potassium (Cozaar) 25 mg PO DAILY [facility] 234 [facility]S [facility] Last Admin: 03/05/18 05:08 Dose: 25 mg Mupirocin (Bactroban Ointment) 0 gm TOP DAILY [facility] 234 [facility]S AT [facility] Last Admin: 03/04/18 10:34 Dose: Not Given Pantoprazole Sodium (Protonix Ec Tab) 20 mg PO 0600,1600 [facility] 234 [facility]S [facility] Last Admin: 03/05/18 05:08 Dose: 20 mg - Labs Labs: 03/05/18 06:20 03/05/18 06:20 PT 14.8 SECONDS (9.4-12.5) H 02/28/18 15:41 INR 1.29 02/28/18 15:41 APTT 34.7 Seconds (25.1-36.5) 02/28/18 15:41 - Additional Findings Additional findings: - Constitutional Appears: Well, Non-toxic - Head Exam Head Exam: ATRAUMATIC, NORMAL INSPECTION, NORMOCEPHALIC - Eye Exam Eye Exam: EOMI, Normal appearance - ENT Exam ENT Exam: Mucous Membranes Moist - Respiratory Exam Respiratory Exam: Clear to Ausculation Bilateral, NORMAL BREATHING PATTERN - Cardiovascular Exam Cardiovascular Exam: REGULAR RHYTHM, +S1, +S2 - GI/Abdominal Exam GI & Abdominal Exam: Soft, Normal Bowel Sounds. absent: Tenderness - Extremities Exam Extremities Exam: Pedal Edema (left lower extremity). absent: Calf Tenderness, Normal Inspection (left lower leg ), Tenderness - Back Exam Back Exam: NORMAL INSPECTION - Neurological Exam Neurological Exam: Alert, Awake, Oriented x3 - Psychiatric Exam Psychiatric exam: Normal Affect, Normal Mood - Skin Skin Exam: absent: Normal Color Additional comments: gangrenous second phalanx of left foot with ulceration. Erythema (improving) and swelling (decreased) of lower left leg. Assessment and Plan - Assessment and Plan (Free Text) Assessment: 82 y/o M with PMHx of peripheral artery disease, chronic LLE cellulitis, COPD, hypertension, dementia, obesity presents to [facility] with complaints of LLE anterior tibial region cellulitis and gangrenous L foot 2nd distal phalanx. Plan: L foot 2nd distal phalanx osteomyelitis/LLE cellulitis - LLE WALKER studies reveal possible left tibial occlusive disease - Podiatry on consult - ID on consult - Continue with Ceftaroline day# 5 as per ID (CrCl >55; can continue with current abx dose) - L foot xray: no signs of osteomyelitis, cellulitis present - F/U Foot MRI - Wound culture: MRSA+ - Blood culture show no growth - Procalcitonin 0.07 Hx of Hypertension -Continue amlodipine and losartan IVF discontinued, so will monitor response with BP Hx of Pre-diabetes - HgA1C 6.2 - Educate patient on diet and prevention of diabetes - ISS-low DVT/GI PPx: - Heparin - Protonix Dispo: Pending MRI read for recommended course of antibiotics. MRI performed yesterday per nursing notes and radiology. F/u PT eval. Patient seen, case reviewed and plan approved by Dr. Lao. Sincere Aparicio, PGY-1 <Yousif Lao - Last Filed: 03/10/18 18:34> Objective - Vital Signs/Intake and Output Vital Signs (last 24 hours): Temp Pulse Resp BP Pulse Ox 97.8 F 43 L 18 144/46 L 96 03/10/18 07:00 03/10/18 17:33 03/10/18 07:00 03/10/18 17:33 03/10/18 07:00 Intake and Output: 03/10/18 03/10/18 06:59 18:59 Intake Total 570 Output Total 400 Balance 170 - Medications Medications: Current Medications Acetaminophen (Tylenol 325mg Tab) 650 mg PO Q4H PRN PRN Reason: Pain, Mild (1-3) Amlodipine Besylate (Norvasc) 5 mg PO BID [facility]S [facility] Last Admin: 03/10/18 17:33 Dose: Not Given Heparin Sodium (Porcine) (Heparin) 5,000 units SC Q8H [facility]S [facility] 234 BEDS AT [facility]; Protocol Last Admin: 03/10/18 17:22 Dose: 5,000 units Ceftaroline Fosamil 600 mg/ (Sodium Chloride) 100 mls @ 100 mls/hr IVPB Q12 [facility] 234 [facility]S AT [facility] Last Admin: 03/10/18 09:42 Dose: 100 mls/hr Insulin Human Lispro (Humalog Low) 0 units SC ACHS [facility]S [facility] 234 BEDS AT [facility]; Protocol Last Admin: 03/10/18 16:57 Dose: Not Given Losartan Potassium (Cozaar) 25 mg PO DAILY [facility] 234 B[facility]S [facility] Last Admin: 03/10/18 09:37 Dose: 25 mg Metoclopramide HCl (Reglan) 10 mg IV ONCE PRN PRN Reason: Nausea/Vomiting Ondansetron HCl (Zofran Inj) 4 mg IVP ONCE PRN PRN Reason: Nausea/Vomiting Oxycodone/Acetaminophen (Percocet 5/325 Mg Tab) 1 tab PO Q4H PRN PRN Reason: Pain, moderate (4-7) Stop: 03/11/18 08:45 Oxycodone/Acetaminophen (Percocet 5/325 Mg Tab) 2 tab PO Q4H PRN PRN Reason: Pain, severe (8-10) Stop: 03/11/18 08:45 Last Admin: 03/08/18 16:48 Dose: 2 tab Pantoprazole Sodium (Protonix Ec Tab) 20 mg PO 0600,1600 [facility] Last Admin: 03/10/18 17:23 Dose: 20 mg - Labs Labs: 03/10/18 10:00 03/09/18 06:30 PT 14.8 SECONDS (9.4-12.5) H 02/28/18 15:41 INR 1.29 02/28/18 15:41 APTT 34.7 Seconds (25.1-36.5) 02/28/18 15:41 Attending/Attestation - Attestation I have personally seen and examined this patient.: Yes I have fully participated in the care of the patient.: Yes I have reviewed all pertinent clinical information, including history, physical exam and plan: Yes Notes (Text): 03/10/18 18:34 Medical record note made by the resident after discussion with my direction and input after the patient was personally seen and examined by me. I have reviewed the chart and agree that the record accurately reflects by personal performance of the history, physical exam, data review, and medical decision-making, in the course for the patient. I have also personally directed the plan of care.
[2018-03-05] MEDS: Ceftaroline 600 MG in Sodium Chloride 0.9% 100 ML IVPB SCH ×2 (10:03→22:09)
[2018-03-05] MEDS: Mupirocin 2% Ointment 15 GM TUBE TOP SCH (10:06)
--- NOTE | 2018-03-05 12:06 | CP.PCM.PN ---
Subjective - Date & Time of Evaluation Date of Evaluation: 03/05/18 Time of Evaluation: 08:30 - Subjective Subjective: Comfortable in bed, no pain in the left foot, no fevers, no nausea, no diarrhea. Objective - Vital Signs/Intake and Output Vital Signs (last 24 hours): Temp Pulse Resp BP Pulse Ox 97.9 F 59 L 18 180/69 H 96 03/04/18 22:00 03/05/18 05:10 03/04/18 22:00 03/05/18 05:10 03/04/18 22:00 Intake and Output: 03/05/18 03/05/18 06:59 18:59 Intake Total 900 Balance 900 - Medications Medications: Current Medications Amlodipine Besylate (Norvasc) 5 mg PO BID [facility] Last Admin: 03/05/18 05:10 Dose: 5 mg Aspirin (Ecotrin) 81 mg PO DAILY [facility] Last Admin: 03/04/18 10:34 Dose: 81 mg Heparin Sodium (Porcine) (Heparin) 5,000 units SC Q12 [facility]; Protocol Last Admin: 03/04/18 22:23 Dose: 5,000 units Sodium Chloride (Sodium Chloride 0.9%) 1,000 mls @ 60 mls/hr IV .[id number] [facility] Last Admin: 03/04/18 10:35 Dose: 60 mls/hr Ceftaroline Fosamil 600 mg/ (Sodium Chloride) 100 mls @ 100 mls/hr IVPB Q12 [facility]; Protocol Stop: 03/10/18 10:31 Last Admin: 03/04/18 22:22 Dose: 100 mls/hr Insulin Human Lispro (Humalog Low) 0 units SC ACHS [facility]; Protocol Last Admin: 03/04/18 23:12 Dose: Not Given Losartan Potassium (Cozaar) 25 mg PO DAILY [facility] Last Admin: 03/05/18 05:08 Dose: 25 mg Mupirocin (Bactroban Ointment) 0 gm TOP DAILY [facility] Last Admin: 03/04/18 10:34 Dose: Not Given Pantoprazole Sodium (Protonix Ec Tab) 20 mg PO 0600,1600 [facility] Last Admin: 03/05/18 05:08 Dose: 20 mg - Labs Labs: 03/05/18 06:20 03/05/18 06:20 PT 14.8 SECONDS (9.4-12.5) H 02/28/18 15:41 INR 1.29 02/28/18 15:41 APTT 34.7 Seconds (25.1-36.5) 02/28/18 15:41 - Constitutional Appears: No Acute Distress, Chronically Ill - Head Exam Head Exam: NORMAL INSPECTION - Respiratory Exam Respiratory Exam: Decreased Breath Sounds - Cardiovascular Exam Cardiovascular Exam: +S1, +S2 - GI/Abdominal Exam GI & Abdominal Exam: Soft. absent: Tenderness - Extremities Exam Additional comments: left foot 2nd toe with discoloration, no discharge or bleeding Assessment and Plan - Assessment and Plan (Free Text) Plan: Assessment left leg and foot cellulitis and 2nd toe gangrene, with MRSA history of Group G strep bacteremia, probably secondary to bilateral lower extremities skin and skin structure infection; history of rhabdomyolysis CAD HTN chronic renal failure dementia obesity with BMI 32 Plan continue Teflaro pending further Podiatry plans, vascular studies and MRI of the lower extremity to rule out osteomyelitis will continue to monitor clinically
--- NOTE | 2018-03-05 21:16 | CP.PCM.PN ---
<RaviGraham robledo - Last Filed: 03/05/18 21:12> Subjective - Date & Time of Evaluation Date of Evaluation: 03/05/18 Time of Evaluation: 21:12 - Subjective Subjective: Podiatry progress note for Dr. Hay 82 y/o male patient with seen and evaluated at bedside for infected left 2nd digit ulceration with left foot cellulitis. Patient is seen resting comfortably in bed. Patient denies any other pedal complaint at this time. Patient is aware he will require surgery for the 2nd digit left foot. He denies any F/N/V/C or SOB. Objective - Vital Signs/Intake and Output Vital Signs (last 24 hours): Temp Pulse Resp BP Pulse Ox 99 F 85 18 134/95 H 100 03/05/18 14:00 03/05/18 14:00 03/05/18 14:00 03/05/18 14:00 03/05/18 14:00 - Medications Medications: Current Medications Amlodipine Besylate (Norvasc) 5 mg PO BID [facility] Last Admin: 03/05/18 18:46 Dose: 5 mg Aspirin (Ecotrin) 81 mg PO DAILY [facility] Last Admin: 03/05/18 10:02 Dose: 81 mg Heparin Sodium (Porcine) (Heparin) 5,000 units SC Q8H [facility]; Protocol Last Admin: 03/05/18 18:45 Dose: 5,000 units Ceftaroline Fosamil 600 mg/ (Sodium Chloride) 100 mls @ 100 mls/hr IVPB Q12 [facility]; Protocol Stop: 03/10/18 10:31 Last Admin: 03/05/18 10:03 Dose: 100 mls/hr Insulin Human Lispro (Humalog Low) 0 units SC ACHS [facility]; Protocol Last Admin: 03/05/18 17:00 Dose: Not Given Losartan Potassium (Cozaar) 25 mg PO DAILY [facility] Last Admin: 03/05/18 10:02 Dose: 25 mg Mupirocin (Bactroban Ointment) 0 gm TOP DAILY [facility] Last Admin: 03/05/18 10:06 Dose: 1 applic Pantoprazole Sodium (Protonix Ec Tab) 20 mg PO 0600,1600 [facility] Last Admin: 03/05/18 18:50 Dose: 20 mg - Labs Labs: 03/05/18 06:20 03/05/18 06:20 PT 14.8 SECONDS (9.4-12.5) H 02/28/18 15:41 INR 1.29 02/28/18 15:41 APTT 34.7 Seconds (25.1-36.5) 02/28/18 15:41 - Constitutional Appears: Well, Non-toxic, No Acute Distress - Head Exam Head Exam: ATRAUMATIC, NORMOCEPHALIC - Extremities Exam Additional comments: Bilateral lower extremities exam VASC: faintly palpable pedal pulses bilaterally, Temp gradient warm to cool in the right side and 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 Cap refill < 3 sec to all digits. Erythema noted to the left midfoot, improving. Moderate non pitting edema noted to the left foot. NEURO: Gross and protective sensations are grossly diminished DERM: Left 2nd toe ulceration measuring 3 X 3 X 0.3cm, positive purulent drainage, positive malodor, Positive probe to bone, No tracking or undermining, Positive clinical signs of active infection MSK: no pain on palpation of foot or legs bilaterally. Muscle power intact 5/5 to all groups b/l. - Neurological Exam Neurological Exam: Alert, Awake - Psychiatric Exam Psychiatric exam: Normal Affect, Normal Mood Assessment and Plan - Assessment and Plan (Free Text) Assessment: 82 y/o M patient seen and evaluated in the bedside for infected left 2nd digit ulceration Plan: Patient seen and evaluated in the bedside with Dr. Hay Plan discussed with attending Wound Culture: MRSA Wound cleansed with saline and dressed with betadine, gauze and kerlix X-rays left foot: No osteomyelitis, soft tissue swelling WALKER/PVR: Possible left tibial occlusive disease otherwise normal WALKER LLE venous duplex: no evidence of DVT MRI Left Foot- Ordered, pending Discussed with patient the surgical option amputation of left 2nd digit, all risks benefits and complications discussed Patient states he would like to speak to family before decided Podiatry will continue to follow up the patient while in house <Megan Hay - Last Filed: 03/08/18 07:53> Objective - Vital Signs/Intake and Output Vital Signs (last 24 hours): Temp Pulse Resp BP Pulse Ox 97.6 F 53 L 18 149/66 94 L 03/08/18 06:50 03/08/18 06:50 03/08/18 06:50 03/08/18 06:50 03/08/18 06:50 Intake and Output: 03/08/18 03/08/18 06:59 18:59 Intake Total 540 Output Total 200 Balance 340 - Medications Medications: Current Medications Amlodipine Besylate (Norvasc) 5 mg PO BID [facility] Last Admin: 03/07/18 18:22 Dose: 5 mg Heparin Sodium (Porcine) (Heparin) 5,000 units SC Q8H [facility]; Protocol Last Admin: 03/07/18 12:15 Dose: 5,000 units Ceftaroline Fosamil 600 mg/ (Sodium Chloride) 100 mls @ 100 mls/hr IVPB Q12 [facility] Last Admin: 03/07/18 22:35 Dose: 100 mls/hr Insulin Human Lispro (Humalog Low) 0 units SC ACHS [facility]; Protocol Last Admin: 03/07/18 22:35 Dose: Not Given Losartan Potassium (Cozaar) 25 mg PO DAILY [facility] Last Admin: 03/07/18 10:54 Dose: 25 mg Mupirocin (Bactroban Ointment) 0 gm TOP DAILY [facility] Last Admin: 03/07/18 11:30 Dose: 1 applic Pantoprazole Sodium (Protonix Ec Tab) 20 mg PO 0600,1600 [facility] Last Admin: 03/08/18 06:15 Dose: Not Given - Labs Labs: 03/07/18 05:40 03/07/18 05:40 PT 14.8 SECONDS (9.4-12.5) H 02/28/18 15:41 INR 1.29 02/28/18 15:41 APTT 34.7 Seconds (25.1-36.5) 02/28/18 15:41 Attending/Attestation - Attestation I have personally seen and examined this patient.: Yes I have fully participated in the care of the patient.: Yes I have reviewed all pertinent clinical information, including history, physical exam and plan: Yes
[2018-03-06] MEDS: Pantoprazole 20 mg EC Tab PO SCH ×2 (05:56→17:04)
[2018-03-06 06:52] LABS: CALCIUM 8.7 mg/dL (8.4-10.5)
[2018-03-06 07:13] LABS: MEAN CELL VOLUME 81.8 fl (80.0-105.0); MEAN CORPUSCULAR HEMOGLOBIN 26.4 pg (25.0-35.0); MEAN CORPUSCULAR HGB CONC 32.3 g/dl (31.0-37.0); MEAN PLATELET VOLUME 8.1 fl (7.0-11.0); RBC 4.17 10^6/uL (3.5-6.1); RED CELL DISTRIBUTION WIDTH 13.1 % (11.5-14.5); WHITE BLOOD COUNT 7.1 10^3/uL (4.5-11.0)
--- NOTE | 2018-03-06 11:33 | CP.PCM.PN ---
<Sincere Aparicio - Last Filed: 03/06/18 11:30> Subjective - Date & Time of Evaluation Date of Evaluation: 03/06/18 Time of Evaluation: 07:30 - Subjective Subjective: Sincere Aparicio PGY-1 Progress Note for Hospitalist Service Patient seen and evaluated at bedside. No acute events reported overnight. Denies chest pain, shortness of breath, palpitations but reports some distal L foot pain. Patient L foot wrapped. Some dried blood evident. Patient interested to know plan moving forward. Objective - Vital Signs/Intake and Output Vital Signs (last 24 hours): Temp Pulse Resp BP Pulse Ox 97.4 F L 66 20 150/61 96 03/06/18 06:00 03/06/18 11:08 03/06/18 06:00 03/06/18 11:08 03/06/18 06:00 Intake and Output: 03/06/18 03/06/18 06:59 18:59 Intake Total 1240 Output Total 600 Balance 640 - Medications Medications: Current Medications Amlodipine Besylate (Norvasc) 5 mg PO BID [facility] Last Admin: 03/06/18 11:08 Dose: 5 mg Aspirin (Ecotrin) 81 mg PO DAILY [facility] Last Admin: 03/06/18 11:08 Dose: 81 mg Heparin Sodium (Porcine) (Heparin) 5,000 units SC Q8H [facility]; Protocol Last Admin: 03/06/18 11:18 Dose: 5,000 units Insulin Human Lispro (Humalog Low) 0 units SC ACHS [facility]; Protocol Last Admin: 03/05/18 17:00 Dose: Not Given Losartan Potassium (Cozaar) 25 mg PO DAILY [facility] Last Admin: 03/06/18 11:08 Dose: 25 mg Mupirocin (Bactroban Ointment) 0 gm TOP DAILY [facility] Last Admin: 03/05/18 10:06 Dose: 1 applic Pantoprazole Sodium (Protonix Ec Tab) 20 mg PO 0600,1600 [facility] Last Admin: 03/06/18 05:56 Dose: 20 mg - Labs Labs: 03/06/18 06:15 03/06/18 06:15 PT 14.8 SECONDS (9.4-12.5) H 02/28/18 15:41 INR 1.29 02/28/18 15:41 APTT 34.7 Seconds (25.1-36.5) 02/28/18 15:41 - Additional Findings Additional findings: - Constitutional Appears: Well, Non-toxic. Sitting in chair comfortably. - Head Exam Head Exam: ATRAUMATIC, NORMAL INSPECTION, NORMOCEPHALIC - Eye Exam Eye Exam: EOMI, Normal appearance - ENT Exam ENT Exam: Mucous Membranes Moist - Respiratory Exam Respiratory Exam: Clear to Ausculation Bilateral, NORMAL BREATHING PATTERN - Cardiovascular Exam Cardiovascular Exam: REGULAR RHYTHM, +S1, +S2 - GI/Abdominal Exam GI & Abdominal Exam: Soft, Normal Bowel Sounds. absent: Tenderness - Extremities Exam Extremities Exam: Pedal Edema (left lower extremity). absent: Calf Tenderness, Normal Inspection (left lower leg ), Tenderness - Back Exam Back Exam: NORMAL INSPECTION - Neurological Exam Neurological Exam: Alert, Awake, Oriented x3 - Psychiatric Exam Psychiatric exam: Normal Affect, Normal Mood - Skin Skin Exam: absent: Normal Color Additional comments: gangrenous second phalanx of left foot with ulceration. Erythema and swelling of lower left leg. Assessment and Plan - Assessment and Plan (Free Text) Assessment: 82 y/o M with PMHx of peripheral artery disease, chronic LLE cellulitis, COPD, hypertension, dementia, obesity presents to [facility] with complaints of LLE anterior tibial region cellulitis and gangrenous L foot 2nd distal phalanx. OM confirmed on MRI 03/04. 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 Almendarez - recalonso appreciated regarding possible amputation - ID on consult - Dr. Wylie recs appreciated - Ceftaroline day# 6 as per ID (CrCl >55; can continue with current abx dose). Will f/u podiatry recs which will determine length of ABx course - L foot xray: no signs of osteomyelitis, cellulitis present - Foot MRI 03/04 Marrow edema in 2nd proximal and middle phalanx consistent with osteo - Wound culture: MRSA+ - Final blood culture shows no growth after 5 days - Procalcitonin 0.07 Hx of Hypertension -Continue amlodipine and losartan IVF discontinued, so will continue to monitor response to BP Hx of Pre-diabetes - HgA1C 6.2 - Diabetes prevention and diet education - ISS-low DVT/GI PPx: - Heparin 5000 q8 - Protonix Dispo: f/u podiatry recs for possible OR amputation of 2nd digit F/u PT eval for strengthening Patient seen, case reviewed and plan approved by Dr. Lao. Sincere Aparicio, PGY-1 <Yousif Lao - Last Filed: 03/10/18 18:34> Objective - Vital Signs/Intake and Output Vital Signs (last 24 hours): Temp Pulse Resp BP Pulse Ox 97.8 F 43 L 18 144/46 L 96 03/10/18 07:00 03/10/18 17:33 03/10/18 07:00 03/10/18 17:33 03/10/18 07:00 Intake and Output: 03/10/18 03/10/18 06:59 18:59 Intake Total 570 Output Total 400 Balance 170 - Medications Medications: Current Medications Acetaminophen (Tylenol 325mg Tab) 650 mg PO Q4H PRN PRN Reason: Pain, Mild (1-3) Amlodipine Besylate (Norvasc) 5 mg PO BID [facility] Last Admin: 03/10/18 17:33 Dose: Not Given Heparin Sodium (Porcine) (Heparin) 5,000 units SC Q8H [facility]; Protocol Last Admin: 03/10/18 17:22 Dose: 5,000 units Ceftaroline Fosamil 600 mg/ (Sodium Chloride) 100 mls @ 100 mls/hr IVPB Q12 [facility] Last Admin: 03/10/18 09:42 Dose: 100 mls/hr Insulin Human Lispro (Humalog Low) 0 units SC ACHS [facility]; Protocol Last Admin: 03/10/18 16:57 Dose: Not Given Losartan Potassium (Cozaar) 25 mg PO DAILY [facility] Last Admin: 03/10/18 09:37 Dose: 25 mg Metoclopramide HCl (Reglan) 10 mg IV ONCE PRN PRN Reason: Nausea/Vomiting Ondansetron HCl (Zofran Inj) 4 mg IVP ONCE PRN PRN Reason: Nausea/Vomiting Oxycodone/Acetaminophen (Percocet 5/325 Mg Tab) 1 tab PO Q4H PRN PRN Reason: Pain, moderate (4-7) Stop: 03/11/18 08:45 Oxycodone/Acetaminophen (Percocet 5/325 Mg Tab) 2 tab PO Q4H PRN PRN Reason: Pain, severe (8-10) Stop: 03/11/18 08:45 Last Admin: 03/08/18 16:48 Dose: 2 tab Pantoprazole Sodium (Protonix Ec Tab) 20 mg PO 0600,1600 [facility] Last Admin: 03/10/18 17:23 Dose: 20 mg - Labs Labs: 03/10/18 10:00 03/09/18 06:30 PT 14.8 SECONDS (9.4-12.5) H 02/28/18 15:41 INR 1.29 02/28/18 15:41 APTT 34.7 Seconds (25.1-36.5) 02/28/18 15:41 Attending/Attestation - Attestation I have personally seen and examined this patient.: Yes I have fully participated in the care of the patient.: Yes I have reviewed all pertinent clinical information, including history, physical exam and plan: Yes Notes (Text): 03/10/18 18:34 Medical record note made by the resident after discussion with my direction and input after the patient was personally seen and examined by me. I have reviewed the chart and agree that the record accurately reflects by personal performance of the history, physical exam, data review, and medical decision-making, in the course for the patient. I have also personally directed the plan of care.
[2018-03-06] MEDS: Insulin Lispro (humaLOG) LOW Coverage SC SCH ×4 (13:28→22:22)
[2018-03-06] MEDS: Ceftaroline 600 MG in Sodium Chloride 0.9% 100 ML IVPB SCH ×2 (13:32→22:23)
[2018-03-06] MEDS: Mupirocin 2% Ointment 15 GM TUBE TOP SCH (17:26)
--- NOTE | 2018-03-06 19:47 | PN ---
DATE: 03/06/2018 SUBJECTIVE: An 82-year-old diabetic male seen at bedside with his and granddaughter present for an infected left second digit ulceration accompanying osteomyelitis of the proximal phalanx. The patient offers no complaints and has been afebrile. The patient is scheduled for left second digit amputation on . The patient's agrees to have the surgery as the patient does have some dementia and needs 's consent. We will hold his heparin tomorrow. The surgery will be done under local anesthesia with IV sedation. The patient's vital signs reveal temperature of 97.4, pulse rate of 66, blood pressure of 150/61, respiratory rate of 20. LABORATORY FINDINGS: Reveal white count of 7.1, hemoglobin of 11, hematocrit of 34.1, platelet count of 211,000. His ESR is elevated at 76. Most recent microbiology report reveals methicillin-resistant Staph aureus growth on the left second toe ulcer. OBJECTIVE: Weakly palpable pedal pulses noted bilaterally. Temperature gradient is increased on the left foot. Capillary filling time is less than 3 minutes x10. There is noted to be edema and erythema of the left forefoot. The patient is unable to detect 5.07 g monofilament wire testing bilaterally. Left second digit presents with the head of the proximal phalangeal bone exposed. The entire digit is edematous and erythematous with purulent discharge noted at the open PIP joint. There are no signs of underlying abscess formation at this time; however, the toe remains edematous and erythematous. ASSESSMENT: An 82-year-old male seen and evaluated at bedside for osteomyelitis of the left second digit secondary to diabetic toe ulceration. PLAN: The patient was seen and evaluated. Discussed surgery with his who was amenable to have the procedure done. Wound was cleansed with normal sterile saline and application of Betadine and dry sterile dressing was applied. Vascular immigration consultant was Dr. Bedolla, ordered a consult with Dr. Bedolla for vascular evaluation prior to surgery. The patient is scheduled for surgery to be done with local under monitored anesthetic care/IV sedation. Tentatively planned for the patient to be discharged to CCU after surgery. We will continue with IV antibiotics as per Infectious Disease. Luis Carlos Almendarez DPM MTDD
--- NOTE | 2018-03-07 03:29 | PN ---
DATE: 03/06/2018 SUBJECTIVE: The patient is seen early this morning in room 562, bed 1. No fevers. No chills. No abdominal pain or diarrhea. PHYSICAL EXAMINATION: VITAL SIGNS: The patient's temperature is 98, blood pressure is 120/70, and respiratory rate of . HEENT: Unremarkable. NECK: Supple. LUNGS: Decreased breath sounds. HEART: Normal S1 and S2. ABDOMEN: Soft. LABORATORY DATA: Reveals a white count of 7.1. Hemoglobin is noted. Chemistries are reviewed. Creatinine is 1.4. Microbiology reveals MRSA from the toe, blood cultures are negative. Review of orders revealed the patient is on Teflaro. ASSESSMENT AND PLAN: This is an 82-year-old male with left leg and foot cellulitis and second toe gangrene with methicillin-resistant Staphylococcus aureus, history of group G Streptococcus bacteremia, skin and skin-like structure infection, coronary artery disease, chronic renal failure and dementia, on Teflaro. MRI is consistent with osteomyelitis. He was given a verbal report of that, unable to find the MRI. The patient awaiting for decision on the surgical and podiatric approach. We will follow with you. Continue the Teflaro. Wally Wylie MD
[2018-03-07] MEDS: Pantoprazole 20 mg EC Tab PO SCH ×2 (05:58→16:31)
[2018-03-07 07:09] LABS: MEAN CELL VOLUME 82.2 fl (80.0-105.0); MEAN CORPUSCULAR HEMOGLOBIN 26.5 pg (25.0-35.0); MEAN CORPUSCULAR HGB CONC 32.3 g/dl (31.0-37.0); MEAN PLATELET VOLUME 8.4 fl (7.0-11.0); RBC 4.15 10^6/uL (3.5-6.1); RED CELL DISTRIBUTION WIDTH 13.3 % (11.5-14.5); WHITE BLOOD COUNT 8.1 10^3/uL (4.5-11.0)
[2018-03-07] MEDS: Insulin Lispro (humaLOG) LOW Coverage SC SCH ×4 (08:00→22:35)
--- NOTE | 2018-03-07 08:55 | CP.PCM.PN ---
<Sincere Aparicio - Last Filed: 03/07/18 12:53> Subjective - Date & Time of Evaluation Date of Evaluation: 03/07/18 Time of Evaluation: 07:40 - Subjective Subjective: Sincere Aparicio PGY-1 Progress Note for Hospitalist Service Patient seen and evaluated at bedside. No acute events reported overnight. Denies chest pain, shortness of breath, palpitations but reports some distal L foot pain. Patient L foot wrapped. Some dried blood evident. Patient notified of plan to go for amputation tomorrow per Podiatry. Patient and were notified yesterday. Objective - Vital Signs/Intake and Output Vital Signs (last 24 hours): Temp Pulse Resp BP Pulse Ox 98 F 60 20 120/65 97 03/07/18 06:00 03/07/18 06:00 03/07/18 06:00 03/07/18 06:00 03/07/18 06:00 Intake and Output: 03/07/18 03/07/18 06:59 18:59 Intake Total 620 Output Total 300 Balance 320 - Medications Medications: Current Medications Amlodipine Besylate (Norvasc) 5 mg PO BID [facility] Last Admin: 03/06/18 17:03 Dose: 5 mg Heparin Sodium (Porcine) (Heparin) 5,000 units SC Q8H [facility]; Protocol Last Admin: 03/07/18 03:00 Dose: Not Given Ceftaroline Fosamil 600 mg/ (Sodium Chloride) 100 mls @ 100 mls/hr IVPB Q12 [facility] Last Admin: 03/06/18 22:23 Dose: 100 mls/hr Insulin Human Lispro (Humalog Low) 0 units SC ACHS [facility]; Protocol Last Admin: 03/06/18 22:22 Dose: Not Given Losartan Potassium (Cozaar) 25 mg PO DAILY [facility] Last Admin: 03/07/18 05:58 Dose: 25 mg Mupirocin (Bactroban Ointment) 0 gm TOP DAILY [facility] Last Admin: 03/06/18 17:26 Dose: 1 applic Pantoprazole Sodium (Protonix Ec Tab) 20 mg PO 0600,1600 [facility] Last Admin: 03/07/18 05:58 Dose: 20 mg - Labs Labs: 03/07/18 05:40 03/07/18 05:40 PT 14.8 SECONDS (9.4-12.5) H 02/28/18 15:41 INR 1.29 02/28/18 15:41 APTT 34.7 Seconds (25.1-36.5) 02/28/18 15:41 - Additional Findings Additional findings: - Constitutional Appears: Well, Non-toxic. Sitting in chair comfortably. - Head Exam Head Exam: ATRAUMATIC, NORMAL INSPECTION, NORMOCEPHALIC - Eye Exam Eye Exam: EOMI, Normal appearance - ENT Exam ENT Exam: Mucous Membranes Moist - Respiratory Exam Respiratory Exam: Clear to Ausculation Bilateral, NORMAL BREATHING PATTERN - Cardiovascular Exam Cardiovascular Exam: REGULAR RHYTHM, +S1, +S2 - GI/Abdominal Exam GI & Abdominal Exam: Soft, Normal Bowel Sounds. absent: Tenderness - Extremities Exam Extremities Exam: Pedal Edema (left lower extremity). absent: Calf Tenderness, Normal Inspection (left lower leg ), Tenderness - Back Exam Back Exam: NORMAL INSPECTION - Neurological Exam Neurological Exam: Alert, Awake, Oriented x3 - Psychiatric Exam Psychiatric exam: Normal Affect, Normal Mood - Skin Skin Exam: absent: Normal Color Additional comments: gangrenous second phalanx of left foot with ulceration. Erythema and swelling of lower left leg. Assessment and Plan - Assessment and Plan (Free Text) Assessment: 82 y/o M with PMHx of peripheral artery disease, chronic LLE cellulitis, COPD, hypertension, dementia, obesity presents to [facility] with complaints of LLE anterior tibial region cellulitis and gangrenous L foot 2nd distal phalanx. OM confirmed on MRI 03/04. Set for amputation tomorrow AM. 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 Almendarez - amputation scheduled for 03/08 AM - ID on consult - Dr. Wylie recs appreciated - Ceftaroline day# 7 as per ID (CrCl >55; can continue with current abx dose). Will f/u podiatry recs which will determine length of ABx course - L foot xray: no signs of osteomyelitis, cellulitis present - Foot MRI 03/04 Marrow edema in 2nd proximal and middle phalanx consistent with osteo - Wound culture: MRSA+ - Final blood culture shows no growth after 5 days - Procalcitonin 0.07 Hx of Hypertension -Continue amlodipine and losartan IVF discontinued, so will continue to monitor response to BP Hx of Pre-diabetes - HgA1C 6.2 - Diabetes prevention and diet education - ISS-low DVT/GI PPx: - Heparin 5000 q8 - Protonix Dispo: SW - ? TCU then home vs [facility] F/u PT eval for strengthening Patient seen, case reviewed and plan approved by Dr. Lao. Sincere Aparicio, PGY-1 <Yousif Lao - Last Filed: 03/10/18 18:34> Objective - Vital Signs/Intake and Output Vital Signs (last 24 hours): Temp Pulse Resp BP Pulse Ox 97.8 F 43 L 18 144/46 L 96 03/10/18 07:00 03/10/18 17:33 03/10/18 07:00 03/10/18 17:33 03/10/18 07:00 Intake and Output: 03/10/18 03/10/18 06:59 18:59 Intake Total 570 Output Total 400 Balance 170 - Medications Medications: Current Medications Acetaminophen (Tylenol 325mg Tab) 650 mg PO Q4H PRN PRN Reason: Pain, Mild (1-3) Amlodipine Besylate (Norvasc) 5 mg PO BID [facility] Last Admin: 03/10/18 17:33 Dose: Not Given Heparin Sodium (Porcine) (Heparin) 5,000 units SC Q8H [facility]; Protocol Last Admin: 03/10/18 17:22 Dose: 5,000 units Ceftaroline Fosamil 600 mg/ (Sodium Chloride) 100 mls @ 100 mls/hr IVPB Q12 [facility] Last Admin: 03/10/18 09:42 Dose: 100 mls/hr Insulin Human Lispro (Humalog Low) 0 units SC ACHS [facility]; Protocol Last Admin: 03/10/18 16:57 Dose: Not Given Losartan Potassium (Cozaar) 25 mg PO DAILY [facility] Last Admin: 03/10/18 09:37 Dose: 25 mg Metoclopramide HCl (Reglan) 10 mg IV ONCE PRN PRN Reason: Nausea/Vomiting Ondansetron HCl (Zofran Inj) 4 mg IVP ONCE PRN PRN Reason: Nausea/Vomiting Oxycodone/Acetaminophen (Percocet 5/325 Mg Tab) 1 tab PO Q4H PRN PRN Reason: Pain, moderate (4-7) Stop: 03/11/18 08:45 Oxycodone/Acetaminophen (Percocet 5/325 Mg Tab) 2 tab PO Q4H PRN PRN Reason: Pain, severe (8-10) Stop: 03/11/18 08:45 Last Admin: 03/08/18 16:48 Dose: 2 tab Pantoprazole Sodium (Protonix Ec Tab) 20 mg PO 0600,1600 [facility] Last Admin: 03/10/18 17:23 Dose: 20 mg - Labs Labs: 03/10/18 10:00 03/09/18 06:30 PT 14.8 SECONDS (9.4-12.5) H 02/28/18 15:41 INR 1.29 02/28/18 15:41 APTT 34.7 Seconds (25.1-36.5) 02/28/18 15:41 Attending/Attestation - Attestation I have personally seen and examined this patient.: Yes I have fully participated in the care of the patient.: Yes I have reviewed all pertinent clinical information, including history, physical exam and plan: Yes Notes (Text): 03/10/18 18:34 Medical record note made by the resident after discussion with my direction and input after the patient was personally seen and examined by me. I have reviewed the chart and agree that the record accurately reflects by personal performance of the history, physical exam, data review, and medical decision-making, in the course for the patient. I have also personally directed the plan of care.
[2018-03-07] MEDS: Ceftaroline 600 MG in Sodium Chloride 0.9% 100 ML IVPB SCH ×2 (10:55→22:35)
[2018-03-07] MEDS: Mupirocin 2% Ointment 15 GM TUBE TOP SCH (11:30)
--- NOTE | 2018-03-07 14:58 | CP.PCM.PN ---
<RaviGraham - Last Filed: 03/07/18 14:55> Subjective - Date & Time of Evaluation Date of Evaluation: 03/07/18 Time of Evaluation: 14:55 - Subjective Subjective: Podiatry progress note for Dr. Hay 82 y/o male patient was seen and evaluated at bedside for infected left 2nd digit ulceration with left foot cellulitis. Patient's is present at bedside. Patient is seen resting comfortably in bed. Patient denies any other pedal complaint at this time. Patient is aware he will require surgery for the 2nd digit left foot, and that it is scheduled for tomorrow 03/08/18. He denies any F/N/V/C or SOB. Objective - Vital Signs/Intake and Output Vital Signs (last 24 hours): Temp Pulse Resp BP Pulse Ox 98 F 60 20 132/64 97 03/07/18 06:00 03/07/18 06:00 03/07/18 06:00 03/07/18 10:54 03/07/18 06:00 Intake and Output: 03/07/18 03/07/18 06:59 18:59 Intake Total 620 Output Total 300 Balance 320 - Medications Medications: Current Medications Amlodipine Besylate (Norvasc) 5 mg PO BID [facility] Last Admin: 03/07/18 10:54 Dose: 5 mg Heparin Sodium (Porcine) (Heparin) 5,000 units SC Q8H [facility]; Protocol Last Admin: 03/07/18 12:15 Dose: 5,000 units Ceftaroline Fosamil 600 mg/ (Sodium Chloride) 100 mls @ 100 mls/hr IVPB Q12 [facility] Last Admin: 03/07/18 10:55 Dose: 100 mls/hr Insulin Human Lispro (Humalog Low) 0 units SC ACHS [facility]; Protocol Last Admin: 03/07/18 12:30 Dose: 2 unit Losartan Potassium (Cozaar) 25 mg PO DAILY [facility] Last Admin: 03/07/18 10:54 Dose: 25 mg Mupirocin (Bactroban Ointment) 0 gm TOP DAILY [facility] Last Admin: 03/07/18 11:30 Dose: 1 applic Pantoprazole Sodium (Protonix Ec Tab) 20 mg PO 0600,1600 [facility] Last Admin: 03/07/18 05:58 Dose: 20 mg - Labs Labs: 03/07/18 05:40 03/07/18 05:40 PT 14.8 SECONDS (9.4-12.5) H 02/28/18 15:41 INR 1.29 02/28/18 15:41 APTT 34.7 Seconds (25.1-36.5) 02/28/18 15:41 - Constitutional Appears: Well, Non-toxic, No Acute Distress - Head Exam Head Exam: ATRAUMATIC, NORMOCEPHALIC - Extremities Exam Additional comments: Bilateral lower extremities exam VASC: faintly palpable pedal pulses bilaterally, Temp gradient warm to cool in the right side and 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 Cap refill < 3 sec to all digits. Erythema noted to the left midfoot, improving. Moderate non pitting edema noted to the left foot. NEURO: Gross and protective sensations are grossly diminished DERM: Left 2nd toe ulceration measuring 3 X 3 X 0.3cm, positive purulent drainage, positive malodor, Positive probe to bone, No tracking or undermining, Positive clinical signs of active infection MSK: no pain on palpation of foot or legs bilaterally. Muscle power intact 5/5 to all groups b/l. - Neurological Exam Neurological Exam: Alert, Awake, Oriented x3 - Psychiatric Exam Psychiatric exam: Normal Affect, Normal Mood Assessment and Plan - Assessment and Plan (Free Text) Assessment: 82 y/o M patient seen and evaluated in the bedside for infected left 2nd digit ulceration Plan: Patient seen and evaluated in the bedside with Dr. Hay Plan discussed with attending Wound Culture: MRSA Wound cleansed with saline and dressed with betadine, gauze and kerlix X-rays left foot: No osteomyelitis, soft tissue swelling WALKER/PVR: Possible left tibial occlusive disease otherwise normal WALKER LLE venous duplex: no evidence of DVT MRI Left Foot- osteomyelitis noted of the left 2nd digit Discussed with patient the surgical option amputation of left 2nd digit, all risks benefits and complications discussed Patient and family agreeable to amputation of the left 2nd digit Patient scheduled for the OR for 03/08/18 for 7:30 AM Consent was obtained, signed by spouse, and witnessed by nurse- consent placed in patient's chart Podiatry will continue to follow up the patient while in house <Megan Hay - Last Filed: 03/08/18 07:47> Objective - Vital Signs/Intake and Output Vital Signs (last 24 hours): Temp Pulse Resp BP Pulse Ox 97.6 F 53 L 18 149/66 94 L 03/08/18 06:50 03/08/18 06:50 03/08/18 06:50 03/08/18 06:50 03/08/18 06:50 Intake and Output: 03/08/18 03/08/18 06:59 18:59 Intake Total 540 Output Total 200 Balance 340 - Medications Medications: Current Medications Amlodipine Besylate (Norvasc) 5 mg PO BID [facility] Last Admin: 03/07/18 18:22 Dose: 5 mg Heparin Sodium (Porcine) (Heparin) 5,000 units SC Q8H [facility]; Protocol Last Admin: 03/07/18 12:15 Dose: 5,000 units Ceftaroline Fosamil 600 mg/ (Sodium Chloride) 100 mls @ 100 mls/hr IVPB Q12 [facility] Last Admin: 03/07/18 22:35 Dose: 100 mls/hr Insulin Human Lispro (Humalog Low) 0 units SC ACHS [facility]; Protocol Last Admin: 03/07/18 22:35 Dose: Not Given Losartan Potassium (Cozaar) 25 mg PO DAILY [facility] Last Admin: 03/07/18 10:54 Dose: 25 mg Mupirocin (Bactroban Ointment) 0 gm TOP DAILY [facility] Last Admin: 03/07/18 11:30 Dose: 1 applic Pantoprazole Sodium (Protonix Ec Tab) 20 mg PO 0600,1600 [facility] Last Admin: 03/08/18 06:15 Dose: Not Given - Labs Labs: 03/07/18 05:40 03/07/18 05:40 PT 14.8 SECONDS (9.4-12.5) H 02/28/18 15:41 INR 1.29 02/28/18 15:41 APTT 34.7 Seconds (25.1-36.5) 02/28/18 15:41 Attending/Attestation - Attestation I have personally seen and examined this patient.: Yes I have fully participated in the care of the patient.: Yes I have reviewed all pertinent clinical information, including history, physical exam and plan: Yes Notes (Text): 03/08/18 07:47 pt going for digital amputation with Dr Almendarez in am
--- NOTE | 2018-03-07 15:57 | CP.PCM.PN ---
Subjective - Date & Time of Evaluation Date of Evaluation: 03/07/18 Time of Evaluation: 08:35 - Subjective Subjective: No increase in left foot pain, no fevers. Objective - Vital Signs/Intake and Output Vital Signs (last 24 hours): Temp Pulse Resp BP Pulse Ox 98 F 60 20 120/65 97 03/07/18 06:00 03/07/18 06:00 03/07/18 06:00 03/07/18 06:00 03/07/18 06:00 Intake and Output: 03/07/18 03/07/18 06:59 18:59 Intake Total 620 Output Total 300 Balance 320 - Medications Medications: Current Medications Amlodipine Besylate (Norvasc) 5 mg PO BID [facility] Last Admin: 03/06/18 17:03 Dose: 5 mg Heparin Sodium (Porcine) (Heparin) 5,000 units SC Q8H [facility]; Protocol Last Admin: 03/07/18 03:00 Dose: Not Given Ceftaroline Fosamil 600 mg/ (Sodium Chloride) 100 mls @ 100 mls/hr IVPB Q12 [facility] Last Admin: 03/06/18 22:23 Dose: 100 mls/hr Insulin Human Lispro (Humalog Low) 0 units SC ACHS [facility]; Protocol Last Admin: 03/06/18 22:22 Dose: Not Given Losartan Potassium (Cozaar) 25 mg PO DAILY [facility] Last Admin: 03/07/18 05:58 Dose: 25 mg Mupirocin (Bactroban Ointment) 0 gm TOP DAILY [facility] Last Admin: 03/06/18 17:26 Dose: 1 applic Pantoprazole Sodium (Protonix Ec Tab) 20 mg PO 0600,1600 [facility] Last Admin: 03/07/18 05:58 Dose: 20 mg - Labs Labs: 03/07/18 05:40 03/07/18 05:40 PT 14.8 SECONDS (9.4-12.5) H 02/28/18 15:41 INR 1.29 02/28/18 15:41 APTT 34.7 Seconds (25.1-36.5) 02/28/18 15:41 - Constitutional Appears: Chronically Ill - Head Exam Head Exam: NORMAL INSPECTION - Respiratory Exam Respiratory Exam: Decreased Breath Sounds - Cardiovascular Exam Cardiovascular Exam: +S1, +S2 - GI/Abdominal Exam GI & Abdominal Exam: Soft. absent: Tenderness - Extremities Exam Additional comments: left foot with dressings in place Assessment and Plan - Assessment and Plan (Free Text) Plan: Assessment left leg and foot cellulitis and 2nd toe gangrene, consider osteomyelitis with MRSA history of Group G strep bacteremia, probably secondary to bilateral lower extremities skin and skin structure infection; history of rhabdomyolysis CAD HTN chronic renal failure dementia obesity with BMI 32 Plan continue Teflaro pending further Podiatry plans, vascular studies; MRI of the lower extremity apparently showed osteomyelitis -for procedure tomorrow will continue to monitor clinically
--- NOTE | 2018-03-07 17:10 | MRI ---
Date of service: 03/04/2018 PROCEDURE: MRI of the left foot without contrast HISTORY: Rule out osteomyelitis of the 2nd toe COMPARISON: Plain films 02/28/2018 TECHNIQUE: MRI of the left foot was performed in multiple planes using multiple pulse sequences. FINDINGS: There is marrow edema in the 2nd proximal and middle phalanx consistent with osteomyelitis. The remaining toes and metatarsals are unremarkable. IMPRESSION: Marrow edema in the 2nd proximal and middle phalanx consistent with osteomyelitis
[2018-03-08] MEDS: Pantoprazole 20 mg EC Tab PO SCH ×2 (06:15→15:41)
[2018-03-08] MEDS ORDERED: Lidocaine 2% Inj (20ml) ONE (07:19)
[2018-03-08] MEDS ORDERED: Bupivacaine 0.5% 50 ML IJ ONE (07:29)
[2018-03-08] MEDS ORDERED: Etomidate 20 mg/10ml Inj IV ONE (07:32)
[2018-03-08] MEDS ORDERED: Propofol 10 mg/ml Inj (20 ML) ONE (07:33)
[2018-03-08] MEDS ORDERED: Lidocaine 1% Inj (20ml) ONE (07:34)
--- NOTE | 2018-03-08 08:22 | CP.PCM.PN ---
<Sincere Aparicio - Last Filed: 03/08/18 14:07> Subjective - Date & Time of Evaluation Date of Evaluation: 03/08/18 Time of Evaluation: 07:18 - Subjective Subjective: Sincere Aparicio PGY-1 Progress Note for Hospitalist Service Patient seen and evaluated at bedside. No acute events reported overnight per nursing. Patient returned from OR and reports tolerating procedure well. Spoke with patient regarding next steps depending on margins of path report and possible need for 3 more weeks of antibiotics. Patient reports L foot achiness but denies chest pain, shortness of breath, abdominal pain, and calf pain. Objective - Vital Signs/Intake and Output Vital Signs (last 24 hours): Temp Pulse Resp BP Pulse Ox 97.6 F 53 L 18 149/66 94 L 03/08/18 06:50 03/08/18 06:50 03/08/18 06:50 03/08/18 06:50 03/08/18 06:50 Intake and Output: 03/08/18 03/08/18 06:59 18:59 Intake Total 540 0 Output Total 200 Balance 340 0 - Medications Medications: Current Medications Amlodipine Besylate (Norvasc) 5 mg PO BID [facility] Last Admin: 03/07/18 18:22 Dose: 5 mg Heparin Sodium (Porcine) (Heparin) 5,000 units SC Q8H [facility]; Protocol Last Admin: 03/07/18 12:15 Dose: 5,000 units Ceftaroline Fosamil 600 mg/ (Sodium Chloride) 100 mls @ 100 mls/hr IVPB Q12 [facility] Last Admin: 03/07/18 22:35 Dose: 100 mls/hr Insulin Human Lispro (Humalog Low) 0 units SC ACHS [facility]; Protocol Last Admin: 03/07/18 22:35 Dose: Not Given Losartan Potassium (Cozaar) 25 mg PO DAILY [facility] Last Admin: 03/07/18 10:54 Dose: 25 mg Mupirocin (Bactroban Ointment) 0 gm TOP DAILY [facility] Last Admin: 03/07/18 11:30 Dose: 1 applic Pantoprazole Sodium (Protonix Ec Tab) 20 mg PO 0600,1600 [facility] Last Admin: 03/08/18 06:15 Dose: Not Given - Labs Labs: 03/07/18 05:40 03/07/18 05:40 PT 14.8 SECONDS (9.4-12.5) H 02/28/18 15:41 INR 1.29 02/28/18 15:41 APTT 34.7 Seconds (25.1-36.5) 02/28/18 15:41 - Additional Findings Additional findings: - Constitutional Appears: Well, Non-toxic. Sitting in chair comfortably. - Head Exam Head Exam: ATRAUMATIC, NORMAL INSPECTION, NORMOCEPHALIC - Eye Exam Eye Exam: EOMI, Normal appearance - ENT Exam ENT Exam: Mucous Membranes Moist - Respiratory Exam Respiratory Exam: Clear to Ausculation Bilateral, NORMAL BREATHING PATTERN - Cardiovascular Exam Cardiovascular Exam: REGULAR RHYTHM, +S1, +S2 - GI/Abdominal Exam GI & Abdominal Exam: Soft, Normal Bowel Sounds. absent: Tenderness - Extremities Exam Extremities Exam: Pedal Edema (left lower extremity). absent: Calf Tenderness, Normal Inspection (left lower leg ), Tenderness - Back Exam Back Exam: NORMAL INSPECTION - Neurological Exam Neurological Exam: Alert, Awake, Oriented x3 - Psychiatric Exam Psychiatric exam: Normal Affect, Normal Mood - Skin Skin Exam: absent: Normal Color Additional comments: amputated second metatarsal head of left foot - dressings c/d/i Assessment and Plan - Assessment and Plan (Free Text) Assessment: 82 y/o M with PMHx of peripheral artery disease, chronic LLE cellulitis, COPD, hypertension, dementia, obesity presents to [facility] with complaints of LLE anterior tibial region cellulitis and gangrenous L foot 2nd distal phalanx. OM confirmed on MRI 03/04. Amputation of second digit this AM. 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 Almendarez - amputated second metatarsal head of left foot - ID on consult - Dr. Wylie recs appreciated s/p amputation depending on path and cultures - Ceftaroline day# 8 as per ID (CrCl >55; can continue with current abx dose). Will f/u podiatry recs which will determine length of ABx course - L foot xray: no signs of osteomyelitis, cellulitis present - Foot MRI 03/04 Marrow edema in 2nd proximal and middle phalanx consistent with osteo - Wound culture: MRSA+ - Final blood culture shows no growth after 5 days - Procalcitonin 0.07 Hx of Hypertension -Continue amlodipine and losartan IVF discontinued, so will continue to monitor response to BP Hx of Pre-diabetes - HgA1C 6.2 - Diabetes prevention and diet education - ISS-low DVT/GI PPx: - Heparin 5000 q8 - Protonix Dispo: SW - sw spoke with patient's in room. reviewed sub acute rehab [facility] mmendation. indicated that [facility] is her first choice followed by [facility]. F/u PT eval for strengthening Patient seen, case reviewed and plan approved by Dr. Lao. Sincere Aparicio, PGY-1 <Yousif Lao - Last Filed: 03/10/18 18:33> Objective - Vital Signs/Intake and Output Vital Signs (last 24 hours): Temp Pulse Resp BP Pulse Ox 97.8 F 43 L 18 144/46 L 96 03/10/18 07:00 03/10/18 17:33 03/10/18 07:00 03/10/18 17:33 03/10/18 07:00 Intake and Output: 03/10/18 03/10/18 06:59 18:59 Intake Total 570 Output Total 400 Balance 170 - Medications Medications: Current Medications Acetaminophen (Tylenol 325mg Tab) 650 mg PO Q4H PRN PRN Reason: Pain, Mild (1-3) Amlodipine Besylate (Norvasc) 5 mg PO BID [facility] Last Admin: 03/10/18 17:33 Dose: Not Given Heparin Sodium (Porcine) (Heparin) 5,000 units SC Q8H [facility]; Protocol Last Admin: 03/10/18 17:22 Dose: 5,000 units Ceftaroline Fosamil 600 mg/ (Sodium Chloride) 100 mls @ 100 mls/hr IVPB Q12 [facility] Last Admin: 03/10/18 09:42 Dose: 100 mls/hr Insulin Human Lispro (Humalog Low) 0 units SC ACHS [facility]; Protocol Last Admin: 03/10/18 16:57 Dose: Not Given Losartan Potassium (Cozaar) 25 mg PO DAILY [facility] Last Admin: 03/10/18 09:37 Dose: 25 mg Metoclopramide HCl (Reglan) 10 mg IV ONCE PRN PRN Reason: Nausea/Vomiting Ondansetron HCl (Zofran Inj) 4 mg IVP ONCE PRN PRN Reason: Nausea/Vomiting Oxycodone/Acetaminophen (Percocet 5/325 Mg Tab) 1 tab PO Q4H PRN PRN Reason: Pain, moderate (4-7) Stop: 03/11/18 08:45 Oxycodone/Acetaminophen (Percocet 5/325 Mg Tab) 2 tab PO Q4H PRN PRN Reason: Pain, severe (8-10) Stop: 03/11/18 08:45 Last Admin: 03/08/18 16:48 Dose: 2 tab Pantoprazole Sodium (Protonix Ec Tab) 20 mg PO 0600,1600 [facility] Last Admin: 03/10/18 17:23 Dose: 20 mg - Labs Labs: 03/10/18 10:00 03/09/18 06:30 PT 14.8 SECONDS (9.4-12.5) H 02/28/18 15:41 INR 1.29 02/28/18 15:41 APTT 34.7 Seconds (25.1-36.5) 02/28/18 15:41 Attending/Attestation - Attestation I have personally seen and examined this patient.: Yes I have fully participated in the care of the patient.: Yes I have reviewed all pertinent clinical information, including history, physical exam and plan: Yes Notes (Text): 03/10/18 18:33 Medical record note made by the resident after discussion with my direction and input after the patient was personally seen and examined by me. I have reviewed the chart and agree that the record accurately reflects by personal performance of the history, physical exam, data review, and medical decision-making, in the course for the patient. I have also personally directed the plan of care.
[2018-03-08] MEDS ORDERED: Oxycodone/Acetaminophen 5/325 mg Tab PO PRN ×2 (08:44)
--- NOTE | 2018-03-08 08:48 | PCM.SURG1 ---
Surgeon's Initial Post Op Note - Surgeon's Notes Surgeon: Dr. Almendarez, DPM Vascular Physician: Dr. Graham Rodrigues, PGY1 Type of Anesthesia: IV Sedation, Local Anesthesia Administered By: Dr. Justin Pre-Operative Diagnosis: Left 2nd digit osteomyelitis Operative Findings: see dictation. I: 15 cc 2% Lidocaine and 0.5% marcaine. M: 3-0 Vicryl, 4-0 Nylon Post-Operative Diagnosis: same Operation Performed: Left 2nd digit amputation with resection of the 2nd metatarsal head proximal margin Specimen/Specimens Removed: 1) Left 2nd digit- soft tissue and bone. 2) left 2nd metatarsal head- proximal margin. 3) Deep Wound culture Estimated Blood Loss: EBL {In ML}: 5 Blood Products Given: N/A Drains Used: No Drains Post-Op Condition: Good Date of Surgery/Procedure: 03/08/18 Time of Surgery/Procedure: 08:48
--- NOTE | 2018-03-08 09:27 | RAD ---
Date of service: 03/08/2018 PROCEDURE: Left Foot Radiographs. HISTORY: s/p left 2nd digit amputation COMPARISON: Left foot radiographs 02/28/2018. FINDINGS: BONES: Interval 2nd digit amputation is appreciated with osteotomy questioned at the head of the 2nd metatarsal bone with distal fragments remaining in the soft tissues. Examination otherwise stable including extensive degenerative changes throughout the residual digits and remaining forefoot midfoot and hindfoot joints. Calcific density at the plantar foot soft tissues again appreciated laterally. No subluxation or dislocation appreciated throughout. OTHER FINDINGS: None. IMPRESSION: Interval left 2nd digit amputation identified with osteotomy through the head of the 2nd metatarsal bone noted. Bony fragments are identified distal to the 2nd metatarsal bone within soft tissue. Diffuse advanced degenerative joint disease otherwise appreciated throughout the left foot.
[2018-03-08] MEDS: Mupirocin 2% Ointment 15 GM TUBE TOP SCH (10:46)
[2018-03-08] MEDS: Insulin Lispro (humaLOG) LOW Coverage SC SCH ×4 (10:54→21:32)
[2018-03-08] MEDS: Ceftaroline 600 MG in Sodium Chloride 0.9% 100 ML IVPB SCH ×2 (11:05→21:54)
--- NOTE | 2018-03-08 11:32 | PN ---
DATE: 03/08/2018 SUBJECTIVE: The patient is in bed, in no acute distress, nontoxic. He is awake and alert. The patient was seen earlier today in 562, bed 1. No fevers. No chills. PHYSICAL EXAMINATION: VITAL SIGNS: On exam, temperature is 98, blood pressure is 140/60 and respiratory rate of 18. HEENT: Unremarkable. NECK: Supple. LUNGS: Have decreased breath. HEART: Normal S1 and S2. ABDOMEN: Soft and nontender. EXTREMITIES: Examination of toe is noted, still with erythema and gangrenous changes. LABORATORY EXAMINATION: Reveals a white count of 8.1 and hemoglobin of 11. Coagulation is noted. Chemistries reveals a BUN of 23, creatinine of 1.4 and a C-reactive protein is 69.5. Microbiology reveals the patient's blood cultures are negative. There is MRSA, oxacillin resistant staph aureus from the toe. Nares MRSA screen is negative. Urine cultures are negative. ASSESSMENT AND PLAN: This is an 82-year-old, who is admitted with the methicillin-resistant Staphylococcus aureus left foot cellulitis and the methicillin-resistant Staphylococcus aureus second toe gangrene with a history of group G streptococcus bacteremia and coronary artery disease, chronic renal failure, dementia, osteomyelitis probably and the patient is scheduled for the operating room this morning for surgery and the patient is for amputation of the second left toe this morning. The patient did have an MRI of the foot which revealed osteomyelitis of the second toe. Currently on Teflaro. We will follow closely with you. Wally Wylie MD
--- NOTE | 2018-03-08 18:43 | OP ---
PROCEDURE DATE: 03/08/2018 INDICATIONS: An 82-year-old male, had developed a wound secondary to trauma in his house on his left dorsal second digit that penetrated his skin and exposed the head of the proximal phalanx. The patient subsequently developed cellulitis and on further radiographic testing it was determined that he had developed osteomyelitis of the left second digit. The patient was told to go to the emergency room, at which time, he was admitted and undergone IV antibiotics and proper vascular testing but the toe has been deemed non salvageable. The patient has dementia and his signed the consent for amputation of the left second toe. DESCRIPTION OF PROCEDURE: The following is the procedure in detail, the patient was brought into the operating room in his hospital bed and placed on the operating room table in the supine position. Following IV sedation, the patient's foot was scrubbed, prepped, and draped in the usual aseptic manner. Attention was directed at the left second digit, where there was noted to be sausage like in appearance with exposed head of the left second proximal phalanx. The wound and the periphery of the wound appeared necrotic and fibrotic with some slight purulence emanating from the wound. Using a 15 blade, a racquet-type incision was made over the dorsal second metatarsal phalangeal joint and encompassed the second digit. Incision was deepened with care to retract all vital and neurovascular structures. An extensor tenotomy was performed and the entire digit was disarticulated at metatarsophalangeal joint and passed from the operative field in toto. Metatarsal head was exposed. There was noted to be some erosion. At this time, a sagittal saw was used to resect the cartilaginous cap of the left second metatarsal head and was passed from the operative field. Using a bone rasp,the resected metatarsal area was smoothed out and there was found to be no rough edges. Next, utilizing antibiotic infused sterile saline, the wound was flushed with pulse lavage, and the culture was taken and submitted for sensitivities. At this time, there was noted to be active bleeding and the incision site was closed with 4-0 Vicryl in a subcutaneous fashion and using 3-0 nylon the incision site was closed with horizontal and simple suture technique. The foot was then cleansed with normal sterile saline and Betadine-soaked sterile Adaptic was placed over the incision site and a dry sterile dressing consisting of sterile 4x4s, sterile gauze, sterile Kerlix, and Microban compressive dressing was applied. The patient tolerated the procedure well with all vital signs stable and he was transferred from the operating room to the recovery room. After a period of postoperative monitoring, an x-ray was taken in the recovery room and he will be transferred back to his hospital room 562 bed 1. We will hold the heparin for one day and we will resume tomorrow morning. The patient is to remain off weightbearing until further notice, this means no bathroom privileges. He can resume his normal diabetic diet. Luis Carlos Almendarez DPM
[2018-03-09] MEDS: Pantoprazole 20 mg EC Tab PO SCH ×2 (05:43→18:07)
[2018-03-09 07:05] LABS: HEMOGLOBIN 11.1 g/dL (14.0-18.0); MEAN CELL VOLUME 81.4 fl (80.0-105.0); MEAN CORPUSCULAR HEMOGLOBIN 26.8 pg (25.0-35.0); MEAN CORPUSCULAR HGB CONC 32.9 g/dl (31.0-37.0); MEAN PLATELET VOLUME 8.2 fl (7.0-11.0); RBC 4.14 10^6/uL (3.5-6.1); RED CELL DISTRIBUTION WIDTH 13.3 % (11.5-14.5); WHITE BLOOD COUNT 9.3 10^3/uL (4.5-11.0)
[2018-03-09 07:20] LABS: ALBUMIN 3.2 g/dL (3.0-4.8); CALCIUM 8.9 mg/dL (8.4-10.5)
[2018-03-09] MEDS: Insulin Lispro (humaLOG) LOW Coverage SC SCH ×4 (07:30→21:33)
--- NOTE | 2018-03-09 08:10 | CP.PCM.PN ---
<Sincere Aparicio - Last Filed: 03/09/18 15:10> Subjective - Date & Time of Evaluation Date of Evaluation: 03/09/18 Time of Evaluation: 07:30 - Subjective Subjective: Sincere Aparicio PGY-1 Progress Note for Hospitalist Service Patient seen and evaluated at bedside. No acute events reported overnight. Spoke with patient regarding next steps depending on margins of path report and possible need for continued antibiotics. Patient reports resolved L foot achiness but denies chest pain, shortness of breath, abdominal pain, LLE numbnes s, tingling and calf pain. Feels well. Objective - Vital Signs/Intake and Output Vital Signs (last 24 hours): Temp Pulse Resp BP Pulse Ox 97 F L 64 20 193/72 H 98 03/09/18 06:00 03/09/18 06:00 03/09/18 06:00 03/09/18 06:00 03/09/18 06:00 Intake and Output: 03/09/18 03/09/18 06:59 18:59 Intake Total 1380 Output Total 1500 Balance -120 - Medications Medications: Current Medications Acetaminophen (Tylenol 325mg Tab) 650 mg PO Q4H PRN PRN Reason: Pain, Mild (1-3) Amlodipine Besylate (Norvasc) 5 mg PO BID [facility] Last Admin: 03/08/18 19:17 Dose: 5 mg Fentanyl (Fentanyl) 25 mcg IV Q5M PRN PRN Reason: Pain, moderate (4-7) Heparin Sodium (Porcine) (Heparin) 5,000 units SC Q8H [facility]; Protocol Last Admin: 03/07/18 12:15 Dose: 5,000 units Ceftaroline Fosamil 600 mg/ (Sodium Chloride) 100 mls @ 100 mls/hr IVPB Q12 [facility] Last Admin: 03/08/18 21:54 Dose: 100 mls/hr Insulin Human Lispro (Humalog Low) 0 units SC ACHS [facility]; Protocol Last Admin: 03/08/18 21:32 Dose: Not Given Losartan Potassium (Cozaar) 25 mg PO DAILY [facility] Last Admin: 03/08/18 10:52 Dose: 25 mg Metoclopramide HCl (Reglan) 10 mg IV ONCE PRN PRN Reason: Nausea/Vomiting Mupirocin (Bactroban Ointment) 0 gm TOP DAILY [facility] Last Admin: 03/08/18 10:46 Dose: 2 applic Ondansetron HCl (Zofran Inj) 4 mg IVP ONCE PRN PRN Reason: Nausea/Vomiting Oxycodone/Acetaminophen (Percocet 5/325 Mg Tab) 1 tab PO Q4H PRN PRN Reason: Pain, moderate (4-7) Stop: 03/11/18 08:45 Oxycodone/Acetaminophen (Percocet 5/325 Mg Tab) 2 tab PO Q4H PRN PRN Reason: Pain, severe (8-10) Stop: 03/11/18 08:45 Last Admin: 03/08/18 16:48 Dose: 2 tab Pantoprazole Sodium (Protonix Ec Tab) 20 mg PO 0600,1600 [facility] Last Admin: 03/09/18 05:43 Dose: 20 mg - Labs Labs: 03/09/18 06:30 03/09/18 06:30 PT 14.8 SECONDS (9.4-12.5) H 02/28/18 15:41 INR 1.29 02/28/18 15:41 APTT 34.7 Seconds (25.1-36.5) 02/28/18 15:41 - Additional Findings Additional findings: - Constitutional Appears: Well, Non-toxic. Sitting in chair comfortably. - Head Exam Head Exam: ATRAUMATIC, NORMAL INSPECTION, NORMOCEPHALIC - Eye Exam Eye Exam: EOMI, Normal appearance - ENT Exam ENT Exam: Mucous Membranes Moist - Respiratory Exam Respiratory Exam: Clear to Ausculation Bilateral, NORMAL BREATHING PATTERN - Cardiovascular Exam Cardiovascular Exam: REGULAR RHYTHM, +S1, +S2 - GI/Abdominal Exam GI & Abdominal Exam: Soft, Normal Bowel Sounds. absent: Tenderness - Extremities Exam Extremities Exam: Pedal Edema (left lower extremity). absent: Calf Tenderness, Normal Inspection (left lower leg ), Tenderness - Back Exam Back Exam: NORMAL INSPECTION - Neurological Exam Neurological Exam: Alert, Awake, Oriented x3 - Psychiatric Exam Psychiatric exam: Normal Affect, Normal Mood - Skin Skin Exam: absent: Normal Color Additional comments: amputated second metatarsal head of left foot - dressings c/d/i Assessment and Plan - Assessment and Plan (Free Text) Assessment: 82 y/o M with PMHx of peripheral artery disease, chronic LLE cellulitis, COPD, hypertension, dementia, obesity presents to [facility] with complaints of LLE anterior tibial region cellulitis and gangrenous L foot 2nd distal phalanx. OM confirmed on MRI 03/04. Amputation of second digit AM 03/07. Currently pain controlled waiting on path and culture results. 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 Almendarez - amputated second metatarsal head of left foot 03/07 - ID on consult - Dr. Wylie recs appreciated s/p amputation depending on path and cultures - Ceftaroline day# 9 as per ID (CrCl >55; can continue with current abx dose). Will f/u podiatry recs and path margin report which will determine length of ABx course and choice of ABx - L foot xray: no signs of osteomyelitis, cellulitis present - Foot MRI 03/04 Marrow edema in 2nd proximal and middle phalanx consistent with osteo - Wound culture: MRSA+ initially, repeat wound cultures pending - Urine cx negative - Final blood culture shows no growth after 5 days - Procalcitonin 0.07 Hx of Hypertension -Continue amlodipine and losartan IVF discontinued, so will continue to monitor response to BP Hx of Pre-diabetes - HgA1C 6.2 - Diabetes prevention and diet education - ISS-low DVT/GI PPx: - Heparin 5000 q8 - Protonix Dispo: SW - sw spoke with patient's in room. reviewed sub acute rehab recommendation. indicated that [facility] is her first choice followed by [facility]. F/u PT eval for strengthening Patient seen, case reviewed and plan approved by Dr. Lao. Sincere Aparicio, PGY-1 <Yousif Lao - Last Filed: 03/10/18 18:32> Objective - Vital Signs/Intake and Output Vital Signs (last 24 hours): Temp Pulse Resp BP Pulse Ox 97.8 F 43 L 18 144/46 L 96 03/10/18 07:00 03/10/18 17:33 03/10/18 07:00 03/10/18 17:33 03/10/18 07:00 Intake and Output: 03/10/18 03/10/18 06:59 18:59 Intake Total 570 Output Total 400 Balance 170 - Medications Medications: Current Medications Acetaminophen (Tylenol 325mg Tab) 650 mg PO Q4H PRN PRN Reason: Pain, Mild (1-3) Amlodipine Besylate (Norvasc) 5 mg PO BID [facility] Last Admin: 03/10/18 17:33 Dose: Not Given Heparin Sodium (Porcine) (Heparin) 5,000 units SC Q8H [facility]; Protocol Last Admin: 03/10/18 17:22 Dose: 5,000 units Ceftaroline Fosamil 600 mg/ (Sodium Chloride) 100 mls @ 100 mls/hr IVPB Q12 [facility] Last Admin: 03/10/18 09:42 Dose: 100 mls/hr Insulin Human Lispro (Humalog Low) 0 units SC ACHS [facility]; Protocol Last Admin: 03/10/18 16:57 Dose: Not Given Losartan Potassium (Cozaar) 25 mg PO DAILY [facility] Last Admin: 03/10/18 09:37 Dose: 25 mg Metoclopramide HCl (Reglan) 10 mg IV ONCE PRN PRN Reason: Nausea/Vomiting Ondansetron HCl (Zofran Inj) 4 mg IVP ONCE PRN PRN Reason: Nausea/Vomiting Oxycodone/Acetaminophen (Percocet 5/325 Mg Tab) 1 tab PO Q4H PRN PRN Reason: Pain, moderate (4-7) Stop: 03/11/18 08:45 Oxycodone/Acetaminophen (Percocet 5/325 Mg Tab) 2 tab PO Q4H PRN PRN Reason: Pain, severe (8-10) Stop: 03/11/18 08:45 Last Admin: 03/08/18 16:48 Dose: 2 tab Pantoprazole Sodium (Protonix Ec Tab) 20 mg PO 0600,1600 [facility] Last Admin: 03/10/18 17:23 Dose: 20 mg - Labs Labs: 03/10/18 10:00 03/09/18 06:30 PT 14.8 SECONDS (9.4-12.5) H 02/28/18 15:41 INR 1.29 02/28/18 15:41 APTT 34.7 Seconds (25.1-36.5) 02/28/18 15:41 Attending/Attestation - Attestation I have personally seen and examined this patient.: Yes I have fully participated in the care of the patient.: Yes I have reviewed all pertinent clinical information, including history, physical exam and plan: Yes Notes (Text): 03/10/18 18:29 Medical record note made by the resident after discussion with my direction and input after the patient was personally seen and examined by me. I have reviewed the chart and agree that the record accurately reflects by personal performance of the history, physical exam, data review, and medical decision-making, in the course for the patient. I have also personally directed the plan of care. 82 yrs M with PMH of peripheral artery disease, chronic LLE cellulitis, COPD, hypertension, dementia, obesity presents to [facility] with complaints of LLE anterior tibial region cellulitis and gangrenous L foot 2nd distal phalanx. OM confirmed on MRI 03/04. Amputation of second digit AM 03/07. Patient is on IV ceftaroline as per ID. Currently pain controlled waiting on path and culture results.
[2018-03-09] MEDS: Ceftaroline 600 MG in Sodium Chloride 0.9% 100 ML IVPB SCH ×2 (10:51→21:33)
--- NOTE | 2018-03-09 15:50 | PN ---
DATE: 03/09/2018 SUBJECTIVE: An 82-year-old male seen status post day #1 partial left second ray resection secondary to osteomyelitis. The patient is sitting in his chair comfortably watching television. Denies any fever, chills, nausea or vomiting. He reports no pain in his foot and no shortness of breath reported. He has no complaints of posterior left lower leg pain. LABORATORY DATA: Laboratory findings reveal white count of 9.3, hemoglobin of 11.1, hematocrit of 33.7, platelet count of 188. Microbiology report preliminarily taken in the operating room shows no polymorphonuclear white blood cells and no organisms seen. Culture and sensitivities to follow. OBJECTIVE: VITAL SIGNS: Revealed temperature of 97, pulse rate of 49, blood pressure of 145/47, respiratory rate 20. Weakly palpable pedal pulses noted bilaterally. Incision site at the second metatarsophalangeal joint presents with all sutures intact with no signs of dehiscence. The suture line is well coapted. There is noted to be some serous drainage on the bandage; however, there is no active bleeding. The forefoot remains slightly edematous and erythematous postoperatively, but no signs of localized cellulitis or ascending cellulitis. ASSESSMENT: Status post day #1 left partial second ray amputation. PLAN: The patient's foot was examined and cleansed with normal sterile saline, Betadine-soaked sterile Adaptic and a dry sterile dressing was applied. We will order a surgical shoe for the patient to start to ambulate. Will remain off weightbearing at this time; however, recommend transfer to TCU where he can undergo assistance with ambulation given a surgical shoe. The patient will be seen and followed daily. Luis Carlos Almendarez DPM
--- NOTE | 2018-03-09 21:38 | CP.PCM.PN ---
Subjective - Date & Time of Evaluation Date of Evaluation: 03/09/18 Time of Evaluation: 08:50 - Subjective Subjective: No increased pain the left foot, no fevers, no diarrhea, no nausea. Objective - Vital Signs/Intake and Output Vital Signs (last 24 hours): Temp Pulse Resp BP Pulse Ox 97 F L 64 20 193/72 H 98 03/09/18 06:00 03/09/18 06:00 03/09/18 06:00 03/09/18 06:00 03/09/18 06:00 Intake and Output: 03/09/18 03/09/18 06:59 18:59 Intake Total 1380 Output Total 1500 Balance -120 - Medications Medications: Current Medications Acetaminophen (Tylenol 325mg Tab) 650 mg PO Q4H PRN PRN Reason: Pain, Mild (1-3) Amlodipine Besylate (Norvasc) 5 mg PO BID [facility] Last Admin: 03/08/18 19:17 Dose: 5 mg Fentanyl (Fentanyl) 25 mcg IV Q5M PRN PRN Reason: Pain, moderate (4-7) Heparin Sodium (Porcine) (Heparin) 5,000 units SC Q8H [facility]; Protocol Last Admin: 03/07/18 12:15 Dose: 5,000 units Ceftaroline Fosamil 600 mg/ (Sodium Chloride) 100 mls @ 100 mls/hr IVPB Q12 [facility] Last Admin: 03/08/18 21:54 Dose: 100 mls/hr Insulin Human Lispro (Humalog Low) 0 units SC ACHS [facility]; Protocol Last Admin: 03/08/18 21:32 Dose: Not Given Losartan Potassium (Cozaar) 25 mg PO DAILY [facility] Last Admin: 03/08/18 10:52 Dose: 25 mg Metoclopramide HCl (Reglan) 10 mg IV ONCE PRN PRN Reason: Nausea/Vomiting Mupirocin (Bactroban Ointment) 0 gm TOP DAILY [facility] Last Admin: 03/08/18 10:46 Dose: 2 applic Ondansetron HCl (Zofran Inj) 4 mg IVP ONCE PRN PRN Reason: Nausea/Vomiting Oxycodone/Acetaminophen (Percocet 5/325 Mg Tab) 1 tab PO Q4H PRN PRN Reason: Pain, moderate (4-7) Stop: 03/11/18 08:45 Oxycodone/Acetaminophen (Percocet 5/325 Mg Tab) 2 tab PO Q4H PRN PRN Reason: Pain, severe (8-10) Stop: 03/11/18 08:45 Last Admin: 03/08/18 16:48 Dose: 2 tab Pantoprazole Sodium (Protonix Ec Tab) 20 mg PO 0600,1600 [facility] Last Admin: 03/09/18 05:43 Dose: 20 mg - Labs Labs: 03/09/18 06:30 03/09/18 06:30 PT 14.8 SECONDS (9.4-12.5) H 02/28/18 15:41 INR 1.29 02/28/18 15:41 APTT 34.7 Seconds (25.1-36.5) 02/28/18 15:41 - Constitutional Appears: Chronically Ill - Head Exam Head Exam: NORMAL INSPECTION - Neck Exam Neck Exam: absent: Meningismus - Respiratory Exam Respiratory Exam: Decreased Breath Sounds - Cardiovascular Exam Cardiovascular Exam: +S1, +S2 - GI/Abdominal Exam GI & Abdominal Exam: Soft. absent: Tenderness Assessment and Plan - Assessment and Plan (Free Text) Plan: Assessment left leg and foot cellulitis and 2nd toe gangrene, consider osteomyelitis with MRSA S/P amputation POD #1 history of Group G strep bacteremia, probably secondary to bilateral lower extremities skin and skin structure infection; history of rhabdomyolysis CAD HTN chronic renal failure dementia obesity with BMI 32 Plan continue Teflaro pending OR cx and pathology
[2018-03-10] MEDS: Pantoprazole 20 mg EC Tab PO SCH ×2 (06:30→17:23)
[2018-03-10] MEDS: Insulin Lispro (humaLOG) LOW Coverage SC SCH ×4 (07:43→21:25)
--- NOTE | 2018-03-10 09:16 | CP.PCM.PN ---
<Esteban Ge - Last Filed: 03/10/18 09:12> Subjective - Date & Time of Evaluation Date of Evaluation: 03/10/18 Time of Evaluation: 09:13 - Subjective Subjective: Podiatry progress note for Dr. Almendarez 82M seen at bedside with Dr. Almendarez. Resting comfortably. Denies any pain to surgical site. States he is eating and voiding freely. Denies N/V/F/C/SOB/CP and has no other pedal complaints at this time. Objective - Vital Signs/Intake and Output Vital Signs (last 24 hours): Temp Pulse Resp BP Pulse Ox 97.8 F 54 L 18 177/62 H 96 03/10/18 07:00 03/10/18 07:00 03/10/18 07:00 03/10/18 07:00 03/10/18 07:00 Intake and Output: 03/10/18 03/10/18 06:59 18:59 Intake Total 570 Output Total 400 Balance 170 - Medications Medications: Current Medications Acetaminophen (Tylenol 325mg Tab) 650 mg PO Q4H PRN PRN Reason: Pain, Mild (1-3) Amlodipine Besylate (Norvasc) 5 mg PO BID [facility] Last Admin: 03/09/18 18:11 Dose: 5 mg Heparin Sodium (Porcine) (Heparin) 5,000 units SC Q8H [facility]; Protocol Last Admin: 03/09/18 18:06 Dose: 5,000 units Ceftaroline Fosamil 600 mg/ (Sodium Chloride) 100 mls @ 100 mls/hr IVPB Q12 [facility] Last Admin: 03/09/18 21:33 Dose: 100 mls/hr Insulin Human Lispro (Humalog Low) 0 units SC ACHS [facility]; Protocol Last Admin: 03/09/18 21:33 Dose: Not Given Losartan Potassium (Cozaar) 25 mg PO DAILY [facility] Last Admin: 03/09/18 10:50 Dose: 25 mg Metoclopramide HCl (Reglan) 10 mg IV ONCE PRN PRN Reason: Nausea/Vomiting Ondansetron HCl (Zofran Inj) 4 mg IVP ONCE PRN PRN Reason: Nausea/Vomiting Oxycodone/Acetaminophen (Percocet 5/325 Mg Tab) 1 tab PO Q4H PRN PRN Reason: Pain, moderate (4-7) Stop: 03/11/18 08:45 Oxycodone/Acetaminophen (Percocet 5/325 Mg Tab) 2 tab PO Q4H PRN PRN Reason: Pain, severe (8-10) Stop: 03/11/18 08:45 Last Admin: 03/08/18 16:48 Dose: 2 tab Pantoprazole Sodium (Protonix Ec Tab) 20 mg PO 0600,1600 [facility] Last Admin: 03/10/18 06:30 Dose: 20 mg - Labs Labs: 03/09/18 06:30 03/09/18 06:30 PT 14.8 SECONDS (9.4-12.5) H 02/28/18 15:41 INR 1.29 02/28/18 15:41 APTT 34.7 Seconds (25.1-36.5) 02/28/18 15:41 - Constitutional Appears: Well, Non-toxic, No Acute Distress - Head Exam Head Exam: ATRAUMATIC, NORMOCEPHALIC - Extremities Exam Additional comments: Bilateral lower extremities exam VASC: faintly palpable pedal pulses bilaterally, Temp gradient warm to cool in the right side and warm to equine manager the left side. Cap refill < 3 sec to all remaining digits. Erythema noted to the left midfoot, improving. Moderate non pitting edema noted to the left foot. NEURO: Gross and protective sensations are grossly diminished DERM: surgical site incision well coapted, sutures intact, no evidence of pus or purulent drainage, mild serosanguinous drainage noted on dressing, no openings or signs of wound dehiscence, no probing, no clinical signs of infection MSK: no pain on palpation of foot or legs bilaterally. Muscle power intact 5/5 to all groups b/l. - Neurological Exam Neurological Exam: Alert, Awake, Oriented x3 - Psychiatric Exam Psychiatric exam: Normal Affect, Normal Mood Assessment and Plan - Assessment and Plan (Free Text) Assessment: 82M POD 2 left second digit amputation with met head resection Plan: Patient seen and evaluated at bedside with Dr. Almendarez Afebrile, absent leukocytosis Dressing taken down, surgical site cleansed with sterile saline, dressed with betadine, adaptic, DSD, light ARELY Wound cx 03/08 - gram positive cocci Continue medications per ID Postoperative x-ray - normal changes s/p 2nd digit amputation Pathology postop - pending, f/u results Continue pain management Patient seen by PT and evaluated Will continue to follow patient while in house <Luis Carlos Almendarez - Last Filed: 03/10/18 11:42> Objective - Vital Signs/Intake and Output Vital Signs (last 24 hours): Temp Pulse Resp BP Pulse Ox 97.8 F 54 L 18 177/62 H 96 03/10/18 07:00 03/10/18 09:38 03/10/18 07:00 03/10/18 09:38 03/10/18 07:00 Intake and Output: 03/10/18 03/10/18 06:59 18:59 Intake Total 570 Output Total 400 Balance 170 - Medications Medications: Current Medications Acetaminophen (Tylenol 325mg Tab) 650 mg PO Q4H PRN PRN Reason: Pain, Mild (1-3) Amlodipine Besylate (Norvasc) 5 mg PO BID [facility] Last Admin: 03/10/18 09:38 Dose: 5 mg Heparin Sodium (Porcine) (Heparin) 5,000 units SC Q8H [facility]; Protocol Last Admin: 03/10/18 09:44 Dose: 5,000 units Ceftaroline Fosamil 600 mg/ (Sodium Chloride) 100 mls @ 100 mls/hr IVPB Q12 [facility] Last Admin: 03/10/18 09:42 Dose: 100 mls/hr Insulin Human Lispro (Humalog Low) 0 units SC ACHS [facility]; Protocol Last Admin: 03/10/18 07:43 Dose: Not Given Losartan Potassium (Cozaar) 25 mg PO DAILY [facility] Last Admin: 03/10/18 09:37 Dose: 25 mg Metoclopramide HCl (Reglan) 10 mg IV ONCE PRN PRN Reason: Nausea/Vomiting Ondansetron HCl (Zofran Inj) 4 mg IVP ONCE PRN PRN Reason: Nausea/Vomiting Oxycodone/Acetaminophen (Percocet 5/325 Mg Tab) 1 tab PO Q4H PRN PRN Reason: Pain, moderate (4-7) Stop: 03/11/18 08:45 Oxycodone/Acetaminophen (Percocet 5/325 Mg Tab) 2 tab PO Q4H PRN PRN Reason: Pain, severe (8-10) Stop: 03/11/18 08:45 Last Admin: 03/08/18 16:48 Dose: 2 tab Pantoprazole Sodium (Protonix Ec Tab) 20 mg PO 0600,1600 [facility] Last Admin: 03/10/18 06:30 Dose: 20 mg - Labs Labs: 03/10/18 10:00 03/09/18 06:30 PT 14.8 SECONDS (9.4-12.5) H 02/28/18 15:41 INR 1.29 02/28/18 15:41 APTT 34.7 Seconds (25.1-36.5) 02/28/18 15:41 Attending/Attestation - Attestation I have personally seen and examined this patient.: Yes I have fully participated in the care of the patient.: Yes I have reviewed all pertinent clinical information, including history, physical exam and plan: Yes
[2018-03-10] MEDS: Ceftaroline 600 MG in Sodium Chloride 0.9% 100 ML IVPB SCH ×2 (09:42→21:24)
--- NOTE | 2018-03-10 09:57 | CP.PCM.PN ---
<Jalyn Brown L - Last Filed: 03/10/18 19:02> Subjective - Date & Time of Evaluation Date of Evaluation: 03/10/18 Time of Evaluation: 07:30 - Subjective Subjective: Resident Progress Note for Hospitalist Service Patient examined at bedside. No acute events overnight. Patient states his pain is well controlled. He was able to tolerate out of bed to chair. Denies fevers, chills, chest pain, shortness of breath, abdominal pain. Objective - Vital Signs/Intake and Output Vital Signs (last 24 hours): Temp Pulse Resp BP Pulse Ox 97.8 F 54 L 18 177/62 H 96 03/10/18 07:00 03/10/18 09:38 03/10/18 07:00 03/10/18 09:38 03/10/18 07:00 Intake and Output: 03/10/18 03/10/18 06:59 18:59 Intake Total 570 Output Total 400 Balance 170 - Medications Medications: Current Medications Acetaminophen (Tylenol 325mg Tab) 650 mg PO Q4H PRN PRN Reason: Pain, Mild (1-3) Amlodipine Besylate (Norvasc) 5 mg PO BID [facility] Last Admin: 03/10/18 09:38 Dose: 5 mg Heparin Sodium (Porcine) (Heparin) 5,000 units SC Q8H [facility]; Protocol Last Admin: 03/10/18 09:44 Dose: 5,000 units Ceftaroline Fosamil 600 mg/ (Sodium Chloride) 100 mls @ 100 mls/hr IVPB Q12 [facility] Last Admin: 03/10/18 09:42 Dose: 100 mls/hr Insulin Human Lispro (Humalog Low) 0 units SC ACHS [facility]; Protocol Last Admin: 03/10/18 07:43 Dose: Not Given Losartan Potassium (Cozaar) 25 mg PO DAILY [facility] Last Admin: 03/10/18 09:37 Dose: 25 mg Metoclopramide HCl (Reglan) 10 mg IV ONCE PRN PRN Reason: Nausea/Vomiting Ondansetron HCl (Zofran Inj) 4 mg IVP ONCE PRN PRN Reason: Nausea/Vomiting Oxycodone/Acetaminophen (Percocet 5/325 Mg Tab) 1 tab PO Q4H PRN PRN Reason: Pain, moderate (4-7) Stop: 03/11/18 08:45 Oxycodone/Acetaminophen (Percocet 5/325 Mg Tab) 2 tab PO Q4H PRN PRN Reason: Pain, severe (8-10) Stop: 03/11/18 08:45 Last Admin: 03/08/18 16:48 Dose: 2 tab Pantoprazole Sodium (Protonix Ec Tab) 20 mg PO 0600,1600 [facility] Last Admin: 03/10/18 06:30 Dose: 20 mg - Labs Labs: 03/09/18 06:30 03/09/18 06:30 PT 14.8 SECONDS (9.4-12.5) H 02/28/18 15:41 INR 1.29 02/28/18 15:41 APTT 34.7 Seconds (25.1-36.5) 02/28/18 15:41 - Additional Findings Additional findings: - Constitutional Appears: Well, Non-toxic, No Acute Distress - Head Exam Head Exam: ATRAUMATIC, NORMAL INSPECTION, NORMOCEPHALIC - Eye Exam Eye Exam: EOMI, Normal appearance - ENT Exam ENT Exam: Mucous Membranes Moist - Respiratory Exam Respiratory Exam: Clear to Ausculation Bilateral, NORMAL BREATHING PATTERN - Cardiovascular Exam Cardiovascular Exam: REGULAR RHYTHM, +S1, +S2 - GI/Abdominal Exam GI & Abdominal Exam: Soft, Normal Bowel Sounds. absent: Tenderness - Extremities Exam Extremities Exam: Pedal Edema (left lower extremity). absent: Calf Tenderness, Normal Inspection (left lower leg), Tenderness - Back Exam Back Exam: NORMAL INSPECTION - Neurological Exam Neurological Exam: Alert, Awake, Oriented x3 - Psychiatric Exam Psychiatric exam: Normal Affect, Normal Mood - Skin Skin Exam: absent: Normal Color Additional comments: amputated second metatarsal head of left foot - dressings c/d/i Assessment and Plan - Assessment and Plan (Free Text) Assessment: 82 y/o M with PMHx of peripheral artery disease, chronic LLE cellulitis, COPD, h ypertension, dementia, obesity presents to [facility] with complaints of LLE anterior tibial region cellulitis and gangrenous L foot 2nd distal phalanx. OM confirmed on MRI 03/04. Amputation of second digit AM 03/07. Currently pain controlled waiting on path and culture results. 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 Arloro - amputated second metatarsal head of left foot 03/07 - ID on consult - Dr. Wylie recs appreciated s/p amputation depending on path and cultures - Ceftaroline day# 10 as per ID (CrCl >55; can continue with current abx dose). Will f/u podiatry recs and path margin report which will determine length of ABx course and choice of ABx - L foot xray: no signs of osteomyelitis, cellulitis present - Foot MRI 03/04 Marrow edema in 2nd proximal and middle phalanx consistent with osteo - Repeat wound cultures show MRSA - Urine cx negative - Final blood culture shows no growth after 5 days - Procalcitonin 0.07 Hx of Hypertension -Continue amlodipine and losartan IVF discontinued, so will continue to monitor response to BP Hx of Pre-diabetes - HgA1C 6.2 - Diabetes prevention and diet education - ISS-low DVT/GI PPx: - Heparin 5000 q8 - Protonix Dispo: SW - sw spoke with patient's in room. reviewed sub acute rehab recommendation. indicated that [facility] is her first [facility] followed [facility]. F/u PT eval for strengthening Patient seen, case reviewed and plan approved by Dr. Shilo Brown PGY-1 <Yousif Lao - Last Filed: 03/11/18 13:17> Objective - Vital Signs/Intake and Output Vital Signs (last 24 hours): Temp Pulse Resp BP Pulse Ox 97.7 F 54 L 22 167/57 H 97 03/11/18 07:00 03/11/18 10:19 03/11/18 07:00 03/11/18 10:19 03/11/18 07:00 Intake and Output: 03/11/18 03/11/18 06:59 18:59 Intake Total 540 Balance 540 - Medications Medications: Current Medications Acetaminophen (Tylenol 325mg Tab) 650 mg PO Q4H PRN PRN Reason: Pain, Mild (1-3) Amlodipine Besylate (Norvasc) 5 mg PO BID [facility] Last Admin: 03/11/18 10:19 Dose: 5 mg Heparin Sodium (Porcine) (Heparin) 5,000 units SC Q8H [facility]; Protocol Last Admin: 03/11/18 10:16 Dose: 5,000 units Ceftaroline Fosamil 600 mg/ (Sodium Chloride) 100 mls @ 100 mls/hr IVPB Q12 [facility] Last Admin: 03/11/18 10:18 Dose: 100 mls/hr Insulin Human Lispro (Humalog Low) 0 units SC ACHS [facility]; Protocol Last Admin: 03/11/18 07:41 Dose: Not Given Losartan Potassium (Cozaar) 25 mg PO DAILY [facility] Last Admin: 03/11/18 10:19 Dose: 25 mg Metoclopramide HCl (Reglan) 10 mg IV ONCE PRN PRN Reason: Nausea/Vomiting Ondansetron HCl (Zofran Inj) 4 mg IVP ONCE PRN PRN Reason: Nausea/Vomiting Pantoprazole Sodium (Protonix Ec Tab) 20 mg PO 0600,1600 [facility] Last Admin: 03/11/18 05:48 Dose: 20 mg - Labs Labs: 03/11/18 06:30 03/11/18 06:30 PT 14.8 SECONDS (9.4-12.5) H 02/28/18 15:41 INR 1.29 02/28/18 15:41 APTT 34.7 Seconds (25.1-36.5) 02/28/18 15:41 Attending/Attestation - Attestation I have personally seen and examined this patient.: Yes I have fully participated in the care of the patient.: Yes I have reviewed all pertinent clinical information, including history, physical exam and plan: Yes Notes (Text): 03/11/18 13:15 Medical record note made by the resident after discussion with my direction and input after the patient was personally seen and examined by me. I have reviewed the chart and agree that the record accurately reflects by personal performance of the history, physical exam, data review, and medical decision-making, in the course for the patient. I have also personally directed the plan of care. 82 yrs M with PMH of peripheral artery disease, chronic LLE cellulitis, COPD, hypertension, dementia, obesity presents to [facility] with complaints of LLE anterior tibial region cellulitis and gangrenous L foot 2nd distal phalanx.Foot MRI 03/04 Marrow edema in 2nd proximal and middle phalanx consistent with osteomylitis. wound cultures grew MRSA. Patient is SP Amputation of second digit AM 03/07. Pathology report is pending. Patient is on IV ceftaroline as per ID. Management plan was discussed in detail with patient. Education was provided. 03/11/18 13:17
[2018-03-10 10:32] LABS: BASO # 0.02 K/mm3 (0.0-2.0); BASO % 0.3 % (0.0-3.0); EOS # 0.3 (0.0-0.7); EOS % 4.1 % (1.5-5.0); GRAN # 5.49 (1.4-6.5); GRAN % 70.7 % (50.0-68.0); HEMOGLOBIN 10.9 g/dL (14.0-18.0); LYMPH # 1.3 (1.2-3.4); LYMPH % 16.9 % (22.0-35.0); MEAN CELL VOLUME 83.2 fl (80.0-105.0); MEAN CORPUSCULAR HEMOGLOBIN 27.3 pg (25.0-35.0); MEAN CORPUSCULAR HGB CONC 32.8 g/dl (31.0-37.0); MEAN PLATELET VOLUME 8.1 fl (7.0-11.0); MONO # 0.6 (0.1-0.6); RBC 3.99 10^6/uL (3.5-6.1); RED CELL DISTRIBUTION WIDTH 13.7 % (11.5-14.5); WHITE BLOOD COUNT 7.8 10^3/uL (4.5-11.0)
--- NOTE | 2018-03-10 11:02 | PN ---
DATE: 03/10/2018 SUBJECTIVE: The patient is in bed, in no acute distress, nontoxic. PHYSICAL EXAMINATION: VITAL SIGNS: Temperature is 97, blood pressure is 170/60 and respiratory rate of 18. HEENT: Unremarkable. NECK: Supple. LUNGS: Have decreased breath sounds. HEART: Normal, S1 and S2. ABDOMEN: Soft and nontender. LABORATORY DATA: Reveals the patient to have white count is 9.3 and hemoglobin of 11. Chemistry has been reviewed. Microbiology reveals gram-positive cocci from the culture from the and the culture from the is MRSA and the pathology is still pending. ASSESSMENT AND PLAN: This is an 82-year-old male who is seen earlier today in room 562, bed 1, with left leg and foot cellulitis, second toe gangrene, status post amputation, post procedure day #2 on Teflaro currently, patient with hypertension, coronary artery disease, renal disease, dementia, history of group G streptococcus bacteremia awaiting for pathology report and identification and sensitivity gram-positive cocci from the OR. We will follow with you. Wally Wylie MD
[2018-03-11] MEDS: Pantoprazole 20 mg EC Tab PO SCH ×2 (05:48→16:45)
[2018-03-11 06:51] LABS: BASO # 0.02 K/mm3 (0.0-2.0); BASO % 0.3 % (0.0-3.0); EOS # 0.4 (0.0-0.7); EOS % 4.6 % (1.5-5.0); GRAN # 5.04 (1.4-6.5); GRAN % 64.2 % (50.0-68.0); HEMOGLOBIN 10.6 g/dL (14.0-18.0); LYMPH # 1.7 (1.2-3.4); LYMPH % 21.1 % (22.0-35.0); MEAN CELL VOLUME 81.8 fl (80.0-105.0); MEAN CORPUSCULAR HEMOGLOBIN 26.4 pg (25.0-35.0); MEAN CORPUSCULAR HGB CONC 32.3 g/dl (31.0-37.0); MEAN PLATELET VOLUME 8.4 fl (7.0-11.0); MONO # 0.8 (0.1-0.6); MONO % 9.8 % (1.0-6.0); RBC 4.01 10^6/uL (3.5-6.1); RED CELL DISTRIBUTION WIDTH 13.4 % (11.5-14.5); WHITE BLOOD COUNT 7.9 10^3/uL (4.5-11.0)
[2018-03-11 07:21] LABS: ALBUMIN 3.3 g/dL (3.0-4.8); CALCIUM 8.7 mg/dL (8.4-10.5)
[2018-03-11] MEDS: Insulin Lispro (humaLOG) LOW Coverage SC SCH ×4 (07:41→21:23)
[2018-03-11] MEDS: Ceftaroline 600 MG in Sodium Chloride 0.9% 100 ML IVPB SCH ×2 (10:18→21:21)
--- NOTE | 2018-03-11 11:49 | PQF ---
PROVIDER RESPONSE TEXT: Patient had NIDDM, diet controlled Patient has diabetic perpheral Neuropathy. REVIEWER QUERY TEXT: Diabetic Associated Manifestations Please specify any manifestations associated / due to diabetes Such as: -- Diabetes with renal manifestation -- Diabetes with neurologic manifestation -- Diabetes with ophthalmic manifestation -- Diabetes with peripheral circulatory manifestation -- Other, please specify The patient's Clinical Indicators include: Documentation in the medical record notes patient has pre-diabetes. Documentation by podiatry notes "osteomyelitis of left second digit secondary to diabetic toe ulcer". Please clarify if patient has diabetes and if this a diabetic complication for coding accuracy. Query created by: aCren Mcclelland on 03/07/2018 1:19 PM Electronically signed by: Yousif Lao MD 03/11/2018 11:46 AM
--- NOTE | 2018-03-11 11:59 | CP.PCM.PN ---
<Esteban Ge - Last Filed: 03/11/18 11:56> Subjective - Date & Time of Evaluation Date of Evaluation: 03/11/18 Time of Evaluation: 11:56 - Subjective Subjective: Podiatry progress note for Dr. Hay 82M seen at bedside. Resting comfortably. Denies any pain to surgical site. Denies any acute events overnight, states he slept well and his pain is controlled. Denies N/V/F/C/SOB/CP and has no other pedal complaints at this time. Objective - Vital Signs/Intake and Output Vital Signs (last 24 hours): Temp Pulse Resp BP Pulse Ox 97.7 F 54 L 22 167/57 H 97 03/11/18 07:00 03/11/18 10:19 03/11/18 07:00 03/11/18 10:19 03/11/18 07:00 Intake and Output: 03/11/18 03/11/18 06:59 18:59 Intake Total 540 Balance 540 - Medications Medications: Current Medications Acetaminophen (Tylenol 325mg Tab) 650 mg PO Q4H PRN PRN Reason: Pain, Mild (1-3) Amlodipine Besylate (Norvasc) 5 mg PO BID [facility] Last Admin: 03/11/18 10:19 Dose: 5 mg Heparin Sodium (Porcine) (Heparin) 5,000 units SC Q8H [facility]; Protocol Last Admin: 03/11/18 10:16 Dose: 5,000 units Ceftaroline Fosamil 600 mg/ (Sodium Chloride) 100 mls @ 100 mls/hr IVPB Q12 [facility] Last Admin: 03/11/18 10:18 Dose: 100 mls/hr Insulin Human Lispro (Humalog Low) 0 units SC ACHS [facility]; Protocol Last Admin: 03/11/18 07:41 Dose: Not Given Losartan Potassium (Cozaar) 25 mg PO DAILY [facility] Last Admin: 03/11/18 10:19 Dose: 25 mg Metoclopramide HCl (Reglan) 10 mg IV ONCE PRN PRN Reason: Nausea/Vomiting Ondansetron HCl (Zofran Inj) 4 mg IVP ONCE PRN PRN Reason: Nausea/Vomiting Pantoprazole Sodium (Protonix Ec Tab) 20 mg PO 0600,1600 [facility] Last Admin: 03/11/18 05:48 Dose: 20 mg - Labs Labs: 03/11/18 06:30 03/11/18 06:30 PT 14.8 SECONDS (9.4-12.5) H 02/28/18 15:41 INR 1.29 02/28/18 15:41 APTT 34.7 Seconds (25.1-36.5) 02/28/18 15:41 - Constitutional Appears: Well, Non-toxic, No Acute Distress - Head Exam Head Exam: ATRAUMATIC, NORMOCEPHALIC - Extremities Exam Additional comments: Bilateral lower extremities exam VASC: faintly palpable pedal pulses bilaterally, Temp gradient warm to cool in the right side and warm to learning and development analyst the left side. Cap refill < 3 sec to all remaining digits. Erythema noted to the left midfoot, improving. Moderate non pitting edema noted to the left foot. NEURO: Gross and protective sensations are grossly diminished DERM: surgical site incision well coapted, sutures intact, no evidence of pus or purulent drainage, mild serosanguinous drainage noted on dressing, no openings or signs of wound dehiscence, no probing, no clinical signs of infection MSK: no pain on palpation of foot or legs bilaterally. Muscle power intact 5/5 to all groups b/l. - Neurological Exam Neurological Exam: Alert, Awake, Oriented x3 - Psychiatric Exam Psychiatric exam: Normal Affect, Normal Mood Assessment and Plan - Assessment and Plan (Free Text) Assessment: 82M POD 3 left second digit amputation with met head resection Plan: Patient seen and evaluated at bedside Discussed in detail with Dr. Hya Afebrile, absent leukocytosis Dressing taken down, surgical site cleansed with sterile saline, dressed with betadine, adaptic, DSD, light ARELY Wound cx 03/08 - gram positive cocci Continue medications per ID Postoperative x-ray - normal changes s/p 2nd digit amputation Pathology postop - pending, f/u results Continue pain management Patient seen by PT and evaluated - recommend [facility] for continued skilled PT and management Will continue to follow patient while in house <Megan Hay - Last Filed: 03/16/18 15:18> Objective - Vital Signs/Intake and Output Vital Signs (last 24 hours): Temp Pulse Resp BP Pulse Ox 97.6 F 43 L 20 144/86 96 03/16/18 14:00 03/16/18 14:00 03/16/18 14:00 03/16/18 14:00 03/16/18 14:00 Intake and Output: 03/16/18 03/16/18 06:59 18:59 Intake Total 860 360 Output Total 1410 Balance -550 360 - Medications Medications: Current Medications Acetaminophen (Tylenol 325mg Tab) 650 mg PO Q4H PRN PRN Reason: Pain, Mild (1-3) Amlodipine Besylate (Norvasc) 5 mg PO BID [facility] Last Admin: 03/16/18 09:41 Dose: 5 mg Heparin Sodium (Porcine) (Heparin) 5,000 units SC Q8H [facility]; Protocol Last Admin: 03/12/18 10:11 Dose: 5,000 units Ceftaroline Fosamil 600 mg/ (Sodium Chloride) 100 mls @ 100 mls/hr IVPB Q12 [facility] Last Admin: 03/16/18 09:41 Dose: 100 mls/hr Insulin Human Regular (Humulin R Med) 0 units SC ACHS [facility]; Protocol Last Admin: 03/16/18 11:50 Dose: Not Given Losartan Potassium (Cozaar) 25 mg PO DAILY [facility] Last Admin: 03/14/18 11:47 Dose: 25 mg Ondansetron HCl (Zofran Inj) 4 mg IVP ONCE PRN PRN Reason: Nausea/Vomiting Pantoprazole Sodium (Protonix Ec Tab) 20 mg PO 0600,1600 [facility] Last Admin: 03/16/18 05:45 Dose: 20 mg - Labs Labs: 03/16/18 06:45 03/16/18 06:45 PT 15.0 SECONDS (9.4-12.5) H 03/13/18 06:30 INR 1.30 03/13/18 06:30 APTT 38.5 Seconds (25.1-36.5) H 03/13/18 06:30 Attending/Attestation - Attestation I have personally seen and examined this patient.: Yes I have fully participated in the care of the patient.: Yes I have reviewed all pertinent clinical information, including history, physical exam and plan: Yes
--- NOTE | 2018-03-11 15:06 | CP.PCM.PN ---
Subjective - Date & Time of Evaluation Date of Evaluation: 03/11/18 Time of Evaluation: 09:40 - Subjective Subjective: Sincere Aparicio, PGY-1 Progress Note for Hospitalist Service Patient seen and evaluated at bedside. No acute complaints reported overnight. Patient states his pain is well controlled. He was able to tolerate out of bed to chair. Denies fevers, chills, chest pain, shortness of breath, abdominal pain. Denies left foot pain. Objective - Vital Signs/Intake and Output Vital Signs (last 24 hours): Temp Pulse Resp BP Pulse Ox 97.7 F 54 L 22 167/57 H 97 03/11/18 07:00 03/11/18 10:19 03/11/18 07:00 03/11/18 10:19 03/11/18 07:00 Intake and Output: 03/11/18 03/11/18 06:59 18:59 Intake Total 540 Balance 540 - Medications Medications: Current Medications Acetaminophen (Tylenol 325mg Tab) 650 mg PO Q4H PRN PRN Reason: Pain, Mild (1-3) Amlodipine Besylate (Norvasc) 5 mg PO BID [facility] Last Admin: 03/11/18 10:19 Dose: 5 mg Heparin Sodium (Porcine) (Heparin) 5,000 units SC Q8H [facility]; Protocol Last Admin: 03/11/18 10:16 Dose: 5,000 units Ceftaroline Fosamil 600 mg/ (Sodium Chloride) 100 mls @ 100 mls/hr IVPB Q12 [facility] Last Admin: 03/11/18 10:18 Dose: 100 mls/hr Insulin Human Lispro (Humalog Low) 0 units SC ACHS [facility]; Protocol Last Admin: 03/11/18 11:52 Dose: Not Given Losartan Potassium (Cozaar) 25 mg PO DAILY [facility] Last Admin: 03/11/18 10:19 Dose: 25 mg Metoclopramide HCl (Reglan) 10 mg IV ONCE PRN PRN Reason: Nausea/Vomiting Ondansetron HCl (Zofran Inj) 4 mg IVP ONCE PRN PRN Reason: Nausea/Vomiting Pantoprazole Sodium (Protonix Ec Tab) 20 mg PO 0600,1600 [facility] Last Admin: 03/11/18 05:48 Dose: 20 mg - Labs Labs: 03/11/18 06:30 03/11/18 06:30 PT 14.8 SECONDS (9.4-12.5) H 02/28/18 15:41 INR 1.29 02/28/18 15:41 APTT 34.7 Seconds (25.1-36.5) 02/28/18 15:41 - Additional Findings Additional findings: - Constitutional Appears: Well, Non-toxic, No Acute Distress - Head Exam Head Exam: ATRAUMATIC, NORMAL INSPECTION, NORMOCEPHALIC - Eye Exam Eye Exam: EOMI, Normal appearance - ENT Exam ENT Exam: Mucous Membranes Moist - Respiratory Exam Respiratory Exam: Clear to Ausculation Bilateral, NORMAL BREATHING PATTERN - Cardiovascular Exam Cardiovascular Exam: REGULAR RHYTHM, +S1, +S2 - GI/Abdominal Exam GI & Abdominal Exam: Soft, Normal Bowel Sounds. absent: Tenderness - Extremities Exam Extremities Exam: Pedal Edema (left lower extremity). absent: Calf Tenderness, Normal Inspection (left lower leg), Tenderness - Back Exam Back Exam: NORMAL INSPECTION - Neurological Exam Neurological Exam: Alert, Awake, Oriented x3 - Psychiatric Exam Psychiatric exam: Normal Affect, Normal Mood - Skin Skin Exam: absent: Normal Color Additional comments: amputated second metatarsal head of left foot - dressings c/d/i Assessment and Plan - Assessment and Plan (Free Text) Assessment: 82 y/o M with PMHx of peripheral artery disease, chronic LLE cellulitis, COPD, hypertension, dementia, obesity presents to [facility] with complaints of LLE anterior tibial region cellulitis and gangrenous L foot 2nd distal phalanx. OM confirmed on MRI 03/04. Amputation of second digit AM 03/07. Currently pain controlled waiting on path and culture results. 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 Almendarez - amputated second metatarsal head of left foot 03/08 - ID on consult - Dr. Wylie recs appreciated s/p amputation depending on path and cultures - Ceftaroline day# 11 as per ID (CrCl >55; can continue with current abx dose). Will f/u podiatry recs and path margin report which will determine length and choice of ABx. F/u ID recs thereafter for ABx choices suitable for YO[facility]. - L foot xray: no signs of osteomyelitis, cellulitis present - Foot MRI 03/04 Marrow edema in 2nd proximal and middle phalanx consistent with osteo - Repeat wound cultures from 03/08 show MRSA - Urine cx negative - Final blood culture shows no growth after 5 days - Procalcitonin 0.07 Hx of Hypertension -Continue amlodipine and losartan. Losartan held per nursing due to bradycardia - will consider increasing Losartan if BP remains elevated tomorrow IVF discontinued, so will continue to monitor response to BP Hx of Pre-diabetes - HgA1C 6.2 - Diabetes prevention and diet education - ISS-low DVT/GI PPx: - Heparin 5000 q8 - Protonix Dispo: SW - indicated that [facility] is her first choice followed [facility]. f/u podiatry recs and path margin report which will determine length and choice of ABx. F/u ID recs thereafter for ABx choices suitable for YO[facility]. F/u PT eval for strengthening Patient seen, case reviewed and plan approved by Dr. Shilo Aparicio, PGY-1
--- NOTE | 2018-03-11 21:52 | PN ---
DATE: 03/11/2018 SUBJECTIVE: The patient is in bed, in no acute distress. He was seen earlier today in room 562. No fevers and chills. PHYSICAL EXAMINATION: VITAL SIGNS: Temperature is 98, blood pressure is 120/70, respiratory rate of 16. HEENT: Unremarkable. NECK: Supple. LUNGS: Have decreased breath sounds. HEART: Normal S1, S2. ABDOMEN: Soft. LABORATORY EXAMINATION: Reveals a white count of 7.9, hemoglobin of 10. Chemistries are noted, BUN of 27, creatinine of 1.5. Microbiology reveals MRSA from the pleural cultures and pathology is still pending. ASSESSMENT AND PLAN: This is an 82-year-old male who was seen earlier today in 562, bed #1, with a left leg and foot cellulitis, second toe gangrene, status post amputation postprocedure day #3 with Teflaro, with a history of hypertension, coronary artery disease, renal disease, dementia, and group G strep bacteremia. Waiting for pathology and the operating room cultures. We will make further recommendations based on pathology and operating room cultures, regarding antibiotic choice and duration of antibiotics. Wally Wylie MD
[2018-03-12 06:46] LABS: BASO # 0.03 K/mm3 (0.0-2.0); BASO % 0.4 % (0.0-3.0); EOS # 0.4 (0.0-0.7); EOS % 4.4 % (1.5-5.0); GRAN # 5.15 (1.4-6.5); GRAN % 64.4 % (50.0-68.0); HEMOGLOBIN 11.3 g/dL (14.0-18.0); LYMPH # 1.9 (1.2-3.4); LYMPH % 23.5 % (22.0-35.0); MEAN CELL VOLUME 82.2 fl (80.0-105.0); MEAN CORPUSCULAR HEMOGLOBIN 26.4 pg (25.0-35.0); MEAN CORPUSCULAR HGB CONC 32.1 g/dl (31.0-37.0); MEAN PLATELET VOLUME 8.1 fl (7.0-11.0); MONO # 0.6 (0.1-0.6); MONO % 7.3 % (1.0-6.0); RBC 4.28 10^6/uL (3.5-6.1); RED CELL DISTRIBUTION WIDTH 13.7 % (11.5-14.5)
[2018-03-12 07:11] LABS: ALBUMIN 3.3 g/dL (3.0-4.8)
--- NOTE | 2018-03-12 09:19 | CP.PCM.PN ---
<Sincere Aparicio - Last Filed: 03/12/18 15:03> Subjective - Date & Time of Evaluation Date of Evaluation: 03/12/18 Time of Evaluation: 07:30 - Subjective Subjective: Sincere Aparicio PGY-1 Progress Note for Hospitalist Service Patient seen and evaluated at bedside. No acute complaints reported overnight. Patient states his pain is well controlled. He was able to tolerate out of bed to chair yesterday. Denies fevers, chills, chest pain, shortness of breath, abdominal pain. Denies left foot pain. Objective - Vital Signs/Intake and Output Vital Signs (last 24 hours): Temp Pulse Resp BP Pulse Ox 97.6 F 60 20 160/58 H 96 03/12/18 06:00 03/12/18 06:00 03/12/18 06:00 03/12/18 06:00 03/12/18 06:00 - Medications Medications: Current Medications Acetaminophen (Tylenol 325mg Tab) 650 mg PO Q4H PRN PRN Reason: Pain, Mild (1-3) Amlodipine Besylate (Norvasc) 5 mg PO BID [facility] Last Admin: 03/11/18 18:44 Dose: 5 mg Heparin Sodium (Porcine) (Heparin) 5,000 units SC Q8H [facility]; Protocol Last Admin: 03/12/18 02:29 Dose: Not Given Ceftaroline Fosamil 600 mg/ (Sodium Chloride) 100 mls @ 100 mls/hr IVPB Q12 [facility] Last Admin: 03/11/18 21:21 Dose: 100 mls/hr Insulin Human Lispro (Humalog Low) 0 units SC ACHS [facility]; Protocol Last Admin: 03/11/18 21:23 Dose: Not Given Losartan Potassium (Cozaar) 25 mg PO DAILY [facility] Last Admin: 03/11/18 10:19 Dose: 25 mg Metoclopramide HCl (Reglan) 10 mg IV ONCE PRN PRN Reason: Nausea/Vomiting Ondansetron HCl (Zofran Inj) 4 mg IVP ONCE PRN PRN Reason: Nausea/Vomiting Pantoprazole Sodium (Protonix Ec Tab) 20 mg PO 0600,1600 [facility] Last Admin: 03/11/18 16:45 Dose: Not Given - Labs Labs: 03/12/18 06:20 03/12/18 06:20 PT 14.8 SECONDS (9.4-12.5) H 02/28/18 15:41 INR 1.29 02/28/18 15:41 APTT 34.7 Seconds (25.1-36.5) 02/28/18 15:41 - Additional Findings Additional findings: - Constitutional Appears: Well, Non-toxic, No Acute Distress - Head Exam Head Exam: ATRAUMATIC, NORMAL INSPECTION, NORMOCEPHALIC - Eye Exam Eye Exam: EOMI, Normal appearance - ENT Exam ENT Exam: Mucous Membranes Moist - Respiratory Exam Respiratory Exam: Clear to Ausculation Bilateral, NORMAL BREATHING PATTERN - Cardiovascular Exam Cardiovascular Exam: REGULAR RHYTHM, +S1, +S2 - GI/Abdominal Exam GI & Abdominal Exam: Soft, Normal Bowel Sounds. absent: Tenderness - Extremities Exam Extremities Exam: Pedal Edema (left lower extremity). absent: Calf Tenderness, Normal Inspection (left lower leg), Tenderness - Back Exam Back Exam: NORMAL INSPECTION - Neurological Exam Neurological Exam: Alert, Awake, Oriented x3. Remaining toes have poor sensation 2/2 diabetic peripheral neuropathy - Psychiatric Exam Psychiatric exam: Normal Affect, Normal Mood - Skin Skin Exam: absent: Normal Color Additional comments: amputated second metatarsal head of left foot - dressings c/d/i Assessment and Plan - Assessment and Plan (Free Text) Assessment: 82 y/o M with PMHx of peripheral artery disease, chronic LLE cellulitis, COPD, hypertension, dementia, obesity [place] [facility] [place] complaints of LLE anterior tibial region cellulitis and gangrenous L foot 2nd distal phalanx. OM confirmed on MRI 03/04. Amputation of second digit AM 03/07. Currently pain controlled waiting on ID and podiatry recs. POD #4. 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 Almendarez - amputated second metatarsal head of left foot 03/08 - ID on consult - Dr. Wylie recs appreciated s/p amputation depending on path and cultures - Ceftaroline day# 12 as per ID (CrCl >55; can continue with current abx dose). Will f/u podiatry recs Path: margin report 03/12: Inflammatory process involves bone and soft tissue at resection margin. Separate bone with OM. Separate skin and soft tissue with marked acute inflammation. -f/u podiatry and ID recs thereafter for oral ABx choices suitable for YOEL. - L foot xray: no signs of osteomyelitis, cellulitis present - Foot MRI 03/04 Marrow edema in 2nd proximal and middle phalanx consistent with osteo - Repeat wound cultures from 03/08 show MRSA - Urine cx negative - Final blood culture shows no growth after 5 days - Procalcitonin 0.07 Hx of Hypertension -Continue amlodipine and losartan. Losartan held per nursing due to bradycardia - will consider increasing Losartan if BP remains elevated tomorrow IVF discontinued, so will continue to monitor response to BP Hx of Pre-diabetes, Diabetic Peripheral Neuropathy - HgA1C 6.2 - Diabetes prevention and diet education - ISS-low DVT/GI PPx: - Heparin 5000 q8 - Protonix Dispo: SW/CM - YOEL when medically clear F/u ID recs thereafter for ABx choices suitable for YOEL placement F/u PT eval for strengthening Patient seen, case reviewed and plan approved by Dr. Gibbs. Sincere Aparicio, PGY-1 <Av Gibbs - Last Filed: 03/12/18 16:07> Objective - Vital Signs/Intake and Output Vital Signs (last 24 hours): Temp Pulse Resp BP Pulse Ox 98.5 F 45 L 20 151/56 H 100 03/12/18 14:00 03/12/18 14:00 03/12/18 14:00 03/12/18 14:00 03/12/18 14:00 - Medications Medications: Current Medications Acetaminophen (Tylenol 325mg Tab) 650 mg PO Q4H PRN PRN Reason: Pain, Mild (1-3) Amlodipine Besylate (Norvasc) 5 mg PO BID [facility] Last Admin: 03/12/18 10:09 Dose: 5 mg Heparin Sodium (Porcine) (Heparin) 5,000 units SC Q8H [facility]; Protocol Last Admin: 03/12/18 10:11 Dose: 5,000 units Ceftaroline Fosamil 600 mg/ (Sodium Chloride) 100 mls @ 100 mls/hr IVPB Q12 [facility] Last Admin: 03/12/18 10:08 Dose: 100 mls/hr Insulin Human Lispro (Humalog Low) 0 units SC ACHS [facility]; Protocol Last Admin: 03/12/18 10:12 Dose: Not Given Losartan Potassium (Cozaar) 25 mg PO DAILY [facility] Last Admin: 03/12/18 10:09 Dose: 25 mg Ondansetron HCl (Zofran Inj) 4 mg IVP ONCE PRN PRN Reason: Nausea/Vomiting Pantoprazole Sodium (Protonix Ec Tab) 20 mg PO 0600,1600 [facility] Last Admin: 03/11/18 16:45 Dose: Not Given - Labs Labs: 03/12/18 06:20 03/12/18 06:20 PT 14.8 SECONDS (9.4-12.5) H 02/28/18 15:41 INR 1.29 02/28/18 15:41 APTT 34.7 Seconds (25.1-36.5) 02/28/18 15:41 Attending/Attestation - Attestation I have personally seen and examined this patient.: Yes I have fully participated in the care of the patient.: Yes I have reviewed all pertinent clinical information, including history, physical exam and plan: Yes Notes (Text): 03/12/18 16:00 82 year old male with past medical history of PAD, COPD, hypertension, and chronic LE cellulitis who presented with complaint of left lower extremity cellulitis and gangrenous left 2nd distal phalanx. Foot MRI was consistent with 2nd proximal/middle phalanx osteomyelitis and wound culture grew MRSA. Patient is on IV antibiotics. ID and podiatry are following. He is s/p amputation of second digit POD #5. Pathology came back today, reviewed as above; will review findings with ID and podiatry and discuss with high risk case manager regarding YOEL. Av Gibbs MD Hospitalist.
[2018-03-12] MEDS: Ceftaroline 600 MG in Sodium Chloride 0.9% 100 ML IVPB SCH ×2 (10:08→21:44)
[2018-03-12] MEDS: Insulin Lispro (humaLOG) LOW Coverage SC SCH ×3 (10:12→17:49)
--- NOTE | 2018-03-12 10:37 | CP.PCM.PN ---
<Sanju Ruelas - Last Filed: 03/12/18 19:54> Subjective - Date & Time of Evaluation Date of Evaluation: 03/12/18 Time of Evaluation: 10:37 - Subjective Subjective: Podiatry progress note for Dr. Hay 82 y/o M patient seen and evaluated at the bedside 5 days S/P left second digit amputation with met head resection. Patient was resting comfortably and NAD. He denies any pain to surgical site. Denies any acute events overnight. Patient denies N/V/F/C/SOB/CP and has no other pedal complaints at this time. Objective - Vital Signs/Intake and Output Vital Signs (last 24 hours): Temp Pulse Resp BP Pulse Ox 97.6 F 60 20 160/58 H 96 03/12/18 06:00 03/12/18 10:09 03/12/18 06:00 03/12/18 10:09 03/12/18 06:00 - Medications Medications: Current Medications Acetaminophen (Tylenol 325mg Tab) 650 mg PO Q4H PRN PRN Reason: Pain, Mild (1-3) Amlodipine Besylate (Norvasc) 5 mg PO BID [facility] Last Admin: 03/12/18 10:09 Dose: 5 mg Heparin Sodium (Porcine) (Heparin) 5,000 units SC Q8H [facility]; Protocol Last Admin: 03/12/18 10:11 Dose: 5,000 units Ceftaroline Fosamil 600 mg/ (Sodium Chloride) 100 mls @ 100 mls/hr IVPB Q12 [facility] Last Admin: 03/12/18 10:08 Dose: 100 mls/hr Insulin Human Lispro (Humalog Low) 0 units SC ACHS [facility]; Protocol Last Admin: 03/12/18 10:12 Dose: Not Given Losartan Potassium (Cozaar) 25 mg PO DAILY [facility] Last Admin: 03/12/18 10:09 Dose: 25 mg Metoclopramide HCl (Reglan) 10 mg IV ONCE PRN PRN Reason: Nausea/Vomiting Ondansetron HCl (Zofran Inj) 4 mg IVP ONCE PRN PRN Reason: Nausea/Vomiting Pantoprazole Sodium (Protonix Ec Tab) 20 mg PO 0600,1600 [facility] Last Admin: 03/11/18 16:45 Dose: Not Given - Labs Labs: 03/12/18 06:20 03/12/18 06:20 PT 14.8 SECONDS (9.4-12.5) H 02/28/18 15:41 INR 1.29 02/28/18 15:41 APTT 34.7 Seconds (25.1-36.5) 02/28/18 15:41 - Constitutional Appears: Well, Non-toxic, No Acute Distress - Head Exam Head Exam: ATRAUMATIC, NORMOCEPHALIC - Extremities Exam Additional comments: Bilateral lower extremities exam VASC: faintly palpable pedal pulses bilaterally, Temp gradient warm to cool in the right side and warm to mitering machine operator the left side. Cap refill < 3 sec to all rem aining digits. No erythema noted. Mild non pitting edema noted to the left foot. NEURO: Gross and protective sensations are grossly diminished DERM: Surgical site incision well coapted, sutures intact, no evidence of pus or purulent drainage, No drainage noted through the dressing, no openings or signs of wound dehiscence, no probing, no clinical signs of infection MSK: No pain on palpation of foot or legs bilaterally. Muscle power intact 5/5 to all groups b/l. - Neurological Exam Neurological Exam: Alert, Awake, Oriented x3 Assessment and Plan - Assessment and Plan (Free Text) Assessment: 82 y/o M patient seen and evaluated at the bedside 5 days S/P left second digit amputation with met head resection Plan: Patient seen and evaluated at bedside with Dr. Hay Discussed in detail with Dr. Hay Charts, labs ad vitals reviewed; Afebrile, absent leukocytosis Dressing taken down, surgical site dressed with betadine, adaptic, DSD, light ARELY Wound cx 03/08 - MRSAi Continue medications per ID Postoperative x-ray - normal changes s/p 2nd digit amputation, fragment of bone noted at the amputation site Pathology postop - OM of the amputated toe, 2nd met head clean with no OM. Continue pain management as needed Patient seen by PT and evaluated - recommend [facility] for continued skilled PT and management Patient planned to go to the OR tomorrow 03/13 to excise the bone fragment from the amputation site Podiatry will continue to follow up the patient while in house <Megan Hay - Last Filed: 03/16/18 15:10> Objective - Vital Signs/Intake and Output Vital Signs (last 24 hours): Temp Pulse Resp BP Pulse Ox 97.6 F 43 L 20 144/86 96 03/16/18 14:00 03/16/18 14:00 03/16/18 14:00 03/16/18 14:00 03/16/18 14:00 Intake and Output: 03/16/18 03/16/18 06:59 18:59 Intake Total 860 360 Output Total 1410 Balance -550 360 - Medications Medications: Current Medications Acetaminophen (Tylenol 325mg Tab) 650 mg PO Q4H PRN PRN Reason: Pain, Mild (1-3) Amlodipine Besylate (Norvasc) 5 mg PO BID [facility] Last Admin: 03/16/18 09:41 Dose: 5 mg Heparin Sodium (Porcine) (Heparin) 5,000 units SC Q8H [facility]; Protocol Last Admin: 03/12/18 10:11 Dose: 5,000 units Ceftaroline Fosamil 600 mg/ (Sodium Chloride) 100 mls @ 100 mls/hr IVPB Q12 [facility] Last Admin: 03/16/18 09:41 Dose: 100 mls/hr Insulin Human Regular (Humulin R Med) 0 units SC ACHS [facility]; Protocol Last Admin: 03/16/18 11:50 Dose: Not Given Losartan Potassium (Cozaar) 25 mg PO DAILY [facility] Last Admin: 03/14/18 11:47 Dose: 25 mg Ondansetron HCl (Zofran Inj) 4 mg IVP ONCE PRN PRN Reason: Nausea/Vomiting Pantoprazole Sodium (Protonix Ec Tab) 20 mg PO 0600,1600 [facility] Last Admin: 03/16/18 05:45 Dose: 20 mg - Labs Labs: 03/16/18 06:45 03/16/18 06:45 PT 15.0 SECONDS (9.4-12.5) H 03/13/18 06:30 INR 1.30 03/13/18 06:30 APTT 38.5 Seconds (25.1-36.5) H 03/13/18 06:30 Attending/Attestation - Attestation I have personally seen and examined this patient.: Yes I have fully participated in the care of the patient.: Yes I have reviewed all pertinent clinical information, including history, physical exam and plan: Yes
[2018-03-12] MEDS: Pantoprazole 20 mg EC Tab PO SCH ×2 (17:32→19:30)
--- NOTE | 2018-03-12 21:31 | CP.PCM.PN ---
Subjective - Date & Time of Evaluation Date of Evaluation: 03/12/18 Time of Evaluation: 08:50 - Subjective Subjective: Comfortable, no fevers. Objective - Vital Signs/Intake and Output Vital Signs (last 24 hours): Temp Pulse Resp BP Pulse Ox 98.5 F 45 L 20 151/56 H 100 03/12/18 14:00 03/12/18 17:32 03/12/18 14:00 03/12/18 17:32 03/12/18 14:00 - Medications Medications: Current Medications Acetaminophen (Tylenol 325mg Tab) 650 mg PO Q4H PRN PRN Reason: Pain, Mild (1-3) Amlodipine Besylate (Norvasc) 5 mg PO BID [facility] Last Admin: 03/12/18 17:32 Dose: 5 mg Heparin Sodium (Porcine) (Heparin) 5,000 units SC Q8H [facility]; Protocol Last Admin: 03/12/18 10:11 Dose: 5,000 units Ceftaroline Fosamil 600 mg/ (Sodium Chloride) 100 mls @ 100 mls/hr IVPB Q12 [facility] Last Admin: 03/12/18 10:08 Dose: 100 mls/hr Insulin Human Lispro (Humalog Low) 0 units SC ACHS [facility]; Protocol Last Admin: 03/12/18 17:49 Dose: Not Given Losartan Potassium (Cozaar) 25 mg PO DAILY [facility] Last Admin: 03/12/18 10:09 Dose: 25 mg Ondansetron HCl (Zofran Inj) 4 mg IVP ONCE PRN PRN Reason: Nausea/Vomiting Pantoprazole Sodium (Protonix Ec Tab) 20 mg PO 0600,1600 [facility] Last Admin: 03/12/18 19:30 Dose: Not Given - Labs Labs: 03/12/18 06:20 03/12/18 06:20 PT 14.8 SECONDS (9.4-12.5) H 02/28/18 15:41 INR 1.29 02/28/18 15:41 APTT 34.7 Seconds (25.1-36.5) 02/28/18 15:41 - Constitutional Appears: Chronically Ill - Head Exam Head Exam: NORMAL INSPECTION - Respiratory Exam Respiratory Exam: Decreased Breath Sounds - Cardiovascular Exam Cardiovascular Exam: +S1, +S2 - GI/Abdominal Exam GI & Abdominal Exam: Soft. absent: Tenderness - Extremities Exam Additional comments: left foot with dressings in place Assessment and Plan - Assessment and Plan (Free Text) Plan: Assessment left leg and foot cellulitis and 2nd toe gangrene, with osteomyelitis with MRSA S/P amputation POD #4 - margins of bone still with osteomyelitis history of Group G strep bacteremia, probably secondary to bilateral lower extremities skin and skin structure infection; history of rhabdomyolysis CAD HTN chronic renal failure dementia obesity with BMI 32 Plan continue Teflaro and will need at least 4-6 weeks of antibiotics with weekly ESR, CRP, CBC, CMP to be followed by the wound care center while on antibiotics
[2018-03-13] MEDS: Pantoprazole 20 mg EC Tab PO SCH ×2 (05:12→16:07)
[2018-03-13] MEDS: Insulin Lispro (humaLOG) LOW Coverage SC SCH ×2 (05:12→09:40)
[2018-03-13 06:59] LABS: BASO # 0.03 K/mm3 (0.0-2.0); BASO % 0.4 % (0.0-3.0); EOS # 0.3 (0.0-0.7); EOS % 4.4 % (1.5-5.0); GRAN # 4.74 (1.4-6.5); GRAN % 65.2 % (50.0-68.0); LYMPH # 1.6 (1.2-3.4); LYMPH % 21.6 % (22.0-35.0); MEAN CELL VOLUME 82.2 fl (80.0-105.0); MEAN CORPUSCULAR HEMOGLOBIN 26.4 pg (25.0-35.0); MEAN CORPUSCULAR HGB CONC 32.2 g/dl (31.0-37.0); MEAN PLATELET VOLUME 8.4 fl (7.0-11.0); MONO # 0.6 (0.1-0.6); MONO % 8.4 % (1.0-6.0); RBC 4.16 10^6/uL (3.5-6.1); RED CELL DISTRIBUTION WIDTH 13.7 % (11.5-14.5); WHITE BLOOD COUNT 7.3 10^3/uL (4.5-11.0)
[2018-03-13 07:08] LABS: ALBUMIN 3.4 g/dL (3.0-4.8); ALT/SGPT 21 U/L (7-56); AST/SGOT 25 U/L (17-59); BLOOD UREA NITROGEN 28 mg/dL (7-21); CALCIUM 9.1 mg/dL (8.4-10.5); GFR NON-AFRICAN AMERICAN 53
[2018-03-13 07:35] LABS: INR 1.3; PARTIAL THROMBOPLASTIN TIME 38.5 Seconds (25.1-36.5)
--- NOTE | 2018-03-13 09:12 | RAD ---
Date of service: 03/13/2018 HISTORY: Pre operative COMPARISON: 07/14/2016 FINDINGS: LUNGS: No active pulmonary disease. PLEURA: No significant pleural effusion identified, no pneumothorax apparent. CARDIOVASCULAR: No aortic atherosclerotic calcification present. Normal cardiac size. No pulmonary vascular congestion. OSSEOUS STRUCTURES: No significant abnormalities. VISUALIZED UPPER ABDOMEN: Normal. OTHER FINDINGS: None. IMPRESSION: No active disease.
[2018-03-13] MEDS: Ceftaroline 600 MG in Sodium Chloride 0.9% 100 ML IVPB SCH ×2 (10:42→21:20)
[2018-03-13] MEDS: Insulin Reg-MEDIUM-Coverage SC SCH ×3 (11:46→21:57)
--- NOTE | 2018-03-13 14:57 | CP.PCM.PN ---
<Sincere Aparicio - Last Filed: 03/13/18 14:50> Subjective - Date & Time of Evaluation Date of Evaluation: 03/13/18 Time of Evaluation: 08:30 - Subjective Subjective: Sincere Aparicio PGY-1 Progress Note for Hospitalist Service Patient seen and evaluated at bedside. No acute complaints reported overnight. Patient states his pain is well controlled. He was able to tolerate out of bed to chair yesterday. Denies fevers, chills, chest pain, shortness of breath, abdominal pain. Denies left foot pain. Plan for OR today for bone fragment of L foot. Objective - Vital Signs/Intake and Output Vital Signs (last 24 hours): Temp Pulse Resp BP Pulse Ox 97.5 F L 31 L 18 122/59 L 97 03/13/18 07:00 03/13/18 12:45 03/13/18 12:45 03/13/18 12:45 03/13/18 07:00 Intake and Output: 03/13/18 03/13/18 06:59 18:59 Output Total 1000 Balance -1000 - Medications Medications: Current Medications Acetaminophen (Tylenol 325mg Tab) 650 mg PO Q4H PRN PRN Reason: Pain, Mild (1-3) Amlodipine Besylate (Norvasc) 5 mg PO BID [facility] Last Admin: 03/13/18 09:25 Dose: Not Given Heparin Sodium (Porcine) (Heparin) 5,000 units SC Q8H [facility]; Protocol Last Admin: 03/12/18 10:11 Dose: 5,000 units Ceftaroline Fosamil 600 mg/ (Sodium Chloride) 100 mls @ 100 mls/hr IVPB Q12 [facility] Last Admin: 03/13/18 10:42 Dose: 100 mls/hr Insulin Human Regular (Humulin R Med) 0 units SC ACHS [facility]; Protocol Last Admin: 03/13/18 11:46 Dose: Not Given Losartan Potassium (Cozaar) 25 mg PO DAILY [facility] Last Admin: 03/13/18 09:25 Dose: Not Given Ondansetron HCl (Zofran Inj) 4 mg IVP ONCE PRN PRN Reason: Nausea/Vomiting Pantoprazole Sodium (Protonix Ec Tab) 20 mg PO 0600,1600 [facility] Last Admin: 03/13/18 05:12 Dose: 20 mg - Labs Labs: 03/13/18 06:30 03/13/18 06:30 PT 15.0 SECONDS (9.4-12.5) H 03/13/18 06:30 INR 1.30 03/13/18 06:30 APTT 38.5 Seconds (25.1-36.5) H 03/13/18 06:30 - Additional Findings Additional findings: - Constitutional Appears: Well, Non-toxic, No Acute Distress - Head Exam Head Exam: ATRAUMATIC, NORMAL INSPECTION, NORMOCEPHALIC - Eye Exam Eye Exam: EOMI, Normal appearance - ENT Exam ENT Exam: Mucous Membranes Moist - Respiratory Exam Respiratory Exam: Clear to Ausculation Bilateral, NORMAL BREATHING PATTERN - Cardiovascular Exam Cardiovascular Exam: REGULAR RHYTHM, +S1, +S2 - GI/Abdominal Exam GI & Abdominal Exam: Soft, Normal Bowel Sounds. absent: Tenderness - Extremities Exam Extremities Exam: Pedal Edema (left lower extremity). absent: Calf Tenderness, Normal Inspection (left lower leg), Tenderness - Back Exam Back Exam: NORMAL INSPECTION - Neurological Exam Neurological Exam: Alert, Awake, Oriented x3. Remaining toes have poor sensation 2/2 diabetic peripheral neuropathy - Psychiatric Exam Psychiatric exam: Normal Affect, Normal Mood - Skin Skin Exam: absent: Normal Color Additional comments: amputated second metatarsal head of left foot - dressings c/d/i Assessment and Plan - Assessment and Plan (Free Text) Assessment: 82 y/o M with PMHx of peripheral artery disease, chronic LLE cellulitis, COPD, hypertension, dementia, obesity presents to [facility] [place] with complaints of LLE anterior tibial region cellulitis and gangrenous L foot 2nd distal phalanx. OM confirmed on MRI 03/04. Amputation of second digit AM 03/07. Currently pain controlled waiting on ID and podiatry recs. POD #5. 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 Almendarez - amputated second metatarsal head of left foot 03/08. OR 03/13 to excise the bone fragment from the amputation site - ID on consult - Dr. Wylie recs- at least 4-6 weeks of Ceftaroline with weekly ESR, CRP, CBC and CMP - Ceftaroline day# 13 as per ID (CrCl >55; can continue with current abx dose). Path: margin report 03/12: Inflammatory process involves bone and soft tissue at resection margin. Separate bone with OM. Separate skin and soft tissue with marked acute inflammation. -f/u podiatry and ID recs thereafter for oral ABx choices suitable for YOEL. - L foot xray: no signs of osteomyelitis, cellulitis present - Foot MRI 03/04 Marrow edema in 2nd proximal and middle phalanx consistent with osteo - Repeat wound cultures from 03/08 show MRSA - Urine cx negative - Final blood culture shows no growth after 5 days - Procalcitonin 0.07 Bradycardia HR into 30s Cardiology consulted in advance of surgery- Dr. Boggs f/u Hgba1c, lipid panel, Mg, Phos, TSH Per Dr. Boggs, patient cleared for surgery with podiatry Hx of Hypertension -Continue amlodipine and losartan. Losartan held per nursing due to bradycardia - will consider increasing Losartan if BP remains elevated tomorrow IVF discontinued, so will continue to monitor response to BP Hx of Pre-diabetes, Diabetic Peripheral Neuropathy - HgA1C 6.2 - Diabetes prevention and diet education - ISS-low DVT/GI PPx: - Heparin 5000 q8 - Protonix Dispo: SW/CM - YOEL when medically clear F/u ID recs thereafter for oral vs IV ABx choice suitable for YOEL placement F/u PT eval for strengthening Patient seen, case reviewed and plan approved by Dr. Gibbs. Sincere Aparicio, PGY-1 <Av Gibbs - Last Filed: 03/13/18 15:09> Objective - Vital Signs/Intake and Output Vital Signs (last 24 hours): Temp Pulse Resp BP Pulse Ox 97.5 F L 31 L 18 122/59 L 97 03/13/18 07:00 03/13/18 12:45 03/13/18 12:45 03/13/18 12:45 03/13/18 07:00 Intake and Output: 03/13/18 03/13/18 06:59 18:59 Output Total 1000 Balance -1000 - Medications Medications: Current Medications Acetaminophen (Tylenol 325mg Tab) 650 mg PO Q4H PRN PRN Reason: Pain, Mild (1-3) Amlodipine Besylate (Norvasc) 5 mg PO BID [facility] Last Admin: 03/13/18 09:25 Dose: Not Given Heparin Sodium (Porcine) (Heparin) 5,000 units SC Q8H [facility]; Protocol Last Admin: 03/12/18 10:11 Dose: 5,000 units Ceftaroline Fosamil 600 mg/ (Sodium Chloride) 100 mls @ 100 mls/hr IVPB Q12 [facility] Last Admin: 03/13/18 10:42 Dose: 100 mls/hr Insulin Human Regular (Humulin R Med) 0 units SC ACHS [facility]; Protocol Last Admin: 03/13/18 11:46 Dose: Not Given Losartan Potassium (Cozaar) 25 mg PO DAILY [facility] Last Admin: 03/13/18 09:25 Dose: Not Given Ondansetron HCl (Zofran Inj) 4 mg IVP ONCE PRN PRN Reason: Nausea/Vomiting Pantoprazole Sodium (Protonix Ec Tab) 20 mg PO 0600,1600 [facility] Last Admin: 03/13/18 05:12 Dose: 20 mg - Labs Labs: 03/13/18 06:30 03/13/18 06:30 PT 15.0 SECONDS (9.4-12.5) H 03/13/18 06:30 INR 1.30 03/13/18 06:30 APTT 38.5 Seconds (25.1-36.5) H 03/13/18 06:30 Attending/Attestation - Attestation I have personally seen and examined this patient.: Yes I have fully participated in the care of the patient.: Yes I have reviewed all pertinent clinical information, including history, physical exam and plan: Yes Notes (Text): 03/13/18 15:07 82 year old male with past medical history of PAD, COPD, hypertension, and chronic LE cellulitis who presented with complaint of left lower extremity cellulitis and gangrenous left 2nd distal phalanx. Foot MRI was consistent with 2nd proximal/middle phalanx osteomyelitis and wound culture grew MRSA. Patient is on IV antibiotics. ID and podiatry are following. He is s/p amputation of second digit POD #6. Pathology was reviewed as above. Patient is going for procedure with podiatry this afternoon. Preop EKG showed bradycardia. Patient is asymptomatic and not on beta randi. Case discussed with Dr. Boggs; ok to go for procedure later today. Av Gibbs MD Hospitalist.
--- NOTE | 2018-03-13 15:02 | CON ---
DATE: 03/13/2018 SERVICE: Cardiology. REASON FOR CONSULTATION: Cardiac evaluation for possible surgery, bradycardia, coronary artery disease, peripheral arterial disease. BRIEF CLINICAL HISTORY: This is an 82-year-old male with past medical history significant for peripheral arterial disease, dementia, hypertension, obesity, COPD, admitted with cellulitis of left lower extremity as well as left foot gangrene, status post amputation of left toe. EKG shows bradycardia. A preoperative evaluation and risk stratification, cardiology consult is called. The patient denies any chest pain, shortness of breath or any palpitation. PAST MEDICAL HISTORY: Significant for r peripheral arterial disease, cellulitis of lower extremity, hypertension, COPD, CAD, nephrolithiasis, cataract, hard of hearing, dementia, history of renal failure, history of rhabdomyolysis in the past. CURRENT MEDICATIONS: At home patient was taking losartan, amlodipine and aspirin. SOCIAL HISTORY: Ex-smoker. Denies any history of substance abuse. Denies any history of alcohol abuse in the past. ALLERGIES: NO KNOWN DRUG ALLERGY. PREVIOUS CARDIAC WORKUP: As follows: The patient had echocardiography done on 07/05/2016 that revealed ejection fraction 55%, trace aortic regurgitation, mild mitral regurgitation, trace to mild tricuspid regurgitation, RV systolic pressure 30. Previous EKG showed sinus rhythm, first-degree AV block, right bundle-branch block, inferior wall AL of undetermined age dated 02/28/2018. Prior EKG also in 07/08/2016 shows normal sinus rhythm, first-degree AV block, right bundle-branch block, inferior wall AL, no significant change from 07/08/2016. The patient had intervention procedure done by Dr. Bedolla. Ultrasound fluoroscopic PICC line on 07/04/2016. REVIEW OF SYSTEMS: As per HPI. PHYSICAL EXAMINATION: As follows: VITAL SIGNS: Height of the patient is 5 feet 10 inches, weight of the patient is 222 pounds, body mass index 31.9 kg/m2. Rest of the examination, temperature afebrile, heart rate 60, blood pressure 179/62. HEENT: PERRLA. Extraocular muscles intact. NECK: Supple. No carotid bruit or thyromegaly. CHEST: Clear to auscultation. HEART: S1, S2 regular. ABDOMEN: Soft. EXTREMITIES: Clubbing and cyanosis negative. Left foot is in dressing. LABORATORY DATA: Blood workup: WBC 7.3, hemoglobin 11, hematocrit 34.2, platelet count 213. Chemistry shows sodium 130, potassium 4, chloride 106, carbon dioxide 27, anion gap of 10, BUN 28, creatinine 1.3. IMPRESSION: An 82-year-old morbidly obese male with a past medical history significant for diabetes, hypertension, hyperlipidemia, peripheral arterial disease, admitted with gangrene of the toe, status post amputation, needs more surgical intervention. Cardiology consult was called for preop evaluation and for bradycardia. RECOMMENDATION: Follow up. Repeat EKG. Telemetry monitoring shows heart rate 60 now. At one point, the patient's heart rate was 40, though the patient is not on beta randi. Continue antibiotic. Continue DVT prophylaxis. Continue amlodipine. Continue Norvasc. Continue non-rate limiting calcium channel randi. We will get echo to assess LV function. Further recommendation depending on the hospital course. We will follow TSH and lipid profile. Thank you, Dr. Gibbs for providing us the opportunity of taking care of the patient, Amrik Harris. Yousif Boggs MD
[2018-03-13] MEDS ORDERED: Bupivacaine 0.5% 50 ML IJ ONE (18:31)
[2018-03-13] MEDS ORDERED: Lidocaine 2% Inj (20ml) ONE (18:31)
[2018-03-13] MEDS ORDERED: Midazolam 2 MG/2 ML VIAL ONE (18:37)
[2018-03-13] MEDS ORDERED: Propofol 10 mg/ml Inj (20 ML) ONE (18:38)
--- NOTE | 2018-03-13 18:47 | CARD ---
APPROVED REPORT Date of service: 03/13/2018 EKG Measurement Heart [id number] CT 162P [id number] <Conclusion> Marked sinus bradycardia Right bundle branch block T wave abnormality, consider lateral ischemia Abnormal ECG
--- NOTE | 2018-03-13 19:19 | CARD ---
APPROVED REPORT Date of service: 03/13/2018 EXAM: Two-dimensional and M-mode echocardiogram with Doppler and color Doppler. INDICATION Pre-Op LV Function:SystolicDiastolic 2D DIMENSIONS Left Atrium (2D)4.9 (1.6-4.0cm)IVSd1.2 (0.7-1.1cm) LVDd5.0 (3.9-5.9cm)PWd1.2 (0.7-1.1cm) LVDs3.6 (2.5-4.0cm)FS (%) 27.8 % LVEF (%)53.8 (>50%) M-Mode DIMENSIONS Aortic Root3.90 (2.2-3.7cm)Aortic Cusp Exc.1.50 (1.5-2.0cm) Aortic Valve AoV Peak Sbpoxzme988.0cm/Arnulfo Peak GR.10mmHg Mitral Valve MV E Pcbwuwhk32.3cm/sMV A Mkgqxqmx02.2cm/sE/A ratio0.9 TDI Lateral E' Peak V8.09cm/sMedial E' Peak V5.46cm/sE/Lateral E'11.3 E/Medial E'16.7 Pulmonary Valve PV Peak Dpmozvlx85.7cm/sPV Peak Grad.2mmHg Tricuspid Valve TR Peak Ppqencox103zw/sRAP QZOKZOYM77exAzBC Peak Gr.9mmHg [id number] LEFT VENTRICLE The left ventricle is normal size. There is borderline to mild concentric left ventricular hypertrophy. The left ventricular function is normal.EF-55% There is normal LV segmental wall motion. Transmitral Doppler flow pattern is Grade III-reversible restrictive diastolic dysfunction. No left ventricle thrombus noted on this study. There is no ventricular septal defect visualized. There is no left ventricular aneurysm. There is no mass noted in the left ventricle. RIGHT VENTRICLE The right ventricle is mildly to moderately dilated. The right ventricle is mildly hypertrophied. Systolic function of RV is mildly to moderately reduced. ATRIA The left atrium is mildly dilated. The right atrium is mildly dilated. The interatrial septum is intact with no evidence for an atrial septal defect. AORTIC VALVE The aortic valve is calcified and displays decreased opening.( non coronary Cusp is immobile) No aortic regurgitation is present. Aortic Sclerosis Vs Mild There is no aortic valvular vegetation. MITRAL VALVE The mitral valve is thickened but opens well. Mitral annular calcification is mild to moderate. Mitral regurgitation is trace to mild. There is no mitral valve stenosis. There is no evidence of mitral valve prolapse. TRICUSPID VALVE The tricuspid valve leaflets are thickened , but open well. There is trace tricuspid regurgitation. There is no tricuspid valve stenosis. There is no tricuspid valve prolapse or vegetation. PULMONIC VALVE The pulmonic valve is mildly thickened. There is mild to moderate pulmonic valvular regurgitation. There is no pulmonic valvular stenosis. GREAT VESSELS The aortic root is normal in size. The ascending aorta is normal in size. The pulmonary artery is normal. The IVC is normal in size and collapses >50% with inspiration. PERICARDIAL EFFUSION There is no pleural effusion. There is no pericardial effusion. <Conclusion> The left ventricle is normal size. There is borderline to mild concentric left ventricular hypertrophy. The left ventricular function is normal.EF-55% The right ventricle is mildly to moderately dilated. Systolic function of RV is mildly to moderately reduced. Aortic Sclerosis Vs Mild Mitral regurgitation is trace to mild. There is trace tricuspid regurgitation. There is mild to moderate pulmonic valvular regurgitation. The IVC is normal in size and collapses >50% with inspiration. There is no pericardial effusion. No Vegetation or thrombus noted.
[2018-03-13] MEDS ORDERED: Flumazenil 0.1 mg/ml Inj (5ml) IVP ONE (19:34)
[2018-03-13] MEDS ORDERED: Lactated Ringer's 1,000 ML IV SCH (19:45)
--- NOTE | 2018-03-13 19:46 | PCM.SURG1 ---
Surgeon's Initial Post Op Note - Surgeon's Notes Surgeon: Dr. Luis Carlos Almendarez. DPM Color Checker Roving Or Yarn: Dr. Sanju Ruelas. DPM/PGY1 Type of Anesthesia: IV Sedation, Local Anesthesia Administered By: Dr. Johnson Pre-Operative Diagnosis: L 4th toe infected ulcer with underlying OM 6 days S/P L 4th toe amputation. Operative Findings: See Dictation. Injectables: 10 cc mix of 2% lidocaine and 0.5% marcaine. Materials: 4-0 vicryl and 3-0 Nylon. Post-Operative Diagnosis: Same Operation Performed: Revision of L 4th toe amputation Specimen/Specimens Removed: Fragments of L 4t proximal phalanx. Deep tissue culture Estimated Blood Loss: EBL {In ML}: 1 Blood Products Given: N/A Drains Used: No Drains Post-Op Condition: Good Date of Surgery/Procedure: 03/13/18 Time of Surgery/Procedure: 19:47
--- NOTE | 2018-03-14 01:11 | PN ---
DATE: 03/13/2018 SUBJECTIVE: The patient is in bed, in no acute distress. PHYSICAL EXAMINATION: VITAL SIGNS: Temperature is 97, blood pressure is 160/70, respiratory rate is 16. HEENT: Unremarkable. NECK: Supple. LUNGS: Have decreased breath sounds. HEART: Normal S1, S2. ABDOMEN: Soft, nontender. No organomegaly. LABORATORY DATA: Reveals a white count of 7.3, hemoglobin of 11, BUN of 28, creatinine of 1.3, procalcitonin is 0.07. 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 The patient is for further debridement today. We will check on the pathology from that debridement today and currently on ceftaroline. We will check on the pathology report from today and we will make further recommendations. Wally Wylie MD Job # [id number]
--- NOTE | 2018-03-14 05:29 | OP ---
PROCEDURE DATE: 03/13/2018 SURGEON: Luis Carlos Almendarez DPM [employer] OPTICIAN: Kristin Ruelas MD LEAN CONSULTANT: Dr. Johnson. TYPE OF ANESTHESIA: IV sedation and local anesthesia. PREOPERATIVE DIAGNOSES: Six days status post left fourth toe amputation secondary to left fourth toe infected ulcers underlying osteomyelitis. POSTOPERATIVE DIAGNOSES: Six days status post left fourth toe amputation secondary to left fourth toe infected ulcers underlying osteomyelitis. PROCEDURE: Revision of left fourth toe amputation. INDICATION: The patient is an 82-year-old male with above diagnosis. The patient has exhausted all the conservative treatments at this time and now requests surgical intervention. The patient and both have signed the consent after careful explanation of risks, benefits, complication and alternative for surgical procedure. No guarantees were given nor implied. PREPARATION: The patient was brought to the operating room and placed on the operating table in a supine position. Time-out was performed for identification of the correct patient and the procedure. After induction of IV sedation, the patient received a total of 10 mL of 1:1 mixture of 0.5% Marcaine plain and 2% lidocaine plain in a local block type fashion to the left foot at the level of the fourth metatarsal bone. Once the local anesthesia was achieved, the left foot was then prepped and draped in a normal sterile manner. Blood was exsanguinated from the right foot using an Esmarch and ankle tourniquet was used to control the bleeding. Then the procedure began. DESCRIPTION OF PROCEDURE: Attention was then drawn to the left fourth region where approximately 5 cm incision from the previous surgery was noted. The skin and subcutaneous sutures removed using sterile 15 blade, then using sterile 15 blade and [place] scissors, removal of the bone fragments from the site of the previous surgery with debridement of extensor and flexor tendon up to the level of the distal fourth left shaft. Then using pulsed lavage, copious amount of sterile saline used to irrigate the surgical site. Closure of the amputation site using 4-0 Vicryl for subcutaneous layer and 3-0 nylon suture for the skin, in both horizontal mattress and simple suture fashion. Dressings were applied using Betadine, Adaptic, Kerlix, and Coban. POSTOPERATIVE CONDITION: The patient tolerated the anesthesia and the procedure well and was then escorted to the recovery room with vital signs stable and neurovascular status intact to the left lower extremity. Podiatry will continue to follow up the patient while he remains in-house. The patient will follow up with Dr. Almendarez at the wound care center upon discharge. KRISTIN RUELAS MD Luis Carlos Almendarez DPM MTDShahida
[2018-03-14] MEDS: Pantoprazole 20 mg EC Tab PO SCH ×2 (05:32→18:09)
[2018-03-14 07:06] LABS: BASO # 0.03 K/mm3 (0.0-2.0); BASO % 0.4 % (0.0-3.0); EOS # 0.3 (0.0-0.7); EOS % 3.7 % (1.5-5.0); GRAN # 6.15 (1.4-6.5); GRAN % 71.7 % (50.0-68.0); HEMOGLOBIN 11.3 g/dL (14.0-18.0); LYMPH # 1.2 (1.2-3.4); LYMPH % 13.8 % (22.0-35.0); MEAN CELL VOLUME 82.6 fl (80.0-105.0); MEAN CORPUSCULAR HEMOGLOBIN 26.6 pg (25.0-35.0); MEAN CORPUSCULAR HGB CONC 32.2 g/dl (31.0-37.0); MEAN PLATELET VOLUME 8.1 fl (7.0-11.0); MONO # 0.9 (0.1-0.6); MONO % 10.4 % (1.0-6.0); RBC 4.25 10^6/uL (3.5-6.1); RED CELL DISTRIBUTION WIDTH 13.5 % (11.5-14.5); WHITE BLOOD COUNT 8.6 10^3/uL (4.5-11.0)
[2018-03-14 07:14] LABS: ALBUMIN 3.3 g/dL (3.0-4.8); ALT/SGPT 20 U/L (7-56); AST/SGOT 27 U/L (17-59); BLOOD UREA NITROGEN 26 mg/dL (7-21); CALCIUM 9.1 mg/dL (8.4-10.5); GFR NON-AFRICAN AMERICAN 53; HDL CHOLESTEROL 25 mg/dL (29-60)
[2018-03-14 07:20] LABS: LDL CHOLESTEROL 76 mg/dL (0-129)
[2018-03-14] MEDS: Insulin Reg-MEDIUM-Coverage SC SCH ×3 (07:58→22:07)
[2018-03-14] MEDS: Ceftaroline 600 MG in Sodium Chloride 0.9% 100 ML IVPB SCH ×2 (11:45→21:45)
--- NOTE | 2018-03-14 12:21 | PN ---
DATE: 03/14/2018 REASON FOR CONSULTATION AND FOLLOWUP: Cardiac evaluation, possible surgery, bradycardiac, coronary artery disease and peripheral arterial disease. The patient denies any chest pain, shortness of breath any palpitation. PHYSICAL EXAMINATION: GENERAL: Not in apparent distress. VITAL SIGNS: As follows, temperature is afebrile, heart rate 42 and blood pressure 138/47. HEENT: PERRLA is intact. NECK: Supple. No carotid bruit or thyromegaly. CHEST: Clear to auscultation. HEART: S1 and S2, regular. ABDOMEN: Soft. EXTREMITIES: Clubbing and cyanosis negative. LABORATORY DATA: Blood workup, WBC 8.6, hemoglobin 11.3, hematocrit 35.1, and platelet count 202. Chemistry; sodium 130, potassium 4.1, chloride 106, , anion gap of 9, BUN 26, and creatinine 1.3. IMPRESSION: An 82-year-old male with past medical history of chronic obstructive pulmonary disease, hypertension, obesity, cellulitis of lower extremity, left toe gangrene status post osteomyelitis of the left foot, status post amputation. The patient was bradycardic, cardiac consult was called for Preoperative evaluation and risk stratification. The patient underwent amputation yesterday. Baseline, the patient is bradycardiac not on beta-randi, but hemodynamically remained stable. RECOMMENDATIONS: We will get repeat EKG today. We will get Holter monitor for 24 hours. Continue Losartan. Continue postoperative care. CVS status is stable. We will follow with you. The patient had echocardiography done yesterday as a preop and that revealed ejection fraction 55%, right ventricle is mild to moderately dilated, systolic function right ventricular moderately reduced, mild aortic stenosis versus aortic sclerosis, [id number] mitral regurgitation, trace tricuspid regurgitation. For risk stratification consider stress test as outpatient the patient is stable because the multiple risk factor of coronary artery disease. We will put Holter to assist need for pacemaker to see significant bradycardia or not for 24 hours. Further recommendation with Holter finding. Yousif Boggs MD
--- NOTE | 2018-03-14 12:27 | PN ---
DATE: 03/14/2018 SUBJECTIVE: An 82-year-old male seen status post day 1 revision of his left second partial ray amputation. The patient is resting comfortably. He has been afebrile, offers no complaints. The patient is being brought down for x-rays which were ordered last night and were not done. OBJECTIVE: VITAL SIGNS: Revealed temperature of 97.7, pulse rate of 42, blood pressure of 138/47, respiratory rate of 20. LABORATORY FINDINGS: Reveal white count of 8.6, hemoglobin of 11.3, hematocrit of 35.1, platelet count of 202. Most recent culture report reveals MRSA; however, new cultures were taken yesterday in the OR are awaiting results. Palpable pedal pulses noted bilaterally. Incision site on the left foot presents with all sutures intact. There is noted to be minimal edema and erythema. There is no drainage. There is no dehiscence. There is no signs of acute bacterial infection. ASSESSMENT: Status post day 1, revisional surgery of the left second ray resection. PLAN: The patient was examined, his wound was cleansed. New dressing consisting of Betadine-soaked Adaptic and a dry sterile dressing was applied. We are waiting new x-rays taken yesterday. We are awaiting culture and sensitivity as well as pathology report from the bone that was resected yesterday. At this point, his osteomyelitis has been eradicated. The previous bony resection at the most distal portion of the first metatarsal revealed no osteomyelitic activity and the bone fragment that was present was removed yesterday. We will plan on transfer to TCU with oral antibiotics, pending approval by Infectious Disease. We will await all microbiology and histology reports taken yesterday. Luis Carlos Almendarez DPM CODY
--- NOTE | 2018-03-14 12:38 | CP.PCM.PN ---
<Sincere Aparicio - Last Filed: 03/14/18 12:35> Subjective - Date & Time of Evaluation Date of Evaluation: 03/14/18 Time of Evaluation: 08:00 - Subjective Subjective: Sincere Aparicio PGY-1 Progress Note for Hospitalist Service Patient seen and evaluated at bedside. No acute complaints reported overnight. Patient states his pain is well controlled. He was able to tolerate out of bed to chair yesterday. Denies fevers, chills, chest pain, shortness of breath, abdominal pain. Denies left foot pain. POD#1 revision of 2nd toe amputation with bone fragment removal in L foot. Objective - Vital Signs/Intake and Output Vital Signs (last 24 hours): Temp Pulse Resp BP Pulse Ox 97.7 F 42 L 20 147/48 L 94 L 03/14/18 06:00 03/14/18 11:47 03/14/18 06:00 03/14/18 11:47 03/14/18 06:00 Intake and Output: 03/14/18 03/14/18 06:59 18:59 Intake Total 375 Output Total 1200 Balance -825 - Medications Medications: Current Medications Acetaminophen (Tylenol 325mg Tab) 650 mg PO Q4H PRN PRN Reason: Pain, Mild (1-3) Amlodipine Besylate (Norvasc) 5 mg PO BID [facility] Last Admin: 03/14/18 11:46 Dose: 5 mg Heparin Sodium (Porcine) (Heparin) 5,000 units SC Q8H [facility]; Protocol Last Admin: 03/12/18 10:11 Dose: 5,000 units Ceftaroline Fosamil 600 mg/ (Sodium Chloride) 100 mls @ 100 mls/hr IVPB Q12 [facility] Last Admin: 03/14/18 11:45 Dose: 100 mls/hr Insulin Human Regular (Humulin R Med) 0 units SC ACHS [facility]; Protocol Last Admin: 03/14/18 11:47 Dose: Not Given Losartan Potassium (Cozaar) 25 mg PO DAILY [facility] Last Admin: 03/14/18 11:47 Dose: 25 mg Ondansetron HCl (Zofran Inj) 4 mg IVP ONCE PRN PRN Reason: Nausea/Vomiting Ondansetron HCl (Zofran Inj) 4 mg IVP ONCE PRN PRN Reason: Nausea/Vomiting Pantoprazole Sodium (Protonix Ec Tab) 20 mg PO 0600,1600 [facility] Last Admin: 03/14/18 05:32 Dose: 20 mg - Labs Labs: 03/14/18 06:30 03/14/18 06:30 PT 15.0 SECONDS (9.4-12.5) H 03/13/18 06:30 INR 1.30 03/13/18 06:30 APTT 38.5 Seconds (25.1-36.5) H 03/13/18 06:30 - Additional Findings Additional findings: - Constitutional Appears: Well, Non-toxic, No Acute Distress - Head Exam Head Exam: ATRAUMATIC, NORMAL INSPECTION, NORMOCEPHALIC - Eye Exam Eye Exam: EOMI, Normal appearance - ENT Exam ENT Exam: Mucous Membranes Moist - Respiratory Exam Respiratory Exam: Clear to Ausculation Bilateral, NORMAL BREATHING PATTERN - Cardiovascular Exam Cardiovascular Exam: REGULAR RHYTHM, +S1, +S2 - GI/Abdominal Exam GI & Abdominal Exam: Soft, Normal Bowel Sounds. absent: Tenderness - Extremities Exam Extremities Exam: Pedal Edema (left lower extremity). absent: Calf Tenderness, Normal Inspection (left lower leg), Tenderness - Back Exam Back Exam: NORMAL INSPECTION - Neurological Exam Neurological Exam: Alert, Awake, Oriented x3. Remaining toes have poor sensation 2/2 diabetic peripheral neuropathy - Psychiatric Exam Psychiatric exam: Normal Affect, Normal Mood - Skin Skin Exam: absent: Normal Color Additional comments: amputated second metatarsal head of left foot - dressings c/d/i Assessment and Plan - Assessment and Plan (Free Text) Assessment: 82 y/o M with PMHx of peripheral artery disease, chronic LLE cellulitis, COPD, hypertension, dementia, obesity presents to [facility] [place] with complaints of LLE anterior tibial region cellulitis and gangrenous L foot 2nd distal phalanx. OM confirmed on MRI 03/04. Amputation of second digit AM 03/07. Currently pain controlled waiting on ID and podiatry recs. POD #6 of L 2nd toe amputation. POD #1 of revision of amputation with removal of bone fragment. 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 Almendarez - amputated second metatarsal head of left foot 03/08. OR 03/13 to excise the bone fragment from the amputation site - ID on consult - Dr. Wylie recs- at least 4-6 weeks of Ceftaroline with weekly ESR, CRP, CBC and CMP. ID recs regarding oral options pending - Ceftaroline day# 14 as per ID (CrCl >55; can continue with current abx dose). Path: margin report 03/12: Inflammatory process involves bone and soft tissue at resection margin. Separate bone with OM. Separate skin and soft tissue with marked acute inflammation. Podiatry: f/u x-rays, cultures, sensitivities, and path report. OM has been er adicated. Transfer to TCU with oral ABx - L foot xray: no signs of osteomyelitis, cellulitis present - Foot MRI 03/04 Marrow edema in 2nd proximal and middle phalanx consistent with osteo - Repeat wound cultures from 03/08 show MRSA - Urine cx negative - Final blood culture shows no growth after 5 days - Procalcitonin 0.07 Bradycardia HR paroxysmally drops into 30s, 41 lowest so far today while awake Cardiology consulted - Dr. Boggs Hgba1c 6.2 Lipid panel, Mg, Phos wnl TSH 3.92 Holter monitor to be placed for 24 hours to assess need for pacemaker - f/u findings Echo - EF 55% RV mild-moderate dialted, systolic function of R ventricle moderately reduced, mild , Mild MR. Consider stress test as outpatient Hx of Hypertension -Continue amlodipine and losartan IVF discontinued, so will continue to monitor response to BP Hx of Pre-diabetes, Diabetic Peripheral Neuropathy - HgA1C 6.2 - Diabetes prevention and diet education - ISS-low DVT/GI PPx: - Heparin 5000 q8 - Protonix Dispo: SW/CM - [facility] when medically clear Ortho - TCU with oral antibiotics pending ID recs F/u ID recs for oral vs IV ABx choice suitable for [facility]/TCU placement F/u PT eval for strengthening Patient seen, case reviewed and plan approved by Dr. Gibbs. Sincere Aparicio, PGY-1 <Av Gibbs - Last Filed: 03/14/18 13:03> Objective - Vital Signs/Intake and Output Vital Signs (last 24 hours): Temp Pulse Resp BP Pulse Ox 97.7 F 42 L 20 147/48 L 94 L 03/14/18 06:00 03/14/18 11:47 03/14/18 06:00 03/14/18 11:47 03/14/18 06:00 Intake and Output: 03/14/18 03/14/18 06:59 18:59 Intake Total 375 Output Total 1200 Balance -825 - Medications Medications: Current Medications Acetaminophen (Tylenol 325mg Tab) 650 mg PO Q4H PRN PRN Reason: Pain, Mild (1-3) Amlodipine Besylate (Norvasc) 5 mg PO BID [facility] Last Admin: 03/14/18 11:46 Dose: 5 mg Heparin Sodium (Porcine) (Heparin) 5,000 units SC Q8H [facility]; Protocol Last Admin: 03/12/18 10:11 Dose: 5,000 units Ceftaroline Fosamil 600 mg/ (Sodium Chloride) 100 mls @ 100 mls/hr IVPB Q12 [facility] Last Admin: 03/14/18 11:45 Dose: 100 mls/hr Insulin Human Regular (Humulin R Med) 0 units SC ACHS [facility]; Protocol Last Admin: 03/14/18 11:47 Dose: Not Given Losartan Potassium (Cozaar) 25 mg PO DAILY [facility] Last Admin: 03/14/18 11:47 Dose: 25 mg Ondansetron HCl (Zofran Inj) 4 mg IVP ONCE PRN PRN Reason: Nausea/Vomiting Ondansetron HCl (Zofran Inj) 4 mg IVP ONCE PRN PRN Reason: Nausea/Vomiting Pantoprazole Sodium (Protonix Ec Tab) 20 mg PO 0600,1600 [facility] Last Admin: 03/14/18 05:32 Dose: 20 mg - Labs Labs: 03/14/18 06:30 03/14/18 06:30 PT 15.0 SECONDS (9.4-12.5) H 03/13/18 06:30 INR 1.30 03/13/18 06:30 APTT 38.5 Seconds (25.1-36.5) H 03/13/18 06:30 Attending/Attestation - Attestation I have personally seen and examined this patient.: Yes I have fully participated in the care of the patient.: Yes I have reviewed all pertinent clinical information, including history, physical exam and plan: Yes Notes (Text): 03/14/18 12:57 82 year old male with past medical history of PAD, COPD, hypertension, and chronic LE cellulitis who presented with complaint of left lower extremity cellulitis and gangrenous left 2nd distal phalanx. Foot MRI was consistent with 2nd proximal/middle phalanx osteomyelitis and wound culture grew MRSA. Patient is on IV antibiotics. ID and podiatry are following. He is s/p amputation of second digit POD #7. Pathology was reviewed as above and patient went again to OR yesterday for further bone fragment excision at amputation site POD #1. Awaiting repeat pathology / cultures. Cardiology evaluation was appreciated for bradycardia. Patient is asymptomatic. Not on beta blockers. Echocardiogram was reviewed. He is on norvasc and cozaar for hypertension. Av Gibbs MD Hospitalist.
--- NOTE | 2018-03-14 14:24 | RAD ---
Date of service: 03/14/2018 PROCEDURE: Left Foot Radiographs. HISTORY: S/P L 4th toe amp COMPARISON: None. FINDINGS: BONES: There has been removal of the remainder of the 2nd toe since the previous exam. JOINTS: Degenerative changes are seen throughout the foot and ankle SOFT TISSUES: Normal. OTHER FINDINGS: None. IMPRESSION: As above
--- NOTE | 2018-03-14 16:32 | CP.PCM.PN ---
Subjective - Date & Time of Evaluation Date of Evaluation: 03/14/18 Time of Evaluation: 08:55 - Subjective Subjective: Had debridement again yesterday, no fevers, not in distress. Objective - Vital Signs/Intake and Output Vital Signs (last 24 hours): Temp Pulse Resp BP Pulse Ox 98.3 F 45 L 18 133/54 L 97 03/14/18 13:40 03/14/18 13:40 03/14/18 13:40 03/14/18 13:40 03/14/18 13:40 Intake and Output: 03/14/18 03/14/18 06:59 18:59 Intake Total 375 Output Total 1200 Balance -825 - Medications Medications: Current Medications Acetaminophen (Tylenol 325mg Tab) 650 mg PO Q4H PRN PRN Reason: Pain, Mild (1-3) Amlodipine Besylate (Norvasc) 5 mg PO BID [facility] Last Admin: 03/14/18 11:46 Dose: 5 mg Heparin Sodium (Porcine) (Heparin) 5,000 units SC Q8H [facility]; Protocol Last Admin: 03/12/18 10:11 Dose: 5,000 units Ceftaroline Fosamil 600 mg/ (Sodium Chloride) 100 mls @ 100 mls/hr IVPB Q12 [facility] Last Admin: 03/14/18 11:45 Dose: 100 mls/hr Insulin Human Regular (Humulin R Med) 0 units SC ACHS [facility]; Protocol Last Admin: 03/14/18 11:47 Dose: Not Given Losartan Potassium (Cozaar) 25 mg PO DAILY [facility] Last Admin: 03/14/18 11:47 Dose: 25 mg Ondansetron HCl (Zofran Inj) 4 mg IVP ONCE PRN PRN Reason: Nausea/Vomiting Ondansetron HCl (Zofran Inj) 4 mg IVP ONCE PRN PRN Reason: Nausea/Vomiting Pantoprazole Sodium (Protonix Ec Tab) 20 mg PO 0600,1600 [facility] Last Admin: 03/14/18 05:32 Dose: 20 mg - Labs Labs: 03/14/18 06:30 03/14/18 06:30 PT 15.0 SECONDS (9.4-12.5) H 03/13/18 06:30 INR 1.30 03/13/18 06:30 APTT 38.5 Seconds (25.1-36.5) H 03/13/18 06:30 - Constitutional Appears: Chronically Ill - Head Exam Head Exam: NORMAL INSPECTION - Respiratory Exam Respiratory Exam: Decreased Breath Sounds - Cardiovascular Exam Cardiovascular Exam: +S1, +S2 - GI/Abdominal Exam GI & Abdominal Exam: Soft. absent: Tenderness - Extremities Exam Additional comments: left foot with dressings in place Assessment and Plan - Assessment and Plan (Free Text) Plan: Assessment left leg and foot cellulitis and 2nd toe gangrene, with osteomyelitis with MRSA S/P amputation POD #5, S/P further debridement POD #1 - margins of bone still with osteomyelitis history of Group G strep bacteremia, probably secondary to bilateral lower extremities skin and skin structure infection; history of rhabdomyolysis CAD HTN chronic renal failure dementia obesity with BMI 32 Plan continue Teflaro and will need at least 4-6 weeks of antibiotics with weekly ESR, CRP, CBC, CMP to be followed by the wound care center while on antibiotics if the OR pathology from yesterday is still having osteomyelitis on the bone margins
[2018-03-15] MEDS: Pantoprazole 20 mg EC Tab PO SCH ×2 (05:23→16:50)
[2018-03-15 07:01] LABS: BASO # 0.03 K/mm3 (0.0-2.0); BASO % 0.4 % (0.0-3.0); EOS # 0.4 (0.0-0.7); EOS % 4.6 % (1.5-5.0); GRAN # 5.28 (1.4-6.5); GRAN % 65.4 % (50.0-68.0); HEMOGLOBIN 10.7 g/dL (14.0-18.0); LYMPH # 1.4 (1.2-3.4); LYMPH % 17.7 % (22.0-35.0); MEAN CELL VOLUME 82.4 fl (80.0-105.0); MEAN CORPUSCULAR HGB CONC 32.7 g/dl (31.0-37.0); MEAN PLATELET VOLUME 8.4 fl (7.0-11.0); MONO % 11.9 % (1.0-6.0); RBC 3.97 10^6/uL (3.5-6.1); RED CELL DISTRIBUTION WIDTH 13.7 % (11.5-14.5); WHITE BLOOD COUNT 8.1 10^3/uL (4.5-11.0)
[2018-03-15 07:28] LABS: ALBUMIN 3.3 g/dL (3.0-4.8); CALCIUM 8.9 mg/dL (8.4-10.5)
[2018-03-15] MEDS: Insulin Reg-MEDIUM-Coverage SC SCH ×4 (07:52→22:11)
--- NOTE | 2018-03-15 09:58 | CP.PCM.PN ---
Subjective - Date & Time of Evaluation Date of Evaluation: 03/15/18 Time of Evaluation: 06:55 - Subjective Subjective: Awake, alert, no distress Reason for consultation and follow up: Cardiac evaluation of bradycardia, status post revision of left 4th digit Seen and examined by me and Dr. Boggs Objective - Vital Signs/Intake and Output Vital Signs (last 24 hours): Temp Pulse Resp BP Pulse Ox 98.3 F 44 L 18 145/39 L 96 03/14/18 22:00 03/14/18 22:00 03/14/18 22:00 03/14/18 22:00 03/14/18 22:00 Intake and Output: 03/15/18 03/15/18 06:59 18:59 Intake Total 740 Output Total 400 Balance 340 - Medications Medications: Current Medications Acetaminophen (Tylenol 325mg Tab) 650 mg PO Q4H PRN PRN Reason: Pain, Mild (1-3) Amlodipine Besylate (Norvasc) 5 mg PO BID [facility] Last Admin: 03/14/18 18:09 Dose: 5 mg Heparin Sodium (Porcine) (Heparin) 5,000 units SC Q8H [facility]; Protocol Last Admin: 03/12/18 10:11 Dose: 5,000 units Ceftaroline Fosamil 600 mg/ (Sodium Chloride) 100 mls @ 100 mls/hr IVPB Q12 [facility] Last Admin: 03/14/18 21:45 Dose: 100 mls/hr Insulin Human Regular (Humulin R Med) 0 units SC ACHS [facility]; Protocol Last Admin: 03/15/18 07:52 Dose: Not Given Losartan Potassium (Cozaar) 25 mg PO DAILY [facility] Last Admin: 03/14/18 11:47 Dose: 25 mg Ondansetron HCl (Zofran Inj) 4 mg IVP ONCE PRN PRN Reason: Nausea/Vomiting Ondansetron HCl (Zofran Inj) 4 mg IVP ONCE PRN PRN Reason: Nausea/Vomiting Pantoprazole Sodium (Protonix Ec Tab) 20 mg PO 0600,1600 [facility] Last Admin: 03/15/18 05:23 Dose: Not Given - Labs Labs: 03/15/18 06:20 03/15/18 06:20 PT 15.0 SECONDS (9.4-12.5) H 03/13/18 06:30 INR 1.30 03/13/18 06:30 APTT 38.5 Seconds (25.1-36.5) H 03/13/18 06:30 - Constitutional Appears: Non-toxic, No Acute Distress - Head Exam Head Exam: NORMAL INSPECTION, NORMOCEPHALIC - Eye Exam Eye Exam: Normal appearance Pupil Exam: NORMAL ACCOMODATION - ENT Exam ENT Exam: Mucous Membranes Moist, Normal Exam - Respiratory Exam Respiratory Exam: Clear to Ausculation Bilateral, NORMAL BREATHING PATTERN - Cardiovascular Exam Cardiovascular Exam: +S1, +S2 - GI/Abdominal Exam GI & Abdominal Exam: Soft, Normal Bowel Sounds - Extremities Exam Additional comments: left foot dressing - Neurological Exam Neurological Exam: Alert, Awake, Oriented x3 - Psychiatric Exam Psychiatric exam: Normal Affect, Normal Mood - Skin Skin Exam: Dry, Normal Color, Warm Assessment and Plan - Assessment and Plan (Free Text) Assessment: An 82 year old male who wascame to the ER due to left toe wound. 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 Patient bradycardic and consult was called. Patient is not on betablocker. Placed on Holter monitor.Stress test as outpatient once better from toe surgery.Echo done.LVEF 55%,Aortic sclerosis Vs Mild As, mild mitral regurgitation,trace TR, moderate pulmonic valve regurgitation,no vegetation or thrombus. Plan: On Holter monitor x 24 hours, will follow up result No distress Stable blood pressure Heart rate 40's No Betablocker On Norvasc 5 mg BID Continue antibiotics as ordered Continue current treatment Continue current medications Will follow up Further recommendations during hospital course Plan and treatment discussed with Dr. Boggs
--- NOTE | 2018-03-15 10:31 | PQF ---
PROVIDER RESPONSE TEXT: Ckd 3 REVIEWER QUERY TEXT: Kidney Disease, Chronic CKD Stage Chronic Kidney Disease (CKD) is documented in the Medical Record. Please specify the disease stage ( includes probable or suspected) Such as: -- Chronic kidney disease Stage 1 -- Chronic kidney disease Stage 2 -- Chronic kidney disease Stage 3 -- Chronic kidney disease Stage 4 -- Chronic kidney disease Stage 5 -- Chronic kidney disease Stage 5, requiring dialysis -- End Stage Renal Disease -- Other, please specify Stages are defined by the [employer] as follows: CKD Stage I GFR >= 90 ml / min per 1.73 m2 and persistent albuminuria CKD Stage 2 GFR between 60 and 89 with persistent albuminuria CKD Stage 3 GFR between 30 and 59 CKD Stage 4 GFR between 15 and 29 CKD Stage 5 GFR between <15 or End Stage Renal Disease The patient's Clinical Indicators include: Patient with hx CKD per medical record. Admitted with elevated BUN, BUN/creatinine fluctuating throughout stay. Today BUN 36, creatinine 1.6. Please clarify if CKD is present and if so the stage of the CKD. Query created by: Caren Mcclelland on 03/15/2018 10:14 AM Electronically signed by: Av Gibbs MD 03/15/2018 10:28 AM
--- NOTE | 2018-03-15 11:20 | CP.PCM.PN ---
<Sincere Aparicio - Last Filed: 03/15/18 16:48> Subjective - Date & Time of Evaluation Date of Evaluation: 03/15/18 Time of Evaluation: 08:00 - Subjective Subjective: Sincere Aparicio PGY-1 Progress Note for Hospitalist Service Patient seen and evaluated at bedside. No acute complaints reported overnight. Patient states his pain is well controlled. He was able to tolerate out of bed to chair yesterday. Denies fevers, chills, chest pain, shortness of breath, abdominal pain. Denies left foot pain. POD #2 revision of 2nd toe amputation with bone fragment removal in L foot. Objective - Vital Signs/Intake and Output Vital Signs (last 24 hours): Temp Pulse Resp BP Pulse Ox 98.3 F 44 L 18 145/39 L 96 03/14/18 22:00 03/14/18 22:00 03/14/18 22:00 03/14/18 22:00 03/14/18 22:00 Intake and Output: 03/15/18 03/15/18 06:59 18:59 Intake Total 740 Output Total 400 Balance 340 - Medications Medications: Current Medications Acetaminophen (Tylenol 325mg Tab) 650 mg PO Q4H PRN PRN Reason: Pain, Mild (1-3) Amlodipine Besylate (Norvasc) 5 mg PO BID [facility] Last Admin: 03/14/18 18:09 Dose: 5 mg Heparin Sodium (Porcine) (Heparin) 5,000 units SC Q8H [facility]; Protocol Last Admin: 03/12/18 10:11 Dose: 5,000 units Ceftaroline Fosamil 600 mg/ (Sodium Chloride) 100 mls @ 100 mls/hr IVPB Q12 [facility] Last Admin: 03/14/18 21:45 Dose: 100 mls/hr Sodium Chloride (Sodium Chloride 0.9%) 1,000 mls @ 75 mls/hr IV .[id number] [facility] Stop: 03/16/18 06:00 Insulin Human Regular (Humulin R Med) 0 units SC ACHS [facility]; Protocol Last Admin: 03/15/18 07:52 Dose: Not Given Losartan Potassium (Cozaar) 25 mg PO DAILY [facility] Last Admin: 03/14/18 11:47 Dose: 25 mg Ondansetron HCl (Zofran Inj) 4 mg IVP ONCE PRN PRN Reason: Nausea/Vomiting Pantoprazole Sodium (Protonix Ec Tab) 20 mg PO 0600,1600 [facility] Last Admin: 03/15/18 05:23 Dose: Not Given - Labs Labs: 03/15/18 06:20 03/15/18 06:20 PT 15.0 SECONDS (9.4-12.5) H 03/13/18 06:30 INR 1.30 03/13/18 06:30 APTT 38.5 Seconds (25.1-36.5) H 03/13/18 06:30 - Additional Findings Additional findings: - Constitutional Appears: Well, Non-toxic, No Acute Distress - Head Exam Head Exam: ATRAUMATIC, NORMAL INSPECTION, NORMOCEPHALIC - Eye Exam Eye Exam: EOMI, Normal appearance - ENT Exam ENT Exam: Mucous Membranes Moist - Respiratory Exam Respiratory Exam: Clear to Ausculation Bilateral, NORMAL BREATHING PATTERN - Cardiovascular Exam Cardiovascular Exam: REGULAR RHYTHM, +S1, +S2 - GI/Abdominal Exam GI & Abdominal Exam: Soft, Normal Bowel Sounds. absent: Tenderness - Extremities Exam Extremities Exam: Pedal Edema (left lower extremity). absent: Calf Tenderness, Normal Inspection (left lower leg), Tenderness - Back Exam Back Exam: NORMAL INSPECTION - Neurological Exam Neurological Exam: Alert, Awake, Oriented x3. Remaining toes have poor sensation 2/2 diabetic peripheral neuropathy - Psychiatric Exam Psychiatric exam: Normal Affect, Normal Mood - Skin Skin Exam: absent: Normal Color Additional comments: amputated second metatarsal head of left foot - dressings c/d/i Assessment and Plan - Assessment and Plan (Free Text) Assessment: 82 y/o M with PMHx of peripheral artery disease, chronic LLE cellulitis, COPD, hypertension, dementia, obesity [place] [facility] [place] of LLE anterior tibial region cellulitis and gangrenous L foot 2nd distal phalanx. OM confirmed on MRI 03/04. Amputation of second digit AM 03/07. Currently pain controlled waiting on ID and podiatry recs. POD #7 of L 2nd toe amputation. POD #2 of revision of L 2nd toe amputation with removal of bone fragment. Awaiting podiatry input and cultures and sensitivities. 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 Arloro - amputated second metatarsal head of left foot 03/08. OR 03/13 to excise the bone fragment from the amputation site - ID on consult - Dr. Wylie recs- at least 4-6 weeks of Ceftaroline with weekly ESR, CRP, CBC and CMP. ID recs regarding oral options pending cultures and path report - Ceftaroline day# 15 as per ID (CrCl >55; can continue with current abx dose). Path: margin report 03/12: Inflammatory process involves bone and soft tissue at resection margin. Separate bone with OM. Separate skin and soft tissue with marked acute inflammation. Podiatry: f/u x-rays, cultures, sensitivities, and path report. OM has been eradicated. Possible transfer to TCU with oral ABx - L foot xray: no signs of osteomyelitis, cellulitis present - Foot MRI 03/04 Marrow edema in 2nd proximal and middle phalanx consistent with osteo - Repeat wound cultures from 03/08 show MRSA - Urine cx negative - Final blood culture shows no growth after 5 days - Procalcitonin 0.07 INEZ Cr up to 1.6, slightly elevated from baseline 1.3-1.4 Light hydration NS @ 75 cc/hr possibly 2/2 hypotensive episodes late Nephrotoxic Losartan held as BP controlled, continue to monitor BP and will evaluate BUN/Cr in AM Bradycardia HR paroxysmally drops into 30s at night Cardiology consulted - Dr. Boggs Hgba1c 6.2 Lipid panel, Mg, Phos wnl TSH 3.92 Holter monitor to be placed for 24 hours to assess need for pacemaker - f/u findings Echo - EF 55% RV mild-moderate dialted, systolic function of R ventricle moderately reduced, mild , Mild MR. Consider stress test as outpatient Hx of Hypertension -Continue amlodipine and losartan - Light hydration NS @ 75 cc/hr Hx of Pre-diabetes, Diabetic Peripheral Neuropathy - HgA1C 6.2 - Diabetes prevention and diet education - ISS-low DVT/GI PPx: - Heparin 5000 q8 - Protonix Dispo: SW/CM - [facility] when medically clear Ortho - TCU with oral antibiotics pending ID recs F/u ID recs for oral vs IV ABx choice suitable for [facility]/TCU placement F/u PT eval for strengthening Patient seen, case reviewed and plan approved by Dr. Gibsb. Sincere Aparicio, PGY-1 <Av Gibbs - Last Filed: 03/16/18 06:48> Objective - Vital Signs/Intake and Output Vital Signs (last 24 hours): Temp Pulse Resp BP Pulse Ox 98 F 54 L 18 145/58 L 96 03/15/18 22:41 03/16/18 00:30 03/15/18 22:41 03/16/18 00:30 03/15/18 22:41 Intake and Output: 03/15/18 03/16/18 18:59 06:59 Intake Total 860 Output Total 1410 Balance -550 - Medications Medications: Current Medications Acetaminophen (Tylenol 325mg Tab) 650 mg PO Q4H PRN PRN Reason: Pain, Mild (1-3) Amlodipine Besylate (Norvasc) 5 mg PO BID [facility] Last Admin: 03/15/18 19:12 Dose: 5 mg Heparin Sodium (Porcine) (Heparin) 5,000 units SC Q8H [facility]; Protocol Last Admin: 03/12/18 10:11 Dose: 5,000 units Ceftaroline Fosamil 600 mg/ (Sodium Chloride) 100 mls @ 100 mls/hr IVPB Q12 [facility] Last Admin: 03/15/18 22:12 Dose: 100 mls/hr Insulin Human Regular (Humulin R Med) 0 units SC ACHS [facility]; Protocol Last Admin: 03/15/18 22:11 Dose: Not Given Losartan Potassium (Cozaar) 25 mg PO DAILY [facility] Last Admin: 03/14/18 11:47 Dose: 25 mg Ondansetron HCl (Zofran Inj) 4 mg IVP ONCE PRN PRN Reason: Nausea/Vomiting Pantoprazole Sodium (Protonix Ec Tab) 20 mg PO 0600,1600 [facility] Last Admin: 03/16/18 05:45 Dose: 20 mg - Labs Labs: 03/15/18 06:20 03/15/18 06:20 PT 15.0 SECONDS (9.4-12.5) H 03/13/18 06:30 INR 1.30 03/13/18 06:30 APTT 38.5 Seconds (25.1-36.5) H 03/13/18 06:30 Attending/Attestation - Attestation I have personally seen and examined this patient.: Yes I have fully participated in the care of the patient.: Yes I have reviewed all pertinent clinical information, including history, physical exam and plan: Yes Notes (Text): 03/15/18 82 year old male with past medical history of PAD, COPD, hypertension, and chronic LE cellulitis who presented with complaint of left lower extremity cellulitis and gangrenous left 2nd distal phalanx. Foot MRI was consistent with 2nd proximal/middle phalanx osteomyelitis and wound culture grew MRSA. Patient is on IV antibiotics. ID and podiatry are following. He is s/p amputation of second digit POD #8. Pathology was reviewed as above and patient went again to OR earlier this week for further bone fragment excision at amputation site POD #2. Pathology was reviewed. Repeat cultures are pending. Cardiology is following for bradycardia. Patient is asymptomatic. Not on beta blockers. Holter applied. Echocardiogram was reviewed. Consider outpatient stress test. He is on norvasc and cozaar for hypertension. Av Gibbs MD Hospitalist.
[2018-03-15] MEDS: Sodium Chloride 0.9% 1,000 ML IV SCH (11:27)
[2018-03-15] MEDS: Ceftaroline 600 MG in Sodium Chloride 0.9% 100 ML IVPB SCH ×2 (11:28→22:12)
--- NOTE | 2018-03-15 15:18 | CP.PCM.PN ---
<Sanju Ruelas - Last Filed: 03/15/18 15:10> Subjective - Date & Time of Evaluation Date of Evaluation: 03/15/18 Time of Evaluation: 15:10 - Subjective Subjective: Podiatry progress note for Dr. Hay 82 y/o M patient seen and evaluated at the bedside 2 days S/P revision of left second digit amputation with met head resection. Patient was resting comfortably and NAD. He denies any pain to surgical site. Denies any acute events overnight. Patient denies N/V/F/C/SOB/CP and has no other pedal complaints at this time. Objective - Vital Signs/Intake and Output Vital Signs (last 24 hours): Temp Pulse Resp BP Pulse Ox 100.3 F H 124 H 20 115/47 L 98 03/15/18 14:00 03/15/18 14:00 03/15/18 14:00 03/15/18 14:00 03/15/18 14:00 Intake and Output: 03/15/18 03/15/18 06:59 18:59 Intake Total 740 Output Total 400 Balance 340 - Medications Medications: Current Medications Acetaminophen (Tylenol 325mg Tab) 650 mg PO Q4H PRN PRN Reason: Pain, Mild (1-3) Amlodipine Besylate (Norvasc) 5 mg PO BID [facility] Last Admin: 03/15/18 11:35 Dose: 5 mg Heparin Sodium (Porcine) (Heparin) 5,000 units SC Q8H [facility]; Protocol Last Admin: 03/12/18 10:11 Dose: 5,000 units Ceftaroline Fosamil 600 mg/ (Sodium Chloride) 100 mls @ 100 mls/hr IVPB Q12 [facility] Last Admin: 03/15/18 11:28 Dose: 100 mls/hr Sodium Chloride (Sodium Chloride 0.9%) 1,000 mls @ 75 mls/hr IV .[id number] [facility] Stop: 03/16/18 06:00 Last Admin: 03/15/18 11:27 Dose: 75 mls/hr Insulin Human Regular (Humulin R Med) 0 units SC ACHS [facility]; Protocol Last Admin: 03/15/18 11:28 Dose: Not Given Losartan Potassium (Cozaar) 25 mg PO DAILY [facility] Last Admin: 03/14/18 11:47 Dose: 25 mg Ondansetron HCl (Zofran Inj) 4 mg IVP ONCE PRN PRN Reason: Nausea/Vomiting Pantoprazole Sodium (Protonix Ec Tab) 20 mg PO 0600,1600 [facility] Last Admin: 03/15/18 05:23 Dose: Not Given - Labs Labs: 03/15/18 06:20 03/15/18 06:20 PT 15.0 SECONDS (9.4-12.5) H 03/13/18 06:30 INR 1.30 03/13/18 06:30 APTT 38.5 Seconds (25.1-36.5) H 03/13/18 06:30 - Constitutional Appears: Well, Non-toxic, No Acute Distress - Head Exam Head Exam: ATRAUMATIC, NORMOCEPHALIC - Extremities Exam Additional comments: Left lower extremities exam: Dressing was C/D/I. Dressing left intact. Vasc: Cap refill < 3 sec to the remaining digits. Neuro: Protective sensation diminished. - Neurological Exam Neurological Exam: Alert, Awake, Oriented x3 Assessment and Plan - Assessment and Plan (Free Text) Assessment: 82 y/o M patient seen and evaluated at the bedside 2 days S/P revision of left second digit amputation with met head resection Plan: Patient seen and evaluated at bedside. Discussed in detail with Dr. Hay Charts, labs ad vitals reviewed; Afebrile, absent leukocytosis Post operative left foot X-ray: small, tiny fragments of bone at the surgical site Dressing was C/D/I. Dressing left intact. Wound cx 03/08 - MRSA Continue IV Abx per ID Patient will need 4 weeks of IV Abx Pathology postop - fagments of bone with focal acute OM, fragments of fibrodense tissue with fibroconnective tissue . Continue pain management as needed Patient seen by PT and evaluated - recommend [facility] for continued skilled PT and management. Podiatry will continue to follow up the patient while in house <Megan Hay - Last Filed: 03/16/18 14:40> Objective - Vital Signs/Intake and Output Vital Signs (last 24 hours): Temp Pulse Resp BP Pulse Ox 97.1 F L 54 L 18 158/58 H 96 03/16/18 06:00 03/16/18 06:00 03/16/18 06:00 03/16/18 06:00 03/16/18 06:00 Intake and Output: 03/16/18 03/16/18 06:59 18:59 Intake Total 860 Output Total 1410 Balance -550 - Medications Medications: Current Medications Acetaminophen (Tylenol 325mg Tab) 650 mg PO Q4H PRN PRN Reason: Pain, Mild (1-3) Amlodipine Besylate (Norvasc) 5 mg PO BID [facility] Last Admin: 03/16/18 09:41 Dose: 5 mg Heparin Sodium (Porcine) (Heparin) 5,000 units SC Q8H [facility]; Protocol Last Admin: 03/12/18 10:11 Dose: 5,000 units Ceftaroline Fosamil 600 mg/ (Sodium Chloride) 100 mls @ 100 mls/hr IVPB Q12 [facility] Last Admin: 03/16/18 09:41 Dose: 100 mls/hr Insulin Human Regular (Humulin R Med) 0 units SC ACHS [facility]; Protocol Last Admin: 03/16/18 11:50 Dose: Not Given Losartan Potassium (Cozaar) 25 mg PO DAILY [facility] Last Admin: 03/14/18 11:47 Dose: 25 mg Ondansetron HCl (Zofran Inj) 4 mg IVP ONCE PRN PRN Reason: Nausea/Vomiting Pantoprazole Sodium (Protonix Ec Tab) 20 mg PO 0600,1600 [facility] Last Admin: 03/16/18 05:45 Dose: 20 mg - Labs Labs: 03/16/18 06:45 03/16/18 06:45 PT 15.0 SECONDS (9.4-12.5) H 03/13/18 06:30 INR 1.30 03/13/18 06:30 APTT 38.5 Seconds (25.1-36.5) H 03/13/18 06:30 Attending/Attestation - Attestation I have personally seen and examined this patient.: Yes I have fully participated in the care of the patient.: Yes I have reviewed all pertinent clinical information, including history, physical exam and plan: Yes Notes (Text): 03/16/18 14:38 pt seen in no distriss dressing CDI; review of xrays shows some residual small fragments of bone and the pathology revealed the extruded bones were OM thus pt will need IV antibiotics as per ID; PICC line ordered; case discussed with Dr Almendarez
--- NOTE | 2018-03-15 18:37 | PN ---
DATE: 03/15/2018 REASON FOR CONSULTATION: Followup, cardiac evaluation, bradycardia, status post revision of the fourth digit. SUBJECTIVE: The patient denies any chest pain, shortness of breath or any palpitation. No complaint of chest pain noted. Heart rate is 40, blood pressure is 108/63. This note is in addition to dictated by the nurse practitioner, Alejandrina Astorga. Echo done, ejection fraction 25%, mild aortic regurgitation, mild mitral regurgitation, trace TR, moderate pulmonary insufficiency. No vegetation or thrombus noted. Holter in progress; we will follow the result of the Holter. The patient is not on beta-randi. Continue Norvasc. Further recommendation will be made during the hospital course and Holter finding. We will follow with you. Thank you Dr. Gibbs for providing us the opportunity in taking care of the patient, Amrik Harris. Yousif Boggs MD
--- NOTE | 2018-03-15 19:07 | PN ---
DATE: 03/15/2018 SUBJECTIVE: The patient seen earlier this morning in 562, bed 1. The patient is in bed, no acute distress, nontoxic. PHYSICAL EXAMINATION: VITAL SIGNS: Temperature is 97, blood pressure is 120/40, respiratory rate of 18. HEENT: Unremarkable. NECK: Supple. LUNGS: Have decreased breath sounds. HEART: Normal S1, S2. ABDOMEN: Soft, nontender. LABORATORY EXAMINATION: Reveals a white count of 8.1, hemoglobin is 10, platelets are 185. Chemistries reveal creatinine is 1.6, has increased from 1.3. Microbiology reveals the MRSA from the toe culture, both the first culture and the repeat culture. Review of orders reveals the patient is on ceftaroline. Case discussed with Dr. Hay and the bone pathology is reviewed. ASSESSMENT AND PLAN: An 82-year-old male with a left leg and left foot cellulitis, second toe gangrene, osteomyelitis, status post amputation, post procedure day #6, and another debridement yesterday and case discussed with Dr. Hay who states that there is still infected bone, recommends treatment as osteomyelitis. We will treat 4-6 weeks of Teflaro with weekly CBC, SMA-18, sed rate, C-reactive protein. Wally Wylie MD
[2018-03-16] MEDS: Sodium Chloride 0.9% 1,000 ML IV SCH (03:00)
[2018-03-16] MEDS: Pantoprazole 20 mg EC Tab PO SCH ×2 (05:45→18:13)
[2018-03-16 07:28] LABS: BASO # 0.03 K/mm3 (0.0-2.0); BASO % 0.4 % (0.0-3.0); EOS # 0.4 (0.0-0.7); EOS % 5.3 % (1.5-5.0); GRAN # 5.32 (1.4-6.5); GRAN % 66.9 % (50.0-68.0); HEMOGLOBIN 10.8 g/dL (14.0-18.0); LYMPH # 1.5 (1.2-3.4); LYMPH % 18.2 % (22.0-35.0); MEAN CORPUSCULAR HEMOGLOBIN 26.6 pg (25.0-35.0); MEAN CORPUSCULAR HGB CONC 32.4 g/dl (31.0-37.0); MEAN PLATELET VOLUME 8.8 fl (7.0-11.0); MONO # 0.7 (0.1-0.6); MONO % 9.2 % (1.0-6.0); RBC 4.06 10^6/uL (3.5-6.1); RED CELL DISTRIBUTION WIDTH 13.7 % (11.5-14.5)
[2018-03-16 07:45] LABS: ALBUMIN 3.4 g/dL (3.0-4.8); ALT/SGPT 19 U/L (7-56); AST/SGOT 31 U/L (17-59); BLOOD UREA NITROGEN 33 mg/dL (7-21); CALCIUM 8.8 mg/dL (8.4-10.5); GFR NON-AFRICAN AMERICAN 53
--- NOTE | 2018-03-16 07:52 | CP.PCM.PN ---
Subjective - Date & Time of Evaluation Date of Evaluation: 03/16/18 Time of Evaluation: 06:45 - Subjective Subjective: Awake, alert, no distress, denies chest pain or shortness of breath Reason for consultation and follow up: Cardiac evaluation of bradycardia, status post revision of left 4th digit Seen and examined by me and Dr. Boggs Objective - Vital Signs/Intake and Output Vital Signs (last 24 hours): Temp Pulse Resp BP Pulse Ox 98 F 54 L 18 145/58 L 96 03/15/18 22:41 03/16/18 00:30 03/15/18 22:41 03/16/18 00:30 03/15/18 22:41 Intake and Output: 03/16/18 03/16/18 06:59 18:59 Intake Total 860 Output Total 1410 Balance -550 - Medications Medications: Current Medications Acetaminophen (Tylenol 325mg Tab) 650 mg PO Q4H PRN PRN Reason: Pain, Mild (1-3) Amlodipine Besylate (Norvasc) 5 mg PO BID [facility] Last Admin: 03/15/18 19:12 Dose: 5 mg Heparin Sodium (Porcine) (Heparin) 5,000 units SC Q8H [facility]; Protocol Last Admin: 03/12/18 10:11 Dose: 5,000 units Ceftaroline Fosamil 600 mg/ (Sodium Chloride) 100 mls @ 100 mls/hr IVPB Q12 [facility] Last Admin: 03/15/18 22:12 Dose: 100 mls/hr Insulin Human Regular (Humulin R Med) 0 units SC ACHS [facility]; Protocol Last Admin: 03/15/18 22:11 Dose: Not Given Losartan Potassium (Cozaar) 25 mg PO DAILY [facility] Last Admin: 03/14/18 11:47 Dose: 25 mg Ondansetron HCl (Zofran Inj) 4 mg IVP ONCE PRN PRN Reason: Nausea/Vomiting Pantoprazole Sodium (Protonix Ec Tab) 20 mg PO 0600,1600 [facility] Last Admin: 03/16/18 05:45 Dose: 20 mg - Labs Labs: 03/16/18 06:45 03/16/18 06:45 PT 15.0 SECONDS (9.4-12.5) H 03/13/18 06:30 INR 1.30 03/13/18 06:30 APTT 38.5 Seconds (25.1-36.5) H 03/13/18 06:30 - Constitutional Appears: Non-toxic, No Acute Distress - Head Exam Head Exam: NORMAL INSPECTION, NORMOCEPHALIC - Eye Exam Eye Exam: Normal appearance Pupil Exam: NORMAL ACCOMODATION - ENT Exam ENT Exam: Mucous Membranes Moist, Normal Exam - Respiratory Exam Respiratory Exam: Clear to Ausculation Bilateral, NORMAL BREATHING PATTERN - Cardiovascular Exam Cardiovascular Exam: +S1, +S2 - GI/Abdominal Exam GI & Abdominal Exam: Soft, Normal Bowel Sounds - Extremities Exam Extremities Exam: Full ROM Additional comments: left foot dressing - Neurological Exam Neurological Exam: Alert, Awake, Oriented x3 - Psychiatric Exam Psychiatric exam: Normal Affect, Normal Mood - Skin Skin Exam: Dry, Normal Color, Warm Assessment and Plan - Assessment and Plan (Free Text) Assessment: An 82 year old male who wascame to the ER due to left toe wound. 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 Patient bradycardic and consult was called. Patient is not on betablocker. Placed on Holter monitor.Stress test as outpatient once better from toe surgery.Echo done.LVEF 55%,Aortic sclerosis Vs Mild As, mild mitral regurgitation,trace TR, moderate pulmonic valve regurgitation,no vegetation or thrombus. Continue Holter monitor. Plan: Status post revision of left toe No distress, denies shortness of breath Initial placement of Holter unable to capture, so on Holter monitor x 24 hours, will follow up result No distress Stable blood pressure Heart rate 40's No Betablocker On Norvasc 5 mg BID Continue antibiotics as ordered Continue current treatment Continue current medications Will follow up Plan and treatment discussed with Dr. Boggs
[2018-03-16] MEDS: Insulin Reg-MEDIUM-Coverage SC SCH ×4 (08:15→22:19)
[2018-03-16] MEDS: Ceftaroline 600 MG in Sodium Chloride 0.9% 100 ML IVPB SCH ×2 (09:41→22:19)
--- NOTE | 2018-03-16 14:05 | CP.PCM.PN ---
Subjective - Date & Time of Evaluation Date of Evaluation: 03/16/18 Time of Evaluation: 09:20 - Subjective Subjective: No fevers, no increased pain in the left foot, no nausea. No diarrhea. Objective - Vital Signs/Intake and Output Vital Signs (last 24 hours): Temp Pulse Resp BP Pulse Ox 97.1 F L 54 L 18 158/58 H 96 03/16/18 06:00 03/16/18 06:00 03/16/18 06:00 03/16/18 06:00 03/16/18 06:00 Intake and Output: 03/16/18 03/16/18 06:59 18:59 Intake Total 860 Output Total 1410 Balance -550 - Medications Medications: Current Medications Acetaminophen (Tylenol 325mg Tab) 650 mg PO Q4H PRN PRN Reason: Pain, Mild (1-3) Amlodipine Besylate (Norvasc) 5 mg PO BID [facility] Last Admin: 03/16/18 09:41 Dose: 5 mg Heparin Sodium (Porcine) (Heparin) 5,000 units SC Q8H [facility]; Protocol Last Admin: 03/12/18 10:11 Dose: 5,000 units Ceftaroline Fosamil 600 mg/ (Sodium Chloride) 100 mls @ 100 mls/hr IVPB Q12 [facility] Last Admin: 03/16/18 09:41 Dose: 100 mls/hr Insulin Human Regular (Humulin R Med) 0 units SC ACHS [facility]; Protocol Last Admin: 03/16/18 11:50 Dose: Not Given Losartan Potassium (Cozaar) 25 mg PO DAILY [facility] Last Admin: 03/14/18 11:47 Dose: 25 mg Ondansetron HCl (Zofran Inj) 4 mg IVP ONCE PRN PRN Reason: Nausea/Vomiting Pantoprazole Sodium (Protonix Ec Tab) 20 mg PO 0600,1600 [facility] Last Admin: 03/16/18 05:45 Dose: 20 mg - Labs Labs: 03/16/18 06:45 03/16/18 06:45 PT 15.0 SECONDS (9.4-12.5) H 03/13/18 06:30 INR 1.30 03/13/18 06:30 APTT 38.5 Seconds (25.1-36.5) H 03/13/18 06:30 - Constitutional Appears: Chronically Ill - Head Exam Head Exam: NORMAL INSPECTION - Neck Exam Neck Exam: absent: Meningismus - Respiratory Exam Respiratory Exam: Decreased Breath Sounds - Cardiovascular Exam Cardiovascular Exam: +S1, +S2 - GI/Abdominal Exam GI & Abdominal Exam: Soft. absent: Tenderness - Extremities Exam Additional comments: left foot with dressings in place Assessment and Plan - Assessment and Plan (Free Text) Plan: Assessment left leg and foot cellulitis and 2nd toe gangrene, with osteomyelitis with MRSA S/P amputation POD #7, S/P further debridement POD #3 - margins of bone still with osteomyelitis even on latest debridement history of Group G strep bacteremia, probably secondary to bilateral lower extremities skin and skin structure infection; history of rhabdomyolysis CAD HTN chronic renal failure dementia obesity with BMI 32 Plan continue Teflaro and will need at least 4-6 weeks of antibiotics with weekly ESR, CRP, CBC, CMP to be followed by the wound care center while on antibiotics - discussed with Dr. Almendarez
--- NOTE | 2018-03-16 15:06 | CP.PCM.PN ---
<Sincere Aparicio - Last Filed: 03/16/18 14:59> Subjective - Date & Time of Evaluation Date of Evaluation: 03/16/18 Time of Evaluation: 07:40 - Subjective Subjective: Sincere Aparicio PGY-1 Progress Note for Hospitalist Service Patient seen and evaluated at bedside. No acute complaints reported overnight. Patient states his pain is well controlled. He was able to tolerate out of bed to chair yesterday. Denies fevers, chills, chest pain, shortness of breath, abdominal pain. Denies left foot pain. POD #3 revision of 2nd toe amputation with bone fragment removal in L foot. Objective - Vital Signs/Intake and Output Vital Signs (last 24 hours): Temp Pulse Resp BP Pulse Ox 97.6 F 43 L 20 144/86 96 03/16/18 14:00 03/16/18 14:00 03/16/18 14:00 03/16/18 14:00 03/16/18 14:00 Intake and Output: 03/16/18 03/16/18 06:59 18:59 Intake Total 860 Output Total 1410 Balance -550 - Medications Medications: Current Medications Acetaminophen (Tylenol 325mg Tab) 650 mg PO Q4H PRN PRN Reason: Pain, Mild (1-3) Amlodipine Besylate (Norvasc) 5 mg PO BID [facility] Last Admin: 03/16/18 09:41 Dose: 5 mg Heparin Sodium (Porcine) (Heparin) 5,000 units SC Q8H [facility]; Protocol Last Admin: 03/12/18 10:11 Dose: 5,000 units Ceftaroline Fosamil 600 mg/ (Sodium Chloride) 100 mls @ 100 mls/hr IVPB Q12 [facility] Last Admin: 03/16/18 09:41 Dose: 100 mls/hr Insulin Human Regular (Humulin R Med) 0 units SC ACHS [facility]; Protocol Last Admin: 03/16/18 11:50 Dose: Not Given Losartan Potassium (Cozaar) 25 mg PO DAILY [facility] Last Admin: 03/14/18 11:47 Dose: 25 mg Ondansetron HCl (Zofran Inj) 4 mg IVP ONCE PRN PRN Reason: Nausea/Vomiting Pantoprazole Sodium (Protonix Ec Tab) 20 mg PO 0600,1600 [facility] Last Admin: 03/16/18 05:45 Dose: 20 mg - Labs Labs: 03/16/18 06:45 03/16/18 06:45 PT 15.0 SECONDS (9.4-12.5) H 03/13/18 06:30 INR 1.30 03/13/18 06:30 APTT 38.5 Seconds (25.1-36.5) H 03/13/18 06:30 - Additional Findings Additional findings: - Constitutional Appears: Well, Non-toxic, No Acute Distress - Head Exam Head Exam: ATRAUMATIC, NORMAL INSPECTION, NORMOCEPHALIC - Eye Exam Eye Exam: EOMI, Normal appearance - ENT Exam ENT Exam: Mucous Membranes Moist - Respiratory Exam Respiratory Exam: Clear to Ausculation Bilateral, NORMAL BREATHING PATTERN - Cardiovascular Exam Cardiovascular Exam: REGULAR RHYTHM, +S1, +S2 - GI/Abdominal Exam GI & Abdominal Exam: Soft, Normal Bowel Sounds. absent: Tenderness - Extremities Exam Extremities Exam: Pedal Edema (left lower extremity). absent: Calf Tenderness, Normal Inspection (left lower leg), Tenderness - Back Exam Back Exam: NORMAL INSPECTION - Neurological Exam Neurological Exam: Alert, Awake, Oriented x3. Remaining toes have poor sensation 2/2 diabetic peripheral neuropathy - Psychiatric Exam Psychiatric exam: Normal Affect, Normal Mood - Skin Skin Exam: absent: Normal Color Additional comments: amputated second metatarsal head of left foot - dressings c/d/i Assessment and Plan - Assessment and Plan (Free Text) Assessment: 82 y/o M with PMHx of peripheral artery disease, chronic LLE cellulitis, COPD, hypertension, dementia, obesity presents to [facility] with complaints of LLE anterior tibial region cellulitis and gangrenous L foot 2nd distal phalanx. OM confirmed on MRI 03/04. Amputation of second digit AM 03/07. Currently pain controlled waiting on ID and podiatry recs. POD #7 of L 2nd toe amputation. POD #2 of revision of L 2nd toe amputation with removal of bone fragment. Awaiting podiatry input and cultures and sensitivities. 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 Almendarez - amputated second metatarsal head of left foot 03/08. OR 03/13 to excise the bone fragment from the amputation site - ID on consult - Dr. Wylie recs- at least 4-6 weeks of Ceftaroline with weekly ESR, CRP, CBC and CMP. ID recs regarding oral options pending cultures and path report PICC line placed 03/16 - Ceftaroline day# 16 as per ID (CrCl >55; can continue with current abx dose). Path: margin report 03/12: Inflammatory process involves bone and soft tissue at resection margin. Separate bone with OM. Separate skin and soft tissue with marked acute inflammation. Podiatry: f/u x-rays, cultures, sensitivities, and path report. OM has been eradicated. - L foot xray: no signs of osteomyelitis, cellulitis present - Foot MRI 03/04 Marrow edema in 2nd proximal and middle phalanx consistent with osteo - Repeat wound cultures from 03/08 show MRSA - Urine cx negative - Final blood culture shows no growth after 5 days - Procalcitonin 0.07 INEZ - resolved Cr up to 1.6, today back to baseline 1.3 Light hydration NS @ 75 cc/hr discontinued possibly 2/2 hypotensive episodes late Nephrotoxic Losartan held as BP controlled, continue to monitor BP and will evaluate BUN/Cr in AM Bradycardia HR paroxysmally drops into 30s at night Cardiology consulted - Dr. Boggs Hgba1c 6.2 Lipid panel, Mg, Phos wnl TSH 3.92 Holter monitor to be placed for 24 hours to assess need for pacemaker - f/u findings Echo - EF 55% RV mild-moderate dilated, systolic function of R ventricle moderately reduced, mild , Mild MR. Consider stress test as outpatient Hx of Hypertension -Continue amlodipine and losartan - Light hydration NS @ 75 cc/hr Hx of Pre-diabetes, Diabetic Peripheral Neuropathy - HgA1C 6.2 - Diabetes prevention and diet education - ISS-low DVT/GI PPx: - Heparin 5000 q8 - Protonix Dispo: SW/CM - Pt Sofia who stated that she cannot make decision at present if [facility] vs Home ivab infusion She will reach out to her daughter. Patient already accepted by [facility], and [facility] that can accomodate iv Teflaro. F/u PT eval for strengthening Patient seen, case reviewed and plan approved by Dr. Gibbs. Sincere Aparicio, PGY-1 <Av Gibbs - Last Filed: 03/16/18 16:38> Objective - Vital Signs/Intake and Output Vital Signs (last 24 hours): Temp Pulse Resp BP Pulse Ox 97.6 F 43 L 20 144/86 96 03/16/18 14:00 03/16/18 14:00 03/16/18 14:00 03/16/18 14:00 03/16/18 14:00 Intake and Output: 03/16/18 03/16/18 06:59 18:59 Intake Total 860 360 Output Total 1410 Balance -550 360 - Medications Medications: Current Medications Acetaminophen (Tylenol 325mg Tab) 650 mg PO Q4H PRN PRN Reason: Pain, Mild (1-3) Amlodipine Besylate (Norvasc) 5 mg PO BID [facility] Last Admin: 03/16/18 09:41 Dose: 5 mg Heparin Sodium (Porcine) (Heparin) 5,000 units SC Q8H [facility]; Protocol Last Admin: 03/12/18 10:11 Dose: 5,000 units Ceftaroline Fosamil 600 mg/ (Sodium Chloride) 100 mls @ 100 mls/hr IVPB Q12 [facility] Last Admin: 03/16/18 09:41 Dose: 100 mls/hr Insulin Human Regular (Humulin R Med) 0 units SC ACHS [facility]; Protocol Last Admin: 03/16/18 11:50 Dose: Not Given Losartan Potassium (Cozaar) 25 mg PO DAILY [facility] Last Admin: 03/14/18 11:47 Dose: 25 mg Ondansetron HCl (Zofran Inj) 4 mg IVP ONCE PRN PRN Reason: Nausea/Vomiting Pantoprazole Sodium (Protonix Ec Tab) 20 mg PO 0600,1600 [facility] Last Admin: 03/16/18 05:45 Dose: 20 mg - Labs Labs: 03/16/18 06:45 03/16/18 06:45 PT 15.0 SECONDS (9.4-12.5) H 03/13/18 06:30 INR 1.30 03/13/18 06:30 APTT 38.5 Seconds (25.1-36.5) H 03/13/18 06:30 Attending/Attestation - Attestation I have personally seen and examined this patient.: Yes I have fully participated in the care of the patient.: Yes I have reviewed all pertinent clinical information, including history, physical exam and plan: Yes Notes (Text): 03/16/18 16:37 82 year old male with past medical history of PAD, COPD, hypertension, and chronic LE cellulitis who presented with complaint of left lower extremity cellulitis and gangrenous left 2nd distal phalanx. Foot MRI was consistent with 2nd proximal/middle phalanx osteomyelitis and wound culture grew MRSA. Patient is on IV antibiotics. ID and podiatry are following. He is s/p amputation of second digit POD #9. Pathology was reviewed as above and patient went again to OR earlier this week for further bone fragment excision at amputation site POD #3. Pathology was reviewed. Repeat cultures is growing growing gram positive cocci. Cardiology is following for bradycardia. Patient is asymptomatic. Not on beta blockers. Holter applied. Echocardiogram was reviewed. Consider outpatient stress test. He is on norvasc and cozaar for hypertension. Picc line is placed today. Possible d/c planning this weekend to [facility]. Av Gibbs MD Hospitalist.
--- NOTE | 2018-03-16 15:28 | CP.PCM.PN ---
<Sanju Ruelas - Last Filed: 03/16/18 15:29> Subjective - Date & Time of Evaluation Date of Evaluation: 03/16/18 Time of Evaluation: 15:27 - Subjective Subjective: Podiatry progress note for Dr. Almendarez 82 y/o M patient seen and evaluated at the bedside 3 days S/P revision of left second digit amputation with met head resection. Patient was resting comfortably and NAD. He denies any pain to surgical site. Denies any acute events overnight. Patient denies N/V/F/C/SOB/CP and has no other pedal complaints at this time. Objective - Vital Signs/Intake and Output Vital Signs (last 24 hours): Temp Pulse Resp BP Pulse Ox 97.6 F 43 L 20 144/86 96 03/16/18 14:00 03/16/18 14:00 03/16/18 14:00 03/16/18 14:00 03/16/18 14:00 Intake and Output: 03/16/18 03/16/18 06:59 18:59 Intake Total 860 360 Output Total 1410 Balance -550 360 - Medications Medications: Current Medications Acetaminophen (Tylenol 325mg Tab) 650 mg PO Q4H PRN PRN Reason: Pain, Mild (1-3) Amlodipine Besylate (Norvasc) 5 mg PO BID [facility] Last Admin: 03/16/18 09:41 Dose: 5 mg Heparin Sodium (Porcine) (Heparin) 5,000 units SC Q8H [facility]; Protocol Last Admin: 03/12/18 10:11 Dose: 5,000 units Ceftaroline Fosamil 600 mg/ (Sodium Chloride) 100 mls @ 100 mls/hr IVPB Q12 [facility] Last Admin: 03/16/18 09:41 Dose: 100 mls/hr Insulin Human Regular (Humulin R Med) 0 units SC ACHS [facility]; Protocol Last Admin: 03/16/18 11:50 Dose: Not Given Losartan Potassium (Cozaar) 25 mg PO DAILY [facility] Last Admin: 03/14/18 11:47 Dose: 25 mg Ondansetron HCl (Zofran Inj) 4 mg IVP ONCE PRN PRN Reason: Nausea/Vomiting Pantoprazole Sodium (Protonix Ec Tab) 20 mg PO 0600,1600 [facility] Last Admin: 03/16/18 05:45 Dose: 20 mg - Labs Labs: 03/16/18 06:45 03/16/18 06:45 PT 15.0 SECONDS (9.4-12.5) H 03/13/18 06:30 INR 1.30 03/13/18 06:30 APTT 38.5 Seconds (25.1-36.5) H 03/13/18 06:30 - Constitutional Appears: Well, Non-toxic, No Acute Distress - Head Exam Head Exam: ATRAUMATIC, NORMOCEPHALIC - Extremities Exam Additional comments: Bilateral lower extremities exam Vasc: faintly palpable pedal pulses bilaterally, Temp gradient warm to cool in the right side and 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 Cap refill < 3 sec to all remaining digits. No erythema noted. Mild non pitting edema noted to the left foot. Neuro: Gross and protective sensations are grossly diminished. Derm: Surgical site incision well coapted, sutures intact, no evidence of pus or purulent drainage, No drainage noted through the dressing, no openings or signs of wound dehiscence, no probing, no clinical signs of infection MSK: No pain on palpation of foot or legs bilaterally. Muscle power intact 5/5 to all groups b/l. - Neurological Exam Neurological Exam: Alert, Awake, Oriented x3 - Psychiatric Exam Psychiatric exam: Normal Affect, Normal Mood Assessment and Plan - Assessment and Plan (Free Text) Assessment: 82 y/o M patient seen and evaluated at the bedside 3 days S/P revision of left second digit amputation with met head resection Plan: Patient seen and evaluated at bedside. Discussed in detail with Dr. Almendarez Charts, labs ad vitals reviewed; Afebrile, absent leukocytosis Post operative left foot X-ray: small, tiny fragments of bone at the surgical site Dressing was C/D/I. Dressing left intact. Wound cx 03/08 - MRSA Continue IV Abx per ID Patient will need 4 weeks of IV Abx Pathology postop - fragments of bone with focal acute OM, fragments of fibrodense tissue with fibroconnective tissue. Deep tissue cultures from the surgery; Gram positive cocci (preliminary) Continue pain management as needed Podiatry will continue to follow up the patient while in house <Luis Carlos Almendarez - Last Filed: 03/17/18 08:23> Objective - Vital Signs/Intake and Output Vital Signs (last 24 hours): Temp Pulse Resp BP Pulse Ox 98.0 F 43 L 18 135/52 L 97 03/17/18 06:00 03/17/18 06:00 03/17/18 06:00 03/17/18 06:00 03/17/18 06:00 Intake and Output: 03/17/18 03/17/18 06:59 18:59 Intake Total 540 Output Total 200 Balance 340 - Medications Medications: Current Medications Acetaminophen (Tylenol 325mg Tab) 650 mg PO Q4H PRN PRN Reason: Pain, Mild (1-3) Amlodipine Besylate (Norvasc) 5 mg PO BID [facility] Last Admin: 03/16/18 18:11 Dose: 5 mg Heparin Sodium (Porcine) (Heparin) 5,000 units SC Q8H [facility]; Protocol Last Admin: 03/12/18 10:11 Dose: 5,000 units Ceftaroline Fosamil 600 mg/ (Sodium Chloride) 100 mls @ 100 mls/hr IVPB Q12 [facility] Last Admin: 03/16/18 22:19 Dose: 100 mls/hr Insulin Human Regular (Humulin R Med) 0 units SC ACHS [facility]; Protocol Last Admin: 03/16/18 22:19 Dose: Not Given Losartan Potassium (Cozaar) 25 mg PO DAILY [facility] Last Admin: 03/14/18 11:47 Dose: 25 mg Ondansetron HCl (Zofran Inj) 4 mg IVP ONCE PRN PRN Reason: Nausea/Vomiting Pantoprazole Sodium (Protonix Ec Tab) 20 mg PO 0600,1600 [facility] Last Admin: 03/17/18 05:36 Dose: 20 mg - Labs Labs: 03/17/18 06:40 03/16/18 06:45 PT 15.0 SECONDS (9.4-12.5) H 03/13/18 06:30 INR 1.30 03/13/18 06:30 APTT 38.5 Seconds (25.1-36.5) H 03/13/18 06:30 Attending/Attestation - Attestation I have personally seen and examined this patient.: Yes I have fully participated in the care of the patient.: Yes I have reviewed all pertinent clinical information, including history, physical exam and plan: Yes
--- NOTE | 2018-03-16 22:48 | PN ---
DATE: 03/16/2018 SEX OF THE PATIENT: Male. AGE OF THE PATIENT: 82. TYPE OF DICTATION: Progress note. REFERRING PHYSICIAN: Dr. Gibbs REASON FOR CONSULTATION: Followup, cardiac evaluation, bradycardia, status post re-amputation of fourth toe. This note is in addition to dictated by nurse practitioner, Alejandrina Astorga. The patient has revision of the left fourth toe amputation done. Found to be brachycardia. Holter was placed, but Holter turned out to be blank, did not record any activities, so repeat Holter was in progress. The patient has echocardiography done with ejection fraction of 55%, mild aortic stenosis versus aortic sclerosis, mild mitral regurgitation, and trace TR. RECOMMENDATIONS: Continue repeat Holter though the patient is bradycardic with asymptomatic. Continue Holter monitor. Avoid beta randi. calcium channel randi. We will put hydralazine and consider losartan. Further recommendation after Holter monitor. We will follow with you. Thank you Dr. Gibbs for providing us the opportunity in taking car of the patient, Amrik Harris. Yousif Boggs MD
[2018-03-17] MEDS: Pantoprazole 20 mg EC Tab PO SCH ×2 (05:36→18:13)
[2018-03-17 07:58] LABS: BASO # 0.02 K/mm3 (0.0-2.0); BASO % 0.3 % (0.0-3.0); EOS # 0.3 (0.0-0.7); GRAN # 5.1 (1.4-6.5); GRAN % 65.5 % (50.0-68.0); HEMOGLOBIN 10.8 g/dL (14.0-18.0); LYMPH # 1.8 (1.2-3.4); LYMPH % 22.9 % (22.0-35.0); MEAN CORPUSCULAR HEMOGLOBIN 26.7 pg (25.0-35.0); MEAN CORPUSCULAR HGB CONC 32.1 g/dl (31.0-37.0); MEAN PLATELET VOLUME 8.8 fl (7.0-11.0); MONO # 0.6 (0.1-0.6); MONO % 7.3 % (1.0-6.0); RBC 4.05 10^6/uL (3.5-6.1); RED CELL DISTRIBUTION WIDTH 13.7 % (11.5-14.5); WHITE BLOOD COUNT 7.8 10^3/uL (4.5-11.0)
[2018-03-17] MEDS: Insulin Reg-MEDIUM-Coverage SC SCH ×4 (08:32→21:38)
[2018-03-17 08:35] LABS: ALBUMIN 3.3 g/dL (3.0-4.8); ALT/SGPT 17 U/L (7-56); AST/SGOT 23 U/L (17-59); BLOOD UREA NITROGEN 33 mg/dL (7-21); GFR NON-AFRICAN AMERICAN 53
--- NOTE | 2018-03-17 08:56 | CP.PCM.PN ---
Subjective - Date & Time of Evaluation Date of Evaluation: 03/17/18 Time of Evaluation: 07:40 - Subjective Subjective: Awake, alert, no distress, denies chest pain Reason for consultation and follow up: Cardiac evaluation of bradycardia, status post revision of left 4th digit Seen and examined by me and Dr. York Objective - Vital Signs/Intake and Output Vital Signs (last 24 hours): Temp Pulse Resp BP Pulse Ox 98.0 F 43 L 18 135/52 L 97 03/17/18 06:00 03/17/18 06:00 03/17/18 06:00 03/17/18 06:00 03/17/18 06:00 Intake and Output: 03/17/18 03/17/18 06:59 18:59 Intake Total 540 Output Total 200 Balance 340 - Medications Medications: Current Medications Acetaminophen (Tylenol 325mg Tab) 650 mg PO Q4H PRN PRN Reason: Pain, Mild (1-3) Amlodipine Besylate (Norvasc) 5 mg PO BID [facility] Last Admin: 03/16/18 18:11 Dose: 5 mg Heparin Sodium (Porcine) (Heparin) 5,000 units SC Q8H [facility]; Protocol Last Admin: 03/12/18 10:11 Dose: 5,000 units Ceftaroline Fosamil 600 mg/ (Sodium Chloride) 100 mls @ 100 mls/hr IVPB Q12 [facility] Last Admin: 03/16/18 22:19 Dose: 100 mls/hr Insulin Human Regular (Humulin R Med) 0 units SC ACHS [facility]; Protocol Last Admin: 03/17/18 08:32 Dose: Not Given Losartan Potassium (Cozaar) 25 mg PO DAILY [facility] Last Admin: 03/14/18 11:47 Dose: 25 mg Ondansetron HCl (Zofran Inj) 4 mg IVP ONCE PRN PRN Reason: Nausea/Vomiting Pantoprazole Sodium (Protonix Ec Tab) 20 mg PO 0600,1600 [facility] Last Admin: 03/17/18 05:36 Dose: 20 mg - Labs Labs: 03/17/18 06:40 03/17/18 06:40 PT 15.0 SECONDS (9.4-12.5) H 03/13/18 06:30 INR 1.30 03/13/18 06:30 APTT 38.5 Seconds (25.1-36.5) H 03/13/18 06:30 - Constitutional Appears: Non-toxic, No Acute Distress - Head Exam Head Exam: NORMAL INSPECTION, NORMOCEPHALIC - Eye Exam Eye Exam: Normal appearance Pupil Exam: NORMAL ACCOMODATION - ENT Exam ENT Exam: Mucous Membranes Moist, Normal Exam - Respiratory Exam Respiratory Exam: Clear to Ausculation Bilateral, NORMAL BREATHING PATTERN - Cardiovascular Exam Cardiovascular Exam: +S1, +S2 - GI/Abdominal Exam GI & Abdominal Exam: Soft, Normal Bowel Sounds - Extremities Exam Additional comments: left foot dressing - Neurological Exam Neurological Exam: Alert, Awake, Oriented x3 - Psychiatric Exam Psychiatric exam: Normal Affect, Normal Mood - Skin Skin Exam: Dry, Normal Color, Warm Assessment and Plan - Assessment and Plan (Free Text) Assessment: An 82 year old male who wascame to the ER due to left toe wound. 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 Patient bradycardic and consult was called. Patient is not on betablocker. Placed on Holter monitor.Stress test as outpatient once better from toe surgery.Echo done.LVEF 55%,Aortic sclerosis Vs Mild As, mild mitral regurgitation,trace TR, moderate pulmonic valve regurgitation,no vegetation or thrombus. Initial placement of Holter unable to capture,so on Holter monitor x 24 hours, will follow up result Status post revision of left toe. Stable clinically. Plan: Holter monitor showed multiple escape beats, Marked sinus malia arrythmia/junctional rhythm and escape beats Minimum heart rate 30/min, maximum heart rate 97/min 237 drop beats, longest R-R 2-8 seconds For PPM Monday Hold [facility] No distress, denies shortness of breath Cardiac status stable Stable blood pressure Heart rate 40's-50's asymptomatic No Betablocker Status post revision of left toe On Norvasc 5 mg BID Continue antibiotics as ordered Continue current treatment Continue current medications Will follow up Plan and treatment discussed with Dr. York
--- NOTE | 2018-03-17 10:15 | CP.PCM.PN ---
<Debbie Ward - Last Filed: 03/17/18 10:13> Subjective - Date & Time of Evaluation Date of Evaluation: 03/17/18 Time of Evaluation: 10:13 - Subjective Subjective: Podiatry progress note for Dr. Hay 82 y/o M patient seen and evaluated at the bedside 3 days S/P revision of left second digit amputation with met head resection. Patient was resting comfortably and NAD. He denies any pain to surgical site. Denies any acute events overnight. Patient denies N/V/F/C/SOB/CP and has no other pedal complaints at this time. Objective - Vital Signs/Intake and Output Vital Signs (last 24 hours): Temp Pulse Resp BP Pulse Ox 98.0 F 43 L 18 135/52 L 97 03/17/18 06:00 03/17/18 06:00 03/17/18 06:00 03/17/18 06:00 03/17/18 06:00 Intake and Output: 03/17/18 03/17/18 06:59 18:59 Intake Total 540 Output Total 200 Balance 340 - Medications Medications: Current Medications Acetaminophen (Tylenol 325mg Tab) 650 mg PO Q4H PRN PRN Reason: Pain, Mild (1-3) Amlodipine Besylate (Norvasc) 5 mg PO BID [facility] Last Admin: 03/16/18 18:11 Dose: 5 mg Heparin Sodium (Porcine) (Heparin) 5,000 units SC Q8H [facility]; Protocol Last Admin: 03/12/18 10:11 Dose: 5,000 units Ceftaroline Fosamil 600 mg/ (Sodium Chloride) 100 mls @ 100 mls/hr IVPB Q12 [facility] Last Admin: 03/16/18 22:19 Dose: 100 mls/hr Insulin Human Regular (Humulin R Med) 0 units SC ACHS [facility]; Protocol Last Admin: 03/17/18 08:32 Dose: Not Given Losartan Potassium (Cozaar) 25 mg PO DAILY [facility] Last Admin: 03/14/18 11:47 Dose: 25 mg Ondansetron HCl (Zofran Inj) 4 mg IVP ONCE PRN PRN Reason: Nausea/Vomiting Pantoprazole Sodium (Protonix Ec Tab) 20 mg PO 0600,1600 [facility] Last Admin: 03/17/18 05:36 Dose: 20 mg - Labs Labs: 03/17/18 06:40 03/17/18 06:40 PT 15.0 SECONDS (9.4-12.5) H 03/13/18 06:30 INR 1.30 03/13/18 06:30 APTT 38.5 Seconds (25.1-36.5) H 03/13/18 06:30 - Constitutional Appears: Well, Non-toxic, No Acute Distress - Extremities Exam Additional comments: Left lower extremities exam: Dressing was C/D/I. Dressing left intact. Vasc: Cap refill < 3 sec to the remaining digits. Neuro: Protective sensation diminished. - Neurological Exam Neurological Exam: Alert, Awake, Oriented x3 - Psychiatric Exam Psychiatric exam: Normal Affect, Normal Mood Assessment and Plan - Assessment and Plan (Free Text) Assessment: 82 y/o M patient seen and evaluated at the bedside 2 days S/P revision of left second digit amputation with met head resection Plan: Patient seen and evaluated at bedside. Discussed in detail with Dr. Almendarez Charts, labs ad vitals reviewed; Afebrile, absent leukocytosis Post operative left foot X-ray: small, tiny fragments of bone at the surgical site Dressing was C/D/I. Dressing left intact. Wound cx 03/08 - MRSA Continue IV Abx per ID Patient will need 4 weeks of IV Abx Pathology postop - fagments of bone with focal acute OM, fragments of fibrodense tissue with fibroconnective tissue . Continue pain management as needed Patient seen by PT and evaluated - recommend [facility] for continued skilled PT and management. Podiatry will continue to follow up the patient while in house <Luis Carlos Almendarez - Last Filed: 03/19/18 10:22> Objective - Vital Signs/Intake and Output Vital Signs (last 24 hours): Temp Pulse Resp BP Pulse Ox 98 F 39 L 20 155/98 H 98 03/18/18 22:00 03/18/18 22:00 03/18/18 22:00 03/18/18 22:00 03/18/18 22:00 Intake and Output: 03/19/18 03/19/18 06:59 18:59 Intake Total 180 Output Total 600 Balance -420 - Medications Medications: Current Medications Acetaminophen (Tylenol 325mg Tab) 650 mg PO Q4H PRN PRN Reason: Pain, Mild (1-3) Amlodipine Besylate (Norvasc) 5 mg PO BID [facility] Last Admin: 03/18/18 18:10 Dose: Not Given Heparin Sodium (Porcine) (Heparin) 5,000 units SC Q8H [facility]; Protocol Last Admin: 03/12/18 10:11 Dose: 5,000 units Ceftaroline Fosamil 600 mg/ (Sodium Chloride) 100 mls @ 100 mls/hr IVPB Q12 [facility] Last Admin: 03/18/18 22:05 Dose: 100 mls/hr Insulin Human Regular (Humulin R Med) 0 units SC ACHS [facility]; Protocol Last Admin: 03/18/18 22:30 Dose: Not Given Losartan Potassium (Cozaar) 25 mg PO DAILY [facility] Last Admin: 03/14/18 11:47 Dose: 25 mg Ondansetron HCl (Zofran Inj) 4 mg IVP ONCE PRN PRN Reason: Nausea/Vomiting Pantoprazole Sodium (Protonix Ec Tab) 20 mg PO 0600,1600 [facility] Last Admin: 03/19/18 05:25 Dose: 20 mg - Labs Labs: 03/19/18 07:40 03/19/18 07:40 PT 15.7 SECONDS (9.4-12.5) H 03/19/18 07:40 INR 1.36 03/19/18 07:40 APTT 37.1 Seconds (25.1-36.5) H 03/19/18 07:40 Attending/Attestation - Attestation I have personally seen and examined this patient.: Yes I have fully participated in the care of the patient.: Yes I have reviewed all pertinent clinical information, including history, physical exam and plan: Yes
--- NOTE | 2018-03-17 10:45 | CARD ---
APPROVED REPORT Date of service: 03/16/2018 Reason for Test: BRADYCARDIA Hookup date: 2018-03-14 Scan date: 2018-03-16 Recording time: 23 HR 59 MIN Heart Rate Data Total Beats: [id number] Min HR: 30 BPM at 1:27AM Avg HR: 45 BPM Max HR: 97 BPM at 6:52PM Ventricular Ectopy Total VE Beats: 76 (%) Single/Interp PVC: 66/0 Single/Late VE's: 10/0 Supraventricular Ectopy Total VE Beats: 4536 (%) Atrial Pairs: 10 Events Drop/Late: 238/75 Longest R-R: 2.8 sec at 5:41 AM Single PAC's: 2473 Bi/Trigeminy: Beats Conclusion SINUS RHYTHM / SINUS BRADYCARDIA / MARKED SINUS VIRIDIANA/ARRHYTHMIA JUNCTIONAL RHYTHM / ESCAPE BEATS MINIMUM HR 30 BPM MAXIMUM HR 97 BPM RARE SVE's, ISOLATED PAIRED ISOLATED VPC'S 237 DROPPED BEATS, LONGEST R-R 2.8 SECONDS
[2018-03-17] MEDS: Ceftaroline 600 MG in Sodium Chloride 0.9% 100 ML IVPB SCH ×2 (13:05→21:37)
--- NOTE | 2018-03-17 15:43 | CP.PCM.PN ---
<Rex Whiting - Last Filed: 03/17/18 15:40> Subjective - Date & Time of Evaluation Date of Evaluation: 03/17/18 Time of Evaluation: 15:40 - Subjective Subjective: Rex Whiting, PGY-1, Internal Medicine Progress Note for Dr. Gibbs Patient seen and evaluated at bedside. Patient had no acute events overnight. Patient reports no symptoms at this time. Patient denies headache, fever, chest pain, shortness of breath, nausea, vomiting, constipation, diarrhea, abdominal pain, dysuria, hematuria, numbness/tingling. 12-point ROS is negative except for what is mentioned above. Objective - Vital Signs/Intake and Output Vital Signs (last 24 hours): Temp Pulse Resp BP Pulse Ox 98.0 F 43 L 18 135/52 L 97 03/17/18 06:00 03/17/18 06:00 03/17/18 06:00 03/17/18 06:00 03/17/18 06:00 Intake and Output: 03/17/18 03/17/18 06:59 18:59 Intake Total 540 Output Total 200 Balance 340 - Medications Medications: Current Medications Acetaminophen (Tylenol 325mg Tab) 650 mg PO Q4H PRN PRN Reason: Pain, Mild (1-3) Amlodipine Besylate (Norvasc) 5 mg PO BID [facility] Last Admin: 03/17/18 13:20 Dose: 5 mg Heparin Sodium (Porcine) (Heparin) 5,000 units SC Q8H [facility]; Protocol Last Admin: 03/12/18 10:11 Dose: 5,000 units Ceftaroline Fosamil 600 mg/ (Sodium Chloride) 100 mls @ 100 mls/hr IVPB Q12 [facility] Last Admin: 03/17/18 13:05 Dose: 100 mls/hr Insulin Human Regular (Humulin R Med) 0 units SC ACHS [facility]; Protocol Last Admin: 03/17/18 13:20 Dose: Not Given Losartan Potassium (Cozaar) 25 mg PO DAILY [facility] Last Admin: 03/14/18 11:47 Dose: 25 mg Ondansetron HCl (Zofran Inj) 4 mg IVP ONCE PRN PRN Reason: Nausea/Vomiting Pantoprazole Sodium (Protonix Ec Tab) 20 mg PO 0600,1600 [facility] Last Admin: 03/17/18 05:36 Dose: 20 mg - Labs Labs: 03/17/18 06:40 03/17/18 06:40 PT 15.0 SECONDS (9.4-12.5) H 03/13/18 06:30 INR 1.30 03/13/18 06:30 APTT 38.5 Seconds (25.1-36.5) H 03/13/18 06:30 - Constitutional Appears: Well, Non-toxic, No Acute Distress - Head Exam Head Exam: ATRAUMATIC, NORMAL INSPECTION, NORMOCEPHALIC - Eye Exam Eye Exam: EOMI Pupil Exam: PERRL - Neck Exam Neck Exam: Full ROM - Respiratory Exam Respiratory Exam: Clear to Ausculation Bilateral, NORMAL BREATHING PATTERN - Cardiovascular Exam Cardiovascular Exam: Bradycardia, REGULAR RHYTHM - GI/Abdominal Exam GI & Abdominal Exam: Soft, Normal Bowel Sounds. absent: Tenderness - Extremities Exam Extremities Exam: Full ROM - Neurological Exam Neurological Exam: Alert, Awake, CN II-XII Intact, Oriented x3 Assessment and Plan - Assessment and Plan (Free Text) Assessment: 82 year old male with past medical history of peripheral artery disease, chronic LLE cellulitis, COPD, HTN, dementia, obesity [place] [facility] [place] complaints of LLE anterior tibial region cellulitis and black L foot 2nd distal phalanx. Amputation of L second phalax done on 03/07. Patient is POD #8. Revision of L 2nd phalanx with removal of bone fragment POD#3. Plan: L foot 2nd distal phalax osteomyelitis/LLE cellulitis -MRI L foot: marrow edema in 2nd proximal and middle phalanx consistent with osteomyelitis -Postoperative left foot X ray: small, tiny fragments of bone at the surgical site -Wound cultures: MRSA -Blood cultures: negative after 5 days -Urine culture: negative -Procalcitonin on 03/01: 0.07 -Dr. Almendarez amputated 2nd metatarsal head of left foot on 03/08 which was alma ed on 03/13 with bone fragment excised. -ID, Dr. Wylie, recommends 4-6 weeks of Ceftaroline day 17 with weekly ESR, CRP, CBC, and CMP. -PICC line was placed by 03/16. Bradycardia -HR ranging from 30 to mid 50s -Holter monitor placed on patient which showed sinus bradycardia, arrhythmia, junctional rhythm, and escape beats. Patient also had 237 dropped beats. -Patient will have permanent pacemaker placement on Monday. -Hold beta blockers, cozaar Hypertension -BP: 134/95 -HHD diet -Norvasc 5 mg BID. Hold beta blockers and cozaar due to bradycardia. Normocytic Anemia -Hgb: 10.8 -Continue to monitor. History of prediabetes, diabetic peripheral neuropathy -Hemoglobin A1c: 6.2 -Low dose sliding scale insulin DVT/GI PPx: - Heparin 5000 q8 held - Protonix 20 mg daily Patient plan discussed with Dr. Gibbs <Av Gibbs - Last Filed: 03/18/18 06:48> Objective - Vital Signs/Intake and Output Vital Signs (last 24 hours): Temp Pulse Resp BP Pulse Ox 98.9 F 46 L 18 179/65 H 96 03/17/18 22:20 03/18/18 06:19 03/17/18 22:20 03/18/18 06:19 03/17/18 22:20 Intake and Output: 03/17/18 03/18/18 18:59 06:59 Intake Total 180 Output Total 500 Balance -320 - Medications Medications: Current Medications Acetaminophen (Tylenol 325mg Tab) 650 mg PO Q4H PRN PRN Reason: Pain, Mild (1-3) Amlodipine Besylate (Norvasc) 5 mg PO BID [facility] Last Admin: 03/18/18 06:19 Dose: 5 mg Heparin Sodium (Porcine) (Heparin) 5,000 units SC Q8H [facility]; Protocol Last Admin: 03/12/18 10:11 Dose: 5,000 units Ceftaroline Fosamil 600 mg/ (Sodium Chloride) 100 mls @ 100 mls/hr IVPB Q12 [facility] Last Admin: 03/17/18 21:37 Dose: 100 mls/hr Insulin Human Regular (Humulin R Med) 0 units SC ACHS [facility]; Protocol Last Admin: 03/17/18 21:38 Dose: Not Given Losartan Potassium (Cozaar) 25 mg PO DAILY [facility] Last Admin: 03/14/18 11:47 Dose: 25 mg Ondansetron HCl (Zofran Inj) 4 mg IVP ONCE PRN PRN Reason: Nausea/Vomiting Pantoprazole Sodium (Protonix Ec Tab) 20 mg PO 0600,1600 [facility] Last Admin: 03/18/18 06:14 Dose: 20 mg - Labs Labs: 03/17/18 06:40 03/17/18 06:40 PT 15.0 SECONDS (9.4-12.5) H 03/13/18 06:30 INR 1.30 03/13/18 06:30 APTT 38.5 Seconds (25.1-36.5) H 03/13/18 06:30 Attending/Attestation - Attestation I have personally seen and examined this patient.: Yes I have fully participated in the care of the patient.: Yes I have reviewed all pertinent clinical information, including history, physical exam and plan: Yes Notes (Text): 03/17/18 82 year old male with past medical history of PAD, COPD, hypertension, and chronic LE cellulitis who presented with complaint of left lower extremity cellulitis and gangrenous left 2nd distal phalanx. Foot MRI was consistent with 2nd proximal/middle phalanx osteomyelitis and wound culture grew MRSA. Patient is on IV antibiotics. ID and podiatry are following. He is s/p amputation of second digit POD #10. Patient went again to OR for further bone fragment excision at amputation site POD #4. Repeat cultures is growing MRSA. Patient will need shelter iv antibiotics. Picc line is in place. Cardiology is following for bradycardia. Patient is asymptomatic. Not on beta blockers. Holter was applied which showed bradycardia, multiple skipped beats, and pauses. Case was discussed with cardiology and discharged to [facility] today is cancelled with plan for PPM on Monday. He is on norvasc and cozaar for hypertension. Av Gibbs MD Hospitalist.
--- NOTE | 2018-03-18 03:53 | PN ---
DATE: 03/17/2018 SUBJECTIVE: The patient is in bed, in no acute distress, nontoxic. PHYSICAL EXAMINATION: VITAL SIGNS: Temperature is 98, blood pressure is 140/50, respiratory rate of 18. HEENT: Unremarkable. NECK: Supple. LUNGS: Have decreased breath sounds. HEART: Normal S1 and S2. ABDOMEN: Soft, nontender. LABORATORY EXAMINATION: Reveals a white count of 7.8, and chemistries are noted. BUN of 33, creatinine of 1.3. Microbiology reveals MRSA from the toe. Review of orders reveals the patient to be on ceftaroline. ASSESSMENT AND PLAN: An 82-year-old male with left leg and foot cellulitis, second toe gangrene with osteomyelitis with methicillin-resistant Staphylococcus aureus, status post amputation, postprocedure day #8, and further debridement postprocedure day #4, cellular osteomyelitis, and the patient with dementia, renal disease, hypertension, coronary artery disease, and will need 4-6 weeks of antibiotics. We will repeat CBC, SMA-18, sedimentation rate, C-reactive protein, and we will follow with you. Wally Wylie MD
[2018-03-18] MEDS: Pantoprazole 20 mg EC Tab PO SCH ×2 (06:14→17:58)
[2018-03-18] MEDS: Insulin Reg-MEDIUM-Coverage SC SCH ×4 (09:05→22:30)
[2018-03-18] MEDS: Ceftaroline 600 MG in Sodium Chloride 0.9% 100 ML IVPB SCH ×2 (09:08→22:05)
--- NOTE | 2018-03-18 10:21 | CP.PCM.PN ---
Subjective - Date & Time of Evaluation Date of Evaluation: 03/18/18 Time of Evaluation: 07:15 - Subjective Subjective: Lying in bed, Awake, alert, no distress, denies chest pain Reason for consultation and follow up: Cardiac evaluation of bradycardia, status post revision of left 4th digit Seen and examined by me and Dr. York Objective - Vital Signs/Intake and Output Vital Signs (last 24 hours): Temp Pulse Resp BP Pulse Ox 97.6 F 46 L 20 179/65 H 96 03/18/18 06:00 03/18/18 06:19 03/18/18 06:00 03/18/18 06:19 03/18/18 06:00 Intake and Output: 03/18/18 03/18/18 06:59 18:59 Intake Total 180 Output Total 500 Balance -320 - Medications Medications: Current Medications Acetaminophen (Tylenol 325mg Tab) 650 mg PO Q4H PRN PRN Reason: Pain, Mild (1-3) Amlodipine Besylate (Norvasc) 5 mg PO BID [facility] Last Admin: 03/18/18 06:19 Dose: 5 mg Heparin Sodium (Porcine) (Heparin) 5,000 units SC Q8H [facility]; Protocol Last Admin: 03/12/18 10:11 Dose: 5,000 units Ceftaroline Fosamil 600 mg/ (Sodium Chloride) 100 mls @ 100 mls/hr IVPB Q12 [facility] Last Admin: 03/18/18 09:08 Dose: 100 mls/hr Insulin Human Regular (Humulin R Med) 0 units SC ACHS [facility]; Protocol Last Admin: 03/18/18 09:05 Dose: Not Given Losartan Potassium (Cozaar) 25 mg PO DAILY [facility] Last Admin: 03/14/18 11:47 Dose: 25 mg Ondansetron HCl (Zofran Inj) 4 mg IVP ONCE PRN PRN Reason: Nausea/Vomiting Pantoprazole Sodium (Protonix Ec Tab) 20 mg PO 0600,1600 [facility] Last Admin: 03/18/18 06:14 Dose: 20 mg - Labs Labs: 03/17/18 06:40 03/17/18 06:40 PT 15.0 SECONDS (9.4-12.5) H 03/13/18 06:30 INR 1.30 03/13/18 06:30 APTT 38.5 Seconds (25.1-36.5) H 03/13/18 06:30 - Constitutional Appears: Non-toxic, No Acute Distress - Head Exam Head Exam: NORMAL INSPECTION, NORMOCEPHALIC - Eye Exam Eye Exam: Normal appearance Pupil Exam: NORMAL ACCOMODATION - ENT Exam ENT Exam: Mucous Membranes Moist, Normal Exam - Cardiovascular Exam Cardiovascular Exam: +S1, +S2 - GI/Abdominal Exam GI & Abdominal Exam: Soft, Normal Bowel Sounds - Extremities Exam Additional comments: left foot dressing - Neurological Exam Neurological Exam: Alert, Awake, Oriented x3 - Psychiatric Exam Psychiatric exam: Normal Affect, Normal Mood - Skin Skin Exam: Dry, Normal Color, Warm Assessment and Plan - Assessment and Plan (Free Text) Assessment: An 82 year old male who wascame to the ER due to left toe wound. 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 Patient bradycardic and consult was called. Patient is not on betablocker. Placed on Holter monitor.Stress test as outpatient once better from toe surgery.Echo done.LVEF 55%,Aortic sclerosis Vs Mild As, mild mitral regurgitation,trace TR, moderate pulmonic valve regurgitation,no vegetation or thrombus. Initial placement of Holter unable to capture,so on Holter monitor x 24 hours, will follow up result Status post revision of left toe.Holter monitor showed multiple escape beats, Marked sinus malia arrythmia/junctional rhythm and escape beats, Minimum heart rate 30/min, maximum heart rate 97/min, 237 drop beats, longest R-R 2-8 seconds. For PPM Monday. Dr. York had spoken to patient and and agreed. Plan: For PPM Monday for sick sinus syndrome (11am) He was suppose to be transferred to [facility] yesterday but was held due to results of Holter monitor NPO post midnight except meds No distress, denies shortness of breath Cardiac status stable Stable blood pressure Heart rate 40's-50's asymptomatic No Betablocker Status post revision of left toe On Norvasc 5 mg BID Continue antibiotics as ordered Continue current treatment Continue current medications Will follow up Plan and treatment discussed with Dr. York
--- NOTE | 2018-03-18 10:51 | CP.PCM.PN ---
<Debbie Ward - Last Filed: 03/18/18 10:49> Subjective - Date & Time of Evaluation Date of Evaluation: 03/18/18 Time of Evaluation: 10:49 - Subjective Subjective: Podiatry progress note for Dr. Hay 82 y/o M patient seen and evaluated at the bedside 4 days S/P revision of left second digit amputation with met head resection. Patient was resting comfortably and NAD. He denies any pain to surgical site. Denies any acute events overnight. Patient denies N/V/F/C/SOB/CP and has no other pedal complaints at this time. Objective - Vital Signs/Intake and Output Vital Signs (last 24 hours): Temp Pulse Resp BP Pulse Ox 97.6 F 46 L 20 179/65 H 96 03/18/18 06:00 03/18/18 06:19 03/18/18 06:00 03/18/18 06:19 03/18/18 06:00 Intake and Output: 03/18/18 03/18/18 06:59 18:59 Intake Total 180 Output Total 500 Balance -320 - Medications Medications: Current Medications Acetaminophen (Tylenol 325mg Tab) 650 mg PO Q4H PRN PRN Reason: Pain, Mild (1-3) Amlodipine Besylate (Norvasc) 5 mg PO BID [facility] Last Admin: 03/18/18 06:19 Dose: 5 mg Heparin Sodium (Porcine) (Heparin) 5,000 units SC Q8H [facility]; Protocol Last Admin: 03/12/18 10:11 Dose: 5,000 units Ceftaroline Fosamil 600 mg/ (Sodium Chloride) 100 mls @ 100 mls/hr IVPB Q12 [facility] Last Admin: 03/18/18 09:08 Dose: 100 mls/hr Insulin Human Regular (Humulin R Med) 0 units SC ACHS [facility]; Protocol Last Admin: 03/18/18 09:05 Dose: Not Given Losartan Potassium (Cozaar) 25 mg PO DAILY [facility] Last Admin: 03/14/18 11:47 Dose: 25 mg Ondansetron HCl (Zofran Inj) 4 mg IVP ONCE PRN PRN Reason: Nausea/Vomiting Pantoprazole Sodium (Protonix Ec Tab) 20 mg PO 0600,1600 [facility] Last Admin: 03/18/18 06:14 Dose: 20 mg - Labs Labs: 03/17/18 06:40 03/17/18 06:40 PT 15.0 SECONDS (9.4-12.5) H 03/13/18 06:30 INR 1.30 03/13/18 06:30 APTT 38.5 Seconds (25.1-36.5) H 03/13/18 06:30 - Constitutional Appears: Well, Non-toxic, No Acute Distress - Extremities Exam Additional comments: Bilateral lower extremities exam Vasc: faintly palpable pedal pulses bilaterally, Temp gradient warm to cool in the right side and 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 Cap refill < 3 sec to all remaining digits. No erythema noted. Mild non pitting edema noted to the left foot. Neuro: Gross and protective sensations are grossly diminished. Derm: Surgical site incision well coapted, sutures intact, no evidence of pus or purulent drainage, No drainage noted through the dressing, no openings or signs of wound dehiscence, no probing, no clinical signs of infection MSK: No pain on palpation of foot or legs bilaterally. Muscle power intact 5/5 to all groups b/l. - Neurological Exam Neurological Exam: Alert, Awake, Oriented x3 - Psychiatric Exam Psychiatric exam: Normal Affect, Normal Mood Assessment and Plan - Assessment and Plan (Free Text) Assessment: 82 y/o M patient seen and evaluated at the bedside 4 days S/P revision of left second digit amputation with met head resection Plan: Patient seen and evaluated at bedside. Discussed in detail with Dr. Almendarez Charts, labs ad vitals reviewed; Afebrile, absent leukocytosis Post operative left foot X-ray: small, tiny fragments of bone at the surgical site Dressing was C/D/I. Dressing left intact. Wound cx 03/08 - MRSA Continue IV Abx per ID Patient will need 4 weeks of IV Abx Pathology postop - fagments of bone with focal acute OM, fragments of fibrodense tissue with fibroconnective tissue . Continue pain management as needed Patient seen by PT and evaluated - recommend [facility] for continued skilled PT and management. Podiatry will continue to follow up the patient while in house <Luis Carlos Almendarez - Last Filed: 03/19/18 10:18> Objective - Vital Signs/Intake and Output Vital Signs (last 24 hours): Temp Pulse Resp BP Pulse Ox 98 F 39 L 20 155/98 H 98 03/18/18 22:00 03/18/18 22:00 03/18/18 22:00 03/18/18 22:00 03/18/18 22:00 Intake and Output: 03/19/18 03/19/18 06:59 18:59 Intake Total 180 Output Total 600 Balance -420 - Medications Medications: Current Medications Acetaminophen (Tylenol 325mg Tab) 650 mg PO Q4H PRN PRN Reason: Pain, Mild (1-3) Amlodipine Besylate (Norvasc) 5 mg PO BID [facility] Last Admin: 03/18/18 18:10 Dose: Not Given Heparin Sodium (Porcine) (Heparin) 5,000 units SC Q8H [facility]; Protocol Last Admin: 03/12/18 10:11 Dose: 5,000 units Ceftaroline Fosamil 600 mg/ (Sodium Chloride) 100 mls @ 100 mls/hr IVPB Q12 [facility] Last Admin: 03/18/18 22:05 Dose: 100 mls/hr Insulin Human Regular (Humulin R Med) 0 units SC ACHS [facility]; Protocol Last Admin: 03/18/18 22:30 Dose: Not Given Losartan Potassium (Cozaar) 25 mg PO DAILY [facility] Last Admin: 03/14/18 11:47 Dose: 25 mg Ondansetron HCl (Zofran Inj) 4 mg IVP ONCE PRN PRN Reason: Nausea/Vomiting Pantoprazole Sodium (Protonix Ec Tab) 20 mg PO 0600,1600 [facility] Last Admin: 03/19/18 05:25 Dose: 20 mg - Labs Labs: 03/19/18 07:40 03/19/18 07:40 PT 15.7 SECONDS (9.4-12.5) H 03/19/18 07:40 INR 1.36 03/19/18 07:40 APTT 37.1 Seconds (25.1-36.5) H 03/19/18 07:40 Attending/Attestation - Attestation I have personally seen and examined this patient.: Yes I have fully participated in the care of the patient.: Yes I have reviewed all pertinent clinical information, including history, physical exam and plan: Yes
--- NOTE | 2018-03-18 15:31 | CP.PCM.PN ---
<Rex Whiting - Last Filed: 03/18/18 15:28> Subjective - Date & Time of Evaluation Date of Evaluation: 03/18/18 Time of Evaluation: 15:28 - Subjective Subjective: Rex Whiting, PGY-1, Internal Medicine Progress Note for Dr. Gibbs Patient seen and examined at bedside. Patient had no acute overnight events. Patient has no complaints of this time. Patient denies headache, chest pain, heart palpitations, shortness of breath, nausea, vomiting, constipation, diarrhea, dysuria, and hematuria. 12-point ROS was negative except for what was mentioned above. Objective - Vital Signs/Intake and Output Vital Signs (last 24 hours): Temp Pulse Resp BP Pulse Ox 97.6 F 46 L 20 179/65 H 96 03/18/18 06:00 03/18/18 06:19 03/18/18 06:00 03/18/18 06:19 03/18/18 06:00 Intake and Output: 03/18/18 03/18/18 06:59 18:59 Intake Total 180 Output Total 500 Balance -320 - Medications Medications: Current Medications Acetaminophen (Tylenol 325mg Tab) 650 mg PO Q4H PRN PRN Reason: Pain, Mild (1-3) Amlodipine Besylate (Norvasc) 5 mg PO BID [facility] Last Admin: 03/18/18 06:19 Dose: 5 mg Heparin Sodium (Porcine) (Heparin) 5,000 units SC Q8H [facility]; Protocol Last Admin: 03/12/18 10:11 Dose: 5,000 units Ceftaroline Fosamil 600 mg/ (Sodium Chloride) 100 mls @ 100 mls/hr IVPB Q12 [facility] Last Admin: 03/18/18 09:08 Dose: 100 mls/hr Insulin Human Regular (Humulin R Med) 0 units SC ACHS [facility]; Protocol Last Admin: 03/18/18 09:05 Dose: Not Given Losartan Potassium (Cozaar) 25 mg PO DAILY [facility] Last Admin: 03/14/18 11:47 Dose: 25 mg Ondansetron HCl (Zofran Inj) 4 mg IVP ONCE PRN PRN Reason: Nausea/Vomiting Pantoprazole Sodium (Protonix Ec Tab) 20 mg PO 0600,1600 [facility] Last Admin: 03/18/18 06:14 Dose: 20 mg - Labs Labs: 03/17/18 06:40 03/17/18 06:40 PT 15.0 SECONDS (9.4-12.5) H 03/13/18 06:30 INR 1.30 03/13/18 06:30 APTT 38.5 Seconds (25.1-36.5) H 03/13/18 06:30 - Constitutional Appears: Well, Non-toxic, No Acute Distress - Head Exam Head Exam: ATRAUMATIC, NORMAL INSPECTION, NORMOCEPHALIC - Eye Exam Eye Exam: EOMI, PERRL - Respiratory Exam Respiratory Exam: Clear to Ausculation Bilateral, NORMAL BREATHING PATTERN - Cardiovascular Exam Cardiovascular Exam: REGULAR RHYTHM - GI/Abdominal Exam GI & Abdominal Exam: Soft, Normal Bowel Sounds - Back Exam Back Exam: Full ROM - Neurological Exam Neurological Exam: Alert, Awake, CN II-XII Intact, Oriented x3 Neuro motor strength exam: Left Upper Extremity: 5, Right Upper Extremity: 5, Left Lower Extremity: 5, Right Lower Extremity: 5 Assessment and Plan - Assessment and Plan (Free Text) Assessment: 82 year old male with past medical history of peripheral artery disease, chronic LLE cellulitis, COPD, HTN, dementia, obesity presents to [facility] with complaints of LLE anterior tibial region cellulitis and black L foot 2nd distal phalanx. Amputation of L second phalax done on 03/07. Patient is POD #9. Revision of L 2nd phalanx with removal of bone fragment POD#4. Plan: L foot 2nd distal phalax osteomyelitis/LLE cellulitis -MRI L foot: marrow edema in 2nd proximal and middle phalanx consistent with osteomyelitis -Postoperative left foot X ray: small, tiny fragments of bone at the surgical site -Wound cultures: MRSA -Blood cultures: negative after 5 days -Urine culture: negative -Procalcitonin on 03/01: 0.07 -Dr. Almendarez amputated 2nd metatarsal head of left foot on 03/08 which was revised on 03/13 with bone fragment excised. -ID, Dr. Wylie, recommends 4-6 weeks of Ceftaroline day 18 with weekly ESR, CRP, CBC, and CMP. -PICC line was placed by 03/16. Bradycardia -HR ranging from 30 to mid 50s -Holter monitor placed on patient which showed sinus bradycardia, arrhythmia, j unctional rhythm, and escape beats. Patient also had 237 dropped beats. -Patient will have permanent pacemaker placement on Monday. -Hold beta blockers, cozaar Hypertension -BP: 134/95 -HHD diet -Norvasc 5 mg BID. Hold beta blockers and cozaar due to bradycardia. Normocytic Anemia -Hgb: 10.8 -Continue to monitor. History of prediabetes, diabetic peripheral neuropathy -Hemoglobin A1c: 6.2 -Low dose sliding scale insulin DVT/GI PPx: - Heparin 5000 q8 held - Protonix 20 mg daily Patient plan discussed with Dr. Gibbs <Av Gibbs - Last Filed: 03/18/18 15:36> Objective - Vital Signs/Intake and Output Vital Signs (last 24 hours): Temp Pulse Resp BP Pulse Ox 97.6 F 46 L 20 179/65 H 96 03/18/18 06:00 03/18/18 06:19 03/18/18 06:00 03/18/18 06:19 03/18/18 06:00 Intake and Output: 03/18/18 03/18/18 06:59 18:59 Intake Total 180 Output Total 500 Balance -320 - Medications Medications: Current Medications Acetaminophen (Tylenol 325mg Tab) 650 mg PO Q4H PRN PRN Reason: Pain, Mild (1-3) Amlodipine Besylate (Norvasc) 5 mg PO BID [facility] Last Admin: 03/18/18 06:19 Dose: 5 mg Heparin Sodium (Porcine) (Heparin) 5,000 units SC Q8H [facility]; Protocol Last Admin: 03/12/18 10:11 Dose: 5,000 units Ceftaroline Fosamil 600 mg/ (Sodium Chloride) 100 mls @ 100 mls/hr IVPB Q12 [facility] Last Admin: 03/18/18 09:08 Dose: 100 mls/hr Insulin Human Regular (Humulin R Med) 0 units SC ACHS [facility]; Protocol Last Admin: 03/18/18 09:05 Dose: Not Given Losartan Potassium (Cozaar) 25 mg PO DAILY [facility] Last Admin: 03/14/18 11:47 Dose: 25 mg Ondansetron HCl (Zofran Inj) 4 mg IVP ONCE PRN PRN Reason: Nausea/Vomiting Pantoprazole Sodium (Protonix Ec Tab) 20 mg PO 0600,1600 [facility] Last Admin: 03/18/18 06:14 Dose: 20 mg - Labs Labs: 03/17/18 06:40 03/17/18 06:40 PT 15.0 SECONDS (9.4-12.5) H 03/13/18 06:30 INR 1.30 03/13/18 06:30 APTT 38.5 Seconds (25.1-36.5) H 03/13/18 06:30 Attending/Attestation - Attestation I have personally seen and examined this patient.: Yes I have fully participated in the care of the patient.: Yes I have reviewed all pertinent clinical information, including history, physical exam and plan: Yes Notes (Text): 03/18/18 15:35 82 year old male with past medical history of PAD, COPD, hypertension, and chronic LE cellulitis who presented with complaint of left lower extremity cellulitis and gangrenous left 2nd distal phalanx. Foot MRI was consistent with 2nd proximal/middle phalanx osteomyelitis and wound culture grew MRSA. Patient is on IV antibiotics. ID and podiatry are following. He is s/p amputation of second digit POD #11. Patient went again to OR for further bone fragment excision at amputation site POD #5. Repeat cultures is growing MRSA. 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 Picc line is in place. Cardiology is following for bradycardia. Patient is asymptomatic. Not on beta blockers. Holter was applied which showed bradycardia, multiple skipped beats, and pauses. Plan is to transfer to telemetry unit and PPM tomorrow. He is on norvasc and cozaar for hypertension. Av Gibbs MD Hospitalist.
[2018-03-19] MEDS: Pantoprazole 20 mg EC Tab PO SCH ×2 (05:25→17:58)
--- NOTE | 2018-03-19 06:50 | CP.PCM.PN ---
Subjective - Date & Time of Evaluation Date of Evaluation: 03/19/18 Time of Evaluation: 06:20 - Subjective Subjective: Lying in bed, Awake, alert, no distress, denies chest pain Reason for consultation and follow up: Cardiac evaluation of bradycardia, status post revision of left 4th digit, malia-tachy arrythmia, for PPM Seen and examined by me and Objective - Vital Signs/Intake and Output Vital Signs (last 24 hours): Temp Pulse Resp BP Pulse Ox 98 F 39 L 20 155/98 H 98 03/18/18 22:00 03/18/18 22:00 03/18/18 22:00 03/18/18 22:00 03/18/18 22:00 Intake and Output: 03/18/18 03/19/18 18:59 06:59 Intake Total 180 Output Total 600 Balance -420 - Medications Medications: Current Medications Acetaminophen (Tylenol 325mg Tab) 650 mg PO Q4H PRN PRN Reason: Pain, Mild (1-3) Amlodipine Besylate (Norvasc) 5 mg PO BID [facility] Last Admin: 03/18/18 18:10 Dose: Not Given Heparin Sodium (Porcine) (Heparin) 5,000 units SC Q8H [facility]; Protocol Last Admin: 03/12/18 10:11 Dose: 5,000 units Ceftaroline Fosamil 600 mg/ (Sodium Chloride) 100 mls @ 100 mls/hr IVPB Q12 [facility] Last Admin: 03/18/18 22:05 Dose: 100 mls/hr Insulin Human Regular (Humulin R Med) 0 units SC ACHS [facility]; Protocol Last Admin: 03/18/18 22:30 Dose: Not Given Losartan Potassium (Cozaar) 25 mg PO DAILY [facility] Last Admin: 03/14/18 11:47 Dose: 25 mg Ondansetron HCl (Zofran Inj) 4 mg IVP ONCE PRN PRN Reason: Nausea/Vomiting Pantoprazole Sodium (Protonix Ec Tab) 20 mg PO 0600,1600 [facility] Last Admin: 03/19/18 05:25 Dose: 20 mg - Labs Labs: 03/17/18 06:40 03/17/18 06:40 PT 15.0 SECONDS (9.4-12.5) H 03/13/18 06:30 INR 1.30 03/13/18 06:30 APTT 38.5 Seconds (25.1-36.5) H 03/13/18 06:30 - Constitutional Appears: Non-toxic, No Acute Distress - Head Exam Head Exam: NORMAL INSPECTION, NORMOCEPHALIC - Eye Exam Eye Exam: Normal appearance Pupil Exam: NORMAL ACCOMODATION - ENT Exam ENT Exam: Mucous Membranes Moist - Respiratory Exam Respiratory Exam: Decreased Breath Sounds, Clear to Ausculation Bilateral, NORMAL BREATHING PATTERN - Cardiovascular Exam Cardiovascular Exam: +S1, +S2 - GI/Abdominal Exam GI & Abdominal Exam: Soft, Normal Bowel Sounds - Extremities Exam Additional comments: left foot dressing - Neurological Exam Neurological Exam: Alert, Awake, Oriented x3 - Psychiatric Exam Psychiatric exam: Normal Affect, Normal Mood - Skin Skin Exam: Dry, Normal Color, Warm Assessment and Plan - Assessment and Plan (Free Text) Assessment: An 82 year old male who wascame to the ER due to left toe wound. 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 Patient bradycardic and consult was called. Patient is not on betablocker. Placed on Holter monitor.Stress test as outpatient once better from toe surgery.Echo done.LVEF 55%,Aortic sclerosis Vs Mild As, mild mitral regurgitation,trace TR, moderate pulmonic valve regurgitation,no vegetation or thrombus. Initial placement of Holter unable to capture,so on Holter monitor x 24 hours, will follow up result Status post revision of left toe.Holter monitor showed multiple escape beats, Marked sinus malia arrythmia/junctional rhythm and escape beats, Minimum heart rate 30/min, maximum heart rate 97/min, 237 drop beats, longest R-R 2-8 seconds. For PPM, procedure scheduled for monday but requesting another blood culture (initial result negative) wound toe culture positive for MRSA. Will order blood culture. Plan: No distress, denies shortness of breath Hold PPM today, pending blood culture result. Toe wound culture positive for MRSA, on contact isolation Cardiac status stable Stable blood pressure Heart rate 40's-50's asymptomatic Status post revision of left toe On Norvasc 5 mg BID Continue antibiotics as ordered Continue current treatment Continue current medications Will follow up Plan and treatment discussed with Dr. Boggs
--- NOTE | 2018-03-19 07:48 | PN ---
DATE: 03/18/2018 SUBJECTIVE: The patient is in bed in no acute distress, nontoxic; is seen earlier today and is awake. PHYSICAL EXAMINATION: VITAL SIGNS: Temperature is 98, blood pressure is 180/60, and respiratory rate 20. HEENT: Unremarkable. NECK: Supple. LUNGS: Have decreased breath sounds. HEART: Normal S1 and S2. ABDOMEN: Soft. LABORATORY DATA: Reveals a white count of 7.8 and hemoglobin of 10, creatinine is 1.3. Microbiology reveals MRSA and review of orders reveals the patient to be on Teflaro. ASSESSMENT AND PLAN: This is an 82-year-old male who is with a left leg and foot cellulitis, second toe gangrene, osteomyelitis, methicillin-resistant Staphylococcus aureus, status post amputation, postprocedure day #9, and further debridement postprocedure day #5, severe osteomyelitis with renal disease, hypertension, coronary artery disease. Will need 4 to 6 weeks of antibiotics. Currently on Teflaro. Recommend a weekly CBC, SMA-18, sedimentation rate, and C-reactive protein. Wally Wylie MD
[2018-03-19 07:54] LABS: BASO # 0.02 K/mm3 (0.0-2.0); BASO % 0.3 % (0.0-3.0); EOS # 0.3 (0.0-0.7); EOS % 3.5 % (1.5-5.0); GRAN # 5.18 (1.4-6.5); GRAN % 67.1 % (50.0-68.0); HEMOGLOBIN 10.8 g/dL (14.0-18.0); LYMPH # 1.7 (1.2-3.4); LYMPH % 21.7 % (22.0-35.0); MEAN CELL VOLUME 82.7 fl (80.0-105.0); MEAN CORPUSCULAR HEMOGLOBIN 26.7 pg (25.0-35.0); MEAN CORPUSCULAR HGB CONC 32.2 g/dl (31.0-37.0); MEAN PLATELET VOLUME 8.6 fl (7.0-11.0); MONO # 0.6 (0.1-0.6); MONO % 7.4 % (1.0-6.0); RBC 4.05 10^6/uL (3.5-6.1); RED CELL DISTRIBUTION WIDTH 13.6 % (11.5-14.5); WHITE BLOOD COUNT 7.7 10^3/uL (4.5-11.0)
[2018-03-19] MEDS: Insulin Reg-MEDIUM-Coverage SC SCH ×4 (08:00→23:04)
[2018-03-19 08:02] LABS: CALCIUM 8.8 mg/dL (8.4-10.5); INR 1.36; PARTIAL THROMBOPLASTIN TIME 37.1 Seconds (25.1-36.5); PROTHROMBIN TIME 15.7 SECONDS (9.4-12.5)
--- NOTE | 2018-03-19 08:29 | PROCN ---
DATE: 03/18/2018 The patient is in room 562, bed 1. This dictated addendum which already dictated by Alejandrina Astorga. The patient's second Holter monitor showed multiple pauses of 2.8 second and also the patient's heart rate went down to mid 30s. Although the patient is asymptomatic, but he needs a pacemaker. I discussed this the and the patient. They agreed. So, the patient is scheduled for permanent pacemaker insertion tomorrow. In the meantime, he will continue the therapy which we have already undertaken. The patient is on heparin 5000 units subcu every 8 hourly which has been put on hold now, losartan 25 mg daily, amlodipine 5 mg daily, Protonix 40 mg daily, ceftaroline 60 mg IV every 12 hours. Yousif York MD
[2018-03-19] MEDS: Ceftaroline 600 MG in Sodium Chloride 0.9% 100 ML IVPB SCH ×2 (11:11→21:46)
--- NOTE | 2018-03-19 12:16 | CP.PCM.PN ---
Subjective - Date & Time of Evaluation Date of Evaluation: 03/19/18 Time of Evaluation: 07:15 - Subjective Subjective: Sincere Aparicio, PGY-1 Progress Note for Hospitalist Service Patient seen and evaluated at bedside. Patient had no acute overnight events. Patient has no complaints of this time. Patient denies headache, chest pain, heart palpitations, shortness of breath, nausea, vomiting, constipation, diarrhea, dysuria, and hematuria. Patient's was contacted to update her on patient status. Objective - Vital Signs/Intake and Output Vital Signs (last 24 hours): Temp Pulse Resp BP Pulse Ox 98.2 F 46 L 18 158/68 H 95 03/19/18 06:00 03/19/18 06:00 03/19/18 06:00 03/19/18 11:20 03/19/18 06:00 Intake and Output: 03/19/18 03/19/18 06:59 18:59 Intake Total 180 Output Total 600 Balance -420 - Medications Medications: Current Medications Acetaminophen (Tylenol 325mg Tab) 650 mg PO Q4H PRN PRN Reason: Pain, Mild (1-3) Amlodipine Besylate (Norvasc) 5 mg PO BID [facility] Last Admin: 03/19/18 11:20 Dose: 5 mg Heparin Sodium (Porcine) (Heparin) 5,000 units SC Q8H [facility]; Protocol Last Admin: 03/12/18 10:11 Dose: 5,000 units Ceftaroline Fosamil 600 mg/ (Sodium Chloride) 100 mls @ 100 mls/hr IVPB Q12 [facility] Last Admin: 03/19/18 11:11 Dose: 100 mls/hr Insulin Human Regular (Humulin R Med) 0 units SC ACHS [facility]; Protocol Last Admin: 03/19/18 08:00 Dose: Not Given Losartan Potassium (Cozaar) 25 mg PO DAILY [facility] Last Admin: 03/19/18 11:19 Dose: 25 mg Ondansetron HCl (Zofran Inj) 4 mg IVP ONCE PRN PRN Reason: Nausea/Vomiting Pantoprazole Sodium (Protonix Ec Tab) 20 mg PO 0600,1600 [facility] Last Admin: 03/19/18 05:25 Dose: 20 mg - Labs Labs: 03/19/18 07:40 03/19/18 07:40 PT 15.7 SECONDS (9.4-12.5) H 03/19/18 07:40 INR 1.36 03/19/18 07:40 APTT 37.1 Seconds (25.1-36.5) H 03/19/18 07:40 - Additional Findings Additional findings: - Constitutional Appears: Well, Non-toxic, No Acute Distress - Head Exam Head Exam: ATRAUMATIC, NORMAL INSPECTION, NORMOCEPHALIC - Eye Exam Eye Exam: EOMI, PERRL - Respiratory Exam Respiratory Exam: Clear to Ausculation Bilateral, NORMAL BREATHING PATTERN - Cardiovascular Exam Cardiovascular Exam: REGULAR RHYTHM - GI/Abdominal Exam GI & Abdominal Exam: Soft, Normal Bowel Sounds - Back Exam Back Exam: Full ROM - Neurological Exam Neurological Exam: Alert, Awake, CN II-XII Intact, Oriented x3 Neuro motor strength exam: Left Upper Extremity: 5, Right Upper Extremity: 5, Left Lower Extremity: 5, Right Lower Extremity: 5 Extremity: L foot wrapped , dressing for L second toe c/d/i Assessment and Plan - Assessment and Plan (Free Text) Assessment: 82 year old male with past medical history of peripheral artery disease, chronic LLE cellulitis, COPD, HTN, dementia, obesity presents to [facility] with complaints of LLE anterior tibial region cellulitis and black L foot 2nd distal phalanx. Amputation of L second phalanx done on 03/07. Patient is POD #10. Revision of L 2nd phalanx with removal of bone fragment POD#6. Plan: L foot 2nd distal phalax osteomyelitis/LLE cellulitis -MRI L foot: marrow edema in 2nd proximal and middle phalanx consistent with osteomyelitis -Postoperative left foot X ray: small, tiny fragments of bone at the surgical site -Wound cultures: MRSA -Blood cultures: negative after 5 days -Urine culture: negative -Procalcitonin on 03/01: 0.07 -Dr. Almendarez amputated 2nd metatarsal head of left foot on 03/08 which was revised on 03/13 with bone fragment excised. -ID, Dr. Wylie, recommends 4-6 weeks of Ceftaroline (day 19) with weekly ESR, CRP, CBC, and CMP. -PICC line was placed by 03/16. Bradycardia -HR ranging from 30 to mid 50s -Holter monitor placed on patient which showed sinus bradycardia, arrhythmia, junctional rhythm, and escape beats. Patient also had 237 dropped beats. -Patient will have permanent pacemaker placement today. -Hold beta blockers, cozaar. F/u cardio recs (Dr. Boggs/Dr. York) - F/u blood cultures Hypertension -BP: 129/47 -HHD diet -Norvasc 5 mg BID. Hold beta blockers and cozaar due to bradycardia. Normocytic Anemia -Hgb: 10.8 -Continue to monitor. History of prediabetes, diabetic peripheral neuropathy -Hemoglobin A1c: 6.2 -Low dose sliding scale insulin DVT/GI PPx: - Heparin 5000 q8 held - Protonix 20 mg daily Patient seen, case reviewed, and plan approved by Dr. Lao. Sincere Aparicio, PGY-1
--- NOTE | 2018-03-19 13:16 | CP.PCM.PN ---
Subjective - Date & Time of Evaluation Date of Evaluation: 03/19/18 Time of Evaluation: 13:16 - Subjective Subjective: Podiatry progress note for Dr. 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 Patient was resting comfortably and NAD. He denies any pain to surgical site. Denies any acute events overnight. Patient denies N/V/F/C/SOB/CP and has no other pedal complaints at this time. Objective - Vital Signs/Intake and Output Vital Signs (last 24 hours): Temp Pulse Resp BP Pulse Ox 98.2 F 46 L 18 158/68 H 95 03/19/18 06:00 03/19/18 06:00 03/19/18 06:00 03/19/18 11:20 03/19/18 06:00 Intake and Output: 03/19/18 03/19/18 06:59 18:59 Intake Total 180 Output Total 600 Balance -420 - Medications Medications: Current Medications Acetaminophen (Tylenol 325mg Tab) 650 mg PO Q4H PRN PRN Reason: Pain, Mild (1-3) Amlodipine Besylate (Norvasc) 5 mg PO BID [facility] Last Admin: 03/19/18 13:12 Dose: Not Given Heparin Sodium (Porcine) (Heparin) 5,000 units SC Q8H [facility]; Protocol Last Admin: 03/12/18 10:11 Dose: 5,000 units Ceftaroline Fosamil 600 mg/ (Sodium Chloride) 100 mls @ 100 mls/hr IVPB Q12 [facility] Last Admin: 03/19/18 11:11 Dose: 100 mls/hr Insulin Human Regular (Humulin R Med) 0 units SC ACHS [facility]; Protocol Last Admin: 03/19/18 13:11 Dose: Not Given Losartan Potassium (Cozaar) 25 mg PO DAILY [facility] Last Admin: 03/19/18 11:19 Dose: 25 mg Ondansetron HCl (Zofran Inj) 4 mg IVP ONCE PRN PRN Reason: Nausea/Vomiting Pantoprazole Sodium (Protonix Ec Tab) 20 mg PO 0600,1600 [facility] Last Admin: 03/19/18 05:25 Dose: 20 mg - Labs Labs: 03/19/18 07:40 03/19/18 07:40 PT 15.7 SECONDS (9.4-12.5) H 03/19/18 07:40 INR 1.36 03/19/18 07:40 APTT 37.1 Seconds (25.1-36.5) H 03/19/18 07:40 - Constitutional Appears: Well, Non-toxic, No Acute Distress - Head Exam Head Exam: ATRAUMATIC, NORMOCEPHALIC - Extremities Exam Additional comments: Bilateral lower extremities exam Vasc: faintly palpable pedal pulses bilaterally, Temp gradient warm to cool in the right side and warm to robotics engineer the left side. Cap refill < 3 sec to all remaining digits. No erythema noted. Mild non pitting edema noted to the left foot. Neuro: Gross and protective sensations are grossly diminished. Derm: Surgical site incision well coapted, sutures intact, no evidence of pus or purulent drainage, No drainage noted through the dressing, no openings or signs of wound dehiscence, no probing, no clinical signs of infection MSK: No pain on palpation of foot or legs bilaterally. Muscle power intact 5/5 to all groups b/l. 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 Discussed in detail with Dr. Hay Charts, labs ad vitals reviewed; Afebrile, absent leukocytosis Post operative left foot X-ray: small, tiny fragments of bone at the surgical site Wound cx 03/08 - MRSA Wound cx 03/13 - MRSA Continue IV Abx per ID Patient will need 4 weeks of IV Abx Pathology postop - fagments of bone with focal acute OM, fragments of fibrodense tissue with fibroconnective tissue . Continue pain management as needed Wound dressed using betadine, DSD and mignon bandage. Dimethicone cream applied to the RLE for dryness Patient seen by PT and evaluated - recommend [facility] for continued skilled PT and management. Podiatry will continue to follow up the patient while in house
--- NOTE | 2018-03-19 20:21 | CP.PCM.PN ---
Subjective - Date & Time of Evaluation Date of Evaluation: 03/19/18 Time of Evaluation: 08:35 - Subjective Subjective: No increase in left foot pain, no fevers, no nausea, no diarrhea. Objective - Vital Signs/Intake and Output Vital Signs (last 24 hours): Temp Pulse Resp BP Pulse Ox 97.6 F 34 L 20 105/50 L 96 03/18/18 06:00 03/18/18 18:10 03/18/18 06:00 03/18/18 18:10 03/18/18 06:00 - Medications Medications: Current Medications Acetaminophen (Tylenol 325mg Tab) 650 mg PO Q4H PRN PRN Reason: Pain, Mild (1-3) Amlodipine Besylate (Norvasc) 5 mg PO BID [facility] Last Admin: 03/18/18 18:10 Dose: Not Given Heparin Sodium (Porcine) (Heparin) 5,000 units SC Q8H [facility]; Protocol Last Admin: 03/12/18 10:11 Dose: 5,000 units Ceftaroline Fosamil 600 mg/ (Sodium Chloride) 100 mls @ 100 mls/hr IVPB Q12 [facility] Last Admin: 03/18/18 22:05 Dose: 100 mls/hr Insulin Human Regular (Humulin R Med) 0 units SC ACHS [facility]; Protocol Last Admin: 03/18/18 17:53 Dose: Not Given Losartan Potassium (Cozaar) 25 mg PO DAILY [facility] Last Admin: 03/14/18 11:47 Dose: 25 mg Ondansetron HCl (Zofran Inj) 4 mg IVP ONCE PRN PRN Reason: Nausea/Vomiting Pantoprazole Sodium (Protonix Ec Tab) 20 mg PO 0600,1600 [facility] Last Admin: 03/18/18 17:58 Dose: 20 mg - Labs Labs: 03/17/18 06:40 03/17/18 06:40 PT 15.0 SECONDS (9.4-12.5) H 03/13/18 06:30 INR 1.30 03/13/18 06:30 APTT 38.5 Seconds (25.1-36.5) H 03/13/18 06:30 - Constitutional Appears: Chronically Ill - Head Exam Head Exam: NORMAL INSPECTION - Respiratory Exam Respiratory Exam: Decreased Breath Sounds - Cardiovascular Exam Cardiovascular Exam: +S1, +S2 - GI/Abdominal Exam GI & Abdominal Exam: Soft. absent: Tenderness - Extremities Exam Additional comments: left foot with dressings in place Assessment and Plan - Assessment and Plan (Free Text) Plan: Assessment left leg and foot cellulitis and 2nd toe gangrene, with osteomyelitis with MRSA S/P amputation, S/P further debridement - margins of bone still with o steomyelitis even on latest debridement history of Group G strep bacteremia, probably secondary to bilateral lower extremities skin and skin structure infection; history of rhabdomyolysis CAD HTN chronic renal failure dementia obesity with BMI 32 Plan continue Teflaro and will need at least 4-6 weeks of antibiotics with weekly ESR, CRP, CBC, CMP to be followed by the wound care center while on antibiotics - discussed with Dr. Almendarez today
--- NOTE | 2018-03-19 20:35 | PN ---
DATE: 03/19/2018 SEX OF THE PATIENT: Male. AGE OF THE PATIENT: 82. TYPE OF DICTATION: Progress note. REFERRING PHYSICIAN: REASON FOR CONSULTATION: Followup, cardiac evaluation, bradycardia, status post revision of the left fourth digit, malia-tachy syndrome, on PPM, multiple pauses, the longest being 2.8 seconds, is scheduled for pacemaker today, family refused, wanted to wait for the blood culture. SUBJECTIVE: The patient denies any chest pain, shortness of breath or any palpitation. PHYSICAL EXAMINATION: VITAL SIGNS: Temperature is afebrile, heart rate 51, and blood pressure 115/53. HEENT: PERRLA, intact. NECK: Supple. No carotid bruit or thyromegaly. CHEST: Clear to auscultation. HEART: S1 and S2 are regular. ABDOMEN: Soft. EXTREMITIES: Clubbing and cyanosis negative. LABORATORY DATA: Blood workup as follows: WBC 7.3, hemoglobin 10.8, hematocrit 33.5, and platelet count 165. Chemistry shows sodium 130, potassium 4.3, chloride 109, carbon dioxide 26, anion gap of 9, BUN 30, and creatinine 1.5. IMPRESSION: This is an 82-year-old male with past medical history significant for morbid obesity, admitted with revision of fourth digit sepsis osteomyelitis. The patient underwent Holter monitor, which shows multiple pauses, so the patient is scheduled for pacemaker today, but the family and wanted to repeat the blood culture though first culture was negative, hence the pacemaker is on hold. We left the message twice to the family, waiting for the response. If the family does not want the pacemaker, we will take him off from the list and possible discharge. We will discuss with follow with you. Avoid rate-limiting calcium channel randi and beta-randi. This note is in addition to dictated by the nurse practitioner, Alejandrina Astorga. Yousif Boggs MD
[2018-03-20] MEDS: Pantoprazole 20 mg EC Tab PO SCH ×2 (05:51→16:00)
[2018-03-20 06:21] LABS: BASO # 0.03 K/mm3 (0.0-2.0); BASO % 0.4 % (0.0-3.0); EOS # 0.3 (0.0-0.7); EOS % 4.7 % (1.5-5.0); GRAN # 4.64 (1.4-6.5); GRAN % 66.3 % (50.0-68.0); HEMOGLOBIN 10.9 g/dL (14.0-18.0); LYMPH # 1.5 (1.2-3.4); MEAN CELL VOLUME 82.6 fl (80.0-105.0); MEAN CORPUSCULAR HEMOGLOBIN 26.8 pg (25.0-35.0); MEAN CORPUSCULAR HGB CONC 32.4 g/dl (31.0-37.0); MEAN PLATELET VOLUME 8.7 fl (7.0-11.0); MONO # 0.5 (0.1-0.6); MONO % 7.6 % (1.0-6.0); RBC 4.07 10^6/uL (3.5-6.1); RED CELL DISTRIBUTION WIDTH 13.8 % (11.5-14.5)
[2018-03-20 06:42] LABS: ALBUMIN 3.3 g/dL (3.0-4.8); CALCIUM 8.9 mg/dL (8.4-10.5)
[2018-03-20] MEDS: Insulin Reg-MEDIUM-Coverage SC SCH ×4 (09:51→22:23)
[2018-03-20] MEDS: Ceftaroline 600 MG in Sodium Chloride 0.9% 100 ML IVPB SCH ×2 (09:52→23:13)
--- NOTE | 2018-03-20 09:58 | CP.PCM.PN ---
Subjective - Date & Time of Evaluation Date of Evaluation: 03/20/18 Time of Evaluation: 08:55 - Subjective Subjective: Afebrile, not in distress, no increased pain in the left foot, no nausea, no diarrhea. Objective - Vital Signs/Intake and Output Vital Signs (last 24 hours): Temp Pulse Resp BP Pulse Ox 97.7 F 51 L 20 156/68 H 34 L 03/19/18 14:00 03/19/18 14:00 03/19/18 14:00 03/19/18 17:55 03/19/18 14:00 - Medications Medications: Current Medications Acetaminophen (Tylenol 325mg Tab) 650 mg PO Q4H PRN PRN Reason: Pain, Mild (1-3) Amlodipine Besylate (Norvasc) 5 mg PO BID [facility] Last Admin: 03/19/18 17:55 Dose: 5 mg Heparin Sodium (Porcine) (Heparin) 5,000 units SC Q8H [facility]; Protocol Last Admin: 03/12/18 10:11 Dose: 5,000 units Ceftaroline Fosamil 600 mg/ (Sodium Chloride) 100 mls @ 100 mls/hr IVPB Q12 [facility] Last Admin: 03/19/18 11:11 Dose: 100 mls/hr Insulin Human Regular (Humulin R Med) 0 units SC ACHS [facility]; Protocol Last Admin: 03/19/18 17:21 Dose: Not Given Losartan Potassium (Cozaar) 25 mg PO DAILY [facility] Last Admin: 03/19/18 11:19 Dose: 25 mg Ondansetron HCl (Zofran Inj) 4 mg IVP ONCE PRN PRN Reason: Nausea/Vomiting Pantoprazole Sodium (Protonix Ec Tab) 20 mg PO 0600,1600 [facility] Last Admin: 03/19/18 17:58 Dose: 20 mg - Labs Labs: 03/19/18 07:40 03/19/18 07:40 PT 15.7 SECONDS (9.4-12.5) H 03/19/18 07:40 INR 1.36 03/19/18 07:40 APTT 37.1 Seconds (25.1-36.5) H 03/19/18 07:40 - Constitutional Appears: Non-toxic, Chronically Ill - Head Exam Head Exam: NORMAL INSPECTION - Neck Exam Neck Exam: absent: Meningismus - Respiratory Exam Respiratory Exam: Decreased Breath Sounds - Cardiovascular Exam Cardiovascular Exam: +S1, +S2 - GI/Abdominal Exam GI & Abdominal Exam: Soft. absent: Tenderness - Extremities Exam Additional comments: left foot with dressings in place Assessment and Plan - Assessment and Plan (Free Text) Plan: Assessment left leg and foot cellulitis and 2nd toe gangrene, with osteomyelitis with MRSA S/P amputation, S/P further debridement - margins of bone still with osteomyelitis even on latest debridement history of Group G strep bacteremia, probably secondary to bilateral lower extremities skin and skin structure infection; history of rhabdomyolysis CAD HTN chronic renal failure dementia obesity with BMI 32 Plan continue Teflaro and will need at least 4-6 weeks of antibiotics with weekly ESR, CRP, CBC, CMP to be followed by the wound care center while on antibiotics - discussed with Dr. Almendarez previously
--- NOTE | 2018-03-20 13:58 | PN ---
DATE: 03/20/2018 SEX OF THE PATIENT: Male. AGE OF THE PATIENT: 82. TYPE OF DICTATION: Progress note. DICTATING PHYSICIAN: Yousif Boggs MD. REASON FOR DICTATION: Cardiac evaluation, bradycardia, status post revision of the fourth digit is scheduled for pacemaker, family wanted to hold for next 48 hours. Blood culture remains negative. PHYSICAL EXAMINATION: VITAL SIGNS: Temperature is afebrile, heart rate 37, and blood pressure 135/58. HEENT: PERRLA. Extraocular muscles intact. NECK: Supple. No carotid bruit or thyromegaly. CHEST: Clear to auscultation. HEART: S1 and S2 are regular. ABDOMEN: Soft. EXTREMITIES: Clubbing and cyanosis negative. LABORATORY DATA: Blood workup as follows; WBC 7.0, hemoglobin 10.9, hematocrit 33.6, and platelet count 157. Chemistry shows sodium 139, potassium 4.3, chloride 108, carbon dioxide 27, anion gap of 9, BUN 30, creatinine 1.4. Telemetry shows a junctional malia rate of 39, blood pressure was 184/62, repeat blood culture 24 hours negative. IMPRESSION AND PLAN: An 82-year-old male with past medical history significant for morbid obesity, admitted to the revision of fourth digit sepsis osteomyelitis. Underwent Holter monitor without the bradycardia found to be multiple pauses 2.8 second. The patient is scheduled for pacemaker yesterday, but the family () wanted to hold it off and want to repeat blood culture though on admission the first blood culture was negative, but wound culture was positive methicillin-resistant Staphylococcus aureus, length of discussion with was very much adamant to getting blood culture wait for 48 hours, so blood culture was sent yesterday first 24 hours still negative. Discussed in length again second sitting done yesterday wanted to wait for 48 hours, so 48 hours be today 6 p.m. so we will scheduled for pacemaker tomorrow if the blood culture remains negative, which was negative to begin with. Avoid rate-limiting calcium channel randi and beta randi and discussed with Dr. Lao primary care physician. I did informed with the patient's . So we will keep n.p.o. after 12 midnight for pacemaker tomorrow. I would put low-dose of dopamine 2.5 to prevent any further episode of bradyarrhythmia. Thank you Dr. Lao for providing us the opportunity in taking care of the patient, Kimberly Rowley. Yousif Boggs MD
--- NOTE | 2018-03-20 14:11 | CP.PCM.PN ---
<Sanju Ruelas - Last Filed: 03/20/18 14:07> Subjective - Date & Time of Evaluation Date of Evaluation: 03/20/18 Time of Evaluation: 14:07 - Subjective Subjective: Podiatry progress note for Dr. 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 Patient was resting comfortably and NAD. He denies any pain to surgical site. Denies any acute events overnight. Patient denies N/V/F/C/SOB/CP and has no other pedal complaints at this time. Patient and daughter were present at the bedside. Objective - Vital Signs/Intake and Output Vital Signs (last 24 hours): Temp Pulse Resp BP Pulse Ox 98.4 F 52 L 20 166/46 H 97 03/20/18 12:00 03/20/18 13:45 03/20/18 12:00 03/20/18 13:45 03/20/18 06:00 Intake and Output: 03/20/18 03/20/18 06:59 18:59 Intake Total 120 Output Total 700 Balance -580 - Medications Medications: Current Medications Acetaminophen (Tylenol 325mg Tab) 650 mg PO Q4H PRN PRN Reason: Pain, Mild (1-3) Amlodipine Besylate (Norvasc) 5 mg PO BID [facility] Last Admin: 03/20/18 09:51 Dose: Not Given Heparin Sodium (Porcine) (Heparin) 5,000 units SC Q8H [facility]; Protocol Last Admin: 03/12/18 10:11 Dose: 5,000 units Ceftaroline Fosamil 600 mg/ (Sodium Chloride) 100 mls @ 100 mls/hr IVPB Q12 [facility] Last Admin: 03/20/18 09:52 Dose: 100 mls/hr Dopamine HCl/Dextrose (Dopamine 400mg/250ml D5w) 400 mg in 250 mls @ 9.606 mls/hr IV .Q24H [facility] Last Admin: 03/20/18 11:53 Dose: 9.606 mls/hr Insulin Human Regular (Humulin R Med) 0 units SC ACHS [facility]; Protocol Last Admin: 03/20/18 09:51 Dose: Not Given Losartan Potassium (Cozaar) 25 mg PO DAILY [facility] Last Admin: 03/20/18 09:52 Dose: 25 mg Ondansetron HCl (Zofran Inj) 4 mg IVP ONCE PRN PRN Reason: Nausea/Vomiting Pantoprazole Sodium (Protonix Ec Tab) 20 mg PO 0600,1600 [facility] Last Admin: 03/20/18 05:51 Dose: 20 mg - Labs Labs: 03/20/18 05:57 03/20/18 05:57 PT 15.7 SECONDS (9.4-12.5) H 03/19/18 07:40 INR 1.36 03/19/18 07:40 APTT 37.1 Seconds (25.1-36.5) H 03/19/18 07:40 - Constitutional Appears: Well, Non-toxic, No Acute Distress - Head Exam Head Exam: ATRAUMATIC, NORMOCEPHALIC - Extremities Exam Additional comments: Bilateral lower extremities exam Vasc: faintly palpable pedal pulses bilaterally, Temp gradient warm to cool in the right side and warm to rubber insulator the left side. Cap refill < 3 sec to all remaining digits. No erythema noted. Mild non pitting edema noted to the left foot. Neuro: Gross and protective sensations are grossly diminished. Derm: Surgical site incision well coapted, sutures intact, no evidence of pus or purulent drainage, No drainage noted through the dressing, no openings or signs of wound dehiscence, no probing, no clinical signs of infection MSK: No pain on palpation of foot or legs bilaterally. Muscle power intact 5/5 to all groups b/l. 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 Discussed in detail with Dr. Almendarez Charts, labs ad vitals reviewed; Afebrile, absent leukocytosis Post operative left foot X-ray: small, tiny fragments of bone at the surgical site Wound cx 03/08 - MRSA Wound cx 03/13 - MRSA Continue IV Abx per ID Patient will need 4-6 weeks of IV Abx as per ID Pathology postop - fagments of bone with focal acute OM, fragments of fibrodense tissue with fibroconnective tissue . Continue pain management as needed Wound dressed using betadine, DSD and mignon bandage. Patient seen by PT and evaluated - recommend [facility] for continued skilled PT and management. Podiatry will continue to follow up the patient while in house <Luis Carlos Almendarez - Last Filed: 03/21/18 16:55> Objective - Vital Signs/Intake and Output Vital Signs (last 24 hours): Temp Pulse Resp BP Pulse Ox 95 F L 60 14 126/63 98 03/21/18 12:10 03/21/18 12:10 03/21/18 12:10 03/21/18 12:10 03/21/18 12:10 Intake and Output: 03/21/18 03/21/18 06:59 18:59 Intake Total 240 Output Total 300 Balance -60 - Medications Medications: Current Medications Acetaminophen (Tylenol 325mg Tab) 650 mg PO Q4H PRN PRN Reason: Pain, Mild (1-3) Amlodipine Besylate (Norvasc) 5 mg PO BID [facility] Last Admin: 03/21/18 14:16 Dose: Not Given Heparin Sodium (Porcine) (Heparin) 5,000 units SC Q8H [facility]; Protocol Last Admin: 03/12/18 10:11 Dose: 5,000 units Hydralazine HCl (Apresoline) 10 mg PO QID PRN PRN Reason: For sbp>160 Ceftaroline Fosamil 600 mg/ (Sodium Chloride) 100 mls @ 100 mls/hr IVPB Q12 [facility] Last Admin: 03/21/18 14:16 Dose: Not Given Insulin Human Regular (Humulin R Med) 0 units SC ACHS [facility]; Protocol Last Admin: 03/21/18 14:16 Dose: Not Given Losartan Potassium (Cozaar) 25 mg PO DAILY [facility] Last Admin: 03/20/18 09:52 Dose: 25 mg Ondansetron HCl (Zofran Inj) 4 mg IVP ONCE PRN PRN Reason: Nausea/Vomiting Pantoprazole Sodium (Protonix Ec Tab) 20 mg PO 0600,1600 [facility] Last Admin: 03/21/18 06:54 Dose: Not Given - Labs Labs: 03/21/18 05:28 03/21/18 05:28 PT 15.9 SECONDS (9.4-12.5) H 03/21/18 15:41 INR 1.39 03/21/18 15:41 APTT 38.9 Seconds (25.1-36.5) H 03/21/18 15:41 Attending/Attestation - Attestation I have personally seen and examined this patient.: Yes I have fully participated in the care of the patient.: Yes I have reviewed all pertinent clinical information, including history, physical exam and plan: Yes
--- NOTE | 2018-03-20 16:14 | CP.PCM.PN ---
<Sincere Aparicio - Last Filed: 03/20/18 16:20> Subjective - Date & Time of Evaluation Date of Evaluation: 03/20/18 Time of Evaluation: 08:00 - Subjective Subjective: Sincere Aparicio PGY-1 Progress Note for Hospitalist Service Patient seen and evaluated at bedside. Patient had no acute overnight events and denies complaints at this time. Patient denies headache, chest pain, heart palpitations, shortness of breath, nausea, vomiting, constipation, diarrhea, dysuria, and hematuria. Patient and were updated on plan for pacemaker placement tomorrow. Objective - Vital Signs/Intake and Output Vital Signs (last 24 hours): Temp Pulse Resp BP Pulse Ox 98.4 F 52 L 20 166/46 H 97 03/20/18 12:00 03/20/18 13:45 03/20/18 12:00 03/20/18 13:45 03/20/18 06:00 Intake and Output: 03/20/18 03/20/18 06:59 18:59 Intake Total 120 Output Total 700 Balance -580 - Medications Medications: Current Medications Acetaminophen (Tylenol 325mg Tab) 650 mg PO Q4H PRN PRN Reason: Pain, Mild (1-3) Amlodipine Besylate (Norvasc) 5 mg PO BID [facility] Last Admin: 03/20/18 09:51 Dose: Not Given Heparin Sodium (Porcine) (Heparin) 5,000 units SC Q8H [facility]; Protocol Last Admin: 03/12/18 10:11 Dose: 5,000 units Ceftaroline Fosamil 600 mg/ (Sodium Chloride) 100 mls @ 100 mls/hr IVPB Q12 [facility] Last Admin: 03/20/18 09:52 Dose: 100 mls/hr Dopamine HCl/Dextrose (Dopamine 400mg/250ml D5w) 400 mg in 250 mls @ 9.606 mls/hr IV .Q24H [facility] Last Admin: 03/20/18 11:53 Dose: 9.606 mls/hr Insulin Human Regular (Humulin R Med) 0 units SC ACHS [facility]; Protocol Last Admin: 03/20/18 09:51 Dose: Not Given Losartan Potassium (Cozaar) 25 mg PO DAILY [facility] Last Admin: 03/20/18 09:52 Dose: 25 mg Ondansetron HCl (Zofran Inj) 4 mg IVP ONCE PRN PRN Reason: Nausea/Vomiting Pantoprazole Sodium (Protonix Ec Tab) 20 mg PO 0600,1600 [facility] Last Admin: 03/20/18 05:51 Dose: 20 mg - Labs Labs: 03/20/18 05:57 03/20/18 05:57 PT 15.7 SECONDS (9.4-12.5) H 03/19/18 07:40 INR 1.36 03/19/18 07:40 APTT 37.1 Seconds (25.1-36.5) H 03/19/18 07:40 - Additional Findings Additional findings: - Constitutional Appears: Well, Non-toxic, No Acute Distress - Head Exam Head Exam: ATRAUMATIC, NORMAL INSPECTION, NORMOCEPHALIC - Eye Exam Eye Exam: EOMI, PERRL - Respiratory Exam Respiratory Exam: Clear to Ausculation Bilateral, NORMAL BREATHING PATTERN - Cardiovascular Exam Cardiovascular Exam: REGULAR RHYTHM - GI/Abdominal Exam GI & Abdominal Exam: Soft, Normal Bowel Sounds - Back Exam Back Exam: Full ROM - Neurological Exam Neurological Exam: Alert, Awake, CN II-XII Intact, Oriented x3 Neuro motor strength exam: Left Upper Extremity: 5, Right Upper Extremity: 5, Left Lower Extremity: 5, Right Lower Extremity: 5 Extremity: L foot wrapped , dressing for L second toe c/d/i Assessment and Plan - Assessment and Plan (Free Text) Assessment: 82 year old male with past medical history of peripheral artery disease, chronic LLE cellulitis, COPD, HTN, dementia, obesity presents to [facility] with complaints of LLE anterior tibial region cellulitis and black L foot 2nd distal phalanx. Amputation of L second phalanx done on 03/07. Patient is POD #11. Revision of L 2nd phalanx with removal of bone fragment POD#7. Plan: Bradycardia -HR ranging from 30 to mid 50s, Junctional sinus malia last night overnight -Holter monitor placed on patient on weekend which showed sinus bradycardia, arrhythmia, junctional rhythm, and escape beats. -Patient will have permanent pacemaker placement tomorrow if blood culture remains negative per family request, NPO after midnight - Dopamine 2.5 mg to prevent bradyarrythmia -Hold beta blockers, cozaar. F/u cardio recs (Dr. Boggs/Dr. York) - F/u blood cultures L foot 2nd distal phalax osteomyelitis/LLE cellulitis -MRI L foot: marrow edema in 2nd proximal and middle phalanx consistent with osteomyelitis -Postoperative left foot X ray: small, tiny fragments of bone at the surgical site -Wound cultures: MRSA -Blood cultures: negative after 5 days -Urine culture: negative -Procalcitonin on 03/01: 0.07 -Dr. Almendarez amputated 2nd metatarsal head of left foot on 03/08 which was revised on 03/13 with bone fragment excised. -ID, Dr. Wylie, recommends 4-6 weeks of Ceftaroline (day 20) with weekly ESR, CRP, CBC, and CMP. -PICC line was placed by 03/16. Hypertension -BP: 129/47 -HHD diet -Norvasc 5 mg BID. Hold beta blockers and cozaar due to bradycardia. Normocytic Anemia -Hgb: 10.9 -Continue to monitor. History of prediabetes, diabetic peripheral neuropathy -Hemoglobin A1c: 6.2 -Low dose sliding scale insulin DVT/GI PPx: - Heparin 5000 q8 held - Protonix 20 mg daily Patient seen, case reviewed and plan approved by Dr. Yañez. Sincere Aparicio, PGY-1 <José Luis Yañez - Last Filed: 03/21/18 16:48> Objective - Vital Signs/Intake and Output Vital Signs (last 24 hours): Temp Pulse Resp BP Pulse Ox 95 F L 60 14 126/63 98 03/21/18 12:10 03/21/18 12:10 03/21/18 12:10 03/21/18 12:10 03/21/18 12:10 Intake and Output: 03/21/18 03/21/18 06:59 18:59 Intake Total 240 Output Total 300 Balance -60 - Medications Medications: Current Medications Acetaminophen (Tylenol 325mg Tab) 650 mg PO Q4H PRN PRN Reason: Pain, Mild (1-3) Amlodipine Besylate (Norvasc) 5 mg PO BID [facility] Last Admin: 03/21/18 14:16 Dose: Not Given Heparin Sodium (Porcine) (Heparin) 5,000 units SC Q8H [facility]; Protocol Last Admin: 03/12/18 10:11 Dose: 5,000 units Hydralazine HCl (Apresoline) 10 mg PO QID PRN PRN Reason: For sbp>160 Ceftaroline Fosamil 600 mg/ (Sodium Chloride) 100 mls @ 100 mls/hr IVPB Q12 [facility] Last Admin: 03/21/18 14:16 Dose: Not Given Insulin Human Regular (Humulin R Med) 0 units SC ACHS [facility]; Protocol Last Admin: 03/21/18 14:16 Dose: Not Given Losartan Potassium (Cozaar) 25 mg PO DAILY [facility] Last Admin: 03/20/18 09:52 Dose: 25 mg Ondansetron HCl (Zofran Inj) 4 mg IVP ONCE PRN PRN Reason: Nausea/Vomiting Pantoprazole Sodium (Protonix Ec Tab) 20 mg PO 0600,1600 [facility] Last Admin: 03/21/18 06:54 Dose: Not Given - Labs Labs: 03/21/18 05:28 03/21/18 05:28 PT 15.9 SECONDS (9.4-12.5) H 03/21/18 15:41 INR 1.39 03/21/18 15:41 APTT 38.9 Seconds (25.1-36.5) H 03/21/18 15:41 Attending/Attestation - Attestation I have personally seen and examined this patient.: Yes I have fully participated in the care of the patient.: Yes I have reviewed all pertinent clinical information, including history, physical exam and plan: Yes Notes (Text): 82 year old male with past medical history of peripheral artery disease, chronic LLE cellulitis, COPD, HTN, dementia, obesity presents to [facility] with complaints of LLE anterior tibial region cellulitis and black L foot 2nd distal phalanx. Amputation of L second phalanx done on 03/07. Osteomyelitis Bradycardia HTN Anemia Diabetes s/p multiple toes amputation c/w abx as per ID recommendations Cardio on board for placement of PPM on 03/21 Avoid AV devyn blockers c/w RISS
[2018-03-21 06:06] LABS: BASO # 0.02 K/mm3 (0.0-2.0); BASO % 0.3 % (0.0-3.0); EOS # 0.4 (0.0-0.7); EOS % 4.6 % (1.5-5.0); GRAN # 5.12 (1.4-6.5); GRAN % 67.9 % (50.0-68.0); HEMOGLOBIN 10.6 g/dL (14.0-18.0); LYMPH # 1.3 (1.2-3.4); LYMPH % 17.7 % (22.0-35.0); MEAN CELL VOLUME 82.3 fl (80.0-105.0); MEAN CORPUSCULAR HEMOGLOBIN 26.4 pg (25.0-35.0); MEAN CORPUSCULAR HGB CONC 32.1 g/dl (31.0-37.0); MEAN PLATELET VOLUME 8.6 fl (7.0-11.0); MONO # 0.7 (0.1-0.6); MONO % 9.5 % (1.0-6.0); RBC 4.01 10^6/uL (3.5-6.1); RED CELL DISTRIBUTION WIDTH 13.8 % (11.5-14.5); WHITE BLOOD COUNT 7.6 10^3/uL (4.5-11.0)
[2018-03-21 06:20] LABS: ALBUMIN 3.2 g/dL (3.0-4.8); ALT/SGPT 23 U/L (7-56); AST/SGOT 26 U/L (17-59); BLOOD UREA NITROGEN 31 mg/dL (7-21); CALCIUM 8.9 mg/dL (8.4-10.5); GFR NON-AFRICAN AMERICAN 53
[2018-03-21] MEDS: Pantoprazole 20 mg EC Tab PO SCH ×2 (06:54→17:35)
[2018-03-21] MEDS ORDERED: Lidocaine 2% Inj (20ml) ONE (09:06)
[2018-03-21] MEDS ORDERED: Phenylephrine 10 mg/ml Inj ONE (09:08)
[2018-03-21] MEDS ORDERED: Midazolam 2 MG/2 ML VIAL ONE ×2 (09:36→10:10)
[2018-03-21] MEDS ORDERED: Naloxone 0.4 mg/ml Inj (Adult) ONE (10:19)
[2018-03-21] MEDS ORDERED: Flumazenil 0.1 mg/ml Inj (5ml) IVP ONE (10:19)
[2018-03-21] MEDS ORDERED: Sodium Chloride 0.9% 1,000 ML IV SCH (11:00)
--- NOTE | 2018-03-21 11:21 | CPOSTOP ---
CARDIOVASCULAR LAB POSTPROCEDURE NOTE DATE: 03/21/2018 PHYSICIAN: Dr. Lubna Boggs. AIRLINE ATTENDANT: CEE Pope. TYPE OF ANESTHESIA: Moderate conscious sedation, total 3 mg of Versed and 100 of fentanyl given periodically. Started 1 mg of Versed and 50 of fentanyl. PRE-PROCEDURE DIAGNOSES: Sick sinus syndrome, tachy-malia syndrome, symptomatic bradycardia, multiple pause. PROCEDURE PERFORMED: 1. Implantation of pacemaker, permanent. 2. Single chamber VVI MRI, safe. FINDINGS: Symptomatic bradycardia, pacemaker dependent. FINAL DIAGNOSIS: Pacemaker dependent. POST PROCEDURE CONDITION: The post procedure patient condition is stable. VASCULAR ACCESS SITE: Left subclavian vein. CLOSURE DEVICE: Stitch and Dermabond applied. TOTAL RADIATION DOSE: 4266.88 milligray unit. TOTAL FLUORO TIME: 7.2 minutes. Yousif Boggs MD
--- NOTE | 2018-03-21 11:39 | RAD ---
Date of service: 03/21/2018 HISTORY: Post Pacemaker COMPARISON: 03/13/2018 FINDINGS: The right PICC line terminates in the SVC. LUNGS: The lungs are well inflated. There is moderate pulmonary venous congestion and mild interstitial pulmonary edema. No focal consolidation. PLEURA: No pleural effusions or pneumothorax. CARDIOVASCULAR: The heart is normal in size. No aortic atherosclerotic calcification present. There is interval placement of a unipolar permanent pacing device with leads terminating in the right ventricle OSSEOUS STRUCTURES: Within normal limits for the patient's age. VISUALIZED UPPER ABDOMEN: Normal. OTHER FINDINGS: None. IMPRESSION: Interval placement of left-sided unipolar permanent pacing device with lead terminating in the right ventricle.
--- NOTE | 2018-03-21 13:29 | CP.PCM.PN ---
Subjective - Date & Time of Evaluation Date of Evaluation: 03/21/18 Time of Evaluation: 13:25 - Subjective Subjective: Podiatry progress note for Dr. Hay 82 y/o M patient seen and evaluated at the bedside 8 days S/P revision of left second digit amputation with met head resection. Patient was resting comfortably and NAD. He denies any pain to surgical site. Denies any acute events overnight. Patient denies N/V/F/C/SOB/CP and has no other pedal complaints at this time. Patient seen after he had Pacemaker insertion today. Objective - Vital Signs/Intake and Output Vital Signs (last 24 hours): Temp Pulse Resp BP Pulse Ox 95 F L 60 14 126/63 98 03/21/18 12:10 03/21/18 12:10 03/21/18 12:10 03/21/18 12:10 03/21/18 12:10 Intake and Output: 03/21/18 03/21/18 06:59 18:59 Intake Total 240 Output Total 300 Balance -60 - Medications Medications: Current Medications Acetaminophen (Tylenol 325mg Tab) 650 mg PO Q4H PRN PRN Reason: Pain, Mild (1-3) Amlodipine Besylate (Norvasc) 5 mg PO BID [facility] Last Admin: 03/20/18 17:47 Dose: 5 mg Heparin Sodium (Porcine) (Heparin) 5,000 units SC Q8H [facility]; Protocol Last Admin: 03/12/18 10:11 Dose: 5,000 units Hydralazine HCl (Apresoline) 10 mg PO QID PRN PRN Reason: For sbp>160 Ceftaroline Fosamil 600 mg/ (Sodium Chloride) 100 mls @ 100 mls/hr IVPB Q12 [facility] Last Admin: 03/20/18 23:13 Dose: 100 mls/hr Insulin Human Regular (Humulin R Med) 0 units SC ACHS [facility]; Protocol Last Admin: 03/20/18 22:23 Dose: Not Given Losartan Potassium (Cozaar) 25 mg PO DAILY [facility] Last Admin: 03/20/18 09:52 Dose: 25 mg Ondansetron HCl (Zofran Inj) 4 mg IVP ONCE PRN PRN Reason: Nausea/Vomiting Pantoprazole Sodium (Protonix Ec Tab) 20 mg PO 0600,1600 [facility] Last Admin: 03/21/18 06:54 Dose: Not Given - Labs Labs: 03/21/18 05:28 03/21/18 05:28 PT 15.7 SECONDS (9.4-12.5) H 03/19/18 07:40 INR 1.36 03/19/18 07:40 APTT 37.1 Seconds (25.1-36.5) H 03/19/18 07:40 - Constitutional Appears: Well, Non-toxic, No Acute Distress - Head Exam Head Exam: ATRAUMATIC, NORMOCEPHALIC - Extremities Exam Additional comments: Left lower extremity focused exam Surgical site dressing looks C/D/I with no strike through Vasc: Cap refill < 3 sec to all remaining digits. Neuro: Gross and protective sensations are grossly diminished. MSK: Patient could perform active ROM with the remaining digits. - Neurological Exam Neurological Exam: Alert, Awake, Oriented x3 - Psychiatric Exam Psychiatric exam: Normal Affect, Normal Mood Assessment and Plan - Assessment and Plan (Free Text) Assessment: 82 y/o M patient seen and evaluated at the bedside 8 days S/P revision of left second digit amputation with met head resection Plan: Patient seen and evaluated at bedside. Discussed in detail with Dr. Hay Charts, labs ad vitals reviewed; Afebrile, absent leukocytosis Post operative left foot X-ray: small, tiny fragments of bone at the surgical site Wound cx 03/08 - MRSA Wound cx 03/13 - MRSA Continue IV Abx per ID Patient will need 4-6 weeks of IV Abx as per ID Pathology postop - fagments of bone with focal acute OM, fragments of fibrodense tissue with fibroconnective tissue . Continue pain management as needed Patient had Pacemaker insertion today. Surgical site dressing looks C/D/I with no strike through No dressing change done for the surgical site today. Patient seen by PT and evaluated - recommend [facility] for continued skilled PT and management. Podiatry will continue to follow up the patient while in house
[2018-03-21] MEDS: Insulin Reg-MEDIUM-Coverage SC SCH ×4 (14:15→22:40)
[2018-03-21] MEDS: Ceftaroline 600 MG in Sodium Chloride 0.9% 100 ML IVPB SCH ×2 (14:16→22:42)
--- NOTE | 2018-03-21 15:20 | CP.PCM.PN ---
<Sincere Aparicio - Last Filed: 03/21/18 15:33> Subjective - Date & Time of Evaluation Date of Evaluation: 03/21/18 Time of Evaluation: 07:30 - Subjective Subjective: Sinceer Aparicio PGY-1 Progress Note for Hospitalist Service Patient seen and evaluated at bedside. Patient had no acute overnight events and denies complaints at this time. Patient denies headache, chest pain, heart palpitations, shortness of breath, nausea, vomiting, constipation, diarrhea, dysuria, and hematuria. Patient is s/p pacemaker placement this morning. Objective - Vital Signs/Intake and Output Vital Signs (last 24 hours): Temp Pulse Resp BP Pulse Ox 95 F L 60 14 126/63 98 03/21/18 12:10 03/21/18 12:10 03/21/18 12:10 03/21/18 12:10 03/21/18 12:10 Intake and Output: 03/21/18 03/21/18 06:59 18:59 Intake Total 240 Output Total 300 Balance -60 - Medications Medications: Current Medications Acetaminophen (Tylenol 325mg Tab) 650 mg PO Q4H PRN PRN Reason: Pain, Mild (1-3) Amlodipine Besylate (Norvasc) 5 mg PO BID [facility] Last Admin: 03/21/18 14:16 Dose: Not Given Heparin Sodium (Porcine) (Heparin) 5,000 units SC Q8H [facility]; Protocol Last Admin: 03/12/18 10:11 Dose: 5,000 units Hydralazine HCl (Apresoline) 10 mg PO QID PRN PRN Reason: For sbp>160 Ceftaroline Fosamil 600 mg/ (Sodium Chloride) 100 mls @ 100 mls/hr IVPB Q12 [facility] Last Admin: 03/21/18 14:16 Dose: Not Given Insulin Human Regular (Humulin R Med) 0 units SC ACHS [facility]; Protocol Last Admin: 03/21/18 14:16 Dose: Not Given Losartan Potassium (Cozaar) 25 mg PO DAILY [facility] Last Admin: 03/20/18 09:52 Dose: 25 mg Ondansetron HCl (Zofran Inj) 4 mg IVP ONCE PRN PRN Reason: Nausea/Vomiting Pantoprazole Sodium (Protonix Ec Tab) 20 mg PO 0600,1600 [facility] Last Admin: 03/21/18 06:54 Dose: Not Given - Labs Labs: 03/21/18 05:28 03/21/18 05:28 PT 15.7 SECONDS (9.4-12.5) H 03/19/18 07:40 INR 1.36 03/19/18 07:40 APTT 37.1 Seconds (25.1-36.5) H 03/19/18 07:40 - Additional Findings Additional findings: - Constitutional Appears: Well, Non-toxic, No Acute Distress - Head Exam Head Exam: ATRAUMATIC, NORMAL INSPECTION, NORMOCEPHALIC - Eye Exam Eye Exam: EOMI, PERRL - Respiratory Exam Respiratory Exam: Clear to Ausculation Bilateral, NORMAL BREATHING PATTERN, Pacemaker scar in L upper chest, no discharge or blood noted - Cardiovascular Exam Cardiovascular Exam: REGULAR RHYTHM - GI/Abdominal Exam GI & Abdominal Exam: Soft, Normal Bowel Sounds - Back Exam Back Exam: Full ROM - Neurological Exam Neurological Exam: Alert, Awake, CN II-XII Intact, Oriented x3 Neuro motor strength exam: Left Upper Extremity: 5, Right Upper Extremity: 5, Left Lower Extremity: 5, Right Lower Extremity: 5 Extremity: L foot wrapped , dressing for L second toe c/d/i Assessment and Plan - Assessment and Plan (Free Text) Assessment: 82 year old male with past medical history of peripheral artery disease, chronic LLE cellulitis, COPD, HTN, dementia, obesity presents to [facility] with complaints of LLE anterior tibial region cellulitis and black L foot 2nd distal phalanx. Amputation of L second phalanx done on 03/07. Patient is POD #12. Revision of L 2nd phalanx with removal of bone fragment POD#8. Pacemaker placed in left upper chest this morning by Dr. Boggs. Plan: Pacemaker Placement, single chamber (MRI safe per report) s/p bradycardia - F/u final procedure report per Dr. Boggs - HOB elevated - f/u vital sign q2x2 - Repeat EKG shows ventricular pacemaker, HR @ 60 bpm, QTc 524 - Chest two view in AM to r/o pneumo Bradycardia -HR ranging from 30 to mid 50s, Junctional sinus malia last night overnight -Holter monitor placed on patient on weekend which showed sinus bradycardia, arrhythmia, junctional rhythm, and escape beats. - Dopamine 2.5 mg to prevent bradyarrythmia - discontinued earlier today -Hold beta blockers, cozaar. F/u cardio recs (Dr. Boggs) - blood cultures prelim neg after 48 hours L foot 2nd distal phalax osteomyelitis/LLE cellulitis -MRI L foot: marrow edema in 2nd proximal and middle phalanx consistent with osteomyelitis -Postoperative left foot X ray: small, tiny fragments of bone at the surgical site -Wound cultures: MRSA -Blood cultures: negative after 5 days -Urine culture: negative -Procalcitonin on 03/01: 0.07 -Dr. Almendarez amputated 2nd metatarsal head of left foot on 03/08 which was revised on 03/13 with bone fragment excised. -ID, Dr. Wylie, recommends 4-6 weeks of Ceftaroline (day 21) with weekly ESR, CRP, CBC, and CMP. -PICC line was placed by 03/16. Hypertension -BP: 126/63 -HHD diet -Norvasc 5 mg BID. Hold beta blockers and cozaar due to bradycardia. Normocytic Anemia -Hgb: 10.6, stable -Continue to monitor. History of prediabetes, diabetic peripheral neuropathy -Hemoglobin A1c: 6.2 -Low dose sliding scale insulin DVT/GI PPx: - Heparin 5000 q8 held - Protonix 20 mg [facility] [place] Patient seen, case reviewed and plan approved by Dr. Yañez. Sincere Aparicio, PGY-1 <José Luis Yañez - Last Filed: 03/21/18 16:50> Objective - Vital Signs/Intake and Output Vital Signs (last 24 hours): Temp Pulse Resp BP Pulse Ox 95 F L 60 14 126/63 98 03/21/18 12:10 03/21/18 12:10 03/21/18 12:10 03/21/18 12:10 03/21/18 12:10 Intake and Output: 03/21/18 03/21/18 06:59 18:59 Intake Total 240 Output Total 300 Balance -60 - Medications Medications: Current Medications Acetaminophen (Tylenol 325mg Tab) 650 mg PO Q4H PRN PRN Reason: Pain, Mild (1-3) Amlodipine Besylate (Norvasc) 5 mg PO BID [facility] Last Admin: 03/21/18 14:16 Dose: Not Given Heparin Sodium (Porcine) (Heparin) 5,000 units SC Q8H [facility]; Protocol Last Admin: 03/12/18 10:11 Dose: 5,000 units Hydralazine HCl (Apresoline) 10 mg PO QID PRN PRN Reason: For sbp>160 Ceftaroline Fosamil 600 mg/ (Sodium Chloride) 100 mls @ 100 mls/hr IVPB Q12 [facility] Last Admin: 03/21/18 14:16 Dose: Not Given Insulin Human Regular (Humulin R Med) 0 units SC ACHS [facility]; Protocol Last Admin: 03/21/18 14:16 Dose: Not Given Losartan Potassium (Cozaar) 25 mg PO DAILY [facility] Last Admin: 03/20/18 09:52 Dose: 25 mg Ondansetron HCl (Zofran Inj) 4 mg IVP ONCE PRN PRN Reason: Nausea/Vomiting Pantoprazole Sodium (Protonix Ec Tab) 20 mg PO 0600,1600 [facility] Last Admin: 03/21/18 06:54 Dose: Not Given - Labs Labs: 03/21/18 05:28 03/21/18 05:28 PT 15.9 SECONDS (9.4-12.5) H 03/21/18 15:41 INR 1.39 03/21/18 15:41 APTT 38.9 Seconds (25.1-36.5) H 03/21/18 15:41 Attending/Attestation - Attestation I have personally seen and examined this patient.: Yes I have fully participated in the care of the patient.: Yes I have reviewed all pertinent clinical information, including history, physical exam and plan: Yes Notes (Text): 82 year old male with past medical history of peripheral artery disease, chronic LLE cellulitis, COPD, HTN, dementia, obesity presents to [facility] with complaints of LLE anterior tibial region cellulitis and black L foot 2nd distal phalanx. Amputation of L second phalanx done on 03/07. Osteomyelitis Bradycardia HTN Anemia Diabetes s/p multiple toes amputation c/w abx as per ID recommendations Cardio on board s/p PPM placement today will f/u post-op CXR c/w RISS
[2018-03-21 15:54] LABS: INR 1.39; PARTIAL THROMBOPLASTIN TIME 38.9 Seconds (25.1-36.5); PROTHROMBIN TIME 15.9 SECONDS (9.4-12.5)
--- NOTE | 2018-03-21 16:00 | CP.PCM.APN ---
Subjective - Date & Time of Evaluation Date of Evaluation: 03/21/18 Time of Evaluation: 14:15 - Subjective Subjective: 82 yr. old male with left leg and foot cellulitis and 2nd toe gangrene, with osteomyelitis with MRSA S/P amputation POD #10, S/P further debridement POD #6 - margins of bone still with osteomyelitis even on latest debridement history of Group G strep bacteremia, probably secondary to bilateral lower extremities skin and skin structure infection; history of rhabdomyolysis CAD HTN chronic renal failure dementia obesity with BMI 32 Pt. seen and examined at bedside. Offers no complaints, denied foot/leg pain, denied chest pain, shortness of breath, dizziness or weakness. Right leg noted with dressing in place. Clean, dry, intact. Pt. s/p pacemaker insertion, denied any pain to Pacemaker insertion site. Review of Systems - Review of Systems All systems: reviewed and no additional remarkable complaints except Objective - Vital Signs/Intake and Output Vital Signs (last 24 hours): Temp Pulse Resp BP Pulse Ox 95 F L 60 14 126/63 98 03/21/18 12:10 03/21/18 12:10 03/21/18 12:10 03/21/18 12:10 03/21/18 12:10 Intake and Output: 03/21/18 03/21/18 06:59 18:59 Intake Total 240 Output Total 300 Balance -60 - Medications Medications: Current Medications Acetaminophen (Tylenol 325mg Tab) 650 mg PO Q4H PRN PRN Reason: Pain, Mild (1-3) Amlodipine Besylate (Norvasc) 5 mg PO BID [facility] Last Admin: 03/21/18 14:16 Dose: Not Given Heparin Sodium (Porcine) (Heparin) 5,000 units SC Q8H [facility]; Protocol Last Admin: 03/12/18 10:11 Dose: 5,000 units Hydralazine HCl (Apresoline) 10 mg PO QID PRN PRN Reason: For sbp>160 Ceftaroline Fosamil 600 mg/ (Sodium Chloride) 100 mls @ 100 mls/hr IVPB Q12 [facility] Last Admin: 03/21/18 14:16 Dose: Not Given Insulin Human Regular (Humulin R Med) 0 units SC ACHS [facility]; Protocol Last Admin: 03/21/18 14:16 Dose: Not Given Losartan Potassium (Cozaar) 25 mg PO DAILY [facility] Last Admin: 03/20/18 09:52 Dose: 25 mg Ondansetron HCl (Zofran Inj) 4 mg IVP ONCE PRN PRN Reason: Nausea/Vomiting Pantoprazole Sodium (Protonix Ec Tab) 20 mg PO 0600,1600 [facility] Last Admin: 03/21/18 06:54 Dose: Not Given - Labs Labs: 03/21/18 05:28 03/21/18 05:28 PT 15.9 SECONDS (9.4-12.5) H 03/21/18 15:41 INR 1.39 03/21/18 15:41 APTT 38.9 Seconds (25.1-36.5) H 03/21/18 15:41 - Constitutional Appears: Well, In Acute Distress - Head Exam Head Exam: NORMAL INSPECTION, NORMOCEPHALIC - Eye Exam Eye Exam: Normal appearance, PERRL - ENT Exam ENT Exam: Mucous Membranes Moist - Neck Exam Neck Exam: Full ROM, Normal Inspection - Respiratory Exam Respiratory Exam: Clear to Ausculation Bilateral, NORMAL BREATHING PATTERN - Cardiovascular Exam Additional comments: Left chest wall noted with Pacemaker incision, no drainage or erythema noted. - GI/Abdominal Exam GI & Abdominal Exam: Soft, Normal Bowel Sounds - Rectal Exam Rectal Exam: Deferred - Exam Exam: NORMAL INSPECTION - Extremities Exam Additional comments: Right foot with dressing in place. - Neurological Exam Neurological Exam: Alert, Awake, Oriented x3 - Psychiatric Exam Psychiatric exam: Normal Affect - Skin Skin Exam: Intact Assessment and Plan - Assessment and Plan (Free Text) Assessment: 1. Severe Bradycardia, is s/p pacemaker insertion today by Dr. Boggs. continue cardiac meds and recs as per cardiology. 2. Osteomyelitis of right foot, 2nd digit, POD #13 amputation - Wound care as per podiatry 3. Infected right foot, 2nd digit, cx revealed MRSA- continue 2 more weeks of IV Teflaro as per I.D, post amputation. 4. Physical deconditioning- s/p pacemaker insertion, will need PT eval post procedure for [facility] as per SW. SW/CM for Discharge planning to [facility] for continuation of IV Teflaro, 2 more weeks. Will continue to follow and monitor clinical status.
--- NOTE | 2018-03-21 17:04 | CP.PCM.PN ---
Subjective - Date & Time of Evaluation Date of Evaluation: 03/21/18 Time of Evaluation: 10:05 - Subjective Subjective: No fevers, no nausea. Objective - Vital Signs/Intake and Output Vital Signs (last 24 hours): Temp Pulse Resp BP Pulse Ox 97.9 F 48 L 19 184/62 H 97 03/20/18 06:00 03/20/18 06:00 03/20/18 06:00 03/20/18 06:00 03/20/18 06:00 Intake and Output: 03/20/18 03/20/18 06:59 18:59 Intake Total 120 Output Total 700 Balance -580 - Medications Medications: Current Medications Acetaminophen (Tylenol 325mg Tab) 650 mg PO Q4H PRN PRN Reason: Pain, Mild (1-3) Amlodipine Besylate (Norvasc) 5 mg PO BID [facility] Last Admin: 03/19/18 17:55 Dose: 5 mg Heparin Sodium (Porcine) (Heparin) 5,000 units SC Q8H [facility]; Protocol Last Admin: 03/12/18 10:11 Dose: 5,000 units Ceftaroline Fosamil 600 mg/ (Sodium Chloride) 100 mls @ 100 mls/hr IVPB Q12 [facility] Last Admin: 03/19/18 21:46 Dose: 100 mls/hr Insulin Human Regular (Humulin R Med) 0 units SC ACHS [facility]; Protocol Last Admin: 03/19/18 23:04 Dose: Not Given Losartan Potassium (Cozaar) 25 mg PO DAILY [facility] Last Admin: 03/19/18 11:19 Dose: 25 mg Ondansetron HCl (Zofran Inj) 4 mg IVP ONCE PRN PRN Reason: Nausea/Vomiting Pantoprazole Sodium (Protonix Ec Tab) 20 mg PO 0600,1600 [facility] Last Admin: 03/20/18 05:51 Dose: 20 mg - Labs Labs: 03/20/18 05:57 03/20/18 05:57 PT 15.7 SECONDS (9.4-12.5) H 03/19/18 07:40 INR 1.36 03/19/18 07:40 APTT 37.1 Seconds (25.1-36.5) H 03/19/18 07:40 - Constitutional Appears: Chronically Ill - Head Exam Head Exam: NORMAL INSPECTION - Respiratory Exam Respiratory Exam: Decreased Breath Sounds - Cardiovascular Exam Cardiovascular Exam: +S1, +S2 - GI/Abdominal Exam GI & Abdominal Exam: Soft. absent: Tenderness - Extremities Exam Additional comments: left foot with dressings in place Assessment and Plan - Assessment and Plan (Free Text) Plan: Assessment left leg and foot cellulitis and 2nd toe gangrene, with osteomyelitis with MRSA S/P amputation, S/P further debridement - margins of bone still with osteom yelitis even on latest debridement history of Group G strep bacteremia, probably secondary to bilateral lower extremities skin and skin structure infection; history of rhabdomyolysis CAD HTN chronic renal failure dementia obesity with BMI 32 Plan continue Teflaro and will need at least 4-6 weeks of antibiotics (from 03/08, time of first surgery) with weekly ESR, CRP, CBC, CMP to be followed by the wound care center while on antibiotics - discussed with Dr. Almendarez previously
--- NOTE | 2018-03-21 18:50 | CARD ---
APPROVED REPORT Date of service: 03/21/2018 HISTORY The Patient is a 82 year-old male with a history of Symptomatic bradycardia, PAD PROCEDURES Insertion Single Chamber Ventricle Pacemaker INDICATIONS Symptomatic bradycardia Multiple pauses SS CONSCIOUS SEDATION AGENTS Versed Fentanyl IMPLANTED DEVICES Medtronic 5076 - 58cm Active V Lead Medtronic ,Pulse generator... KAREN XTSR MRI safe OPERATIVE NOTE The patient was brought to the Cardiac Catheterization Laboratory in a fasting state and was prepped and draped in a sterile manner. The left subclavian region was infiltrated with 2% Lidocaine, subcutaneous anesthesia. A transverse incision was made in the left subclavicular area. The subcutaneous pocket was formed via blunt dissection, Percutaneous venous access was achieved and an introducer sheath was inserted into the Lt Subclavian vein. Through the introducer sheath, the ventricular lead wire was postitioned in the right ventricular apex utilizing fluoroscopic guidance. The ventricular was advanced over the wire under fluoroscopic guidance and positioned in the right ventricle. Capturing and sensing thresholds were verified. THE VENTRICULAR ELECTRODE PARAMETERS R WAVE 6 THRESHOLD0.4 RESISTANCE 550 The ventricular lead was then secured using Silk 0. The subcutaneous pocket was irrigated with Betadine. The ventricular lead was attached to the appropriate receptacle on the pulse generator and set screws firmly tightened to insure adequate contact and stability. The lead and pulse generator were placed into the subcutaneous pocket. Sharp and sponge counts were confirmed to be correct. At this time the pocket was closed subcutaneously with a Vicryl 2.0 and the skin was closed with a Vicryl 4.0 .The operative site was dressed in sterile fashion. The patient tolerated the procedure well and was transferred to the floor in stable condition. COMPLICATIONS The patient tolerated the procedure well and there were no complications associated with the procedure. CONCLUSION Successful PPM VVIR, Medtronic MRI Safe, implanted. Arrangements has been made for f/u in PPM clinic. Cc; Drs. Gibbs / dejon
--- NOTE | 2018-03-21 20:29 | CARD ---
APPROVED REPORT Date of service: 03/21/2018 EKG Measurement Heart [id number] <Conclusion> Electronic ventricular pacemaker
[2018-03-22] MEDS: Pantoprazole 20 mg EC Tab PO SCH ×2 (05:36→18:45)
[2018-03-22 06:10] VITALS: O2SAT 97
[2018-03-22 06:31] LABS: BASO # 0.01 K/mm3 (0.0-2.0); BASO % 0.1 % (0.0-3.0); EOS # 0.4 (0.0-0.7); EOS % 3.8 % (1.5-5.0); GRAN # 6.54 (1.4-6.5); GRAN % 71.8 % (50.0-68.0); LYMPH # 1.4 (1.2-3.4); LYMPH % 14.9 % (22.0-35.0); MEAN CELL VOLUME 82.8 fl (80.0-105.0); MEAN CORPUSCULAR HGB CONC 32.5 g/dl (31.0-37.0); MONO # 0.9 (0.1-0.6); MONO % 9.4 % (1.0-6.0); RBC 4.08 10^6/uL (3.5-6.1); RED CELL DISTRIBUTION WIDTH 13.9 % (11.5-14.5); WHITE BLOOD COUNT 9.1 10^3/uL (4.5-11.0)
[2018-03-22 07:08] LABS: ALBUMIN 3.2 g/dL (3.0-4.8); ALT/SGPT 22 U/L (7-56); AST/SGOT 23 U/L (17-59); BLOOD UREA NITROGEN 29 mg/dL (7-21); CALCIUM 8.6 mg/dL (8.4-10.5); GFR NON-AFRICAN AMERICAN 53
--- NOTE | 2018-03-22 10:35 | CP.PCM.PN ---
Subjective - Date & Time of Evaluation Date of Evaluation: 03/22/18 Time of Evaluation: 06:25 - Subjective Subjective: Lying in bed, Awake, alert, no distress, denies chest pain Reason for consultation and follow up: Cardiac evaluation of bradycardia, status post revision of left 4th digit, sick sinus syndrome post PPM Seen and examined by me and Objective - Vital Signs/Intake and Output Vital Signs (last 24 hours): Temp Pulse Resp BP Pulse Ox 97.9 F 60 19 176/70 H 97 03/22/18 06:00 03/22/18 06:00 03/22/18 06:00 03/22/18 06:00 03/22/18 06:00 Intake and Output: 03/22/18 03/22/18 06:59 18:59 Intake Total 1000 Output Total 1850 Balance -850 - Medications Medications: Current Medications Acetaminophen (Tylenol 325mg Tab) 650 mg PO Q4H PRN PRN Reason: Pain, Mild (1-3) Amlodipine Besylate (Norvasc) 5 mg PO BID [facility] Last Admin: 03/21/18 17:35 Dose: 5 mg Heparin Sodium (Porcine) (Heparin) 5,000 units SC Q8H [facility]; Protocol Last Admin: 03/12/18 10:11 Dose: 5,000 units Hydralazine HCl (Apresoline) 10 mg PO QID PRN PRN Reason: For sbp>160 Ceftaroline Fosamil 600 mg/ (Sodium Chloride) 100 mls @ 100 mls/hr IVPB Q12 [facility] Last Admin: 03/21/18 22:42 Dose: 100 mls/hr Insulin Human Regular (Humulin R Med) 0 units SC ACHS [facility]; Protocol Last Admin: 03/21/18 22:40 Dose: Not Given Losartan Potassium (Cozaar) 25 mg PO DAILY [facility] Last Admin: 03/21/18 17:35 Dose: 25 mg Ondansetron HCl (Zofran Inj) 4 mg IVP ONCE PRN PRN Reason: Nausea/Vomiting Pantoprazole Sodium (Protonix Ec Tab) 20 mg PO 0600,1600 [facility] Last Admin: 03/22/18 05:36 Dose: 20 mg - Labs Labs: 03/22/18 06:00 03/22/18 06:00 PT 15.9 SECONDS (9.4-12.5) H 12/12/18 15:41 INR 1.39 18 15:41 APTT 38.9 Seconds (25.1-36.5) H 03/21/18 15:41 - Constitutional Appears: Non-toxic, No Acute Distress - Head Exam Head Exam: NORMAL INSPECTION, NORMOCEPHALIC - Eye Exam Eye Exam: Normal appearance Pupil Exam: NORMAL ACCOMODATION - ENT Exam ENT Exam: Mucous Membranes Moist, Normal Exam - Respiratory Exam Respiratory Exam: Decreased Breath Sounds, Clear to Ausculation Bilateral, NORMAL BREATHING PATTERN - Cardiovascular Exam Cardiovascular Exam: +S1, +S2 Additional comments: left chest incision intact, PPM site - GI/Abdominal Exam GI & Abdominal Exam: Soft, Normal Bowel Sounds - Extremities Exam Extremities Exam: Full ROM Additional comments: left foot dressing - Neurological Exam Neurological Exam: Alert, Awake, Oriented x3 - Psychiatric Exam Psychiatric exam: Normal Affect, Normal Mood - Skin Skin Exam: Dry, Normal Color, Warm Assessment and Plan - Assessment and Plan (Free Text) Assessment: An 82 year old male who wascame to the ER due to left toe wound. 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 Patient bradycardic and consult was called. Patient is not on betablocker. Placed on Holter monitor.Stress test as outpatient once better from toe surgery.Echo done.LVEF 55%,Aortic sclerosis Vs Mild As, mild mitral regurgitation,trace TR, moderate pulmonic valve regurgitation,no vegetation or thrombus. Initial placement of Holter unable to capture,so on Holter monitor x 24 hours, will follow up result Status post revision of left toe.Holter monitor showed multiple escape beats, Marked sinus malia arrythmia/junctional rhythm and escape beats, Minimum heart rate 30/min, maximum heart rate 97/min, 237 drop beats, longest R-R 2-8 seconds. Wound left toe culture positive for MRSA. Blood culture negative growth. Post PPM, V pacing at 60/min. Plan: Post PPM (single chamber VVI) yesterday, site no bleeding, no hematoma No distress, denies shortness of breath Heart rate V-pacing Cardiac status stable Stable blood pressure Left toe wound culture positive for MRSA, on contact isolation Continue antibiotics as ordered On Norvasc 5 mg BID, Losartan 25 mg daily Continue antibiotics as ordered Continue current treatment Continue current medications Okay to discharge from cardiac standpoint Discharge planning Will follow up Plan and treatment discussed with
--- NOTE | 2018-03-22 11:03 | CP.PCM.PN ---
Subjective - Date & Time of Evaluation Date of Evaluation: 03/22/18 Time of Evaluation: 11:03 - Subjective Subjective: Podiatry progress note for Dr. Hay 82 y/o M patient seen and evaluated at the bedside 9 days S/P revision of left second digit amputation with met head resection. Patient was resting comfortably and NAD. He denies any pain to surgical site. Denies any acute events overnight. Patient denies N/V/F/C/SOB/CP and has no other pedal complaints at this time. Patient seen after he had Pacemaker insertion yesterday. Patient is moving to subacute rehab today. Objective - Vital Signs/Intake and Output Vital Signs (last 24 hours): Temp Pulse Resp BP Pulse Ox 97.9 F 60 19 176/70 H 97 03/22/18 06:00 03/22/18 06:00 03/22/18 06:00 03/22/18 06:00 03/22/18 06:00 Intake and Output: 03/22/18 03/22/18 06:59 18:59 Intake Total 1000 Output Total 1850 Balance -850 - Medications Medications: Current Medications Acetaminophen (Tylenol 325mg Tab) 650 mg PO Q4H PRN PRN Reason: Pain, Mild (1-3) Amlodipine Besylate (Norvasc) 5 mg PO BID [facility] Last Admin: 03/21/18 17:35 Dose: 5 mg Heparin Sodium (Porcine) (Heparin) 5,000 units SC Q8H [facility]; Protocol Last Admin: 03/12/18 10:11 Dose: 5,000 units Hydralazine HCl (Apresoline) 10 mg PO QID PRN PRN Reason: For sbp>160 Ceftaroline Fosamil 600 mg/ (Sodium Chloride) 100 mls @ 100 mls/hr IVPB Q12 [facility] Last Admin: 03/21/18 22:42 Dose: 100 mls/hr Insulin Human Regular (Humulin R Med) 0 units SC ACHS [facility]; Protocol Last Admin: 03/21/18 22:40 Dose: Not Given Losartan Potassium (Cozaar) 25 mg PO DAILY [facility] Last Admin: 03/21/18 17:35 Dose: 25 mg Ondansetron HCl (Zofran Inj) 4 mg IVP ONCE PRN PRN Reason: Nausea/Vomiting Pantoprazole Sodium (Protonix Ec Tab) 20 mg PO 0600,1600 [facility] Last Admin: 03/22/18 05:36 Dose: 20 mg - Labs Labs: 03/22/18 06:00 03/22/18 06:00 PT 15.9 SECONDS (9.4-12.5) H 03/21/18 15:41 INR 1.39 03/21/18 15:41 APTT 38.9 Seconds (25.1-36.5) H 03/21/18 15:41 - Constitutional Appears: Well, Non-toxic, No Acute Distress - Head Exam Head Exam: ATRAUMATIC, NORMOCEPHALIC - Extremities Exam Additional comments: Bilateral lower extremities exam Vasc: faintly palpable pedal pulses bilaterally, Temp gradient warm to cool in the right side and warm to ballpoint pen cartridge tester the left side. Cap refill < 3 sec to all remaining digits. No erythema noted. Mild non pitting edema noted to the left foot. Neuro: Gross and protective sensations are grossly diminished. Derm: Surgical site incision well coapted, sutures intact, no evidence of pus or purulent drainage, No drainage noted through the dressing, no openings or signs of wound dehiscence, no probing, no clinical signs of infection MSK: No pain on palpation of foot or legs bilaterally. Muscle power intact 5/5 to all groups b/l. - Neurological Exam Neurological Exam: Alert, Awake, Oriented x3 Assessment and Plan - Assessment and Plan (Free Text) Assessment: 82 y/o M patient seen and evaluated at the bedside 9 days S/P revision of left second digit amputation with met head resection Plan: Patient seen and evaluated at bedside. Discussed in detail with Dr. Hay Charts, labs ad vitals reviewed; Afebrile, absent leukocytosis Post operative left foot X-ray: small, tiny fragments of bone at the surgical site Wound cx 03/08 - MRSA Wound cx 03/13 - MRSA Continue IV Abx per ID Patient will need 4-6 weeks of IV Abx as per ID Pathology postop - fagments of bone with focal acute OM, fragments of fibrodense tissue with fibroconnective tissue . Continue pain management as needed Patient had Pacemaker insertion today. Surgical site dressing looks C/D/I with no strike through Wound dressed using betadine and DSD. Patient will follow up with Dr. Almendarez at the wound care center upon discharge once/week. Podiatry will continue to follow up the patient while in house
--- NOTE | 2018-03-22 11:08 | PN ---
DATE: 03/22/2018 SUBJECTIVE: The patient is seen earlier today in room 266, bed 1. No fevers. No chills. No nausea. No vomiting. PHYSICAL EXAMINATION: VITAL SIGNS: Temperature 97, blood pressure 170/70, respiratory rate 18. HEENT: Examination of HEENT is unremarkable. NECK: Supple. LUNGS: Decreased breath sounds. HEART: Normal S1, S2. ABDOMEN: Soft, nontender. EXTREMITIES: Foot examination is noted. LABORATORY DATA: White count is 9.1, hemoglobin of 11 and platelets of 150. BUN of 29, creatinine of 1.3. Microbiology reveals MRSA from the wound cultures. The blood cultures are negative. Review of orders reveals the patient to have ceftaroline. ASSESSMENT AND PLAN: This is an 82-year-old with a left leg and left foot cellulitis, second toe gangrene and osteomyelitis with methicillin-resistant Staphylococcus aureus, status post amputation, status post further debridement, margins of the bone still with osteomyelitis even on the latest debridement with a history of group G strep bacteremia, probably secondary to skin infection; coronary artery disease; hypertension; renal failure; dementia. Currently on Teflaro, will need 46 weeks of antibiotics from the time of this first surgery, 03/08/2018 with a weekly sed rate and C-reactive protein and CBC, SMA-18. Case discussed with nursing staff this morning at length and review of orders reveals the patient's Teflaro to be active. Wally Wylie MD
[2018-03-22] MEDS: Ceftaroline 600 MG in Sodium Chloride 0.9% 100 ML IVPB SCH (11:11)
--- NOTE | 2018-03-22 12:02 | RAD ---
Date of service: 03/22/2018 HISTORY: Post pacemaker COMPARISON: 03/21/2018. TECHNIQUE: Chest PA and lateral FINDINGS: LINES AND TUBES: The right PICC line terminates in the SVC. LUNG AND PLEURA: The lungs are well inflated and clear. No pleural effusion or pneumothorax. HEART AND MEDIASTINUM: The heart is not enlarged. There is stable position of left-sided unipolar permanent pacing device. No aortic atherosclerotic calcification present. The hilar and mediastinal contours are within normal limits. SKELETAL STRUCTURES: The bony structures are within normal limits for the patient's age. VISUALIZED UPPER ABDOMEN: Normal. OTHER FINDINGS: None. IMPRESSION: No acute findings. No significant interval change.
--- NOTE | 2018-03-22 16:05 | CP.PCM.DIS ---
Provider - Provider Date of Admission: 02/28/18 16:34 Attending physician: Yousif Lao MD Primary care physician: Kolby Last MD Consults: 02/28/18 16:52 Infectious Disease Consult Routine Comment: Consulting Provider: Wally Wylie Consulting Physician: Wally Wylie Reason for Consult: left 2nd digit wound Vascular Surgery Routine Comment: Consulting Provider: Terrence Bedolla Physician Instructions: Reason For Exam: left 2nd digit wound 02/28/18 17:41 Physician Consult Routine Comment: Consulting Provider: Luis Carlos Almendarez Consulting Physician: Luis Carlos Almendarez Reason for Consult: LLE 2nd distal phalanx ?gangrene/LLE cellulitis 02/28/18 19:29 Social Work Referral Routine Comment: d/c plan Physician Instructions: Reason For Exam: eval 02/28/18 19:58 Case Management Referral Routine Comment: Physician Instructions: Reason For Exam: Reason for Referral: Discharge Planning 03/09/18 10:44 TRCU [Evaluation for TRCU] Routine Comment: gait training Physician Instructions: Reason For Exam: antibiotics 03/13/18 09:43 Cardiology Consult Routine Comment: Consulting Provider: Yousif Boggs Consulting Physician: Yousif Boggs Reason for Consult: bradycardia 03/14/18 16:42 TCU [Evaluation for TRCU] Routine Comment: Physician Instructions: Reason For Exam: pt, iv antibx Time Spent in preparation of Discharge (in minutes): 35 Hospital Course - Lab Results Lab Results: Micro Results 03/18/18 18:30 Blood Blood Culture - Preliminary NO GROWTH AFTER 3 DAYS 03/13/18 19:21 Other: Please Indicate Gram Stain - Final 03/13/18 19:21 Other: Please Indicate Anaerobic Culture - Final NO ANAEROBES ISOLATED. 03/13/18 19:21 Other: Please Indicate Wound Culture - Final Methicillin Resistant S Aureus 03/08/18 12:46 Toe Gram Stain - Final 03/08/18 12:46 Toe Anaerobic Culture - Final NO ANAEROBES ISOLATED. 03/08/18 12:46 Toe Wound Culture - Final Methicillin Resistant S Aureus 03/05/18 09:20 Naris MRSA Culture (Admit) - Final MRSA NOT DETECTED 02/28/18 16:30 Blood Blood Culture - Final NO GROWTH AFTER 5 DAYS 02/28/18 16:30 Blood Gram Stain - Final TEST NOT PERFORMED 02/28/18 15:41 Blood Blood Culture - Final NO GROWTH AFTER 5 DAYS 02/28/18 15:41 Blood Gram Stain - Final TEST NOT PERFORMED 02/28/18 22:59 Urine Urine Culture - Final No Growth (<1,000 CFU/ML) 02/28/18 15:41 Toe Gram Stain - Final 02/28/18 15:41 Toe Wound Culture - Final Methicillin Resistant S Aureus Most Recent Lab Values WBC 9.1 10^3/uL (4.5-11.0) 03/22/18 06:00 RBC 4.08 10^6/uL (3.5-6.1) 03/22/18 06:00 Hgb 11.0 g/dL (14.0-18.0) L 03/22/18 06:00 Hct 33.8 % (42.0-52.0) L 03/22/18 06:00 MCV 82.8 fl (80.0-105.0) 03/22/18 06:00 MCH 27.0 pg (25.0-35.0) 03/22/18 06:00 MCHC 32.5 g/dl (31.0-37.0) 03/22/18 06:00 RDW 13.9 % (11.5-14.5) 03/22/18 06:00 Plt Count 150 10^3/uL (120.0-450.0) 03/22/18 06:00 MPV 9.0 fl (7.0-11.0) 03/22/18 06:00 Gran % 71.8 % (50.0-68.0) H 03/22/18 06:00 Lymph % (Auto) 14.9 % (22.0-35.0) L 03/22/18 06:00 [place] % (Auto) 9.4 % (1.0-6.0) H 03/22/18 06:00 Eos % (Auto) 3.8 % (1.5-5.0) 03/22/18 06:00 Baso % (Auto) 0.1 % (0.0-3.0) 03/22/18 06:00 Gran # 6.54 (1.4-6.5) H 03/22/18 06:00 Lymph # (Auto) 1.4 (1.2-3.4) 03/22/18 06:00 [place] # (Auto) 0.9 (0.1-0.6) H 03/22/18 06:00 Eos # (Auto) 0.4 (0.0-0.7) 03/22/18 06:00 Baso # (Auto) 0.01 K/mm3 (0.0-2.0) 03/22/18 06:00 ESR 76 mm/hr (0.00-15.0) H 02/28/18 15:41 PT 15.9 SECONDS (9.4-12.5) H 03/21/18 15:41 INR 1.39 03/21/18 15:41 APTT 38.9 Seconds (25.1-36.5) H 03/21/18 15:41 Sodium 138 mmol/L (132-148) 03/22/18 06:00 Potassium 4.6 mmol/L (3.6-5.0) 03/22/18 06:00 Chloride 106 mmol/L (98-107) 03/22/18 06:00 Carbon Dioxide 27 mmol/L (21-33) 03/22/18 06:00 Anion Gap 10 (10-20) 03/22/18 06:00 BUN 29 mg/dL (7-21) H 03/22/18 06:00 Creatinine 1.3 mg/dl (0.8-1.5) 03/22/18 06:00 Est GFR ( Amer) > 60 03/22/18 06:00 Est GFR (Non-Af Amer) 53 03/22/18 06:00 POC Glucose (mg/dL) 120 mg/dL (65-110) H 03/19/18 16:29 Random Glucose 97 mg/dL (70-110) 03/22/18 06:00 Hemoglobin A1c 6.2 % (4.2-6.5) 03/14/18 06:30 Calcium 8.6 mg/dL (8.4-10.5) 03/22/18 06:00 Phosphorus 3.6 mg/dL (2.5-4.5) 03/17/18 06:40 Magnesium 2.1 mg/dL (1.7-2.2) 03/17/18 06:40 Total Bilirubin 0.5 mg/dL (0.2-1.3) 03/22/18 06:00 AST 23 U/L (17-59) 03/22/18 06:00 ALT 22 U/L (7-56) 03/22/18 06:00 Alkaline Phosphatase 88 U/L (38-126) 03/22/18 06:00 C-Reactive Protein 69.50 mg/L (0.0-9.9) H 02/28/18 15:41 Total Protein 6.5 g/dL (5.8-8.3) 03/22/18 06:00 Albumin 3.2 g/dL (3.0-4.8) 03/22/18 06:00 Globulin 3.3 gm/dL 03/22/18 06:00 Albumin/Globulin Ratio 1.0 (1.1-1.8) L 03/22/18 06:00 Triglycerides 104 mg/dL (35-160) 03/14/18 06:30 Cholesterol 125 mg/dL (130-200) L 03/14/18 06:30 LDL Cholesterol Direct 76 mg/dL (0-129) 03/14/18 06:30 HDL Cholesterol 25 mg/dL (29-60) L 03/14/18 06:30 Procalcitonin 0.07 NG/ML (0.19-0.49) L 03/01/18 05:30 TSH 3rd Generation 3.92 mIU/mL (0.46-4.68) 03/14/18 06:30 - Hospital Course Hospital Course: Sincere Aparicio, PGY-1 Discharge Summary for Hospitalist Service 82 year old male with past medical history of PAD, COPD, hypertension, and chronic LE cellulitis who presented with complaint of left lower extremity cellulitis and gangrenous left 2nd distal phalanx. Foot MRI was consistent with 2nd proximal/middle phalanx osteomyelitis and wound culture grew MRSA. Patient was placed on IV antibiotic Ceftaroline. ID (Dr. Wylie) and podiatry (Dr. Almendarez) were consulted. Patient went for amputation of L second digit. Patient went again to OR for further bone fragment excision at amputation site after wound culture margins showed persistent OM. Repeat cultures were found to be growing MRSA. As patient will need intermediate card tender iv antibiotics, R PICC line was placed. Patient's and daughter were updated throughout hospital course. Course was complicated by periods of bradycardia in advance of surgery. Patient required pre-op clearance before revision of his second toe. Patient has remained asymptomatic. Cardiology was consulted (Dr. Boggs). Patient was not on beta blockers. EKG was ordered and patient was transferred to telemetry. Holter was applied which showed bradycardia, multiple skipped beats, and pauses. On telemetry, patient was found to be in junctional rhythm with periods of skipped beats and pauses. He was on norvasc and cozaar for hypertension. Hydralazine 10 mg QID was started as needed for BP control. MRI safe pacemaker was placed in L upper chest by Dr. Boggs without complication. EKG thereafter showed 60 bpm in ventricular pacemaker. CXR were performed that showed no disease and no pleural effusion or pneumothorax. Patient was urged to followup in pacemaker clinic per Dr. Boggs. Patient is being transferred to [facility] in [place], and was told to continue his antibiotics for four additional weeks in addition to weekly CBC, CMP, ESR and CRP. Patient was told to follow up in wound care while on antibiotics and have dressings changed every other day per podiatry. Patient was updated on status and questions were answered in detail to patient satisfaction. Patient hemodynamically stable, without any chest pain or foot pain. Patient is to be transferred to subacute rehab in [place]. Patient seen, case reviewed and plan approved by Dr. Tiraod. Discharge Exam - Head Exam Head Exam: ATRAUMATIC - Additional Findings Additional findings: - Constitutional Appears: Well, Non-toxic, No Acute Distress - Head Exam Head Exam: ATRAUMATIC, NORMAL INSPECTION, NORMOCEPHALIC - Eye Exam Eye Exam: EOMI, PERRL - Respiratory Exam Respiratory Exam: Clear to Ausculation Bilateral, NORMAL BREATHING PATTERN, Pacemaker scar in L upper chest, no discharge or blood noted - Cardiovascular Exam Cardiovascular Exam: REGULAR RHYTHM - GI/Abdominal Exam GI & Abdominal Exam: Soft, Normal Bowel Sounds - Back Exam Back Exam: Full ROM - Neurological Exam Neurological Exam: Alert, Awake, CN II-XII Intact, Oriented x3 Neuro motor strength exam: Left Upper Extremity: 5, Right Upper Extremity: 5, Left Lower Extremity: 5, Right Lower Extremity: 5 Extremity: L foot wrapped , dressing for L second toe c/d/i Discharge Plan - Follow Up Plan Condition: STABLE Disposition: REHAB FACILITY/REHAB UNIT Instructions: Osteomyelitis, Sepsis in Adults, Cellulitis (Skin Infection), Adult (DC) Additional Instructions: Please follow up with PCP Dr. Last within one week. You are being discharged to subacute rehab [facility] [place], where you will continue your current medical regimen. Continue with Teflaro for total of 6 weeks (4 more additional weeks) with weekly ESR, CRP, CBC, CMP to be followed by the wound care center weekly and wound dressing changes every other day. Please followup in pacemaker clinic with Dr. Boggs. Should symptoms worsen, visit nearest emergency department. Referrals: Luis Carlos Almendarez DPM [Staff Provider] - Yousif Boggs MD [Staff Provider] - Kolby Last MD [Primary Care Provider] -
[2018-03-22 18:19] VITALS: BP 136/64; RESP 18; TEMP 98.9
[2018-03-22] MEDS: Insulin Reg-MEDIUM-Coverage SC SCH (18:45)
[2018-03-22 18:48] VITALS: PULSE 70
--- NOTE | 2018-03-23 08:32 | PN ---
DATE: 03/21/2018 Additional progress note. The patient in room 256, bed 1. Detailed progress note has been already written by Alejandrina Astorga. This is an additional note. 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 Then, Holter monitor was put on which showed multiple pauses of 2.8 seconds along with severe bradycardia of 30 to 34 per minute, so the patient was advised to have the pacemaker inserted which was done yesterday, VVI pacemaker which is functioning normally, and the wound is healing well. The patient is asymptomatic. The patient's blood cultures prior to insertion of pacemaker were negative. The wound showed MRSA positive. Infectious Disease was consulted and they said as the blood cultures are negative, the patient can have the pacemaker inserted, so we will proceeded with the pacemaker. The patient post-pacemaker is doing well. We will continue present therapy. The patient is on losartan 25 mg daily, amlodipine 5 mg daily, Protonix 20 mg b.i.d. The patient is also getting ceftaroline 600 mg IV every 12 hours. We will follow up. Yousif York MD
== END 2018-03-22 21:12 | DRG 617 ==
LOC: ED 14:57 → ERH 16:34 → 5RNO 19:11 → 2RNO 03-19 20:18
PROVIDERS: ADMIT Internal Medicine; ATTEND Internal Medicine
PROC: 0Y6S0Z0 Detachment at Left 2nd Toe, Complete, Open Approach (ICD-10-PCS; principal; 2018-03-08 07:30)
PROC: 0QBR0ZZ Excision of Left Toe Phalanx, Open Approach (ICD-10-PCS; 2018-03-13)
PROC: 02HV33Z Insertion of Infusion Device into Superior Vena Cava, Percutaneous Approach (ICD-10-PCS; 2018-03-16)
PROC: B51M1ZA Fluoroscopy of Right Upper Extremity Veins using Low Osmolar Contrast, Guidance (ICD-10-PCS; 2018-03-16)
PROC: 0JH605Z Insertion of Pacemaker, Single Chamber Rate Responsive into Chest Subcutaneous Tissue and Fascia, Open Approach (ICD-10-PCS; 2018-03-21)
PROC: 02HK3JZ Insertion of Pacemaker Lead into Right Ventricle, Percutaneous Approach (ICD-10-PCS; 2018-03-21)
DX: E11.69 Type 2 diabetes mellitus with other specified complication (principal); L03.116 Cellulitis of left lower limb; E11.52 Type 2 diabetes mellitus with diabetic peripheral angiopathy with gangrene; M86.172 Other acute osteomyelitis, left ankle and foot; L97.426 Non-pressure chronic ulcer of left heel and midfoot with bone involvement without evidence of necrosis; E11.621 Type 2 diabetes mellitus with foot ulcer; L97.529 Non-pressure chronic ulcer of other part of left foot with unspecified severity; I12.9 Hypertensive chronic kidney disease with stage 1 through stage 4 chronic kidney disease, or unspecified chronic kidney disease; N18.3 Chronic kidney disease, stage 3 (moderate); I49.5 Sick sinus syndrome; E11.22 Type 2 diabetes mellitus with diabetic chronic kidney disease; L03.032 Cellulitis of left toe; J44.9 Chronic obstructive pulmonary disease, unspecified; E11.42 Type 2 diabetes mellitus with diabetic polyneuropathy; B95.62 Methicillin resistant Staphylococcus aureus infection as the cause of diseases classified elsewhere; I25.10 Atherosclerotic heart disease of native coronary artery without angina pectoris; F03.90 Unspecified dementia, unspecified severity, without behavioral disturbance, psychotic disturbance, mood disturbance, and anxiety; I08.3 Combined rheumatic disorders of mitral, aortic and tricuspid valves; D64.9 Anemia, unspecified; E78.5 Hyperlipidemia, unspecified; N20.0 Calculus of kidney; E66.01 Morbid (severe) obesity due to excess calories; Z68.32 Body mass index [BMI] 32.0-32.9, adult; I25.2 Old myocardial infarction; Z79.82 Long term (current) use of aspirin